=== PATIENT | female | born 1945 | race Caucasian/White ===

== ENCOUNTER → 2017-10-29 08:54 | Outpatient (CLI) | payer MEDICARE, OTHER, SELFPAY ==
--- NOTE | 2017-10-29 09:04 | DI.MRI.S_ITS ---
BREAST MRI OF BOTH BREASTS - POST MASTECTOMY: 10/29/2017 CLINICAL: Personal history of breast cancer. Family history of breast cancer. Right breast mass. PROCEDURE: MR BREAST BI WO/W CON INDICATIONS: hx of breast cancer, L mastectomy, abnormality on U/S TECHNIQUE: The patient was placed prone in a dedicated breast imaging coil. Precontrast axial STIR and 3D FLASH without fat saturation sequences were obtained. Both before and after bolus injection of contrast, sequential 1-minute axial 3D FLASH with fat saturation sequences for 3 time points, with subtraction images and maximum intensity projections (MIP's) generated. Delayed sagittal FLASH images with fat saturation were also obtained. Computer-aided detection, including computer algorithm analysis of MRI image data for lesion detection and characterization, pharmacokinetic analysis, with further physician review for interpretation, was performed. COMPARISON: [facility], , ADDITIONAL 1 VIEW, 09/19/2017, 14:07. [facility], US, BREAST UNILATERAL LIMITED, 09/19/2017, 14:43. [facility], MR, BILATERAL BREAST W FINDINGS: Image quality: Excellent. There is moderate background parenchymal enhancement. Right breast: A 3 mm diameter cystic lesion is present within the right breast at 9:00 at an anterior depth. This corresponds with the mammographic and sonographic findings. There is no enhancement. Along the posterior margin of the right breast fibroglandular tissue is a focal region of subtle enhancement. This enhancement is subthreshold for kinetic analysis (series 10, image 65). This is unchanged when compared with the prior MRI dated 10/17/16. This most likely correlates with the region of architectural distortion visualized on the lateral view in the superior breast at a posterior depth. Left breast: The left breast is surgically absent. Miscellaneous: There is no axillary adenopathy. No intramammary adenopathy. Visualized portions of the heart and mediastinum are unremarkable. IMPRESSION: NEGATIVE 1. Benign 3 mm cyst within the right breast at 9:00 which correlates with mammogram and ultrasound findings. 2. Probable MRI correlate to the region of subtle architectural distortion in the right superior breast at a posterior depth at the edge of the fibroglandular tissue. Of note, this region is unchanged when compared with the MRI dated 10/17/16. Given the stable appearance, lack of avid enhancement, and diminished prominence of the architectural distortion on the compression views, annual MRI surveillance in conjunction with annual mammogram is recommended at this time. If this region becomes more conspicuous or there is increased enhancement on future surveillance scans, biopsy should be considered. Electronically Signed By: Bing Gomes M.D. lk/:10/30/2017 16:06:54 copy to: Yoli Mejia ACR BI-RADS Category 1: Negative 3341F
[2017-10-29 09:28] LABS: BUN Creatinine Ratio 23.6 (6-22); Blood Urea Nitrogen 26 mg/dL (7-17)
== END ==
PROVIDERS: Family Provider Family Medicine; PCP Family Medicine; Visit Provider Family Medicine
DX: Z85.3 Personal history of malignant neoplasm of breast (principal); N63.10 Unspecified lump in the right breast, unspecified quadrant; Z80.3 Family history of malignant neoplasm of breast
CPT/HCPCS: 36415; 82565; 84520; A9579; C8908

== ENCOUNTER → 2017-11-26 09:46 | Outpatient (CLI) | payer MEDICARE, OTHER, SELFPAY ==
[2017-11-26 10:39] LABS: Hemoglobin A1C% w Est Avg Glu 6.8 % (4.0-6.0)
[2017-11-26 10:41] LABS: Alanine Aminotransferase 19 IU/L (9-52); Albumin 4.2 g/dL (3.5-5.0); Albumin Globulin Ratio 1.3 (1.0-2.8); Alkaline Phosphatase 67 U/L (38-126); Aspartate Aminotransferase 17 IU/L (14-36); BUN Creatinine Ratio 27.5 (6-22); Bilirubin Total 0.7 mg/dL (0.2-1.3); Blood Urea Nitrogen 33 mg/dL (7-17); Calcium 9.8 mg/dL (8.4-10.2); Carbon Dioxide 28 mmol/L (22-32); Chloride 99 mmol/L (98-107); Estimated Glomerular Filt Rate 44.3 mL/min (>60); Globulin 3.2 g/dL (1.7-4.1); Glucose 127 mg/dL (80-110); HEMOLYSIS < 15 (0-50); Potassium 3.9 mmol/L (3.4-5.1); Sodium 143 mmol/L (137-145); Total Protein 7.4 g/dL (6.3-8.2)
[2017-11-26 10:42] LABS: Creatinine Urine Random 71.3 mg/dL
[2017-11-26 10:46] LABS: Microalbumi Creatinin Ratio Ur 26.6 ug/mg CR (<30); Microalbumin Urine Random 1.9 mg/dL (0-1.6)
== END ==
PROVIDERS: PCP Family Medicine; Visit Provider Family Medicine
DX: E11.9 Type 2 diabetes mellitus without complications (principal); I10 Essential (primary) hypertension; C50.919 Malignant neoplasm of unspecified site of unspecified female breast
CPT/HCPCS: 36415; 80053; 82043; 82570; 83036

== ENCOUNTER → 2018-01-13 11:47 | Outpatient (CLI) | payer MEDICARE, OTHER, SELFPAY | PROVIDERS: Family Provider Family Medicine; PCP Family Medicine; Visit Provider Internal Medicine | DX: L59.8 Other specified disorders of the skin and subcutaneous tissue related to radiation (principal); R07.9 Chest pain, unspecified | CPT/HCPCS: 99212 ==

== ENCOUNTER 2018-02-28 12:02 | Emergency (ER) | payer MEDICARE, OTHER, SELFPAY ==
[2018-02-28 12:17] VITALS: BP 112/60; PULSE 55; RESP 18; TEMP 36.8; O2SAT 98
--- NOTE | 2018-02-28 12:42 | DI.RAD.S_ITS ---
PROCEDURE: XR CHEST 2V INDICATIONS: crackles bilaterally. TECHNIQUE: 2 views of the chest were acquired. COMPARISON: [facility], CHEST 2 VIEW, 07/21/2013, 10:17. [facility], CHEST 2 VIEW, 08/24/2014, 15:48. [facility], CHEST 2 VIEW, 12/26/2015, 13:13. FINDINGS: Surgical changes and devices: Postoperative change of the lower cervical spine and lumbar spine can be seen. Left mastectomy change is seen, with left axillary clips. Lungs and pleura: No pleural effusions or pneumothorax. Lungs are clear. Mediastinum: Mediastinal contours are normal. Heart size is normal. Bones and chest wall: Age-appropriate bony degenerative changes are seen. Mild levoconvex scoliotic curvature is noted. No suspicious bony abnormalities. Soft tissues appear unremarkable. IMPRESSION: Clear lungs. Postoperative and degenerative changes. Dictated by: Juan Mcintyre M.D. on 02/28/2018 at 12:06 Approved by: Juan Mcintyre M.D. on 02/28/2018 at 12:07
[2018-02-28 13:40] LABS: Add Manual Diff / Slide Review NO; Basophils Percent Auto 0.8 % (0-2); Eosinophils Percent Auto 3.9 % (2-4); Hematocrit 35.3 % (36-46); Hemoglobin 11.8 g/dL (12.0-16.0); Lymphocytes Percent Auto 16.3 % (25-40); Mean Corpuscular HGB Conc 33.5 % (30-36); Mean Corpuscular Hemoglobin 28.2 PG (26-34); Mean Corpuscular Volume 84.2 fL (80-100); Monocytes Percent Auto 9.2 % (3-14); Neutrophils Absolute Auto 4500 /uL (3000-5900); Neutrophils Percent Auto 69.8 % (50-75); Platelet Count 292 X10^3/uL (150-400); Red Cell Distribution Width 14.3 % (11.6-14.8); White Blood Cell Count 6.4 X10^3/uL (4.5-11.0)
[2018-02-28 13:51] LABS: PTT Partial Thromboplastin Tim 26 SECONDS (26.4-36.2)
[2018-02-28 13:53] LABS: Alanine Aminotransferase 21 IU/L (9-52); Albumin 4.3 g/dL (3.5-5.0); Albumin Globulin Ratio 1.3 (1.0-2.8); Alkaline Phosphatase 66 U/L (38-126); Aspartate Aminotransferase 17 IU/L (14-36); BUN Creatinine Ratio 26.4 (6-22); Bilirubin Total 0.5 mg/dL (0.2-1.3); Blood Urea Nitrogen 29 mg/dL (7-17); Calcium 9.7 mg/dL (8.4-10.2); Carbon Dioxide 30 mmol/L (22-32); Chloride 99 mmol/L (98-107); Estimated Glomerular Filt Rate 48.8 mL/min (>60); Globulin 3.2 g/dL (1.7-4.1); Glucose 153 mg/dL (80-110); HEMOLYSIS < 15 (0-50); Lipase 225 U/L (23-300); Potassium 3.5 mmol/L (3.4-5.1); Sodium 142 mmol/L (137-145); Total Protein 7.5 g/dL (6.3-8.2)
--- NOTE | 2018-02-28 15:10 | DI.CT.S_ITS ---
PROCEDURE: CT ABDOMEN PELVIS W CON INDICATIONS: abdomen pain, nausea, anorexia, iv contrast only. TECHNIQUE: After the administration of intravenous contrast, 5 mm thick sections acquired from the diaphragm to the symphysis. 5 mm coronal and sagittal reformats were acquired. For radiation dose reduction, the following was used: automated exposure control, adjustment of mA and/or kV according to patient size. COMPARISON: [facility], MR, ABDOMEN W&WO CONTRAST, 10/18/2016, 11:30. [facility], CT, NECK/CHEST/ABD/PEL W CONTRAST, 10/11/2016, 11:07. FINDINGS: Image quality: Excellent. ABDOMEN: Lung bases: Lung bases are clear. Heart size is normal. Postsurgical changes compatible with left mastectomy noted. There is a 0.9 x 3.3 x 1.4 cm focal fluid collection at the left mastectomy site which may represent postsurgical seroma, however infected fluid collection cannot be differentiated by imaging alone Result clinical data. Solid organs: Liver is normal in size and enhancement. Hypoattenuating lesions in the right lobe of the liver are stable and size, contour and number compared to prior examination. Gallbladder is within normal limits. Biliary system is non dilated. Pancreas enhances normally. Spleen is normal in size and enhancement. No adrenal nodules. Kidneys demonstrate normal size and enhancement, without hydronephrosis. Peritoneum and bowel: Bowel loops demonstrate normal wall thickness and caliber. Few diverticuli are noted in the sigmoid colon without evidence of diverticulitis. No free fluid or air. The appendix is normal. Nodes and vessels: No retroperitoneal or mesenteric adenopathy by size criteria. Aorta and inferior vena cava are normal in size. Scattered atherosclerotic calcifications involving the abdominal and pelvic vasculature. Miscellaneous: No ventral hernias. PELVIS: Genitourinary: Bladder wall thickness is normal. 2.9 cm subserosal uterine fibroid is massively changed. Miscellaneous: No inguinal hernias or adenopathy. Bones: No suspicious bony lesions. No vertebral body compression fractures. Spine degenerative disc disease and facet arthropathy. At L1-S1 posterior fixation hardware is stable. L3 and L4 laminectomies are stable. IMPRESSION: 1. 0.9 x 3.3 x 1.4 cm oval fluid collection in the visualized anterior left chest wall at the left mastectomy site that may represent a postsurgical seroma, however infected fluid collection cannot be differentiated by imaging alone. Please correlate with clinical data. 2. No free fluid or free air. 3. No dilated loops of bowel. 4. The appendix is normal. 5. Sigmoid colon diverticulosis without evidence of diverticulitis. 6. 2.9 cm uterine fibroid not significantly changed compared to prior CT scan. Dictated by: Kassy De La Fuente MD, PhD on 02/28/2018 at 15:29 Approved by: Kassy De La Fuente MD, PhD on 02/28/2018 at 15:40
--- NOTE | 2018-02-28 17:07 | ED.ABDPAIN ---
HPI - Abdominal Pain General Chief Complaint: Abdominal Pain Stated Complaint: ABDOMINAL PAIN,PELVIS,CRACKLING IN LUNGS Time Seen by Provider: 02/28/18 16:38 Source: patient Mode of arrival: ambulatory Limitations: no limitations History of Present Illness HPI narrative: Patient is a 72-year-old female who presents with left lower quadrant pain and left flank pain. Sent over from primary care today. She denies any nausea vomiting fevers or diarrhea. Pain is been on going for the month or more but worse over the last 2 days. She sometimes has shortness of breath when she walks, but does not seem to be much of a problem today. she denies any productive cough chest pain or heart palpitations. MD complaint: abdominal pain Onset (ago): month(s) Related Data Home Medications Medication Instructions Recorded Confirmed calcium carbonate [Calci-Chew] 600 mg PO QDAY #0 05/21/17 02/28/18 cholecalciferol (vitamin D3) 2,000 unit PO QDAY #0 06/20/17 02/28/18 CoQ-10 1 cap PO DAILY 02/28/18 02/28/18 [place] 5/16 Inch 1 units SQ HS 02/28/18 02/28/18 alendronate [Fosamax] 70 mg PO SA 02/28/18 02/28/18 aspirin 81 mg PO BEDTIME 02/28/18 02/28/18 cyanocobalamin (vitamin B-12) 1,000 mcg PO DAILY 02/28/18 02/28/18 [Vitamin B-12] gabapentin [Neurontin] 300 mg PO BID 02/28/18 02/28/18 glipizide 20 mg PO BIDAC 02/28/18 02/28/18 losartan 100 mg PO QPM 02/28/18 02/28/18 metformin ER 500 mg 3 tab PO BID tab 02/28/18 02/28/18 tablet,extended release 24 hr methimazole 5 mg PO DAILY 02/28/18 02/28/18 vit C,E-Rp-boycc-lutein-zeaxan 1 cap PO BID 02/28/18 02/28/18 [PreserVision AREDS 2] zolpidem 10 mg tablet 10 mg PO BEDTIME PRN tab 02/28/18 02/28/18 Previous Rx's Medication Instructions Recorded amlodipine 10 mg PO QDAY #90 tab 04/19/17 Glucose: Test Strips 0 str TD BID #180 str 04/30/17 atorvastatin [Lipitor] 10 mg PO HS #90 tab 06/04/17 escitalopram oxalate [Lexapro] 10 mg PO QDAY #90 tab 08/29/17 insulin glargine [Basaglar KwikPen 5 unit SQ HS #5 syr 09/10/17 U-100 Insulin] metoprolol tartrate 100 mg tablet 100 mg PO BID #180 tab 12/02/17 sitagliptin 50 mg tablet 50 mg PO QDAY #90 tab 12/02/17 hydrochlorothiazide 25 mg tablet 25 mg PO QDAY #90 tab 12/25/17 Allergies Allergy/AdvReac Type Severity Reaction Status Date / Time Anesthetics - Amide Type Allergy Intermediate PROJECTILE Verified 02/28/18 12:20 VOMITING Anesthetics - Keke Type- Allergy Intermediate PROJECTILE Verified 02/28/18 12:20 Parabens VOMITING [Anesthetics - Keke Type] Review of Systems Review of Systems All systems reviewed & are unremarkable except as noted in HPI and below Constitutional Denies chills, Denies fever(s), Denies lethargy and Denies weakness Cardiovascular Denies chest pain, Denies irregular heart rhythm, Denies lightheadedness, Denies palpitations, Reports dyspnea on exertion and Denies orthopnea Respiratory Reports dyspnea on exertion Gastrointestinal Gastrointestinal: Reports as per HPI Genitourinary Denies hematuria, Denies flank pain, Denies urinary incontinence and Denies urinary urgency Musculoskeletal Denies back pain, Denies muscle weakness, Denies numbness and Denies tingling Integumentary/Breasts Denies pruritus, Denies erythema, Denies rash and Denies wounds Neurologic Denies numbness, Denies tingling and Denies weakness Endocrine Denies palpitations [facility] Social History Smoking Status: Never smoker Exam Initial Vital Signs Initial Vital Signs: Vital Signs Temperature 98.3 F 02/28/18 12:17 Pulse Rate 55 L 02/28/18 12:17 Respiratory Rate 18 02/28/18 12:17 Blood Pressure 112/60 02/28/18 12:17 Pulse Oximetry 98 02/28/18 12:17 GENERAL: Healthy, cooperative alert and oriented x3 no acute distress HEENT: Head atraumatic,EOMI, pupils reactive, face symmetric CARDIOVASCULAR: Regular rate and rhythm without murmurs, rubs or gallops. RESPIRATORY: Breath sounds equal bilaterally, no wheezes rales or rhonchi. ABDOMEN: Soft, left lower quadrant pain no guarding no rebound : Left flank pain EXTREMITIES: Normal range of motion, no clubbing or edema. Neurovascularly intact NEUROLOGICAL: Alert and oriented x4.Normal gait and speech. Cranial nerves II through XII grossly intact. SKIN: Warm, dry, no laceration, no petechiae, no rashes or lesions. Course Orders Ordered: ED Orders 02/28/18 12:42 Chest [XR chest 2V] Stat EKG-12 Lead Stat 02/28/18 13:35 Complete Blood Count AUTO DIFF Stat Comprehensive Metabolic Panel Stat Lipase Stat Partial Thromboplastin Time Stat Prothrombin Time INR Stat 02/28/18 15:10 CT abdomen pelvis w con Stat 02/28/18 17:23 Urinalysis and Microscopic Stat Vital Signs - 8 hr 02/28/18 12:17 Temperature 98.3 F Pulse Rate 55 L Respiratory Rate 18 Blood Pressure 112/60 Pulse Oximetry 98 MDM - Abdominal Pain Medical Records Attestation: I reviewed the patient's medical records. Lab Data Attestation: I reviewed the patient's lab results. Result diagrams: 02/28/18 13:35 02/28/18 13:35 Lab Results 02/28/18 02/28/18 02/28/18 Range/Units 13:35 13:35 13:35 WBC 6.4 (4.5-11.0) X10^3/uL RBC 4.20 (4.0-5.2) X10^6/uL Hgb 11.8 L (12.0-16.0) g/dL Hct 35.3 L (36-46) % MCV 84.2 (80-100) fL MCH 28.2 (26-34) PG MCHC 33.5 (30-36) % RDW 14.3 (11.6-14.8) % Plt Count 292 (150-400) X10^3/uL Neut % (Auto) 69.8 (50-75) % Lymph % (Auto) 16.3 L (25-40) % [place] % (Auto) 9.2 (3-14) % Eos % (Auto) 3.9 (2-4) % Baso % (Auto) 0.8 (0-2) % Neut # (Auto) 4500 (4052-5232) /uL PT 11.0 (10.1-12.7) SECONDS INR 1.0 (0.9-1.3) APTT 26 L (26.4-36.2) SECONDS Sodium 142 (137-145) mmol/L Potassium 3.5 (3.4-5.1) mmol/L Chloride 99 (98-107) mmol/L Carbon Dioxide 30 (22-32) mmol/L BUN 29 H (7-17) mg/dL Creatinine 1.10 H (0.52-1.04) mg/dL Estimated GFR 48.8 L (>60) mL/min BUN/Creatinine Ratio 26.4 H (6-22) Glucose 153 H (80-110) mg/dL Calcium 9.7 (8.4-10.2) mg/dL Total Bilirubin 0.5 (0.2-1.3) mg/dL AST 17 (14-36) IU/L ALT 21 (9-52) IU/L Alkaline Phosphatase 66 (38-126) U/L Total Protein 7.5 (6.3-8.2) g/dL Albumin 4.3 (3.5-5.0) g/dL Globulin 3.2 (1.7-4.1) g/dL Albumin/Globulin Ratio 1.3 (1.0-2.8) Lipase 225 (23-300) U/L Urine Color Urine Appearance Urine pH (4.5-8.0) Ur Specific [place] (1.000-1.035) Urine Protein (Negative) Urine Glucose (UA) (Normal) g/dL Urine Ketones (NEGATIVE) Urine Occult Blood (Negative) Urine Nitrate (Negative) Urine Bilirubin (NEGATIVE) Urine Urobilinogen (0.2) E.U./dL Ur Leukocyte Esterase (NEGATIVE) Urine RBC (0-5/HPF) Urine WBC (0-5/HPF) Urine Bacteria (None) Ur Culture Indicated? Micro UA Comment 02/28/18 Range/Units 17:23 WBC (4.5-11.0) X10^3/uL RBC (4.0-5.2) X10^6/uL Hgb (12.0-16.0) g/dL Hct (36-46) % MCV (80-100) fL MCH (26-34) PG MCHC (30-36) % RDW (11.6-14.8) % Plt Count (150-400) X10^3/uL Neut % (Auto) (50-75) % Lymph % (Auto) (25-40) % [place] % (Auto) (3-14) % Eos % (Auto) (2-4) % Baso % (Auto) (0-2) % Neut # (Auto) (7760-9611) /uL PT (10.1-12.7) SECONDS INR (0.9-1.3) APTT (26.4-36.2) SECONDS Sodium (137-145) mmol/L Potassium (3.4-5.1) mmol/L Chloride (98-107) mmol/L Carbon Dioxide (22-32) mmol/L BUN (7-17) mg/dL Creatinine (0.52-1.04) mg/dL Estimated GFR (>60) mL/min BUN/Creatinine Ratio (6-22) Glucose (80-110) mg/dL Calcium (8.4-10.2) mg/dL Total Bilirubin (0.2-1.3) mg/dL AST (14-36) IU/L ALT (9-52) IU/L Alkaline Phosphatase (38-126) U/L Total Protein (6.3-8.2) g/dL Albumin (3.5-5.0) g/dL Globulin (1.7-4.1) g/dL Albumin/Globulin Ratio (1.0-2.8) Lipase (23-300) U/L Urine Color Yellow Urine Appearance Clear Urine pH 7.5 (4.5-8.0) Ur Specific [place] 1.010 (1.000-1.035) Urine Protein Negative (Negative) Urine Glucose (UA) Negative (Normal) g/dL Urine Ketones Negative (NEGATIVE) Urine Occult Blood Negative (Negative) Urine Nitrate Negative (Negative) Urine Bilirubin Negative (NEGATIVE) Urine Urobilinogen 0.2 (0.2) E.U./dL Ur Leukocyte Esterase Negative (NEGATIVE) Urine RBC None seen (0-5/HPF) Urine WBC None seen (0-5/HPF) Urine Bacteria None seen (None) Ur Culture Indicated? Not Reportable Micro UA Comment Not Reportable Imaging Data Chest x-ray: Radiologist's impression: PROCEDURE: XR CHEST 2V INDICATIONS: crackles bilaterally. TECHNIQUE: 2 views of the chest were acquired. COMPARISON: [facility], CHEST 2 VIEW, 07/21/2013, 10:17. [facility], CHEST 2 VIEW, 08/24/2014, 15:48. [facility], CHEST 2 VIEW, 12/26/2015, 13:13. FINDINGS: Surgical changes and devices: Postoperative change of the lower cervical spine and lumbar spine can be seen. Left mastectomy change is seen, with left axillary clips. Lungs and pleura: No pleural effusions or pneumothorax. Lungs are clear. Mediastinum: Mediastinal contours are normal. Heart size is normal. Bones and chest wall: Age-appropriate bony degenerative changes are seen. Mild levoconvex scoliotic curvature is noted. No suspicious bony abnormalities. Soft tissues appear unremarkable. IMPRESSION: Clear lungs. Postoperative and degenerative changes. Dictated by: Juan Mcintyre M.D. on 02/28/2018 at 12:06 CT scan - abdomen: Radiologist's impression: PROCEDURE: CT ABDOMEN PELVIS W CON INDICATIONS: abdomen pain, nausea, anorexia, iv contrast only. TECHNIQUE: After the administration of intravenous contrast, 5 mm thick sections acquired from the diaphragm to the symphysis. 5 mm coronal and sagittal reformats were acquired. For radiation dose reduction, the following was used: automated exposure control, adjustment of mA and/or kV according to patient size. COMPARISON: [facility], MR, ABDOMEN W&WO CONTRAST, 10/18/2016, 11:30. [facility], CT, NECK/CHEST/ABD/PEL W CONTRAST, 10/11/2016, 11:07. FINDINGS: Image quality: Excellent. ABDOMEN: Lung bases: Lung bases are clear. Heart size is normal. Postsurgical changes compatible with left mastectomy noted. There is a 0.9 x 3.3 x 1.4 cm focal fluid collection at the left mastectomy site which may represent postsurgical seroma, however infected fluid collection cannot be differentiated by imaging alone Result clinical data. Solid organs: Liver is normal in size and enhancement. Hypoattenuating lesions in the right lobe of the liver are stable and size, contour and number compared to prior examination. Gallbladder is within normal limits. Biliary system is non dilated. Pancreas enhances normally. Spleen is normal in size and enhancement. No adrenal nodules. Kidneys demonstrate normal size and enhancement, without hydronephrosis. Peritoneum and bowel: Bowel loops demonstrate normal wall thickness and caliber. Few diverticuli are noted in the sigmoid colon without evidence of diverticulitis. No free fluid or air. The appendix is normal. Nodes and vessels: No retroperitoneal or mesenteric adenopathy by size criteria. Aorta and inferior vena cava are normal in size. Scattered atherosclerotic calcifications involving the abdominal and pelvic vasculature. Miscellaneous: No ventral hernias. PELVIS: Genitourinary: Bladder wall thickness is normal. 2.9 cm subserosal uterine fibroid is massively changed. Miscellaneous: No inguinal hernias or adenopathy. Bones: No suspicious bony lesions. No vertebral body compression fractures. Spine degenerative disc disease and facet arthropathy. At L1-S1 posterior fixation hardware is stable. L3 and L4 laminectomies are stable. IMPRESSION: 1. 0.9 x 3.3 x 1.4 cm oval fluid collection in the visualized anterior left chest wall at the left mastectomy site that may represent a postsurgical seroma, however infected fluid collection cannot be differentiated by imaging alone. Please correlate with clinical data. 2. No free fluid or free air. 3. No dilated loops of bowel. 4. The appendix is normal. 5. Sigmoid colon diverticulosis without evidence of diverticulitis. 6. 2.9 cm uterine fibroid not significantly changed compared to prior CT scan. Dictated by: Kassy De La Fuente MD, PhD on 02/28/2018 at 15:29 ECG Data Attestation: I personally reviewed and interpreted this ECG as follows: Prior ECG tracings: available for review Interpretation: Normal sinus rhythm rate [address] changes MS interval 207, QTC to 88 QRS as 83. 1st degree AV heart block remains unchanged from previous EKG in 2017 [facility] Narrative Medical decision making narrative: Patient is mostly complaining of all left lower quadrant and flank pain. CT does show a seroma left anterior chest where her mastectomy was. She is not complaining of any chest discomfort. He is with afebrile this is unlikely the cause of her left lower quadrant pain. Blood work is unremarkable. Patient overall is feeling much better ready and able to go home. PE was considered she does have breast cancer. His she really is more complaining of abdominal discomfort she is not hypoxic or tachycardic her lungs are clear. At this time I do not think further imaging is required. Discharge Plan Departure Patient Disposition: Home Clinical Impression: Abdominal pain Discharge Date/Time: 02/28/18 18:39 Interventions: ED Discharge Assessment Last Done: 02/28/18 18:39 Instructions: Acute Abdominal Pain Activity Restrictions/Additional Instructions: *You have been diagnosed with abdominal pain *What to do: Blood work and urine are reassuring. CT scan does show a fluid collection on the left chest unlikely to be causing any issues or problems today. *Continue to take medications as directed *Follow up with your primary care provider in 2-3 days *Return to ER if you should have worsening pain, fever, numbness, tingling or any new, worsening or concerning symptoms Prescriptions: No Action amlodipine 10 MG tablet 10 mg PO QDAY Qty: 90 RF: 3 Glucose: Test Strips TD BID Qty: 180 RF: 11 calcium carbonate [Calci-Chew] 500 MG tablet,chewable 600 mg PO QDAY Qty: 0 RF: 0 atorvastatin [Lipitor] 10 MG tablet 10 mg PO HS Qty: 90 RF: 3 cholecalciferol (vitamin D3) 5,000 UNIT capsule 2,000 unit PO QDAY Qty: 0 RF: 0 escitalopram oxalate [Lexapro] 10 MG tablet 10 mg PO QDAY Qty: 90 RF: 3 insulin glargine [Basaglar KwikPen U-100 Insulin] 100 UNIT/1 ML insulin pen 5 unit SQ HS Qty: 5 RF: 1 hydrochlorothiazide 25 mg tablet 25 mg PO QDAY Qty: 90 RF: 1 metoprolol tartrate [Lopressor] 100 mg tablet 100 mg PO BID Qty: 180 RF: 3 sitagliptin [Januvia] 50 mg tablet 50 mg PO QDAY Qty: 90 RF: 3 zolpidem [Ambien] 10 mg tablet 10 mg PO BEDTIME PRN (Reason: Sleep) RF: 0 metformin [Glucophage XR] 500 mg tablet extended release 24 hr 3 tab PO BID RF: 0 methimazole 5 mg tablet 5 mg PO DAILY RF: 0 [place] 5/16 Inch 1 units SQ HS RF: 0 cyanocobalamin (vitamin B-12) [Vitamin B-12] 1,000 mcg Tablet 1,000 mcg PO DAILY RF: 0 aspirin 81 mg Tablet,Delayed Release (Dr/Ec) 81 mg PO BEDTIME RF: 0 vit C,X-Ed-foluu-lutein-zeaxan [PreserVision AREDS 2] [id number]-mg Capsule 1 cap PO BID RF: 0 CoQ-10 1 cap PO DAILY RF: 0 glipizide 10 mg tablet 20 mg PO BIDAC RF: 0 alendronate [Fosamax] 70 MG tablet 70 mg PO SA RF: 0 gabapentin [Neurontin] 300 MG capsule 300 mg PO BID RF: 0 losartan 100 mg tablet 100 mg PO QPM RF: 0 Referrals: Yoli Mejia MD [Primary Care Provider] -
[2018-02-28 17:27] LABS: Appearance Urine UA CLEAR; Bacteria Urine None Seen; Bilirubin Urine UA NEGATIVE (NEGATIVE); Color Urine UA YELLOW; Glucose Urine UA NEGATIVE (Normal); Ketones Urine UA NEGATIVE (NEGATIVE); Leukocyte Esterase Urine UA NEGATIVE (NEGATIVE); Nitrite Urine UA Negative (Negative); Occult Blood Urine UA NEGATIVE (Negative); Protein Urine UA NEGATIVE (Negative); RBC Urine None Seen (0-5/HPF); Urobilinogen Urine UA 0.2 E.U./dL (0.2); WBC Urine None Seen (0-5/HPF); pH Urine UA 7.5 (4.5-8.0)
--- NOTE | 2018-02-28 18:31 | ED_ITS ---
HPI - Abdominal Pain General Chief Complaint: Abdominal Pain Stated Complaint: ABDOMINAL PAIN,PELVIS,CRACKLING IN LUNGS Time Seen by Provider: 02/28/18 16:38 Source: patient Mode of arrival: ambulatory Limitations: no limitations History of Present Illness HPI narrative: Patient is a 72-year-old female who presents with left lower quadrant pain and left flank pain. Sent over from primary care today. She denies any nausea vomiting fevers or diarrhea. Pain is been on going for the month or more but worse over the last 2 days. She sometimes has shortness of breath when she walks, but does not seem to be much of a problem today. she denies any productive cough chest pain or heart palpitations. MD complaint: abdominal pain Onset (ago): month(s) Related Data Home Medications Medication Instructions Recorded Confirmed calcium carbonate [Calci-Chew] 600 mg PO QDAY #0 05/21/17 02/28/18 cholecalciferol (vitamin D3) 2,000 unit PO QDAY #0 06/20/17 02/28/18 CoQ-10 1 cap PO DAILY 02/28/18 02/28/18 [place] 5/16 Inch 1 units SQ HS 02/28/18 02/28/18 alendronate [Fosamax] 70 mg PO SA 02/28/18 02/28/18 aspirin 81 mg PO BEDTIME 02/28/18 02/28/18 cyanocobalamin (vitamin B-12) 1,000 mcg PO DAILY 02/28/18 02/28/18 [Vitamin B-12] gabapentin [Neurontin] 300 mg PO BID 02/28/18 02/28/18 glipizide 20 mg PO BIDAC 02/28/18 02/28/18 losartan 100 mg PO QPM 02/28/18 02/28/18 metformin ER 500 mg 3 tab PO BID tab 02/28/18 02/28/18 tablet,extended release 24 hr methimazole 5 mg PO DAILY 02/28/18 02/28/18 vit C,Q-Bz-fpfhc-lutein-zeaxan 1 cap PO BID 02/28/18 02/28/18 [PreserVision AREDS 2] zolpidem 10 mg tablet 10 mg PO BEDTIME PRN tab 02/28/18 02/28/18 Previous Rx's Medication Instructions Recorded amlodipine 10 mg PO QDAY #90 tab 04/19/17 Glucose: Test Strips 0 str TD BID #180 str 04/30/17 atorvastatin [Lipitor] 10 mg PO HS #90 tab 06/04/17 escitalopram oxalate [Lexapro] 10 mg PO QDAY #90 tab 08/29/17 insulin glargine [Basaglar KwikPen 5 unit SQ HS #5 syr 09/10/17 U-100 Insulin] metoprolol tartrate 100 mg tablet 100 mg PO BID #180 tab 12/02/17 sitagliptin 50 mg tablet 50 mg PO QDAY #90 tab 12/02/17 hydrochlorothiazide 25 mg tablet 25 mg PO QDAY #90 tab 12/25/17 Allergies Allergy/AdvReac Type Severity Reaction Status Date / Time Anesthetics - Amide Type Allergy Intermediate PROJECTILE Verified 02/28/18 12:20 VOMITING Anesthetics - Keke Type- Allergy Intermediate PROJECTILE Verified 02/28/18 12: 20 Parabens VOMITING [Anesthetics - Keke Type] Review of Systems Review of Systems All systems reviewed & are unremarkable except as noted in HPI and below Constitutional Denies chills, Denies fever(s), Denies lethargy and Denies weakness Cardiovascular Denies chest pain, Denies irregular heart rhythm, Denies lightheadedness, Denies palpitations, Reports dyspnea on exertion and Denies orthopnea Respiratory Reports dyspnea on exertion Gastrointestinal Gastrointestinal: Reports as per HPI Genitourinary Denies hematuria, Denies flank pain, Denies urinary incontinence and Denies urinary urgency Musculoskeletal Denies back pain, Denies muscle weakness, Denies numbness and Denies tingling Integumentary/Breasts Denies pruritus, Denies erythema, Denies rash and Denies wounds Neurologic Denies numbness, Denies tingling and Denies weakness Endocrine Denies palpitations [facility] Social History Smoking Status: Never smoker Exam Initial Vital Signs Initial Vital Signs: Vital Signs Temperature 98.3 F 02/28/18 12:17 Pulse Rate 55 L 02/28/18 12:17 Respiratory Rate 18 02/28/18 12:17 Blood Pressure 112/60 02/28/18 12:17 Pulse Oximetry 98 02/28/18 12:17 GENERAL: Healthy, cooperative alert and oriented x3 no acute distress HEENT: Head atraumatic,EOMI, pupils reactive, face symmetric CARDIOVASCULAR: Regular rate and rhythm without murmurs, rubs or gallops. RESPIRATORY: Breath sounds equal bilaterally, no wheezes rales or rhonchi. ABDOMEN: Soft, left lower quadrant pain no guarding no rebound : Left flank pain EXTREMITIES: Normal range of motion, no clubbing or edema. Neurovascularly intact NEUROLOGICAL: Alert and oriented x4.Normal gait and speech. Cranial nerves II through XII grossly intact. SKIN: Warm, dry, no laceration, no petechiae, no rashes or lesions. Course Orders Ordered: ED Orders 02/28/18 12:42 Chest [XR chest 2V] Stat EKG-12 Lead Stat 02/28/18 13:35 Complete Blood Count AUTO DIFF Stat Comprehensive Metabolic Panel Stat Lipase Stat Partial Thromboplastin Time Stat Prothrombin Time INR Stat 02/28/18 15:10 CT abdomen pelvis w con Stat 02/28/18 17:23 Urinalysis and Microscopic Stat Vital Signs - 8 hr 02/28/18 12:17 Temperature 98.3 F Pulse Rate 55 L Respiratory Rate 18 Blood Pressure 112/60 Pulse Oximetry 98 MDM - Abdominal Pain Medical Records Attestation: I reviewed the patient's medical records. Lab Data Attestation: I reviewed the patient's lab results. Result diagrams: 02/28/18 13:35 02/28/18 13:35 Lab Results 02/28/18 02/28/18 02/28/18 Range/Units 13:35 13:35 13:35 WBC 6.4 (4.5-11.0) X10^3/uL RBC 4.20 (4.0-5.2) X10^6/uL Hgb 11.8 L (12.0-16.0) g/dL Hct 35.3 L (36-46) % MCV 84.2 (80-100) fL MCH 28.2 (26-34) PG MCHC 33.5 (30-36) % RDW 14.3 (11.6-14.8) % Plt Count 292 (150-400) X10^3/uL Neut % (Auto) 69.8 (50-75) % Lymph % (Auto) 16.3 L (25-40) % [place] % (Auto) 9.2 (3-14) % Eos % (Auto) 3.9 (2-4) % Baso % (Auto) 0.8 (0-2) % Neut # (Auto) 4500 (6515-5118) /uL PT 11.0 (10.1-12.7) SECONDS INR 1.0 (0.9-1.3) APTT 26 L (26.4-36.2) SECONDS Sodium 142 (137-145) mmol/L Potassium 3.5 (3.4-5.1) mmol/L Chloride 99 (98-107) mmol/L Carbon Dioxide 30 (22-32) mmol/L BUN 29 H (7-17) mg/dL Creatinine 1.10 H (0.52-1.04) mg/dL Estimated GFR 48.8 L (>60) mL/min BUN/Creatinine Ratio 26.4 H (6-22) Glucose 153 H (80-110) mg/dL Calcium 9.7 (8.4-10.2) mg/dL Total Bilirubin 0.5 (0.2-1.3) mg/dL AST 17 (14-36) IU/L ALT 21 (9-52) IU/L Alkaline Phosphatase 66 (38-126) U/L Total Protein 7.5 (6.3-8.2) g/dL Albumin 4.3 (3.5-5.0) g/dL Globulin 3.2 (1.7-4.1) g/dL Albumin/Globulin Ratio 1.3 (1.0-2.8) Lipase 225 (23-300) U/L Urine Color Urine Appearance Urine pH (4.5-8.0) Ur Specific [place] (1.000-1.035) Urine Protein (Negative) Urine Glucose (UA) (Normal) g/dL Urine Ketones (NEGATIVE) Urine Occult Blood (Negative) Urine Nitrate (Negative) Urine Bilirubin (NEGATIVE) Urine Urobilinogen (0.2) E.U./dL Ur Leukocyte Esterase (NEGATIVE) Urine RBC (0-5/HPF) Urine WBC (0-5/HPF) Urine Bacteria (None) Ur Culture Indicated? Micro UA Comment 02/28/18 Range/Units 17:23 WBC (4.5-11.0) X10^3/uL RBC (4.0-5.2) X10^6/uL Hgb (12.0-16.0) g/dL Hct (36-46) % MCV (80-100) fL MCH (26-34) PG MCHC (30-36) % RDW (11.6-14.8) % Plt Count (150-400) X10^3/uL Neut % (Auto) (50-75) % Lymph % (Auto) (25-40) % [place] % (Auto) (3-14) % Eos % (Auto) (2-4) % Baso % (Auto) (0-2) % Neut # (Auto) (1578-9627) /uL PT (10.1-12.7) SECONDS INR (0.9-1.3) APTT (26.4-36.2) SECONDS Sodium (137-145) mmol/L Potassium (3.4-5.1) mmol/L Chloride (98-107) mmol/L Carbon Dioxide (22-32) mmol/L BUN (7-17) mg/dL Creatinine (0.52-1.04) mg/dL Estimated GFR (>60) mL/min BUN/Creatinine Ratio (6-22) Glucose (80-110) mg/dL Calcium (8.4-10.2) mg/dL Total Bilirubin (0.2-1.3) mg/dL AST (14-36) IU/L ALT (9-52) IU/L Alkaline Phosphatase (38-126) U/L Total Protein (6.3-8.2) g/dL Albumin (3.5-5.0) g/dL Globulin (1.7-4.1) g/dL Albumin/Globulin Ratio (1.0-2.8) Lipase (23-300) U/L Urine Color Yellow Urine Appearance Clear Urine pH 7.5 (4.5-8.0) Ur Specific [place] 1.010 (1.000-1.035) Urine Protein Negative (Negative) Urine Glucose (UA) Negative (Normal) g/dL Urine Ketones Negative (NEGATIVE) Urine Occult Blood Negative (Negative) Urine Nitrate Negative (Negative) Urine Bilirubin Negative (NEGATIVE) Urine Urobilinogen 0.2 (0.2) E.U./dL Ur Leukocyte Esterase Negative (NEGATIVE) Urine RBC None seen (0-5/HPF) Urine WBC None seen (0-5/HPF) Urine Bacteria None seen (None) Ur Culture Indicated? Not Reportable Micro UA Comment Not Reportable Imaging Data Chest x-ray: Radiologist's impression: PROCEDURE: XR CHEST 2V INDICATIONS: crackles bilaterally. TECHNIQUE: 2 views of the chest were acquired. COMPARISON: [facility], CHEST 2 VIEW, 07/21/2013, 10:17. [facility], CHEST 2 VIEW, 08/24/2014, 15:48. [facility], CHEST 2 VIEW, 12/26/2015, 13:13. FINDINGS: Surgical changes and devices: Postoperative change of the lower cervical spine and lumbar spine can be seen. Left mastectomy change is seen, with left axillary clips. Lungs and pleura: No pleural effusions or pneumothorax. Lungs are clear. Mediastinum: Mediastinal contours are normal. Heart size is normal. Bones and chest wall: Age-appropriate bony degenerative changes are seen. Mild levoconvex scoliotic curvature is noted. No suspicious bony abnormalities. Soft tissues appear unremarkable. IMPRESSION: Clear lungs. Postoperative and degenerative changes. Dictated by: Juan Mcintyre M.D. on 02/28/2018 at 12:06 CT scan - abdomen: Radiologist's impression: PROCEDURE: CT ABDOMEN PELVIS W CON INDICATIONS: abdomen pain, nausea, anorexia, iv contrast only. TECHNIQUE: After the administration of intravenous contrast, 5 mm thick sections acquired from the diaphragm to the symphysis. 5 mm coronal and sagittal reformats were acquired. For radiation dose reduction, the following was used: automated exposure control, adjustment of mA and/or kV according to patient size. COMPARISON: [facility], MR, ABDOMEN W&WO CONTRAST, 10/18/2016, 11:30. [facility], CT, NECK/CHEST/ABD/PEL W CONTRAST, 10/11/2016, 11:07. FINDINGS: Image quality: Excellent. ABDOMEN: Lung bases: Lung bases are clear. Heart size is normal. Postsurgical changes compatible with left mastectomy noted. There is a 0.9 x 3.3 x 1.4 cm focal fluid collection at the left mastectomy site which may represent postsurgical seroma, however infected fluid collection cannot be differentiated by imaging alone Result clinical data. Solid organs: Liver is normal in size and enhancement. Hypoattenuating lesions in the right lobe of the liver are stable and size, contour and number compared to prior examination. Gallbladder is within normal limits. Biliary system is non dilated. Pancreas enhances normally. Spleen is normal in size and enhancement. No adrenal nodules. Kidneys demonstrate normal size and enhancement, without hydronephrosis. Peritoneum and bowel: Bowel loops demonstrate normal wall thickness and caliber. Few diverticuli are noted in the sigmoid colon without evidence of diverticulitis. No free fluid or air. The appendix is normal. Nodes and vessels: No retroperitoneal or mesenteric adenopathy by size criteria. Aorta and inferior vena cava are normal in size. Scattered atherosclerotic calcifications involving the abdominal and pelvic vasculature. Miscellaneous: No ventral hernias. PELVIS: Genitourinary: Bladder wall thickness is normal. 2.9 cm subserosal uterine fibroid is massively changed. Miscellaneous: No inguinal hernias or adenopathy. Bones: No suspicious bony lesions. No vertebral body compression fractures. Spine degenerative disc disease and facet arthropathy. At L1-S1 posterior fixation hardware is stable. L3 and L4 laminectomies are stable. IMPRESSION: 1. 0.9 x 3.3 x 1.4 cm oval fluid collection in the visualized anterior left chest wall at the left mastectomy site that may represent a postsurgical seroma, however infected fluid collection cannot be differentiated by imaging alone. Please correlate with clinical data. 2. No free fluid or free air. 3. No dilated loops of bowel. 4. The appendix is normal. 5. Sigmoid colon diverticulosis without evidence of diverticulitis. 6. 2.9 cm uterine fibroid not significantly changed compared to prior CT scan. Dictated by: Kassy De La Fuente MD, PhD on 02/28/2018 at 15:29 ECG Data Attestation: I personally reviewed and interpreted this ECG as follows: Prior ECG tracings: available for review Interpretation: Normal sinus rhythm rate [address] changes MS interval 207, QTC to 88 QRS as 83. 1st degree AV heart block remains unchanged from previous EKG in 2017 [facility] Narrative Medical decision making narrative: Patient is mostly complaining of all left lower quadrant and flank pain. CT does show a seroma left anterior chest where her mastectomy was. She is not complaining of any chest discomfort. He is with afebrile this is unlikely the cause of her left lower quadrant pain. Blood work is unremarkable. Patient overall is feeling much better ready and able to go home. PE was considered she does have breast cancer. His she really is more complaining of abdominal discomfort she is not hypoxic or tachycardic her lungs are clear. At this time I do not think further imaging is required. Discharge Plan Departure Patient Disposition: Home Clinical Impression: Abdominal pain Discharge Date/Time: 02/28/18 18:39 Interventions: ED Discharge Assessment Last Done: 02/28/18 18:39 Instructions: Acute Abdominal Pain Activity Restrictions/Additional Instructions: *You have been diagnosed with abdominal pain *What to do: Blood work and urine are reassuring. CT scan does show a fluid collection on the left chest unlikely to be causing any issues or problems today. *Continue to take medications as directed *Follow up with your primary care provider in 2-3 days *Return to ER if you should have worsening pain, fever, numbness, tingling or any new, worsening or concerning symptoms Prescriptions: No Action amlodipine 10 MG tablet 10 mg PO QDAY Qty: 90 RF: 3 Glucose: Test Strips TD BID Qty: 180 RF: 11 calcium carbonate [Calci-Chew] 500 MG tablet,chewable 600 mg PO QDAY Qty: 0 RF: 0 atorvastatin [Lipitor] 10 MG tablet 10 mg PO HS Qty: 90 RF: 3 cholecalciferol (vitamin D3) 5,000 UNIT capsule 2,000 unit PO QDAY Qty: 0 RF: 0 escitalopram oxalate [Lexapro] 10 MG tablet 10 mg PO QDAY Qty: 90 RF: 3 insulin glargine [Basaglar KwikPen U-100 Insulin] 100 UNIT/1 ML insulin pen 5 unit SQ HS Qty: 5 RF: 1 hydrochlorothiazide 25 mg tablet 25 mg PO QDAY Qty: 90 RF: 1 metoprolol tartrate [Lopressor] 100 mg tablet 100 mg PO BID Qty: 180 RF: 3 sitagliptin [Januvia] 50 mg tablet 50 mg PO QDAY Qty: 90 RF: 3 zolpidem [Ambien] 10 mg tablet 10 mg PO BEDTIME PRN (Reason: Sleep) RF: 0 metformin [Glucophage XR] 500 mg tablet extended release 24 hr 3 tab PO BID RF: 0 methimazole 5 mg tablet 5 mg PO DAILY RF: 0 [place] 5/16 Inch 1 units SQ HS RF: 0 cyanocobalamin (vitamin B-12) [Vitamin B-12] 1,000 mcg Tablet 1,000 mcg PO DAILY RF: 0 aspirin 81 mg Tablet,Delayed Release (Dr/Ec) 81 mg PO BEDTIME RF: 0 vit C,Z-Wf-wjogv-lutein-zeaxan [PreserVision AREDS 2] [phone] mg-unit-mg- mg Capsule 1 cap PO BID RF: 0 CoQ-10 1 cap PO DAILY RF: 0 glipizide 10 mg tablet 20 mg PO BIDAC RF: 0 alendronate [Fosamax] 70 MG tablet 70 mg PO SA RF: 0 gabapentin [Neurontin] 300 MG capsule 300 mg PO BID RF: 0 losartan 100 mg tablet 100 mg PO QPM RF: 0 Referrals: Yoli Mejia MD [Primary Care Provider] -
--- NOTE | 2018-02-28 18:38 | PC.NURSE ---
intermittent lt lower abd pain for weeks denies palliation/provocation nontender denies nausea/vomiting/diarrhea/dysuria/fever/trauma or other sx
[2018-02-28 18:39] VITALS: BP 114/70; PULSE 54; RESP 18; O2SAT 97
[2018-02-28 18:45] VITALS: BP 139/70; PULSE 66; RESP 16; O2SAT 94
== END 2018-02-28 18:39 | disposition home or self-care (01) ==
PROVIDERS: Emergency Provider Emergency Medicine; Family Provider Family Medicine; PCP Family Medicine
DX: R10.9 Unspecified abdominal pain (principal)
CPT/HCPCS: 36591; 71046; 74177; 80053; 81001; 83690; 85025; 85610; 85730; 93005; 99282; 99285; Q9967

== ENCOUNTER → 2018-03-17 12:59 | Outpatient (CLI) | payer MEDICARE, OTHER, SELFPAY ==
[2018-03-17 13:29] LABS: Add Manual Diff / Slide Review NO; Eosinophils Percent Auto 2.7 % (2-4); Hematocrit 36.9 % (36-46); Hemoglobin 12.3 g/dL (12.0-16.0); Lymphocytes Percent Auto 16.1 % (25-40); Mean Corpuscular HGB Conc 33.4 % (30-36); Mean Corpuscular Hemoglobin 28.1 PG (26-34); Mean Corpuscular Volume 84.1 fL (80-100); Neutrophils Absolute Auto 5000 /uL (3000-5900); Neutrophils Percent Auto 70.2 % (50-75); Platelet Count 327 X10^3/uL (150-400); Red Blood Cell Count 4.38 X10^6/uL (4.0-5.2); Red Cell Distribution Width 14.5 % (11.6-14.8); White Blood Cell Count 7.1 X10^3/uL (4.5-11.0)
[2018-03-17 14:01] LABS: Alanine Aminotransferase 25 IU/L (9-52); Albumin 4.4 g/dL (3.5-5.0); Albumin Globulin Ratio 1.4 (1.0-2.8); Alkaline Phosphatase 66 U/L (38-126); Aspartate Aminotransferase 21 IU/L (14-36); BUN Creatinine Ratio 26.4 (6-22); Bilirubin Total 0.6 mg/dL (0.2-1.3); Blood Urea Nitrogen 37 mg/dL (7-17); Calcium 9.5 mg/dL (8.4-10.2); Carbon Dioxide 32 mmol/L (22-32); Chloride 97 mmol/L (98-107); Globulin 3.1 g/dL (1.7-4.1); Glucose 205 mg/dL (80-110); HEMOLYSIS < 15 (0-50); Potassium 3.7 mmol/L (3.4-5.1); Sodium 141 mmol/L (137-145); Total Protein 7.5 g/dL (6.3-8.2)
== END ==
PROVIDERS: Family Provider Family Medicine; PCP Family Medicine; Visit Provider Nurse Practitioner Gerontology
DX: C50.912 Malignant neoplasm of unspecified site of left female breast (principal); Z17.0 Estrogen receptor positive status [ER+]
CPT/HCPCS: 36415; 80053; 85025

== ENCOUNTER 2018-03-24 14:30 | Oncology outpatient (ONC) | payer MEDICARE, OTHER, SELFPAY ==
[2017-10-30 14:54] VITALS: BP 131/57; PULSE 57; RESP 15; TEMP 37.3; O2SAT 99
--- NOTE | 2017-10-30 16:39 | ONC.PN ---
Assessment and Plan - Time Spent with Patient IMPRESSION: 1. Abnormal findings on recent breast ultrasound. MRI right breast October 29, 2017 report pending. 2. Stage IIB (pT3, N0, M0) carcinoma the left breast diagnosed September 12, 2016 with punch biopsy at edge of left nipple. Invasive ductal carcinoma, low-grade 4/9, mitotic rate 1, ER/HI positive, HER2 negative. Left breast mastectomy November 08, 2016. Tried letrozole, exemestane and finely tamoxifen but could not tolerate endocrine therapy. 3. History of carcinoma the left breast, multifocal in 1993, biopsied 11/17/1993 treated with lumpectomy, radiation therapy and 5 years of adjuvant tamoxifen. 4. Diabetes mellitus type 2 5. BRCA 1, 2 gene mutation negative. 6. Osteopenia. 7. Hypertension. I reviewed recent ultrasound reports with her and her today. Her MRI report is still pending. No concerning findings on examination. She will call back in the next 1-2 days for the MRI results. I reviewed the potential risk for false positive results given the high sensitivity of breast MRI screening. Advised her that follow-up targeted right breast ultrasound may be recommended pending MRI results. Offered reassurance and encouragement to her today. We will need to await the final report and subsequent diagnostic imaging before making any necessary and relevant treatment plan. If the MRI results are reassuring then we will coordinate follow-up surveillance monitoring. I would recommend a return appointment here in 4 months and at that time, if stable consider 6 month visits. She reaffirms her previous decision to forego adjuvant endocrine therapy at this time. PLAN: 1. Breast MRI report pending. 2. Further imaging including targeted right breast ultrasound if indicated based on results. 3. Continue self monitoring, self examination and call back as needed. 4. Calcium, vitamin-D weight-bearing exercise program. 5. Follow up with other providers as planned. 6. Return appointment with me in 4 months. 7. Anticipate a right breast ultrasound in 6 months then annual for screening. 8. Consider repeat breast MRI in 1 year pending results. DICTATED BY BULL LYNCH MD MEDICAL ONCOLOGY AND HEMATOLOGY PN -Subjective Interval history: MEDICAL ONCOLOGY/HEMATOLOGY PROGRESS NOTE DATE OF SERVICE: OCTOBER 30, 2017 PATIENT NAME: Lois Barakat DATE OF : 1945 PCP: Yoli Mejia MD IDENTIFICATION: Ms. Barakat is a 71-year-old woman with history of recurrent left-sided breast cancer who returns in follow-up today to review MRI and recent breast ultrasound results. INTERVAL HISTORY: He returns today accompanied by her . Most recent visit here with Dr. Hernandez on August 01, 2017 and with Yamila BELTRE on September 10, 2017. Recent imaging with mammogram September 03, 2017 showed 2 areas of density in the right breast. She returned for right breast ultrasound on September 19, 2017 which showed suspicious findings of an irregular mass in the right breast at 12 o'clock anterior depth. Also 3 mm oval complex cyst in the right breast at 10 o'clock anterior depth is suspicious. She returned for ultrasound guided biopsy on September 27, 2017 however findings at that time were just of a simple cyst at 9:30 with no additional suspicious findings 2 targeted for a biopsy. Dr Gomes all recommended deferring the biopsy in scheduling her for breast MRI. She had the MRI yesterday but the report is not yet available. She otherwise feels fine. She is not able to palpate anything different on self exam. No new bone pain, chest wall swelling or palpable lumps in the chest wall or axillary region. Appetite and energy level are stable. No cough, dyspnea, nausea or abdominal pain. She previously tried adjuvant endocrine therapy but could not tolerate it, initially with letrozole then exemestane and most recently tamoxifen. PAST ONCOLOGY HISTORY: Past Medical History The patient's past medical history is significant for: 1) Left Breast Cancer: ipsilateral recurrence. Stage IIB (pT3,N0,M0). Diagnosis/breast surgeries: -09/12/2016. Left-sided 6 mm punch biopsy at the edge of the nipple.. Pathology confirming invasive ductal carcinoma. Invasive neoplasm involving the dermis and focally involving the epidermis. Low-grade with a Irina score of 4 of 9. Mitotic rate was 1. No angiolymphatic invasion was identified. Tumor focally invades epidermis but not in a pagetoid pattern. Immunostains for ER HI positive at 100% and 100% respectively HER-2 1+. -11/08/2016: Left breast total mastectomy. Pathology confirming an invasive mammary carcinoma measuring 85 mm in greatest depth. Irina histological score of 1 with a mitotic rate of 1. Lesion invades into the epidermis focally without skin ulceration. Nipple epidermis not involved. Posterior margin greater than 10 mm. 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 Margins from DCIS rate of than 10 mm. One intramammary lymph node identified negative for disease. Final pathological stage IIB (pTIII PN0). Clinical staging workup: -07/16/2016 Bilateral screening mammogram: Breast tissue noted to be heterogeneously dense. No significant masses calcifications or other findings seen in either breast. No significant interval change from prior mammogram dated 04/11/2015.- 05/21/2016 L-spine without contrast. Indication was lower back pain. Diffuse osteopenia seen. Posterior spinal fixation with paraspinal esmer and pedicle screws seen from levels L2-S1. Bilateral sacroiliac screws also noted. Heart were grossly intact. Mild progression of bilateral L1-L2 bony foraminal stenosis. Otherwise grossly unchanged from 11/22/2015 scan. -10/11/2016: CT neck chest abdomen pelvis with contrast. Only abnormality were several indeterminate hypodense hepatic lesions. -10/11/2016: Whole body bone scan. No evidence of metastatic bone disease. -10/18/2016: MRI of the liver. 4 discrete minimally complex cysts identified all subcentimeter in size. Breast Cancer Risk Assessment: -03/31/2012. [facility] This was negative for mutation on BRCA 1/BRCA2 sequencing as well as BRCA1 5-site rearrangement panel. Prognostic workup: -5 and 10 year OS based on [email or web address]: 86 and 67% -11/15/2016. Oncotype DX. Her current score equal to 12. 10 year risk of distant recurrence after 5 years of tamoxifen = 8%. -01/17/2017. Echocardiogram. Ejection fraction 70 is 75%. Mild aortic regurg. Left ventricle normal in size. Radiation/Adjuvant therapy: -March 2017. Radiation Oncology Consult: Radiation contraindicated given her previous exposure. -March 2017-May 2017: Letrozole -June 2017 - Present: Exemestane 1 mg daily. Patient not interested in pursuing further tamoxifen. 2) Multifocal left-sided breast cancer. Diagnosis in 1993. Patient is status incisional biopsy on 11/17/1993 at which time 2 biopsies were performed. The first taken from the left breast. Pathology confirming a 12 x 11 mm infiltrating ductal carcinoma well differentiated. The second sample was an excisional procedure which was more cephalad, slightly towards the axillary tail. Pathology confirming a well-differentiated infiltrating ductal carcinoma measuring 7 mm focally extending to the inked margin. Patient subsequently underwent lumpectomy with complete node dissection on 12/17/1993. No pathology available. Patient underwent radiation therapy followed by tamoxifen ??5 years. Patient has residual numbness involving the proximal left arm. Patient did notice intermittent waves of depression while on Tamoxifen. Patient was subsequently placed on an SSRI during the entire time she was on tamoxifen. 3) Insulin-dependent diabetes: Diagnosed on 2005. Started Lantus on July 2016. Hemoglobin A1c on 06/14/2016 at 7.0. Patient has neuropathy currently on gabapentin. 4) Hypertension. 5) osteopenia. -01/17/2017. Bone density scan. Osteopenia left neck of the femur and right neck of the femur with a T score measuring -1.1 and -1.4 respectively. - Patient Self-Reported Symptoms SR Constitution: Weight loss/gain SR Gastrointestinal issues: Diarrhea - Additional ROS Additional ROS: REVIEW OF SYSTEMS: GENERAL: NO FEVER, CHILLS OR RECENT WEIGHT LOSS. HEENT: NO HEADACHES, VISION CHANGE OR DYSPHAGIA. RESPIRATORY: NO COUGH OR DYSPNEA. CARDIAC: NO CHEST PAIN, PND OR ORTHOPNEA. GI: NO NAUSEA OR VOMITING. NO ABDOMINAL PAIN. : STABLE. MUSCULOSKELETAL: NO NEW BONE PAIN. NEUROLOGIC: NEGATIVE. Results - Imaging Additional studies: Procedures Colonoscopy (07/02/14) Injection or infusion of other therapeutic or prophylactic substance (03/11/13) Home Medications and Allergies Home Medications Medication Instructions Recorded Confirmed Type glipizide 10 mg PO BIDAC #180 tab 12/18/16 10/30/17 Rx hydrochlorothiazide 25 mg PO QDAY #90 tab 12/18/16 10/30/17 Rx metformin [Glucophage XR] 1,000 mg PO BID #360 tab 12/18/16 10/30/17 Rx metoprolol tartrate [Lopressor] 100 mg PO BID #180 tab 12/18/16 10/30/17 Rx [place] 5/16 Inch units SQ HS #90 01/28/17 Rx amlodipine 10 mg PO QDAY #90 tab 04/19/17 10/30/17 Rx Glucose: Test Strips 0 str TD BID #180 str 04/30/17 10/30/17 Rx alendronate [Fosamax] 70 mg PO Q7D@0730 #12 tab 05/09/17 10/30/17 Rx calcium carbonate [Calci-Chew] 600 mg PO QDAY #0 05/21/17 10/30/17 History atorvastatin [Lipitor] 10 mg PO HS #90 tab 06/04/17 10/30/17 Rx gabapentin [Neurontin] 300 mg PO TID #180 tab 06/04/17 10/30/17 Rx cholecalciferol (vitamin D3) 2,000 unit PO QDAY #0 06/20/17 10/30/17 History escitalopram oxalate [Lexapro] 10 mg PO QDAY #90 tab 08/29/17 10/30/17 Rx sitagliptin [Januvia] 50 mg PO QDAY #90 tab 08/29/17 Rx insulin glargine [Basaglar KwikPen 5 unit SQ HS #5 syr 09/10/17 10/30/17 Rx U-100 Insulin] vit C,C-Wy-uvztk-lutein-zeaxan 1 cap PO QDAY #0 09/10/17 History [Ocuvite Lutein and Zeaxanthin] Allergies Allergy/AdvReac Type Severity Reaction Status Date / Time Anesthetics - Amide Type Allergy Intermediate PROJECTILE Unverified 09/11/17 12:26 VOMITING Anesthetics - Keke Type- Allergy Intermediate PROJECTILE Unverified 09/11/17 12:26 Parabens VOMITING [Anesthetics - Keke Type] Exam Vital signs: Last Vital Signs Temp 99.2 F 10/30/17 14:54 Pulse 57 L 10/30/17 14:54 Resp 15 10/30/17 14:54 BP 131/57 H 10/30/17 14:54 Pulse Ox 99 10/30/17 14:54 - Constitutional positive no acute distress, positive average body habitus, positive cooperative - Routine HEENT Exam Head: Present: normocephalic, atraumatic Eye: Present: EOMI, PERRL ENT: Present: mucous membranes moist, oropharynx clear - Routine Neck Exam Present: supple - Routine Chest/Breast/Axilla Exam Chest wall exam standard: Absent: tenderness, mass Breast: Present: scars, left mastectomy. Absent: tenderness, mass, swelling Axillae: Absent: lymphadenopathy, mass, tenderness - Routine Respiratory Exam Present: Clear to auscultation bilaterally. Absent: decreased breath sounds, accessory muscle use, rales, wheezes - Routine Cardiovascular Exam Present: RRR, S1, S2. Absent: murmur, S3 - Routine Abdominal Exam Present: soft, normoactive bowel sounds. Absent: tenderness, distended, guarding, organomegaly, mass - Routine Extremities Exam Absent: cyanosis, clubbing, edema - Routine Back/Spine Exam Back/Spine: Present: full ROM - Routine Skin Exam Present: intact. Absent: cyanosis, erythema, petechiae, jaundice, rash, ecchymosis - Routine Neurological Exam Present: alert, oriented X3, moving all extremities, normal speech - Routine Psychiatric Exam Present: normal affect, normal thought process, cooperative, good insight, good judgment
--- NOTE | 2017-10-30 16:46 | P.PNONC_ITS ---
Assessment and Plan - Time Spent with Patient IMPRESSION: 1. Abnormal findings on recent breast ultrasound. MRI right breast October 29, 2017 report pending. 2. Stage IIB (pT3, N0, M0) carcinoma the left breast diagnosed September 12, 2016 with punch biopsy at edge of left nipple. Invasive ductal carcinoma, low-grade 4/9, mitotic rate 1, ER/TX positive, HER2 negative. Left breast mastectomy November 08, 2016. Tried letrozole, exemestane and finely tamoxifen but could not tolerate endocrine therapy. 3. History of carcinoma the left breast, multifocal in 1993, biopsied 1993 treated with lumpectomy, radiation therapy and 5 years of adjuvant tamoxifen. 4. Diabetes mellitus type 2 5. BRCA 1, 2 gene mutation negative. 6. Osteopenia. 7. Hypertension. I reviewed recent ultrasound reports with her and her today. Her MRI report is still pending. No concerning findings on examination. She will call back in the next 1-2 days for the MRI results. I reviewed the potential risk for false positive results given the high sensitivity of breast MRI screening. Advised her that follow-up targeted right breast ultrasound may be recommended pending MRI results. Offered reassurance and encouragement to her today. We will need to await the final report and subsequent diagnostic imaging before making any necessary and relevant treatment plan. If the MRI results are reassuring then we will coordinate follow-up surveillance monitoring. I would recommend a return appointment here in 4 months and at that time, if stable consider 6 month visits. She reaffirms her previous decision to forego adjuvant endocrine therapy at this time. PLAN: 1. Breast MRI report pending. 2. Further imaging including targeted right breast ultrasound if indicated based on results. 3. Continue self monitoring, self examination and call back as needed. 4. Calcium, vitamin-D weight-bearing exercise program. 5. Follow up with other providers as planned. 6. Return appointment with me in 4 months. 7. Anticipate a right breast ultrasound in 6 months then annual for screening. 8. Consider repeat breast MRI in 1 year pending results. DICTATED BY BULL LYNCH MD MEDICAL ONCOLOGY AND HEMATOLOGY PN -Subjective Interval history: MEDICAL ONCOLOGY/HEMATOLOGY PROGRESS NOTE DATE OF SERVICE: OCTOBER 30, 2017 PATIENT NAME: Lois Barakat DATE OF : 1945 PCP: Yoli Mejia MD IDENTIFICATION: Ms. Barakat is a 71-year-old woman with history of recurrent left -sided breast cancer who returns in follow-up today to review MRI and recent breast ultrasound results. INTERVAL HISTORY: He returns today accompanied by her . Most recent visit here with Dr. Hernandez on August 01, 2017 and with Yamila BELTRE on September 10, 2017. Recent imaging with mammogram September 03, 2017 showed 2 areas of density in the right breast. She returned for right breast ultrasound on September 19, 2017 which showed suspicious findings of an irregular mass in the right breast at 12 o'clock anterior depth. Also 3 mm oval complex cyst in the right breast at 10 o'clock anterior depth is suspicious. She returned for ultrasound guided biopsy on September 27, 2017 however findings at that time were just of a simple cyst at 9:30 with no additional suspicious findings 2 targeted for a biopsy. Dr Gomes all recommended deferring the biopsy in scheduling her for breast MRI. She had the MRI yesterday but the report is not yet available. She otherwise feels fine. She is not able to palpate anything different on self exam. No new bone pain, chest wall swelling or palpable lumps in the chest wall or axillary region. Appetite and energy level are stable. No cough , dyspnea, nausea or abdominal pain. She previously tried adjuvant endocrine therapy but could not tolerate it, initially with letrozole then exemestane and most recently tamoxifen. PAST ONCOLOGY HISTORY: Past Medical History The patient's past medical history is significant for: 1) Left Breast Cancer: ipsilateral recurrence. Stage IIB (pT3,N0,M0). Diagnosis/breast surgeries: -09/12/2016. Left-sided 6 mm punch biopsy at the edge of the nipple.. Pathology confirming invasive ductal carcinoma. Invasive neoplasm involving the dermis and focally involving the epidermis. Low-grade with a Cofield score of 4 of 9. Mitotic rate was 1. No angiolymphatic invasion was identified. Tumor focally invades epidermis but not in a pagetoid pattern. Immunostains for ER TX positive at 100% and 100% respectively HER-2 1+. -11/08/2016: Left breast total mastectomy. Pathology confirming an invasive mammary carcinoma measuring 85 mm in greatest depth. Irina histological score of 1 with a mitotic rate of 1. Lesion invades into the epidermis focally without skin ulceration. Nipple epidermis not involved. Posterior margin greater than 10 mm. 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 Margins from DCIS rate of than 10 mm. One intramammary lymph node identified negative for disease. Final pathological stage IIB (pTIII PN0). Clinical staging workup: -07/16/2016 Bilateral screening mammogram: Breast tissue noted to be heterogeneously dense. No significant masses calcifications or other findings seen in either breast. No significant interval change from prior mammogram dated 04/11/2015.- 05/21/2016 L-spine without contrast. Indication was lower back pain. Diffuse osteopenia seen. Posterior spinal fixation with paraspinal esmer and pedicle screws seen from levels L2-S1. Bilateral sacroiliac screws also noted. Heart were grossly intact. Mild progression of bilateral L1-L2 bony foraminal stenosis. Otherwise grossly unchanged from 11/22/2015 scan. -10/11/2016: CT neck chest abdomen pelvis with contrast. Only abnormality were several indeterminate hypodense hepatic lesions. -10/11/2016: Whole body bone scan. No evidence of metastatic bone disease. -10/18/2016: MRI of the liver. 4 discrete minimally complex cysts identified all subcentimeter in size. Breast Cancer Risk Assessment: -03/31/2012. [facility] This was negative for mutation on BRCA 1/BRCA2 sequencing as well as BRCA1 5-site rearrangement panel. Prognostic workup: -5 and 10 year OS based on [email or web address]: 86 and 67% -11/15/2016. Oncotype DX. Her current score equal to 12. 10 year risk of distant recurrence after 5 years of tamoxifen = 8%. -01/17/2017. Echocardiogram. Ejection fraction 70 is 75%. Mild aortic regurg. Left ventricle normal in size. Radiation/Adjuvant therapy: -March 2017. Radiation Oncology Consult: Radiation contraindicated given her previous exposure. -March 2017-May 2017: Letrozole -June 2017 - Present: Exemestane 1 mg daily. Patient not interested in pursuing further tamoxifen. 2) Multifocal left-sided breast cancer. Diagnosis in 1993. Patient is status incisional biopsy on 11/17/1993 at which time 2 biopsies were performed. The first taken from the left breast. Pathology confirming a 12 x 11 mm infiltrating ductal carcinoma well differentiated. The second sample was an excisional procedure which was more cephalad, slightly towards the axillary tail. Pathology confirming a well-differentiated infiltrating ductal carcinoma measuring 7 mm focally extending to the inked margin. Patient subsequently underwent lumpectomy with complete node dissection on 12/17/1993. No pathology available. Patient underwent radiation therapy followed by tamoxifen ?5 years. Patient has residual numbness involving the proximal left arm. Patient did notice intermittent waves of depression while on Tamoxifen. Patient was subsequently placed on an SSRI during the entire time she was on tamoxifen. 3) Insulin-dependent diabetes: Diagnosed on 2005. Started Lantus on July 2016. Hemoglobin A1c on 06/14/2016 at 7.0. Patient has neuropathy currently on gabapentin. 4) Hypertension. 5) osteopenia. -01/17/2017. Bone density scan. Osteopenia left neck of the femur and right neck of the femur with a T score measuring -1.1 and -1.4 respectively. - Patient Self-Reported Symptoms SR Constitution: Weight loss/gain SR Gastrointestinal issues: Diarrhea - Additional ROS Additional ROS: REVIEW OF SYSTEMS: GENERAL: NO FEVER, CHILLS OR RECENT WEIGHT LOSS. HEENT: NO HEADACHES, VISION CHANGE OR DYSPHAGIA. RESPIRATORY: NO COUGH OR DYSPNEA. CARDIAC: NO CHEST PAIN, PND OR ORTHOPNEA. GI: NO NAUSEA OR VOMITING. NO ABDOMINAL PAIN. : STABLE. MUSCULOSKELETAL: NO NEW BONE PAIN. NEUROLOGIC: NEGATIVE. Results - Imaging Additional studies: Procedures Colonoscopy (07/02/14) Injection or infusion of other therapeutic or prophylactic substance (03/11/13) Home Medications and Allergies Home Medications Medication Instructions Recorded Confirmed Type glipizide 10 mg PO BIDAC #180 tab 12/18/16 10/30/17 Rx hydrochlorothiazide 25 mg PO QDAY #90 tab 12/18/16 10/30/17 Rx metformin [Glucophage XR] 1,000 mg PO BID #360 tab 12/18/16 10/30/17 Rx metoprolol tartrate [Lopressor] 100 mg PO BID #180 tab 12/18/16 10/30/17 Rx [place] 5/16 Inch units SQ HS #90 01/28/17 Rx amlodipine 10 mg PO QDAY #90 tab 04/19/17 10/30/17 Rx Glucose: Test Strips 0 str TD BID #180 str 04/30/17 10/30/17 Rx alendronate [Fosamax] 70 mg PO Q7D@0730 #12 tab 05/09/17 10/30/17 Rx calcium carbonate [Calci-Chew] 600 mg PO QDAY #0 05/21/17 10/30/17 History atorvastatin [Lipitor] 10 mg PO HS #90 tab 06/04/17 10/30/17 Rx gabapentin [Neurontin] 300 mg PO TID #180 tab 06/04/17 10/30/17 Rx cholecalciferol (vitamin D3) 2,000 unit PO QDAY #0 06/20/17 10/30/17 History escitalopram oxalate [Lexapro] 10 mg PO QDAY #90 tab 08/29/17 10/30/17 Rx sitagliptin [Januvia] 50 mg PO QDAY #90 tab 08/29/17 Rx insulin glargine [Basaglar KwikPen 5 unit SQ HS #5 syr 09/10/17 10/30/17 Rx U-100 Insulin] vit C,N-Iu-qdwer-lutein-zeaxan 1 cap PO QDAY #0 09/10/17 History [Ocuvite Lutein and Zeaxanthin] Allergies Allergy/AdvReac Type Severity Reaction Status Date / Time Anesthetics - Amide Type Allergy Intermediate PROJECTILE Unverified 09/11/17 12: 26 VOMITING Anesthetics - Keke Type- Allergy Intermediate PROJECTILE Unverified 09/11/17 12 :26 Parabens VOMITING [Anesthetics - Keke Type] Exam Vital signs: Last Vital Signs Temp 99.2 F 10/30/17 14:54 Pulse 57 L 10/30/17 14:54 Resp 15 10/30/17 14:54 BP 131/57 H 10/30/17 14:54 Pulse Ox 99 10/30/17 14:54 - Constitutional positive no acute distress, positive average body habitus, positive cooperative - Routine HEENT Exam Head: Present: normocephalic, atraumatic Eye: Present: EOMI, PERRL ENT: Present: mucous membranes moist, oropharynx clear - Routine Neck Exam Present: supple - Routine Chest/Breast/Axilla Exam Chest wall exam standard: Absent: tenderness, mass Breast: Present: scars, left mastectomy. Absent: tenderness, mass, swelling Axillae: Absent: lymphadenopathy, mass, tenderness - Routine Respiratory Exam Present: Clear to auscultation bilaterally. Absent: decreased breath sounds, accessory muscle use, rales, wheezes - Routine Cardiovascular Exam Present: RRR, S1, S2. Absent: murmur, S3 - Routine Abdominal Exam Present: soft, normoactive bowel sounds. Absent: tenderness, distended, guarding, organomegaly, mass - Routine Extremities Exam Absent: cyanosis, clubbing, edema - Routine Back/Spine Exam Back/Spine: Present: full ROM - Routine Skin Exam Present: intact. Absent: cyanosis, erythema, petechiae, jaundice, rash, ecchymosis - Routine Neurological Exam Present: alert, oriented X3, moving all extremities, normal speech - Routine Psychiatric Exam Present: normal affect, normal thought process, cooperative, good insight, good judgment
[2018-03-24 15:29] VITALS: BP 120/80; PULSE 67; RESP 18; TEMP 36.8; O2SAT 99
[2018-03-24] MEDS: INFLUENZA HD VACCINE 0.5 ML SYRINGE IM (15:40)
--- NOTE | 2018-03-24 15:40 | ONC.APRN.PN ---
PN -Subjective Interval history: MEDICAL ONCOLOGY/HEMATOLOGY PROGRESS NOTE DATE OF SERVICE: March 24 2018 PATIENT NAME: Lois Barakat DATE OF : 1945 PCP: Will establish with Dr Roy IDENTIFICATION: Ms. Barakat is a 71-year-old woman with history of recurrent left-sided breast cancer who presents today for urgent same day visit reporting progressively worsening left chest pain. INTERVAL HISTORY: He returns today accompanied by her . Most recent visit here with Dr. Fisher 10/30/2017. Recent imaging with mammogram September 03, 2017 showed 2 areas of density in the right breast. She returned for right breast ultrasound on September 19, 2017 which showed suspicious findings of an irregular mass in the right breast at 12 o'clock anterior depth. Also 3 mm oval complex cyst in the right breast at 10 o'clock anterior depth is suspicious. She returned for ultrasound guided biopsy on September 27, 2017 however findings at that time were just of a simple cyst at 9:30 with no additional suspicious findings 2 targeted for a biopsy. Dr Gomes recommended deferring the biopsy in scheduling her for breast MRI. She had the MRI which was unremarkable. Pt then presented to ED 02/28/2018 with a CC of severe low back pain. Incidentally CT scan dated February 28, 2018 did identify a fluid collection anterior left chest wall at left mastectomy site most likely representing a seroma versus infected fluid collection. It was recommended patient be evaluated by wound care and hyperbaric chamber however due to patient's chronic back pain she states she would not be able to lie in the hyperbaric chamber therefore did not visit with wound care. She states her left chest wall has gotten progressively more painful. Also seems to be getting ?tighter?. She states it feels a bit warm and some days it looks ?red?. No open areas. No drainage. No fever or chills. No malaise. States this does seem to come and go some days are worse than others. She is hopeful there might be some sort of intervention. Patient iscurrently under the care of Dr Yoder for back pain, plan is for steroid injections within the next week or so. PAST ONCOLOGY HISTORY: Past Medical History The patient's past medical history is significant for: 1) Left Breast Cancer: ipsilateral recurrence. Stage IIB (pT3,N0,M0). Diagnosis/breast surgeries: -09/12/2016. Left-sided 6 mm punch biopsy at the edge of the nipple.. Pathology confirming invasive ductal carcinoma. Invasive neoplasm involving the dermis and focally involving the epidermis. Low-grade with a Irina score of 4 of 9. Mitotic rate was 1. No angiolymphatic invasion was identified. Tumor focally invades epidermis but not in a pagetoid pattern. Immunostains for ER DC positive at 100% and 100% respectively HER-2 1+. -11/08/2016: Left breast total mastectomy. Pathology confirming an invasive mammary carcinoma measuring 85 mm in greatest depth. Irina histological score of 1 with a mitotic rate of 1. Lesion invades into the epidermis focally without skin ulceration. Nipple epidermis not involved. Posterior margin greater than 10 mm. 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 Margins from DCIS rate of than 10 mm. One intramammary lymph node identified negative for disease. Final pathological stage IIB (pTIII PN0). Clinical staging workup: -07/16/2016 Bilateral screening mammogram: Breast tissue noted to be heterogeneously dense. No significant masses calcifications or other findings seen in either breast. No significant interval change from prior mammogram dated 04/11/2015.- 05/21/2016 L-spine without contrast. Indication was lower back pain. Diffuse osteopenia seen. Posterior spinal fixation with paraspinal esmer and pedicle screws seen from levels L2-S1. Bilateral sacroiliac screws also noted. Heart were grossly intact. Mild progression of bilateral L1-L2 bony foraminal stenosis. Otherwise grossly unchanged from 11/22/2015 scan. -10/11/2016: CT neck chest abdomen pelvis with contrast. Only abnormality were several indeterminate hypodense hepatic lesions. -10/11/2016: Whole body bone scan. No evidence of metastatic bone disease. -10/18/2016: MRI of the liver. 4 discrete minimally complex cysts identified all subcentimeter in size. Breast Cancer Risk Assessment: -03/31/2012. BRCA genetic testing [facility]. This was negative for mutation on BRCA 1/BRCA2 sequencing as well as BRCA1 5-site rearrangement panel. Prognostic workup: -5 and 10 year OS based on www[facility]dict[facility]: 86 and 67% -11/15/2016. Oncotype DX. Her current score equal to 12. 10 year risk of distant recurrence after 5 years of tamoxifen = 8%. -01/17/2017. Echocardiogram. Ejection fraction 70 is 75%. Mild aortic regurg. Left ventricle normal in size. Radiation/Adjuvant therapy: -March 2017. Radiation Oncology Consult: Radiation contraindicated given her previous exposure. -March 2017-May 2017: Letrozole -June 2017 - Present: Exemestane 1 mg daily. Patient not interested in pursuing further tamoxifen. 2) Multifocal left-sided breast cancer. Diagnosis in 1993. Patient is status incisional biopsy on 11/17/1993 at which time 2 biopsies were performed. The first taken from the left breast. Pathology confirming a 12 x 11 mm infiltrating ductal carcinoma well differentiated. The second sample was an excisional procedure which was more cephalad, slightly towards the axillary tail. Pathology confirming a well-differentiated infiltrating ductal carcinoma measuring 7 mm focally extending to the inked margin. Patient subsequently underwent lumpectomy with complete node dissection on 12/17/1993. No pathology available. Patient underwent radiation therapy followed by tamoxifen ?5 years. Patient has residual numbness involving the proximal left arm. Patient did notice intermittent waves of depression while on Tamoxifen. Patient was subsequently placed on an SSRI during the entire time she was on tamoxifen. 3) Insulin-dependent diabetes: Diagnosed on 2005. Started Lantus on July 2016. Hemoglobin A1c on 06/14/2016 at 7.0. Patient has neuropathy currently on gabapentin. 4) Hypertension. 5) osteopenia. -01/17/2017. Bone density scan. Osteopenia left neck of the femur and right neck of the femur with a T score measuring -1.1 and -1.4 respectively. - Patient Self-Reported Symptoms SR Constitution: Weight loss/gain SR Gastrointestinal issues: Diarrhea Home Medications and Allergies Home Medications Medication Instructions Recorded Confirmed Type amlodipine 10 mg PO QDAY #90 tab 04/19/17 02/28/18 Rx Glucose: Test Strips 0 str TD BID #180 str 04/30/17 02/28/18 Rx calcium carbonate [Calci-Chew] 600 mg PO QDAY #0 05/21/17 02/28/18 History atorvastatin [Lipitor] 10 mg PO HS #90 tab 06/04/17 02/28/18 Rx cholecalciferol (vitamin D3) 2,000 unit PO QDAY #0 06/20/17 02/28/18 History escitalopram oxalate [Lexapro] 10 mg PO QDAY #90 tab 08/29/17 02/28/18 Rx insulin glargine [Basaglar KwikPen 5 unit SQ HS #5 syr /03/2002/28/18 Rx U-100 Insulin] metoprolol tartrate 100 mg tablet 100 mg PO BID #180 tab 12/02/17 02/28/18 Rx sitagliptin 50 mg tablet 50 mg PO QDAY #90 tab 12/02/17 02/28/18 Rx hydrochlorothiazide 25 mg tablet 25 mg PO QDAY #90 tab 12/25/17 02/28/18 Rx CoQ-10 1 cap PO DAILY 02/28/18 02/28/18 History [place] 5 Inch 1 units SQ HS 02/28/18 02/28/18 History alendronate [Fosamax] 70 mg PO SA 02/28/18 02/28/18 History aspirin 81 mg PO BEDTIME 02/28/18 02/28/18 History cyanocobalamin (vitamin B-12) 1,000 mcg PO DAILY 02/28/18 02/28/18 History [Vitamin B-12] gabapentin [Neurontin] 300 mg PO BID 02/28/18 02/28/18 History glipizide 20 mg PO BIDAC 02/28/18 02/28/18 History losartan 100 mg PO QPM 02/28/18 02/28/18 History metformin ER 500 mg 3 tab PO BID tab 02/28/18 02/28/18 History tablet,extended release 24 hr vit C,N-Mt-eanpk-lutein-zeaxan 1 cap PO BID 02/28/18 02/28/18 History [PreserVision AREDS 2] zolpidem 10 mg tablet 10 mg PO BEDTIME PRN tab 02/28/18 02/28/18 History pen needle, diabetic 31 gauge x #100 each 03/03/18 Rx 5/16 Glucophage 1,500 mg DAILY 03/24/18 03/24/18 History Allergies Allergy/AdvReac Type Severity Reaction Status Date / Time Anesthetics - Amide Type Allergy Intermediate PROJECTILE Verified 03/19/18 14:09 VOMITING Anesthetics - Keke Type- Allergy Intermediate PROJECTILE Verified 03/19/18 14:09 Parabens VOMITING [Anesthetics - Keke Type] Exam - Constitutional positive no acute distress - Routine Neck Exam Present: supple. Absent: lymphadenopathy - Routine Chest/Breast/Axilla Exam Chest wall exam standard: Present: tenderness. Absent: mass Breast: Present: left mastectomy Axillae: Absent: lymphadenopathy, mass, tenderness Comments: left mastectomy/radiation site very firm, tight skin with little elasticity. TTP. A bit warm over left chest wall with mild erythema. No open areas. No drainage P - Routine Respiratory Exam Present: Clear to auscultation bilaterally. Absent: rales, rhonchi, wheezes - Routine Cardiovascular Exam Present: RRR, S1, S2. Absent: murmur, gallop, rubs, JVD - Routine Abdominal Exam Present: soft, normoactive bowel sounds. Absent: tenderness, distended, organomegaly, mass - Routine Extremities Exam Absent: edema, calf tenderness - Routine Skin Exam Present: intact, normal turgor. Absent: rash - Routine Neurological Exam Present: alert, oriented X3 - Routine Psychiatric Exam Present: normal affect Results - Imaging Additional studies: Procedures Colonoscopy (07/02/14) Injection or infusion of other therapeutic or prophylactic substance (03/11/13) Assessment and Plan (1) Breast cancer Current visit: No Status: Resolved Ms. Barakat is a 71-year-old woman with history of recurrent left-sided breast cancer who presents today for urgent same day visit reporting progressively worsening left chest pain. On exam today left chest wall is a bit warm with mild erythema. Skin is taught with very little if any elasticity. CBC is unremarkable, patient is afebrile. I would like for the patient to visit with our surgeons, Dr. Monzon performed her left breast mastectomy at which time they can discuss possible interventions to further evaluate and or treat the seroma. Dr Monzon is out of office for 2 weeks, Dr Vides has graciously agreed to see the patient today. Patient is very relieved. She understands having radiation to left chest wall likely contributed and may impact her options moving forward.
[2018-03-24 16:12] VITALS: BP 127/68; PULSE 62; RESP 18; TEMP 37; O2SAT 98
== END 2018-03-25 12:00 | disposition home or self-care (01) ==
PROVIDERS: Family Provider Family Medicine; PCP Family Medicine; Visit Provider Internal Medicine Hematology & Oncology
DX: C50.912 Malignant neoplasm of unspecified site of left female breast (principal); R07.89 Other chest pain; G89.18 Other acute postprocedural pain; Z23 Encounter for immunization; Z17.0 Estrogen receptor positive status [ER+]
CPT/HCPCS: 90471; 90662; 99213; 99214; 99215

== ENCOUNTER 2018-04-01 07:50 | Outpatient (CLI) | payer MEDICARE, OTHER, SELFPAY ==
--- NOTE | 2018-04-01 07:52 | DI.RAD.S_ITS ---
PROCEDURE: PAIN L INTERLAMINAR/CAUDAL INJ INDICATIONS: post fusion syndrome FINDINGS: Fluoroscopic spot filming was performed to verify placement of spinal needles at the L4-L5 level(s), as labeled on the films. Appropriate location(s) of the needle tip(s) was confirmed by injection of iodinated contrast. There are postsurgical changes with posterior fusion throughout the lumbar spine. IMPRESSION: Fluoroscopy for pain management. Dictated by: Cole Lam M.D. on 04/01/2018 at 17:06 Approved by: Cole Lam M.D. on 04/01/2018 at 17:07
[2018-04-01 08:11] VITALS: BP 128/56; PULSE 57; RESP 18; TEMP 36.3; O2SAT 98
[2018-04-01] MEDS: MIDAZOLAM 5 MG/5 ML VIAL IV (08:50)
[2018-04-01 08:55] VITALS: BP 145/64; PULSE 60; RESP 13; O2SAT 99
[2018-04-01 09:00] VITALS: BP 145/64; PULSE 57; RESP 16; O2SAT 97
[2018-04-01 09:11] VITALS: BP 121/95; PULSE 53; RESP 16; O2SAT 100
--- NOTE | 2018-04-01 09:12 | P.PCN_ITS ---
Procedures Date/Time Date of procedure: 04/01/18 Time of procedure: 09:11 General Procedure description: PROVIDER: Yang Yoder DO Operative Note PREOP DIAGNOSIS 1. HNP WITH RADICULAR FEATURES, 2. MULTILEVEL CENTRAL STENOSIS, POST OP DIAGNOSIS 1. HNP WITH RADICULAR FEATURES, 2. MULTILEVEL CENTRAL STENOSIS PROCEDURES 1. FLUORSCOPICALLY GUIDED CONTRAST CONTROLLED INTERLAMINAR EPIDURAL STEROID INJECTION -L4/5 PHYSICIAN: Yang Yoder DO INDICATIONs: Lois is referred by Dr. Roy treatment of Bilateral Foraminal Stenosis R>L LE symptoms. FINDINGS Multilevel Central Spinal Stenosis with Nerve Root Compression DESCRIPTION OF PROCEDURE Fluoroscopically guided, contrast-controlled L4/5 translaminar epidural steroid injection. Following denial of allergy and review of potential side effects and complications, including, but not necessarily limited to, infection, allergic reaction, local tissue breakdown, temporary as well as permanent nerve injury, paralysis, stroke and possible , the patient indicated that the patient understood and agreed to proceed. An informed consent document was signed by the patient, witnessed by a nurse, and placed in the patient's chart. Additionally, other treatment options including modalities, medications, and physical therapy were reviewed with the patient. After review of previous anaesthesic history and IV conscious sedation the patient was deemed safe to proceed with todays procedure with IV conscious sedation as ASA class II designation. Safety time-out was performed to confirm patient ID, procedure to be performed and site of procedure. IV sedation was accomplished with a combination of 3mg was administered by the RN after DO order , titrated to patient comfort during the course of the procedure while the patient remained responsive to all verbal commands In the prone position, following sterile prep and drape of the lumbar region, the L4/5 translaminar space was identified fluoroscopically. The skin was anesthetized via a 25-gauge, 1.5-inch needle with 1% lidocaine solution. At this point, a 22-gauge short bevel spinal needle was atraumatically introduced and advanced under fluoroscopic guidance into the region of the L4/5 translaminar space. Depth was confirmed on lateral view. Radiological data, including multiple fluoroscopic views of the lumbar spine, reveal a spinal needle at the L4/5 translaminar space. Lateral views then show placement of the needle in the epidural space. Subsequent views show contrast material flowing superiorly and inferiorly in the epidural space. No vascular or intrathecal uptake is observed. At this point, using loss of resistance technique with saline and air, the epidural space was entered. This was confirmed following negative aspiration with injection of approximately 1.5 cc of Isovue 200, showing excellent epidural flow without vascular or intrathecal uptake. At this point, 1 cc of 1 % lidocaine solution combined with 3 cc or 20 mg of dexamethasone and 80mg Depo medrol was injected without incident. The patient tolerated the procedure well without signs or symptoms of complications prior to transfer to the recovery area continued monitoring without incident. The patient was then transferred to the recovery area where they were observed for an appropriate period of time after the injection. The patient reported a VAS score of 6 prior to the procedure and a post- procedure VAS of 0. Total Fluoroscopy Time: 11.8 seconds, 8.99 mGy Total Conscious Sedation Time: 24min POST OP INSTRUCTIONS The patient was provided a Pain Log to continue to record their response to the target-specific procedure prior to follow-up visit with their referring physician. Additionally, specific post-injection care instructions and a contact number to our office were provided if concerns arise regarding possible complications associated with the procedure are suspected. Yang Yoder DO Complications: none
--- NOTE | 2018-04-01 09:14 | PC.NURSE ---
ACCEPTED CARE OF PT FROM [facility], PT ARRIVED IN STABLE CONDITION
[2018-04-01 09:16] VITALS: BP 132/53; PULSE 51; RESP 18; O2SAT 97
--- NOTE | 2018-04-01 09:17 | PC.NURSE ---
0904 pt finished procedure, got her off table and into wheelchair to take to pre procedure room. Handoff to Esthela SWENSON, pt stable and able to maintain stable vs, airway for transport.
[2018-04-01] MEDS: IOPAMIDOL 15 ML VIAL 3 ML INJ (09:18)
[2018-04-01] MEDS: BUPIVACAINE 0.25% (PF) VIAL 2 ML INJ (09:19)
[2018-04-01] MEDS: DEXAMETHASONE 10 MG/ML VIAL 20 MG INJ (09:20)
[2018-04-01] MEDS: methylPREDNISolone acetate 80 MG/ML VIAL INJ (09:20)
[2018-04-01 09:21] VITALS: BP 130/55; PULSE 51; RESP 18; O2SAT 97
== END 2018-04-01 10:56 | disposition home or self-care (01) ==
LOC: RAD 07:52
PROVIDERS: Family Provider Family Medicine; PCP Family Medicine; Visit Provider Physical Medicine & Rehabilitation
DX: M51.16 Intervertebral disc disorders with radiculopathy, lumbar region (principal); M48.061 Spinal stenosis, lumbar region without neurogenic claudication
CPT/HCPCS: 62323; 99152; J1040; J1100; J2250

== ENCOUNTER → 2018-05-02 12:08 | Outpatient (CLI) | payer MEDICARE, OTHER, SELFPAY ==
[2018-05-02 13:04] LABS: BUN Creatinine Ratio 27.3 (6-22); Blood Urea Nitrogen 30 mg/dL (7-17); Carbon Dioxide 29 mmol/L (22-32); Chloride 101 mmol/L (98-107); Estimated Glomerular Filt Rate 48.8 mL/min (>60); Glucose 172 mg/dL (80-110); HEMOLYSIS < 15 (0-50); Potassium 3.8 mmol/L (3.4-5.1); Sodium 143 mmol/L (137-145)
== END ==
PROVIDERS: PCP Family Medicine; Visit Provider Family Medicine
DX: E11.9 Type 2 diabetes mellitus without complications (principal); I10 Essential (primary) hypertension; R53.83 Other fatigue
CPT/HCPCS: 36415; 80048

== ENCOUNTER 2018-05-21 09:30 | Outpatient (CLI) | payer MEDICARE, OTHER, SELFPAY ==
[2018-05-21] VITALS (10 sets, daily range): BP systolic 125–149; BP diastolic 57–102; PULSE 54–72; RESP 16–18; TEMP 36.2; O2SAT 94–100
--- NOTE | 2018-05-21 09:31 | DI.RAD.S_ITS ---
PROCEDURE: PAIN L INTERLAMINAR/CAUDAL INJ INDICATIONS: RADICULOPATHY FINDINGS: Fluoroscopic spot filming was performed to verify placement of spinal needles at the caudal aspect of the spinal canal as labeled on the films. Appropriate location(s) of the needle tip(s) was confirmed by injection of iodinated contrast. Dictated by: Duran Olivas M.D. on 05/22/2018 at 11:16 Approved by: Duran Olivas M.D. on 05/22/2018 at 11:20
[2018-05-21] MEDS: MIDAZOLAM 5 MG/5 ML VIAL IV (10:23)
[2018-05-21] MEDS: methylPREDNISolone acetate 80 MG/ML VIAL INJ (10:26)
[2018-05-21] MEDS: IOPAMIDOL 15 ML VIAL 3 ML INJ (10:26)
[2018-05-21] MEDS: DEXAMETHASONE 10 MG/ML VIAL 20 MG INJ (10:26)
[2018-05-21] MEDS: BUPIVACAINE 0.25% (PF) VIAL 2 ML INJ (10:26)
--- NOTE | 2018-05-21 10:40 | PM.PROC.1 ---
Procedures Date/Time Date of procedure: 05/21/18 Time of procedure: 10:40 General Procedure description: PREOP DIAGNOSIS 1. MULTILEVEL SPINAL STENOSIS, 2. POST FUSION SYNDROME, POST OP DIAGNOSIS 1. MULTILEVEL SPINAL STENOSIS, 2. POST FUSION SYNDROME, PROCEDURES 1. FLUOROSCOPICALLY GUIDED CONTRAST CONTROLLED CAUDAL EPIDURAL STEROID INJECTION, SURGEON: Yang Yoder, DO INDICATIONS Lois is referred by Dr. Roy for treatment of Multilevel Stenosis status post lumbar fusion FINDINGS Multilevel Stenosis S/p Lami/Fusion Syndrome DESCRIPTION OF PROCEDURE Fluoroscopically guided, contrast controlled caudal epidural steroid injection with Conscious Sedation Following denial of allergy and review of potential side effects and complications, including but not necessarily limited to infection, allergic reaction, local tissue breakdown, temporary or permanent nerve injury, stroke, paralysis, and possible , the patient indicated that they understood and agreed to proceed. An informed consent document was signed by the patient, witnessed by a nurse, and placed in the patient's chart. Additionally, other treatment options including medications, modalities, and physical therapy were reviewed with the patient. After review of previous anaesthesic history and IV conscious sedation the patient was deemed safe to proceed with todays procedure with IV conscious sedation as ASA class II designation. Safety time-out was performed to confirm patient ID, procedure to be performed and site of procedure. IV sedation was accomplished with a combination of 3mg of Versed and 50mcg of Fentanyl administered by the RN after DO order, titrated to patient comfort during the course of the procedure while the patient remained responsive to all verbal commands In the prone position, following sterile prep and drape of the lumbar region, the sacral hiatus was identified fluoroscopically. The skin was anesthetized via a 25-gauge, 1.5-inch needle with approximately 2 cc of 1% lidocaine solution. At this point, a 25-gauge, 2.5-inch needle was atraumatically introduced and advanced under fluoroscopic guidance to the corresponding sacral hiatus and entering the sacral canal. Following negative aspiration, injection of approximately 0.3 cc of Isovue 300 confirmed interarticular placement without vascular uptake. Radiological data, including multiple fluoroscopic views of the lumbosacral spine, reveal a spinal needle in the sacral canal through the sacral hiatus. Subsequent views show flow of contrast material superiorly and inferiorly in the sacral canal without vascular or intrathecal uptake. At this point, a total of 6 cc including 3 cc or 18mg of betamethasone and 3 cc of 1% lidocaine solution was injected without complication. The patient tolerated the procedure well without signs or symptoms of complications prior to transfer to the recovery area continued monitoring without incident. The patient was then transferred to the recovery area where they were observed for an appropriate period of time after the injection. The patient reported a VAS score of 10 prior to the procedure and a post-procedure VAS of 2. Fluorscopy Time: 16.7sec Total Conscious Sedation Time: 24min POST OP INSTRUCTIONS The patient was provided a Pain Log to continue to record their response to the target-specific procedure prior to their follow-up visit with the referring physician. Additionally, specific post-injection care instructions and a contact number to our office were provided if concerns arise regarding possible complications associated with the procedure are suspected. Yang Yoder DO Complications: none
--- NOTE | 2018-05-21 10:42 | PC.NURSE ---
assisted pt off table and transporting to post proc area in stable condition
--- NOTE | 2018-05-21 11:45 | PC.NURSE ---
pt received from post procedure via wheelchair from Esthela SWENSON for continued monitoring. pt able to move from W/C to chair with stand by assist.
== END 2018-05-21 11:26 ==
LOC: RAD 09:31
PROVIDERS: PCP Family Medicine; Visit Provider Physical Medicine & Rehabilitation
DX: M48.061 Spinal stenosis, lumbar region without neurogenic claudication (principal); M54.17 Radiculopathy, lumbosacral region; M43.8X9 Other specified deforming dorsopathies, site unspecified; Z98.1 Arthrodesis status
CPT/HCPCS: 62323; 99152; J1040; J1100; J2250

== ENCOUNTER → 2018-09-08 11:52 | Outpatient (CLI) | payer MEDICARE, OTHER, SELFPAY ==
--- NOTE | 2018-09-08 11:58 | DI.MRI.S_ITS ---
BREAST MRI OF BOTH BREASTS: 09/08/2018 CLINICAL: Breast cancer. PROCEDURE: MR BREAST BI WO/W CON INDICATIONS: DIAGNOSTIC TECHNIQUE: The patient was placed prone in a dedicated breast imaging coil. Precontrast axial STIR and 3D FLASH without fat saturation sequences were obtained. Both before and after bolus injection of contrast, sequential 1-minute axial 3D FLASH with fat saturation sequences for 3 time points, with subtraction images and maximum intensity projections (MIP's) generated. Delayed sagittal FLASH images with fat saturation were also obtained. Computer-aided detection, including computer algorithm analysis of MRI image data for lesion detection and characterization, pharmacokinetic analysis, with further physician review for interpretation, was performed. COMPARISON: [facility], MR, BILATERAL BREAST W FINDINGS: Image quality: Excellent. There is moderate background parenchymal enhancement. Right breast: A focal enhancing nodule which may represent an axillary lymph node with a thickened cortex is present within the upper-outer region of the right breast and measures 1.1 x 0.8 cm in the axial plane (series 5, image 132). This measured 0.5 x 0.5 cm in diameter on the comparison MRI dated 10/29/17 and the comparison MRI dated 10/17/16. This demonstrates entirely rapid initial rise on the kinetic analysis and a combination of persistent and washout kinetics on the delayed phase study. Slightly inferior to this enhancing region is a 0.7 x 0.7 cm nodule which is unchanged in size when compared with the study dated 10/29/17 (series 5, image 126), and may represent an adjacent subcentimeter axillary node. More inferiorly, there are multiple right axillary lymph nodes which demonstrate a normal morphology. As described on the comparison study dated 10/29/17, there is a subtle region of focal enhancement along the posterior margin of the fibroglandular tissue within the right breast, 12:00, posterior depth. This region is unchanged when compared with the prior study and is subthreshold for kinetic analysis. Left breast: Patient is status post left mastectomy. Trabecular thickening of the subcutaneous tissue and thickening of the skin suggests radiation changes. No suspicious enhancing mass lesions or areas of enhancement. Miscellaneous: Visualized portions of the upper abdomen, mediastinum, and lungs are unremarkable. No intramammary adenopathy. IMPRESSION: INCOMPLETE: NEEDS ADDITIONAL IMAGING EVALUATION 1. Enhancing soft tissue mass within the upper-outer quadrant of the right breast which may represent an abnormal axillary lymph node and is increased in size when compared with the study from 10/29/17. A second look ultrasound is recommended. If this lesion is amenable to biopsy by ultrasound, ultrasound guided biopsy is recommended. If this lesion is not visualized by ultrasound, MRI guided biopsy should be considered. Electronically Signed By: Bing Gomes M.D. lk/:09/09/2018 08:07:27 Entry: - 09/09/2018 08:07:27 ACR BI-RADS Category 0: Incomplete [id number]
[2018-09-08 12:18] LABS: Add Manual Diff / Slide Review NO; Basophils Absolute Auto 100 /uL (0-100); Basophils Percent Auto 1.1 % (0-2); Eosinophils Absolute Auto 200 /uL (0-450); Hematocrit 37.7 % (36-46); Hemoglobin 12.4 g/dL (12.0-16.0); Lymphocytes Absolute Auto 1200 /uL (1100-4500); Lymphocytes Percent Auto 14.2 % (25-40); Mean Corpuscular Hemoglobin 28.1 PG (26-34); Mean Corpuscular Volume 85.3 fL (80-100); Monocytes Absolute Auto 600 /uL (0-900); Monocytes Percent Auto 7.7 % (3-14); Neutrophils Absolute Auto 6200 /uL (1500-7000); Platelet Count 356 X10^3/uL (150-400); Red Blood Cell Count 4.42 X10^6/uL (4.0-5.2); Red Cell Distribution Width 14.1 % (11.6-14.8); White Blood Cell Count 8.3 X10^3/uL (4.5-11.0)
[2018-09-08 12:30] LABS: Alanine Aminotransferase 23 IU/L (9-52); Albumin 4.2 g/dL (3.5-5.0); Albumin Globulin Ratio 1.5 (1.0-2.8); Alkaline Phosphatase 67 U/L (38-126); Aspartate Aminotransferase 15 IU/L (14-36); BUN Creatinine Ratio 26.4 (6-22); Bilirubin Total 0.4 mg/dL (0.2-1.3); Blood Urea Nitrogen 29 mg/dL (7-17); Calcium 9.6 mg/dL (8.4-10.2); Carbon Dioxide 28 mmol/L (22-32); Chloride 98 mmol/L (98-107); Estimated Glomerular Filt Rate 48.8 mL/min (>60); Globulin 2.8 g/dL (1.7-4.1); Glucose 201 mg/dL (80-110); HEMOLYSIS < 15 (0-50); Potassium 3.6 mmol/L (3.4-5.1); Sodium 139 mmol/L (137-145)
== END ==
PROVIDERS: PCP Family Medicine; Visit Provider Nurse Practitioner Gerontology
DX: R92.8 Other abnormal and inconclusive findings on diagnostic imaging of breast (principal); N63.11 Unspecified lump in the right breast, upper outer quadrant; C50.912 Malignant neoplasm of unspecified site of left female breast; Z90.12 Acquired absence of left breast and nipple
CPT/HCPCS: 36415; 77049; 80053; 85025; A9579

== ENCOUNTER 2019-03-03 13:07 | Outpatient (CLI) | payer MEDICARE, OTHER, SELFPAY ==
[2019-03-03] VITALS (9 sets, daily range): BP systolic 111–138; BP diastolic 42–74; PULSE 61–66; RESP 16; TEMP 37.1; O2SAT 96–99
--- NOTE | 2019-03-03 13:12 | DI.RAD.S_ITS ---
PROCEDURE: PAIN L INTERLAMINAR/CAUDAL INJ INDICATIONS: RADICULOPATHY FINDINGS: Fluoroscopic spot filming was performed to verify placement of spinal needles at the caudal/sacral level(s), as labeled on the films. Appropriate location(s) of the needle tip(s) was confirmed by injection of iodinated contrast. Dictated by: Duran Olivas M.D. on 03/03/2019 at 15:02 Approved by: Duran Olivas M.D. on 03/03/2019 at 15:03
[2019-03-03] MEDS: MIDAZOLAM 5 MG/5 ML VIAL IV (14:16)
[2019-03-03] MEDS: fentaNYL 100 MCG/2 ML INJ 50 MCG IV (14:17)
[2019-03-03] MEDS: BETAMETHASONE 30 MG/5 ML MDV 6 MG INJ (14:24)
[2019-03-03] MEDS: IOPAMIDOL 15 ML VIAL 3 ML INJ (14:24)
[2019-03-03] MEDS: BETAMETHASONE 30 MG/5 ML MDV 12 MG INJ (14:25)
[2019-03-03] MEDS: LIDOCAINE 1% 20 ML 5 ML INJ (14:30)
--- NOTE | 2019-03-03 14:34 | PC.NURSE ---
ASSISTING PT OFF TABLE AND TRANSPORTING TO POST PROC AREA IN STABLE CONDITION. CARE OF PT PASSED TO LAINEY Smith RN
--- NOTE | 2019-03-03 14:37 | PM.PROC.1 ---
Procedures Date/Time Date of procedure: 03/03/19 Time of procedure: 14:38 General Procedure description: PREOP DIAGNOSIS 1. MULTILEVEL SPINAL STENOSIS, 2. POST FUSION SYNDROME, POST OP DIAGNOSIS 1. MULTILEVEL SPINAL STENOSIS, 2. POST FUSION SYNDROME, PROCEDURES 1. FLUOROSCOPICALLY GUIDED CONTRAST CONTROLLED CAUDAL EPIDURAL STEROID INJECTION SURGEON: Yang Yoder, DO INDICATIONS Lois is referred by Dr. Roy for treatment of Multilevel Stenosis FINDINGS Multilevel Stenosis S/p Lami/Fusion Syndrome DESCRIPTION OF PROCEDURE Fluoroscopically guided, contrast controlled caudal epidural steroid injection with Conscious Sedation Following review of allergy and review of potential side effects and complications, including but not necessarily limited to infection, allergic reaction, local tissue breakdown, temporary or permanent nerve injury, stroke, paralysis, and possible , the patient indicated that they understood and agreed to proceed. An informed consent document was signed by the patient, witnessed by a nurse, and placed in the patient's chart. Additionally, other treatment options including medications, modalities, and physical therapy were reviewed with the patient. After review of previous anaesthesic history and IV conscious sedation the patient was deemed safe to proceed with todays procedure with IV conscious sedation as ASA class II designation. Safety time-out was performed to confirm patient ID, procedure to be performed and site of procedure. IV sedation was accomplished with a combination of 2mg of Versed and 50mcg of Fentanyl administered by the RN after DO order, titrated to patient comfort during the course of the procedure while the patient remained responsive to all verbal commands In the prone position, following sterile prep and drape of the lumbar region, the sacral hiatus was identified fluoroscopically. The skin was anesthetized via a 25-gauge, 1.5-inch needle with approximately 2 cc of 1% lidocaine solution. At this point, a 25-gauge, 2.5-inch needle was atraumatically introduced and advanced under fluoroscopic guidance to the corresponding sacral hiatus and entering the sacral canal. Following negative aspiration, injection of approximately 0.3 of Isovue 300 confirmed interarticular placement without vascular uptake. Radiological data, including multiple fluoroscopic views of the lumbosacral spine, reveal a spinal needle in the sacral canal through the sacral hiatus. Subsequent views show flow of contrast material superiorly and inferiorly in the sacral canal without vascular or intrathecal uptake. At this point, a total of 6cc including 3cc or 18mg of betamethasone and 3cc of 1% lidocaine solution was injected without complication. The patient tolerated the procedure well without signs or symptoms of complications prior to transfer to the recovery area continued monitoring without incident. The patient was then transferred to the recovery area where they were observed for an appropriate period of time after the injection. The patient reported a VAS score of 10 prior to the procedure and a post-procedure VAS of 2. Fluorscopy Time: 16.7sec Total Conscious Sedation Time: 24min POST OP INSTRUCTIONS The patient was provided a Pain Log to continue to record their response to the target-specific procedure prior to their follow-up visit with the referring physician. Additionally, specific post-injection care instructions and a contact number to our office were provided if concerns arise regarding possible complications associated with the procedure are suspected. Yang Yoder DO Complications: none
--- NOTE | 2019-03-03 14:46 | PC.NURSE ---
BEFORE PROCEDURE MD AND PT DECIDED TO CHANGE PROCEDURE TO A CAUDAL DARÍO. BOTH PT AND MD MADE CHANGE AND INITIALED CONSENT FORM. PT WAS A&Ox4 AND HAD NOT YET HAD ANY SEDATION MEDICATION. PT WAS ABLE TO MAKE SOUND DECISION WHEN CHANGE WAS DECIDED UPON.
--- NOTE | 2019-03-03 14:58 | PC.NURSE ---
1536 rtr vi w/c, post procedure, stable, snack provided, assume care from Esthela SWENSON.
--- NOTE | 2019-03-03 15:01 | PC.NURSE ---
edit above note, pt rtr at 2205
== END 2019-03-03 15:18 | disposition home or self-care (01) ==
PROVIDERS: PCP Family Medicine; Visit Provider Physical Medicine & Rehabilitation
DX: M54.17 Radiculopathy, lumbosacral region (principal); M48.061 Spinal stenosis, lumbar region without neurogenic claudication; M48.07 Spinal stenosis, lumbosacral region; M96.1 Postlaminectomy syndrome, not elsewhere classified; Z98.1 Arthrodesis status
CPT/HCPCS: 62323; 99152; J0702; J1100; J2250; J3010

== ENCOUNTER → 2019-03-17 08:46 | Outpatient (CLI) | payer MEDICARE, OTHER, SELFPAY ==
--- NOTE | 2019-03-17 08:47 | DI.MRI.S_ITS ---
BREAST MRI OF BOTH BREASTS- WITH CAD: 03/17/2019 CLINICAL: Nodule left breast. Comparison is made to exams dated: 11/10/2018 MRI biopsy - [facility], 09/08/2018 breast MRI, and 10/29/2017 breast MRI - [facility]. Interpretation of this MRI was correlated with available mammograms, ultrasounds, and previous MRI scans. Informed consent was obtained from the patient. 20 cc of ProHance (Gadoteridol) nonionic contrast was injected. Axial T1, T2, sagittal T1, and pre and post contrast T1 images were obtained with a dedicated breast coil. Post processing was performed including computer aided calculations of any tumor volumes and dimensions. There is mild background parenchymal enhancement in the right breast. Right breast: No discrete mass or suspicious enhancement demonstrated in the right breast. Left breast: Postsurgical changes are redemonstrated status post left mastectomy as well as postradiation changes including edema and enhancement within the surgical bed and along the left chest wall including the underlying musculature and ribs. A loculated thickwalled fluid collection within the surgical bed likely representing a seroma appears similar to the prior study. There is progressive increased enhancement compared to the prior studies. No discrete mass or masslike enhancement. Miscellaneous: The previously described right axillary lymph node with subsequent CT guided biopsy is similar in size to the prior study, measuring up to 0.7 cm in short axis. On STIR images, there is suggestion of an enlarged right axillary lymph node superiorly measuring approximately 1.0 x 2.0 cm not visualized on the prior studies. This region is not included on the post contrast sequences. There is abnormal bone marrow and periosteal enhancement of 2 right ribs anteriorly at the level of the inferior right breast. IMPRESSION: INCOMPLETE: NEEDS ADDITIONAL IMAGING EVALUATION 1. Post surgical changes redemonstrated status post left mastectomy with enhancement and edema in the surgical bed and along the underlying chest wall. Although there is progressive increased enhancement compared to the prior studies, no discrete mass or masslike component is visualized. The findings may represent post radiation changes. Recommend continued attention on followup. 2. Abnormal edema and enhancement demonstrated within 2 right anterior ribs adjacent to the inferior aspect of the right breast. The findings are suspicious for metastatic disease. The differential includes healing fractures although the appearance is atypical. Recommend correlation with clinical history and consider further evaluation with dedicated CT of the chest abdomen and pelvis. 3. Suspected enlarged superior right axillary lymph node seen on the STIR sequence is incompletely evaluated on the current study. This may also be further evaluated with a CT of the chest. 4. Previously biopsied lymph node along the axillary tail of the right breast appears similar in size to the prior study. This exam was interpreted at Station ID: [id number]. Electronically Signed By: Magan Tavares M.D. ddp/:03/17/2019 11:39:12 ACR BI-RADS Category 0: Incomplete [id number]
== END ==
PROVIDERS: PCP Family Medicine
DX: R92.8 Other abnormal and inconclusive findings on diagnostic imaging of breast (principal); N63.31 Unspecified lump in axillary tail of the right breast; Z85.3 Personal history of malignant neoplasm of breast; Z90.12 Acquired absence of left breast and nipple
CPT/HCPCS: 77049; A9579

== ENCOUNTER → 2019-04-15 08:19 | Outpatient (CLI) | payer MEDICARE, OTHER, SELFPAY ==
--- NOTE | 2019-04-15 08:21 | DI.CT.S_ITS ---
PROCEDURE: CT CHEST ABD PEL W CON INDICATIONS: possible right rib lesion by MRI TECHNIQUE: After the administration of oral and intravenous contrast, 5 mm thick sections acquired from the lung apices to the symphysis. 5 mm coronal and sagittal reformats were performed, with additional 7 mm coronal MIP reformats through the lungs. For radiation dose reduction, the following was used: automated exposure control, adjustment of mA and/or kV according to patient size. COMPARISON: [facility], MR, MR BREAST BI WO/W CON, 03/17/2019, 9:43. FINDINGS: Image quality: Excellent. CHEST: Lungs and pleura: No acute airspace opacities. A 3 mm pleural-based lung nodule present laterally in the right lower lobe is new since the prior study but nonspecific. Lungs are otherwise clear. No pleural effusions or pneumothorax. Central and peripheral airways appear patent and normal in caliber. Mediastinum: Heart size is normal. No pericardial effusion. No mediastinal or hilar adenopathy by size criteria. Thoracic aorta and central pulmonary arteries are normal in size. Esophagus is normal in caliber. No hiatal hernia. Chest wall: Nonunited fractures involving the anterior left second and third rib arcs. Mild impaction and sclerosis involving the fourth anterior rib arc. Nonunited anterior left seventh rib fracture. No definite visible soft tissue component or significant underlying pleural thickening. The overlying soft tissue is diffusely thickened along the mastectomy bed. There is a thin flat fluid collection along the right chest wall surrounded by a thickened rim which measures roughly 4.4 x 0.7 cm A rounded lymph node in the right axilla measures about 11 mm in short axis. In the slightly deeper node measures about 4 mm in short axis. The remainder of the nodes in the right axilla are normal. There is been an axillary dissection on the left along with mastectomy changes. Thyroid gland is normal. ABDOMEN: Solid organs: Liver is normal in size and enhancement. Cysts are present in the liver. Gallbladder is normal. Biliary system is non dilated. Pancreas enhances normally. Spleen is normal in size and enhancement. No adrenal nodules. Kidneys demonstrate normal size and enhancement, without hydronephrosis. Peritoneum and bowel: Bowel loops demonstrate normal wall thickness and caliber. Diverticulosis of the sigmoid colon without acute inflammatory change. Normal appendix. No free fluid or air. Nodes and vessels: Shotty distal retroperitoneal lymph nodes posterior to the aorta are unchanged in size. No retroperitoneal or mesenteric adenopathy by size criteria. Aorta and inferior vena cava are normal in size. Miscellaneous: No ventral hernias. PELVIS: Genitourinary: The urinary bladder is decompressed.. The fibroid arises from the right fundus of the retroverted uterus. Ovarian tissue appears normal. Miscellaneous: No inguinal hernias or adenopathy. Bones: Left rib fractures 2 through 4 and 7 as mentioned previously. Small sclerotic focus in the anterior left rib 4 and 6.. Lumbosacral and anterior cervical hardware is in place. No vertebral body compression fractures. IMPRESSION: 1. Nonunited fractures in anterior left ribs 2 through 4 and 7 with morphology suggestive of trauma. 2. Sclerotic foci seen in the left anterior ribs is unchanged compared to prior. Rib fractures are new since 2017. 3. Nonspecific 3 mm right pleural-based lung nodule unlikely to be clinically significant. 4. No other metastatic disease to the chest abdomen, or pelvis. 5. Postsurgical changes of left mastectomy with residual left chest wall stroma. 6. Rounded right axillary lymph nodes are nonspecific. Consider FNA if visible by ultrasound. Dictated by: Shaila Triplett M.D. on 04/15/2019 at 14:28 Approved by: Shaila Triplett M.D. on 04/15/2019 at 14:53
== END ==
PROVIDERS: PCP Family Medicine
DX: C50.912 Malignant neoplasm of unspecified site of left female breast (principal); S22.42XA Multiple fractures of ribs, left side, initial encounter for closed fracture; R91.1 Solitary pulmonary nodule; K76.89 Other specified diseases of liver; K57.30 Diverticulosis of large intestine without perforation or abscess without bleeding; X58.XXXA Exposure to other specified factors, initial encounter
CPT/HCPCS: 71260; 74177; Q9967

== ENCOUNTER → 2019-05-29 14:49 | Outpatient (CLI) | payer MEDICARE, OTHER, SELFPAY ==
[2019-05-29 15:34] LABS: RBC Urine 5-10/HPF (0-5/HPF); WBC Urine >100/HPF (0-5/HPF)
[2019-05-29 15:35] LABS: Squamous Epithelial Cell Urine 0-1 /HPF (0-5/HPF)
[2019-05-29 15:36] LABS: Amorphous Sediment Urine 1+; Bacteria Urine Moderate (10-30); Culture Indicated Urine Specimen Cultured
== END ==
PROVIDERS: PCP Family Medicine; Visit Provider Family Medicine
DX: R30.0 Dysuria (principal)
CPT/HCPCS: 81015; 87077; 87086; 87186

== ENCOUNTER 2019-08-03 08:15 | Outpatient (RCR) | payer MEDICARE, OTHER, SELFPAY ==
--- NOTE | 2018-10-16 17:16 | PT.OIE ---
Current Diagnoses Lymphedema, not elsewhere classified (10/16/18) Scar conditions and fibrosis of skin (10/16/18) Stiffness of left shoulder, not elsewhere classified (10/16/18) Personal history of malignant neoplasm of breast (10/16/18) Past Medical History (Last Reviewed 08/14/18 @ 17:39 by Maki Vides MD) Anxiety (Chronic) Breast cancer, left breast (Chronic 2016) Diabetes mellitus (Chronic ~1987) GERD (gastroesophageal reflux disease) (Chronic) Hayfever (Chronic ~1959) Hyperlipidemia (Chronic ~1997) Hypertension (Chronic ~1997) Lumbar spine pain (Chronic) Osteopenia (Chronic) Osteoporosis (Chronic) Shoulder pain (Chronic 2014) Urinary incontinence (Chronic 2012) Breast cancer (Resolved 1992) Cataract (Resolved 2010) Chicken pox (Resolved) Fractures (Resolved) History of recurrent ear infection (Resolved) Hyperparathyroidism (Resolved 2013) Measles (Resolved) Sternal fracture (Resolved 2014) Vertigo (Resolved 2011) Past Surgical History (Last Reviewed 08/14/18 @ 17:39 by Maki Vides MD) Anesthesia complication (Resolved) H/O lumpectomy (Resolved) H/O mastectomy (Resolved) History of fusion of cervical spine (Resolved 2011) History of knee replacement (Resolved 2006) History of lumbar spinal fusion (Resolved 2009) History of lumbar spinal fusion (Resolved) Provider Visit Care Team Role Provider Type Sylvie Roy DO Primary Care Provider Physician Specialty: Family Practice Address: [address] [place] [address] Email: [email or web address] Maki Vides MD Attending Provider Physician Specialty: General Surgery Address: [address] [place] [address] Email: [email or web address] Physical Therapy Initial Evaluation PT-OP-A Visit Information Start: 10/16/18 08:17 Freq: Status: Active Protocol: Document 10/16/18 16:29 VIKKI (Rec: 10/16/18 17:14 VIKKI [id number]) Out-Patient Physical Therapy Visit Information Visit Information Visit Type Initial Evaluation Visit Start Time 14:30 Visit Stop Time 15:45 Total Visit Minutes 75 Visit Number 1 Number of PEDIATRIC SPORTS MEDICINE SPECIALIST Visits 0 Evaluation Information Evaluation Date 10/16/18 PT-OP-B Current Condition Start: 10/16/18 08:17 Freq: Status: Active Protocol: Document 10/16/18 14:36 SAK (Rec: 10/16/18 14:58 [facility] [id number]) Current Condition History of Current Condition Onset Date mastectomy left 2017 Current Complaints lymphedema History of Current Condition Radiation, no chemo. December 2017 left chest felt swollen and warm, painful, didn't see MD until April. States physician noted adhesions of tissue left chest. Dr. Diaz : ice and Lidocaine patches; still using but warmth decreased some. LYmphedema left chest and subaxillary area. Wanted to go to gym for UE ex but hasn't started yet per physician recommendation. Future Testing and Treatments Planned MRI with possible biopsy Dr. Olivas 11/17/18 Treatment Goals Patient/Caregiver Goals Decrease edema and learn to self-manage lymphedema. Prior Functional Status Baseline Function- ADL's Independent Current Functional Impairments (Reported) Functional Limitations- ADL's difficult to reach overhead for ADL's and household activities PT-OP-C Subjective Start: 10/16/18 08:17 Freq: Status: Active Protocol: Document 10/16/18 16:29 [facility] (Rec: 10/16/18 17:14 [facility] [id number]) OP-PT Subjective Patient Comments Patient Comments States she just notices swelling in her left chest/ under her left arm Patient Questionnaires Lymphedema Life Impact Score Lymphedema Score 34 PT-OP-J Posture/Palpation/Skin Start: 10/16/18 08:17 Freq: Status: Active Protocol: Document 10/16/18 16:29 [facility] (Rec: 10/16/18 17:14 [facility] [id number]) Posture Evaluation Position Sitting Head/C-Spine Posture Forward Head T-Spine Posture Increased Kyphosis Shoulder Posture (L) Forward (R) Forward Arm Posture (L) Internally Rotated (R) Internally Rotated Skin Assessment Other Assessments Skin Assessment Comments left chest region with reddened appearance and moderately severe fibrosis and adherent soft tissue with poor mobility. PT-OP-K Range of Motion Start: 10/16/18 08:17 Freq: Status: Active Protocol: Document 10/16/18 16:29 SAK (Rec: 10/16/18 17:14 [facility] [id number]) Shoulder Goniometric Range of Motion Shoulder Measured in Degrees Active Shoulder ROM WFL Yes Testing Position Sitting Flexion 130 Extension 25 Abduction 132 Horizontal Abduction 0 External Rotation at 45 degrees 40 Abduction Internal Rotation Behind Back (text) WNL right Shoulder ROM WFL Yes Shoulder ROM Limitations Shoulder ROM Limitations Soft Tissue Tightness PT-OP-N Lymphedema Start: 10/16/18 08:17 Freq: Status: Active Protocol: Document 10/16/18 16:29 [facility] (Rec: 10/16/18 17:14 [facility] [id number]) Lymphedema Measurements Upper Extremity Circumference Measurements Left Affected MCP 18.7 cm Wrist 16.6 cm 5 cm From Distal Crease 17.2 cm 10 cm From Distal Crease 19.7 cm 15 cm From Distal Crease 23.5 cm 20 cm From Distal Crease 24.6 cm 25 cm From Distal Crease 27.8 cm 30 cm From Distal Crease 31.3 cm 35 cm From Distal Crease 34.3 cm 40 cm From Distal Crease 35.8 cm 45 cm From Distal Crease 35 cm Axilla 37.7 cm Right Unaffected MCP 19 cm Wrist 16.6 cm 5 cm From Distal Crease 16.7 cm 10 cm From Distal Crease 18.9 cm 15 cm From Distal Crease 22.3 cm 20 cm From Distal Crease 24.4 cm 25 cm From Distal Crease 25.7 cm 30 cm From Distal Crease 27.6 cm 35 cm From Distal Crease 32.3 cm 40 cm From Distal Crease 36 cm 45 cm From Distal Crease 36.1 cm Axilla 37.8 cm Comments Lymphedema Comments subaxillary trunk circumference 102.6 cm nipple line trunk circumference 101.5 PT-OP-Q Treatments Start: 10/16/18 08:17 Freq: Status: Active Protocol: Document 10/16/18 16:29 [facility] (Rec: 10/16/18 17:14 [facility] [id number]) Manual Therapy Treatment Soft Tissue Mobilization left anterior chest Mobilization Type Myofascial Release Intensity/Depth Superficial Body Position Hooklying Self-Care/Home Management Treatment Education Patient Education Home Exercise Program Other Education for improved shoulder ROM and flexibility of soft tissue left chest Lymphedema Treatment Manual Lymphatic Drainage Location left subaxillary region and UE Duration 10 min Comments introduction with explanation of technique and rationale Patient Education Lymphedema Pathology instructed Lymphedema Prevention instructed; issue handout next session Lymphedema Precautions discussed; issue handout next session Compression Garments discussed Self Manual Lymphatic Drainage started education; complete and issue handout next session Sequential Lymphedema Exercises next session PT-OP-T Assessment and Plan Start: 10/16/18 08:17 Freq: Status: Active Protocol: Document 10/16/18 16:29 VIKKI (Rec: 10/16/18 17:14 [facility] [id number]) Physical Therapy Assessment Rehab Potential Rehabilitation Potential Good Evaluation Complexity Number of Personal Factors/Comorbidities 3 or More Number of Body Systems Impaired 4 or More Clinical Presentation at Evaluation Unstable Impairments Impairments Edema Functional Activities ROM Soft Tissue Mobility Goals 4 Impairment not able to participate in usual exercise activities Long-Term Goal (LTG) Patient able to resume prior exercise activities without an increase in lymphedema LTG Duration 01/16/19 3 Impairment decreased soft tissue mobility left chest Client Architect Goal (LTG) Improve soft tissue mobility left chest to WNL LTG Duration 01/16/19 2 Impairment decreased left shoulder ROM Short Term Goal (STG) Patient to be independent with HEP for purposes of improving left shoulder ROM STG Duration 10/31/18 Client Architect Goal (LTG) Patient will attain full functional ROM of her left shoulder to allow her to reach overhead for purposes of ADL' s and household activities LTG Duration 01/16/19 1 Impairment lymphedema left UE Client Architect Goal (LTG) Decrease lymphedema to stable level with no increase or decrease more than 1 cm over the course of 1 wk, patient to obtain appropriate compression garment and demonstrate good understanding of self-management including self-MLD and sequential lymphedema exercises LTG Duration 01/16/19 Assessment Summary Assessment Patient presents with lymphedema left UE and chest, decreased left shoulder ROM, and decreased soft tissue mobility left chest affecting her ability to perform her usual activities. Has poor knowledge of lymphedema and management methods. I initiated education with her today regarding treatment options, precautions, long- term management. She will benefit from PT to address the above impairments and help her return to her prior activities and be able to self -manage her lymphedema. Physical Therapy Plan Frequency and Duration Frequency of Treatment 2-3x/wk Duration of Treatment 12 wks Plan of Care Start Date 10/16/18 Plan of Care End Date 01/16/19 Therapeutic Interventions Therapeutic Interventions Aquatic Therapy Home Exercise Program Lymphedema Management Manual Therapy Patient/Caregiver Education Self-Care/Home Management Soft Tissue Mobilization Taping Therapeutic Activities Therapeutic Exercises Modalities Cold Pack/Ice Massage Next Visit Focus/Plan Next Note Type Treatment Note Next Visit Plan Review HEP for shoulder flexibility, instruct in self MLD and sequential lymphedema exercises and issue handouts. Perform MLD left UE. Consider lymphedema wrapping or trial tubigrip.
--- NOTE | 2018-10-16 17:16 | PT.OPPOC ---
Current Diagnoses Lymphedema, not elsewhere classified (10/16/18) Scar conditions and fibrosis of skin (10/16/18) Stiffness of left shoulder, not elsewhere classified (10/16/18) Personal history of malignant neoplasm of breast (10/16/18) Provider Visit Care Team Role Provider Type Sylvie Roy DO Primary Care Provider Physician Specialty: Family Practice Address: [address] [place] [address], [id number] Email: [email or web address] Maki Vides MD Attending Provider Physician Specialty: General Surgery Address: [address] [place] [address], [id number] Email: [email or web address] Plan Of Care PT-OP-T Assessment and Plan Start: 10/16/18 08:17 Freq: Status: Active Protocol: Document 10/16/18 16:29 SAK (Rec: 10/16/18 17:14 [facility] [id number]) Physical Therapy Assessment Rehab Potential Rehabilitation Potential Good Evaluation Complexity Number of Personal Factors/Comorbidities 3 or More Number of Body Systems Impaired 4 or More Clinical Presentation at Evaluation Unstable Impairments Impairments Edema Functional Activities ROM Soft Tissue Mobility Goals 4 Impairment not able to participate in usual exercise activities Procedures Rn Goal (LTG) Patient able to resume prior exercise activities without an increase in lymphedema LTG Duration 01/16/19 3 Impairment decreased soft tissue mobility left chest Procedures Rn Goal (LTG) Improve soft tissue mobility left chest to WNL LTG Duration 01/16/19 2 Impairment decreased left shoulder ROM Short Term Goal (STG) Patient to be independent with HEP for purposes of improving left shoulder ROM STG Duration 10/31/18 Intermediate Goal (LTG) Patient will attain full functional ROM of her left shoulder to allow her to reach overhead for purposes of ADL' s and household activities LTG Duration 01/16/19 1 Impairment lymphedema left UE Procedures Rn Goal (LTG) Decrease lymphedema to stable level with no increase or decrease more than 1 cm over the course of 1 wk, patient to obtain appropriate compression garment and demonstrate good understanding of self-management including self-MLD and sequential lymphedema exercises LTG Duration 01/16/19 Assessment Summary Assessment Patient presents with lymphedema left UE and chest, decreased left shoulder ROM, and decreased soft tissue mobility left chest affecting her ability to perform her usual activities. Has poor knowledge of lymphedema and management methods. I initiated education with her today regarding treatment options, precautions, long- term management. She will benefit from PT to address the above impairments and help her return to her prior activities and be able to self -manage her lymphedema. Physical Therapy Plan Frequency and Duration Frequency of Treatment 2-3x/wk Duration of Treatment 12 wks Plan of Care Start Date 10/16/18 Plan of Care End Date 01/16/19 Therapeutic Interventions Therapeutic Interventions Aquatic Therapy Home Exercise Program Lymphedema Management Manual Therapy Patient/Caregiver Education Self-Care/Home Management Soft Tissue Mobilization Taping Therapeutic Activities Therapeutic Exercises Modalities Cold Pack/Ice Massage Next Visit Focus/Plan Next Note Type Treatment Note Next Visit Plan Review HEP for shoulder flexibility, instruct in self MLD and sequential lymphedema exercises and issue handouts. Perform MLD left UE. Consider lymphedema wrapping or trial tubigrip. Plan of Care Dates Plan of Care Start Date 10/16/18 Plan of Care End Date 01/16/19 Please Sign and Return: I have reviewed this Plan of Care and certify that the skilled therapy services above are required to meet the patient?s needs. Physician Signature Date Printed Name and Credentials Clinical Instructor Signature Printed Name and Credentials
--- NOTE | 2018-10-21 11:54 | PT.OTN ---
Current Diagnoses Personal history of malignant neoplasm of breast (10/21/18) Physical Therapy Treatment Note PT-OP-A Visit Information Start: 10/16/18 08:17 Freq: Status: Active Protocol: Document 10/21/18 10:30 GGD (Rec: 10/21/18 11:54 [facility]GD [id number]) Out-Patient Physical Therapy Visit Information Visit Information Visit Type Treatment Note Visit Start Time 10:30 Visit Stop Time 11:45 Total Visit Minutes 75 Visit Number 2 Number of FISH CULTURIST Visits 1 Evaluation Information Evaluation Date 10/16/18 PT-OP-B Current Condition Start: 10/16/18 08:17 Freq: Status: Active Protocol: Document 10/16/18 14:36 SAK (Rec: 10/16/18 14:58 [facility] [id number]) Current Condition History of Current Condition Onset Date mastectomy left 2016 Current Complaints lymphedema History of Current Condition Radiation, no chemo. December 2017 left chest felt swollen and warm, painful, didn't see MD until April. States physician noted adhesions of tissue left chest. Dr. Diaz : ice and Lidocaine patches; still using but warmth decreased some. LYmphedema left chest and subaxillary area. Wanted to go to gym for UE ex but hasn't started yet per physician recommendation. Future Testing and Treatments Planned MRI with possible biopsy Dr. Olivas 11/17/18 Treatment Goals Patient/Caregiver Goals Decrease edema and learn to self-manage lymphedema. Prior Functional Status Baseline Function- ADL's Independent Current Functional Impairments (Reported) Functional Limitations- ADL's difficult to reach overhead for ADL's and household activities PT-OP-C Subjective Start: 10/16/18 08:17 Freq: Status: Active Protocol: Document 10/21/18 10:30 [facility]GD (Rec: 10/21/18 11:54 [facility] [id number]) OP-PT Subjective Patient Comments Patient Comments Pt states she had some pain at times. PT-OP-J Posture/Palpation/Skin Start: 10/16/18 08:17 Freq: Status: Active Protocol: Document 10/16/18 16:29 [facility]AK (Rec: 10/16/18 17:14 [facility] [id number]) Posture Evaluation Position Sitting Head/C-Spine Posture Forward Head T-Spine Posture Increased Kyphosis Shoulder Posture (L) Forward (R) Forward Arm Posture (L) Internally Rotated (R) Internally Rotated Skin Assessment Other Assessments Skin Assessment Comments left chest region with reddened appearance and moderately severe fibrosis and adherent soft tissue with poor mobility. PT-OP-K Range of Motion Start: 10/16/18 08:17 Freq: Status: Active Protocol: Document 10/16/18 16:29 [facility] (Rec: 10/16/18 17:14 [facility] [id number]) Shoulder Goniometric Range of Motion Shoulder Measured in Degrees Active Shoulder ROM WFL Yes Testing Position Sitting Flexion 130 Extension 25 Abduction 132 Horizontal Abduction 0 External Rotation at 45 degrees 40 Abduction Internal Rotation Behind Back (text) WNL right Shoulder ROM WFL Yes Shoulder ROM Limitations Shoulder ROM Limitations Soft Tissue Tightness PT-OP-N Lymphedema Start: 10/16/18 08:17 Freq: Status: Active Protocol: Document 10/16/18 16:29 [facility] (Rec: 10/16/18 17:14 [facility] [id number]) Lymphedema Measurements Upper Extremity Circumference Measurements Left Affected MCP 18.7 cm Wrist 16.6 cm 5 cm From Distal Crease 17.2 cm 10 cm From Distal Crease 19.7 cm 15 cm From Distal Crease 23.5 cm 20 cm From Distal Crease 24.6 cm 25 cm From Distal Crease 27.8 cm 30 cm From Distal Crease 31.3 cm 35 cm From Distal Crease 34.3 cm 40 cm From Distal Crease 35.8 cm 45 cm From Distal Crease 35 cm Axilla 37.7 cm Right Unaffected MCP 19 cm Wrist 16.6 cm 5 cm From Distal Crease 16.7 cm 10 cm From Distal Crease 18.9 cm 15 cm From Distal Crease 22.3 cm 20 cm From Distal Crease 24.4 cm 25 cm From Distal Crease 25.7 cm 30 cm From Distal Crease 27.6 cm 35 cm From Distal Crease 32.3 cm 40 cm From Distal Crease 36 cm 45 cm From Distal Crease 36.1 cm Axilla 37.8 cm Comments Lymphedema Comments subaxillary trunk circumference 102.6 cm nipple line trunk circumference 101.5 PT-OP-Q Treatments Start: 10/16/18 08:17 Freq: Status: Active Protocol: Document 10/21/18 10:30 GGD (Rec: 10/21/18 11:54 [facility]GD [id number]) Therapeutic Exercises Supine Exercises 1 Supine Exercise Name Shoulder ROM, flexion and ER Sidelying Exercises 1 Sidelying Exercise Name Shoulder ROM, ABD, roll and reach Manual Therapy Treatment Soft Tissue Mobilization left anterior chest Mobilization Type Myofascial Release Intensity/Depth Superficial Body Position Hooklying Lymphedema Treatment Manual Lymphatic Drainage Location left subaxillary region and UE Duration 25 min Sequential Lymphedema Exercises Location UE Duration 10 min PT-OP-T Assessment and Plan Start: 10/16/18 08:17 Freq: Status: Active Protocol: Document 10/21/18 10:30 GGD (Rec: 10/21/18 11:54 [facility] [id number]) Physical Therapy Assessment Assessment Summary Assessment Pt had good tolerance to exercises. She improving with shoulder ROM. She tolerated STM to left chest bur had decrease mobility. Physical Therapy Plan Frequency and Duration Frequency of Treatment 2-3x/wk Duration of Treatment 12 wks Plan of Care Start Date 10/16/18 Plan of Care End Date 01/16/19 Next Visit Focus/Plan Next Visit Plan Instruct in self MLD and issue handouts. Perform MLD left UE. Consider lymphedema wrapping or trial tubigrip. Consider tape for chest scar.
--- NOTE | 2018-10-28 11:48 | PT.OTN ---
Current Diagnoses Personal history of malignant neoplasm of breast (10/28/18) Physical Therapy Treatment Note PT-OP-A Visit Information Start: 10/16/18 08:17 Freq: Status: Active Protocol: Document 10/28/18 11:38 GGD (Rec: 10/28/18 11:47 GGD [email or web address]) Out-Patient Physical Therapy Visit Information Visit Information Visit Type Treatment Note Visit Start Time 10:30 Visit Stop Time 11:35 Visit Number 3 Number of TICKETING AGENT Visits 2 Evaluation Information Evaluation Date 10/16/18 PT-OP-B Current Condition Start: 10/16/18 08:17 Freq: Status: Active Protocol: Document 10/16/18 14:36 SAK (Rec: 10/16/18 14:58 SAK [id number]) Current Condition History of Current Condition Onset Date mastectomy left 2016 Current Complaints lymphedema History of Current Condition Radiation, no chemo. December 2017 left chest felt swollen and warm, painful, didn't see MD until April. States physician noted adhesions of tissue left chest. Dr. Diaz : ice and Lidocaine patches; still using but warmth decreased some. LYmphedema left chest and subaxillary area. Wanted to go to gym for UE ex but hasn't started yet per physician recommendation. Future Testing and Treatments Planned MRI with possible biopsy Dr. Olivas 11/17/18 Treatment Goals Patient/Caregiver Goals Decrease edema and learn to self-manage lymphedema. Prior Functional Status Baseline Function- ADL's Independent Current Functional Impairments (Reported) Functional Limitations- ADL's difficult to reach overhead for ADL's and household activities PT-OP-C Subjective Start: 10/16/18 08:17 Freq: Status: Active Protocol: Document 10/28/18 11:38 GGD (Rec: 10/28/18 11:47 GGD [email or web address]) OP-PT Subjective Patient Comments Patient Comments Pt states she feels small improvements. PT-OP-J Posture/Palpation/Skin Start: 10/16/18 08:17 Freq: Status: Active Protocol: Document 10/16/18 16:29 SAK (Rec: 10/16/18 17:14 SAK [id number]) Posture Evaluation Position Sitting Head/C-Spine Posture Forward Head T-Spine Posture Increased Kyphosis Shoulder Posture (L) Forward (R) Forward Arm Posture (L) Internally Rotated (R) Internally Rotated Skin Assessment Other Assessments Skin Assessment Comments left chest region with reddened appearance and moderately severe fibrosis and adherent soft tissue with poor mobility. PT-OP-K Range of Motion Start: 10/16/18 08:17 Freq: Status: Active Protocol: Document 10/16/18 16:29 SAK (Rec: 10/16/18 17:14 SAK [id number]) Shoulder Goniometric Range of Motion Shoulder Measured in Degrees Active Shoulder ROM WFL Yes Testing Position Sitting Flexion 130 Extension 25 Abduction 132 Horizontal Abduction 0 External Rotation at 45 degrees 40 Abduction Internal Rotation Behind Back (text) WNL right Shoulder ROM WFL Yes Shoulder ROM Limitations Shoulder ROM Limitations Soft Tissue Tightness PT-OP-N Lymphedema Start: 10/16/18 08:17 Freq: Status: Active Protocol: Document 10/28/18 11:38 GGD (Rec: 10/28/18 11:48 GGD [email or web address]) Lymphedema Measurements Upper Extremity Circumference Measurements Left Affected MCP 18.6 cm Wrist 16.5 cm 5 cm From Distal Crease 17 cm 10 cm From Distal Crease 19.4 cm 15 cm From Distal Crease 23.2 cm 20 cm From Distal Crease 24.8 cm 25 cm From Distal Crease 27.4 cm 30 cm From Distal Crease 30.8 cm 35 cm From Distal Crease 34.3 cm 40 cm From Distal Crease 37.7 cm 45 cm From Distal Crease 36.1 cm PT-OP-Q Treatments Start: 10/16/18 08:17 Freq: Status: Active Protocol: Document 10/28/18 11:38 GGD (Rec: 10/28/18 11:47 GGD [email or web address]) Therapeutic Exercises Supine Exercises 1 Supine Exercise Name Shoulder ROM, flexion and ER Manual Therapy Treatment Soft Tissue Mobilization left anterior chest Body Location scar tissue Mobilization Type Myofascial Release Rolling Other Intensity/Depth Superficial Body Position Hooklying Taping left anterior chest Treatment Focus scar tissue Type of Tape Kinesio Tape Comments I strip for scar mobility. Lymphedema Treatment Manual Lymphatic Drainage Location left subaxillary region and UE Duration 30 min PT-OP-T Assessment and Plan Start: 10/16/18 08:17 Freq: Status: Active Protocol: Document 10/28/18 11:38 GGD (Rec: 10/28/18 11:47 GGD [email or web address]) Physical Therapy Assessment Goals 4 Impairment not able to participate in usual exercise activities Filtrose Crusher Goal (LTG) Patient able to resume prior exercise activities without an increase in lymphedema LTG Duration 01/16/19 3 Impairment decreased soft tissue mobility left chest Filtrose Crusher Goal (LTG) Improve soft tissue mobility left chest to WNL LTG Duration 01/16/19 2 Impairment decreased left shoulder ROM Short Term Goal (STG) Patient to be independent with HEP for purposes of improving left shoulder ROM STG Duration 10/31/18 Filtrose Crusher Goal (LTG) Patient will attain full functional ROM of her left shoulder to allow her to reach overhead for purposes of ADL' s and household activities LTG Duration 01/16/19 1 Impairment lymphedema left UE Filtrose Crusher Goal (LTG) Decrease lymphedema to stable level with no increase or decrease more than 1 cm over the course of 1 wk, patient to obtain appropriate compression garment and demonstrate good understanding of self-management including self-MLD and sequential lymphedema exercises LTG Duration 01/16/19 Assessment Summary Assessment Pt had decrease in UE girth measurements. Hold trial of UE wrapping, due to improvement in UE edema. She had improved understanding of HEP. Mild improvement in tissue mobility of scar. Physical Therapy Plan Frequency and Duration Frequency of Treatment 2-3x/wk Duration of Treatment 12 wks Plan of Care Start Date 10/16/18 Plan of Care End Date 01/16/19 Next Visit Focus/Plan Next Note Type Treatment Note Next Visit Plan Instruct in self MLD and issue handouts. asses tolerance to tape for chest scar.
--- NOTE | 2018-11-04 15:17 | PT.OTN ---
Current Diagnoses Personal history of malignant neoplasm of breast (11/04/18) Physical Therapy Treatment Note PT-OP-A Visit Information Start: 10/16/18 08:17 Freq: Status: Active Protocol: Document 11/04/18 11:50 GGD (Rec: 11/04/18 11:58 GGD [email or web address]) Out-Patient Physical Therapy Visit Information Visit Information Visit Type Treatment Note Visit Start Time 10:30 Visit Stop Time 11:45 Visit Number 4 Number of WOOD LAST MAKER Visits 3 Evaluation Information Evaluation Date 10/16/18 PT-OP-B Current Condition Start: 10/16/18 08:17 Freq: Status: Active Protocol: Document 10/16/18 14:36 SAK (Rec: 10/16/18 14:58 SAK [id number]) Current Condition History of Current Condition Onset Date mastectomy left 2016 Current Complaints lymphedema History of Current Condition Radiation, no chemo. December 2017 left chest felt swollen and warm, painful, didn't see MD until April. States physician noted adhesions of tissue left chest. Dr. Diaz : ice and Lidocaine patches; still using but warmth decreased some. LYmphedema left chest and subaxillary area. Wanted to go to gym for UE ex but hasn't started yet per physician recommendation. Future Testing and Treatments Planned MRI with possible biopsy Dr. Olivas 11/17/18 Treatment Goals Patient/Caregiver Goals Decrease edema and learn to self-manage lymphedema. Prior Functional Status Baseline Function- ADL's Independent Current Functional Impairments (Reported) Functional Limitations- ADL's difficult to reach overhead for ADL's and household activities PT-OP-C Subjective Start: 10/16/18 08:17 Freq: Status: Active Protocol: Document 11/04/18 11:50 GGD (Rec: 11/04/18 11:58 GGD [email or web address]) OP-PT Subjective Patient Comments Patient Comments Pt states she feels scar tissue moving better PT-OP-J Posture/Palpation/Skin Start: 10/16/18 08:17 Freq: Status: Active Protocol: Document 10/16/18 16:29 SAK (Rec: 10/16/18 17:14 SAK [id number]) Posture Evaluation Position Sitting Head/C-Spine Posture Forward Head T-Spine Posture Increased Kyphosis Shoulder Posture (L) Forward (R) Forward Arm Posture (L) Internally Rotated (R) Internally Rotated Skin Assessment Other Assessments Skin Assessment Comments left chest region with reddened appearance and moderately severe fibrosis and adherent soft tissue with poor mobility. PT-OP-K Range of Motion Start: 10/16/18 08:17 Freq: Status: Active Protocol: Document 10/16/18 16:29 SAK (Rec: 10/16/18 17:14 SAK [id number]) Shoulder Goniometric Range of Motion Shoulder Measured in Degrees Active Shoulder ROM WFL Yes Testing Position Sitting Flexion 130 Extension 25 Abduction 132 Horizontal Abduction 0 External Rotation at 45 degrees 40 Abduction Internal Rotation Behind Back (text) WNL right Shoulder ROM WFL Yes Shoulder ROM Limitations Shoulder ROM Limitations Soft Tissue Tightness PT-OP-N Lymphedema Start: 10/16/18 08:17 Freq: Status: Active Protocol: Document 11/04/18 11:50 GGD (Rec: 11/04/18 15:17 GGD [email or web address]) Lymphedema Measurements Upper Extremity Circumference Measurements Left Affected MCP 18.2 cm Wrist 16.1 cm 5 cm From Distal Crease 16.6 cm 10 cm From Distal Crease 19.2 cm 15 cm From Distal Crease 22.8 cm 20 cm From Distal Crease 24.9 cm 25 cm From Distal Crease 26.9 cm 30 cm From Distal Crease 29.5 cm 35 cm From Distal Crease 33.9 cm 40 cm From Distal Crease 37 cm 45 cm From Distal Crease 37.7 cm PT-OP-Q Treatments Start: 10/16/18 08:17 Freq: Status: Active Protocol: Document 11/04/18 11:50 GGD (Rec: 11/04/18 15:17 GGD [email or web address]) Therapeutic Exercises Sidelying Exercises 1 Sidelying Exercise Name Shoulder ROM, ABD, roll and reach Manual Therapy Treatment Soft Tissue Mobilization left anterior chest Body Location scar tissue Mobilization Type Myofascial Release Rolling Other Intensity/Depth Superficial Body Position Hooklying Taping left anterior chest Treatment Focus scar tissue Type of Tape Kinesio Tape Comments I strip for scar mobility. Self-Care/Home Management Treatment Education Patient Education Home Exercise Program Other Education for self MLD Lymphedema Treatment Manual Lymphatic Drainage Location left subaxillary region and UE Duration 30 min PT-OP-T Assessment and Plan Start: 10/16/18 08:17 Freq: Status: Active Protocol: Document 11/04/18 11:50 GGD (Rec: 11/04/18 15:17 GGD [email or web address]) Physical Therapy Assessment Assessment Summary Assessment Pt had decrease in UE girth measurements. SHe improving in tissue mobility. She had a good tolerance to tape. Physical Therapy Plan Frequency and Duration Frequency of Treatment 2-3x/wk Duration of Treatment 12 wks Plan of Care Start Date 10/16/18 Plan of Care End Date 01/16/19 Next Visit Focus/Plan Next Note Type Treatment Note Next Visit Plan Review HEP
--- NOTE | 2018-11-18 12:14 | PT.OTN ---
Current Diagnoses Personal history of malignant neoplasm of breast (11/18/18) Physical Therapy Treatment Note PT-OP-A Visit Information Start: 10/16/18 08:17 Freq: Status: Active Protocol: Document 11/18/18 11:54 GGD (Rec: 11/18/18 12:13 GGD [email or web address]) Out-Patient Physical Therapy Visit Information Visit Information Visit Type Treatment Note Visit Start Time 10:30 Visit Stop Time 11:40 Visit Number 5 Number of MANAGER TRUST Visits 4 Evaluation Information Evaluation Date 10/16/18 PT-OP-B Current Condition Start: 10/16/18 08:17 Freq: Status: Active Protocol: Document 10/16/18 14:36 SAK (Rec: 10/16/18 14:58 SAK [id number]) Current Condition History of Current Condition Onset Date mastectomy left 2016 Current Complaints lymphedema History of Current Condition Radiation, no chemo. December 2017 left chest felt swollen and warm, painful, didn't see MD until April. States physician noted adhesions of tissue left chest. Dr. Diaz : ice and Lidocaine patches; still using but warmth decreased some. LYmphedema left chest and subaxillary area. Wanted to go to gym for UE ex but hasn't started yet per physician recommendation. Future Testing and Treatments Planned MRI with possible biopsy Dr. Olivas 11/17/18 Treatment Goals Patient/Caregiver Goals Decrease edema and learn to self-manage lymphedema. Prior Functional Status Baseline Function- ADL's Independent Current Functional Impairments (Reported) Functional Limitations- ADL's difficult to reach overhead for ADL's and household activities PT-OP-C Subjective Start: 10/16/18 08:17 Freq: Status: Active Protocol: Document 11/18/18 11:54 GGD (Rec: 11/18/18 12:13 GGD [email or web address]) OP-PT Subjective Patient Comments Patient Comments Pt states she having less pain over scar area. PT-OP-J Posture/Palpation/Skin Start: 10/16/18 08:17 Freq: Status: Active Protocol: Document 10/16/18 16:29 SAK (Rec: 10/16/18 17:14 SAK [id number]) Posture Evaluation Position Sitting Head/C-Spine Posture Forward Head T-Spine Posture Increased Kyphosis Shoulder Posture (L) Forward (R) Forward Arm Posture (L) Internally Rotated (R) Internally Rotated Skin Assessment Other Assessments Skin Assessment Comments left chest region with reddened appearance and moderately severe fibrosis and adherent soft tissue with poor mobility. PT-OP-K Range of Motion Start: 10/16/18 08:17 Freq: Status: Active Protocol: Document 10/16/18 16:29 SAK (Rec: 10/16/18 17:14 SAK [id number]) Shoulder Goniometric Range of Motion Shoulder Active Shoulder ROM WFL Yes Testing Position Sitting Flexion 130 Extension 25 Abduction 132 Horizontal Abduction 0 External Rotation at 45 degrees 40 Abduction Internal Rotation Behind Back (text) WNL right Shoulder ROM WFL Yes Shoulder ROM Limitations Shoulder ROM Limitations Soft Tissue Tightness PT-OP-N Lymphedema Start: 10/16/18 08:17 Freq: Status: Active Protocol: Document 11/18/18 11:54 GGD (Rec: 11/18/18 12:13 GGD [email or web address]) Lymphedema Measurements Upper Extremity Circumference Measurements Left Affected MCP 18.2 cm Wrist 16.1 cm 5 cm From Distal Crease 16.7 cm 10 cm From Distal Crease 19.4 cm 15 cm From Distal Crease 22.8 cm 20 cm From Distal Crease 25 cm 25 cm From Distal Crease 26.8 cm 30 cm From Distal Crease 29.6 cm 35 cm From Distal Crease 34 cm 40 cm From Distal Crease 37.2 cm 45 cm From Distal Crease 38.1 cm PT-OP-Q Treatments Start: 10/16/18 08:17 Freq: Status: Active Protocol: Document 11/18/18 11:54 GGD (Rec: 11/18/18 12:13 GGD [email or web address]) Manual Therapy Treatment Soft Tissue Mobilization left anterior chest Body Location scar tissue Mobilization Type Myofascial Release Rolling Other Intensity/Depth Superficial Body Position Hooklying Taping left anterior chest Treatment Focus scar tissue Type of Tape Kinesio Tape Comments I strip for scar mobility. Self-Care/Home Management Treatment Education Patient Education Home Exercise Program Other Education Review Lymphedema Treatment Manual Lymphatic Drainage Location left subaxillary region and UE Duration 30 min PT-OP-T Assessment and Plan Start: 10/16/18 08:17 Freq: Status: Active Protocol: Document 11/18/18 11:54 GGD (Rec: 11/18/18 12:13 GGD [email or web address]) Physical Therapy Assessment Assessment Summary Assessment Pt improving slowly with scar mobility. She need magnifications of HEP to limit LBK pain. Physical Therapy Plan Frequency and Duration Frequency of Treatment 2-3x/wk Duration of Treatment 12 wks Plan of Care Start Date 10/16/18 Plan of Care End Date 01/16/19 Next Visit Focus/Plan Next Note Type Treatment Note Next Visit Plan Shoulder ROM
--- NOTE | 2018-11-27 16:19 | PT.OTN ---
Current Diagnoses Personal history of malignant neoplasm of breast (11/27/18) Physical Therapy Treatment Note PT-OP-A Visit Information Start: 10/16/18 08:17 Freq: Status: Active Protocol: Document 11/27/18 12:58 SAK (Rec: 11/27/18 13:17 [facility] [id number]) Out-Patient Physical Therapy Visit Information Visit Information Visit Type Treatment Note Visit Start Time 13:00 Visit Stop Time 14:10 Total Visit Minutes 70 Visit Number 6 Number of NOZZLE WORKER Visits 0 Evaluation Information Evaluation Date 10/16/18 PT-OP-B Current Condition Start: 10/16/18 08:17 Freq: Status: Active Protocol: Document 10/16/18 14:36 SAK (Rec: 10/16/18 14:58 SAK [id number]) Current Condition History of Current Condition Onset Date mastectomy left 2016 Current Complaints lymphedema History of Current Condition Radiation, no chemo. December 2017 left chest felt swollen and warm, painful, didn't see MD until April. States physician noted adhesions of tissue left chest. Dr. Diaz : ice and Lidocaine patches; still using but warmth decreased some. LYmphedema left chest and subaxillary area. Wanted to go to gym for UE ex but hasn't started yet per physician recommendation. Future Testing and Treatments Planned MRI with possible biopsy Dr. Olivas 11/17/18 Treatment Goals Patient/Caregiver Goals Decrease edema and learn to self-manage lymphedema. Prior Functional Status Baseline Function- ADL's Independent Current Functional Impairments (Reported) Functional Limitations- ADL's difficult to reach overhead for ADL's and household activities PT-OP-C Subjective Start: 10/16/18 08:17 Freq: Status: Active Protocol: Document 11/27/18 12:58 SAK (Rec: 11/27/18 13:17 [facility] [id number]) OP-PT Subjective Patient Comments Patient Comments Compliant to HEP, didn't tolerate vertical kinesiotape but did like horizontal. Patient reports some back pain persists, has had injection in the past. Will see physician next week. PT-OP-J Posture/Palpation/Skin Start: 10/16/18 08:17 Freq: Status: Active Protocol: Document 10/16/18 16:29 SAK (Rec: 10/16/18 17:14 SAK [id number]) Posture Evaluation Position Sitting Head/C-Spine Posture Forward Head T-Spine Posture Increased Kyphosis Shoulder Posture (L) Forward (R) Forward Arm Posture (L) Internally Rotated (R) Internally Rotated Skin Assessment Other Assessments Skin Assessment Comments left chest region with reddened appearance and moderately severe fibrosis and adherent soft tissue with poor mobility. PT-OP-K Range of Motion Start: 10/16/18 08:17 Freq: Status: Active Protocol: Document 10/16/18 16:29 SAK (Rec: 10/16/18 17:14 SAK [id number]) Shoulder Goniometric Range of Motion Shoulder Active Shoulder ROM WFL Yes Testing Position Sitting Flexion 130 Extension 25 Abduction 132 Horizontal Abduction 0 External Rotation at 45 degrees 40 Abduction Internal Rotation Behind Back (text) WNL right Shoulder ROM WFL Yes Shoulder ROM Limitations Shoulder ROM Limitations Soft Tissue Tightness PT-OP-N Lymphedema Start: 10/16/18 08:17 Freq: Status: Active Protocol: Document 11/18/18 11:54 GGD (Rec: 11/18/18 12:13 GGD [email or web address]) Lymphedema Measurements Upper Extremity Circumference Measurements Left Affected MCP 18.2 cm Wrist 16.1 cm 5 cm From Distal Crease 16.7 cm 10 cm From Distal Crease 19.4 cm 15 cm From Distal Crease 22.8 cm 20 cm From Distal Crease 25 cm 25 cm From Distal Crease 26.8 cm 30 cm From Distal Crease 29.6 cm 35 cm From Distal Crease 34 cm 40 cm From Distal Crease 37.2 cm 45 cm From Distal Crease 38.1 cm PT-OP-Q Treatments Start: 10/16/18 08:17 Freq: Status: Active Protocol: Document 11/27/18 12:58 SAK (Rec: 11/27/18 13:17 SAK [id number]) Therapeutic Exercises Supine Exercises 1 Supine Exercise Name Shoulder ROM, flexion and ER Sitting Exercises pulleys for shoulder flex Reps/Minutes 10x Comments 3x end-range stretch with deep breathing. Manual Therapy Treatment Soft Tissue Mobilization left anterior chest Body Location scar tissue Mobilization Type Myofascial Release Rolling Other Intensity/Depth Superficial Body Position Hooklying Taping left anterior chest Treatment Focus scar tissue Type of Tape Kinesio Tape Comments 2 I strips for scar mobility ; placed horizontally in scar region PT-OP-T Assessment and Plan Start: 10/16/18 08:17 Freq: Status: Active Protocol: Document 11/27/18 12:58 [facility] (Rec: 11/27/18 13:17 [facility] [id number]) Physical Therapy Assessment Goals 4 Impairment not able to participate in usual exercise activities Usp Goal (LTG) Patient able to resume prior exercise activities without an increase in lymphedema LTG Duration 01/16/19 3 Impairment decreased soft tissue mobility left chest Journeyman Glazier Goal (LTG) Improve soft tissue mobility left chest to WNL LTG Duration 01/16/19 2 Impairment decreased left shoulder ROM Short Term Goal (STG) Patient to be independent with HEP for purposes of improving left shoulder ROM STG Duration 10/31/18 Journeyman Glazier Goal (LTG) Patient will attain full functional ROM of her left shoulder to allow her to reach overhead for purposes of ADL' s and household activities LTG Duration 01/16/19 1 Impairment lymphedema left UE Journeyman Glazier Goal (LTG) Decrease lymphedema to stable level with no increase or decrease more than 1 cm over the course of 1 wk, patient to obtain appropriate compression garment and demonstrate good understanding of self-management including self-MLD and sequential lymphedema exercises LTG Duration 01/16/19 Assessment Summary Assessment Decrease in subaxillary trunk measurement, slight increase at nipple line. Improving shoulder ROM and scar/soft tissue mobility. Physical Therapy Plan Frequency and Duration Frequency of Treatment 2-3x/wk Duration of Treatment 12 wks Plan of Care Start Date 10/16/18 Plan of Care End Date 01/16/19 Therapeutic Interventions Therapeutic Interventions Aquatic Therapy Home Exercise Program Lymphedema Management Manual Therapy Patient/Caregiver Education Self-Care/Home Management Soft Tissue Mobilization Taping Therapeutic Activities Therapeutic Exercises Modalities Cold Pack/Ice Massage Next Visit Focus/Plan Next Note Type Treatment Note
--- NOTE | 2018-12-02 10:21 | PT.OTN ---
Current Diagnoses Personal history of malignant neoplasm of breast (12/02/18) Physical Therapy Treatment Note PT-OP-A Visit Information Start: 10/16/18 08:17 Freq: Status: Active Protocol: Document 12/02/18 10:15 GGD (Rec: 12/02/18 10:21 GGD [email or web address]) Out-Patient Physical Therapy Visit Information Visit Information Visit Type Treatment Note Visit Start Time 09:00 Visit Stop Time 10:10 Total Visit Minutes 70 Visit Number 7 Number of ARMATURE BALANCER Visits 1 Evaluation Information Evaluation Date 10/16/18 PT-OP-B Current Condition Start: 10/16/18 08:17 Freq: Status: Active Protocol: Document 10/16/18 14:36 SAK (Rec: 10/16/18 14:58 SAK [id number]) Current Condition History of Current Condition Onset Date mastectomy left 2016 Current Complaints lymphedema History of Current Condition Radiation, no chemo. December 2017 left chest felt swollen and warm, painful, didn't see MD until April. States physician noted adhesions of tissue left chest. Dr. Diaz : ice and Lidocaine patches; still using but warmth decreased some. LYmphedema left chest and subaxillary area. Wanted to go to gym for UE ex but hasn't started yet per physician recommendation. Future Testing and Treatments Planned MRI with possible biopsy Dr. Olivas 11/17/18 Treatment Goals Patient/Caregiver Goals Decrease edema and learn to self-manage lymphedema. Prior Functional Status Baseline Function- ADL's Independent Current Functional Impairments (Reported) Functional Limitations- ADL's difficult to reach overhead for ADL's and household activities PT-OP-C Subjective Start: 10/16/18 08:17 Freq: Status: Active Protocol: Document 12/02/18 10:15 GGD (Rec: 12/02/18 10:21 GGD [email or web address]) OP-PT Subjective Patient Comments Patient Comments Pt states she having less pain and tightness near sternum. PT-OP-J Posture/Palpation/Skin Start: 10/16/18 08:17 Freq: Status: Active Protocol: Document 10/16/18 16:29 SAK (Rec: 10/16/18 17:14 SAK [id number]) Posture Evaluation Position Sitting Head/C-Spine Posture Forward Head T-Spine Posture Increased Kyphosis Shoulder Posture (L) Forward (R) Forward Arm Posture (L) Internally Rotated (R) Internally Rotated Skin Assessment Other Assessments Skin Assessment Comments left chest region with reddened appearance and moderately severe fibrosis and adherent soft tissue with poor mobility. PT-OP-K Range of Motion Start: 10/16/18 08:17 Freq: Status: Active Protocol: Document 10/16/18 16:29 SAK (Rec: 10/16/18 17:14 SAK [id number]) Shoulder Goniometric Range of Motion Shoulder Active Shoulder ROM WFL Yes Testing Position Sitting Flexion 130 Extension 25 Abduction 132 Horizontal Abduction 0 External Rotation at 45 degrees 40 Abduction Internal Rotation Behind Back (text) WNL right Shoulder ROM WFL Yes Shoulder ROM Limitations Shoulder ROM Limitations Soft Tissue Tightness PT-OP-N Lymphedema Start: 10/16/18 08:17 Freq: Status: Active Protocol: Document 11/18/18 11:54 GGD (Rec: 11/18/18 12:13 GGD [email or web address]) Lymphedema Measurements Upper Extremity Circumference Measurements Left Affected MCP 18.2 cm Wrist 16.1 cm 5 cm From Distal Crease 16.7 cm 10 cm From Distal Crease 19.4 cm 15 cm From Distal Crease 22.8 cm 20 cm From Distal Crease 25 cm 25 cm From Distal Crease 26.8 cm 30 cm From Distal Crease 29.6 cm 35 cm From Distal Crease 34 cm 40 cm From Distal Crease 37.2 cm 45 cm From Distal Crease 38.1 cm PT-OP-Q Treatments Start: 10/16/18 08:17 Freq: Status: Active Protocol: Document 12/02/18 10:15 GGD (Rec: 12/02/18 10:21 GGD [email or web address]) Therapeutic Exercises Supine Exercises wand shoulder Supine Exercise Name wand for abd and flexion Side left Reps/Minutes 3 1 Supine Exercise Name Shoulder ROM, flexion and ER Sitting Exercises pulleys for shoulder flex Reps/Minutes 10x Comments 3x end-range stretch with deep breathing. Manual Therapy Treatment Soft Tissue Mobilization left anterior chest Body Location scar tissue Mobilization Type Myofascial Release Rolling Other Intensity/Depth Superficial Body Position Hooklying Taping left anterior chest Treatment Focus scar tissue Type of Tape Kinesio Tape Comments I strips for scar mobility; placed horizontally in scar region PT-OP-T Assessment and Plan Start: 10/16/18 08:17 Freq: Status: Active Protocol: Document 12/02/18 10:15 GGD (Rec: 12/02/18 10:21 [email or web address]) Physical Therapy Assessment Assessment Summary Assessment Pt improving with shoulder ROM and tissue mobility. She has improved pain control. Physical Therapy Plan Frequency and Duration Frequency of Treatment 2-3x/wk Duration of Treatment 12 wks Plan of Care Start Date 10/16/18 Plan of Care End Date 01/16/19 Next Visit Focus/Plan Next Note Type Treatment Note Next Visit Plan scar mobility
--- NOTE | 2018-12-18 17:06 | PT.OTN ---
Current Diagnoses Personal history of malignant neoplasm of breast (12/17/18) Physical Therapy Treatment Note PT-OP-A Visit Information Start: 10/16/18 08:17 Freq: Status: Active Protocol: Document 12/17/18 08:00 SAK (Rec: 12/18/18 17:05 [facility] [id number]) Out-Patient Physical Therapy Visit Information Visit Information Visit Type Treatment Note Visit Start Time 08:00 Visit Stop Time 09:10 Total Visit Minutes 70 Visit Number 8 Number of VOICE INTERCEPT TECHNICIAN Visits 0 Evaluation Information Evaluation Date 10/16/18 PT-OP-B Current Condition Start: 10/16/18 08:17 Freq: Status: Active Protocol: Document 10/16/18 14:36 SAK (Rec: 10/16/18 14:58 SAK [id number]) Current Condition History of Current Condition Onset Date mastectomy left 2016 Current Complaints lymphedema History of Current Condition Radiation, no chemo. December 2017 left chest felt swollen and warm, painful, didn't see MD until April. States physician noted adhesions of tissue left chest. Dr. Diaz : ice and Lidocaine patches; still using but warmth decreased some. LYmphedema left chest and subaxillary area. Wanted to go to gym for UE ex but hasn't started yet per physician recommendation. Future Testing and Treatments Planned MRI with possible biopsy Dr. Olivas 11/17/18 Treatment Goals Patient/Caregiver Goals Decrease edema and learn to self-manage lymphedema. Prior Functional Status Baseline Function- ADL's Independent Current Functional Impairments (Reported) Functional Limitations- ADL's difficult to reach overhead for ADL's and household activities PT-OP-C Subjective Start: 10/16/18 08:17 Freq: Status: Active Protocol: Document 12/17/18 08:00 SAK (Rec: 12/18/18 17:05 [facility] [id number]) OP-PT Subjective Patient Comments Patient Comments Reports that after picking up a toddler and a baby a couple days ago while helping a mother, she has increased pain and swelling in chest. PT-OP-J Posture/Palpation/Skin Start: 10/16/18 08:17 Freq: Status: Active Protocol: Document 10/16/18 16:29 SAK (Rec: 10/16/18 17:14 SAK [id number]) Posture Evaluation Position Sitting Head/C-Spine Posture Forward Head T-Spine Posture Increased Kyphosis Shoulder Posture (L) Forward (R) Forward Arm Posture (L) Internally Rotated (R) Internally Rotated Skin Assessment Other Assessments Skin Assessment Comments left chest region with reddened appearance and moderately severe fibrosis and adherent soft tissue with poor mobility. PT-OP-K Range of Motion Start: 10/16/18 08:17 Freq: Status: Active Protocol: Document 10/16/18 16:29 [facility] (Rec: 10/16/18 17:14 [facility] [id number]) Shoulder Goniometric Range of Motion Shoulder Active Shoulder ROM WFL Yes Testing Position Sitting Flexion 130 Extension 25 Abduction 132 Horizontal Abduction 0 External Rotation at 45 degrees 40 Abduction Internal Rotation Behind Back (text) WNL right Shoulder ROM WFL Yes Shoulder ROM Limitations Shoulder ROM Limitations Soft Tissue Tightness PT-OP-N Lymphedema Start: 10/16/18 08:17 Freq: Status: Active Protocol: Document 11/18/18 11:54 GGD (Rec: 11/18/18 12:13 GGD [email or web address]) Lymphedema Measurements Upper Extremity Circumference Measurements Left Affected MCP 18.2 cm Wrist 16.1 cm 5 cm From Distal Crease 16.7 cm 10 cm From Distal Crease 19.4 cm 15 cm From Distal Crease 22.8 cm 20 cm From Distal Crease 25 cm 25 cm From Distal Crease 26.8 cm 30 cm From Distal Crease 29.6 cm 35 cm From Distal Crease 34 cm 40 cm From Distal Crease 37.2 cm 45 cm From Distal Crease 38.1 cm PT-OP-Q Treatments Start: 10/16/18 08:17 Freq: Status: Active Protocol: Document 12/17/18 08:00 [facility] (Rec: 12/18/18 17:05 [facility] [id number]) Therapeutic Exercises Supine Exercises wand shoulder Supine Exercise Name wand for abd and flexion Side left Reps/Minutes 3 Comments gentle 1 Supine Exercise Name Shoulder ROM, flexion and ER Comments gentle Sidelying Exercises 1 Sidelying Exercise Name Shoulder ROM, ABD, roll and reach Comments gentle, manual facil at trunk Sitting Exercises pulleys for shoulder flex Comments not done today but given information about obtaining pulleys for home use. Manual Therapy Treatment Soft Tissue Mobilization left anterior chest Body Location scar tissue Mobilization Type Myofascial Release Rolling Other Intensity/Depth Superficial Body Position Hooklying Taping left anterior chest Treatment Focus scar tissue Type of Tape Kinesio Tape Comments I strips for scar mobility; placed horizontally in scar region Lymphedema Treatment Manual Lymphatic Drainage Location left subaxillary region and UE Duration 30 min PT-OP-T Assessment and Plan Start: 10/16/18 08:17 Freq: Status: Active Protocol: Document 12/17/18 08:00 [email or web address] (Rec: 12/18/18 17:05 [facility] [id number]) Physical Therapy Assessment Goals 4 Impairment not able to participate in usual exercise activities Jail Goal (LTG) Patient able to resume prior exercise activities without an increase in lymphedema LTG Duration 01/16/19 3 Impairment decreased soft tissue mobility left chest Jail Goal (LTG) Improve soft tissue mobility left chest to WNL LTG Duration 01/16/19 2 Impairment decreased left shoulder ROM Short Term Goal (STG) Patient to be independent with HEP for purposes of improving left shoulder ROM STG Duration 10/31/18 [employer] [place] Goal (LTG) Patient will attain full functional ROM of her left shoulder to allow her to reach overhead for purposes of ADL' s and household activities LTG Duration 01/16/19 1 Impairment lymphedema left UE Jail Goal (LTG) Decrease lymphedema to stable level with no increase or decrease more than 1 cm over the course of 1 wk, patient to obtain appropriate compression garment and demonstrate good understanding of self-management including self-MLD and sequential lymphedema exercises LTG Duration 01/16/19 Assessment Summary Assessment Increased pain after lifting as above; cautioned to be more careful of activity. Improved scar mobility after treatment, min change in edema . Physical Therapy Plan Frequency and Duration Frequency of Treatment 2-3x/wk Duration of Treatment 12 wks Plan of Care Start Date 10/16/18 Plan of Care End Date 01/16/19 Therapeutic Interventions Therapeutic Interventions Aquatic Therapy Home Exercise Program Lymphedema Management Manual Therapy Patient/Caregiver Education Self-Care/Home Management Soft Tissue Mobilization Taping Therapeutic Activities Therapeutic Exercises Modalities Cold Pack/Ice Massage Next Visit Focus/Plan Next Note Type Treatment Note Next Visit Plan Continue treatment for lymphedema and soft tissue mobility, ther ex as tolerated .
--- NOTE | 2018-12-23 15:07 | PT.OTN ---
Current Diagnoses Personal history of malignant neoplasm of breast (12/23/18) Physical Therapy Treatment Note PT-OP-A Visit Information Start: 10/16/18 08:17 Freq: Status: Active Protocol: Document 12/23/18 15:03 GGD (Rec: 12/23/18 15:07 GGD [email or web address]) Out-Patient Physical Therapy Visit Information Visit Information Visit Type Treatment Note Visit Start Time 13:45 Visit Stop Time 14:55 Total Visit Minutes 70 Visit Number 9 Number of VOCATIONAL EVALUATOR Visits 1 Evaluation Information Evaluation Date 10/16/18 PT-OP-B Current Condition Start: 10/16/18 08:17 Freq: Status: Active Protocol: Document 10/16/18 14:36 SAK (Rec: 10/16/18 14:58 SAK [id number]) Current Condition History of Current Condition Onset Date mastectomy left 2016 Current Complaints lymphedema History of Current Condition Radiation, no chemo. December 2017 left chest felt swollen and warm, painful, didn't see MD until April. States physician noted adhesions of tissue left chest. Dr. Diaz : ice and Lidocaine patches; still using but warmth decreased some. LYmphedema left chest and subaxillary area. Wanted to go to gym for UE ex but hasn't started yet per physician recommendation. Future Testing and Treatments Planned MRI with possible biopsy Dr. Olivas 11/17/18 Treatment Goals Patient/Caregiver Goals Decrease edema and learn to self-manage lymphedema. Prior Functional Status Baseline Function- ADL's Independent Current Functional Impairments (Reported) Functional Limitations- ADL's difficult to reach overhead for ADL's and household activities PT-OP-C Subjective Start: 10/16/18 08:17 Freq: Status: Active Protocol: Document 12/23/18 15:03 GGD (Rec: 12/23/18 15:07 GGD [email or web address]) OP-PT Subjective Patient Comments Patient Comments Pt states the tape was making her a little sore, not sure why. PT-OP-J Posture/Palpation/Skin Start: 10/16/18 08:17 Freq: Status: Active Protocol: Document 10/16/18 16:29 SAK (Rec: 10/16/18 17:14 SAK [id number]) Posture Evaluation Position Sitting Head/C-Spine Posture Forward Head T-Spine Posture Increased Kyphosis Shoulder Posture (L) Forward (R) Forward Arm Posture (L) Internally Rotated (R) Internally Rotated Skin Assessment Other Assessments Skin Assessment Comments left chest region with reddened appearance and moderately severe fibrosis and adherent soft tissue with poor mobility. PT-OP-K Range of Motion Start: 10/16/18 08:17 Freq: Status: Active Protocol: Document 10/16/18 16:29 SAK (Rec: 10/16/18 17:14 SAK [id number]) Shoulder Goniometric Range of Motion Shoulder Active Shoulder ROM WFL Yes Testing Position Sitting Flexion 130 Extension 25 Abduction 132 Horizontal Abduction 0 External Rotation at 45 degrees 40 Abduction Internal Rotation Behind Back (text) WNL right Shoulder ROM WFL Yes Shoulder ROM Limitations Shoulder ROM Limitations Soft Tissue Tightness PT-OP-N Lymphedema Start: 10/16/18 08:17 Freq: Status: Active Protocol: Document 11/18/18 11:54 GGD (Rec: 11/18/18 12:13 GGD [email or web address]) Lymphedema Measurements Upper Extremity Circumference Measurements Left Affected MCP 18.2 cm Wrist 16.1 cm 5 cm From Distal Crease 16.7 cm 10 cm From Distal Crease 19.4 cm 15 cm From Distal Crease 22.8 cm 20 cm From Distal Crease 25 cm 25 cm From Distal Crease 26.8 cm 30 cm From Distal Crease 29.6 cm 35 cm From Distal Crease 34 cm 40 cm From Distal Crease 37.2 cm 45 cm From Distal Crease 38.1 cm PT-OP-Q Treatments Start: 10/16/18 08:17 Freq: Status: Active Protocol: Document 12/23/18 15:03 GGD (Rec: 12/23/18 15:07 GGD [email or web address]) Therapeutic Exercises Supine Exercises wand shoulder Supine Exercise Name wand for abd and flexion Side left Reps/Minutes 3 Comments gentle 1 Supine Exercise Name Shoulder ROM, flexion and ER Comments gentle Sidelying Exercises 1 Sidelying Exercise Name Shoulder ROM, ABD, roll and reach Comments gentle, manual facil at trunk Sitting Exercises pulleys for shoulder flex Reps/Minutes 10x Comments 3x end-range stretch with deep breathing. Manual Therapy Treatment Soft Tissue Mobilization left anterior chest Body Location scar tissue Mobilization Type Myofascial Release Rolling Other Intensity/Depth Superficial Body Position Hooklying Taping left anterior chest Treatment Focus scar tissue Type of Tape Kinesio Tape Comments I strips for scar mobility; placed horizontally in scar region Lymphedema Treatment Manual Lymphatic Drainage Location left subaxillary region and UE Duration 30 min PT-OP-T Assessment and Plan Start: 10/16/18 08:17 Freq: Status: Active Protocol: Document 12/23/18 15:03 GGD (Rec: 12/23/18 15:07 GGD [email or web address]) Physical Therapy Assessment Assessment Summary Assessment Pt improving with tissue mobility. She did have increase in tenderness near scar. She decrease in shoulder ROM. Physical Therapy Plan Frequency and Duration Frequency of Treatment 2-3x/wk Duration of Treatment 12 wks Plan of Care Start Date 10/16/18 Plan of Care End Date 01/16/19 Next Visit Focus/Plan Next Note Type Treatment Note Next Visit Plan Continue treatment for lymphedema and soft tissue mobility, ther ex as tolerated .
--- NOTE | 2018-12-30 08:17 | PT-OP ANOTE ---
Cancelled PT appointment due to being ill
--- NOTE | 2019-01-06 16:20 | PT.OTN ---
Current Diagnoses Personal history of malignant neoplasm of breast (01/06/19) Physical Therapy Treatment Note PT-OP-A Visit Information Start: 10/16/18 08:17 Freq: Status: Active Protocol: Document 01/06/19 13:50 GGD (Rec: 01/06/19 16:20 GGD [email or web address]) Out-Patient Physical Therapy Visit Information Visit Information Visit Type Treatment Note Visit Start Time 13:50 Visit Stop Time 15:00 Total Visit Minutes 70 Visit Number 10 Number of TAPE KELLER OPERATOR Visits 2 Evaluation Information Evaluation Date 10/16/18 PT-OP-B Current Condition Start: 10/16/18 08:17 Freq: Status: Active Protocol: Document 10/16/18 14:36 SAK (Rec: 10/16/18 14:58 SAK [id number]) Current Condition History of Current Condition Onset Date mastectomy left 2016 Current Complaints lymphedema History of Current Condition Radiation, no chemo. December 2017 left chest felt swollen and warm, painful, didn't see MD until April. States physician noted adhesions of tissue left chest. Dr. Diaz : ice and Lidocaine patches; still using but warmth decreased some. LYmphedema left chest and subaxillary area. Wanted to go to gym for UE ex but hasn't started yet per physician recommendation. Future Testing and Treatments Planned MRI with possible biopsy Dr. Olivas 11/17/18 Treatment Goals Patient/Caregiver Goals Decrease edema and learn to self-manage lymphedema. Prior Functional Status Baseline Function- ADL's Independent Current Functional Impairments (Reported) Functional Limitations- ADL's difficult to reach overhead for ADL's and household activities PT-OP-C Subjective Start: 10/16/18 08:17 Freq: Status: Active Protocol: Document 01/06/19 13:50 GGD (Rec: 01/06/19 16:20 GGD [email or web address]) OP-PT Subjective Patient Comments Patient Comments PT state she had increase in pain due to wearing bra more over the last week. PT-OP-J Posture/Palpation/Skin Start: 10/16/18 08:17 Freq: Status: Active Protocol: Document 10/16/18 16:29 SAK (Rec: 10/16/18 17:14 SAK [id number]) Posture Evaluation Position Sitting Head/C-Spine Posture Forward Head T-Spine Posture Increased Kyphosis Shoulder Posture (L) Forward (R) Forward Arm Posture (L) Internally Rotated (R) Internally Rotated Skin Assessment Other Assessments Skin Assessment Comments left chest region with reddened appearance and moderately severe fibrosis and adherent soft tissue with poor mobility. PT-OP-K Range of Motion Start: 10/16/18 08:17 Freq: Status: Active Protocol: Document 01/06/19 13:50 GGD (Rec: 01/06/19 16:20 GGD [email or web address]) Shoulder Goniometric Range of Motion Shoulder Active Shoulder ROM WFL Yes Testing Position Sitting Flexion 130 Extension 25 Abduction 132 Horizontal Abduction 0 External Rotation at 45 degrees 45 Abduction Internal Rotation Behind Back (text) WNL PT-OP-N Lymphedema Start: 10/16/18 08:17 Freq: Status: Active Protocol: Document 01/06/19 13:50 GGD (Rec: 01/06/19 16:20 GGD [email or web address]) Lymphedema Measurements Upper Extremity Circumference Measurements Left Affected MCP 18.3 cm Wrist 16 cm 5 cm From Distal Crease 16.9 cm 10 cm From Distal Crease 20.6 cm 15 cm From Distal Crease 23.8 cm 20 cm From Distal Crease 25 cm 25 cm From Distal Crease 27.6 cm 30 cm From Distal Crease 30.3 cm 35 cm From Distal Crease 34.5 cm 40 cm From Distal Crease 37.3 cm 45 cm From Distal Crease 38.3 cm PT-OP-Q Treatments Start: 10/16/18 08:17 Freq: Status: Active Protocol: Document 01/06/19 13:50 GGD (Rec: 01/06/19 16:20 GGD [email or web address]) Therapeutic Exercises Supine Exercises wand shoulder Supine Exercise Name wand for abd and flexion Side left Reps/Minutes 3 Comments gentle 1 Supine Exercise Name Shoulder ROM, flexion and ER Comments gentle Sidelying Exercises 1 Sidelying Exercise Name Shoulder ROM, ABD, roll and reach Comments gentle, manual facil at trunk Manual Therapy Treatment Soft Tissue Mobilization left anterior chest Body Location scar tissue Mobilization Type Myofascial Release Rolling Other Intensity/Depth Superficial Body Position Hooklying Taping left anterior chest Treatment Focus scar tissue Type of Tape Kinesio Tape Comments I strips for scar mobility; placed horizontally in scar region Lymphedema Treatment Manual Lymphatic Drainage Location left subaxillary region and UE Duration 30 min PT-OP-T Assessment and Plan Start: 10/16/18 08:17 Freq: Status: Active Protocol: Document 01/06/19 13:50 GGD (Rec: 01/06/19 16:20 GGD [email or web address]) Physical Therapy Assessment Goals 4 Impairment not able to participate in usual exercise activities Alf Goal (LTG) Patient able to resume prior exercise activities without an increase in lymphedema LTG Duration 01/16/19 3 Impairment decreased soft tissue mobility left chest Press Operator [employer] Goal (LTG) Improve soft tissue mobility left chest to WNL LTG Duration 01/16/19 2 Impairment decreased left shoulder ROM Short Term Goal (STG) Patient to be independent with HEP for purposes of improving left shoulder ROM (01/06/18: Progressing HEP.) STG Duration 10/31/18 Press Operator [employer] Goal (LTG) Patient will attain full functional ROM of her left shoulder to allow her to reach overhead for purposes of ADL' s and household activities LTG Duration 01/16/19 1 Impairment lymphedema left UE Press Operator [employer] Goal (LTG) Decrease lymphedema to stable level with no increase or decrease more than 1 cm over the course of 1 wk, patient to obtain appropriate compression garment and demonstrate good understanding of self-management including self-MLD and sequential lymphedema exercises LTG Duration 01/16/19 Assessment Summary Assessment Pt had increase tenderness to lateral scar with manual therapy. She improving slowly with shoulder ROM. Physical Therapy Plan Frequency and Duration Frequency of Treatment 2-3x/wk Duration of Treatment 12 wks Plan of Care Start Date 10/16/18 Plan of Care End Date 01/16/19 Next Visit Focus/Plan Next Note Type Treatment Note Next Visit Plan Continue treatment for lymphedema and soft tissue mobility, ther ex as tolerated .
--- NOTE | 2019-01-13 17:02 | PT.OTRE ---
Current Diagnoses Personal history of malignant neoplasm of breast (01/13/19) Past Medical History (Last Reviewed 12/20/18 @ 11:15 by Sylvie Roy DO) Anxiety (Chronic) Breast cancer, left breast (Chronic 2016) Diabetes mellitus (Chronic ~1987) GERD (gastroesophageal reflux disease) (Chronic) Hayfever (Chronic ~1959) Hyperlipidemia (Chronic ~1997) Hypertension (Chronic ~1997) Lumbar spine pain (Chronic) Osteopenia (Chronic) Osteoporosis (Chronic) Shoulder pain (Chronic 2014) Urinary incontinence (Chronic 2012) Breast cancer (Resolved 1992) Cataract (Resolved 2010) Chicken pox (Resolved) Fractures (Resolved) History of recurrent ear infection (Resolved) Hyperparathyroidism (Resolved 2013) Measles (Resolved) Sternal fracture (Resolved 2014) Vertigo (Resolved 2011) Surgical History (Last Reviewed 12/20/18 @ 11:15 by Sylvie Roy DO) Anesthesia complication (Resolved) H/O lumpectomy (Resolved) H/O mastectomy (Resolved) History of fusion of cervical spine (Resolved 2011) History of knee replacement (Resolved 2006) History of lumbar spinal fusion (Resolved 2009) History of lumbar spinal fusion (Resolved) Provider Visit Care Team Role Provider Type Sylvie Roy DO Primary Care Provider Physician Specialty: Family Practice Address: [address] [place] [address] Email: [email or web address] Maki Vides MD Attending Provider Physician Specialty: General Surgery Address: [address] [place] [address] Email: [email or web address] Physical Therapy Re-Evaluation PT-OP-A Visit Information Start: 10/16/18 08:17 Freq: Status: Active Protocol: Document 01/13/19 08:15 VIKKI (Rec: 01/13/19 17:01 VIKKI [id number]) Out-Patient Physical Therapy Visit Information Visit Information Visit Type Treatment Note Visit Start Time 13:50 Visit Stop Time 15:00 Total Visit Minutes 70 Visit Number 11 Number of SERVICING MANAGER Visits 2 Evaluation Information Evaluation Date 10/16/18 PT-OP-B Current Condition Start: 10/16/18 08:17 Freq: Status: Active Protocol: Document 10/16/18 14:36 [facility] (Rec: 10/16/18 14:58 [facility] [id number]) Current Condition History of Current Condition Onset Date mastectomy left 2017 Current Complaints lymphedema History of Current Condition Radiation, no chemo. December 2017 left chest felt swollen and warm, painful, didn't see MD until April. States physician noted adhesions of tissue left chest. Dr. Diaz : ice and Lidocaine patches; still using but warmth decreased some. LYmphedema left chest and subaxillary area. Wanted to go to gym for UE ex but hasn't started yet per physician recommendation. Future Testing and Treatments Planned MRI with possible biopsy Dr. Olivas 11/17/18 Treatment Goals Patient/Caregiver Goals Decrease edema and learn to self-manage lymphedema. Prior Functional Status Baseline Function- ADL's Independent Current Functional Impairments (Reported) Functional Limitations- ADL's difficult to reach overhead for ADL's and household activities PT-OP-C Subjective Start: 10/16/18 08:17 Freq: Status: Active Protocol: Document 01/13/19 08:15 [facility] (Rec: 01/13/19 17:01 [facility] [id number]) OP-PT Subjective Patient Comments Patient Comments No new c/o, continues to feel she is improving. PT-OP-J Posture/Palpation/Skin Start: 10/16/18 08:17 Freq: Status: Active Protocol: Document 10/16/18 16:29 [facility] (Rec: 10/16/18 17:14 [facility] [id number]) Posture Evaluation Position Sitting Head/C-Spine Posture Forward Head T-Spine Posture Increased Kyphosis Shoulder Posture (L) Forward (R) Forward Arm Posture (L) Internally Rotated (R) Internally Rotated Skin Assessment Other Assessments Skin Assessment Comments left chest region with reddened appearance and moderately severe fibrosis and adherent soft tissue with poor mobility. PT-OP-K Range of Motion Start: 10/16/18 08:17 Freq: Status: Active Protocol: Document 01/13/19 08:15 [facility] (Rec: 01/13/19 17:01 [facility] [id number]) Shoulder Goniometric Range of Motion Shoulder Measured in Degrees Active Shoulder ROM WFL Yes Testing Position Sitting Flexion 130 Extension 25 Abduction 132 Horizontal Abduction 0 External Rotation at 45 degrees 45 Abduction Internal Rotation Behind Back (text) WNL PT-OP-N Lymphedema Start: 10/16/18 08:17 Freq: Status: Active Protocol: Document 01/13/19 08:15 [facility] (Rec: 01/13/19 17:01 [facility] [id number]) Lymphedema Measurements Upper Extremity Circumference Measurements Left Affected MCP 18.3 cm Wrist 16 cm 5 cm From Distal Crease 16.9 cm 10 cm From Distal Crease 20.6 cm 15 cm From Distal Crease 23.8 cm 20 cm From Distal Crease 25 cm 25 cm From Distal Crease 27.6 cm 30 cm From Distal Crease 30.3 cm 35 cm From Distal Crease 34.5 cm 40 cm From Distal Crease 37.3 cm 45 cm From Distal Crease 38.3 cm PT-OP-Q Treatments Start: 10/16/18 08:17 Freq: Status: Active Protocol: Document 01/13/19 08:15 [facility] (Rec: 01/13/19 17:01 [facility] [id number]) Therapeutic Exercises Supine Exercises wand shoulder Supine Exercise Name wand for abd and flexion Side left Reps/Minutes 3 Comments gentle 1 Supine Exercise Name Shoulder ROM, flexion and ER Comments gentle Sidelying Exercises 1 Sidelying Exercise Name Shoulder ROM, ABD, roll and reach Comments gentle, manual facil at trunk Sitting Exercises pulleys for shoulder flex Reps/Minutes 10x Comments 3x end-range stretch with deep breathing. Manual Therapy Treatment Soft Tissue Mobilization left anterior chest Body Location scar tissue Mobilization Type Myofascial Release Rolling Other Intensity/Depth Superficial Body Position Hooklying Taping left anterior chest Treatment Focus scar tissue Type of Tape Kinesio Tape Comments I strips for scar mobility; placed horizontally in scar region Lymphedema Treatment Manual Lymphatic Drainage Location left subaxillary region and UE Duration 30 min PT-OP-T Assessment and Plan Start: 10/16/18 08:17 Freq: Status: Active Protocol: Document 01/13/19 08:15 [facility] (Rec: 01/13/19 17:01 [facility] [id number]) Physical Therapy Assessment Goals 4 Impairment not able to participate in usual exercise activities Halfway Goal (LTG) Patient able to resume prior exercise activities without an increase in lymphedema 01/13/19: gradually increasing her activity level, has not been able to return to all activirties. LTG Duration 03/14/19 3 Impairment decreased soft tissue mobility left chest Halfway Goal (LTG) Improve soft tissue mobility left chest to WNL 01/13/19: goal progress LTG Duration 03/14/19 2 Impairment decreased left shoulder ROM Short Term Goal (STG) Patient to be independent with HEP for purposes of improving left shoulder ROM (01/06/18: Progressing HEP.) STG Duration goal met Chute Builder Goal (LTG) Patient will attain full functional ROM of her left shoulder to allow her to reach overhead for purposes of ADL' s and household activities 01/13/19: goal progress LTG Duration 03/14/19 1 Impairment lymphedema left UE Halfway Goal (LTG) Decrease lymphedema to stable level with no increase or decrease more than 1 cm over the course of 1 wk, patient to obtain appropriate compression garment and demonstrate good understanding of self-management including self-MLD and sequential lymphedema exercises 01/13/19: good goal progress LTG Duration 03/14/19 Assessment Summary Assessment Patient is making good progress toward all goal areas , though slow due to extensive radiation effects in anterior chest. Recommend continued skilled PT to help her achieve all goals. Physical Therapy Plan Frequency and Duration Frequency of Treatment 2-3x/wk Duration of Treatment 12 wks Plan of Care Start Date 01/13/19 Plan of Care End Date 03/14/19 Therapeutic Interventions Therapeutic Interventions Aquatic Therapy Home Exercise Program Lymphedema Management Manual Therapy Patient/Caregiver Education Self-Care/Home Management Soft Tissue Mobilization Taping Therapeutic Activities Therapeutic Exercises Modalities Cold Pack/Ice Massage Next Visit Focus/Plan Next Note Type Treatment Note Next Visit Plan Continue treatment for lymphedema and soft tissue mobility, ther ex as tolerated .
--- NOTE | 2019-01-13 17:02 | PT.OPPOC ---
Current Diagnoses Personal history of malignant neoplasm of breast (01/13/19) Provider Visit Care Team Role Provider Type Sylvie Roy DO Primary Care Provider Physician Specialty: Family Practice Address: [facility] [place], [address] Email: [email or web address] Maki Vides MD Attending Provider Physician Specialty: General Surgery Address: [address] [place] [address], [id number] Email: [email or web address] Plan Of Care PT-OP-T Assessment and Plan Start: 10/16/18 08:17 Freq: Status: Active Protocol: Document 01/13/19 08:15 [facility] (Rec: 01/13/19 17:01 [facility] [id number]) Physical Therapy Assessment Goals 4 Impairment not able to participate in usual exercise activities [facility] Goal (LTG) Patient able to resume prior exercise activities without an increase in lymphedema 01/13/19: gradually increasing her activity level, has not been able to return to all activirties. LTG Duration 03/14/19 3 Impairment decreased soft tissue mobility left chest Cab Worker Goal (LTG) Improve soft tissue mobility left chest to WNL 01/13/19: goal progress LTG Duration 03/14/19 2 Impairment decreased left shoulder ROM Short Term Goal (STG) Patient to be independent with HEP for purposes of improving left shoulder ROM (01/06/18: Progressing HEP.) STG Duration goal met Cab Worker Goal (LTG) Patient will attain full functional ROM of her left shoulder to allow her to reach overhead for purposes of ADL' s and household activities 01/13/19: goal progress LTG Duration 03/14/19 1 Impairment lymphedema left UE [facility] Goal (LTG) Decrease lymphedema to stable level with no increase or decrease more than 1 cm over the course of 1 wk, patient to obtain appropriate compression garment and demonstrate good understanding of self-management including self-MLD and sequential lymphedema exercises 01/13/19: good goal progress LTG Duration 03/14/19 Assessment Summary Assessment Patient is making good progress toward all goal areas , though slow due to extensive radiation effects in anterior chest. Recommend continued skilled PT to help her achieve all goals. Physical Therapy Plan Frequency and Duration Frequency of Treatment 2-3x/wk Duration of Treatment 12 wks Plan of Care Start Date 01/13/19 Plan of Care End Date 03/14/19 Therapeutic Interventions Therapeutic Interventions Aquatic Therapy Home Exercise Program Lymphedema Management Manual Therapy Patient/Caregiver Education Self-Care/Home Management Soft Tissue Mobilization Taping Therapeutic Activities Therapeutic Exercises Modalities Cold Pack/Ice Massage Next Visit Focus/Plan Next Note Type Treatment Note Next Visit Plan Continue treatment for lymphedema and soft tissue mobility, ther ex as tolerated . Plan of Care Dates Plan of Care Start Date 01/13/19 Plan of Care End Date 03/14/19 Please Sign and Return: I have reviewed this Plan of Care and certify that the skilled therapy services above are required to meet the patient?s needs. Physician Signature Date Printed Name and Credentials Clinical Instructor Signature Printed Name and Credentials
--- NOTE | 2019-01-20 09:59 | PT.OTN ---
Current Diagnoses Personal history of malignant neoplasm of breast (01/20/19) Physical Therapy Treatment Note PT-OP-A Visit Information Start: 10/16/18 08:17 Freq: Status: Active Protocol: Document 01/20/19 09:56 [facility] (Rec: 01/20/19 09:59 [facility] [id number]) Out-Patient Physical Therapy Visit Information Visit Information Visit Type Treatment Note Visit Start Time 09:00 Visit Stop Time 09:55 Total Visit Minutes 55 Visit Number 12 Number of SKILLS AUDITOR Visits 1 Evaluation Information Evaluation Date 10/16/18 PT-OP-B Current Condition Start: 10/16/18 08:17 Freq: Status: Active Protocol: Document 10/16/18 14:36 [facility] (Rec: 10/16/18 14:58 [facility] [id number]) Current Condition History of Current Condition Onset Date mastectomy left 2016 Current Complaints lymphedema History of Current Condition Radiation, no chemo. December 2017 left chest felt swollen and warm, painful, didn't see MD until April. States physician noted adhesions of tissue left chest. Dr. Diaz : ice and Lidocaine patches; still using but warmth decreased some. LYmphedema left chest and subaxillary area. Wanted to go to gym for UE ex but hasn't started yet per physician recommendation. Future Testing and Treatments Planned MRI with possible biopsy Dr. Olivas 11/17/18 Treatment Goals Patient/Caregiver Goals Decrease edema and learn to self-manage lymphedema. Prior Functional Status Baseline Function- ADL's Independent Current Functional Impairments (Reported) Functional Limitations- ADL's difficult to reach overhead for ADL's and household activities PT-OP-C Subjective Start: 10/16/18 08:17 Freq: Status: Active Protocol: Document 01/20/19 09:56 [facility]GD (Rec: 01/20/19 09:59 [facility]GD [id number]) OP-PT Subjective Patient Comments Patient Comments Pt states she had some pain after lifting laundry basket. PT-OP-J Posture/Palpation/Skin Start: 10/16/18 08:17 Freq: Status: Active Protocol: Document 10/16/18 16:29 [facility] (Rec: 10/16/18 17:14 [facility] [id number]) Posture Evaluation Position Sitting Head/C-Spine Posture Forward Head T-Spine Posture Increased Kyphosis Shoulder Posture (L) Forward (R) Forward Arm Posture (L) Internally Rotated (R) Internally Rotated Skin Assessment Other Assessments Skin Assessment Comments left chest region with reddened appearance and moderately severe fibrosis and adherent soft tissue with poor mobility. PT-OP-K Range of Motion Start: 10/16/18 08:17 Freq: Status: Active Protocol: Document 01/13/19 08:15 [facility] (Rec: 01/13/19 17:01 [facility] [id number]) Shoulder Goniometric Range of Motion Shoulder Active Shoulder ROM WFL Yes Testing Position Sitting Flexion 130 Extension 25 Abduction 132 Horizontal Abduction 0 External Rotation at 45 degrees 45 Abduction Internal Rotation Behind Back (text) WNL PT-OP-N Lymphedema Start: 10/16/18 08:17 Freq: Status: Active Protocol: Document 01/13/19 08:15 [facility] (Rec: 01/13/19 17:01 [facility] [id number]) Lymphedema Measurements Upper Extremity Circumference Measurements Left Affected MCP 18.3 cm Wrist 16 cm 5 cm From Distal Crease 16.9 cm 10 cm From Distal Crease 20.6 cm 15 cm From Distal Crease 23.8 cm 20 cm From Distal Crease 25 cm 25 cm From Distal Crease 27.6 cm 30 cm From Distal Crease 30.3 cm 35 cm From Distal Crease 34.5 cm 40 cm From Distal Crease 37.3 cm 45 cm From Distal Crease 38.3 cm PT-OP-Q Treatments Start: 10/16/18 08:17 Freq: Status: Active Protocol: Document 01/20/19 09:56 [facility]GD (Rec: 01/20/19 09:59 [facility]GD [id number]) Therapeutic Exercises Supine Exercises 1 Supine Exercise Name Shoulder ROM, flexion and ER Comments gentle Manual Therapy Treatment Soft Tissue Mobilization left anterior chest Body Location scar tissue Mobilization Type Myofascial Release Rolling Other Intensity/Depth Superficial Body Position Hooklying Taping left anterior chest Treatment Focus scar tissue Type of Tape Kinesio Tape Comments I strips for scar mobility; placed horizontally in scar region Lymphedema Treatment Manual Lymphatic Drainage Location left subaxillary region and UE Duration 30 min PT-OP-T Assessment and Plan Start: 10/16/18 08:17 Freq: Status: Active Protocol: Document 01/20/19 09:56 GGD (Rec: 01/20/19 09:59 GGD [id number]) Physical Therapy Assessment Assessment Summary Assessment Pt improving with scar mobility. She is limited in shoulder ROM and strength. Physical Therapy Plan Frequency and Duration Frequency of Treatment 2-3x/wk Duration of Treatment 12 wks Plan of Care Start Date 01/13/19 Plan of Care End Date 03/14/19 Next Visit Focus/Plan Next Note Type Treatment Note Next Visit Plan Continue treatment for lymphedema and soft tissue mobility, ther ex as tolerated .
--- NOTE | 2019-01-27 16:37 | PT.OTN ---
Current Diagnoses Personal history of malignant neoplasm of breast (01/27/19) Physical Therapy Treatment Note PT-OP-A Visit Information Start: 10/16/18 08:17 Freq: Status: Active Protocol: Document 01/27/19 16:29 [facility] (Rec: 01/27/19 16:37 [facility] [id number]) Out-Patient Physical Therapy Visit Information Visit Information Visit Type Treatment Note Visit Start Time 13:00 Visit Stop Time 14:12 Total Visit Minutes 72 Visit Number 13 Number of BOW MACHINE OPERATOR Visits 0 Evaluation Information Evaluation Date 10/16/18 PT-OP-B Current Condition Start: 10/16/18 08:17 Freq: Status: Active Protocol: Document 10/16/18 14:36 [facility] (Rec: 10/16/18 14:58 [facility] [id number]) Current Condition History of Current Condition Onset Date mastectomy left 2016 Current Complaints lymphedema History of Current Condition Radiation, no chemo. December 2017 left chest felt swollen and warm, painful, didn't see MD until April. States physician noted adhesions of tissue left chest. Dr. Diaz : ice and Lidocaine patches; still using but warmth decreased some. LYmphedema left chest and subaxillary area. Wanted to go to gym for UE ex but hasn't started yet per physician recommendation. Future Testing and Treatments Planned MRI with possible biopsy Dr. Olivas 11/17/18 Treatment Goals Patient/Caregiver Goals Decrease edema and learn to self-manage lymphedema. Prior Functional Status Baseline Function- ADL's Independent Current Functional Impairments (Reported) Functional Limitations- ADL's difficult to reach overhead for ADL's and household activities PT-OP-C Subjective Start: 10/16/18 08:17 Freq: Status: Active Protocol: Document 01/27/19 16:29 [facility] (Rec: 01/27/19 16:37 [facility] [id number]) OP-PT Subjective Patient Comments Patient Comments REports seeing her doctor for back pain which is limiting her activity tolerance. Wants to discuss compression sleeve further. PT-OP-J Posture/Palpation/Skin Start: 10/16/18 08:17 Freq: Status: Active Protocol: Document 10/16/18 16:29 [facility] (Rec: 10/16/18 17:14 [facility] [id number]) Posture Evaluation Position Sitting Head/C-Spine Posture Forward Head T-Spine Posture Increased Kyphosis Shoulder Posture (L) Forward (R) Forward Arm Posture (L) Internally Rotated (R) Internally Rotated Skin Assessment Other Assessments Skin Assessment Comments left chest region with reddened appearance and moderately severe fibrosis and adherent soft tissue with poor mobility. PT-OP-K Range of Motion Start: 10/16/18 08:17 Freq: Status: Active Protocol: Document 01/13/19 08:15 [facility] (Rec: 01/13/19 17:01 [facility] [id number]) Shoulder Goniometric Range of Motion Shoulder Active Shoulder ROM WFL Yes Testing Position Sitting Flexion 130 Extension 25 Abduction 132 Horizontal Abduction 0 External Rotation at 45 degrees 45 Abduction Internal Rotation Behind Back (text) WNL PT-OP-N Lymphedema Start: 10/16/18 08:17 Freq: Status: Active Protocol: Document 01/13/19 08:15 [facility] (Rec: 01/13/19 17:01 [facility] [id number]) Lymphedema Measurements Upper Extremity Circumference Measurements Left Affected MCP 18.3 cm Wrist 16 cm 5 cm From Distal Crease 16.9 cm 10 cm From Distal Crease 20.6 cm 15 cm From Distal Crease 23.8 cm 20 cm From Distal Crease 25 cm 25 cm From Distal Crease 27.6 cm 30 cm From Distal Crease 30.3 cm 35 cm From Distal Crease 34.5 cm 40 cm From Distal Crease 37.3 cm 45 cm From Distal Crease 38.3 cm PT-OP-Q Treatments Start: 10/16/18 08:17 Freq: Status: Active Protocol: Document 01/27/19 16:29 [facility] (Rec: 01/27/19 16:37 [facility] [id number]) Therapeutic Exercises Supine Exercises wand shoulder Supine Exercise Name wand for abd and flexion Side left Reps/Minutes 3 Comments gentle 1 Supine Exercise Name Shoulder ROM, flexion and ER, hor ab Comments AAROM, end-range stretching Sitting Exercises pulleys for shoulder flex Sitting Exercise Name flexion and scaption Reps/Minutes 10x Comments 3x end-range stretch with deep breathing. Manual Therapy Treatment Soft Tissue Mobilization left anterior chest Body Location scar tissue Mobilization Type Myofascial Release Rolling Other Intensity/Depth Superficial Body Position Hooklying Comments review of technique with patient for self-massage Taping left anterior chest Treatment Focus scar tissue Type of Tape Kinesio Tape Comments I strips for scar mobility; placed horizontally in scar region Other Other Manual Treatments measurements taken for compression sleeve, patient to explore options online. Lymphedema Treatment Manual Lymphatic Drainage Location left subaxillary region and UE Duration 30 min PT-OP-T Assessment and Plan Start: 10/16/18 08:17 Freq: Status: Active Protocol: Document 01/27/19 16:29 [facility] (Rec: 01/27/19 16:37 [facility] [id number]) Physical Therapy Assessment Goals 4 Impairment not able to participate in usual exercise activities Residential Goal (LTG) Patient able to resume prior exercise activities without an increase in lymphedema 01/13/19: gradually increasing her activity level, has not been able to return to all activirties. LTG Duration 03/14/19 3 Impairment decreased soft tissue mobility left chest Residential Goal (LTG) Improve soft tissue mobility left chest to WNL 01/13/19: goal progress LTG Duration 03/14/19 2 Impairment decreased left shoulder ROM Short Term Goal (STG) Patient to be independent with HEP for purposes of improving left shoulder ROM (01/06/18: Progressing HEP.) STG Duration goal met Supervisor [employer] Goal (LTG) Patient will attain full functional ROM of her left shoulder to allow her to reach overhead for purposes of ADL' s and household activities 01/13/19: goal progress LTG Duration 03/14/19 1 Impairment lymphedema left UE Residential Goal (LTG) Decrease lymphedema to stable level with no increase or decrease more than 1 cm over the course of 1 wk, patient to obtain appropriate compression garment and demonstrate good understanding of self-management including self-MLD and sequential lymphedema exercises 01/13/19: good goal progress LTG Duration 03/14/19 Assessment Summary Assessment Patient demonstrates good understanding of tecfhniques for self-massage. ROM improving though with some impingement signs and symptoms . Physical Therapy Plan Frequency and Duration Frequency of Treatment 2-3x/wk Duration of Treatment 12 wks Plan of Care Start Date 01/13/19 Plan of Care End Date 03/14/19 Therapeutic Interventions Therapeutic Interventions Aquatic Therapy Home Exercise Program Lymphedema Management Manual Therapy Patient/Caregiver Education Self-Care/Home Management Soft Tissue Mobilization Taping Therapeutic Activities Therapeutic Exercises Modalities Cold Pack/Ice Massage Next Visit Focus/Plan Next Note Type Treatment Note Next Visit Plan Add RC ex including rows, shoulder extension, ER due to impingement symptoms left shoulder.
--- NOTE | 2019-02-05 17:56 | PT.OTRE ---
Current Diagnoses Stiffness of unspecified hip, not elsewhere classified (02/05/19) Lumbago with sciatica, unspecified side (02/05/19) Muscle weakness (generalized) (02/05/19) Pain in right leg (02/05/19) Pain in left leg (02/05/19) Personal history of malignant neoplasm of breast (02/05/19) Past Medical History (Last Reviewed 01/22/19 @ 08:55 by ALEXSANDER Craig) Anxiety (Chronic) Breast cancer (Resolved 1992) Breast cancer, left breast (Chronic 2016) Cataract (Resolved 2010) Chicken pox (Resolved) Diabetes mellitus (Chronic ~1987) Fractures (Resolved) GERD (gastroesophageal reflux disease) (Chronic) Hayfever (Chronic ~1959) History of recurrent ear infection (Resolved) Hyperlipidemia (Chronic ~1997) Hyperparathyroidism (Resolved 2013) Hypertension (Chronic ~1997) Lumbar spine pain (Chronic) Measles (Resolved) Osteopenia (Chronic) Osteoporosis (Chronic) Shoulder pain (Chronic 2014) Sternal fracture (Resolved 2014) Urinary incontinence (Chronic 2012) Vertigo (Resolved 2011) Surgical History (Last Reviewed 01/22/19 @ 08:55 by ALEXSANDER Craig) Anesthesia complication (Resolved) H/O lumpectomy (Resolved) H/O mastectomy (Resolved) History of fusion of cervical spine (Resolved 2011) History of knee replacement (Resolved 2006) History of lumbar spinal fusion (Resolved 2009) History of lumbar spinal fusion (Resolved) Visit Care Team Role Provider Type Sylvie Ryo DO Primary Care Provider Physician Specialty: Family Practice Address: [address] [place] [address], [id number] Email: [email or web address] Maki Vides MD Attending Provider Non-Staff Specialty: General Surgery Address: [address] [place] [address], [id number] Email: [email or web address] Physical Therapy Re-Evaluation PT-OP-A Visit Information Start: 10/16/18 08:17 Freq: Status: Active Protocol: Document 02/05/19 09:45 DCW (Rec: 02/05/19 17:56 DCW [id number]) Out-Patient Physical Therapy Visit Information Visit Information Visit Type Re-Evaluation Visit Start Time 09:45 Visit Stop Time 10:30 Total Visit Minutes 45 Visit Number 14 Number of CAST IRON DIPPER Visits 0 Evaluation Information Evaluation Date 10/16/18 PT-OP-B Current Condition Start: 10/16/18 08:17 Freq: Status: Active Protocol: Document 02/05/19 09:45 DCW (Rec: 02/05/19 17:44 DCW [id number]) Current Condition History of Current Condition Onset Date mastectomy left 2017 Current Complaints lymphedema History of Current Condition Radiation, no chemo. December 2017 left chest felt swollen and warm, painful, didn't see MD until April. States physician noted adhesions of tissue left chest. Dr. Diaz : ice and Lidocaine patches; still using but warmth decreased some. LYmphedema left chest and subaxillary area. Wanted to go to gym for UE ex but hasn't started yet per physician recommendation. ADDENDUM 02/05/19: Pt arrives with a new referral for her low back. Pt reports that one year ago, she had a nerve root impingement, and went to Dr Yoder. Following a caudal injection, she felt much better, however it is now beginning to wear off, and she is getting severe low back pain with radicular symptoms bilaterally, as well as muscle spasm through her low back and hips. Pt reports she has plans for another injection, however she was told it would also be helpful to attend 2-3 therapy sessions to learn some home stretches to decrease her muscle tone. Notes her pain is worst when first getting up in the morning. Future Testing and Treatments Planned MRI with possible biopsy Dr. Olivas 11/17/18 PT-OP-C Subjective Start: 10/16/18 08:17 Freq: Status: Active Protocol: Document 02/05/19 09:45 DCW (Rec: 02/05/19 17:56 DCW [id number]) OP-PT Subjective Patient Comments Patient Comments Getting up in the morning is when the pain is the absolute worst. PT-OP-F Manual Assessment Start: 10/16/18 08:17 Freq: Status: Active Protocol: Document 02/05/19 09:45 DCW (Rec: 02/05/19 17:44 DCW [id number]) Manual Assessments Soft Tissue Assessment Soft Tissue Mobility Assessment Tenderness to palpation 3/4: Wincing and withdraw QL, Piriformis, and ITB, R>L PT-OP-J Posture/Palpation/Skin Start: 10/16/18 08:17 Freq: Status: Active Protocol: Document 10/16/18 16:29 SAK (Rec: 10/16/18 17:14 SAK [id number]) Posture Evaluation Position Sitting Head/C-Spine Posture Forward Head T-Spine Posture Increased Kyphosis Shoulder Posture (L) Forward,(R) Forward Arm Posture (L) Internally Rotated,(R) Internally Rotated Skin Assessment Other Assessments Skin Assessment Comments left chest region with reddened appearance and moderately severe fibrosis and adherent soft tissue with poor mobility. PT-OP-K Range of Motion Start: 10/16/18 08:17 Freq: Status: Active Protocol: Document 02/05/19 09:45 DCW (Rec: 02/05/19 17:44 DCW [id number]) Lumbar Spine Range of Motion Lumbar Spine Active Degrees Testing Position Standing Flexion 40 Extension 15 Lateral Flexion Left 49 Lateral Flexion Right 48 Comments Lateral flexion measured in cm from floor to finger tips PT-OP-L Special Tests Start: 10/16/18 08:17 Freq: Status: Active Protocol: Document 02/05/19 09:45 DCW (Rec: 02/05/19 17:44 DCW [id number]) Special Tests Lumbar Spine Special Tests Standing Flexion Test Results Increased pain and stiffness Straight Leg Raise Test Results Positive ipsilateral pain Slump Test Results Positive bilaterally Hip Special Tests Farooq's test Test Results Positive bilaterally Piriformis Test Results Positive bilaterally PT-OP-M Strength Start: 10/16/18 08:17 Freq: Status: Active Protocol: Document 02/05/19 09:45 DCW (Rec: 02/05/19 17:44 DCW [id number]) Hip Strength Hip Manual Muscle Testing Bilateral Flexion (L2) 4- Good- Abduction 4+ Good+ Adduction 4+ Good+ External Rotation 4 Good Internal Rotation 4 Good Knee Strength Knee Manual Muscle Testing Bilateral Flexion (S2) 4- Good- Extension (L3) 4+ Good+ PT-OP-N Lymphedema Start: 10/16/18 08:17 Freq: Status: Active Protocol: Document 01/13/19 08:15 SAK (Rec: 01/13/19 17:01 SAK [id number]) Lymphedema Measurements Upper Extremity Circumference Measurements Left Affected MCP 18.3 cm Wrist 16 cm 5 cm From Distal Crease 16.9 cm 10 cm From Distal Crease 20.6 cm 15 cm From Distal Crease 23.8 cm 20 cm From Distal Crease 25 cm 25 cm From Distal Crease 27.6 cm 30 cm From Distal Crease 30.3 cm 35 cm From Distal Crease 34.5 cm 40 cm From Distal Crease 37.3 cm 45 cm From Distal Crease 38.3 cm PT-OP-Q Treatments Start: 10/16/18 08:17 Freq: Status: Active Protocol: Document 02/05/19 09:45 DCW (Rec: 02/05/19 17:56 DCW [id number]) Therapeutic Exercises Supine Exercises 3 Supine Exercise Name Hoyk-ze-Gsiyelmo shoulder piriformis stretch Side bilateral Reps/Minutes 30 hold 2 Supine Exercise Name ITB stretch Side bilateral Equipment Used strap Reps/Minutes 30 hold Sitting Exercises 1 Sitting Exercise Name Seated lumbar flexion stretch PT-OP-T Assessment and Plan Start: 10/16/18 08:17 Freq: Status: Active Protocol: Document 02/05/19 09:45 DCW (Rec: 02/05/19 17:56 DCW [id number]) Physical Therapy Assessment Impairments Impairments Edema,Functional Activities, Pain,Posture,ROM,Soft Tissue Mobility,Tone Goals 5 Impairment Pt does not have an appropriate HEP for low back pain Short Term Goal (STG) Pt to be independent and compliant with an appropriate lumbar HEP STG Duration 03/07/19 4 Impairment not able to participate in usual exercise activities Drum Tester Goal (LTG) Patient able to resume prior exercise activities without an increase in lymphedema 01/13/19: gradually increasing her activity level, has not been able to return to all activirties. LTG Duration 03/14/19 3 Impairment decreased soft tissue mobility left chest Senior Living Goal (LTG) Improve soft tissue mobility left chest to WNL 01/13/19: goal progress LTG Duration 03/14/19 2 Impairment decreased left shoulder ROM Short Term Goal (STG) Patient to be independent with HEP for purposes of improving left shoulder ROM (01/06/18: Progressing HEP.) STG Duration goal met Drum Tester Goal (LTG) Patient will attain full functional ROM of her left shoulder to allow her to reach overhead for purposes of ADL' s and household activities 01/13/19: goal progress LTG Duration 03/14/19 1 Impairment lymphedema left UE Senior Living Goal (LTG) Decrease lymphedema to stable level with no increase or decrease more than 1 cm over the course of 1 wk, patient to obtain appropriate compression garment and demonstrate good understanding of self-management including self-MLD and sequential lymphedema exercises 01/13/19: good goal progress LTG Duration 03/14/19 Assessment Summary Assessment Pt shows signs and symptoms consistent with her referring diagnosis of nerve root impingement. Pt exhibits severe radicular pain and cramping from her lumbar spine down her bilateral legs, R>L. Pt also exhibits increased tone in her QL, piriformis, and ITB bilaterally. per her new referral, pt should undergo skilled therapy for 1- 3 sessions to address these impairments and obtain an appropriate HEP prior to a second caudal injection. In the mean time, pt should also continue her current skilled therapy focusing on her lymphedema following left mastectomy Physical Therapy Plan Frequency and Duration Frequency of Treatment 2-3x/wk Duration of Treatment 12 wks Plan of Care Start Date 02/05/19 Plan of Care End Date 04/30/19 Therapeutic Interventions Therapeutic Interventions Aquatic Therapy,Home Exercise Program,Lymphedema Management, Manual Therapy,Patient/ Caregiver Education,Self-Care/ Home Management,Soft Tissue Mobilization,Taping, Therapeutic Activities, Therapeutic Exercises Modalities Cold Pack/Ice Massage Next Visit Focus/Plan Next Note Type Treatment Note Next Visit Plan Assess effectiveness of new lumbar HEP, continue lymphedema treatment
--- NOTE | 2019-02-05 17:58 | PT.OPPOC ---
Current Diagnoses Stiffness of unspecified hip, not elsewhere classified (02/05/19) Lumbago with sciatica, unspecified side (02/05/19) Muscle weakness (generalized) (02/05/19) Pain in right leg (02/05/19) Pain in left leg (02/05/19) Personal history of malignant neoplasm of breast (02/05/19) Visit Care Team Role Provider Type Sylvie Roy DO Primary Care Provider Physician Specialty: Family Practice Address: [address] [place] [address], [address], [place], [address] Email: [email or web address] Maki Vides MD Attending Provider Non-Staff Specialty: General Surgery Address: [address] [place] [address], [id number] Email: [email or web address] Plan Of Care PT-OP-T Assessment and Plan Start: 10/16/18 08:17 Freq: Status: Active Protocol: Document 02/05/19 09:45 DCW (Rec: 02/05/19 17:56 DCW [id number]) Physical Therapy Assessment Impairments Impairments Edema,Functional Activities, Pain,Posture,ROM,Soft Tissue Mobility,Tone Goals 5 Impairment Pt does not have an appropriate HEP for low back pain Short Term Goal (STG) Pt to be independent and compliant with an appropriate lumbar HEP STG Duration 03/07/19 4 Impairment not able to participate in usual exercise activities Automotive Machinist Goal (LTG) Patient able to resume prior exercise activities without an increase in lymphedema 01/13/19: gradually increasing her activity level, has not been able to return to all activirties. LTG Duration 03/14/19 3 Impairment decreased soft tissue mobility left chest Automotive Machinist Goal (LTG) Improve soft tissue mobility left chest to WNL 01/13/19: goal progress LTG Duration 03/14/19 2 Impairment decreased left shoulder ROM Short Term Goal (STG) Patient to be independent with HEP for purposes of improving left shoulder ROM (01/06/18: Progressing HEP.) STG Duration goal met Detention Goal (LTG) Patient will attain full functional ROM of her left shoulder to allow her to reach overhead for purposes of ADL' s and household activities 01/13/19: goal progress LTG Duration 03/14/19 1 Impairment lymphedema left UE Automotive Machinist Goal (LTG) Decrease lymphedema to stable level with no increase or decrease more than 1 cm over the course of 1 wk, patient to obtain appropriate compression garment and demonstrate good understanding of self-management including self-MLD and sequential lymphedema exercises 01/13/19: good goal progress LTG Duration 03/14/19 Assessment Summary Assessment Pt shows signs and symptoms consistent with her referring diagnosis of nerve root impingement. Pt exhibits severe radicular pain and cramping from her lumbar spine down her bilateral legs, R>L. Pt also exhibits increased tone in her QL, piriformis, and ITB bilaterally. per her new referral, pt should undergo skilled therapy for 1- 3 sessions to address these impairments and obtain an appropriate HEP prior to a second caudal injection. In the mean time, pt should also continue her current skilled therapy focusing on her lymphedema following left mastectomy Physical Therapy Plan Frequency and Duration Frequency of Treatment 2-3x/wk Duration of Treatment 12 wks Plan of Care Start Date 02/05/19 Plan of Care End Date 04/30/19 Therapeutic Interventions Therapeutic Interventions Aquatic Therapy,Home Exercise Program,Lymphedema Management, Manual Therapy,Patient/ Caregiver Education,Self-Care/ Home Management,Soft Tissue Mobilization,Taping, Therapeutic Activities, Therapeutic Exercises Modalities Cold Pack/Ice Massage Next Visit Focus/Plan Next Note Type Treatment Note Next Visit Plan Assess effectiveness of new lumbar HEP, continue lymphedema treatment Plan of Care Dates Plan of Care Start Date 02/05/19 Plan of Care End Date 04/30/19 Please Sign and Return: I have reviewed this Plan of Care and certify that the skilled therapy services above are required to meet the patient?s needs. Physician Signature Date Printed Name and Credentials Clinical Instructor Signature Printed Name and Credentials
--- NOTE | 2019-02-09 17:39 | PT.OTN ---
Current Diagnoses Stiffness of unspecified hip, not elsewhere classified (02/09/19) Lumbago with sciatica, unspecified side (02/09/19) Muscle weakness (generalized) (02/09/19) Pain in right leg (02/09/19) Pain in left leg (02/09/19) Personal history of malignant neoplasm of breast (02/09/19) Physical Therapy Treatment Note PT-OP-A Visit Information Start: 10/16/18 08:17 Freq: Status: Active Protocol: Document 02/09/19 16:45 DCW (Rec: 02/09/19 17:39 DCW [id number]) Out-Patient Physical Therapy Visit Information Visit Information Visit Type Treatment Note Visit Start Time 16:45 Visit Stop Time 17:30 Total Visit Minutes 45 Visit Number 15 Number of KNIT GOODS PRESS HAND Visits 0 Evaluation Information Evaluation Date 10/16/18 PT-OP-B Current Condition Start: 10/16/18 08:17 Freq: Status: Active Protocol: Document 02/05/19 09:45 DCW (Rec: 02/05/19 17:44 DCW [id number]) Current Condition History of Current Condition Onset Date mastectomy left 2017 Current Complaints lymphedema History of Current Condition Radiation, no chemo. December 2017 left chest felt swollen and warm, painful, didn't see MD until April. States physician noted adhesions of tissue left chest. Dr. Diaz : ice and Lidocaine patches; still using but warmth decreased some. LYmphedema left chest and subaxillary area. Wanted to go to gym for UE ex but hasn't started yet per physician recommendation. ADDENDUM 02/05/19: Pt arrives with a new referral for her low back. Pt reports that one year ago, she had a nerve root impingement, and went to Dr Yoder. Following a caudal injection, she felt much better, however it is now beginning to wear off, and she is getting severe low back pain with radicular symptoms bilaterally, as well as muscle spasm through her low back and hips. Pt reports she has plans for another injection, however she was told it would also be helpful to attend 2-3 therapy sessions to learn some home stretches to decrease her muscle tone. Notes her pain is worst when first getting up in the morning. Future Testing and Treatments Planned MRI with possible biopsy Dr. Olivas 11/17/18 PT-OP-C Subjective Start: 10/16/18 08:17 Freq: Status: Active Protocol: Document 02/09/19 16:45 DCW (Rec: 02/09/19 17:39 DCW [id number]) OP-PT Subjective Patient Comments Patient Comments I did my exercises, and paid the alexandra. They hurt, but I can see how they would be good for me, which is annoying for me to admit. PT-OP-F Manual Assessment Start: 10/16/18 08:17 Freq: Status: Active Protocol: Document 02/05/19 09:45 DCW (Rec: 02/05/19 17:44 DCW [id number]) Manual Assessments Soft Tissue Assessment Soft Tissue Mobility Assessment Tenderness to palpation 3/4: Wincing and withdraw QL, Piriformis, and ITB, R>L PT-OP-J Posture/Palpation/Skin Start: 10/16/18 08:17 Freq: Status: Active Protocol: Document 10/16/18 16:29 SAK (Rec: 10/16/18 17:14 SAK [id number]) Posture Evaluation Position Sitting Head/C-Spine Posture Forward Head T-Spine Posture Increased Kyphosis Shoulder Posture (L) Forward,(R) Forward Arm Posture (L) Internally Rotated,(R) Internally Rotated Skin Assessment Other Assessments Skin Assessment Comments left chest region with reddened appearance and moderately severe fibrosis and adherent soft tissue with poor mobility. PT-OP-K Range of Motion Start: 10/16/18 08:17 Freq: Status: Active Protocol: Document 02/05/19 09:45 DCW (Rec: 02/05/19 17:44 DCW [id number]) Lumbar Spine Range of Motion Lumbar Spine Active Degrees Testing Position Standing Flexion 40 Extension 15 Lateral Flexion Left 49 Lateral Flexion Right 48 Comments Lateral flexion measured in cm from floor to finger tips PT-OP-L Special Tests Start: 10/16/18 08:17 Freq: Status: Active Protocol: Document 02/05/19 09:45 DCW (Rec: 02/05/19 17:44 DCW [id number]) Special Tests Lumbar Spine Special Tests Standing Flexion Test Results Increased pain and stiffness Straight Leg Raise Test Results Positive ipsilateral pain Slump Test Results Positive bilaterally Hip Special Tests Faoroq's test Test Results Positive bilaterally Piriformis Test Results Positive bilaterally PT-OP-M Strength Start: 10/16/18 08:17 Freq: Status: Active Protocol: Document 02/05/19 09:45 DCW (Rec: 02/05/19 17:44 DCW [id number]) Hip Strength Hip Manual Muscle Testing Bilateral Flexion (L2) 4- Good- Abduction 4+ Good+ Adduction 4+ Good+ External Rotation 4 Good Internal Rotation 4 Good Knee Strength Knee Manual Muscle Testing Bilateral Flexion (S2) 4- Good- Extension (L3) 4+ Good+ PT-OP-N Lymphedema Start: 10/16/18 08:17 Freq: Status: Active Protocol: Document 01/13/19 08:15 SAK (Rec: 01/13/19 17:01 SAK [id number]) Lymphedema Measurements Upper Extremity Circumference Measurements Left Affected MCP 18.3 cm Wrist 16 cm 5 cm From Distal Crease 16.9 cm 10 cm From Distal Crease 20.6 cm 15 cm From Distal Crease 23.8 cm 20 cm From Distal Crease 25 cm 25 cm From Distal Crease 27.6 cm 30 cm From Distal Crease 30.3 cm 35 cm From Distal Crease 34.5 cm 40 cm From Distal Crease 37.3 cm 45 cm From Distal Crease 38.3 cm PT-OP-Q Treatments Start: 10/16/18 08:17 Freq: Status: Active Protocol: Document 02/09/19 16:45 DCW (Rec: 02/09/19 17:39 DCW [id number]) Therapeutic Exercises Supine Exercises 3 Supine Exercise Name Cmjj-zz-Spqppeyr shoulder piriformis stretch Side bilateral Reps/Minutes 30 hold 2 Supine Exercise Name ITB stretch Side bilateral Equipment Used strap Reps/Minutes 30 hold Sitting Exercises 1 Sitting Exercise Name Seated lumbar flexion stretch Manual Therapy Treatment Soft Tissue Mobilization Low back Body Location B QL, Piriformsi, Paraspinals Mobilization Type Strumming,Sustained Pressure Intensity/Depth Moderate Body Position Sidelying Self-Care/Home Management Treatment Education Patient Education Home Exercise Program,Safety PT-OP-T Assessment and Plan Start: 10/16/18 08:17 Freq: Status: Active Protocol: Document 02/09/19 16:45 DCW (Rec: 02/09/19 17:39 DCW [id number]) Physical Therapy Assessment Impairments Impairments Edema,Functional Activities, Pain,Posture,ROM,Soft Tissue Mobility,Tone Goals 5 Impairment Pt does not have an appropriate HEP for low back pain Short Term Goal (STG) Pt to be independent and compliant with an appropriate lumbar HEP STG Duration 03/07/19 4 Impairment not able to participate in usual exercise activities Heel Lift Gouger Goal (LTG) Patient able to resume prior exercise activities without an increase in lymphedema 01/13/19: gradually increasing her activity level, has not been able to return to all activirties. LTG Duration 03/14/19 3 Impairment decreased soft tissue mobility left chest Heel Lift Gouger Goal (LTG) Improve soft tissue mobility left chest to WNL 01/13/19: goal progress LTG Duration 03/14/19 2 Impairment decreased left shoulder ROM Short Term Goal (STG) Patient to be independent with HEP for purposes of improving left shoulder ROM (01/06/18: Progressing HEP.) STG Duration goal met Half-Way Goal (LTG) Patient will attain full functional ROM of her left shoulder to allow her to reach overhead for purposes of ADL' s and household activities 01/13/19: goal progress LTG Duration 03/14/19 1 Impairment lymphedema left UE Heel Lift Gouger Goal (LTG) Decrease lymphedema to stable level with no increase or decrease more than 1 cm over the course of 1 wk, patient to obtain appropriate compression garment and demonstrate good understanding of self-management including self-MLD and sequential lymphedema exercises 01/13/19: good goal progress LTG Duration 03/14/19 Assessment Summary Assessment Pt required refresher on HEP, as she had lost her sheet and was performing her exercises incorrectly from memory. Pt will continue to work on her HEP independently, and will likely benefit from STM to her low back as indicated, if there is time following her Lymphedema sessions. Pt will mostly benefit from her upcoming caudal injection to decrease nerve pain. Physical Therapy Plan Frequency and Duration Frequency of Treatment 2-3x/wk Duration of Treatment 12 wks Plan of Care Start Date 02/05/19 Plan of Care End Date 04/30/19 Therapeutic Interventions Therapeutic Interventions Aquatic Therapy,Home Exercise Program,Lymphedema Management, Manual Therapy,Patient/ Caregiver Education,Self-Care/ Home Management,Soft Tissue Mobilization,Taping, Therapeutic Activities, Therapeutic Exercises Modalities Cold Pack/Ice Massage Next Visit Focus/Plan Next Note Type Treatment Note Next Visit Plan Assess effectiveness of new lumbar HEP, continue lymphedema treatment
--- NOTE | 2019-02-10 10:28 | PT.OTN ---
Current Diagnoses Stiffness of unspecified hip, not elsewhere classified (02/10/19) Lumbago with sciatica, unspecified side (02/10/19) Muscle weakness (generalized) (02/10/19) Pain in right leg (02/10/19) Pain in left leg (02/10/19) Personal history of malignant neoplasm of breast (02/10/19) Physical Therapy Treatment Note PT-OP-A Visit Information Start: 10/16/18 08:17 Freq: Status: Active Protocol: Document 02/10/19 10:00 GGD (Rec: 02/10/19 10:26 GGD [id number]) Out-Patient Physical Therapy Visit Information Visit Information Visit Type Treatment Note Visit Start Time 09:00 Visit Stop Time 10:10 Total Visit Minutes 70 Visit Number 16 Number of CERTIFIED EXECUTIVE CHEF Visits 1 PT-OP-B Current Condition Start: 10/16/18 08:17 Freq: Status: Active Protocol: Document 02/05/19 09:45 DCW (Rec: 02/05/19 17:44 DCW [id number]) Current Condition History of Current Condition Onset Date mastectomy left 2016 Current Complaints lymphedema History of Current Condition Radiation, no chemo. December 2017 left chest felt swollen and warm, painful, didn't see MD until April. States physician noted adhesions of tissue left chest. Dr. Diaz : ice and Lidocaine patches; still using but warmth decreased some. LYmphedema left chest and subaxillary area. Wanted to go to gym for UE ex but hasn't started yet per physician recommendation. ADDENDUM 02/05/19: Pt arrives with a new referral for her low back. Pt reports that one year ago, she had a nerve root impingement, and went to Dr Yoder. Following a caudal injection, she felt much better, however it is now beginning to wear off, and she is getting severe low back pain with radicular symptoms bilaterally, as well as muscle spasm through her low back and hips. Pt reports she has plans for another injection, however she was told it would also be helpful to attend 2-3 therapy sessions to learn some home stretches to decrease her muscle tone. Notes her pain is worst when first getting up in the morning. Future Testing and Treatments Planned MRI with possible biopsy Dr. Olivas 11/17/18 PT-OP-C Subjective Start: 10/16/18 08:17 Freq: Status: Active Protocol: Document 02/10/19 10:00 GGD (Rec: 02/10/19 10:26 GGD [id number]) OP-PT Subjective Patient Comments Patient Comments Pt states she tissue is moving better. PT-OP-F Manual Assessment Start: 10/16/18 08:17 Freq: Status: Active Protocol: Document 02/05/19 09:45 DCW (Rec: 02/05/19 17:44 DCW [id number]) Manual Assessments Soft Tissue Assessment Soft Tissue Mobility Assessment Tenderness to palpation 3/4: Wincing and withdraw QL, Piriformis, and ITB, R>L PT-OP-J Posture/Palpation/Skin Start: 10/16/18 08:17 Freq: Status: Active Protocol: Document 10/16/18 16:29 SAK (Rec: 10/16/18 17:14 SAK [id number]) Posture Evaluation Position Sitting Head/C-Spine Posture Forward Head T-Spine Posture Increased Kyphosis Shoulder Posture (L) Forward,(R) Forward Arm Posture (L) Internally Rotated,(R) Internally Rotated Skin Assessment Other Assessments Skin Assessment Comments left chest region with reddened appearance and moderately severe fibrosis and adherent soft tissue with poor mobility. PT-OP-K Range of Motion Start: 10/16/18 08:17 Freq: Status: Active Protocol: Document 02/05/19 09:45 DCW (Rec: 02/05/19 17:44 DCW [id number]) Lumbar Spine Range of Motion Lumbar Spine Active Degrees Testing Position Standing Flexion 40 Extension 15 Lateral Flexion Left 49 Lateral Flexion Right 48 Comments Lateral flexion measured in cm from floor to finger tips PT-OP-L Special Tests Start: 10/16/18 08:17 Freq: Status: Active Protocol: Document 02/05/19 09:45 DCW (Rec: 02/05/19 17:44 DCW [id number]) Special Tests Lumbar Spine Special Tests Standing Flexion Test Results Increased pain and stiffness Straight Leg Raise Test Results Positive ipsilateral pain Slump Test Results Positive bilaterally Hip Special Tests Farooq's test Test Results Positive bilaterally Piriformis Test Results Positive bilaterally PT-OP-M Strength Start: 10/16/18 08:17 Freq: Status: Active Protocol: Document 02/05/19 09:45 DCW (Rec: 02/05/19 17:44 DCW [id number]) Hip Strength Hip Manual Muscle Testing Bilateral Flexion (L2) 4- Good- Abduction 4+ Good+ Adduction 4+ Good+ External Rotation 4 Good Internal Rotation 4 Good Knee Strength Knee Manual Muscle Testing Bilateral Flexion (S2) 4- Good- Extension (L3) 4+ Good+ PT-OP-N Lymphedema Start: 10/16/18 08:17 Freq: Status: Active Protocol: Document 02/10/19 10:00 GGD (Rec: 02/10/19 10:28 GGD [id number]) Lymphedema Measurements Upper Extremity Circumference Measurements Left Affected MCP 18.1 cm Wrist 16 cm 5 cm From Distal Crease 16.5 cm 10 cm From Distal Crease 19.3 cm 15 cm From Distal Crease 23.8 cm 20 cm From Distal Crease 24.8 cm 25 cm From Distal Crease 27 cm 30 cm From Distal Crease 30.2 cm 35 cm From Distal Crease 31.8 cm 40 cm From Distal Crease 36.8 cm 45 cm From Distal Crease 38.2 cm PT-OP-Q Treatments Start: 10/16/18 08:17 Freq: Status: Active Protocol: Document 02/10/19 10:00 GGD (Rec: 02/10/19 10:26 GGD [id number]) Therapeutic Exercises Supine Exercises wand shoulder Supine Exercise Name wand for abd and flexion Side left Reps/Minutes 3 Comments gentle 1 Supine Exercise Name Shoulder ROM, flexion and ER, hor ab Comments AAROM, end-range stretching Sitting Exercises pulleys for shoulder flex Sitting Exercise Name flexion and scaption Reps/Minutes 10x Comments 3x end-range stretch with deep breathing. Manual Therapy Treatment Soft Tissue Mobilization left anterior chest Body Location scar tissue Mobilization Type Myofascial Release,Rolling, Other Intensity/Depth Superficial Body Position Hooklying Comments review of technique with patient for self-massage Taping left anterior chest Treatment Focus scar tissue Type of Tape Kinesio Tape Comments I strips for scar mobility; placed horizontally in scar region Other Other Manual Treatments measurements taken for compression sleeve, patient to explore options online. Lymphedema Treatment Manual Lymphatic Drainage Location left subaxillary region and UE Duration 30 min PT-OP-T Assessment and Plan Start: 10/16/18 08:17 Freq: Status: Active Protocol: Document 02/10/19 10:00 GGD (Rec: 02/10/19 10:26 GGD [id number]) Physical Therapy Assessment Assessment Summary Assessment Pt improving with shoulder ROM . She had decrease in UE measurements. 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 Physical Therapy Plan Frequency and Duration Frequency of Treatment 2-3x/wk Duration of Treatment 12 wks Plan of Care Start Date 02/05/19 Plan of Care End Date 04/30/19 Therapeutic Interventions Therapeutic Interventions Aquatic Therapy,Home Exercise Program,Lymphedema Management, Manual Therapy,Patient/ Caregiver Education,Self-Care/ Home Management,Soft Tissue Mobilization,Taping, Therapeutic Activities, Therapeutic Exercises Modalities Cold Pack/Ice Massage Next Visit Focus/Plan Next Note Type Treatment Note Next Visit Plan Assess effectiveness of new lumbar HEP, continue lymphedema treatment
--- NOTE | 2019-02-23 17:27 | PT.OTN ---
Current Diagnoses Stiffness of unspecified hip, not elsewhere classified (02/23/19) Lumbago with sciatica, unspecified side (02/23/19) Muscle weakness (generalized) (02/23/19) Pain in right leg (02/23/19) Pain in left leg (02/23/19) Personal history of malignant neoplasm of breast (02/23/19) Physical Therapy Treatment Note PT-OP-A Visit Information Start: 10/16/18 08:17 Freq: Status: Active Protocol: Document 02/23/19 08:15 SAK (Rec: 02/23/19 08:35 SAK [id number]) Out-Patient Physical Therapy Visit Information Visit Information Visit Type Treatment Note Visit Start Time 08:15 Visit Stop Time 09:20 Total Visit Minutes 65 Visit Number 17 Number of MEDICARE NURSE Visits 1 Evaluation Information Evaluation Date 10/16/18 PT-OP-B Current Condition Start: 10/16/18 08:17 Freq: Status: Active Protocol: Document 02/05/19 09:45 DCW (Rec: 02/05/19 17:44 DCW [id number]) Current Condition History of Current Condition Onset Date mastectomy left 2017 Current Complaints lymphedema History of Current Condition Radiation, no chemo. December 2017 left chest felt swollen and warm, painful, didn't see MD until April. States physician noted adhesions of tissue left chest. Dr. Diaz : ice and Lidocaine patches; still using but warmth decreased some. LYmphedema left chest and subaxillary area. Wanted to go to gym for UE ex but hasn't started yet per physician recommendation. ADDENDUM 02/05/19: Pt arrives with a new referral for her low back. Pt reports that one year ago, she had a nerve root impingement, and went to Dr Yoder. Following a caudal injection, she felt much better, however it is now beginning to wear off, and she is getting severe low back pain with radicular symptoms bilaterally, as well as muscle spasm through her low back and hips. Pt reports she has plans for another injection, however she was told it would also be helpful to attend 2-3 therapy sessions to learn some home stretches to decrease her muscle tone. Notes her pain is worst when first getting up in the morning. Future Testing and Treatments Planned MRI with possible biopsy Dr. Olivas 6/17/19 PT-OP-C Subjective Start: 10/16/18 08:17 Freq: Status: Active Protocol: Document 02/23/19 08:15 SAK (Rec: 02/23/19 08:35 SAK [id number]) OP-PT Subjective Patient Comments Patient Comments No new c/o PT-OP-F Manual Assessment Start: 10/16/18 08:17 Freq: Status: Active Protocol: Document 02/05/19 09:45 DCW (Rec: 02/05/19 17:44 DCW [id number]) Manual Assessments Soft Tissue Assessment Soft Tissue Mobility Assessment Tenderness to palpation 3/4: Wincing and withdraw QL, Piriformis, and ITB, R>L PT-OP-J Posture/Palpation/Skin Start: 10/16/18 08:17 Freq: Status: Active Protocol: Document 10/16/18 16:29 SAK (Rec: 10/16/18 17:14 SAK [id number]) Posture Evaluation Position Sitting Head/C-Spine Posture Forward Head T-Spine Posture Increased Kyphosis Shoulder Posture (L) Forward,(R) Forward Arm Posture (L) Internally Rotated,(R) Internally Rotated Skin Assessment Other Assessments Skin Assessment Comments left chest region with reddened appearance and moderately severe fibrosis and adherent soft tissue with poor mobility. PT-OP-K Range of Motion Start: 10/16/18 08:17 Freq: Status: Active Protocol: Document 02/05/19 09:45 DCW (Rec: 02/05/19 17:44 DCW [id number]) Lumbar Spine Range of Motion Lumbar Spine Active Degrees Testing Position Standing Flexion 40 Extension 15 Lateral Flexion Left 49 Lateral Flexion Right 48 Comments Lateral flexion measured in cm from floor to finger tips PT-OP-L Special Tests Start: 10/16/18 08:17 Freq: Status: Active Protocol: Document 02/05/19 09:45 DCW (Rec: 02/05/19 17:44 DCW [id number]) Special Tests Lumbar Spine Special Tests Standing Flexion Test Results Increased pain and stiffness Straight Leg Raise Test Results Positive ipsilateral pain Slump Test Results Positive bilaterally Hip Special Tests Farooq's test Test Results Positive bilaterally Piriformis Test Results Positive bilaterally PT-OP-M Strength Start: 10/16/18 08:17 Freq: Status: Active Protocol: Document 02/05/19 09:45 DCW (Rec: 02/05/19 17:44 DCW [id number]) Hip Strength Hip Manual Muscle Testing Bilateral Flexion (L2) 4- Good- Abduction 4+ Good+ Adduction 4+ Good+ External Rotation 4 Good Internal Rotation 4 Good Knee Strength Knee Manual Muscle Testing Bilateral Flexion (S2) 4- Good- Extension (L3) 4+ Good+ PT-OP-N Lymphedema Start: 10/16/18 08:17 Freq: Status: Active Protocol: Document 02/10/19 10:00 GGD (Rec: 02/10/19 10:28 GGD [email or web address]) Lymphedema Measurements Upper Extremity Circumference Measurements Left Affected MCP 18.1 cm Wrist 16 cm 5 cm From Distal Crease 16.5 cm 10 cm From Distal Crease 19.3 cm 15 cm From Distal Crease 23.8 cm 20 cm From Distal Crease 24.8 cm 25 cm From Distal Crease 27 cm 30 cm From Distal Crease 30.2 cm 35 cm From Distal Crease 31.8 cm 40 cm From Distal Crease 36.8 cm 45 cm From Distal Crease 38.2 cm PT-OP-Q Treatments Start: 10/16/18 08:17 Freq: Status: Active Protocol: Document 02/23/19 08:15 SAK (Rec: 02/23/19 08:35 SAK [id number]) Therapeutic Exercises Supine Exercises SKTC Reps/Minutes 2x30 3 Supine Exercise Name Hbaf-[id number] shoulder piriformis stretch Side bilateral Reps/Minutes 30 hold wand shoulder Supine Exercise Name wand for abd and flexion Side left Reps/Minutes 3 Comments gentle 1 Supine Exercise Name Shoulder ROM, flexion and ER, hor ab Comments AAROM, end-range stretching Sitting Exercises pulleys for shoulder flex Sitting Exercise Name flexion and scaption Reps/Minutes 10x Comments 3x end-range stretch with deep breathing. Manual Therapy Treatment Soft Tissue Mobilization left anterior chest Body Location scar tissue Mobilization Type Myofascial Release,Rolling, Other Intensity/Depth Superficial Body Position Hooklying Comments review of technique with patient for self-massage Lymphedema Treatment Manual Lymphatic Drainage Location left subaxillary region and UE Duration 30 min PT-OP-T Assessment and Plan Start: 10/16/18 08:17 Freq: Status: Active Protocol: Document 02/23/19 08:15 SAK (Rec: 02/23/19 08:35 SAK [id number]) Physical Therapy Assessment Goals 5 Impairment Pt does not have an appropriate HEP for low back pain Short Term Goal (STG) Pt to be independent and compliant with an appropriate lumbar HEP STG Duration 03/07/19 4 Impairment not able to participate in usual exercise activities Body Man Goal (LTG) Patient able to resume prior exercise activities without an increase in lymphedema 01/13/19: gradually increasing her activity level, has not been able to return to all activirties. LTG Duration 03/14/19 3 Impairment decreased soft tissue mobility left chest Assisted Goal (LTG) Improve soft tissue mobility left chest to WNL 01/13/19: goal progress LTG Duration 03/14/19 2 Impairment decreased left shoulder ROM Short Term Goal (STG) Patient to be independent with HEP for purposes of improving left shoulder ROM (01/06/18: Progressing HEP.) STG Duration goal met Assisted Goal (LTG) Patient will attain full functional ROM of her left shoulder to allow her to reach overhead for purposes of ADL' s and household activities 01/13/19: goal progress LTG Duration 03/14/19 1 Impairment lymphedema left UE Body Man Goal (LTG) Decrease lymphedema to stable level with no increase or decrease more than 1 cm over the course of 1 wk, patient to obtain appropriate compression garment and demonstrate good understanding of self-management including self-MLD and sequential lymphedema exercises 01/13/19: good goal progress LTG Duration 03/14/19 Assessment Summary Assessment patient very tender inferiolateral scapular border , soft tissue release increased ROM. Patient compliance with HEP is good. Continues to progress. Physical Therapy Plan Frequency and Duration Frequency of Treatment 2-3x/wk Duration of Treatment 12 wks Plan of Care Start Date 02/05/19 Plan of Care End Date 04/30/19 Therapeutic Interventions Therapeutic Interventions Aquatic Therapy,Home Exercise Program,Lymphedema Management, Manual Therapy,Patient/ Caregiver Education,Self-Care/ Home Management,Soft Tissue Mobilization,Taping, Therapeutic Activities, Therapeutic Exercises Modalities Cold Pack/Ice Massage Next Visit Focus/Plan Next Note Type Treatment Note Next Visit Plan Further review of lumbar HEP, consider trial of brace as discussed today. Continue lymphedema management.
--- NOTE | 2019-03-02 09:38 | PT.OTN ---
Current Diagnoses Stiffness of unspecified hip, not elsewhere classified (03/02/19) Lumbago with sciatica, unspecified side (03/02/19) Muscle weakness (generalized) (03/02/19) Pain in right leg (03/02/19) Pain in left leg (03/02/19) Personal history of malignant neoplasm of breast (03/02/19) Physical Therapy Treatment Note PT-OP-A Visit Information Start: 10/16/18 08:17 Freq: Status: Active Protocol: Document 03/02/19 08:21 SAK (Rec: 03/02/19 09:37 SAK [id number]) Out-Patient Physical Therapy Visit Information Visit Information Visit Type Treatment Note Visit Start Time 08:15 Visit Stop Time 09:20 Total Visit Minutes 65 Visit Number 18 Number of VASCULAR RADIOLOGIST Visits 1 Evaluation Information Evaluation Date 10/16/18 PT-OP-B Current Condition Start: 10/16/18 08:17 Freq: Status: Active Protocol: Document 02/05/19 09:45 DCW (Rec: 02/05/19 17:44 DCW [id number]) Current Condition History of Current Condition Onset Date mastectomy left 2017 Current Complaints lymphedema History of Current Condition Radiation, no chemo. December 2017 left chest felt swollen and warm, painful, didn't see MD until April. States physician noted adhesions of tissue left chest. Dr. Diaz : ice and Lidocaine patches; still using but warmth decreased some. LYmphedema left chest and subaxillary area. Wanted to go to gym for UE ex but hasn't started yet per physician recommendation. ADDENDUM 02/05/19: Pt arrives with a new referral for her low back. Pt reports that one year ago, she had a nerve root impingement, and went to Dr Yoder. Following a caudal injection, she felt much better, however it is now beginning to wear off, and she is getting severe low back pain with radicular symptoms bilaterally, as well as muscle spasm through her low back and hips. Pt reports she has plans for another injection, however she was told it would also be helpful to attend 2-3 therapy sessions to learn some home stretches to decrease her muscle tone. Notes her pain is worst when first getting up in the morning. Future Testing and Treatments Planned MRI with possible biopsy Dr. Olivas 6/17/19 PT-OP-C Subjective Start: 10/16/18 08:17 Freq: Status: Active Protocol: Document 03/02/19 08:21 SAK (Rec: 03/02/19 09:37 SAK [id number]) OP-PT Subjective Patient Comments Patient Comments No new c/o. Did most of her exercises, not one with wand due to not having pictures PT-OP-F Manual Assessment Start: 10/16/18 08:17 Freq: Status: Active Protocol: Document 02/05/19 09:45 DCW (Rec: 02/05/19 17:44 DCW [id number]) Manual Assessments Soft Tissue Assessment Soft Tissue Mobility Assessment Tenderness to palpation 3/4: Wincing and withdraw QL, Piriformis, and ITB, R>L PT-OP-J Posture/Palpation/Skin Start: 10/16/18 08:17 Freq: Status: Active Protocol: Document 10/16/18 16:29 SAK (Rec: 10/16/18 17:14 SAK [id number]) Posture Evaluation Position Sitting Head/C-Spine Posture Forward Head T-Spine Posture Increased Kyphosis Shoulder Posture (L) Forward,(R) Forward Arm Posture (L) Internally Rotated,(R) Internally Rotated Skin Assessment Other Assessments Skin Assessment Comments left chest region with reddened appearance and moderately severe fibrosis and adherent soft tissue with poor mobility. PT-OP-K Range of Motion Start: 10/16/18 08:17 Freq: Status: Active Protocol: Document 02/05/19 09:45 DCW (Rec: 02/05/19 17:44 DCW [id number]) Lumbar Spine Range of Motion Lumbar Spine Active Degrees Testing Position Standing Flexion 40 Extension 15 Lateral Flexion Left 49 Lateral Flexion Right 48 Comments Lateral flexion measured in cm from floor to finger tips PT-OP-L Special Tests Start: 10/16/18 08:17 Freq: Status: Active Protocol: Document 02/05/19 09:45 DCW (Rec: 02/05/19 17:44 DCW [id number]) Special Tests Lumbar Spine Special Tests Standing Flexion Test Results Increased pain and stiffness Straight Leg Raise Test Results Positive ipsilateral pain Slump Test Results Positive bilaterally Hip Special Tests Farooq's test Test Results Positive bilaterally Piriformis Test Results Positive bilaterally PT-OP-M Strength Start: 10/16/18 08:17 Freq: Status: Active Protocol: Document 02/05/19 09:45 DCW (Rec: 02/05/19 17:44 DCW [id number]) Hip Strength Hip Manual Muscle Testing Bilateral Flexion (L2) 4- Good- Abduction 4+ Good+ Adduction 4+ Good+ External Rotation 4 Good Internal Rotation 4 Good Knee Strength Knee Manual Muscle Testing Bilateral Flexion (S2) 4- Good- Extension (L3) 4+ Good+ PT-OP-N Lymphedema Start: 10/16/18 08:17 Freq: Status: Active Protocol: Document 02/10/19 10:00 GGD (Rec: 02/10/19 10:28 GGD [id number]) Lymphedema Measurements Upper Extremity Circumference Measurements Left Affected MCP 18.1 cm Wrist 16 cm 5 cm From Distal Crease 16.5 cm 10 cm From Distal Crease 19.3 cm 15 cm From Distal Crease 23.8 cm 20 cm From Distal Crease 24.8 cm 25 cm From Distal Crease 27 cm 30 cm From Distal Crease 30.2 cm 35 cm From Distal Crease 31.8 cm 40 cm From Distal Crease 36.8 cm 45 cm From Distal Crease 38.2 cm PT-OP-Q Treatments Start: 10/16/18 08:17 Freq: Status: Active Protocol: Document 03/02/19 08:21 SAK (Rec: 03/02/19 09:37 SAK [id number]) Cardio Equipment Recumbent Stepper (Sci-Fit) Duration (Minutes) 5 Resistance 2 Other to increase blood flow for improved extensibility of tissues Therapeutic Exercises Supine Exercises wand shoulder Supine Exercise Name wand for abd and flexion Side left Reps/Minutes 3 Comments gentle 1 Supine Exercise Name Shoulder ROM, flexion and ER, hor ab Comments AAROM, end-range stretching Sidelying Exercises 1 Sidelying Exercise Name Shoulder ROM, ABD, roll and reach Comments gentle, manual facil at trunk Sitting Exercises shoulder abduction with wand Reps/Minutes 10x pulleys for shoulder flex Sitting Exercise Name flexion and scaption Reps/Minutes 10x Comments 3x end-range stretch with deep breathing. Standing Exercises shoulder extension Resistance wand Reps/Minutes 10x Manual Therapy Treatment Soft Tissue Mobilization left anterior chest Body Location scar tissue Mobilization Type Myofascial Release,Rolling, Other Intensity/Depth Superficial Body Position Hooklying Comments review of technique with patient for self-massage Taping left anterior chest Treatment Focus scar tissue Type of Tape Kinesio Tape Comments I strips for scar mobility; placed horizontally in scar region Self-Care/Home Management Treatment Education Patient Education Home Exercise Program Lymphedema Treatment Manual Lymphatic Drainage Location left subaxillary region and UE Duration 30 min PT-OP-T Assessment and Plan Start: 10/16/18 08:17 Freq: Status: Active Protocol: Document 03/02/19 08:21 [facility] (Rec: 03/02/19 09:37 [facility] [id number]) Physical Therapy Assessment Goals 5 Impairment Pt does not have an appropriate HEP for low back pain Short Term Goal (STG) Pt to be independent and compliant with an appropriate lumbar HEP STG Duration 03/07/19 4 Impairment not able to participate in usual exercise activities Shelter Goal (LTG) Patient able to resume prior exercise activities without an increase in lymphedema 01/13/19: gradually increasing her activity level, has not been able to return to all activirties. LTG Duration 03/14/19 3 Impairment decreased soft tissue mobility left chest Mri Technician Goal (LTG) Improve soft tissue mobility left chest to WNL 01/13/19: goal progress LTG Duration 03/14/19 2 Impairment decreased left shoulder ROM Short Term Goal (STG) Patient to be independent with HEP for purposes of improving left shoulder ROM (01/06/18: Progressing HEP.) STG Duration goal met Mri Technician Goal (LTG) Patient will attain full functional ROM of her left shoulder to allow her to reach overhead for purposes of ADL' s and household activities 01/13/19: goal progress LTG Duration 03/14/19 1 Impairment lymphedema left UE Mri Technician Goal (LTG) Decrease lymphedema to stable level with no increase or decrease more than 1 cm over the course of 1 wk, patient to obtain appropriate compression garment and demonstrate good understanding of self-management including self-MLD and sequential lymphedema exercises 01/13/19: good goal progress LTG Duration 03/14/19 Assessment Summary Assessment Improved ROM and extensibility of scar tissue anterior left chest. Physical Therapy Plan Frequency and Duration Frequency of Treatment 2-3x/wk Duration of Treatment 12 wks Plan of Care Start Date 02/05/19 Plan of Care End Date 04/30/19 Therapeutic Interventions Therapeutic Interventions Aquatic Therapy,Home Exercise Program,Lymphedema Management, Manual Therapy,Patient/ Caregiver Education,Self-Care/ Home Management,Soft Tissue Mobilization,Taping, Therapeutic Activities, Therapeutic Exercises Modalities Cold Pack/Ice Massage Next Visit Focus/Plan Next Note Type Treatment Note Next Visit Plan Await results of injection before trial of brace. Continue lymphedema management .
--- NOTE | 2019-03-17 17:08 | PT.OTN ---
Current Diagnoses Stiffness of unspecified hip, not elsewhere classified (03/17/19) Lumbago with sciatica, unspecified side (03/17/19) Muscle weakness (generalized) (03/17/19) Pain in right leg (03/17/19) Pain in left leg (03/17/19) Personal history of malignant neoplasm of breast (03/17/19) Physical Therapy Treatment Note PT-OP-A Visit Information Start: 10/16/18 08:17 Freq: Status: Active Protocol: Document 03/17/19 16:56 GGD (Rec: 03/17/19 17:07 GGD [email or web address]) Out-Patient Physical Therapy Visit Information Visit Information Visit Type Treatment Note Visit Start Time 13:45 Visit Stop Time 15:08 Total Visit Minutes 83 Visit Number 19 Number of [employer] Visits 1 Evaluation Information Evaluation Date 10/16/18 PT-OP-B Current Condition Start: 10/16/18 08:17 Freq: Status: Active Protocol: Document 02/05/19 09:45 DCW (Rec: 02/05/19 17:44 DCW [id number]) Current Condition History of Current Condition Onset Date mastectomy left 2017 Current Complaints lymphedema History of Current Condition Radiation, no chemo. December 2017 left chest felt swollen and warm, painful, didn't see MD until April. States physician noted adhesions of tissue left chest. Dr. Diaz : ice and Lidocaine patches; still using but warmth decreased some. LYmphedema left chest and subaxillary area. Wanted to go to gym for UE ex but hasn't started yet per physician recommendation. ADDENDUM 02/05/19: Pt arrives with a new referral for her low back. Pt reports that one year ago, she had a nerve root impingement, and went to Dr Yoder. Following a caudal injection, she felt much better, however it is now beginning to wear off, and she is getting severe low back pain with radicular symptoms bilaterally, as well as muscle spasm through her low back and hips. Pt reports she has plans for another injection, however she was told it would also be helpful to attend 2-3 therapy sessions to learn some home stretches to decrease her muscle tone. Notes her pain is worst when first getting up in the morning. Future Testing and Treatments Planned MRI with possible biopsy Dr. Olivas 11/17/18 PT-OP-C Subjective Start: 10/16/18 08:17 Freq: Status: Active Protocol: Document 03/17/19 16:56 GGD (Rec: 03/17/19 17:07 GGD [email or web address]) OP-PT Subjective Patient Comments Patient Comments Pt states she feeling increases with swelling after flying. PT-OP-F Manual Assessment Start: 10/16/18 08:17 Freq: Status: Active Protocol: Document 02/05/19 09:45 DCW (Rec: 02/05/19 17:44 DCW [id number]) Manual Assessments Soft Tissue Assessment Soft Tissue Mobility Assessment Tenderness to palpation 3/4: Wincing and withdraw QL, Piriformis, and ITB, R>L PT-OP-J Posture/Palpation/Skin Start: 10/16/18 08:17 Freq: Status: Active Protocol: Document 10/16/18 16:29 SAK (Rec: 10/16/18 17:14 SAK [id number]) Posture Evaluation Position Sitting Head/C-Spine Posture Forward Head T-Spine Posture Increased Kyphosis Shoulder Posture (L) Forward,(R) Forward Arm Posture (L) Internally Rotated,(R) Internally Rotated Skin Assessment Other Assessments Skin Assessment Comments left chest region with reddened appearance and moderately severe fibrosis and adherent soft tissue with poor mobility. PT-OP-K Range of Motion Start: 10/16/18 08:17 Freq: Status: Active Protocol: Document 02/05/19 09:45 DCW (Rec: 02/05/19 17:44 DCW [id number]) Lumbar Spine Range of Motion Lumbar Spine Active Degrees Testing Position Standing Flexion 40 Extension 15 Lateral Flexion Left 49 Lateral Flexion Right 48 Comments Lateral flexion measured in cm from floor to finger tips PT-OP-L Special Tests Start: 10/16/18 08:17 Freq: Status: Active Protocol: Document 02/05/19 09:45 DCW (Rec: 02/05/19 17:44 DCW [id number]) Special Tests Lumbar Spine Special Tests Standing Flexion Test Results Increased pain and stiffness Straight Leg Raise Test Results Positive ipsilateral pain Slump Test Results Positive bilaterally Hip Special Tests Farooq's test Test Results Positive bilaterally Piriformis Test Results Positive bilaterally PT-OP-M Strength Start: 10/16/18 08:17 Freq: Status: Active Protocol: Document 02/05/19 09:45 DCW (Rec: 02/05/19 17:44 DCW [id number]) Hip Strength Hip Manual Muscle Testing Bilateral Flexion (L2) 4- Good- Abduction 4+ Good+ Adduction 4+ Good+ External Rotation 4 Good Internal Rotation 4 Good Knee Strength Knee Manual Muscle Testing Bilateral Flexion (S2) 4- Good- Extension (L3) 4+ Good+ PT-OP-N Lymphedema Start: 10/16/18 08:17 Freq: Status: Active Protocol: Document 02/10/19 10:00 GGD (Rec: 02/10/19 10:28 GGD [email or web address]) Lymphedema Measurements Upper Extremity Circumference Measurements Left Affected MCP 18.1 cm Wrist 16 cm 5 cm From Distal Crease 16.5 cm 10 cm From Distal Crease 19.3 cm 15 cm From Distal Crease 23.8 cm 20 cm From Distal Crease 24.8 cm 25 cm From Distal Crease 27 cm 30 cm From Distal Crease 30.2 cm 35 cm From Distal Crease 31.8 cm 40 cm From Distal Crease 36.8 cm 45 cm From Distal Crease 38.2 cm PT-OP-Q Treatments Start: 10/16/18 08:17 Freq: Status: Active Protocol: Document 03/17/19 16:56 GGD (Rec: 03/17/19 17:07 GGD [email or web address]) Therapeutic Exercises Supine Exercises wand shoulder Supine Exercise Name wand for abd and flexion Side left Reps/Minutes 3 Comments gentle 1 Supine Exercise Name Shoulder ROM, flexion and ER, hor ab Comments AAROM, end-range stretching Sidelying Exercises 1 Sidelying Exercise Name Shoulder ROM, ABD, roll and reach Comments gentle, manual facil at trunk Sitting Exercises shoulder abduction with wand Reps/Minutes 10x pulleys for shoulder flex Sitting Exercise Name flexion and scaption Reps/Minutes 10x Comments 3x end-range stretch with deep breathing. Standing Exercises shoulder extension Resistance wand Reps/Minutes 10x Manual Therapy Treatment Soft Tissue Mobilization left anterior chest Body Location scar tissue Mobilization Type Myofascial Release,Rolling, Other Intensity/Depth Superficial Body Position Hooklying Comments review of technique with patient for self-massage Taping left anterior chest Treatment Focus scar tissue Type of Tape Kinesio Tape Comments I strips for scar mobility; placed horizontally in scar region Lymphedema Treatment Manual Lymphatic Drainage Location left subaxillary region and UE Duration 30 min PT-OP-T Assessment and Plan Start: 10/16/18 08:17 Freq: Status: Active Protocol: Document 03/17/19 16:56 GGD (Rec: 03/17/19 17:07 GGD [email or web address]) Physical Therapy Assessment Goals 5 Impairment Pt does not have an appropriate HEP for low back pain Short Term Goal (STG) Pt to be independent and compliant with an appropriate lumbar HEP STG Duration 03/07/19 4 Impairment not able to participate in usual exercise activities Skilled Nursing Goal (LTG) Patient able to resume prior exercise activities without an increase in lymphedema 01/13/19: gradually increasing her activity level, has not been able to return to all activirties. LTG Duration 03/14/19 3 Impairment decreased soft tissue mobility left chest Car Varnisher Goal (LTG) Improve soft tissue mobility left chest to WNL 01/13/19: goal progress LTG Duration 03/14/19 2 Impairment decreased left shoulder ROM Short Term Goal (STG) Patient to be independent with HEP for purposes of improving left shoulder ROM (01/06/18: Progressing HEP.) STG Duration goal met Car Varnisher Goal (LTG) Patient will attain full functional ROM of her left shoulder to allow her to reach overhead for purposes of ADL' s and household activities 01/13/19: goal progress LTG Duration 03/14/19 1 Impairment lymphedema left UE Car Varnisher Goal (LTG) Decrease lymphedema to stable level with no increase or decrease more than 1 cm over the course of 1 wk, patient to obtain appropriate compression garment and demonstrate good understanding of self-management including self-MLD and sequential lymphedema exercises 01/13/19: good goal progress LTG Duration 03/14/19 Assessment Summary Assessment Pt improving with tissue mobility. She had improved in shoulder ROM. Physical Therapy Plan Frequency and Duration Frequency of Treatment 2-3x/wk Duration of Treatment 12 wks Plan of Care Start Date 02/05/19 Plan of Care End Date 04/30/19 Next Visit Focus/Plan Next Note Type Treatment Note Next Visit Plan Continue lymphedema management .
--- NOTE | 2019-03-24 16:42 | PT.OTN ---
Current Diagnoses Stiffness of unspecified hip, not elsewhere classified (03/24/19) Lumbago with sciatica, unspecified side (03/24/19) Muscle weakness (generalized) (03/24/19) Pain in right leg (03/24/19) Pain in left leg (03/24/19) Personal history of malignant neoplasm of breast (03/24/19) Physical Therapy Treatment Note PT-OP-A Visit Information Start: 10/16/18 08:17 Freq: Status: Active Protocol: Document 03/24/19 16:32 GGD (Rec: 03/24/19 16:41 GGD [email or web address]) Out-Patient Physical Therapy Visit Information Visit Information Visit Type Treatment Note Visit Start Time 13:45 Visit Stop Time 15:08 Total Visit Minutes 83 Visit Number 20 Number of CHEMICAL SUPERVISOR Visits 2 Evaluation Information Evaluation Date 10/16/18 PT-OP-B Current Condition Start: 10/16/18 08:17 Freq: Status: Active Protocol: Document 02/05/19 09:45 DCW (Rec: 02/05/19 17:44 DCW [id number]) Current Condition History of Current Condition Onset Date mastectomy left 2017 Current Complaints lymphedema History of Current Condition Radiation, no chemo. December 2017 left chest felt swollen and warm, painful, didn't see MD until April. States physician noted adhesions of tissue left chest. Dr. Diaz : ice and Lidocaine patches; still using but warmth decreased some. LYmphedema left chest and subaxillary area. Wanted to go to gym for UE ex but hasn't started yet per physician recommendation. ADDENDUM 02/05/19: Pt arrives with a new referral for her low back. Pt reports that one year ago, she had a nerve root impingement, and went to Dr Yoder. Following a caudal injection, she felt much better, however it is now beginning to wear off, and she is getting severe low back pain with radicular symptoms bilaterally, as well as muscle spasm through her low back and hips. Pt reports she has plans for another injection, however she was told it would also be helpful to attend 2-3 therapy sessions to learn some home stretches to decrease her muscle tone. Notes her pain is worst when first getting up in the morning. Future Testing and Treatments Planned MRI with possible biopsy Dr. Olivas 11/17/18 PT-OP-C Subjective Start: 10/16/18 08:17 Freq: Status: Active Protocol: Document 03/24/19 16:32 GGD (Rec: 03/24/19 16:41 GGD [email or web address]) OP-PT Subjective Patient Comments Patient Comments Pt states pain has improved and been week since last lidocain patch. PT-OP-F Manual Assessment Start: 10/16/18 08:17 Freq: Status: Active Protocol: Document 02/05/19 09:45 DCW (Rec: 02/05/19 17:44 DCW [id number]) Manual Assessments Soft Tissue Assessment Soft Tissue Mobility Assessment Tenderness to palpation 3/4: Wincing and withdraw QL, Piriformis, and ITB, R>L PT-OP-J Posture/Palpation/Skin Start: 10/16/18 08:17 Freq: Status: Active Protocol: Document 10/16/18 16:29 SAK (Rec: 10/16/18 17:14 SAK [id number]) Posture Evaluation Position Sitting Head/C-Spine Posture Forward Head T-Spine Posture Increased Kyphosis Shoulder Posture (L) Forward,(R) Forward Arm Posture (L) Internally Rotated,(R) Internally Rotated Skin Assessment Other Assessments Skin Assessment Comments left chest region with reddened appearance and moderately severe fibrosis and adherent soft tissue with poor mobility. PT-OP-K Range of Motion Start: 10/16/18 08:17 Freq: Status: Active Protocol: Document 02/05/19 09:45 DCW (Rec: 02/05/19 17:44 DCW [id number]) Lumbar Spine Range of Motion Lumbar Spine Active Degrees Testing Position Standing Flexion 40 Extension 15 Lateral Flexion Left 49 Lateral Flexion Right 48 Comments Lateral flexion measured in cm from floor to finger tips PT-OP-L Special Tests Start: 10/16/18 08:17 Freq: Status: Active Protocol: Document 02/05/19 09:45 DCW (Rec: 02/05/19 17:44 DCW [id number]) Special Tests Lumbar Spine Special Tests Standing Flexion Test Results Increased pain and stiffness Straight Leg Raise Test Results Positive ipsilateral pain Slump Test Results Positive bilaterally Hip Special Tests Farooq's test Test Results Positive bilaterally Piriformis Test Results Positive bilaterally PT-OP-M Strength Start: 10/16/18 08:17 Freq: Status: Active Protocol: Document 02/05/19 09:45 DCW (Rec: 02/05/19 17:44 DCW [id number]) Hip Strength Hip Manual Muscle Testing Bilateral Flexion (L2) 4- Good- Abduction 4+ Good+ Adduction 4+ Good+ External Rotation 4 Good Internal Rotation 4 Good Knee Strength Knee Manual Muscle Testing Bilateral Flexion (S2) 4- Good- Extension (L3) 4+ Good+ PT-OP-N Lymphedema Start: 10/16/18 08:17 Freq: Status: Active Protocol: Document 02/10/19 10:00 GGD (Rec: 02/10/19 10:28 GGD [email or web address]) Lymphedema Measurements Upper Extremity Circumference Measurements Left Affected MCP 18.1 cm Wrist 16 cm 5 cm From Distal Crease 16.5 cm 10 cm From Distal Crease 19.3 cm 15 cm From Distal Crease 23.8 cm 20 cm From Distal Crease 24.8 cm 25 cm From Distal Crease 27 cm 30 cm From Distal Crease 30.2 cm 35 cm From Distal Crease 31.8 cm 40 cm From Distal Crease 36.8 cm 45 cm From Distal Crease 38.2 cm PT-OP-Q Treatments Start: 10/16/18 08:17 Freq: Status: Active Protocol: Document 03/24/19 16:32 GGD (Rec: 03/24/19 16:41 GGD [email or web address]) Therapeutic Exercises Supine Exercises 1 Supine Exercise Name Shoulder ROM, flexion and ER, hor ab Comments AAROM, end-range stretching Sidelying Exercises 1 Sidelying Exercise Name Shoulder ROM, ABD, roll and reach Comments gentle, manual facil at trunk Sitting Exercises pulleys for shoulder flex Sitting Exercise Name flexion and scaption Reps/Minutes 10x Comments 3x end-range stretch with deep breathing. Manual Therapy Treatment Soft Tissue Mobilization left anterior chest Body Location scar tissue Mobilization Type Myofascial Release,Rolling, Other Intensity/Depth Superficial Body Position Hooklying Comments review of technique with patient for self-massage Lymphedema Treatment Manual Lymphatic Drainage Location left subaxillary region and UE Duration 30 min PT-OP-T Assessment and Plan Start: 10/16/18 08:17 Freq: Status: Active Protocol: Document 03/24/19 16:32 GGD (Rec: 03/24/19 16:41 GGD [email or web address]) Physical Therapy Assessment Goals 5 Impairment Pt does not have an appropriate HEP for low back pain Short Term Goal (STG) Pt to be independent and compliant with an appropriate lumbar HEP STG Duration 03/07/19 4 Impairment not able to participate in usual exercise activities Animal Warden Goal (LTG) Patient able to resume prior exercise activities without an increase in lymphedema 01/13/19: gradually increasing her activity level, has not been able to return to all activirties. LTG Duration 03/14/19 3 Impairment decreased soft tissue mobility left chest Animal Warden Goal (LTG) Improve soft tissue mobility left chest to WNL 01/13/19: goal progress LTG Duration 03/14/19 2 Impairment decreased left shoulder ROM Short Term Goal (STG) Patient to be independent with HEP for purposes of improving left shoulder ROM (01/06/18: Progressing HEP.) STG Duration goal met Animal Warden Goal (LTG) Patient will attain full functional ROM of her left shoulder to allow her to reach overhead for purposes of ADL' s and household activities 01/13/19: goal progress LTG Duration 03/14/19 1 Impairment lymphedema left UE Animal Warden Goal (LTG) Decrease lymphedema to stable level with no increase or decrease more than 1 cm over the course of 1 wk, patient to obtain appropriate compression garment and demonstrate good understanding of self-management including self-MLD and sequential lymphedema exercises 01/13/19: good goal progress LTG Duration 03/14/19 Assessment Summary Assessment Pt needed cues for scap control with shoulder ROM. She improving with pain control and tissue mobility. Physical Therapy Plan Frequency and Duration Frequency of Treatment 2-3x/wk Duration of Treatment 12 wks Plan of Care Start Date 02/05/19 Plan of Care End Date 04/30/19 Therapeutic Interventions Therapeutic Interventions Aquatic Therapy,Home Exercise Program,Lymphedema Management, Manual Therapy,Patient/ Caregiver Education,Self-Care/ Home Management,Soft Tissue Mobilization,Taping, Therapeutic Activities, Therapeutic Exercises Next Visit Focus/Plan Next Note Type Treatment Note Next Visit Plan Continue lymphedema management .
--- NOTE | 2019-03-31 10:18 | PT.OTN ---
Current Diagnoses Stiffness of unspecified hip, not elsewhere classified (03/31/19) Lumbago with sciatica, unspecified side (03/31/19) Muscle weakness (generalized) (03/31/19) Pain in right leg (03/31/19) Pain in left leg (03/31/19) Personal history of malignant neoplasm of breast (03/31/19) Physical Therapy Treatment Note PT-OP-A Visit Information Start: 10/16/18 08:17 Freq: Status: Active Protocol: Document 03/31/19 10:11 GGD (Rec: 03/31/19 10:18 GGD [email or web address]) Out-Patient Physical Therapy Visit Information Visit Information Visit Type Treatment Note Visit Start Time 09:00 Visit Stop Time 10:10 Total Visit Minutes 70 Visit Number 21 Number of MANUAL ARTS THERAPIST Visits 3 Evaluation Information Evaluation Date 10/16/18 PT-OP-B Current Condition Start: 10/16/18 08:17 Freq: Status: Active Protocol: Document 02/05/19 09:45 DCW (Rec: 02/05/19 17:44 DCW [id number]) Current Condition History of Current Condition Onset Date mastectomy left 2017 Current Complaints lymphedema History of Current Condition Radiation, no chemo. December 2017 left chest felt swollen and warm, painful, didn't see MD until April. States physician noted adhesions of tissue left chest. Dr. Diaz : ice and Lidocaine patches; still using but warmth decreased some. LYmphedema left chest and subaxillary area. Wanted to go to gym for UE ex but hasn't started yet per physician recommendation. ADDENDUM 02/05/19: Pt arrives with a new referral for her low back. Pt reports that one year ago, she had a nerve root impingement, and went to Dr Yoder. Following a caudal injection, she felt much better, however it is now beginning to wear off, and she is getting severe low back pain with radicular symptoms bilaterally, as well as muscle spasm through her low back and hips. Pt reports she has plans for another injection, however she was told it would also be helpful to attend 2-3 therapy sessions to learn some home stretches to decrease her muscle tone. Notes her pain is worst when first getting up in the morning. Future Testing and Treatments Planned MRI with possible biopsy Dr. Olivas 11/17/18 PT-OP-C Subjective Start: 10/16/18 08:17 Freq: Status: Active Protocol: Document 03/31/19 10:11 GGD (Rec: 03/31/19 10:18 GGD [email or web address]) OP-PT Subjective Patient Comments Patient Comments Pt states she has increase in pain after a day of wearing her bra. PT-OP-F Manual Assessment Start: 10/16/18 08:17 Freq: Status: Active Protocol: Document 02/05/19 09:45 DCW (Rec: 02/05/19 17:44 DCW [id number]) Manual Assessments Soft Tissue Assessment Soft Tissue Mobility Assessment Tenderness to palpation 3/4: Wincing and withdraw QL, Piriformis, and ITB, R>L PT-OP-J Posture/Palpation/Skin Start: 10/16/18 08:17 Freq: Status: Active Protocol: Document 10/16/18 16:29 SAK (Rec: 10/16/18 17:14 SAK [id number]) Posture Evaluation Position Sitting Head/C-Spine Posture Forward Head T-Spine Posture Increased Kyphosis Shoulder Posture (L) Forward,(R) Forward Arm Posture (L) Internally Rotated,(R) Internally Rotated Skin Assessment Other Assessments Skin Assessment Comments left chest region with reddened appearance and moderately severe fibrosis and adherent soft tissue with poor mobility. PT-OP-K Range of Motion Start: 10/16/18 08:17 Freq: Status: Active Protocol: Document 02/05/19 09:45 DCW (Rec: 02/05/19 17:44 DCW [id number]) Lumbar Spine Range of Motion Lumbar Spine Active Degrees Testing Position Standing Flexion 40 Extension 15 Lateral Flexion Left 49 Lateral Flexion Right 48 Comments Lateral flexion measured in cm from floor to finger tips PT-OP-L Special Tests Start: 10/16/18 08:17 Freq: Status: Active Protocol: Document 02/05/19 09:45 DCW (Rec: 02/05/19 17:44 DCW [id number]) Special Tests Lumbar Spine Special Tests Standing Flexion Test Results Increased pain and stiffness Straight Leg Raise Test Results Positive ipsilateral pain Slump Test Results Positive bilaterally Hip Special Tests Farooq's test Test Results Positive bilaterally Piriformis Test Results Positive bilaterally PT-OP-M Strength Start: 10/16/18 08:17 Freq: Status: Active Protocol: Document 02/05/19 09:45 DCW (Rec: 02/05/19 17:44 DCW [id number]) Hip Strength Hip Manual Muscle Testing Bilateral Flexion (L2) 4- Good- Abduction 4+ Good+ Adduction 4+ Good+ External Rotation 4 Good Internal Rotation 4 Good Knee Strength Knee Manual Muscle Testing Bilateral Flexion (S2) 4- Good- Extension (L3) 4+ Good+ PT-OP-N Lymphedema Start: 10/16/18 08:17 Freq: Status: Active Protocol: Document 02/10/19 10:00 GGD (Rec: 02/10/19 10:28 GGD [email or web address]) Lymphedema Measurements Upper Extremity Circumference Measurements Left Affected MCP 18.1 cm Wrist 16 cm 5 cm From Distal Crease 16.5 cm 10 cm From Distal Crease 19.3 cm 15 cm From Distal Crease 23.8 cm 20 cm From Distal Crease 24.8 cm 25 cm From Distal Crease 27 cm 30 cm From Distal Crease 30.2 cm 35 cm From Distal Crease 31.8 cm 40 cm From Distal Crease 36.8 cm 45 cm From Distal Crease 38.2 cm PT-OP-Q Treatments Start: 10/16/18 08:17 Freq: Status: Active Protocol: Document 03/31/19 10:11 GGD (Rec: 03/31/19 10:18 GGD [email or web address]) Therapeutic Exercises Supine Exercises 1 Supine Exercise Name Shoulder ROM, flexion and ER, hor ab Comments AAROM, end-range stretching Manual Therapy Treatment Soft Tissue Mobilization left anterior chest Body Location scar tissue Mobilization Type Myofascial Release,Rolling, Other Intensity/Depth Superficial Body Position Hooklying Comments review of technique with patient for self-massage Taping left anterior chest Treatment Focus scar tissue Type of Tape Kinesio Tape Comments I strips for scar mobility; placed horizontally in scar region Lymphedema Treatment Manual Lymphatic Drainage Location left subaxillary region and UE Duration 30 min PT-OP-T Assessment and Plan Start: 10/16/18 08:17 Freq: Status: Active Protocol: Document 03/31/19 10:11 GGD (Rec: 03/31/19 10:18 GGD [email or web address]) Physical Therapy Assessment Goals 5 Impairment Pt does not have an appropriate HEP for low back pain Short Term Goal (STG) Pt to be independent and compliant with an appropriate lumbar HEP STG Duration 03/07/19 4 Impairment not able to participate in usual exercise activities Air Conditioning Manager Goal (LTG) Patient able to resume prior exercise activities without an increase in lymphedema 01/13/19: gradually increasing her activity level, has not been able to return to all activirties. LTG Duration 03/14/19 3 Impairment decreased soft tissue mobility left chest Air Conditioning Manager Goal (LTG) Improve soft tissue mobility left chest to WNL 01/13/19: goal progress LTG Duration 03/14/19 2 Impairment decreased left shoulder ROM Short Term Goal (STG) Patient to be independent with HEP for purposes of improving left shoulder ROM (01/06/18: Progressing HEP.) STG Duration goal met Air Conditioning Manager Goal (LTG) Patient will attain full functional ROM of her left shoulder to allow her to reach overhead for purposes of ADL' s and household activities 01/13/19: goal progress LTG Duration 03/14/19 1 Impairment lymphedema left UE Air Conditioning Manager Goal (LTG) Decrease lymphedema to stable level with no increase or decrease more than 1 cm over the course of 1 wk, patient to obtain appropriate compression garment and demonstrate good understanding of self-management including self-MLD and sequential lymphedema exercises 01/13/19: good goal progress LTG Duration 03/14/19 Assessment Summary Assessment Pt improving with shoulder ROM . PROM of ER WNL. Pt improved with flexion and abd. Pt tender and tight to pec muscles. Physical Therapy Plan Frequency and Duration Frequency of Treatment 2-3x/wk Duration of Treatment 12 wks Plan of Care Start Date 02/05/19 Plan of Care End Date 04/30/19 Next Visit Focus/Plan Next Note Type Treatment Note Next Visit Plan Continue lymphedema management , scar mobs, Shoulder ROM.
--- NOTE | 2019-04-07 17:25 | PT.OTN ---
Current Diagnoses Stiffness of unspecified hip, not elsewhere classified (04/07/19) Lumbago with sciatica, unspecified side (04/07/19) Muscle weakness (generalized) (04/07/19) Pain in right leg (04/07/19) Pain in left leg (04/07/19) Personal history of malignant neoplasm of breast (04/07/19) Physical Therapy Treatment Note PT-OP-A Visit Information Start: 10/16/18 08:17 Freq: Status: Active Protocol: Document 04/07/19 17:15 GGD (Rec: 04/07/19 17:24 GGD [email or web address]) Out-Patient Physical Therapy Visit Information Visit Information Visit Type Treatment Note Visit Start Time 13:50 Visit Stop Time 15:10 Total Visit Minutes 70 Visit Number 22 Number of PRODUCT DEMONSTRATOR Visits 4 Evaluation Information Evaluation Date 10/16/18 PT-OP-B Current Condition Start: 10/16/18 08:17 Freq: Status: Active Protocol: Document 02/05/19 09:45 DCW (Rec: 02/05/19 17:44 DCW [id number]) Current Condition History of Current Condition Onset Date mastectomy left 2017 Current Complaints lymphedema History of Current Condition Radiation, no chemo. December 2017 left chest felt swollen and warm, painful, didn't see MD until April. States physician noted adhesions of tissue left chest. Dr. Diaz : ice and Lidocaine patches; still using but warmth decreased some. LYmphedema left chest and subaxillary area. Wanted to go to gym for UE ex but hasn't started yet per physician recommendation. ADDENDUM 02/05/19: Pt arrives with a new referral for her low back. Pt reports that one year ago, she had a nerve root impingement, and went to Dr Yoder. Following a caudal injection, she felt much better, however it is now beginning to wear off, and she is getting severe low back pain with radicular symptoms bilaterally, as well as muscle spasm through her low back and hips. Pt reports she has plans for another injection, however she was told it would also be helpful to attend 2-3 therapy sessions to learn some home stretches to decrease her muscle tone. Notes her pain is worst when first getting up in the morning. Future Testing and Treatments Planned MRI with possible biopsy Dr. Olivas 11/17/18 PT-OP-C Subjective Start: 10/16/18 08:17 Freq: Status: Active Protocol: Document 04/07/19 17:15 GGD (Rec: 04/07/19 17:24 GGD [email or web address]) OP-PT Subjective Patient Comments Patient Comments Pt states her MD is happy with the progress of the scar tissue. PT-OP-F Manual Assessment Start: 10/16/18 08:17 Freq: Status: Active Protocol: Document 02/05/19 09:45 DCW (Rec: 02/05/19 17:44 DCW [id number]) Manual Assessments Soft Tissue Assessment Soft Tissue Mobility Assessment Tenderness to palpation 3/4: Wincing and withdraw QL, Piriformis, and ITB, R>L PT-OP-J Posture/Palpation/Skin Start: 10/16/18 08:17 Freq: Status: Active Protocol: Document 10/16/18 16:29 SAK (Rec: 10/16/18 17:14 SAK [id number]) Posture Evaluation Position Sitting Head/C-Spine Posture Forward Head T-Spine Posture Increased Kyphosis Shoulder Posture (L) Forward,(R) Forward Arm Posture (L) Internally Rotated,(R) Internally Rotated Skin Assessment Other Assessments Skin Assessment Comments left chest region with reddened appearance and moderately severe fibrosis and adherent soft tissue with poor mobility. PT-OP-K Range of Motion Start: 10/16/18 08:17 Freq: Status: Active Protocol: Document 02/05/19 09:45 DCW (Rec: 02/05/19 17:44 DCW [id number]) Lumbar Spine Range of Motion Lumbar Spine Active Degrees Testing Position Standing Flexion 40 Extension 15 Lateral Flexion Left 49 Lateral Flexion Right 48 Comments Lateral flexion measured in cm from floor to finger tips PT-OP-L Special Tests Start: 10/16/18 08:17 Freq: Status: Active Protocol: Document 02/05/19 09:45 DCW (Rec: 02/05/19 17:44 DCW [id number]) Special Tests Lumbar Spine Special Tests Standing Flexion Test Results Increased pain and stiffness Straight Leg Raise Test Results Positive ipsilateral pain Slump Test Results Positive bilaterally Hip Special Tests Farooq's test Test Results Positive bilaterally Piriformis Test Results Positive bilaterally PT-OP-M Strength Start: 10/16/18 08:17 Freq: Status: Active Protocol: Document 02/05/19 09:45 DCW (Rec: 02/05/19 17:44 DCW [id number]) Hip Strength Hip Manual Muscle Testing Bilateral Flexion (L2) 4- Good- Abduction 4+ Good+ Adduction 4+ Good+ External Rotation 4 Good Internal Rotation 4 Good Knee Strength Knee Manual Muscle Testing Bilateral Flexion (S2) 4- Good- Extension (L3) 4+ Good+ PT-OP-N Lymphedema Start: 10/16/18 08:17 Freq: Status: Active Protocol: Document 02/10/19 10:00 GGD (Rec: 02/10/19 10:28 GGD [email or web address]) Lymphedema Measurements Upper Extremity Circumference Measurements Left Affected MCP 18.1 cm Wrist 16 cm 5 cm From Distal Crease 16.5 cm 10 cm From Distal Crease 19.3 cm 15 cm From Distal Crease 23.8 cm 20 cm From Distal Crease 24.8 cm 25 cm From Distal Crease 27 cm 30 cm From Distal Crease 30.2 cm 35 cm From Distal Crease 31.8 cm 40 cm From Distal Crease 36.8 cm 45 cm From Distal Crease 38.2 cm PT-OP-Q Treatments Start: 10/16/18 08:17 Freq: Status: Active Protocol: Document 04/07/19 17:15 GGD (Rec: 04/07/19 17:24 GGD [email or web address]) Therapeutic Exercises Supine Exercises wand shoulder Supine Exercise Name wand for abd and flexion Side left Reps/Minutes 3 Comments gentle 1 Supine Exercise Name Shoulder ROM, flexion and ER, hor ab Comments AAROM, end-range stretching Manual Therapy Treatment Soft Tissue Mobilization left anterior chest Body Location scar tissue Mobilization Type Myofascial Release,Rolling, Other Intensity/Depth Superficial Body Position Hooklying Comments review of technique with patient for self-massage Taping left anterior chest Treatment Focus scar tissue Type of Tape Kinesio Tape Comments I strips for scar mobility; placed horizontally in scar region Lymphedema Treatment Manual Lymphatic Drainage Location left subaxillary region and UE Duration 30 min PT-OP-T Assessment and Plan Start: 10/16/18 08:17 Freq: Status: Active Protocol: Document 04/07/19 17:15 GGD (Rec: 04/07/19 17:24 GGD [email or web address]) Physical Therapy Assessment Goals 5 Impairment Pt does not have an appropriate HEP for low back pain Short Term Goal (STG) Pt to be independent and compliant with an appropriate lumbar HEP STG Duration 03/07/19 4 Impairment not able to participate in usual exercise activities Long-Term Goal (LTG) Patient able to resume prior exercise activities without an increase in lymphedema 01/13/19: gradually increasing her activity level, has not been able to return to all activirties. LTG Duration 03/14/19 3 Impairment decreased soft tissue mobility left chest Long-Term Goal (LTG) Improve soft tissue mobility left chest to WNL 01/13/19: goal progress LTG Duration 03/14/19 2 Impairment decreased left shoulder ROM Short Term Goal (STG) Patient to be independent with HEP for purposes of improving left shoulder ROM (01/06/18: Progressing HEP.) STG Duration goal met Tank Hoop Bender Goal (LTG) Patient will attain full functional ROM of her left shoulder to allow her to reach overhead for purposes of ADL' s and household activities 01/13/19: goal progress LTG Duration 03/14/19 1 Impairment lymphedema left UE Long-Term Goal (LTG) Decrease lymphedema to stable level with no increase or decrease more than 1 cm over the course of 1 wk, patient to obtain appropriate compression garment and demonstrate good understanding of self-management including self-MLD and sequential lymphedema exercises 01/13/19: good goal progress LTG Duration 03/14/19 Assessment Summary Assessment Pt improving with shoulder ROM . Flexion improved to 153 in supine. Pt improving with pec muscle flexibility and decrease in tenderness. Physical Therapy Plan Frequency and Duration Frequency of Treatment 2-3x/wk Duration of Treatment 12 wks Plan of Care Start Date 02/05/19 Plan of Care End Date 04/30/19 Next Visit Focus/Plan Next Note Type Treatment Note Next Visit Plan Continue lymphedema management , scar mobs, Shoulder ROM.
--- NOTE | 2019-04-28 12:05 | PT.OTRE ---
Current Diagnoses Stiffness of unspecified hip, not elsewhere classified (04/28/19) Lumbago with sciatica, unspecified side (04/28/19) Muscle weakness (generalized) (04/28/19) Pain in right leg (04/28/19) Pain in left leg (04/28/19) Personal history of malignant neoplasm of breast (04/28/19) Past Medical History (Last Reviewed 04/21/19 @ 17:20 by Sylvie Roy DO) Anxiety (Chronic) Breast cancer (Resolved 1992) Breast cancer, left breast (Chronic 2016) Cataract (Resolved 2010) Chicken pox (Resolved) Diabetes mellitus (Chronic ~1987) Fractures (Resolved) GERD (gastroesophageal reflux disease) (Chronic) Hayfever (Chronic ~1959) History of recurrent ear infection (Resolved) Hyperlipidemia (Chronic ~1997) Hyperparathyroidism (Resolved 2013) Hypertension (Chronic ~1997) Lumbar spine pain (Chronic) Measles (Resolved) Osteopenia (Chronic) Osteoporosis (Chronic) Shoulder pain (Chronic 2014) Sternal fracture (Resolved 2014) Urinary incontinence (Chronic 2012) Vertigo (Resolved 2011) Surgical History (Last Reviewed 04/21/19 @ 17:20 by Sylvie Roy DO) Anesthesia complication (Resolved) H/O lumpectomy (Resolved) H/O mastectomy (Resolved) History of fusion of cervical spine (Resolved 2011) History of knee replacement (Resolved 2006) History of lumbar spinal fusion (Resolved 2009) History of lumbar spinal fusion (Resolved) Visit Care Team Role Provider Type Sylvie Roy DO Primary Care Provider Physician Specialty: Family Practice Address: [address] [place] [address], [facility] Email: [email or web address] Maki Vides MD Attending Provider Non-Staff Specialty: General Surgery Address: [address] [place] [address], [id number] Email: [email or web address] Physical Therapy Re-Evaluation PT-OP-A Visit Information Start: 10/16/18 08:17 Freq: Status: Active Protocol: Document 04/28/19 10:35 SAK (Rec: 04/28/19 11:55 SAK [id number]) Out-Patient Physical Therapy Visit Information Visit Information Visit Type Re-Evaluation Visit Start Time 10:30 Visit Stop Time 11:33 Total Visit Minutes 65 Visit Number 23 Number of CAVALRY OFFICER Visits 0 Evaluation Information Evaluation Date 10/16/18 PT-OP-B Current Condition Start: 10/16/18 08:17 Freq: Status: Active Protocol: Document 02/05/19 09:45 DCW (Rec: 02/05/19 17:44 DCW [id number]) Current Condition History of Current Condition Onset Date mastectomy left 2017 Current Complaints lymphedema History of Current Condition Radiation, no chemo. December 2017 left chest felt swollen and warm, painful, didn't see MD until April. States physician noted adhesions of tissue left chest. Dr. Diaz : ice and Lidocaine patches; still using but warmth decreased some. LYmphedema left chest and subaxillary area. Wanted to go to gym for UE ex but hasn't started yet per physician recommendation. ADDENDUM 02/05/19: Pt arrives with a new referral for her low back. Pt reports that one year ago, she had a nerve root impingement, and went to Dr Yoder. Following a caudal injection, she felt much better, however it is now beginning to wear off, and she is getting severe low back pain with radicular symptoms bilaterally, as well as muscle spasm through her low back and hips. Pt reports she has plans for another injection, however she was told it would also be helpful to attend 2-3 therapy sessions to learn some home stretches to decrease her muscle tone. Notes her pain is worst when first getting up in the morning. Future Testing and Treatments Planned MRI with possible biopsy Dr. Olivas 11/17/18 PT-OP-C Subjective Start: 10/16/18 08:17 Freq: Status: Active Protocol: Document 04/28/19 10:35 SAK (Rec: 04/28/19 11:55 SAK [id number]) OP-PT Subjective Patient Comments Patient Comments Since last seen reports she fell and ractured 3 ribs on left side; 2 wks ago caught toe on flower bed, and fell into mulch bed. C/o pain left lateral chest, increased due to helping care for a family of [address] due to hot spot right rib showed left rib fractures. Recent low back injection but pain persists and has worsened since caring for above children. Not sure how much PT whe will tolerate. PT-OP-F Manual Assessment Start: 10/16/18 08:17 Freq: Status: Active Protocol: Document 02/05/19 09:45 DCW (Rec: 02/05/19 17:44 DCW [id number]) Manual Assessments Soft Tissue Assessment Soft Tissue Mobility Assessment Tenderness to palpation 3/4: Wincing and withdraw QL, Piriformis, and ITB, R>L PT-OP-J Posture/Palpation/Skin Start: 10/16/18 08:17 Freq: Status: Active Protocol: Document 10/16/18 16:29 SAK (Rec: 10/16/18 17:14 SAK [id number]) Posture Evaluation Position Sitting Head/C-Spine Posture Forward Head T-Spine Posture Increased Kyphosis Shoulder Posture (L) Forward,(R) Forward Arm Posture (L) Internally Rotated,(R) Internally Rotated Skin Assessment Other Assessments Skin Assessment Comments left chest region with reddened appearance and moderately severe fibrosis and adherent soft tissue with poor mobility. PT-OP-K Range of Motion Start: 10/16/18 08:17 Freq: Status: Active Protocol: Document 02/05/19 09:45 DCW (Rec: 02/05/19 17:44 DCW [id number]) Lumbar Spine Range of Motion Lumbar Spine Active Degrees Testing Position Standing Flexion 40 Extension 15 Lateral Flexion Left 49 Lateral Flexion Right 48 Comments Lateral flexion measured in cm from floor to finger tips PT-OP-L Special Tests Start: 10/16/18 08:17 Freq: Status: Active Protocol: Document 02/05/19 09:45 DCW (Rec: 02/05/19 17:44 DCW [id number]) Special Tests Lumbar Spine Special Tests Standing Flexion Test Results Increased pain and stiffness Straight Leg Raise Test Results Positive ipsilateral pain Slump Test Results Positive bilaterally Hip Special Tests Farooq's test Test Results Positive bilaterally Piriformis Test Results Positive bilaterally PT-OP-M Strength Start: 10/16/18 08:17 Freq: Status: Active Protocol: Document 02/05/19 09:45 DCW (Rec: 02/05/19 17:44 DCW [id number]) Hip Strength Hip Manual Muscle Testing Bilateral Flexion (L2) 4- Good- Abduction 4+ Good+ Adduction 4+ Good+ External Rotation 4 Good Internal Rotation 4 Good Knee Strength Knee Manual Muscle Testing Bilateral Flexion (S2) 4- Good- Extension (L3) 4+ Good+ PT-OP-N Lymphedema Start: 10/16/18 08:17 Freq: Status: Active Protocol: Document 02/10/19 10:00 GGD (Rec: 02/10/19 10:28 GGD [id number]) Lymphedema Measurements Upper Extremity Circumference Measurements Left Affected MCP 18.1 cm Wrist 16 cm 5 cm From Distal Crease 16.5 cm 10 cm From Distal Crease 19.3 cm 15 cm From Distal Crease 23.8 cm 20 cm From Distal Crease 24.8 cm 25 cm From Distal Crease 27 cm 30 cm From Distal Crease 30.2 cm 35 cm From Distal Crease 31.8 cm 40 cm From Distal Crease 36.8 cm 45 cm From Distal Crease 38.2 cm PT-OP-Q Treatments Start: 10/16/18 08:17 Freq: Status: Active Protocol: Document 04/28/19 10:35 SAK (Rec: 04/28/19 11:55 SAK [id number]) Therapeutic Exercises Supine Exercises deep breathing Supine Exercise Name upper and lateral chest for gentle rib mobility Reps/Minutes 10x 1 Supine Exercise Name Shoulder ROM, flexion and ER, hor ab Comments gentle AAROM, mid range Manual Therapy Treatment Soft Tissue Mobilization left anterior chest Body Location scar tissue Mobilization Type Myofascial Release,Rolling, Other Intensity/Depth Superficial Body Position Hooklying Comments review of technique with patient for self-massage Taping left anterior chest Treatment Focus scar tissue Type of Tape Kinesio Tape Comments I strips for scar mobility; placed horizontally in scar region Lymphedema Treatment Manual Lymphatic Drainage Location left subaxillary region and UE Duration 30 min PT-OP-T Assessment and Plan Start: 10/16/18 08:17 Freq: Status: Active Protocol: Document 04/28/19 10:35 SAK (Rec: 04/28/19 11:55 SAK [id number]) Physical Therapy Assessment Goals 5 Impairment Pt does not have an appropriate HEP for low back pain Short Term Goal (STG) Pt to be independent and compliant with an appropriate lumbar HEP STG Duration goal met 4 Impairment not able to participate in usual exercise activities Jail Goal (LTG) Patient able to resume prior exercise activities without an increase in lymphedema 01/13/19: gradually increasing her activity level, has not been able to return to all activirties. 04/28/19: was making progress but rib fractures have made activity very difficult and limited. LTG Duration 07/29/19 3 Impairment decreased soft tissue mobility left chest Jail Goal (LTG) Improve soft tissue mobility left chest to WNL 01/13/19: goal progress 04/28/19: continues to progress. Will try chip bag in bra for further softening and mobility of tissue. Patient to consider obtaining lymphedema compression bra with sleeves. LTG Duration 07/29/19 2 Impairment decreased left shoulder ROM Short Term Goal (STG) Patient to be independent with HEP for purposes of improving left shoulder ROM (01/06/18: Progressing HEP.) STG Duration goal met Manager Marketing Communication Goal (LTG) Patient will attain full functional ROM of her left shoulder to allow her to reach overhead for purposes of ADL' s and household activities 01/13/19: goal progress 04/28/19: had been improving but decreased due to inability to perform exercises because of rib pain LTG Duration 07/29/19 1 Impairment lymphedema left UE Jail Goal (LTG) Decrease lymphedema to stable level with no increase or decrease more than 1 cm over the course of 1 wk, patient to obtain appropriate compression garment and demonstrate good understanding of self-management including self-MLD and sequential lymphedema exercises 01/13/19: good goal progress LTG Duration 07/29/19 Assessment Summary Assessment Circumferential measurements decreased in lower arm, increased toward axilla, and increased in chest, possibly due to recent rib injury. Discussed obtaining compression shirt or bra and was given information. Was instructed in modification of HEP due to pain from rib fractures, but importance of deep breathing exercises. Physical Therapy Plan Frequency and Duration Frequency of Treatment 2-3x/wk Duration of Treatment 12 wks Plan of Care Start Date 04/28/19 Plan of Care End Date 07/31/19 Next Visit Focus/Plan Next Note Type Treatment Note Next Visit Plan Continue PT treatment as tolerated for lymphedema management, modifications as necessary due to rib fractures . Patient to obtain lymphedema bra or shirt; given information today.
--- NOTE | 2019-05-18 17:40 | PT-OP ANOTE ---
cancelled PT appointment today
--- NOTE | 2019-06-10 16:28 | PT.OTN ---
Current Diagnoses Stiffness of unspecified hip, not elsewhere classified (06/10/19) Lumbago with sciatica, unspecified side (06/10/19) Muscle weakness (generalized) (06/10/19) Pain in right leg (06/10/19) Pain in left leg (06/10/19) Personal history of malignant neoplasm of breast (06/10/19) Physical Therapy Treatment Note PT-OP-A Visit Information Start: 10/16/18 08:17 Freq: Status: Active Protocol: Document 06/10/19 14:43 SAK (Rec: 06/10/19 16:27 SAK [id number]) Out-Patient Physical Therapy Visit Information Visit Information Visit Type Treatment Note Visit Start Time 14:30 Visit Stop Time 15:40 Total Visit Minutes 70 Visit Number 24 Number of MILLING MACHINE SET UP OPERATOR Visits 0 Evaluation Information Evaluation Date 10/16/18 PT-OP-B Current Condition Start: 10/16/18 08:17 Freq: Status: Active Protocol: Document 02/05/19 09:45 DCW (Rec: 02/05/19 17:44 DCW [id number]) Current Condition History of Current Condition Onset Date mastectomy left 2017 Current Complaints lymphedema History of Current Condition Radiation, no chemo. December 2017 left chest felt swollen and warm, painful, didn't see MD until April. States physician noted adhesions of tissue left chest. Dr. Diaz : ice and Lidocaine patches; still using but warmth decreased some. LYmphedema left chest and subaxillary area. Wanted to go to gym for UE ex but hasn't started yet per physician recommendation. ADDENDUM 02/05/19: Pt arrives with a new referral for her low back. Pt reports that one year ago, she had a nerve root impingement, and went to Dr Yoder. Following a caudal injection, she felt much better, however it is now beginning to wear off, and she is getting severe low back pain with radicular symptoms bilaterally, as well as muscle spasm through her low back and hips. Pt reports she has plans for another injection, however she was told it would also be helpful to attend 2-3 therapy sessions to learn some home stretches to decrease her muscle tone. Notes her pain is worst when first getting up in the morning. Future Testing and Treatments Planned MRI with possible biopsy Dr. Olivas 6/17/19 PT-OP-C Subjective Start: 10/16/18 08:17 Freq: Status: Active Protocol: Document 06/10/19 14:43 SAK (Rec: 06/10/19 16:27 SAK [id number]) OP-PT Subjective Patient Comments Patient Comments Mild improvement in rib pain. Not as good at exercises or massage as I should be due to holidays. Back pain persists , states she is doing HEP as instructed. PT-OP-F Manual Assessment Start: 10/16/18 08:17 Freq: Status: Active Protocol: Document 02/05/19 09:45 DCW (Rec: 02/05/19 17:44 DCW [id number]) Manual Assessments Soft Tissue Assessment Soft Tissue Mobility Assessment Tenderness to palpation 3/4: Wincing and withdraw QL, Piriformis, and ITB, R>L PT-OP-J Posture/Palpation/Skin Start: 10/16/18 08:17 Freq: Status: Active Protocol: Document 10/16/18 16:29 SAK (Rec: 10/16/18 17:14 SAK [id number]) Posture Evaluation Position Sitting Head/C-Spine Posture Forward Head T-Spine Posture Increased Kyphosis Shoulder Posture (L) Forward,(R) Forward Arm Posture (L) Internally Rotated,(R) Internally Rotated Skin Assessment Other Assessments Skin Assessment Comments left chest region with reddened appearance and moderately severe fibrosis and adherent soft tissue with poor mobility. PT-OP-K Range of Motion Start: 10/16/18 08:17 Freq: Status: Active Protocol: Document 02/05/19 09:45 DCW (Rec: 02/05/19 17:44 DCW [id number]) Lumbar Spine Range of Motion Lumbar Spine Active Degrees Testing Position Standing Flexion 40 Extension 15 Lateral Flexion Left 49 Lateral Flexion Right 48 Comments Lateral flexion measured in cm from floor to finger tips PT-OP-L Special Tests Start: 10/16/18 08:17 Freq: Status: Active Protocol: Document 02/05/19 09:45 DCW (Rec: 02/05/19 17:44 DCW [id number]) Special Tests Lumbar Spine Special Tests Standing Flexion Test Results Increased pain and stiffness Straight Leg Raise Test Results Positive ipsilateral pain Slump Test Results Positive bilaterally Hip Special Tests Farooq's test Test Results Positive bilaterally Piriformis Test Results Positive bilaterally PT-OP-M Strength Start: 10/16/18 08:17 Freq: Status: Active Protocol: Document 02/05/19 09:45 DCW (Rec: 02/05/19 17:44 DCW [id number]) Hip Strength Hip Manual Muscle Testing Bilateral Flexion (L2) 4- Good- Abduction 4+ Good+ Adduction 4+ Good+ External Rotation 4 Good Internal Rotation 4 Good Knee Strength Knee Manual Muscle Testing Bilateral Flexion (S2) 4- Good- Extension (L3) 4+ Good+ PT-OP-N Lymphedema Start: 10/16/18 08:17 Freq: Status: Active Protocol: Document 02/10/19 10:00 GGD (Rec: 02/10/19 10:28 GGD [id number]) Lymphedema Measurements Upper Extremity Circumference Measurements Left Affected MCP 18.1 cm Wrist 16 cm 5 cm From Distal Crease 16.5 cm 10 cm From Distal Crease 19.3 cm 15 cm From Distal Crease 23.8 cm 20 cm From Distal Crease 24.8 cm 25 cm From Distal Crease 27 cm 30 cm From Distal Crease 30.2 cm 35 cm From Distal Crease 31.8 cm 40 cm From Distal Crease 36.8 cm 45 cm From Distal Crease 38.2 cm PT-OP-Q Treatments Start: 10/16/18 08:17 Freq: Status: Active Protocol: Document 06/10/19 14:43 SAK (Rec: 06/10/19 15:52 SAK [id number]) Therapeutic Exercises Supine Exercises pelvic tilt Reps/Minutes 5x Comments reported decrease in back pain deep breathing Supine Exercise Name upper and lateral chest for gentle rib mobility Reps/Minutes 10x2 Comments verbal and manual facilitation SKTC Reps/Minutes 2x30 Comments DKTC with mod assist 1 Supine Exercise Name Shoulder ROM, flexion and ER, hor ab Comments gentle AAROM, mid range Sidelying Exercises 1 Sidelying Exercise Name Shoulder ROM, ABD, roll and reach Comments gentle, manual facil at trunk, pin and stretch with abd Manual Therapy Treatment Soft Tissue Mobilization left anterior chest Body Location scar tissue Mobilization Type Myofascial Release,Rolling, Other Intensity/Depth Superficial Body Position Hooklying Joint Mobilizations 1 Joint scapular mobilization left Direction all Grade II Body Position Sidelying Comments patient has difficulty relaxing Taping left anterior chest Treatment Focus scar tissue Type of Tape Kinesio Tape Comments I strips for scar mobility; placed horizontally in scar region Other Other Manual Treatments waist measurement take 40.5 for compression shirt. Lymphedema Treatment Manual Lymphatic Drainage Location left subaxillary region and UE Duration 30 min PT-OP-T Assessment and Plan Start: 10/16/18 08:17 Freq: Status: Active Protocol: Document 06/10/19 14:43 [facility] (Rec: 06/10/19 15:52 [facility] [id number]) Physical Therapy Assessment Goals 5 Impairment Pt does not have an appropriate HEP for low back pain Short Term Goal (STG) Pt to be independent and compliant with an appropriate lumbar HEP STG Duration goal met 4 Impairment not able to participate in usual exercise activities Penitentiary Goal (LTG) Patient able to resume prior exercise activities without an increase in lymphedema 01/13/19: gradually increasing her activity level, has not been able to return to all activirties. 04/28/19: was making progress but rib fractures have made activity very difficult and limited. LTG Duration 07/29/19 3 Impairment decreased soft tissue mobility left chest Dba Manager Goal (LTG) Improve soft tissue mobility left chest to WNL 01/13/19: goal progress 04/28/19: continues to progress. Will try chip bag in bra for further softening and mobility of tissue. Patient to consider obtaining lymphedema compression bra with sleeves. LTG Duration 07/29/19 2 Impairment decreased left shoulder ROM Short Term Goal (STG) Patient to be independent with HEP for purposes of improving left shoulder ROM (01/06/18: Progressing HEP.) STG Duration goal met Penitentiary Goal (LTG) Patient will attain full functional ROM of her left shoulder to allow her to reach overhead for purposes of ADL' s and household activities 01/13/19: goal progress 04/28/19: had been improving but decreased due to inability to perform exercises because of rib pain LTG Duration 07/29/19 1 Impairment lymphedema left UE Dba Manager Goal (LTG) Decrease lymphedema to stable level with no increase or decrease more than 1 cm over the course of 1 wk, patient to obtain appropriate compression garment and demonstrate good understanding of self-management including self-MLD and sequential lymphedema exercises 01/13/19: good goal progress LTG Duration 07/29/19 Assessment Summary Assessment decrease in soft tissue mobility anterior left chest after not being seen for PT for 6 wks. Has not yet ordered compression shirt or bra, waist measurement taken for her today; has chest measurement. Some improvement in upper chest breathing with cues and manual facilitation. Mild improvement in rib pain . Physical Therapy Plan Frequency and Duration Frequency of Treatment 2-3x/wk Duration of Treatment 12 wks Plan of Care Start Date 04/28/19 Plan of Care End Date 07/31/19 Next Visit Focus/Plan Next Note Type Treatment Note Next Visit Plan Continue PT treatment as tolerated for lymphedema management,
--- NOTE | 2019-06-16 08:57 | PT-OP ANOTE ---
cancel PT due to weather
--- NOTE | 2019-06-22 14:37 | PT.OTRE ---
Current Diagnoses Stiffness of unspecified hip, not elsewhere classified (06/22/19) Lumbago with sciatica, unspecified side (06/22/19) Muscle weakness (generalized) (06/22/19) Pain in right leg (06/22/19) Pain in left leg (06/22/19) Personal history of malignant neoplasm of breast (06/22/19) Past Medical History (Last Reviewed 04/28/19 @ 15:59 by ALEXSANDER Craig) Anxiety (Chronic) Breast cancer (Resolved 1992) Breast cancer, left breast (Chronic 2016) Cataract (Resolved 2010) Chicken pox (Resolved) Diabetes mellitus (Chronic ~1987) Fractures (Resolved) GERD (gastroesophageal reflux disease) (Chronic) Hayfever (Chronic ~1959) History of recurrent ear infection (Resolved) Hyperlipidemia (Chronic ~1997) Hyperparathyroidism (Resolved 2013) Hypertension (Chronic ~1997) Lumbar spine pain (Chronic) Measles (Resolved) Osteopenia (Chronic) Osteoporosis (Chronic) Shoulder pain (Chronic 2014) Sternal fracture (Resolved 2014) Urinary incontinence (Chronic 2012) Vertigo (Resolved 2011) Surgical History (Last Reviewed 04/28/19 @ 15:59 by ALEXSANDER Craig) Anesthesia complication (Resolved) H/O lumpectomy (Resolved) H/O mastectomy (Resolved) History of fusion of cervical spine (Resolved 2011) History of knee replacement (Resolved 2006) History of lumbar spinal fusion (Resolved 2009) History of lumbar spinal fusion (Resolved) Visit Care Team Role Provider Type Sylvie Roy DO Attending Provider Physician Primary Care Provider Specialty: Family Practice Address: [address] [place] [address], [facility] Email: [email or web address] Physical Therapy Re-Evaluation PT-OP-A Visit Information Start: 10/16/18 08:17 Freq: Status: Active Protocol: Document 06/22/19 08:15 VIKKI (Rec: 06/22/19 08:31 VIKKI [id number]) Out-Patient Physical Therapy Visit Information Visit Information Visit Type Treatment Note Visit Start Time 08:15 Visit Stop Time 09:32 Total Visit Minutes 77 Visit Number 25 Number of KNOWLEDGE ENGINEER Visits 0 Evaluation Information Evaluation Date 10/16/18 PT-OP-B Current Condition Start: 10/16/18 08:17 Freq: Status: Active Protocol: Document 02/05/19 09:45 DCW (Rec: 02/05/19 17:44 DC [id number]) Current Condition History of Current Condition Onset Date mastectomy left 2017 Current Complaints lymphedema History of Current Condition Radiation, no chemo. December 2017 left chest felt swollen and warm, painful, didn't see MD until April. States physician noted adhesions of tissue left chest. Dr. Diaz : ice and Lidocaine patches; still using but warmth decreased some. LYmphedema left chest and subaxillary area. Wanted to go to gym for UE ex but hasn't started yet per physician recommendation. ADDENDUM 02/05/19: Pt arrives with a new referral for her low back. Pt reports that one year ago, she had a nerve root impingement, and went to Dr Yoder. Following a caudal injection, she felt much better, however it is now beginning to wear off, and she is getting severe low back pain with radicular symptoms bilaterally, as well as muscle spasm through her low back and hips. Pt reports she has plans for another injection, however she was told it would also be helpful to attend 2-3 therapy sessions to learn some home stretches to decrease her muscle tone. Notes her pain is worst when first getting up in the morning. Future Testing and Treatments Planned MRI with possible biopsy Dr. Olivas 11/17/18 PT-OP-C Subjective Start: 10/16/18 08:17 Freq: Status: Active Protocol: Document 06/22/19 08:15 SAK (Rec: 06/22/19 08:31 SAK [id number]) OP-PT Subjective Patient Comments Patient Comments Patient reports she has been fairly compliant with HEP. C/ o left anterior chest pain, tightness toward the end of the day over the past week. I know I'm not having a heart attacK. Has been using ice. Has appointment with doctor soon. PT-OP-F Manual Assessment Start: 10/16/18 08:17 Freq: Status: Active Protocol: Document 02/05/19 09:45 DCW (Rec: 02/05/19 17:44 DC [id number]) Manual Assessments Soft Tissue Assessment Soft Tissue Mobility Assessment Tenderness to palpation 3/4: Wincing and withdraw QL, Piriformis, and ITB, R>L PT-OP-J Posture/Palpation/Skin Start: 10/16/18 08:17 Freq: Status: Active Protocol: Document 10/16/18 16:29 SAK (Rec: 10/16/18 17:14 SAK [id number]) Posture Evaluation Position Sitting Head/C-Spine Posture Forward Head T-Spine Posture Increased Kyphosis Shoulder Posture (L) Forward,(R) Forward Arm Posture (L) Internally Rotated,(R) Internally Rotated Skin Assessment Other Assessments Skin Assessment Comments left chest region with reddened appearance and moderately severe fibrosis and adherent soft tissue with poor mobility. PT-OP-K Range of Motion Start: 10/16/18 08:17 Freq: Status: Active Protocol: Document 02/05/19 09:45 DCW (Rec: 02/05/19 17:44 DCW [id number]) Lumbar Spine Range of Motion Lumbar Spine Active Degrees Testing Position Standing Flexion 40 Extension 15 Lateral Flexion Left 49 Lateral Flexion Right 48 Comments Lateral flexion measured in cm from floor to finger tips PT-OP-L Special Tests Start: 10/16/18 08:17 Freq: Status: Active Protocol: Document 02/05/19 09:45 DCW (Rec: 02/05/19 17:44 DCW [id number]) Special Tests Lumbar Spine Special Tests Standing Flexion Test Results Increased pain and stiffness Straight Leg Raise Test Results Positive ipsilateral pain Slump Test Results Positive bilaterally Hip Special Tests Farooq's test Test Results Positive bilaterally Piriformis Test Results Positive bilaterally PT-OP-M Strength Start: 10/16/18 08:17 Freq: Status: Active Protocol: Document 02/05/19 09:45 DCW (Rec: 02/05/19 17:44 DCW [id number]) Hip Strength Hip Manual Muscle Testing Bilateral Flexion (L2) 4- Good- Abduction 4+ Good+ Adduction 4+ Good+ External Rotation 4 Good Internal Rotation 4 Good Knee Strength Knee Manual Muscle Testing Bilateral Flexion (S2) 4- Good- Extension (L3) 4+ Good+ PT-OP-N Lymphedema Start: 10/16/18 08:17 Freq: Status: Active Protocol: Document 02/10/19 10:00 GGD (Rec: 02/10/19 10:28 GGD [id number]) Lymphedema Measurements Upper Extremity Circumference Measurements Left Affected MCP 18.1 cm Wrist 16 cm 5 cm From Distal Crease 16.5 cm 10 cm From Distal Crease 19.3 cm 15 cm From Distal Crease 23.8 cm 20 cm From Distal Crease 24.8 cm 25 cm From Distal Crease 27 cm 30 cm From Distal Crease 30.2 cm 35 cm From Distal Crease 31.8 cm 40 cm From Distal Crease 36.8 cm 45 cm From Distal Crease 38.2 cm PT-OP-Q Treatments Start: 10/16/18 08:17 Freq: Status: Active Protocol: Document 06/22/19 08:15 [facility] (Rec: 06/22/19 08:31 [facility] [id number]) Therapeutic Exercises Supine Exercises deep breathing Supine Exercise Name upper and lateral chest for gentle rib mobility Reps/Minutes 10x2 Comments verbal and manual facilitation wand shoulder Supine Exercise Name wand for abd and flexion Side left Reps/Minutes 10x ea motion Comments manual subscap and lat release with flex Sidelying Exercises 1 Sidelying Exercise Name Shoulder ROM, ABD, roll and reach Comments gentle, manual facil at trunk, pin and stretch with abd Other Exercises Cat/cow Reps/Minutes 10x Comments for thoracic mobility Manual Therapy Treatment Soft Tissue Mobilization left anterior chest Body Location scar tissue Mobilization Type Myofascial Release Intensity/Depth Superficial Body Position Hooklying Joint Mobilizations 1 Joint scapular mobilization left Direction all Grade II Body Position Sidelying Comments cues for deep breathing, relaxation Lymphedema Treatment Manual Lymphatic Drainage Location left subaxillary region and UE Duration 30 min PT-OP-T Assessment and Plan Start: 10/16/18 08:17 Freq: Status: Active Protocol: Document 06/22/19 08:15 [facility] (Rec: 06/22/19 08:31 [facility] [id number]) Physical Therapy Assessment Goals 5 Impairment Pt does not have an appropriate HEP for low back pain Short Term Goal (STG) Pt to be independent and compliant with an appropriate lumbar HEP STG Duration goal met 4 Impairment not able to participate in usual exercise activities Nursing Home Goal (LTG) Patient able to resume prior exercise activities without an increase in lymphedema 01/13/19: gradually increasing her activity level, has not been able to return to all activirties. 04/28/19: was making progress but rib fractures have made activity very difficult and limited. LTG Duration 07/29/19 3 Impairment decreased soft tissue mobility left chest Nursing Home Goal (LTG) Improve soft tissue mobility left chest to WNL 01/13/19: goal progress 04/28/19: continues to progress. Will try chip bag in bra for further softening and mobility of tissue. Patient to consider obtaining lymphedema compression bra with sleeves. LTG Duration 07/29/19 2 Impairment decreased left shoulder ROM Short Term Goal (STG) Patient to be independent with HEP for purposes of improving left shoulder ROM (01/06/18: Progressing HEP.) STG Duration goal met Nursing Home Goal (LTG) Patient will attain full functional ROM of her left shoulder to allow her to reach overhead for purposes of ADL' s and household activities 01/13/19: goal progress 04/28/19: had been improving but decreased due to inability to perform exercises because of rib pain LTG Duration 07/29/19 1 Impairment lymphedema left UE Nursing Home Goal (LTG) Decrease lymphedema to stable level with no increase or decrease more than 1 cm over the course of 1 wk, patient to obtain appropriate compression garment and demonstrate good understanding of self-management including self-MLD and sequential lymphedema exercises 01/13/19: good goal progress LTG Duration 07/29/19 Assessment Summary Assessment recommended patient go to doctor for left anterior chest pain. denied other symptoms with pain; no SOB, sweating, N /T. Improving shoulder ROM. Improved upper chest breathing Physical Therapy Plan Frequency and Duration Frequency of Treatment 2-3x/wk Duration of Treatment 12 wks Plan of Care Start Date 04/28/19 Plan of Care End Date 07/31/19 Next Visit Focus/Plan Next Note Type Treatment Note Next Visit Plan Continue PT treatment as tolerated for lymphedema management,
--- NOTE | 2019-06-29 09:51 | PT.OTN ---
Current Diagnoses Stiffness of unspecified hip, not elsewhere classified (06/29/19) Lumbago with sciatica, unspecified side (06/29/19) Muscle weakness (generalized) (06/29/19) Pain in right leg (06/29/19) Pain in left leg (06/29/19) Personal history of malignant neoplasm of breast (06/29/19) Physical Therapy Treatment Note PT-OP-A Visit Information Start: 10/16/18 08:17 Freq: Status: Active Protocol: Document 06/29/19 08:13 SAK (Rec: 06/29/19 08:29 SAK [id number]) Out-Patient Physical Therapy Visit Information Visit Information Visit Type Treatment Note Visit Start Time 08:15 Visit Stop Time 09:34 Total Visit Minutes 79 Visit Number 26 Number of OPTICAL GLASS WET INSPECTOR Visits 0 Evaluation Information Evaluation Date 10/16/18 PT-OP-B Current Condition Start: 10/16/18 08:17 Freq: Status: Active Protocol: Document 02/05/19 09:45 DCW (Rec: 02/05/19 17:44 DCW [id number]) Current Condition History of Current Condition Onset Date mastectomy left 2017 Current Complaints lymphedema History of Current Condition Radiation, no chemo. December 2017 left chest felt swollen and warm, painful, didn't see MD until April. States physician noted adhesions of tissue left chest. Dr. Diaz : ice and Lidocaine patches; still using but warmth decreased some. LYmphedema left chest and subaxillary area. Wanted to go to gym for UE ex but hasn't started yet per physician recommendation. ADDENDUM 02/05/19: Pt arrives with a new referral for her low back. Pt reports that one year ago, she had a nerve root impingement, and went to Dr Yoder. Following a caudal injection, she felt much better, however it is now beginning to wear off, and she is getting severe low back pain with radicular symptoms bilaterally, as well as muscle spasm through her low back and hips. Pt reports she has plans for another injection, however she was told it would also be helpful to attend 2-3 therapy sessions to learn some home stretches to decrease her muscle tone. Notes her pain is worst when first getting up in the morning. Future Testing and Treatments Planned MRI with possible biopsy Dr. Olivas 6/17/19 PT-OP-C Subjective Start: 10/16/18 08:17 Freq: Status: Active Protocol: Document 06/29/19 08:13 SAK (Rec: 06/29/19 08:29 SAK [id number]) OP-PT Subjective Patient Comments Patient Comments Anterior chest pain persists, agreeable to see physician about it, though states she also feels it when she stretches. Also c/o more of a heaviness in her chest when she walks but thinks may be due to not going to the gym. Has not obtained compression shirt yet, agreeable to go to [employer] due to difficulty finding one online. PT-OP-F Manual Assessment Start: 10/16/18 08:17 Freq: Status: Active Protocol: Document 02/05/19 09:45 DCW (Rec: 02/05/19 17:44 DCW [id number]) Manual Assessments Soft Tissue Assessment Soft Tissue Mobility Assessment Tenderness to palpation 3/4: Wincing and withdraw QL, Piriformis, and ITB, R>L PT-OP-J Posture/Palpation/Skin Start: 10/16/18 08:17 Freq: Status: Active Protocol: Document 10/16/18 16:29 [facility] (Rec: 10/16/18 17:14 [facility] [id number]) Posture Evaluation Position Sitting Head/C-Spine Posture Forward Head T-Spine Posture Increased Kyphosis Shoulder Posture (L) Forward,(R) Forward Arm Posture (L) Internally Rotated,(R) Internally Rotated Skin Assessment Other Assessments Skin Assessment Comments left chest region with reddened appearance and moderately severe fibrosis and adherent soft tissue with poor mobility. PT-OP-K Range of Motion Start: 10/16/18 08:17 Freq: Status: Active Protocol: Document 02/05/19 09:45 DCW (Rec: 02/05/19 17:44 DCW [id number]) Lumbar Spine Range of Motion Lumbar Spine Active Degrees Testing Position Standing Flexion 40 Extension 15 Lateral Flexion Left 49 Lateral Flexion Right 48 Comments Lateral flexion measured in cm from floor to finger tips PT-OP-L Special Tests Start: 10/16/18 08:17 Freq: Status: Active Protocol: Document 02/05/19 09:45 DCW (Rec: 02/05/19 17:44 DCW [id number]) Special Tests Lumbar Spine Special Tests Standing Flexion Test Results Increased pain and stiffness Straight Leg Raise Test Results Positive ipsilateral pain Slump Test Results Positive bilaterally Hip Special Tests Farooq's test Test Results Positive bilaterally Piriformis Test Results Positive bilaterally PT-OP-M Strength Start: 10/16/18 08:17 Freq: Status: Active Protocol: Document 02/05/19 09:45 DCW (Rec: 02/05/19 17:44 DCW [id number]) Hip Strength Hip Manual Muscle Testing Bilateral Flexion (L2) 4- Good- Abduction 4+ Good+ Adduction 4+ Good+ External Rotation 4 Good Internal Rotation 4 Good Knee Strength Knee Manual Muscle Testing Bilateral Flexion (S2) 4- Good- Extension (L3) 4+ Good+ PT-OP-N Lymphedema Start: 10/16/18 08:17 Freq: Status: Active Protocol: Document 02/10/19 10:00 GGD (Rec: 02/10/19 10:28 GGD [id number]) Lymphedema Measurements Upper Extremity Circumference Measurements Left Affected MCP 18.1 cm Wrist 16 cm 5 cm From Distal Crease 16.5 cm 10 cm From Distal Crease 19.3 cm 15 cm From Distal Crease 23.8 cm 20 cm From Distal Crease 24.8 cm 25 cm From Distal Crease 27 cm 30 cm From Distal Crease 30.2 cm 35 cm From Distal Crease 31.8 cm 40 cm From Distal Crease 36.8 cm 45 cm From Distal Crease 38.2 cm PT-OP-Q Treatments Start: 10/16/18 08:17 Freq: Status: Active Protocol: Document 06/29/19 08:13 SAK (Rec: 06/29/19 08:29 SAK [id number]) Therapeutic Exercises Supine Exercises supine on the beach pec stretch Reps/Minutes 10x5 deep breathing Supine Exercise Name upper and lateral chest for gentle rib mobility Reps/Minutes 10x2 Comments verbal and manual facilitation 1 Supine Exercise Name Shoulder ROM, flexion and ER, hor ab Sidelying Exercises 1 Sidelying Exercise Name Shoulder ROM, ABD, roll and reach Comments gentle, manual facil at trunk, pin and stretch with abd Other Exercises Cat/cow Reps/Minutes 10x Comments for thoracic mobility Manual Therapy Treatment Soft Tissue Mobilization left anterior chest Body Location scar tissue Mobilization Type Myofascial Release Intensity/Depth Superficial Body Position Hooklying Joint Mobilizations 1 Joint scapular mobilization left Direction all Grade II Body Position Sidelying Comments cues for deep breathing, relaxation Lymphedema Treatment Manual Lymphatic Drainage Location left subaxillary region and UE Duration 30 min PT-OP-T Assessment and Plan Start: 10/16/18 08:17 Freq: Status: Active Protocol: Document 06/29/19 08:13 VIKKI (Rec: 06/29/19 08:29 [facility] [id number]) Physical Therapy Assessment Goals 5 Impairment Pt does not have an appropriate HEP for low back pain Short Term Goal (STG) Pt to be independent and compliant with an appropriate lumbar HEP STG Duration goal met 4 Impairment not able to participate in usual exercise activities Ip Counsel Goal (LTG) Patient able to resume prior exercise activities without an increase in lymphedema 01/13/19: gradually increasing her activity level, has not been able to return to all activirties. 04/28/19: was making progress but rib fractures have made activity very difficult and limited. LTG Duration 07/29/19 3 Impairment decreased soft tissue mobility left chest Ip Counsel Goal (LTG) Improve soft tissue mobility left chest to WNL 01/13/19: goal progress 04/28/19: continues to progress. Will try chip bag in bra for further softening and mobility of tissue. Patient to consider obtaining lymphedema compression bra with sleeves. LTG Duration 07/29/19 2 Impairment decreased left shoulder ROM Short Term Goal (STG) Patient to be independent with HEP for purposes of improving left shoulder ROM (01/06/18: Progressing HEP.) STG Duration goal met Care Home Goal (LTG) Patient will attain full functional ROM of her left shoulder to allow her to reach overhead for purposes of ADL' s and household activities 01/13/19: goal progress 04/28/19: had been improving but decreased due to inability to perform exercises because of rib pain LTG Duration 07/29/19 1 Impairment lymphedema left UE Care Home Goal (LTG) Decrease lymphedema to stable level with no increase or decrease more than 1 cm over the course of 1 wk, patient to obtain appropriate compression garment and demonstrate good understanding of self-management including self-MLD and sequential lymphedema exercises 01/13/19: good goal progress LTG Duration 07/29/19 Assessment Summary Assessment Patient functional shoulder ROM improving with patient reporting improved ability to reach into upper cabinets. Working to make appointment with an oncologist as hers in an accident. Will go to [facility] for compression shirt consultation . Physical Therapy Plan Frequency and Duration Frequency of Treatment 2-3x/wk Duration of Treatment 12 wks Plan of Care Start Date 04/28/19 Plan of Care End Date 07/31/19 Next Visit Focus/Plan Next Note Type Treatment Note Next Visit Plan Continue PT treatment as tolerated for lymphedema management after this PT returns from continuing education class x 9 days.
--- NOTE | 2019-07-14 09:43 | PT.OTN ---
Current Diagnoses Stiffness of unspecified hip, not elsewhere classified (07/14/19) Lumbago with sciatica, unspecified side (07/14/19) Muscle weakness (generalized) (07/14/19) Pain in right leg (07/14/19) Pain in left leg (07/14/19) Personal history of malignant neoplasm of breast (07/14/19) Physical Therapy Treatment Note PT-OP-A Visit Information Start: 10/16/18 08:17 Freq: Status: Active Protocol: Document 07/14/19 08:16 SAK (Rec: 07/14/19 08:30 SAK [id number]) Out-Patient Physical Therapy Visit Information Visit Information Visit Type Treatment Note Visit Start Time 08:15 Visit Stop Time 09:27 Total Visit Minutes 72 Visit Number 27 Number of BAGGAGE SMASHER Visits 0 Evaluation Information Evaluation Date 10/16/18 PT-OP-B Current Condition Start: 10/16/18 08:17 Freq: Status: Active Protocol: Document 02/05/19 09:45 DCW (Rec: 02/05/19 17:44 DCW [id number]) Current Condition History of Current Condition Onset Date mastectomy left 2017 Current Complaints lymphedema History of Current Condition Radiation, no chemo. December 2017 left chest felt swollen and warm, painful, didn't see MD until April. States physician noted adhesions of tissue left chest. Dr. Diaz : ice and Lidocaine patches; still using but warmth decreased some. LYmphedema left chest and subaxillary area. Wanted to go to gym for UE ex but hasn't started yet per physician recommendation. ADDENDUM 02/05/19: Pt arrives with a new referral for her low back. Pt reports that one year ago, she had a nerve root impingement, and went to Dr Yoder. Following a caudal injection, she felt much better, however it is now beginning to wear off, and she is getting severe low back pain with radicular symptoms bilaterally, as well as muscle spasm through her low back and hips. Pt reports she has plans for another injection, however she was told it would also be helpful to attend 2-3 therapy sessions to learn some home stretches to decrease her muscle tone. Notes her pain is worst when first getting up in the morning. Future Testing and Treatments Planned MRI with possible biopsy Dr. Olivas 6/17/19 PT-OP-C Subjective Start: 10/16/18 08:17 Freq: Status: Active Protocol: Document 07/14/19 08:16 SAK (Rec: 07/14/19 08:30 SAK [id number]) OP-PT Subjective Patient Comments Patient Comments Going for bone density study and bloodwork. C/o ongoing increase in fatigue over past couple weeks after thelpin friend to hospital ER Going to be fit with compression shirt. PT-OP-F Manual Assessment Start: 10/16/18 08:17 Freq: Status: Active Protocol: Document 02/05/19 09:45 DCW (Rec: 02/05/19 17:44 DCW [id number]) Manual Assessments Soft Tissue Assessment Soft Tissue Mobility Assessment Tenderness to palpation 3/4: Wincing and withdraw QL, Piriformis, and ITB, R>L PT-OP-J Posture/Palpation/Skin Start: 10/16/18 08:17 Freq: Status: Active Protocol: Document 10/16/18 16:29 SAK (Rec: 10/16/18 17:14 SAK [id number]) Posture Evaluation Position Sitting Head/C-Spine Posture Forward Head T-Spine Posture Increased Kyphosis Shoulder Posture (L) Forward,(R) Forward Arm Posture (L) Internally Rotated,(R) Internally Rotated Skin Assessment Other Assessments Skin Assessment Comments left chest region with reddened appearance and moderately severe fibrosis and adherent soft tissue with poor mobility. PT-OP-K Range of Motion Start: 10/16/18 08:17 Freq: Status: Active Protocol: Document 02/05/19 09:45 DCW (Rec: 02/05/19 17:44 DCW [id number]) Lumbar Spine Range of Motion Lumbar Spine Active Degrees Testing Position Standing Flexion 40 Extension 15 Lateral Flexion Left 49 Lateral Flexion Right 48 Comments Lateral flexion measured in cm from floor to finger tips PT-OP-L Special Tests Start: 10/16/18 08:17 Freq: Status: Active Protocol: Document 02/05/19 09:45 DCW (Rec: 02/05/19 17:44 DCW [id number]) Special Tests Lumbar Spine Special Tests Standing Flexion Test Results Increased pain and stiffness Straight Leg Raise Test Results Positive ipsilateral pain Slump Test Results Positive bilaterally Hip Special Tests Farooq's test Test Results Positive bilaterally Piriformis Test Results Positive bilaterally PT-OP-M Strength Start: 10/16/18 08:17 Freq: Status: Active Protocol: Document 02/05/19 09:45 DCW (Rec: 02/05/19 17:44 DCW [id number]) Hip Strength Hip Manual Muscle Testing Bilateral Flexion (L2) 4- Good- Abduction 4+ Good+ Adduction 4+ Good+ External Rotation 4 Good Internal Rotation 4 Good Knee Strength Knee Manual Muscle Testing Bilateral Flexion (S2) 4- Good- Extension (L3) 4+ Good+ PT-OP-N Lymphedema Start: 10/16/18 08:17 Freq: Status: Active Protocol: Document 02/10/19 10:00 GGD (Rec: 02/10/19 10:28 GGD [id number]) Lymphedema Measurements Upper Extremity Circumference Measurements Left Affected MCP 18.1 cm Wrist 16 cm 5 cm From Distal Crease 16.5 cm 10 cm From Distal Crease 19.3 cm 15 cm From Distal Crease 23.8 cm 20 cm From Distal Crease 24.8 cm 25 cm From Distal Crease 27 cm 30 cm From Distal Crease 30.2 cm 35 cm From Distal Crease 31.8 cm 40 cm From Distal Crease 36.8 cm 45 cm From Distal Crease 38.2 cm PT-OP-Q Treatments Start: 10/16/18 08:17 Freq: Status: Active Protocol: Document 07/14/19 08:16 SAK (Rec: 07/14/19 08:30 SAK [id number]) Therapeutic Exercises Supine Exercises deep breathing Supine Exercise Name upper and lateral chest for gentle rib mobility Reps/Minutes 10x2 Comments verbal and manual facilitation 1 Supine Exercise Name Shoulder ROM, flexion and ER, hor ab Other Exercises Cat/cow Reps/Minutes 10x Comments for thoracic mobility Manual Therapy Treatment Soft Tissue Mobilization left anterior chest Body Location scar tissue Mobilization Type Myofascial Release Intensity/Depth Superficial Body Position Hooklying Joint Mobilizations 1 Joint scapular mobilization left Direction all Grade II Body Position Sidelying Comments cues for deep breathing, relaxation Lymphedema Treatment Manual Lymphatic Drainage Location left subaxillary region and UE Duration 30 min PT-OP-T Assessment and Plan Start: 10/16/18 08:17 Freq: Status: Active Protocol: Document 07/14/19 08:16 SAK (Rec: 07/14/19 08:30 SAK [id number]) Physical Therapy Assessment Goals 5 Impairment Pt does not have an appropriate HEP for low back pain Short Term Goal (STG) Pt to be independent and compliant with an appropriate lumbar HEP STG Duration goal met 4 Impairment not able to participate in usual exercise activities Longterm Goal (LTG) Patient able to resume prior exercise activities without an increase in lymphedema 01/13/19: gradually increasing her activity level, has not been able to return to all activirties. 04/28/19: was making progress but rib fractures have made activity very difficult and limited. LTG Duration 07/29/19 3 Impairment decreased soft tissue mobility left chest Longterm Goal (LTG) Improve soft tissue mobility left chest to WNL 01/13/19: goal progress 04/28/19: continues to progress. Will try chip bag in bra for further softening and mobility of tissue. Patient to consider obtaining lymphedema compression bra with sleeves. LTG Duration 07/29/19 2 Impairment decreased left shoulder ROM Short Term Goal (STG) Patient to be independent with HEP for purposes of improving left shoulder ROM (01/06/18: Progressing HEP.) STG Duration goal met [place] Goal (LTG) Patient will attain full functional ROM of her left shoulder to allow her to reach overhead for purposes of ADL' s and household activities 01/13/19: goal progress 04/28/19: had been improving but decreased due to inability to perform exercises because of rib pain LTG Duration 07/29/19 1 Impairment lymphedema left UE [place] Goal (LTG) Decrease lymphedema to stable level with no increase or decrease more than 1 cm over the course of 1 wk, patient to obtain appropriate compression garment and demonstrate good understanding of self-management including self-MLD and sequential lymphedema exercises 01/13/19: good goal progress LTG Duration 07/29/19 Assessment Summary Assessment Good response to MLD today, improving rib mobility, upper chest breathing for mobility. Hopeful for fitting with compression shirt today. Physical Therapy Plan Frequency and Duration Frequency of Treatment 2-3x/wk Duration of Treatment 12 wks Plan of Care Start Date 04/28/19 Plan of Care End Date 07/31/19 Next Visit Focus/Plan Next Note Type Treatment Note Next Visit Plan continue lymphedema management
--- NOTE | 2019-07-20 09:48 | PT.OTN ---
Current Diagnoses Stiffness of unspecified hip, not elsewhere classified (07/20/19) Lumbago with sciatica, unspecified side (07/20/19) Muscle weakness (generalized) (07/20/19) Pain in right leg (07/20/19) Pain in left leg (07/20/19) Personal history of malignant neoplasm of breast (07/20/19) Physical Therapy Treatment Note PT-OP-A Visit Information Start: 10/16/18 08:17 Freq: Status: Active Protocol: Document 07/20/19 08:12 SAK (Rec: 07/20/19 08:25 SAK [id number]) Out-Patient Physical Therapy Visit Information Visit Information Visit Type Treatment Note Visit Start Time 08:15 Visit Stop Time 09:27 Total Visit Minutes 77 Visit Number 28 Number of RAFTER CUTTING MACHINE OPERATOR Visits 0 Evaluation Information Evaluation Date 10/16/18 PT-OP-B Current Condition Start: 10/16/18 08:17 Freq: Status: Active Protocol: Document 02/05/19 09:45 DCW (Rec: 02/05/19 17:44 DCW [id number]) Current Condition History of Current Condition Onset Date mastectomy left 2017 Current Complaints lymphedema History of Current Condition Radiation, no chemo. December 2017 left chest felt swollen and warm, painful, didn't see MD until April. States physician noted adhesions of tissue left chest. Dr. Diaz : ice and Lidocaine patches; still using but warmth decreased some. LYmphedema left chest and subaxillary area. Wanted to go to gym for UE ex but hasn't started yet per physician recommendation. ADDENDUM 02/05/19: Pt arrives with a new referral for her low back. Pt reports that one year ago, she had a nerve root impingement, and went to Dr Yoder. Following a caudal injection, she felt much better, however it is now beginning to wear off, and she is getting severe low back pain with radicular symptoms bilaterally, as well as muscle spasm through her low back and hips. Pt reports she has plans for another injection, however she was told it would also be helpful to attend 2-3 therapy sessions to learn some home stretches to decrease her muscle tone. Notes her pain is worst when first getting up in the morning. Future Testing and Treatments Planned MRI with possible biopsy Dr. Olivas 6/17/19 PT-OP-C Subjective Start: 10/16/18 08:17 Freq: Status: Active Protocol: Document 07/20/19 08:12 SAK (Rec: 07/20/19 08:25 SAK [id number]) OP-PT Subjective Patient Comments Patient Comments Patiient reports going to [employer] to try compression shirts, didn't apply good enough compression, going to have Ballero style compression sleeve; on order. Patient exhaused after taking care of family with health and family issues last week. PT-OP-F Manual Assessment Start: 10/16/18 08:17 Freq: Status: Active Protocol: Document 02/05/19 09:45 DCW (Rec: 02/05/19 17:44 DCW [id number]) Manual Assessments Soft Tissue Assessment Soft Tissue Mobility Assessment Tenderness to palpation 3/4: Wincing and withdraw QL, Piriformis, and ITB, R>L PT-OP-J Posture/Palpation/Skin Start: 10/16/18 08:17 Freq: Status: Active Protocol: Document 10/16/18 16:29 [facility] (Rec: 10/16/18 17:14 [facility] [id number]) Posture Evaluation Position Sitting Head/C-Spine Posture Forward Head T-Spine Posture Increased Kyphosis Shoulder Posture (L) Forward,(R) Forward Arm Posture (L) Internally Rotated,(R) Internally Rotated Skin Assessment Other Assessments Skin Assessment Comments left chest region with reddened appearance and moderately severe fibrosis and adherent soft tissue with poor mobility. PT-OP-K Range of Motion Start: 10/16/18 08:17 Freq: Status: Active Protocol: Document 02/05/19 09:45 DCW (Rec: 02/05/19 17:44 DCW [id number]) Lumbar Spine Range of Motion Lumbar Spine Active Degrees Testing Position Standing Flexion 40 Extension 15 Lateral Flexion Left 49 Lateral Flexion Right 48 Comments Lateral flexion measured in cm from floor to finger tips PT-OP-L Special Tests Start: 10/16/18 08:17 Freq: Status: Active Protocol: Document 02/05/19 09:45 DCW (Rec: 02/05/19 17:44 DCW [id number]) Special Tests Lumbar Spine Special Tests Standing Flexion Test Results Increased pain and stiffness Straight Leg Raise Test Results Positive ipsilateral pain Slump Test Results Positive bilaterally Hip Special Tests Farooq's test Test Results Positive bilaterally Piriformis Test Results Positive bilaterally PT-OP-M Strength Start: 10/16/18 08:17 Freq: Status: Active Protocol: Document 02/05/19 09:45 DCW (Rec: 02/05/19 17:44 DCW [id number]) Hip Strength Hip Manual Muscle Testing Bilateral Flexion (L2) 4- Good- Abduction 4+ Good+ Adduction 4+ Good+ External Rotation 4 Good Internal Rotation 4 Good Knee Strength Knee Manual Muscle Testing Bilateral Flexion (S2) 4- Good- Extension (L3) 4+ Good+ PT-OP-N Lymphedema Start: 10/16/18 08:17 Freq: Status: Active Protocol: Document 02/10/19 10:00 GGD (Rec: 02/10/19 10:28 GGD [id number]) Lymphedema Measurements Upper Extremity Circumference Measurements Left Affected MCP 18.1 cm Wrist 16 cm 5 cm From Distal Crease 16.5 cm 10 cm From Distal Crease 19.3 cm 15 cm From Distal Crease 23.8 cm 20 cm From Distal Crease 24.8 cm 25 cm From Distal Crease 27 cm 30 cm From Distal Crease 30.2 cm 35 cm From Distal Crease 31.8 cm 40 cm From Distal Crease 36.8 cm 45 cm From Distal Crease 38.2 cm PT-OP-Q Treatments Start: 10/16/18 08:17 Freq: Status: Active Protocol: Document 07/20/19 08:12 SAK (Rec: 07/20/19 09:42 SAK [id number]) Therapeutic Exercises Supine Exercises supine on the beach pec stretch Reps/Minutes 10x5 1 Supine Exercise Name Shoulder ROM, flexion and ER, hor ab Comments manual with pin and stretch Manual Therapy Treatment Soft Tissue Mobilization left anterior chest Body Location scar tissue Mobilization Type Myofascial Release Intensity/Depth Superficial Body Position Hooklying Joint Mobilizations 1 Joint scapular mobilization left Direction all Grade II Body Position Sidelying Comments cues for deep breathing, relaxation Lymphedema Treatment Manual Lymphatic Drainage Location left subaxillary region and UE Duration 40 min Sequential Lymphedema Exercises Location UE Duration 10 min Patient Education Compression Garments discussed PT-OP-T Assessment and Plan Start: 10/16/18 08:17 Freq: Status: Active Protocol: Document 07/20/19 08:12 SAK (Rec: 07/20/19 08:25 SAK [id number]) Physical Therapy Assessment Goals 5 Impairment Pt does not have an appropriate HEP for low back pain Short Term Goal (STG) Pt to be independent and compliant with an appropriate lumbar HEP STG Duration goal met 4 Impairment not able to participate in usual exercise activities [facility] Goal (LTG) Patient able to resume prior exercise activities without an increase in lymphedema 01/13/19: gradually increasing her activity level, has not been able to return to all activirties. 04/28/19: was making progress but rib fractures have made activity very difficult and limited. LTG Duration 07/29/19 3 Impairment decreased soft tissue mobility left chest [place] Goal (LTG) Improve soft tissue mobility left chest to WNL 01/13/19: goal progress 04/28/19: continues to progress. Will try chip bag in bra for further softening and mobility of tissue. Patient to consider obtaining lymphedema compression bra with sleeves. LTG Duration 07/29/19 2 Impairment decreased left shoulder ROM Short Term Goal (STG) Patient to be independent with HEP for purposes of improving left shoulder ROM (01/06/18: Progressing HEP.) STG Duration goal met [facility] Goal (LTG) Patient will attain full functional ROM of her left shoulder to allow her to reach overhead for purposes of ADL' s and household activities 01/13/19: goal progress 04/28/19: had been improving but decreased due to inability to perform exercises because of rib pain LTG Duration 07/29/19 1 Impairment lymphedema left UE [place] Goal (LTG) Decrease lymphedema to stable level with no increase or decrease more than 1 cm over the course of 1 wk, patient to obtain appropriate compression garment and demonstrate good understanding of self-management including self-MLD and sequential lymphedema exercises 01/13/19: good goal progress LTG Duration 07/29/19 Assessment Summary Assessment Agree with Bolero-style compression for UE and trunk compression. ROM improved left shoulder. Physical Therapy Plan Frequency and Duration Frequency of Treatment 2-3x/wk Duration of Treatment 12 wks Plan of Care Start Date 04/28/19 Plan of Care End Date 07/31/19 Therapeutic Interventions Therapeutic Interventions Aquatic Therapy,Home Exercise Program,Lymphedema Management, Manual Therapy,Patient/ Caregiver Education,Self-Care/ Home Management,Soft Tissue Mobilization,Taping, Therapeutic Activities, Therapeutic Exercises Next Visit Focus/Plan Next Note Type Treatment Note Next Visit Plan continue lymphedema management . circumferential measurements
--- NOTE | 2019-07-27 09:55 | PT.OTRE ---
Current Diagnoses Stiffness of unspecified hip, not elsewhere classified (07/27/19) Lumbago with sciatica, unspecified side (07/27/19) Muscle weakness (generalized) (07/27/19) Pain in right leg (07/27/19) Pain in left leg (07/27/19) Personal history of malignant neoplasm of breast (07/27/19) Past Medical History (Last Reviewed 04/28/19 @ 15:59 by ALEXSANDER Craig) Anxiety (Chronic) Breast cancer (Resolved 1992) Breast cancer, left breast (Chronic 2016) Cataract (Resolved 2010) Chicken pox (Resolved) Diabetes mellitus (Chronic ~1987) Fractures (Resolved) GERD (gastroesophageal reflux disease) (Chronic) Hayfever (Chronic ~1959) History of recurrent ear infection (Resolved) Hyperlipidemia (Chronic ~1997) Hyperparathyroidism (Resolved 2013) Hypertension (Chronic ~1997) Lumbar spine pain (Chronic) Measles (Resolved) Osteopenia (Chronic) Osteoporosis (Chronic) Shoulder pain (Chronic 2014) Sternal fracture (Resolved 2014) Urinary incontinence (Chronic 2012) Vertigo (Resolved 2011) Surgical History (Last Reviewed 04/28/19 @ 15:59 by ALEXSANDER Craig) Anesthesia complication (Resolved) H/O lumpectomy (Resolved) H/O mastectomy (Resolved) History of fusion of cervical spine (Resolved 2011) History of knee replacement (Resolved 2006) History of lumbar spinal fusion (Resolved 2009) History of lumbar spinal fusion (Resolved) Visit Care Team Role Provider Type Sylvie Roy DO Attending Provider Physician Primary Care Provider Specialty: Family Practice Address: [address] [place] [address] Email: [email or web address] Physical Therapy Re-Evaluation PT-OP-A Visit Information Start: 10/16/18 08:17 Freq: Status: Active Protocol: Document 07/27/19 09:38 VIKKI (Rec: 07/27/19 09:54 VIKKI [id number]) Out-Patient Physical Therapy Visit Information Visit Information Visit Type Treatment Note Visit Start Time 08:15 Visit Stop Time 09:30 Total Visit Minutes 75 Visit Number 29 Number of [employer] Visits 0 Evaluation Information Evaluation Date 10/16/18 PT-OP-B Current Condition Start: 10/16/18 08:17 Freq: Status: Active Protocol: Document 02/05/19 09:45 DC (Rec: 02/05/19 17:44 DC [id number]) Current Condition History of Current Condition Onset Date mastectomy left 2017 Current Complaints lymphedema History of Current Condition Radiation, no chemo. December 2017 left chest felt swollen and warm, painful, didn't see MD until April. States physician noted adhesions of tissue left chest. Dr. Diaz : ice and Lidocaine patches; still using but warmth decreased some. LYmphedema left chest and subaxillary area. Wanted to go to gym for UE ex but hasn't started yet per physician recommendation. ADDENDUM 02/05/19: Pt arrives with a new referral for her low back. Pt reports that one year ago, she had a nerve root impingement, and went to Dr Yoder. Following a caudal injection, she felt much better, however it is now beginning to wear off, and she is getting severe low back pain with radicular symptoms bilaterally, as well as muscle spasm through her low back and hips. Pt reports she has plans for another injection, however she was told it would also be helpful to attend 2-3 therapy sessions to learn some home stretches to decrease her muscle tone. Notes her pain is worst when first getting up in the morning. Future Testing and Treatments Planned MRI with possible biopsy Dr. Olivas 11/17/18 PT-OP-C Subjective Start: 10/16/18 08:17 Freq: Status: Active Protocol: Document 07/27/19 09:38 SAK (Rec: 07/27/19 09:54 SAK [id number]) OP-PT Subjective Patient Comments Patient Comments Patient brought compression sleeve for evaluation, [facility] closed when she went up last Saturday so unable to obtain Ballero sleeve/bra. PT-OP-F Manual Assessment Start: 10/16/18 08:17 Freq: Status: Active Protocol: Document 02/05/19 09:45 DC (Rec: 02/05/19 17:44 DC [id number]) Manual Assessments Soft Tissue Assessment Soft Tissue Mobility Assessment Tenderness to palpation 3/4: Wincing and withdraw QL, Piriformis, and ITB, R>L PT-OP-J Posture/Palpation/Skin Start: 10/16/18 08:17 Freq: Status: Active Protocol: Document 10/16/18 16:29 SAK (Rec: 10/16/18 17:14 SAK [id number]) Posture Evaluation Position Sitting Head/C-Spine Posture Forward Head T-Spine Posture Increased Kyphosis Shoulder Posture (L) Forward,(R) Forward Arm Posture (L) Internally Rotated,(R) Internally Rotated Skin Assessment Other Assessments Skin Assessment Comments left chest region with reddened appearance and moderately severe fibrosis and adherent soft tissue with poor mobility. PT-OP-K Range of Motion Start: 10/16/18 08:17 Freq: Status: Active Protocol: Document 02/05/19 09:45 DCW (Rec: 02/05/19 17:44 DCW [id number]) Lumbar Spine Range of Motion Lumbar Spine Active Degrees Testing Position Standing Flexion 40 Extension 15 Lateral Flexion Left 49 Lateral Flexion Right 48 Comments Lateral flexion measured in cm from floor to finger tips PT-OP-L Special Tests Start: 10/16/18 08:17 Freq: Status: Active Protocol: Document 02/05/19 09:45 DCW (Rec: 02/05/19 17:44 DCW [id number]) Special Tests Lumbar Spine Special Tests Standing Flexion Test Results Increased pain and stiffness Straight Leg Raise Test Results Positive ipsilateral pain Slump Test Results Positive bilaterally Hip Special Tests Farooq's test Test Results Positive bilaterally Piriformis Test Results Positive bilaterally PT-OP-M Strength Start: 10/16/18 08:17 Freq: Status: Active Protocol: Document 02/05/19 09:45 DCW (Rec: 02/05/19 17:44 DCW [id number]) Hip Strength Hip Manual Muscle Testing Bilateral Flexion (L2) 4- Good- Abduction 4+ Good+ Adduction 4+ Good+ External Rotation 4 Good Internal Rotation 4 Good Knee Strength Knee Manual Muscle Testing Bilateral Flexion (S2) 4- Good- Extension (L3) 4+ Good+ PT-OP-N Lymphedema Start: 10/16/18 08:17 Freq: Status: Active Protocol: Document 02/10/19 10:00 GGD (Rec: 02/10/19 10:28 GGD [id number]) Lymphedema Measurements Upper Extremity Circumference Measurements Left Affected MCP 18.1 cm Wrist 16 cm 5 cm From Distal Crease 16.5 cm 10 cm From Distal Crease 19.3 cm 15 cm From Distal Crease 23.8 cm 20 cm From Distal Crease 24.8 cm 25 cm From Distal Crease 27 cm 30 cm From Distal Crease 30.2 cm 35 cm From Distal Crease 31.8 cm 40 cm From Distal Crease 36.8 cm 45 cm From Distal Crease 38.2 cm PT-OP-Q Treatments Start: 10/16/18 08:17 Freq: Status: Active Protocol: Document 07/27/19 09:[address] [facility] (Rec: 07/27/19 09:[address] [facility] [id number]) Therapeutic Exercises Supine Exercises supine on the beach pec stretch Reps/Minutes 10x5 deep breathing Supine Exercise Name upper and lateral chest for gentle rib mobility Reps/Minutes 10x2 Comments verbal and manual facilitation 1 Supine Exercise Name Shoulder ROM, flexion and ER, hor ab Comments manual with pin and stretch Manual Therapy Treatment Soft Tissue Mobilization left anterior chest Body Location scar tissue Mobilization Type Myofascial Release Intensity/Depth Superficial Body Position Hooklying Joint Mobilizations 1 Joint scapular mobilization left Direction all Grade II Body Position Sidelying Comments cues for deep breathing, relaxation Lymphedema Treatment Manual Lymphatic Drainage Location left subaxillary region and UE Duration 40 min Sequential Lymphedema Exercises Location UE Duration 10 min PT-OP-T Assessment and Plan Start: 10/16/18 08:17 Freq: Status: Active Protocol: Document 07/27/19 09:[address] [facility] (Rec: 07/27/19 09:[address] [facility] [id number]) Physical Therapy Assessment Goals 5 Impairment Pt does not have an appropriate HEP for low back pain Short Term Goal (STG) Pt to be independent and compliant with an appropriate lumbar HEP STG Duration goal met 4 Impairment not able to participate in usual exercise activities Nursing Home Goal (LTG) Patient able to resume prior exercise activities without an increase in lymphedema 01/13/19: gradually increasing her activity level, has not been able to return to all activirties. 04/28/19: was making progress but rib fractures have made activity very difficult and limited. 07/27/19: Due to busy schedule primarily of caregiving for others hasn't gotten back to full exercise program as previously; LTG Duration 08/03/19 3 Impairment decreased soft tissue mobility left chest Nursing Home Goal (LTG) Improve soft tissue mobility left chest to WNL 01/13/19: goal progress 04/28/19: continues to progress. Will try chip bag in bra for further softening and mobility of tissue. Patient to consider obtaining lymphedema compression bra with sleeves. 07/27/19: to obtain compression bra with sleeves this week ( vendor closed last week) and will be assessed at final visit LTG Duration 08/03/19 2 Impairment decreased left shoulder ROM Short Term Goal (STG) Patient to be independent with HEP for purposes of improving left shoulder ROM (01/06/18: Progressing HEP.) STG Duration goal met Unit Manager Goal (LTG) Patient will attain full functional ROM of her left shoulder to allow her to reach overhead for purposes of ADL' s and household activities 01/13/19: goal progress 04/28/19: had been improving but decreased due to inability to perform exercises because of rib pain 07/27/19: has improved but not fully achieved during recovery from rib fractures LTG Duration 08/03/19 1 Impairment lymphedema left UE Nursing Home Goal (LTG) Decrease lymphedema to stable level with no increase or decrease more than 1 cm over the course of 1 wk, patient to obtain appropriate compression garment and demonstrate good understanding of self-management including self-MLD and sequential lymphedema exercises 01/13/19: good goal progress 07/27/19: to obtain this week LTG Duration 08/03/19 Assessment Summary Assessment Patient to obtain compression sleeve/bra combination this week (vendor was closed last week). Patient is giving up a couple commitments to spend more time on self-care including her exercise program . Feel she will continue to make progress as she re- commits to this. Need 1 further PT visit to assess her compression garment and assure understanding of all self-care. Physical Therapy Plan Frequency and Duration Frequency of Treatment 1 visit Duration of Treatment 1 wks Plan of Care Start Date 07/27/19 Plan of Care End Date 08/03/19 Therapeutic Interventions Therapeutic Interventions Aquatic Therapy,Home Exercise Program,Lymphedema Management, Manual Therapy,Patient/ Caregiver Education,Self-Care/ Home Management,Soft Tissue Mobilization,Taping, Therapeutic Activities, Therapeutic Exercises Next Visit Focus/Plan Next Note Type Treatment Note Next Visit Plan Anticipate evaluation of new compression sleeve/bra combination (Ballero), discharge to independent self- management.
--- NOTE | 2019-07-27 09:55 | PT.OPPOC ---
Physical, Occupational & Speech Therapy At [facility] Current Diagnoses Stiffness of unspecified hip, not elsewhere classified (07/27/19) Lumbago with sciatica, unspecified side (07/27/19) Muscle weakness (generalized) (07/27/19) Pain in right leg (07/27/19) Pain in left leg (07/27/19) Personal history of malignant neoplasm of breast (07/27/19) Visit Care Team Role Provider Type Sylvie Roy DO Attending Provider Physician Primary Care Provider Specialty: Family Practice Address: [address] [place] [address], [place], [address] Email: [email or web address] Plan Of Care PT-OP-T Assessment and Plan Start: 10/16/18 08:17 Freq: Status: Active Protocol: Document 07/27/19 09:38 SAK (Rec: 07/27/19 09:54 SAK [id number]) Physical Therapy Assessment Goals 5 Impairment Pt does not have an appropriate HEP for low back pain Short Term Goal (STG) Pt to be independent and compliant with an appropriate lumbar HEP STG Duration goal met 4 Impairment not able to participate in usual exercise activities [employer] Goal (LTG) Patient able to resume prior exercise activities without an increase in lymphedema 01/13/19: gradually increasing her activity level, has not been able to return to all activirties. 04/28/19: was making progress but rib fractures have made activity very difficult and limited. 07/27/19: Due to busy schedule primarily of caregiving for others hasn't gotten back to full exercise program as previously; LTG Duration 08/03/19 3 Impairment decreased soft tissue mobility left chest Shelter Goal (LTG) Improve soft tissue mobility left chest to WNL 01/13/19: goal progress 04/28/19: continues to progress. Will try chip bag in bra for further softening and mobility of tissue. Patient to consider obtaining lymphedema compression bra with sleeves. 07/27/19: to obtain compression bra with sleeves this week ( vendor closed last week) and will be assessed at final visit LTG Duration 08/03/19 2 Impairment decreased left shoulder ROM Short Term Goal (STG) Patient to be independent with HEP for purposes of improving left shoulder ROM (01/06/18: Progressing HEP.) STG Duration goal met [employer] Feeder Goal (LTG) Patient will attain full functional ROM of her left shoulder to allow her to reach overhead for purposes of ADL' s and household activities 01/13/19: goal progress 04/28/19: had been improving but decreased due to inability to perform exercises because of rib pain 07/27/19: has improved but not fully achieved during recovery from rib fractures LTG Duration 08/03/19 1 Impairment lymphedema left UE [employer] Goal (LTG) Decrease lymphedema to stable level with no increase or decrease more than 1 cm over the course of 1 wk, patient to obtain appropriate compression garment and demonstrate good understanding of self-management including self-MLD and sequential lymphedema exercises 01/13/19: good goal progress 07/27/19: to obtain this week LTG Duration 08/03/19 Assessment Summary Assessment Patient to obtain compression sleeve/bra combination this week (vendor was closed last week). Patient is giving up a couple commitments to spend more time on self-care including her exercise program . Feel she will continue to make progress as she re- commits to this. Need 1 further PT visit to assess her compression garment and assure understanding of all self-care. Physical Therapy Plan Frequency and Duration Frequency of Treatment 1 visit Duration of Treatment 1 wks Plan of Care Start Date 07/27/19 Plan of Care End Date 08/03/19 Therapeutic Interventions Therapeutic Interventions Aquatic Therapy,Home Exercise Program,Lymphedema Management, Manual Therapy,Patient/ Caregiver Education,Self-Care/ Home Management,Soft Tissue Mobilization,Taping, Therapeutic Activities, Therapeutic Exercises Next Visit Focus/Plan Next Note Type Treatment Note Next Visit Plan Anticipate evaluation of new compression sleeve/bra combination (Ballero), discharge to independent self- management. Plan of Care Dates Plan of Care Start Date 07/27/19 Plan of Care End Date 08/03/19 Electronically Signed by: Lorena Chou, PT 07/27/19 [id number] Please Sign and Return: I have reviewed this Plan of Care and certify that the skilled therapy services above are required to meet the patient?s needs. Physician Signature Date Printed Name and Credentials Clinical Instructor Signature Printed Name and Credentials
--- NOTE | 2019-08-03 09:50 | PT.OTN ---
Current Diagnoses Stiffness of unspecified hip, not elsewhere classified (08/03/19) Lumbago with sciatica, unspecified side (08/03/19) Muscle weakness (generalized) (08/03/19) Pain in right leg (08/03/19) Pain in left leg (08/03/19) Personal history of malignant neoplasm of breast (08/03/19) Physical Therapy Treatment Note PT-OP-A Visit Information Start: 10/16/18 08:17 Freq: Status: Active Protocol: Document 08/03/19 09:37 SAK (Rec: 08/03/19 09:50 SAK [id number]) Out-Patient Physical Therapy Visit Information Visit Information Visit Type Treatment Note Visit Start Time 08:15 Visit Stop Time 09:33 Total Visit Minutes 78 Visit Number 30 Number of HEALTHC[employer] INSURANCE SALES AGENT Visits 0 Evaluation Information Evaluation Date 10/16/18 PT-OP-B Current Condition Start: 10/16/18 08:17 Freq: Status: Active Protocol: Document 02/05/19 09:45 DCW (Rec: 02/05/19 17:44 DCW [id number]) Current Condition History of Current Condition Onset Date mastectomy left 2017 Current Complaints lymphedema History of Current Condition Radiation, no chemo. December 2017 left chest felt swollen and warm, painful, didn't see MD until April. States physician noted adhesions of tissue left chest. Dr. Diaz : ice and Lidocaine patches; still using but warmth decreased some. LYmphedema left chest and subaxillary area. Wanted to go to gym for UE ex but hasn't started yet per physician recommendation. ADDENDUM 02/05/19: Pt arrives with a new referral for her low back. Pt reports that one year ago, she had a nerve root impingement, and went to Dr Yoder. Following a caudal injection, she felt much better, however it is now beginning to wear off, and she is getting severe low back pain with radicular symptoms bilaterally, as well as muscle spasm through her low back and hips. Pt reports she has plans for another injection, however she was told it would also be helpful to attend 2-3 therapy sessions to learn some home stretches to decrease her muscle tone. Notes her pain is worst when first getting up in the morning. Future Testing and Treatments Planned MRI with possible biopsy Dr. Olivas 6/17/19 PT-OP-C Subjective Start: 10/16/18 08:17 Freq: Status: Active Protocol: Document 08/03/19 09:37 SAK (Rec: 08/03/19 09:50 SAK [id number]) OP-PT Subjective Patient Comments Patient Comments Patient reports she got compression shirt as [employer] is a custom product. Will be ordering a second one as the only thing that bothers her is the high neck. Receptive to recommendation for swell spot for chest, please with the compression under her axilla. PT-OP-F Manual Assessment Start: 10/16/18 08:17 Freq: Status: Active Protocol: Document 02/05/19 09:45 DCW (Rec: 02/05/19 17:44 DCW [id number]) Manual Assessments Soft Tissue Assessment Soft Tissue Mobility Assessment Tenderness to palpation 3/4: Wincing and withdraw QL, Piriformis, and ITB, R>L PT-OP-J Posture/Palpation/Skin Start: 10/16/18 08:17 Freq: Status: Active Protocol: Document 10/16/18 16:29 SAK (Rec: 10/16/18 17:14 SAK [id number]) Posture Evaluation Position Sitting Head/C-Spine Posture Forward Head T-Spine Posture Increased Kyphosis Shoulder Posture (L) Forward,(R) Forward Arm Posture (L) Internally Rotated,(R) Internally Rotated Skin Assessment Other Assessments Skin Assessment Comments left chest region with reddened appearance and moderately severe fibrosis and adherent soft tissue with poor mobility. PT-OP-K Range of Motion Start: 10/16/18 08:17 Freq: Status: Active Protocol: Document 08/03/19 09:37 SAK (Rec: 08/03/19 09:50 [facility] [id number]) Shoulder Goniometric Range of Motion Shoulder Left Testing Position Supine Flexion 159 Horizontal Abduction 155 External Rotation at 45 degrees 65 Abduction Internal Rotation 60 right Shoulder ROM WFL Yes PT-OP-L Special Tests Start: 10/16/18 08:17 Freq: Status: Active Protocol: Document 02/05/19 09:45 DCW (Rec: 02/05/19 17:44 DCW [id number]) Special Tests Lumbar Spine Special Tests Standing Flexion Test Results Increased pain and stiffness Straight Leg Raise Test Results Positive ipsilateral pain Slump Test Results Positive bilaterally Hip Special Tests Farooq's test Test Results Positive bilaterally Piriformis Test Results Positive bilaterally PT-OP-M Strength Start: 10/16/18 08:17 Freq: Status: Active Protocol: Document 02/05/19 09:45 DCW (Rec: 02/05/19 17:44 DCW [id number]) Hip Strength Hip Manual Muscle Testing Bilateral Flexion (L2) 4- Good- Abduction 4+ Good+ Adduction 4+ Good+ External Rotation 4 Good Internal Rotation 4 Good Knee Strength Knee Manual Muscle Testing Bilateral Flexion (S2) 4- Good- Extension (L3) 4+ Good+ PT-OP-N Lymphedema Start: 10/16/18 08:17 Freq: Status: Active Protocol: Document 08/03/19 09:37 SAK (Rec: 08/03/19 09:50 [facility] [id number]) Lymphedema Measurements Upper Extremity Circumference Measurements Left Affected MCP 18.1 cm Wrist 18.6 cm 5 cm From Distal Crease 16.5 cm 10 cm From Distal Crease 17.2 cm 15 cm From Distal Crease 19.6 cm 20 cm From Distal Crease 23.5 cm 25 cm From Distal Crease 24.5 cm 30 cm From Distal Crease 26.4 cm 35 cm From Distal Crease 29.3 cm 40 cm From Distal Crease 32.9 cm 45 cm From Distal Crease 35.2 cm Axilla 34 cm PT-OP-Q Treatments Start: 10/16/18 08:17 Freq: Status: Active Protocol: Document 08/03/19 09:37 SAK (Rec: 08/03/19 09:50 [facility] [id number]) Therapeutic Exercises Supine Exercises deep breathing Supine Exercise Name upper and lateral chest for gentle rib mobility Reps/Minutes 10x2 Comments verbal and manual facilitation 1 Supine Exercise Name Shoulder ROM, flexion and ER, hor ab Comments manual with pin and stretch Manual Therapy Treatment Soft Tissue Mobilization left anterior chest Body Location scar tissue Mobilization Type Myofascial Release Intensity/Depth Superficial Body Position Hooklying Lymphedema Treatment Manual Lymphatic Drainage Location left subaxillary region and UE Duration 40 min Patient Education Compression Garments fit assessed, swell spot recommended Other Patient to order second compression shirt and discuss swell spots with patient PT-OP-T Assessment and Plan Start: 10/16/18 08:17 Freq: Status: Active Protocol: Document 08/03/19 09:37 SAK (Rec: 08/03/19 09:50 SAK [id number]) Physical Therapy Assessment Goals 5 Impairment Pt does not have an appropriate HEP for low back pain Short Term Goal (STG) Pt to be independent and compliant with an appropriate lumbar HEP STG Duration goal met 4 Impairment not able to participate in usual exercise activities Wirer Helper Goal (LTG) Patient able to resume prior exercise activities without an increase in lymphedema 01/13/19: gradually increasing her activity level, has not been able to return to all activirties. 04/28/19: was making progress but rib fractures have made activity very difficult and limited. 07/27/19: Due to busy schedule primarily of caregiving for others hasn't gotten back to full exercise program as previously; LTG Duration mostly met 3 Impairment decreased soft tissue mobility left chest Wirer Helper Goal (LTG) Improve soft tissue mobility left chest to WNL 01/13/19: goal progress 04/28/19: continues to progress. Will try chip bag in bra for further softening and mobility of tissue. Patient to consider obtaining lymphedema compression bra with sleeves. 07/27/19: to obtain compression bra with sleeves this week ( vendor closed last week) and will be assessed at final visit 08/03/19: good progress, patient to continue with HEP, massage , compression shirt, and try a Solaris swell spot as reccomended LTG Duration 08/03/19 2 Impairment decreased left shoulder ROM Short Term Goal (STG) Patient to be independent with HEP for purposes of improving left shoulder ROM (01/06/18: Progressing HEP.) STG Duration goal met [facility] Goal (LTG) Patient will attain full functional ROM of her left shoulder to allow her to reach overhead for purposes of ADL' s and household activities 01/13/19: goal progress 04/28/19: had been improving but decreased due to inability to perform exercises because of rib pain 07/27/19: has improved but not fully achieved during recovery from rib fractures LTG Duration goal met 1 Impairment lymphedema left UE Wirer Helper Goal (LTG) Decrease lymphedema to stable level with no increase or decrease more than 1 cm over the course of 1 wk, patient to obtain appropriate compression garment and demonstrate good understanding of self-management including self-MLD and sequential lymphedema exercises 01/13/19: good goal progress 07/27/19: to obtain this week LTG Duration goal met Assessment Summary Assessment Decreased trunk circumference by 2 cm with use of compression shirt, UE circumference stable. Physical Therapy Plan Frequency and Duration Frequency of Treatment 1 visit Duration of Treatment 1 wks Plan of Care Start Date 07/27/19 Plan of Care End Date 08/03/19 Therapeutic Interventions Therapeutic Interventions Aquatic Therapy,Home Exercise Program,Lymphedema Management, Manual Therapy,Patient/ Caregiver Education,Self-Care/ Home Management,Soft Tissue Mobilization,Taping, Therapeutic Activities, Therapeutic Exercises Discharge Physical Therapy Discharge Reasons Goals Met
== END 2019-08-04 13:16 | disposition home or self-care (01) ==
LOC: PHYS 08:15
PROVIDERS: PCP Family Medicine; Visit Provider Family Medicine
DX: Z85.3 Personal history of malignant neoplasm of breast (principal); M54.40 Lumbago with sciatica, unspecified side; M25.659 Stiffness of unspecified hip, not elsewhere classified; M62.81 Muscle weakness (generalized); M79.605 Pain in left leg; M79.604 Pain in right leg
CPT/HCPCS: 97110; 97140; 97162; 97164; 97535

== ENCOUNTER → 2019-10-14 13:39 | Outpatient (CLI) | payer MEDICARE, OTHER, SELFPAY ==
--- NOTE | 2019-10-14 13:45 | DI.CT.S_ITS ---
PROCEDURE: CT CHEST WO CON INDICATIONS: left chest pain, h/o left rib pathological fracture. TECHNIQUE: Noncontrast 5 mm thick sections acquired from the pulmonary apices to the posterior costophrenic angles. 1 mm lung window, 5 mm thick coronal and sagittal and 7 mm axial MIP reformats were then acquired. For radiation dose reduction, the following was used: automated exposure control, adjustment of mA and/or kV according to patient size. COMPARISON: [facility], CT, CT CHEST ABD PEL W CON, 04/15/2019, 8:57. FINDINGS: Image quality: Excellent. Lungs and pleura: No acute air space opacities. No pleural effusions or pneumothorax. Central and peripheral airways are patent and normal in caliber. Mediastinum: Heart size is normal. No pericardial effusion. No mediastinal adenopathy by size criteria. Thoracic aorta and central pulmonary arteries are normal in size. Esophagus is normal in caliber. No hiatal hernia. Bones and chest wall: No new suspicious bony lesions that would indicate presence of new osteolytic or blastic disease but there has been thinning of multiple ribs with associated non-united fractures along the left anterior chest wall, in an area of prior mastectomy and radiation therapy. In that area of new fracture is found, seen centered on series 3 image 170 when compared to the prior series 3 image 183 from 04/15/19.. No vertebral body compression fractures. No axillary or supraclavicular adenopathy by size criteria. Thyroid gland is not well-seen by this noncontrast technique. Abdomen: Visualized upper abdominal solid organs and bowel loops appear normal in the absence of contrast. IMPRESSION: There have been previously diagnosed anterior left rib fractures, presumably associated with post radiation change. These have remained stable in appearance without definite osseous union but a new anterior rib fracture has been identified in this area at approximately the junction of the middle and lower thirds of the anterior chest. This is detailed above by imaged level and compared to the pre-fracture image on the most recent CT scan, in the body of the report above. This is considered a fracture most likely secondary to radiation induced osteopenia rather than progression of metastatic disease. Dictated by: Marvin Corona M.D. on 10/14/2019 at 15:58 Approved by: Marvin Corona M.D. on 10/14/2019 at 16:05
== END ==
PROVIDERS: PCP Family Medicine; Referring Provider Internal Medicine Hematology & Oncology; Visit Provider Internal Medicine Hematology & Oncology
DX: R07.89 Other chest pain (principal); C50.912 Malignant neoplasm of unspecified site of left female breast; M84.48XA Pathological fracture, other site, initial encounter for fracture; Z87.311 Personal history of (healed) other pathological fracture
CPT/HCPCS: 71250

== ENCOUNTER → 2020-01-29 11:13 | Outpatient (CLI) | payer MEDICARE, OTHER, SELFPAY ==
--- NOTE | 2020-01-29 11:17 | DI.RAD.S_ITS ---
PROCEDURE: XR FOREARM RT 2V INDICATIONS: right arm pain, no injury TECHNIQUE: 2 views of the forearm were acquired. COMPARISON: None. FINDINGS: Bones: No fractures or dislocations. No suspicious bony lesions. Soft tissues: No suspicious soft tissue calcifications or masses. IMPRESSION: No acute radiographic findings. . Dictated by: Bing Gomes M.D. on 01/29/2020 at 15:18 Approved by: Bing Gomes M.D. on 01/29/2020 at 15:18
--- NOTE | 2020-01-29 11:17 | DI.RAD.S_ITS ---
PROCEDURE: XR HUMERUS RT 2V INDICATIONS: right arm pain, no injury TECHNIQUE: 2 views of the humerus were acquired. COMPARISON: None. FINDINGS: Bones: No fractures or dislocations. No suspicious bony lesions. Soft tissues: No suspicious soft tissue calcifications. IMPRESSION: No radiographic abnormalities. Dictated by: Bing Gomes M.D. on 01/29/2020 at 15:17 Approved by: Bing Gomes M.D. on 01/29/2020 at 15:17
== END ==
PROVIDERS: PCP Family Medicine; Referring Provider Nurse Practitioner Family; Visit Provider Nurse Practitioner Family
DX: M79.601 Pain in right arm (principal); Z85.3 Personal history of malignant neoplasm of breast
CPT/HCPCS: 73060; 73090

== ENCOUNTER → 2020-02-15 06:36 | Outpatient (CLI) | payer MEDICARE, OTHER, SELFPAY ==
--- NOTE | 2020-02-15 06:39 | DI.MRI.S_ITS ---
PROCEDURE: MR CERVICAL SPINE WO CON INDICATIONS: cervical radiculopathy TECHNIQUE: Noncontrast sagittal T1 spin echo and T2 fast spin echo, sagittal STIR, foraminal oblique sagittal T2 fast spin echo, and axial gradient echo or T2 fast spin echo through the cervical spine. COMPARISON: None. FINDINGS: Image quality: Suboptimal due to postsurgical changes at C3-C4 C5 related to ACDF with associated susceptibility hardware artifact. Alignment and Curvature: There is expected postoperative alignment. Bone Marrow: No fracture. Scattered degenerative subchondral sclerosis and spurring. Spinal Cord: Visualized spinal cord has normal size and signal. No cerebellar tonsillar herniation. Paraspinous Soft Tissues: No paravertebral masses. Prevertebral soft tissues are normal in thickness. C2-C3: Normal appearance. C3-C4: Normal appearance. C4-C5: Mild canal narrowing. No foraminal stenosis C5-C6: Mild left C5-C6 foraminal narrowing. No canal or right foraminal stenosis. C6-C7: No canal or foraminal stenosis. C7-T1: No canal or foraminal stenosis. IMPRESSION: Postsurgical changes related to C3-C5 ACDF. Elsewhere, mild C4-C5 canal narrowing. Mild left C5-C6 foraminal narrowing. Dictated by: Duran Olivas M.D. on 02/15/2020 at 12:00 Approved by: Duran Olivas M.D. on 02/15/2020 at 12:06
== END ==
PROVIDERS: PCP Family Medicine; Referring Provider Family Medicine; Visit Provider Family Medicine
DX: M54.12 Radiculopathy, cervical region (principal); M48.02 Spinal stenosis, cervical region; Z98.1 Arthrodesis status
CPT/HCPCS: 72141

== ENCOUNTER → 2020-03-15 08:41 | Outpatient (CLI) | payer MEDICARE, OTHER, SELFPAY ==
--- NOTE | 2020-03-15 08:44 | DI.CT.S_ITS ---
PROCEDURE: CT CHEST W CON INDICATIONS: breast cancer, left rib fracture TECHNIQUE: After the administration of intravenous contrast, 5 mm thick sections acquired from the pulmonary apices to the posterior costophrenic angles. 1 mm axial lung, 5 mm thick coronal and sagittal reformats and 7 mm axial MIP were acquired. For radiation dose reduction, the following was used: automated exposure control, adjustment of mA and/or kV according to patient size. COMPARISON: [facility], CT, CT CHEST ABD PEL W CON, 04/15/2019, 8:57. [facility], CT, CT CHEST WO CON, 10/14/2019, 13:40. FINDINGS: Image quality: Excellent. Lungs and pleura: No acute air space opacities. No mass or significant pulmonary nodules. The pulmonary nodule previously seen in the lateral right lower lobe on CT 04/15/2019, (3/196) is no longer seen. No pleural effusions or pneumothorax. Central and peripheral airways are patent and normal in caliber. Mediastinum: Heart size is normal. No pericardial effusion. No mediastinal or hilar adenopathy by size criteria. Thoracic aorta and central pulmonary arteries are normal in size. Esophagus is normal in caliber. No hiatal hernia. Bones and chest wall: Left mastectomy. Trace persistent seroma, (2/40). Chest wall thickening. Left axillary lymph node dissection. Small right axillary lymph node is unchanged since at least 04/15/2019. Increased conspicuity of the left anterolateral 6th rib fracture, (2/37). Otherwise stable appearance of the left anterolateral 2nd-5th and 7th anterior rib fractures. Stable sternal fracture, (602/88). L2 pedicle screw partially visualized. Cervical spine ACDF C5-C7. No aggressive appearing osseous lesion. No vertebral body compression fractures. Thyroid gland is unchanged. Abdomen: A few well-circumscribed hypodensities in the liver are unchanged since 04/15/2019 and have the appearance of benign cysts. Subcutaneous nodule measuring 1.1 cm at the right posterior lateral lower chest wall is unchanged since 2019 and most likely represents a sebaceous cyst, (2/44). No adrenal nodule. IMPRESSION: 1. Stable left mastectomy and left axillary lymph node dissection. 2. Increased conspicuity of the left anterior lateral 6th rib fracture compared to the prior CT. Otherwise stable appearance of the left anterior lateral 2-7th rib fractures. Stable appearance of the sternal fracture. Findings most compatible with traumatic injury. -If there is absence of a traumatic injury and concern for metastatic disease consider PET/CT for further evaluation. 3. Lungs are clear. No significant pulmonary nodules. Please ensure continued screening mammogram of the right breast. Dictated by: Anuel King M.D. on 03/15/2020 at 10:38 Approved by: Anuel King M.D. on 03/15/2020 at 11:06
== END ==
PROVIDERS: PCP Family Medicine; Referring Provider Internal Medicine Hematology & Oncology; Visit Provider Internal Medicine Hematology & Oncology
DX: C50.912 Malignant neoplasm of unspecified site of left female breast (principal); S22.42XA Multiple fractures of ribs, left side, initial encounter for closed fracture; Z90.12 Acquired absence of left breast and nipple; Z98.1 Arthrodesis status
CPT/HCPCS: 71260; Q9967

== ENCOUNTER 2020-05-12 15:17 | Emergency (ER) | payer MEDICARE, OTHER, SELFPAY ==
[2020-05-12] VITALS (10 sets, daily range): BP systolic 155–184; BP diastolic 72–84; PULSE 62–77; RESP 14–18; TEMP 36.5; O2SAT 95–99; BMI 33.5
--- NOTE | 2020-05-12 15:38 | ED_ITS ---
HPI - General Adult General Chief complaint: Dizziness Stated complaint: vertigo Time Seen by Provider: 05/12/20 15:26 Source: patient Mode of arrival: Ambulatory Limitations: no limitations History of Present Illness HPI narrative: Patient is a 74-year-old female. States that 6 years ago she had an episode of vertigo which she states was diagnosed as BPPV. She states that it improved with a Kenneth maneuver. Has not had any issues since that time. Two days ago had slight headache. She woke up yesterday and short time after she woke up developed which she said was vertigo. She states that it was positional . She did her own Kenneth maneuver at home which she reported resolved her symptoms. Last evening started develop a small amount of vertigo but it was much less than what it was during the day. She went to sleep last night without any problems. Woke up this morning without any symptoms. Short time after she woke up she developed the same symptoms she had yesterday once again. She attempted the Kenneth maneuver couple more times at home without any improvement. She then went to the walk-in clinic. The Kenneth maneuver was attempted again and she was given Zofran and meclizine without any improvement of her symptoms. She was sent to the emergency department. She does report that loud noises cause her symptoms to be worse. When she is sitting and looking straight forward she is not having any vertigo. Is when she lays back in turns her head to the left is when the symptoms present. Related Data Home Medications Medication Instructions Recorded Confirmed calcium carbonate [Calci-Chew] 600 mg PO QDAY #0 05/21/17 05/12/20 cholecalciferol (vitamin D3) 2,000 unit PO QDAY #0 06/20/17 05/12/20 cyanocobalamin (vitamin B-12) 1,000 mcg PO DAILY 02/28/18 05/12/20 [Vitamin B-12] vit C,I-Ov-zrobl-lutein-zeaxan 1 cap PO BID 02/28/18 05/12/20 [PreserVision AREDS 2] coenzyme Q10 100 mg capsule 100 mg PO DAILY 05/02/18 05/12/20 glimepiride 2 mg tablet 4 mg PO QAM tab 08/27/18 05/12/20 insulin aspart U-100 SUBCUT 01/29/20 05/12/20 metformin 500 mg tablet,extended 1,000 mg PO tab 01/29/20 05/12/20 release 24 hr Previous Rx's Medication Instructions Recorded pen needle, diabetic 31 gauge x #100 each 03/03/1810/16 lidocaine 5 % topical patch 2 patch TOP DAILY #60 each 03/24/18 insulin glargine 100 unit/mL (3 5 unit SUBCUT HS #15 ml 06/09/18 mL) subcutaneous pen blood sugar diagnostic #200 each 04/20/19 amlodipine 10 mg tablet 10 mg PO DAILY #90 tab 08/17/19 escitalopram oxalate 10 mg tablet 10 mg PO QDAY #90 tab 08/17/19 gabapentin 300 mg capsule 900 mg PO BEDTIME #270 cap 08/17/19 losartan 100 mg tablet 100 mg PO DAILY #90 tab 08/17/19 metoprolol tartrate 100 mg tablet 100 mg PO BID #180 tab 08/17/19 hydrocodone-acetaminophen 1 tab PO Q4H PRN #90 tab 10/13/19 atorvastatin 10 mg tablet 10 mg PO HS #30 tab 10/30/19 diclofenac sodium 1 % topical gel 2 gram TOP QID #100 gram 01/29/20 diclofenac sodium 75 mg 75 mg PO BID #60 tab 02/24/20 tablet,delayed release zolpidem 10 mg tablet 5 mg PO BEDTIME PRN #45 tab 02/25/20 diazepam [Valium] 5 mg PO BID PRN #10 tab 05/12/20 meclizine 25 mg PO TID PRN #12 tab 05/12/20 ondansetron HCl [Zofran] 4 mg PO Q6H PRN #10 tab 05/12/20 Allergies Allergy/AdvReac Type Severity Reaction Status Date / Time Anesthetics - Amide Type - Allergy Intermediate PROJECTILE Verified 05/12/20 13:38 Select A VOMITING [Anesthetics - Amide Type] Anesthetics - Keke Type- Allergy Intermediate PROJECTILE Verified 05/12/20 13:38 Parabens VOMITING [Anesthetics - Keke Type] Review of Systems Constitutional Constitutional: Denies fatigue, Denies fever(s) and Reports headache(s) Eyes Eyes: Denies change in vision and Denies diplopia ENT Ears, Nose, Mouth, and Throat: Reports vertigo, Reports headache(s) and Denies sinus pain Cardiovascular Cardiovascular: Denies chest pain, Denies lightheadedness and Denies dyspnea Respiratory Respiratory: Denies cough and Denies dyspnea Gastrointestinal Gastrointestinal: Denies abdominal pain, Denies change in bowel habits and Reports nausea Genitourinary Genitourinary: Denies dysuria Genitourinary: Denies dysuria Musculoskeletal Musculoskeletal: Denies arthralgias and Denies myalgias Integumentary/Breasts Skin/Breast: Denies lesions and Denies rash Neurologic Neurologic: Denies abnormal speech, Denies behavioral changes, Reports vertigo and Reports headache(s) Psychiatric Psychiatric: Denies behavioral changes Endocrine Endocrine: Denies fatigue Hematologic/Lymphatic Hematologic/Lymphatic: Denies easy bleeding and Denies easy bruising Allergic/Immunologic Allergic/Immunologic: Denies urticaria Patient History Medical History Anxiety Breast cancer (1992) Breast cancer, left breast (2016) Cataract (2010) Chicken pox Diabetes mellitus (~1987) Fractures GERD (gastroesophageal reflux disease) Hayfever (~1959) History of recurrent ear infection Hyperlipidemia (~1997) Hyperparathyroidism (2013) Hypertension (~1997) Impingement syndrome of right shoulder Lumbar spine pain Measles Osteopenia Osteoporosis Right arm pain Shoulder pain (2014) Sternal fracture (2014) Urinary incontinence (2012) Vertigo (2011) Surgical History Anesthesia complication H/O lumpectomy H/O mastectomy History of fusion of cervical spine (2011) History of knee replacement (2006) History of lumbar spinal fusion (2009) History of lumbar spinal fusion Family History Father Hypertension High cholesterol Pneumonia Mother Hypertension Mental health problem Stroke History of hip surgery Grandfather Heart disease Hypertension High cholesterol Grandmother Hypertension High cholesterol Social History marital status: household members: spouse occupational status: other Smoking Status: Never smoker alcohol intake: never substance use type: does not use Smoking Status: Never smoker alcohol intake frequency: 0-2 drinks per day Substance Use Type: does not use Exam Initial Vital Signs Initial Vital Signs: Vital Signs Temperature 97.7 F 05/12/20 15:20 Pulse Rate 62 05/12/20 15:20 Respiratory Rate 18 05/12/20 15:20 Blood Pressure 184/84 H 05/12/20 15:20 Pulse Oximetry 99 05/12/20 15:20 Const General: cooperative and comfortable Limitations: mental status not altered HENMT Head: normal to inspection and normocephalic Nose: external nose normal Face and sinus: normal facial exam Eyes General: appearance normal, both eyes and all related structures Resp Effort & Inspection: normal respiratory effort Cardio Rate: regular rate Skin Lesions: no lesions Rashes: no rashes Neuro General: patient alert, patient awake and patient oriented x3 Cognition: normal cognition Speech: speech normal Motor: muscle tone normal throughout Sensory Exam: no sensory deficits noted Other: Patient is sitting and looking straight forward not having any symptoms. If she sits up straight and turns her head to the left and right it does not produce any symptoms. Laying the patient back does not produce any symptoms however she is lying back in turn her head to the left, [place]-Hallpike maneuver to the left, this does reproduce her symptoms. She does get slight symptoms with lying back in turning her head to the right although not as intense as turning her head to the left. Extrem General: capillary refill normal Psych Appearance: well kempt Scores GCS [place] coma scale eye opening: Spontaneous Scar coma scale verbal response: Orientated Scar coma scale motor response: Obey commands [place] coma scale total score: 15 Course Orders Ordered: ED Orders 05/12/20 16:15 Complete Blood Count AUTO DIFF Stat 05/12/20 16:50 Basic Metabolic Panel Stat Discontinued Medications Diazepam (Diazepam 5 Mg Tablet) 5 mg PO NOW ONE Stop: 05/12/20 15:40 Last Admin: 05/12/20 16:18 Dose: 5 mg Documented by: PATTIE Sodium Chloride (Normal Saline 0.9%) 1,000 mls @ 1,000 mls/hr IV BOLUS ONE Stop: 05/12/20 16:38 Last Infusion: 05/12/20 18:03 Dose: 0 mls/hr Documented by: Admin: 05/12/20 16:18 Dose: 1,000 mls/hr Documented by: PATTIE Ondansetron HCl (Ondansetron 4 Mg/2 Ml Inj) 4 mg IV NOW ONE Stop: 05/12/20 15:40 Last Admin: 05/12/20 16:18 Dose: 4 mg Documented by: RSTONE Ondansetron HCl (Ondansetron 4 Mg/2 Ml Inj) 4 mg IV NOW ONE Stop: 05/12/20 18:04 Last Admin: 05/12/20 18:10 Dose: 4 mg Documented by: PATTIE Vital Signs Vital signs: Vital Signs - 8 hr 05/12/20 15:20 05/12/20 15:27 05/12/20 16:35 Temperature 97.7 F Pulse Rate 62 64 Respiratory Rate 18 Blood Pressure 184/84 H 184/84 H Pulse Oximetry 99 95 05/12/20 16:40 05/12/20 16:45 05/12/20 17:51 Temperature Pulse Rate 67 65 66 Respiratory Rate 14 Blood Pressure 155/72 H 155/72 H Pulse Oximetry 97 98 97 05/12/20 17:53 05/12/20 18:00 Temperature Pulse Rate 69 77 Respiratory Rate Blood Pressure Pulse Oximetry 97 96 Medical Decision Making Lab Data Lab results reviewed: Yes I reviewed the patient's lab results. Result diagrams: 05/12/20 16:15 05/12/20 16:50 Labs: Lab Results 05/12/20 05/12/20 Range/Units 16:15 16:50 WBC 9.4 (4.5-11.0) X10^3/uL RBC 4.37 (4.0-5.2) X10^6/uL Hgb 12.7 (12.0-16.0) g/dL Hct 37.8 (36-46) % MCV 86.4 (80-100) fL MCH 29.0 (26-34) PG MCHC 33.6 (30-36) % RDW 14.4 (11.6-14.8) % Plt Count 260 (150-400) X10^3/uL Neut % (Auto) 84.5 H (50-75) % Lymph % (Auto) 8.7 L (25-40) % [place] % (Auto) 5.7 (3-14) % Eos % (Auto) 0.3 L (2-4) % Baso % (Auto) 0.8 (0-2) % Neut # (Auto) 8000 H (1854-0209) /uL Lymph # (Auto) 800 L (0341-5972) /uL [place] # (Auto) 500 (0-900) /uL Eos # (Auto) 0 (0-450) /uL Baso # (Auto) 100 (0-100) /uL Sodium 136 L (137-145) mmol/L Potassium 3.8 (3.4-5.1) mmol/L Chloride 102 (98-107) mmol/L Carbon Dioxide 31 (22-32) mmol/L BUN 23 H (7-17) mg/dL Creatinine 0.85 (0.52-1.04) mg/dL Estimated GFR > 60.0 (>60) mL/min BUN/Creatinine Ratio 27.1 H (6-22) Glucose 195 H (80-110) mg/dL Calcium 8.7 (8.4-10.2) mg/dL Point of Care Testing Glucose POC 236 Point of care testing: Point of Care Testing Glucose POC 236 MDM Narrative Medical decision making narrative: Patient does have a positive [place]-Hallpike maneuver to the left with fatigable nystagmus that does not have a rotary component to it. I do feel that her symptoms today are peripheral vertigo. We attempted the Kenneth maneuver 2 times and this did seem to improve her symptoms somewhat however she still is having vertigo symptoms. Feel we can hold on a head CT. Will send home with symptom treatment and have her contact the ENT group for follow-up. Her medicines were electronically transmitted to the pharmacy of her choice. She was given return precautions. She expressed understanding and agreement. Discharge Plan Departure Patient Disposition: Home Clinical Impression: Vertigo Instructions: DI for Vertigo Activity Restrictions/Additional Instructions: Recommend that you continue to take all of your medications as directed I also recommend you contact the [facility] ENT group for a follow-up. Continue to do the Kenneth maneuver like we discussed. [facility] [place] Your blood sugar today was just above 190. Prescriptions: New ondansetron HCl [Zofran] 4 mg tablet 4 mg PO Q6H PRN (Reason: nausea and vomiting) Qty: 10 RF: 0 meclizine 25 mg tablet 25 mg PO TID PRN (Reason: dizziness) Qty: 12 RF: 0 diazepam [Valium] 5 mg tablet 5 mg PO BID PRN (Reason: dizziness) Qty: 10 RF: 0 No Action (DME) Blood Glucose Test Strip See Rx Instructions .ROUTE .MEDSUPPLY Qty: 200 RF: 11 calcium carbonate [Calci-Chew] 500 MG tablet,chewable 600 mg PO QDAY Qty: 0 RF: 0 cholecalciferol (vitamin D3) 5,000 UNIT capsule 2,000 unit PO QDAY Qty: 0 RF: 0 (DME) pen needle, diabetic [1st Tier Unifine Pentips] 31 gauge x 5/16 needle See Dose Instructions .ROUTE .MEDSUPPLY Qty: 100 RF: 11 insulin glargine [Basaglar KwikPen U-100 Insulin] 100 unit/mL (3 mL) insulin pen 5 unit SUBCUT HS Qty: 15 RF: 1 amlodipine 10 mg tablet 10 mg PO DAILY Qty: 90 RF: 3 metoprolol tartrate [Lopressor] 100 mg tablet 100 mg PO BID Qty: 180 RF: 3 gabapentin 300 mg capsule 900 mg PO BEDTIME Qty: 270 RF: 3 losartan 100 mg tablet 100 mg PO DAILY Qty: 90 RF: 3 escitalopram oxalate [Lexapro] 10 mg tablet 10 mg PO QDAY Qty: 90 RF: 3 Hold Instructions: med change atorvastatin [Lipitor] 10 mg tablet 10 mg PO HS Qty: 30 RF: 0 zolpidem 10 mg tablet 5 mg PO BEDTIME PRN (Reason: sleep) Qty: 45 RF: 0 diclofenac sodium [Voltaren] 1 % gel 2 gram TOP QID Qty: 100 RF: 0 metformin 500 mg tablet extended release 24 hr 1,000 mg PO RF: 0 insulin aspart U-100 SUBCUT RF: 0 coenzyme Q10 [CoQ-10] 100 mg capsule 100 mg PO DAILY RF: 0 glimepiride 2 mg tablet 4 mg PO QAM RF: 0 lidocaine 5 % adhesive patch,medicated 2 patch TOP DAILY Qty: 60 RF: 1 cyanocobalamin (vitamin B-12) [Vitamin B-12] 1,000 mcg Tablet 1,000 mcg PO DAILY RF: 0 PreserVision AREDS-2 [id number] aq-ermb-he-mg Capsule 1 cap PO BID RF: 0 hydrocodone-acetaminophen 5-325 mg Tablet 1 tab PO Q4H PRN (Reason: left chest pain, breast cacner) Qty: 90 RF: 0 diclofenac sodium 75 mg tablet,delayed release (DR/EC) 75 mg PO BID Qty: 60 RF: 2 Referrals: Sylvie Roy DO [Primary Care Provider] -
[2020-05-12] MEDS: ONDANSETRON 4 MG/2 ML INJ IV ×2 (16:18→18:10)
[2020-05-12] MEDS: diazePAM 5 MG TABLET PO (16:18)
[2020-05-12] MEDS: SODIUM CHLORIDE 0.9% 1,000 ML 1000 ML IV (16:18)
[2020-05-12 16:20] LABS: Add Manual Diff / Slide Review NO; Basophils Absolute Auto 100 /uL (0-100); Basophils Percent Auto 0.8 % (0-2); Eosinophils Absolute Auto 0 /uL (0-450); Eosinophils Percent Auto 0.3 % (2-4); Hematocrit 37.8 % (36-46); Hemoglobin 12.7 g/dL (12.0-16.0); Lymphocytes Absolute Auto 800 /uL (1100-4500); Lymphocytes Percent Auto 8.7 % (25-40); Mean Corpuscular HGB Conc 33.6 % (30-36); Mean Corpuscular Volume 86.4 fL (80-100); Monocytes Absolute Auto 500 /uL (0-900); Monocytes Percent Auto 5.7 % (3-14); Neutrophils Absolute Auto 8000 /uL (1500-7000); Neutrophils Percent Auto 84.5 % (50-75); Platelet Count 260 X10^3/uL (150-400); Red Blood Cell Count 4.37 X10^6/uL (4.0-5.2); Red Cell Distribution Width 14.4 % (11.6-14.8); White Blood Cell Count 9.4 X10^3/uL (4.5-11.0)
[2020-05-12 17:07] LABS: BUN Creatinine Ratio 27.1 (6-22); Blood Urea Nitrogen 23 mg/dL (7-17); Calcium 8.7 mg/dL (8.4-10.2); Carbon Dioxide 31 mmol/L (22-32); Chloride 102 mmol/L (98-107); Estimated Glomerular Filt Rate > 60.0 mL/min (>60); Glucose 195 mg/dL (80-110); HEMOLYSIS < 15 (0-50); Potassium 3.8 mmol/L (3.4-5.1); Sodium 136 mmol/L (137-145)
== END 2020-05-12 19:11 | disposition home or self-care (01) ==
PROVIDERS: Emergency Provider Emergency Medicine; PCP Family Medicine
DX: R42 Dizziness and giddiness (principal); R51.9 Headache, unspecified
CPT/HCPCS: 36415; 80048; 82962; 85025; 96361; 96374; 96376; 99281; 99284; J2405

== ENCOUNTER 2020-05-24 09:45 | Outpatient (RCR) | payer MEDICARE, OTHER, SELFPAY ==
--- NOTE | 2020-01-28 09:33 | PT.OIE ---
Current Diagnoses Unspecified urinary incontinence (01/26/20) Past Medical History (Last Reviewed 01/07/20 @ 13:30 by Yang Cosme MD) Anxiety (Chronic) Breast cancer (Resolved 1992) Breast cancer, left breast (Chronic 2016) Cataract (Resolved 2010) Chicken pox (Resolved) Diabetes mellitus (Chronic ~1987) Fractures (Resolved) GERD (gastroesophageal reflux disease) (Chronic) Hayfever (Chronic ~1959) History of recurrent ear infection (Resolved) Hyperlipidemia (Chronic ~1997) Hyperparathyroidism (Resolved 2013) Hypertension (Chronic ~1997) Lumbar spine pain (Chronic) Measles (Resolved) Osteopenia (Chronic) Osteoporosis (Chronic) Shoulder pain (Chronic 2014) Sternal fracture (Resolved 2014) Urinary incontinence (Chronic 2012) Vertigo (Resolved 2011) Past Surgical History (Last Reviewed 01/07/20 @ 13:30 by Yang Cosme MD) Anesthesia complication (Resolved) H/O lumpectomy (Resolved) H/O mastectomy (Resolved) History of fusion of cervical spine (Resolved 2011) History of knee replacement (Resolved 2006) History of lumbar spinal fusion (Resolved 2009) History of lumbar spinal fusion (Resolved) Visit Care Team Role Provider Type Sylvie Roy DO Attending Provider Physician Primary Care Provider Referring Provider Specialty: [facility] Address: [address] [place] [address], [facility] Email: [email or web address] Physical Therapy Initial Evaluation PT-OP-A Visit Information Start: 01/26/20 13:00 Freq: Status: Active Protocol: Document 01/26/20 13:05 [facility] (Rec: 01/26/20 13:08 [facility] [id number]) Out-Patient Physical Therapy Visit Information Visit Information Visit Type Initial Evaluation Visit Start Time 13:00 Visit Stop Time 13:45 Total Visit Minutes 45 Visit Number 1 Evaluation Information Evaluation Date 01/26/20 PT-OP-B Current Condition Start: 01/26/20 13:00 Freq: Status: Active Protocol: Document 01/26/20 13:05 [facility] (Rec: 01/26/20 13:08 [facility] [id number]) Current Condition History of Current Condition Onset Date 2019 Current Complaints Urinary incontinence History of Current Condition Jennifer is a 73 year old female with past medical history of left breast invasive ductal carcinoma and lumpectomy axillary node dissection in . She underwent radiation therapy followed by 5 years of tamoxifen. She suffered a ipsilateral new breast cancer in 2017. SHe underwent a mastectomy by Dr. Monzon on November 08 2016. In 2018 Jennifer had a fall landing on her left side and fracturing her ribs. This caused considerable pain. She gets quite a bit of pain from the mastectomy. She has been treated in our clinic previously for bladder leakage and had seen improvments. After her fall she stopped exercising due to pain and her bladder symptoms retunred. At this point she feels like has no control. Especially at night, even if she gets up to go to the bathroom she is soaked through her pad. Wakes up at 5-6 am and normally sleeps 8 hours. Goes to sleep close to 12:30 am then sleeps unitl 8:30 am. past medical history also includes type II diabetes and uses a C pap, she has a history of lumbar fusion and a pin in the SI joint. The daytime symptoms are not as bad. She has regular voiding schedules. Wears a pad # 5 during the day. Uses 3-4 pads per day and changes into a heavy duty pad for the night . Coughing increases urinary leakage. She can experience bowel urgency. Treatment Goals Patient/Caregiver Goals Pts goals are to decrease urinary leakage and improve strength of the pelvic floor Current Functional Impairments (Reported) Functional Limitations- ADL's Leaking is increased with light activity, changing positions such as sit-stand, walking ot the bathroom and witha strong urge to void. PT-OP-I Pelvic Floor Start: 01/26/20 13:00 Freq: Status: Active Protocol: Document 01/26/20 09:09 [facility] (Rec: 01/28/20 09:17 [facility] [id number]) Pelvic Floor Assessment Urine Pelvic Floor Surgery No Urinary Symptoms Urge Sensation,Dribbling After Urination,Incomplete Emptying Leakage Size Large Leakage Cause Cough,Exercise,Lifting,Sneeze, Urge Leaks Per Day constant throughout the day Voiding Frequency 5 times per day Nocturia yes Pads Used In 24 Hours 5 Urine Pad Type Maxi Pad Pelvic Clock Pelvic Clock 12-3 Atrophy Pelvic Clock 3-6 Atrophy Pelvic Clock 6-9 Atrophy Pelvic Clock 9-12 Atrophy Contraction Ability Voluntary Contraction Weak Voluntary Relaxation Weak Manual Muscle Testing Left 2 Manual Muscle Testing Right 2 Manual Muscle Testing Anterior 2 Manual Muscle Testing Posterior 2 Muscle Endurance (Seconds) 4 PT-OP-J Posture/Palpation/Skin Start: 01/26/20 13:00 Freq: Status: Active Protocol: Document 01/26/20 09:09 [facility] (Rec: 01/28/20 09:17 [facility] [id number]) Posture Evaluation Comments Posture Comments pt sits in a forward flexed posture and has tightness under her rib cage which can contribute to pressure downward on her bladder. PT-OP-M Strength Start: 01/26/20 13:00 Freq: Status: Active Protocol: Document 01/26/20 09:09 [facility] (Rec: 01/28/20 09:17 [facility] [id number]) Trunk Strength Trunk Manual Muscle Testing Flexion 3 Fair Core Stabilization Poor core stabilization with poor ability to activate the transverse abdominal muscle Hip Strength Hip Manual Muscle Testing Right Extension (S1) 3 Fair Abduction 2+ Poor+ Adduction 2+ Poor+ Left Extension (S1) 2+ Poor+ Abduction 2+ Poor+ External Rotation 2+ Poor+ Comments difficulty performing a bridge from a supine position PT-OP-Q Treatments Start: 01/26/20 13:00 Freq: Status: Active Protocol: Document 01/26/20 09:09 [facility] (Rec: 01/28/20 09:17 [facility] [id number]) Therapeutic Exercises Supine Exercises supine roll outs Supine Exercise Name Theraband roll outs in supine Side bilateral deep breathing Supine Exercise Name diaphragmatic breathing Side bilateral Reps/Minutes 10 reps inhale for 4 exhale for 6 counts PT-OP-T Assessment and Plan Start: 01/26/20 13:00 Freq: Status: Active Protocol: Document 01/26/20 09:09 [facility] (Rec: 01/28/20 09:17 [facility] [id number]) Physical Therapy Assessment Rehab Potential Rehabilitation Potential Good Evaluation Complexity Number of Personal Factors/Comorbidities 1-2 Number of Body Systems Impaired 3 Clinical Presentation at Evaluation Evolving Impairments Impairments Activity Tolerance,Functional Activities,Soft Tissue Mobility,Strength Goals 5 Impairment Decreased endurance of the pelvic floor musculature Short Term Goal (STG) jennifer is able to sustain a pelvic floor contraction x 10 seconds in supine STG Duration 5 weeks 4 Impairment Light activity and housework causes urinary leakage Mcfp Goal (LTG) Jennifer is able to perform ADL's around her house without leakage LTG Duration 8 weeks 3 Impairment Nocturia with nighttime leakage Business Employment Specialist Goal (LTG) jennifer is able to wake up in the moring with a dry pad LTG Duration 8 weeks 2 Impairment Weakness of the levator ani 2/ 5 MMT Mcfp Goal (LTG) Jennifer has improved recruitment of the levator ani andtest 3/ 5 or better for all regions of the pelvic clock LTG Duration 8 weeks 1 Impairment Urinary incontinence constant throughout the day Business Employment Specialist Goal (LTG) Jennifer is able to reduce incontinence and is able to limit pad use from 5 per day to 0-1 pads per day LTG Duration 8 weeks Assessment Summary Assessment Jennifer is a 73 year old female previously seen in our clinic for pelvic floor strengthening . She returns to PT today with worsening symptoms of urinary stress and urge incontinence. In 2019 Jennifer had a fall landing on the left side of her body and sustained rib fractures. She stopped exercising at this point and she feels this is when her symptoms of urinary incontinence began to worsen. She has a history of left sided breast cancer with local recurrence. She has undergone radiation and also has chronic rib fractures from the radiation. SHe underwent lumbar fusion L2-L4 in 2009, cervical fusion in 2011, and pelvic pins in 2015. At this point in time Jennifer reports feeling that she leaks all day. She also wakes up wet at night despite getting up to use the bathroom at night. With examination today Jennifer is very weak in her levator ani musculature with 2/5 MMT. There is both a rectocele and cystocele present. Jennifer has poor endurance contractions of her pelvic floor. She is also very weak in her transverse abdominal musculature and hip ER that provide stabilization to her pelvis. Her lumbar spine is fused so there is very little movement in her lumbar spine, she has difficulty with pelvic tilts. Treatment for Jennifer will include Core stabilization in modified positions, EMG biofeedback will be used to help with neuromuscular awareness, postural education and body mechanics training will be included in her plan of care. Thank you for this referral. Physical Therapy Plan Frequency and Duration Frequency of Treatment 1x/Week Duration of Treatment 8 Plan of Care Start Date 01/26/20 Plan of Care End Date 03/22/20 Therapeutic Interventions Therapeutic Interventions Home Exercise Program, Neuromuscular Re-education, Patient/Caregiver Education, Self-Care/Home Management,Soft Tissue Mobilization, Therapeutic Activities Modalities Biofeedback Next Visit Focus/Plan Next Note Type Treatment Note Next Visit Plan Begin EMG biofeedback for neuro awareness of the pelvic floor and to begin endurance training of the pelvic floor.
--- NOTE | 2020-01-28 09:33 | PT.OPPOC ---
Physical, Occupational & Speech Therapy At [facility] Current Diagnoses Unspecified urinary incontinence (01/26/20) Visit Care Team Role Provider Type Sylvie Roy DO Attending Provider Physician Primary Care Provider Referring Provider Specialty: Family Practice Address: [address] [place] [address], [place], [address] Email: [email or web address] Plan Of Care PT-OP-T Assessment and Plan Start: 01/26/20 13:00 Freq: Status: Active Protocol: Document 01/26/20 09:09 [facility] (Rec: 01/28/20 09:17 [facility] [id number]) Physical Therapy Assessment Rehab Potential Rehabilitation Potential Good Evaluation Complexity Number of Personal Factors/Comorbidities 1-2 Number of Body Systems Impaired 3 Clinical Presentation at Evaluation Evolving Impairments Impairments Activity Tolerance,Functional Activities,Soft Tissue Mobility,Strength Goals 5 Impairment Decreased endurance of the pelvic floor musculature Short Term Goal (STG) Lois is able to sustain a pelvic floor contraction x 10 seconds in supine STG Duration 5 weeks 4 Impairment Light activity and housework causes urinary leakage Detention Goal (LTG) Lois is able to perform ADL's around her house without leakage LTG Duration 8 weeks 3 Impairment Nocturia with nighttime leakage Detention Goal (LTG) Lois is able to wake up in the morning with a dry pad LTG Duration 8 weeks 2 Impairment Weakness of the levator ani 2/ 5 MMT Detention Goal (LTG) Lois has improved recruitment of the levator ani and test 3/ 5 or better for all regions of the pelvic clock LTG Duration 8 weeks 1 Impairment Urinary incontinence constant throughout the day Detention Goal (LTG) Lois is able to reduce incontinence and is able to limit pad use from 5 per day to 0-1 pads per day LTG Duration 8 weeks Assessment Summary Assessment Lois is a 73 year old female previously seen in our clinic for pelvic floor strengthening . She returns to PT today with worsening symptoms of urinary stress and urge incontinence. In 2019 Lois had a fall landing on the left side of her body and sustained rib fractures. She stopped exercising at this point and she feels this is when her symptoms of urinary incontinence began to worsen. She has a history of left sided breast cancer with local recurrence. She has undergone radiation and also has chronic rib fractures from the radiation. She underwent lumbar fusion L2-L4 in 2009, cervical fusion in 2011, and pelvic pins in 2015. At this point in time Lois reports feeling that she leaks all day. She also wakes up wet at night despite getting up to use the bathroom at night. With examination today Lois is very weak in her levator ani musculature with 2/5 MMT. There is both a rectocele and cystocele present. Lois has poor endurance contractions of her pelvic floor. She is also very weak in her transverse abdominal musculature and hip ER that provide stabilization to her pelvis. Her lumbar spine is fused so there is very little movement in her lumbar spine, she has difficulty with pelvic tilts. Treatment for Lois will include Core stabilization in modified positions, EMG biofeedback will be used to help with neuromuscular awareness, postural education and body mechanics training will be included in her plan of care. Thank you for this referral. Physical Therapy Plan Frequency and Duration Frequency of Treatment 1x/Week Duration of Treatment 8 Plan of Care Start Date 01/26/20 Plan of Care End Date 03/22/20 Therapeutic Interventions Therapeutic Interventions Home Exercise Program, Neuromuscular Re-education, Patient/Caregiver Education, Self-Care/Home Management,Soft Tissue Mobilization, Therapeutic Activities Modalities Biofeedback Next Visit Focus/Plan Next Note Type Treatment Note Next Visit Plan Begin EMG biofeedback for neuro awareness of the pelvic floor and to begin endurance training of the pelvic floor. Plan of Care Dates Plan of Care Start Date 01/26/20 Plan of Care End Date 03/22/20 Electronically Signed by: Capri Kenyon, PT 01/28/20 0814 Please Sign and Return: I have reviewed this Plan of Care and certify that the skilled therapy services above are required to meet the patient?s needs. Physician Signature Date Printed Name and Credentials Clinical Instructor Signature Printed Name and Credentials
--- NOTE | 2020-04-13 10:04 | PT.OTN ---
Current Diagnoses Unspecified urinary incontinence (04/12/20) Physical Therapy Treatment Note PT-OP-A Visit Information Start: 01/26/20 13:00 Freq: Status: Active Protocol: Document 04/12/20 10:41 [facility] (Rec: 04/12/20 11:11 [facility] [id number]) Out-Patient Physical Therapy Visit Information Visit Information Visit Type Progress Note Visit Start Time 10:40 Visit Stop Time 11:20 Total Visit Minutes 40 Visit Number 2 Evaluation Information Evaluation Date 01/26/20 PT-OP-B Current Condition Start: 01/26/20 13:00 Freq: Status: Active Protocol: Document 01/26/20 13:05 [facility] (Rec: 01/26/20 13:08 [facility] [id number]) Current Condition History of Current Condition Onset Date 2019 Current Complaints Urinary incontinence History of Current Condition Jennifer is a 73 year old female with past medical history of left breast invasive ductal carcinoma and lumpectomy axillary node dissection in . She underwent radiation therapy followed by 5 years of tamoxifen. She suffered a ipsilateral new breast cancer in 2016. SHe underwent a mastectomy by Dr. Monzon on November 08 2016. In 2018 Jennifer had a fall landing on her left side and fracturing her ribs. This caused considerable pain. She gets quite a bit of pain from the mastectomy. She has been treated in our clinic previously for bladder leakage and had seen improvments. After her fall she stopped exercising due to pain and her bladder symptoms retunred. At this point she feels like has no control. Especially at night, even if she gets up to go to the bathroom she is soaked through her pad. Wakes up at 5-6 am and normally sleeps 8 hours. Goes to sleep close to 12:30 am then sleeps unitl 8:30 am. past medical history also includes type II diabetes and uses a C pap, she has a history of lumbar fusion and a pin in the SI joint. The daytime symptoms are not as bad. She has regular voiding schedules. Wears a pad # 5 during the day. Uses 3-4 pads per day and changes into a heavy duty pad for the night . Coughing increases urinary leakage. She can experience bowel urgency. Treatment Goals Patient/Caregiver Goals Pts goals are to decrease urinary leakage and improve strength of the pelvic floor Current Functional Impairments (Reported) Functional Limitations- ADL's Leaking is increased with light activity, changing positions such as sit-stand, walking ot the bathroom and witha strong urge to void. PT-OP-C Subjective Start: 01/26/20 13:00 Freq: Status: Active Protocol: Document 04/12/20 10:41 [facility] (Rec: 04/12/20 11:11 [facility] [id number]) OP-PT Subjective Patient Comments Patient Comments pt is returning to her PT visits today since being seen in January. She has other things going on with her arms that has stopped her working on her pelvic floor and she hasn't been working much on her exercises. She does report she started up walking again this week. Walking 1/2 mile with a hill. Jennifer reports she hasn't noticed a change with her pelvic floor. Patient Reported Progress Same PT-OP-I Pelvic Floor Start: 01/26/20 13:00 Freq: Status: Active Protocol: Document 01/26/20 09:09 [facility] (Rec: 01/28/20 09:17 [facility] [id number]) Pelvic Floor Assessment Urine Pelvic Floor Surgery No Urinary Symptoms Urge Sensation,Dribbling After Urination,Incomplete Emptying Leakage Size Large Leakage Cause Cough,Exercise,Lifting,Sneeze, Urge Leaks Per Day constant throughout the day Voiding Frequency 5 times per day Nocturia yes Pads Used In 24 Hours 5 Urine Pad Type Maxi Pad Pelvic Clock Pelvic Clock 12-3 Atrophy Pelvic Clock 3-6 Atrophy Pelvic Clock 6-9 Atrophy Pelvic Clock 9-12 Atrophy Contraction Ability Voluntary Contraction Weak Voluntary Relaxation Weak Manual Muscle Testing Left 2 Manual Muscle Testing Right 2 Manual Muscle Testing Anterior 2 Manual Muscle Testing Posterior 2 Muscle Endurance (Seconds) 4 PT-OP-J Posture/Palpation/Skin Start: 01/26/20 13:00 Freq: Status: Active Protocol: Document 01/26/20 09:09 [facility] (Rec: 01/28/20 09:17 [facility] [id number]) Posture Evaluation Comments Posture Comments pt sits in a forward flexed posture and has tightness under her rib cage which can contribute to pressure downward on her bladder. PT-OP-M Strength Start: 01/26/20 13:00 Freq: Status: Active Protocol: Document 01/26/20 09:09 [facility] (Rec: 01/28/20 09:17 [facility] [id number]) Trunk Strength Trunk Manual Muscle Testing Flexion 3 Fair Core Stabilization Poor core stabilization with poor ability to activate the transverse abdominal muscle Hip Strength Hip Manual Muscle Testing Right Extension (S1) 3 Fair Abduction 2+ Poor+ Adduction 2+ Poor+ Left Extension (S1) 2+ Poor+ Abduction 2+ Poor+ External Rotation 2+ Poor+ Comments difficulty performing a bridge from a supine position PT-OP-Q Treatments Start: 01/26/20 13:00 Freq: Status: Active Protocol: Document 04/12/20 10:41 [facility] (Rec: 04/12/20 11:11 [facility] [id number]) Therapeutic Exercises Supine Exercises bridges with pelvic tilt Supine Exercise Name bridges with pelvic tilt Reps/Minutes x 10 supine roll outs Supine Exercise Name Theraband roll outs in supine Side bilateral supine on the beach pec stretch Reps/Minutes 10x5 pelvic tilt Reps/Minutes 5x Comments reported decrease in back pain deep breathing Supine Exercise Name diaphragmatic breathing Side bilateral Reps/Minutes 10 reps inhale for 4 exhale for 6 counts SKTC Reps/Minutes 2x30 Comments DKTC with mod assist 3 Supine Exercise Name Kciq-ak-Kqptijyj shoulder piriformis stretch Side bilateral Reps/Minutes 30 hold 2 Supine Exercise Name ITB stretch Side bilateral Equipment Used strap Reps/Minutes 30 hold 1 Supine Exercise Name ball squeeze with pelvic floor engagement Reps/Minutes x 10 reps Other Exercises Cat/cow Reps/Minutes 10x Comments for thoracic mobility PT-OP-T Assessment and Plan Start: 01/26/20 13:00 Freq: Status: Active Protocol: Document 04/12/20 10:41 [facility] (Rec: 04/12/20 11:11 [facility] [id number]) Physical Therapy Assessment Goals 5 Impairment Decreased endurance of the pelvic floor musculature Short Term Goal (STG) jennifer is able to sustain a pelvic floor contraction x 10 seconds in supine STG Duration 5 weeks 4 Impairment Light activity and housework causes urinary leakage Custodial Goal (LTG) Jennifer is able to perform ADL's around her house without leakage LTG Duration 8 weeks 3 Impairment Nocturia with nighttime leakage Custodial Goal (LTG) jennifer is able to wake up in the moring with a dry pad LTG Duration 8 weeks 2 Impairment Weakness of the levator ani 2/ 5 MMT Dubbing Machine Operator Goal (LTG) Jennifer has improved recruitment of the levator ani andtest 3/ 5 or better for all regions of the pelvic clock LTG Duration 8 weeks 1 Impairment Urinary incontinence constant throughout the day Custodial Goal (LTG) Jennifer is able to reduce incontinence and is able to limit pad use from 5 per day to 0-1 pads per day LTG Duration 8 weeks Progress Towards Goals Progress Towards Goals Slow Progress due to Noncompliance Progress Comments Jennifer has not been seen since her initial evaluation in January. She returns to PT today ready to begin her strenghening program. Assessment Summary Assessment Jennifer returns to PT today after not being seen since January. She reports with the covid 19 pandemic she has not been motivated to work on her exercise program and has stopped doing a lot of exercises all together. She did return to walking this week. Jennifer did not wish to use EMG biofeedback today for treatment. I as not able to evaluate pelvic floor strength today for her. Today all her exercises were reviewed and she is having difficulty with hip and knee ROM. She is scheduled now for 6 weeks with the goal of Jennifer becomming independent with her home program to help improve her pelvic floor strength. Physical Therapy Plan Frequency and Duration Frequency of Treatment 1x/Week Duration of Treatment 8 Plan of Care Start Date 04/12/20 Plan of Care End Date 06/07/20 Therapeutic Interventions Therapeutic Interventions Home Exercise Program, Neuromuscular Re-education, Patient/Caregiver Education, Self-Care/Home Management,Soft Tissue Mobilization, Therapeutic Activities Modalities Biofeedback
--- NOTE | 2020-04-13 10:04 | PT.OPPOC ---
Physical, Occupational & Speech Therapy At [facility] Current Diagnoses Unspecified urinary incontinence (04/12/20) Visit Care Team Role Provider Type Sylvie Roy DO Attending Provider Physician Primary Care Provider Referring Provider Specialty: Family Practice Address: [address] [place] [address], [id number] Email: [email or web address] Plan Of Care PT-OP-T Assessment and Plan Start: 01/26/20 13:00 Freq: Status: Active Protocol: Document 04/12/20 10:41 [facility] (Rec: 04/12/20 11:11 [facility] [id number]) Physical Therapy Assessment Goals 5 Impairment Decreased endurance of the pelvic floor musculature Short Term Goal (STG) Jennifer is able to sustain a pelvic floor contraction x 10 seconds in supine STG Duration 5 weeks 4 Impairment Light activity and housework causes urinary leakage Sailor Goal (LTG) Jennifer is able to perform ADL's around her house without leakage LTG Duration 8 weeks 3 Impairment Nocturia with nighttime leakage Sailor Goal (LTG) jennifer is able to wake up in the moring with a dry pad LTG Duration 8 weeks 2 Impairment Weakness of the levator ani 2/ 5 MMT Nursing Home Goal (LTG) Jennifer has improved recruitment of the levator ani andtest 3/ 5 or better for all regions of the pelvic clock LTG Duration 8 weeks 1 Impairment Urinary incontinence constant throughout the day Nursing Home Goal (LTG) Jennifer is able to reduce incontinence and is able to limit pad use from 5 per day to 0-1 pads per day LTG Duration 8 weeks Progress Towards Goals Progress Towards Goals Slow Progress due to Noncompliance Progress Comments Jennifer has not been seen since her initial evaluation in January. She returns to PT today ready to begin her strenghening program. Assessment Summary Assessment Jennifer returns to PT today after not being seen since January. She reports with the covid 19 pandemic she has not been motivated to work on her exercise program and has stopped doing a lot of exercises all together. She did return to walking this week. Jennifer did not wish to use EMG biofeedback today for treatment. I as not able to evaluate pelvic floor strength today for her. Today all her exercises were reviewed and she is having difficulty with hip and knee ROM. She is scheduled now for 6 weeks with the goal of Jennifer becoming independent with her home program to help improve her pelvic floor strength. Physical Therapy Plan Frequency and Duration Frequency of Treatment 1x/Week Duration of Treatment 8 Plan of Care Start Date 04/12/20 Plan of Care End Date 06/07/20 Therapeutic Interventions Therapeutic Interventions Home Exercise Program, Neuromuscular Re-education, Patient/Caregiver Education, Self-Care/Home Management,Soft Tissue Mobilization, Therapeutic Activities Modalities Biofeedback Plan of Care Dates Plan of Care Start Date 04/12/20 Plan of Care End Date 06/07/20 Electronically Signed by: Capri Kenyon, PT 04/13/20 1008 Please Sign and Return: I have reviewed this Plan of Care and certify that the skilled therapy services above are required to meet the patient?s needs. Physician Signature Date Printed Name and Credentials Clinical Instructor Signature Printed Name and Credentials
--- NOTE | 2020-04-21 10:33 | PT.OTN ---
Current Diagnoses Unspecified urinary incontinence (04/21/20) Physical Therapy Treatment Note PT-OP-A Visit Information Start: 01/26/20 13:00 Freq: Status: Active Protocol: Document 04/21/20 09:45 [facility] (Rec: 04/21/20 09:42 [facility] [id number]) Out-Patient Physical Therapy Visit Information Visit Information Visit Type Treatment Note Visit Start Time 09:45 Visit Stop Time 10:30 Total Visit Minutes 45 Visit Number 3 PT-OP-B Current Condition Start: 01/26/20 13:00 Freq: Status: Active Protocol: Document 01/26/20 13:05 [facility] (Rec: 01/26/20 13:08 [facility] [id number]) Current Condition History of Current Condition Onset Date 2019 Current Complaints Urinary incontinence History of Current Condition Lois is a 73 year old female with past medical history of left breast invasive ductal carcinoma and lumpectomy axillary node dissection in . She underwent radiation therapy followed by 5 years of tamoxifen. She suffered a ipsilateral new breast cancer in 2016. SHe underwent a mastectomy by Dr. Monzon on November 08 2016. In 2018 Lois had a fall landing on her left side and fracturing her ribs. This caused considerable pain. She gets quite a bit of pain from the mastectomy. She has been treated in our clinic previously for bladder leakage and had seen improvments. After her fall she stopped exercising due to pain and her bladder symptoms retunred. At this point she feels like has no control. Especially at night, even if she gets up to go to the bathroom she is soaked through her pad. Wakes up at 5-6 am and normally sleeps 8 hours. Goes to sleep close to 12:30 am then sleeps unitl 8:30 am. past medical history also includes type II diabetes and uses a C pap, she has a history of lumbar fusion and a pin in the SI joint. The daytime symptoms are not as bad. She has regular voiding schedules. Wears a pad # 5 during the day. Uses 3-4 pads per day and changes into a heavy duty pad for the night . Coughing increases urinary leakage. She can experience bowel urgency. Treatment Goals Patient/Caregiver Goals Pts goals are to decrease urinary leakage and improve strength of the pelvic floor Current Functional Impairments (Reported) Functional Limitations- ADL's Leaking is increased with light activity, changing positions such as sit-stand, walking ot the bathroom and witha strong urge to void. PT-OP-C Subjective Start: 01/26/20 13:00 Freq: Status: Active Protocol: Document 04/21/20 09:45 [facility] (Rec: 04/21/20 10:25 [facility] [id number]) OP-PT Subjective Patient Comments Patient Comments Did better with her exercises this last week. Would like to review the exercises especially the ones with the ball. She purchased a ball this past week. PT-OP-I Pelvic Floor Start: 01/26/20 13:00 Freq: Status: Active Protocol: Document 01/26/20 09:09 [facility] (Rec: 01/28/20 09:17 [facility] [id number]) Pelvic Floor Assessment Urine Pelvic Floor Surgery No Urinary Symptoms Urge Sensation,Dribbling After Urination,Incomplete Emptying Leakage Size Large Leakage Cause Cough,Exercise,Lifting,Sneeze, Urge Leaks Per Day constant throughout the day Voiding Frequency 5 times per day Nocturia yes Pads Used In 24 Hours 5 Urine Pad Type Maxi Pad Pelvic Clock Pelvic Clock 12-3 Atrophy Pelvic Clock 3-6 Atrophy Pelvic Clock 6-9 Atrophy Pelvic Clock 9-12 Atrophy Contraction Ability Voluntary Contraction Weak Voluntary Relaxation Weak Manual Muscle Testing Left 2 Manual Muscle Testing Right 2 Manual Muscle Testing Anterior 2 Manual Muscle Testing Posterior 2 Muscle Endurance (Seconds) 4 PT-OP-J Posture/Palpation/Skin Start: 01/26/20 13:00 Freq: Status: Active Protocol: Document 01/26/20 09:09 [facility] (Rec: 01/28/20 09:17 [facility] [id number]) Posture Evaluation Comments Posture Comments pt sits in a forward flexed posture and has tightness under her rib cage which can contribute to pressure downward on her bladder. PT-OP-M Strength Start: 01/26/20 13:00 Freq: Status: Active Protocol: Document 01/26/20 09:09 [facility] (Rec: 01/28/20 09:17 [facility] [id number]) Trunk Strength Trunk Manual Muscle Testing Flexion 3 Fair Core Stabilization Poor core stabilization with poor ability to activate the transverse abdominal muscle Hip Strength Hip Manual Muscle Testing Right Extension (S1) 3 Fair Abduction 2+ Poor+ Adduction 2+ Poor+ Left Extension (S1) 2+ Poor+ Abduction 2+ Poor+ External Rotation 2+ Poor+ Comments difficulty performing a bridge from a supine position PT-OP-Q Treatments Start: 01/26/20 13:00 Freq: Status: Active Protocol: Document 04/21/20 09:45 [facility] (Rec: 04/21/20 10:25 [facility] [id number]) Therapeutic Exercises Supine Exercises bridges with pelvic tilt Supine Exercise Name bridges with pelvic tilt Reps/Minutes x 10 supine roll outs Supine Exercise Name Theraband roll outs in supine Side bilateral Reps/Minutes 3 x10 reps pelvic tilt Reps/Minutes 5x Comments reported decrease in back pain deep breathing Supine Exercise Name diaphragmatic breathing Side bilateral Reps/Minutes 10 reps inhale for 4 exhale for 6 counts SKTC Reps/Minutes 2x30 Comments DKTC with mod assist Other Exercises quadruped rock backs Other Exercise Name quadruped rock backs Reps/Minutes x 10 Cat/cow Reps/Minutes 10x Comments for thoracic mobility PT-OP-T Assessment and Plan Start: 01/26/20 13:00 Freq: Status: Active Protocol: Document 04/21/20 10:32 [facility] (Rec: 04/21/20 10:33 [facility] [id number]) Physical Therapy Assessment Assessment Summary Assessment Lois worked on her exercise more this past week. She does have a pin in her Si joint as well as lumbar fusion so pelvic tilts and bridges are very limited. We worked on diaphragmaitc breathing today and pelvic floor activation. Will try EMG biofeedback next visit Physical Therapy Plan Frequency and Duration Frequency of Treatment 1x/Week Duration of Treatment 8 Plan of Care Start Date 04/12/20 Plan of Care End Date 06/07/20 Therapeutic Interventions Therapeutic Interventions Home Exercise Program, Neuromuscular Re-education, Patient/Caregiver Education, Self-Care/Home Management,Soft Tissue Mobilization, Therapeutic Activities Modalities Biofeedback Next Visit Focus/Plan Next Note Type Treatment Note Next Visit Plan Begin EMG biofeedback next visit as pt wasnot ready this visit.
--- NOTE | 2020-04-26 10:33 | PT.OTN ---
Current Diagnoses Unspecified urinary incontinence (04/26/20) Physical Therapy Treatment Note PT-OP-A Visit Information Start: 01/26/20 13:00 Freq: Status: Active Protocol: Document 04/26/20 09:49 [facility] (Rec: 04/26/20 10:10 [facility] [id number]) Out-Patient Physical Therapy Visit Information Visit Information Visit Type Treatment Note Visit Start Time 09:45 Visit Stop Time 10:30 Total Visit Minutes 45 Visit Number 4 PT-OP-B Current Condition Start: 01/26/20 13:00 Freq: Status: Active Protocol: Document 01/26/20 13:05 [facility] (Rec: 01/26/20 13:08 [facility] [id number]) Current Condition History of Current Condition Onset Date 2019 Current Complaints Urinary incontinence History of Current Condition Lois is a 73 year old female with past medical history of left breast invasive ductal carcinoma and lumpectomy axillary node dissection in . She underwent radiation therapy followed by 5 years of tamoxifen. She suffered a ipsilateral new breast cancer in 2016. SHe underwent a mastectomy by Dr. Monzon on November 08 2016. In 2018 Lois had a fall landing on her left side and fracturing her ribs. This caused considerable pain. She gets quite a bit of pain from the mastectomy. She has been treated in our clinic previously for bladder leakage and had seen improvments. After her fall she stopped exercising due to pain and her bladder symptoms retunred. At this point she feels like has no control. Especially at night, even if she gets up to go to the bathroom she is soaked through her pad. Wakes up at 5-6 am and normally sleeps 8 hours. Goes to sleep close to 12:30 am then sleeps unitl 8:30 am. past medical history also includes type II diabetes and uses a C pap, she has a history of lumbar fusion and a pin in the SI joint. The daytime symptoms are not as bad. She has regular voiding schedules. Wears a pad # 5 during the day. Uses 3-4 pads per day and changes into a heavy duty pad for the night . Coughing increases urinary leakage. She can experience bowel urgency. Treatment Goals Patient/Caregiver Goals Pts goals are to decrease urinary leakage and improve strength of the pelvic floor Current Functional Impairments (Reported) Functional Limitations- ADL's Leaking is increased with light activity, changing positions such as sit-stand, walking ot the bathroom and witha strong urge to void. PT-OP-C Subjective Start: 01/26/20 13:00 Freq: Status: Active Protocol: Document 04/26/20 09:49 [facility] (Rec: 04/26/20 10:10 [facility] [id number]) OP-PT Subjective Patient Comments Patient Comments pt reports she feels drained today. She needs copies of her exercises. She is not seeming to have as much of a problem with wetting the pads that she is wearing. She PT-OP-I Pelvic Floor Start: 01/26/20 13:00 Freq: Status: Active Protocol: Document 01/26/20 09:09 [facility] (Rec: 01/28/20 09:17 [facility] [id number]) Pelvic Floor Assessment Urine Pelvic Floor Surgery No Urinary Symptoms Urge Sensation,Dribbling After Urination,Incomplete Emptying Leakage Size Large Leakage Cause Cough,Exercise,Lifting,Sneeze, Urge Leaks Per Day constant throughout the day Voiding Frequency 5 times per day Nocturia yes Pads Used In 24 Hours 5 Urine Pad Type Maxi Pad Pelvic Clock Pelvic Clock 12-3 Atrophy Pelvic Clock 3-6 Atrophy Pelvic Clock 6-9 Atrophy Pelvic Clock 9-12 Atrophy Contraction Ability Voluntary Contraction Weak Voluntary Relaxation Weak Manual Muscle Testing Left 2 Manual Muscle Testing Right 2 Manual Muscle Testing Anterior 2 Manual Muscle Testing Posterior 2 Muscle Endurance (Seconds) 4 PT-OP-J Posture/Palpation/Skin Start: 01/26/20 13:00 Freq: Status: Active Protocol: Document 01/26/20 09:09 [facility] (Rec: 01/28/20 09:17 [facility] [id number]) Posture Evaluation Comments Posture Comments pt sits in a forward flexed posture and has tightness under her rib cage which can contribute to pressure downward on her bladder. PT-OP-M Strength Start: 01/26/20 13:00 Freq: Status: Active Protocol: Document 01/26/20 09:09 [facility] (Rec: 01/28/20 09:17 [facility] [id number]) Trunk Strength Trunk Manual Muscle Testing Flexion 3 Fair Core Stabilization Poor core stabilization with poor ability to activate the transverse abdominal muscle Hip Strength Hip Manual Muscle Testing Right Extension (S1) 3 Fair Abduction 2+ Poor+ Adduction 2+ Poor+ Left Extension (S1) 2+ Poor+ Abduction 2+ Poor+ External Rotation 2+ Poor+ Comments difficulty performing a bridge from a supine position PT-OP-Q Treatments Start: 01/26/20 13:00 Freq: Status: Active Protocol: Document 04/26/20 09:49 [facility] (Rec: 04/26/20 10:10 [facility] [id number]) Therapeutic Exercises Supine Exercises piriformis stretch Supine Exercise Name piriformis stretch Reps/Minutes x 2 bridges with pelvic tilt Supine Exercise Name bridges with pelvic tilt Reps/Minutes x 10 supine roll outs Supine Exercise Name Theraband roll outs in supine Side bilateral Reps/Minutes 3 x10 reps supine on the beach pec stretch Reps/Minutes 10x5 pelvic tilt Reps/Minutes 5x Comments reported decrease in back pain deep breathing Supine Exercise Name diaphragmatic breathing Side bilateral Reps/Minutes 10 reps inhale for 4 exhale for 6 counts SKTC Reps/Minutes 2x30 Comments DKTC with mod assist 3 Supine Exercise Name Ixvv-pa-Ubhafkco shoulder piriformis stretch Side bilateral Reps/Minutes 30 hold 2 Supine Exercise Name ITB stretch Side bilateral Equipment Used strap Reps/Minutes 30 hold 1 Supine Exercise Name ball squeeze with pelvic floor engagement Reps/Minutes x 10 reps PT-OP-T Assessment and Plan Start: 01/26/20 13:00 Freq: Status: Active Protocol: Document 04/26/20 09:49 [facility] (Rec: 04/26/20 10:10 [facility] [id number]) Physical Therapy Assessment Assessment Summary Assessment pt was pretty fatigued today but she was able to get through all her exercises. Her exercise handouts were recopied and given to her today Physical Therapy Plan Frequency and Duration Frequency of Treatment 1x/Week Duration of Treatment 8 Plan of Care Start Date 04/12/20 Plan of Care End Date 06/07/20 Therapeutic Interventions Therapeutic Interventions Home Exercise Program, Neuromuscular Re-education, Patient/Caregiver Education, Self-Care/Home Management,Soft Tissue Mobilization, Therapeutic Activities Modalities Biofeedback Next Visit Focus/Plan Next Note Type Treatment Note Next Visit Plan pt does not have electrode with her so will start this next visit
--- NOTE | 2020-05-10 15:52 | PT.OTN ---
Current Diagnoses Unspecified urinary incontinence (05/10/20) Physical Therapy Treatment Note PT-OP-A Visit Information Start: 01/26/20 13:00 Freq: Status: Active Protocol: Document 05/10/20 09:50 [facility] (Rec: 05/10/20 10:14 [facility] [id number]) Out-Patient Physical Therapy Visit Information Visit Information Visit Type Treatment Note Visit Start Time 09:50 Visit Stop Time 10:30 Total Visit Minutes 40 Visit Number 5 PT-OP-B Current Condition Start: 01/26/20 13:00 Freq: Status: Active Protocol: Document 01/26/20 13:05 [facility] (Rec: 01/26/20 13:08 [facility] [id number]) Current Condition History of Current Condition Onset Date 2019 Current Complaints Urinary incontinence History of Current Condition Lois is a 73 year old female with past medical history of left breast invasive ductal carcinoma and lumpectomy axillary node dissection in . She underwent radiation therapy followed by 5 years of tamoxifen. She suffered a ipsilateral new breast cancer in 2016. SHe underwent a mastectomy by Dr. Monzon on November 08 2016. In 2018 Lois had a fall landing on her left side and fracturing her ribs. This caused considerable pain. She gets quite a bit of pain from the mastectomy. She has been treated in our clinic previously for bladder leakage and had seen improvments. After her fall she stopped exercising due to pain and her bladder symptoms retunred. At this point she feels like has no control. Especially at night, even if she gets up to go to the bathroom she is soaked through her pad. Wakes up at 5-6 am and normally sleeps 8 hours. Goes to sleep close to 12:30 am then sleeps unitl 8:30 am. past medical history also includes type II diabetes and uses a C pap, she has a history of lumbar fusion and a pin in the SI joint. The daytime symptoms are not as bad. She has regular voiding schedules. Wears a pad # 5 during the day. Uses 3-4 pads per day and changes into a heavy duty pad for the night . Coughing increases urinary leakage. She can experience bowel urgency. Treatment Goals Patient/Caregiver Goals Pts goals are to decrease urinary leakage and improve strength of the pelvic floor Current Functional Impairments (Reported) Functional Limitations- ADL's Leaking is increased with light activity, changing positions such as sit-stand, walking ot the bathroom and witha strong urge to void. PT-OP-C Subjective Start: 01/26/20 13:00 Freq: Status: Active Protocol: Document 05/10/20 09:50 [facility] (Rec: 05/10/20 10:14 [facility] [id number]) OP-PT Subjective Patient Comments Patient Comments She is tired as she has been helping a friend who ended up at [facility]. SHe notes her symptoms are getting a little better. She is getting a little more control with her urges. She is not getting the urges as often now. PT-OP-I Pelvic Floor Start: 01/26/20 13:00 Freq: Status: Active Protocol: Document 01/26/20 09:09 [facility] (Rec: 01/28/20 09:17 [facility] [id number]) Pelvic Floor Assessment Urine Pelvic Floor Surgery No Urinary Symptoms Urge Sensation,Dribbling After Urination,Incomplete Emptying Leakage Size Large Leakage Cause Cough,Exercise,Lifting,Sneeze, Urge Leaks Per Day constant throughout the day Voiding Frequency 5 times per day Nocturia yes Pads Used In 24 Hours 5 Urine Pad Type Maxi Pad Pelvic Clock Pelvic Clock 12-3 Atrophy Pelvic Clock 3-6 Atrophy Pelvic Clock 6-9 Atrophy Pelvic Clock 9-12 Atrophy Contraction Ability Voluntary Contraction Weak Voluntary Relaxation Weak Manual Muscle Testing Left 2 Manual Muscle Testing Right 2 Manual Muscle Testing Anterior 2 Manual Muscle Testing Posterior 2 Muscle Endurance (Seconds) 4 PT-OP-J Posture/Palpation/Skin Start: 01/26/20 13:00 Freq: Status: Active Protocol: Document 01/26/20 09:09 [facility] (Rec: 01/28/20 09:17 [facility] [id number]) Posture Evaluation Comments Posture Comments pt sits in a forward flexed posture and has tightness under her rib cage which can contribute to pressure downward on her bladder. PT-OP-M Strength Start: 01/26/20 13:00 Freq: Status: Active Protocol: Document 01/26/20 09:09 [facility] (Rec: 01/28/20 09:17 [facility] [id number]) Trunk Strength Trunk Manual Muscle Testing Flexion 3 Fair Core Stabilization Poor core stabilization with poor ability to activate the transverse abdominal muscle Hip Strength Hip Manual Muscle Testing Right Extension (S1) 3 Fair Abduction 2+ Poor+ Adduction 2+ Poor+ Left Extension (S1) 2+ Poor+ Abduction 2+ Poor+ External Rotation 2+ Poor+ Comments difficulty performing a bridge from a supine position PT-OP-Q Treatments Start: 01/26/20 13:00 Freq: Status: Active Protocol: Document 05/10/20 09:50 [facility] (Rec: 05/10/20 10:14 [facility] [id number]) Therapeutic Exercises Supine Exercises piriformis stretch Supine Exercise Name piriformis stretch Reps/Minutes x 2 bridges with pelvic tilt Supine Exercise Name bridges with pelvic tilt Reps/Minutes x 10 supine roll outs Supine Exercise Name Theraband roll outs in supine Side bilateral Reps/Minutes 3 x10 reps pelvic tilt Reps/Minutes 5x Comments reported decrease in back pain deep breathing Supine Exercise Name diaphragmatic breathing Side bilateral Reps/Minutes 10 reps inhale for 4 exhale for 6 counts SKTC Reps/Minutes 2x30 Comments DKTC with mod assist 3 Supine Exercise Name Hwtv-sb-Yofetrcx shoulder piriformis stretch Side bilateral Reps/Minutes 30 hold 2 Supine Exercise Name ITB stretch Side bilateral Equipment Used strap Reps/Minutes 30 hold 1 Supine Exercise Name ball squeeze with pelvic floor engagement Reps/Minutes x 10 reps PT-OP-T Assessment and Plan Start: 01/26/20 13:00 Freq: Status: Active Protocol: Document 05/10/20 15:49 [facility] (Rec: 05/10/20 15:52 [facility] [id number]) Physical Therapy Assessment Assessment Summary Assessment Lois is reporting her symptoms of urgency are decreasing. She is still experiencing leaking first thing in the am and notes she voids large amounts in the night and am Physical Therapy Plan Frequency and Duration Frequency of Treatment 1x/Week Duration of Treatment 8 Plan of Care Start Date 04/12/20 Plan of Care End Date 06/07/20 Therapeutic Interventions Therapeutic Interventions Home Exercise Program, Neuromuscular Re-education, Patient/Caregiver Education, Self-Care/Home Management,Soft Tissue Mobilization, Therapeutic Activities Modalities Biofeedback
--- NOTE | 2020-05-18 14:20 | PT.OTN ---
Current Diagnoses Unspecified urinary incontinence (05/18/20) Physical Therapy Treatment Note PT-OP-A Visit Information Start: 01/26/20 13:00 Freq: Status: Active Protocol: Document 05/18/20 12:22 [facility] (Rec: 05/18/20 12:23 [facility] [id number]) Out-Patient Physical Therapy Visit Information Visit Information Visit Type Treatment Note Visit Start Time 12:10 Visit Stop Time 12:50 Total Visit Minutes 40 Visit Number 6 PT-OP-B Current Condition Start: 01/26/20 13:00 Freq: Status: Active Protocol: Document 01/26/20 13:05 [facility] (Rec: 01/26/20 13:08 [facility] [id number]) Current Condition History of Current Condition Onset Date 2019 Current Complaints Urinary incontinence History of Current Condition Jennifer is a 73 year old female with past medical history of left breast invasive ductal carcinoma and lumpectomy axillary node dissection in . She underwent radiation therapy followed by 5 years of tamoxifen. She suffered a ipsilateral new breast cancer in 2016. SHe underwent a mastectomy by Dr. Monzon on November 08 2016. In 2018 Jennifer had a fall landing on her left side and fracturing her ribs. This caused considerable pain. She gets quite a bit of pain from the mastectomy. She has been treated in our clinic previously for bladder leakage and had seen improvments. After her fall she stopped exercising due to pain and her bladder symptoms retunred. At this point she feels like has no control. Especially at night, even if she gets up to go to the bathroom she is soaked through her pad. Wakes up at 5-6 am and normally sleeps 8 hours. Goes to sleep close to 12:30 am then sleeps unitl 8:30 am. past medical history also includes type II diabetes and uses a C pap, she has a history of lumbar fusion and a pin in the SI joint. The daytime symptoms are not as bad. She has regular voiding schedules. Wears a pad # 5 during the day. Uses 3-4 pads per day and changes into a heavy duty pad for the night . Coughing increases urinary leakage. She can experience bowel urgency. Treatment Goals Patient/Caregiver Goals Pts goals are to decrease urinary leakage and improve strength of the pelvic floor Current Functional Impairments (Reported) Functional Limitations- ADL's Leaking is increased with light activity, changing positions such as sit-stand, walking ot the bathroom and witha strong urge to void. PT-OP-C Subjective Start: 01/26/20 13:00 Freq: Status: Active Protocol: Document 05/18/20 12:24 [facility] (Rec: 05/18/20 12:24 [facility] [id number]) OP-PT Subjective Patient Comments Patient Comments jennifer reports she had a bad episode with vertigo this past week. She was in the ER one time as well. She is doing better now but wasn't able to do her exercises last week. SHe has noticed less urgency though and no leaking. She also has not been wet in the am Patient Reported Progress Improving PT-OP-I Pelvic Floor Start: 01/26/20 13:00 Freq: Status: Active Protocol: Document 01/26/20 09:09 [facility] (Rec: 01/28/20 09:17 [facility] [id number]) Pelvic Floor Assessment Urine Pelvic Floor Surgery No Urinary Symptoms Urge Sensation,Dribbling After Urination,Incomplete Emptying Leakage Size Large Leakage Cause Cough,Exercise,Lifting,Sneeze, Urge Leaks Per Day constant throughout the day Voiding Frequency 5 times per day Nocturia yes Pads Used In 24 Hours 5 Urine Pad Type Maxi Pad Pelvic Clock Pelvic Clock 12-3 Atrophy Pelvic Clock 3-6 Atrophy Pelvic Clock 6-9 Atrophy Pelvic Clock 9-12 Atrophy Contraction Ability Voluntary Contraction Weak Voluntary Relaxation Weak Manual Muscle Testing Left 2 Manual Muscle Testing Right 2 Manual Muscle Testing Anterior 2 Manual Muscle Testing Posterior 2 Muscle Endurance (Seconds) 4 PT-OP-J Posture/Palpation/Skin Start: 01/26/20 13:00 Freq: Status: Active Protocol: Document 01/26/20 09:09 [facility] (Rec: 01/28/20 09:17 [facility] [id number]) Posture Evaluation Comments Posture Comments pt sits in a forward flexed posture and has tightness under her rib cage which can contribute to pressure downward on her bladder. PT-OP-M Strength Start: 01/26/20 13:00 Freq: Status: Active Protocol: Document 01/26/20 09:09 [facility] (Rec: 01/28/20 09:17 [facility] [id number]) Trunk Strength Trunk Manual Muscle Testing Flexion 3 Fair Core Stabilization Poor core stabilization with poor ability to activate the transverse abdominal muscle Hip Strength Hip Manual Muscle Testing Right Extension (S1) 3 Fair Abduction 2+ Poor+ Adduction 2+ Poor+ Left Extension (S1) 2+ Poor+ Abduction 2+ Poor+ External Rotation 2+ Poor+ Comments difficulty performing a bridge from a supine position PT-OP-Q Treatments Start: 01/26/20 13:00 Freq: Status: Active Protocol: Document 05/18/20 12:25 [facility] (Rec: 05/18/20 12:41 [facility] [id number]) Therapeutic Exercises Supine Exercises pelvic floor long holds Supine Exercise Name pelvic floor long holds Reps/Minutes 10 reps x 10 second hold pelvic floor quick contractions Supine Exercise Name pelvic floor quick contractions piriformis stretch Supine Exercise Name piriformis stretch Reps/Minutes x 2 bridges with pelvic tilt Supine Exercise Name bridges with pelvic tilt Reps/Minutes x 10 supine roll outs Supine Exercise Name Theraband roll outs in supine Side bilateral Reps/Minutes 3 x10 reps pelvic tilt Reps/Minutes 5x Comments reported decrease in back pain SKTC Reps/Minutes 2x30 Comments DKTC with mod assist 3 Supine Exercise Name [id number]-[id number] shoulder piriformis stretch Side bilateral Reps/Minutes 30 hold 1 Supine Exercise Name ball squeeze with pelvic floor engagement Reps/Minutes x 10 reps PT-OP-T Assessment and Plan Start: 01/26/20 13:00 Freq: Status: Active Protocol: Document 05/18/20 14:09 [facility] (Rec: 05/18/20 14:16 [facility] [id number]) Physical Therapy Assessment Assessment Summary Assessment Jennifer did quite well today for the past week she had. She also saw a chiropractor this past week and was moving better today. Jennifer's visit was shortened today as her left shoulder was hurting her and she was not able to go through all the exercises Physical Therapy Plan Frequency and Duration Frequency of Treatment 1x/Week Duration of Treatment 8 Plan of Care Start Date 04/12/20 Plan of Care End Date 06/07/20 Therapeutic Interventions Therapeutic Interventions Home Exercise Program, Neuromuscular Re-education, Patient/Caregiver Education, Self-Care/Home Management,Soft Tissue Mobilization, Therapeutic Activities Modalities Biofeedback Next Visit Focus/Plan Next Note Type Treatment Note Next Visit Plan continue working on improved pelvic floor strength
--- NOTE | 2020-05-24 12:23 | PT.OTN ---
Current Diagnoses Unspecified urinary incontinence (05/24/20) Physical Therapy Treatment Note PT-OP-A Visit Information Start: 01/26/20 13:00 Freq: Status: Active Protocol: Document 05/24/20 09:51 [facility] (Rec: 05/24/20 10:29 [facility] [id number]) Out-Patient Physical Therapy Visit Information Visit Information Visit Type Treatment Note Visit Start Time 09:50 Visit Stop Time 10:30 Total Visit Minutes 40 Visit Number 7 PT-OP-B Current Condition Start: 01/26/20 13:00 Freq: Status: Active Protocol: Document 01/26/20 13:05 [facility] (Rec: 01/26/20 13:08 [facility] [id number]) Current Condition History of Current Condition Onset Date 2019 Current Complaints Urinary incontinence History of Current Condition Lois is a 73 year old female with past medical history of left breast invasive ductal carcinoma and lumpectomy axillary node dissection in . She underwent radiation therapy followed by 5 years of tamoxifen. She suffered a ipsilateral new breast cancer in 2016. SHe underwent a mastectomy by Dr. Monzon on November 08 2016. In 2018 Lois had a fall landing on her left side and fracturing her ribs. This caused considerable pain. She gets quite a bit of pain from the mastectomy. She has been treated in our clinic previously for bladder leakage and had seen improvments. After her fall she stopped exercising due to pain and her bladder symptoms retunred. At this point she feels like has no control. Especially at night, even if she gets up to go to the bathroom she is soaked through her pad. Wakes up at 5-6 am and normally sleeps 8 hours. Goes to sleep close to 12:30 am then sleeps unitl 8:30 am. past medical history also includes type II diabetes and uses a C pap, she has a history of lumbar fusion and a pin in the SI joint. The daytime symptoms are not as bad. She has regular voiding schedules. Wears a pad # 5 during the day. Uses 3-4 pads per day and changes into a heavy duty pad for the night . Coughing increases urinary leakage. She can experience bowel urgency. Treatment Goals Patient/Caregiver Goals Pts goals are to decrease urinary leakage and improve strength of the pelvic floor Current Functional Impairments (Reported) Functional Limitations- ADL's Leaking is increased with light activity, changing positions such as sit-stand, walking ot the bathroom and witha strong urge to void. PT-OP-C Subjective Start: 01/26/20 13:00 Freq: Status: Active Protocol: Document 05/24/20 09:51 [facility] (Rec: 05/24/20 10:29 [facility] [id number]) OP-PT Subjective Patient Comments Patient Comments SHE NOTES HER SYMPTOMS HAVE BEEN REALLY GOOD. She notes overall her bladder symptoms have been lessened. She has not been wet when she wakes up PT-OP-I Pelvic Floor Start: 01/26/20 13:00 Freq: Status: Active Protocol: Document 01/26/20 09:09 [facility] (Rec: 01/28/20 09:17 [facility] [id number]) Pelvic Floor Assessment Urine Pelvic Floor Surgery No Urinary Symptoms Urge Sensation,Dribbling After Urination,Incomplete Emptying Leakage Size Large Leakage Cause Cough,Exercise,Lifting,Sneeze, Urge Leaks Per Day constant throughout the day Voiding Frequency 5 times per day Nocturia yes Pads Used In 24 Hours 5 Urine Pad Type Maxi Pad Pelvic Clock Pelvic Clock 12-3 Atrophy Pelvic Clock 3-6 Atrophy Pelvic Clock 6-9 Atrophy Pelvic Clock 9-12 Atrophy Contraction Ability Voluntary Contraction Weak Voluntary Relaxation Weak Manual Muscle Testing Left 2 Manual Muscle Testing Right 2 Manual Muscle Testing Anterior 2 Manual Muscle Testing Posterior 2 Muscle Endurance (Seconds) 4 PT-OP-J Posture/Palpation/Skin Start: 01/26/20 13:00 Freq: Status: Active Protocol: Document 01/26/20 09:09 [facility] (Rec: 01/28/20 09:17 [facility] [id number]) Posture Evaluation Comments Posture Comments pt sits in a forward flexed posture and has tightness under her rib cage which can contribute to pressure downward on her bladder. PT-OP-M Strength Start: 01/26/20 13:00 Freq: Status: Active Protocol: Document 01/26/20 09:09 [facility] (Rec: 01/28/20 09:17 [facility] [id number]) Trunk Strength Trunk Manual Muscle Testing Flexion 3 Fair Core Stabilization Poor core stabilization with poor ability to activate the transverse abdominal muscle Hip Strength Hip Manual Muscle Testing Right Extension (S1) 3 Fair Abduction 2+ Poor+ Adduction 2+ Poor+ Left Extension (S1) 2+ Poor+ Abduction 2+ Poor+ External Rotation 2+ Poor+ Comments difficulty performing a bridge from a supine position PT-OP-Q Treatments Start: 01/26/20 13:00 Freq: Status: Active Protocol: Document 05/24/20 09:51 [facility] (Rec: 05/24/20 10:29 [facility] [id number]) Therapeutic Exercises Supine Exercises pelvic floor long holds Supine Exercise Name pelvic floor long holds Reps/Minutes 10 reps x 10 second hold piriformis stretch Supine Exercise Name piriformis stretch Reps/Minutes x 2 bridges with pelvic tilt Supine Exercise Name bridges with pelvic tilt Reps/Minutes x 10 supine roll outs Supine Exercise Name Theraband roll outs in supine Side bilateral Reps/Minutes 3 x10 reps pelvic tilt Reps/Minutes 10x Comments reported decrease in back pain deep breathing Supine Exercise Name diaphragmatic breathing Side bilateral Reps/Minutes 10 reps inhale for 4 exhale for 6 counts SKTC Reps/Minutes 2x30 Comments DKTC with mod assist 3 Supine Exercise Name Ykcw-mo-Uhxuazmm shoulder piriformis stretch Side bilateral Reps/Minutes 30 hold 2 Supine Exercise Name ITB stretch Side bilateral Equipment Used strap Reps/Minutes 30 hold 1 Supine Exercise Name ball squeeze with pelvic floor engagement Reps/Minutes x 10 reps PT-OP-T Assessment and Plan Start: 01/26/20 13:00 Freq: Status: Active Protocol: Document 05/24/20 09:51 [facility] (Rec: 05/24/20 10:29 [facility] [id number]) Physical Therapy Assessment Assessment Summary Assessment Lois continues to show progress and today was able to lift higher with her gluteals for bridges. Physical Therapy Plan Frequency and Duration Frequency of Treatment 1x/Week Duration of Treatment 8 Plan of Care Start Date 04/12/20 Plan of Care End Date 06/07/20 Therapeutic Interventions Therapeutic Interventions Home Exercise Program, Neuromuscular Re-education, Patient/Caregiver Education, Self-Care/Home Management,Soft Tissue Mobilization, Therapeutic Activities Modalities Biofeedback Next Visit Focus/Plan Next Note Type Treatment Note Next Visit Plan continue working on improved pelvic floor strength
--- NOTE | 2020-07-05 14:19 | PT.OPDS ---
Current Diagnoses Unspecified urinary incontinence (05/24/20) Visit Care Team Role Provider Type Sylvie Roy DO Attending Provider Physician Primary Care Provider Referring Provider Specialty: [facility] Address: [address] [place] [address], [facility], [place], [address] Email: [email or web address] Visit Number Visit Number 7 Discharge Summary PT-OP-B Current Condition Start: 01/26/20 13:00 Freq: Status: Active Protocol: Document 01/26/20 13:05 [facility] (Rec: 01/26/20 13:08 [facility] [id number]) Current Condition History of Current Condition Onset Date 2019 Current Complaints Urinary incontinence History of Current Condition Lois is a 73 year old female with past medical history of left breast invasive ductal carcinoma and lumpectomy axillary node dissection in . She underwent radiation therapy followed by 5 years of tamoxifen. She suffered a ipsilateral new breast cancer in 2016. SHe underwent a mastectomy by Dr. Monzon on November 08 2016. In 2018 Lois had a fall landing on her left side and fracturing her ribs. This caused considerable pain. She gets quite a bit of pain from the mastectomy. She has been treated in our clinic previously for bladder leakage and had seen improvments. After her fall she stopped exercising due to pain and her bladder symptoms retunred. At this point she feels like has no control. Especially at night, even if she gets up to go to the bathroom she is soaked through her pad. Wakes up at 5-6 am and normally sleeps 8 hours. Goes to sleep close to 12:30 am then sleeps unitl 8:30 am. past medical history also includes type II diabetes and uses a C pap, she has a history of lumbar fusion and a pin in the SI joint. The daytime symptoms are not as bad. She has regular voiding schedules. Wears a pad # 5 during the day. Uses 3-4 pads per day and changes into a heavy duty pad for the night . Coughing increases urinary leakage. She can experience bowel urgency. Treatment Goals Patient/Caregiver Goals Pts goals are to decrease urinary leakage and improve strength of the pelvic floor Current Functional Impairments (Reported) Functional Limitations- ADL's Leaking is increased with light activity, changing positions such as sit-stand, walking ot the bathroom and witha strong urge to void. PT-OP-C Subjective Start: 01/26/20 13:00 Freq: Status: Active Protocol: Document 05/24/20 09:51 [facility] (Rec: 05/24/20 10:29 [facility] [id number]) OP-PT Subjective Patient Comments Patient Comments SHE NOTES HER SYMPTOMS HAVE BEEN REALLY GOOD. She notes overall her bladder symptoms have been lessened. She has not been wet when she wakes up PT-OP-I Pelvic Floor Start: 01/26/20 13:00 Freq: Status: Active Protocol: Document 01/26/20 09:09 [facility] (Rec: 01/28/20 09:17 [facility] [id number]) Pelvic Floor Assessment Urine Pelvic Floor Surgery No Urinary Symptoms Urge Sensation,Dribbling After Urination,Incomplete Emptying Leakage Size Large Leakage Cause Cough,Exercise,Lifting,Sneeze, Urge Leaks Per Day constant throughout the day Voiding Frequency 5 times per day Nocturia yes Pads Used In 24 Hours 5 Urine Pad Type Maxi Pad Pelvic Clock Pelvic Clock 12-3 Atrophy Pelvic Clock 3-6 Atrophy Pelvic Clock 6-9 Atrophy Pelvic Clock 9-12 Atrophy Contraction Ability Voluntary Contraction Weak Voluntary Relaxation Weak Manual Muscle Testing Left 2 Manual Muscle Testing Right 2 Manual Muscle Testing Anterior 2 Manual Muscle Testing Posterior 2 Muscle Endurance (Seconds) 4 PT-OP-J Posture/Palpation/Skin Start: 01/26/20 13:00 Freq: Status: Active Protocol: Document 01/26/20 09:09 [facility] (Rec: 01/28/20 09:17 [facility] [id number]) Posture Evaluation Comments Posture Comments pt sits in a forward flexed posture and has tightness under her rib cage which can contribute to pressure downward on her bladder. PT-OP-M Strength Start: 01/26/20 13:00 Freq: Status: Active Protocol: Document 01/26/20 09:09 [facility] (Rec: 01/28/20 09:17 [facility] [id number]) Trunk Strength Trunk Manual Muscle Testing Flexion 3 Fair Core Stabilization Poor core stabilization with poor ability to activate the transverse abdominal muscle Hip Strength Hip Manual Muscle Testing Right Extension (S1) 3 Fair Abduction 2+ Poor+ Adduction 2+ Poor+ Left Extension (S1) 2+ Poor+ Abduction 2+ Poor+ External Rotation 2+ Poor+ Comments difficulty performing a bridge from a supine position PT-OP-T Assessment and Plan Start: 01/26/20 13:00 Freq: Status: Active Protocol: Document 07/05/20 14:15 [facility] (Rec: 07/05/20 14:19 [facility] [id number]) Physical Therapy Assessment Assessment Summary Assessment I spoke with Lois via a phone conversation today. She suffered internal bleeding and is very anemic. At this time she is needing to cx her remaining PT visits due to not having energy to do any exercises. She will follow up at a later date when she is able to resume PT Physical Therapy Plan Discharge Physical Therapy Discharge Reasons Change in Medical Status Discharge Comments Pt unable to continue PT at this time due to anemia.
== END 2020-07-12 15:02 ==
LOC: PHYS 09:45
PROVIDERS: PCP Family Medicine; Referring Provider Family Medicine; Visit Provider Family Medicine
DX: R32 Unspecified urinary incontinence (principal)
CPT/HCPCS: 97110; 97161; 97530

== ENCOUNTER 2020-06-13 22:35 | Observation (INO) | payer MEDICARE, OTHER, SELFPAY ==
[2020-06-13 22:40] VITALS: BP 104/59; PULSE 78; RESP 18; TEMP 37; O2SAT 97; BMI 33.8
[2020-06-13 22:41] VITALS: PULSE 79; RESP 18; O2SAT 97
--- NOTE | 2020-06-13 22:44 | ED_ITS ---
HPI - General Adult General Chief complaint: GI Bleed Stated complaint: GI Bleed Time Seen by Provider: 06/13/20 22:44 Source: patient and EMS Mode of arrival: EMS Limitations: no limitations History of Present Illness HPI narrative: Patient is a 74-year-old female brought in by EMS for concerns of less than 24 hours of multiple episodes of black tarry stool and also a couple episodes of coffee-ground emesis. Patient has never had a GI bleed in the past. Denies use of alcohol. Not on anticoagulation, denies use of nonsteroidal anti-inflammatories. Denies use of aspirin. She is a insulin-dependent diabetic. She states for the past couple days she generally has not felt very well. I have seen her in the past for vertigo issues and she did have 1 episode of that a couple days ago but not since. She states she has felt very unsteady on her feet although she states that is not like her normal vertigo issue. Did have some abdominal discomfort earlier today. EMS initially reported her systolic blood pressure in the mid 80s prior to arrival. They were unable to obtain IV access so there is no intervention prior to arrival. Related Data Home Medications Medication Instructions Recorded Confirmed calcium carbonate [Calci-Chew] 600 mg PO QDAY #0 05/21/17 05/12/20 cholecalciferol (vitamin D3) 2,000 unit PO QDAY #0 06/20/17 05/12/20 cyanocobalamin (vitamin B-12) 1,000 mcg PO DAILY 02/28/18 05/12/20 [Vitamin B-12] vit C,V-Fk-uwopr-lutein-zeaxan 1 cap PO BID 02/28/18 05/12/20 [PreserVision AREDS 2] coenzyme Q10 100 mg capsule 100 mg PO DAILY 05/02/18 05/12/20 glimepiride 2 mg tablet 4 mg PO QAM tab 08/27/18 05/12/20 insulin aspart U-100 SUBCUT 01/29/20 05/12/20 metformin 500 mg tablet,extended 1,000 mg PO tab 01/29/20 05/12/20 release 24 hr Previous Rx's Medication Instructions Recorded pen needle, diabetic 31 gauge x #100 each 03/03/1810/16 insulin glargine 100 unit/mL (3 5 unit SUBCUT HS #15 ml 06/09/18 mL) subcutaneous pen blood sugar diagnostic #200 each 04/20/19 amlodipine 10 mg tablet 10 mg PO DAILY #90 tab 08/17/19 escitalopram oxalate 10 mg tablet 10 mg PO QDAY #90 tab 08/17/19 gabapentin 300 mg capsule 900 mg PO BEDTIME #270 cap 08/17/19 losartan 100 mg tablet 100 mg PO DAILY #90 tab 08/17/19 metoprolol tartrate 100 mg tablet 100 mg PO BID #180 tab 08/17/19 atorvastatin 10 mg tablet 10 mg PO HS #30 tab 10/30/19 zolpidem 10 mg tablet 5 mg PO BEDTIME PRN #45 tab 02/25/20 meclizine 25 mg PO TID PRN #12 tab 05/12/20 ondansetron HCl [Zofran] 4 mg PO Q6H PRN #10 tab 05/12/20 diclofenac sodium 75 mg 75 mg PO BID #60 tab 06/13/20 tablet,delayed release Allergies Allergy/AdvReac Type Severity Reaction Status Date / Time Anesthetics - Amide Type - Allergy Intermediate PROJECTILE Verified 06/13/20 09:53 Select A VOMITING [Anesthetics - Amide Type] Anesthetics - Keke Type- Allergy Intermediate PROJECTILE Verified 06/13/20 09:53 Parabens VOMITING [Anesthetics - Keke Type] Review of Systems Constitutional Constitutional: Reports fatigue, Denies fever(s), Denies headache(s) and Reports malaise ENT Ears, Nose, Mouth, and Throat: Denies dysphagia and Denies headache(s) Cardiovascular Cardiovascular: Denies chest pain and Denies dyspnea Respiratory Respiratory: Denies dyspnea Gastrointestinal Gastrointestinal: Reports abdominal pain, Reports melena, Denies dysphagia, Reports nausea and Reports vomiting Genitourinary Genitourinary: Denies dysuria Genitourinary: Denies dysuria Musculoskeletal Musculoskeletal: Denies arthralgias and Denies myalgias Integumentary/Breasts Skin/Breast: Denies lesions and Denies rash Neurologic Neurologic: Denies behavioral changes and Denies headache(s) Psychiatric Psychiatric: Denies behavioral changes Endocrine Endocrine: Reports fatigue Hematologic/Lymphatic Hematologic/Lymphatic: Denies easy bleeding and Denies easy bruising On Anticoagulants: No Allergic/Immunologic Allergic/Immunologic: Denies urticaria Patient History Medical History Anxiety Breast cancer (1992) Breast cancer, left breast (2016) Cataract (2010) Chicken pox Diabetes mellitus (~1987) Fractures GERD (gastroesophageal reflux disease) Hayfever (~1959) History of recurrent ear infection Hyperlipidemia (~1997) Hyperparathyroidism (2013) Hypertension (~1997) Impingement syndrome of right shoulder Lumbar spine pain Measles Osteopenia Osteoporosis Ribs, multiple fractures Right arm pain Shoulder pain (2014) Sternal fracture (2014) Urinary incontinence (2012) Vertigo (2011) Surgical History (Updated 06/13/20 @ 10:28 by Yang Yoder DO) Anesthesia complication H/O lumpectomy H/O mastectomy History of fusion of cervical spine (2011) History of knee replacement (2006) History of lumbar spinal fusion (2009) History of lumbar spinal fusion Family History Father Hypertension High cholesterol Pneumonia Mother Hypertension Mental health problem Stroke History of hip surgery Grandfather Heart disease Hypertension High cholesterol Grandmother Hypertension High cholesterol Social History marital status: household members: spouse occupational status: other Smoking Status: Never smoker alcohol intake: never substance use type: does not use Smoking Status: Never smoker alcohol intake frequency: 0-2 drinks per day Substance Use Type: does not use Exam Initial Vital Signs Initial Vital Signs: Vital Signs Temperature 98.6 F 06/13/20 22:40 Pulse Rate 78 06/13/20 22:40 Respiratory Rate 18 06/13/20 22:40 Blood Pressure 104/59 L 06/13/20 22:40 Pulse Oximetry 97 06/13/20 22:40 Const General: cooperative and comfortable Limitations: mental status not altered HENME Head: normal to inspection and normocephalic Resp Effort & Inspection: normal respiratory effort Auscultation: clear to auscultation bilaterally Cardio Rate: regular rate Rhythm: regular rhythm GI Inspection: non-distended Palpation: soft and No firm Rectal Exam: heme positive stool Skin Other: Patient has had a mastectomy on the left. There is no signs of abscess or cyst or skin changes according to the patient. Neuro General: patient alert, patient awake and patient oriented x3 Cognition: normal cognition Speech: speech normal Extrem General: normal to inspection and capillary refill normal Psych Appearance: grossly normal and well kempt Scores GCS Sutton coma scale eye opening: Spontaneous Scar coma scale verbal response: Orientated Sutton coma scale motor response: Obey commands Scar coma scale total score: 15 Course Orders Ordered: ED Orders 06/13/20 22:46 CT abdomen pelvis w con Stat 06/13/20 23:18 Complete Blood Count AUTO DIFF Stat Type and Screen Stat 06/13/20 23:25 Comprehensive Metabolic Panel Stat Lactate (Lactic Acid) Stat Lipase Stat Partial Thromboplastin Time Stat Prothrombin Time INR Stat 06/14/20 01:11 Hemoglobin and Hematocrit Stat Lactate (Lactic Acid) Stat 06/14/20 02:12 COVID19 Stat 06/14/20 02:20 COVID19 Stat 06/14/20 02:23 Consult to General Surgery Stat Pantoprazole Sodium 80 mg/ (Sodium Chloride) 100 mls @ 10 mls/hr IV CONT YAJAIRA Last Admin: 06/13/20 22:59 Dose: 8 mg/hr, 10 mls/hr Documented by: GT Sodium Chloride (Normal Saline 0.9%) 1,000 mls @ 100 mls/hr IV CONT YAJAIRA Last Admin: 06/13/20 23:01 Dose: 100 mls/hr Documented by: GT Discontinued Medications Ondansetron HCl (Ondansetron 4 Mg/2 Ml Inj) 4 mg IV NOW ONE Stop: 06/13/20 23:32 Last Admin: 06/14/20 00:00 Dose: 4 mg Documented by: GT Pantoprazole Sodium (Pantoprazole 40 Mg Vial) 80 mg IV NOW ONE Stop: 06/13/20 22:45 Last Admin: 06/13/20 22:59 Dose: 80 mg Documented by: GT Vital Signs Vital signs: Vital Signs - 8 hr 06/13/20 22:40 06/13/20 22:41 06/13/20 23:00 Temperature 98.6 F Pulse Rate 78 79 76 Respiratory Rate 18 18 21 Blood Pressure 104/59 L Pulse Oximetry 97 97 98 06/13/20 23:30 06/13/20 23:43 06/14/20 00:06 Temperature Pulse Rate 72 75 80 Respiratory Rate 21 22 Blood Pressure 121/57 L Pulse Oximetry 98 96 06/14/20 00:12 06/14/20 00:30 06/14/20 01:00 Temperature Pulse Rate 76 78 82 Respiratory Rate 20 17 Blood Pressure 169/82 H 173/71 H Pulse Oximetry 97 97 97 06/14/20 01:01 Temperature Pulse Rate 85 Respiratory Rate Blood Pressure 163/78 H Pulse Oximetry 98 Medical Decision Making Medical Records Medical records reviewed: Yes I reviewed the patient's medical records. Lab Data Lab results reviewed: Yes I reviewed the patient's lab results. Result diagrams: 06/14/20 01:11 06/13/20 23:25 Labs: Lab Results 06/13/20 06/13/20 06/13/20 Range/Units 23:18 23:18 23:25 WBC 11.3 H (4.5-11.0) X10^3/uL RBC 3.56 L (4.0-5.2) X10^6/uL Hgb 10.1 L (12.0-16.0) g/dL Hct 31.0 L (36-46) % MCV 87.3 (80-100) fL MCH 28.5 (26-34) PG MCHC 32.7 (30-36) % RDW 14.1 (11.6-14.8) % Plt Count 290 (150-400) X10^3/uL Neut % (Auto) 92.0 H (50-75) % Lymph % (Auto) 5.3 L (25-40) % [place] % (Auto) 1.8 L (3-14) % Eos % (Auto) 0.0 L (2-4) % Baso % (Auto) 0.9 (0-2) % Neut # (Auto) 10511 H (5016-0628) /uL Lymph # (Auto) 600 L (6549-3030) /uL [place] # (Auto) 200 (0-900) /uL Eos # (Auto) 0 (0-450) /uL Baso # (Auto) 100 (0-100) /uL PT (10.1-12.7) SECONDS INR (0.9-1.3) APTT (26.4-36.2) SECONDS Sodium 135 L (137-145) mmol/L Potassium 5.0 (3.4-5.1) mmol/L Chloride 101 (98-107) mmol/L Carbon Dioxide 24 (22-32) mmol/L BUN 76 H (7-17) mg/dL Creatinine 1.25 H (0.52-1.04) mg/dL Estimated GFR 41.9 L (>60) mL/min BUN/Creatinine Ratio 60.8 H (6-22) Glucose 325 H (80-110) mg/dL Lactate (0.7-2.1) mmol/L Calcium 8.9 (8.4-10.2) mg/dL Total Bilirubin 0.5 (0.2-1.3) mg/dL AST 28 (14-36) IU/L ALT 22 (<35) IU/L Alkaline Phosphatase 57 (38-126) U/L Total Protein 6.6 (6.3-8.2) g/dL Albumin 3.9 (3.5-5.0) g/dL Globulin 2.7 (1.7-4.1) g/dL Albumin/Globulin Ratio 1.4 (1.0-2.8) Lipase (23-300) U/L Blood Type A Positive Antibody Screen Negative 06/13/20 06/13/20 06/13/20 Range/Units 23:25 23:25 23:25 WBC (4.5-11.0) X10^3/uL RBC (4.0-5.2) X10^6/uL Hgb (12.0-16.0) g/dL Hct (36-46) % MCV (80-100) fL MCH (26-34) PG MCHC (30-36) % RDW (11.6-14.8) % Plt Count (150-400) X10^3/uL Neut % (Auto) (50-75) % Lymph % (Auto) (25-40) % [place] % (Auto) (3-14) % Eos % (Auto) (2-4) % Baso % (Auto) (0-2) % Neut # (Auto) (5990-7313) /uL Lymph # (Auto) (1418-9381) /uL [place] # (Auto) (0-900) /uL Eos # (Auto) (0-450) /uL Baso # (Auto) (0-100) /uL PT 12.8 H (10.1-12.7) SECONDS INR 1.1 (0.9-1.3) APTT 23 L (26.4-36.2) SECONDS Sodium (137-145) mmol/L Potassium (3.4-5.1) mmol/L Chloride (98-107) mmol/L Carbon Dioxide (22-32) mmol/L BUN (7-17) mg/dL Creatinine (0.52-1.04) mg/dL Estimated GFR (>60) mL/min BUN/Creatinine Ratio (6-22) Glucose (80-110) mg/dL Lactate 3.7 H (0.7-2.1) mmol/L Calcium (8.4-10.2) mg/dL Total Bilirubin (0.2-1.3) mg/dL AST (14-36) IU/L ALT (<35) IU/L Alkaline Phosphatase (38-126) U/L Total Protein (6.3-8.2) g/dL Albumin (3.5-5.0) g/dL Globulin (1.7-4.1) g/dL Albumin/Globulin Ratio (1.0-2.8) Lipase 254 (23-300) U/L Blood Type Antibody Screen 06/14/20 06/14/20 Range/Units 01:11 01:11 WBC (4.5-11.0) X10^3/uL RBC (4.0-5.2) X10^6/uL Hgb 9.7 L (12.0-16.0) g/dL Hct 29.2 L (36-46) % MCV (80-100) fL MCH (26-34) PG MCHC (30-36) % RDW (11.6-14.8) % Plt Count (150-400) X10^3/uL Neut % (Auto) (50-75) % Lymph % (Auto) (25-40) % [place] % (Auto) (3-14) % Eos % (Auto) (2-4) % Baso % (Auto) (0-2) % Neut # (Auto) (6717-4154) /uL Lymph # (Auto) (3760-5433) /uL [place] # (Auto) (0-900) /uL Eos # (Auto) (0-450) /uL Baso # (Auto) (0-100) /uL PT (10.1-12.7) SECONDS INR (0.9-1.3) APTT (26.4-36.2) SECONDS Sodium (137-145) mmol/L Potassium (3.4-5.1) mmol/L Chloride (98-107) mmol/L Carbon Dioxide (22-32) mmol/L BUN (7-17) mg/dL Creatinine (0.52-1.04) mg/dL Estimated GFR (>60) mL/min BUN/Creatinine Ratio (6-22) Glucose (80-110) mg/dL Lactate 2.8 H (0.7-2.1) mmol/L Calcium (8.4-10.2) mg/dL Total Bilirubin (0.2-1.3) mg/dL AST (14-36) IU/L ALT (<35) IU/L Alkaline Phosphatase (38-126) U/L Total Protein (6.3-8.2) g/dL Albumin (3.5-5.0) g/dL Globulin (1.7-4.1) g/dL Albumin/Globulin Ratio (1.0-2.8) Lipase (23-300) U/L Blood Type Antibody Screen Point of Care Testing Glucose POC 256 Point of care testing: Point of Care Testing Glucose POC [address] scan - abdomen/pelvis: Radiologist's Impression: Possible cystitis Partially visualized left chest wall suspected abscess Diverticulosis without evidence of acute diverticulitis MDM Narrative Medical decision making narrative: Patient has been alert and oriented since arrival here in the emergency department. Patient has never had a systolic blood pressure less than 100 since arrival. She has not been tachycardic. Had heme-positive stools. Has not vomited or had a bowel movement since arrival. Protonix drip started. CT scan the abdomen pelvis show no acute pathology. The suspected finding of a left chest wall abscess is not consistent with any abscess on physical exam. Patient states that the skin over her site of the left mastectomy has been consistent and not changed. No antibiotics were administered because of this. Patient initially had elevated lactate which improved with only minimal fluid hydration. Patient attempted to stand at bedside became very unsteady and lightheaded. Was not tachycardic. Was able to ambulate but did require quite a bit of assistance by nursing staff. I did discuss the case with Dr. no with General surgery who asked the patient be admitted to the medicine service for further evaluation and anticipation of upper endoscopy later today. I then discussed the case with KEIRA Olivas [facility] provider who admit for further evaluation. I did discuss the admission with the patient. She expressed understanding and agreement. Discharge Plan Departure Patient Disposition: Admitted as Observation Clinical Impression: Acute upper GI bleed, CKD (chronic kidney disease), Diabetes, Hyperglycemia Admit Date/Time: 06/14/20 02:25 Admit Provider: Dot Olivas
--- NOTE | 2020-06-13 22:46 | DI.CT.S_ITS ---
PROCEDURE: CT ABDOMEN PELVIS W CON INDICATIONS: GI bleed TECHNIQUE: After the administration of intravenous contrast, 5 mm thick sections acquired from the diaphragm to the symphysis. 5 mm coronal and sagittal reformats were acquired. For radiation dose reduction, the following was used: automated exposure control, adjustment of mA and/or kV according to patient size. COMPARISON: [facility], CT, CT ABDOMEN PELVIS W CON, 02/28/2018, 15:12. FINDINGS: Image quality: Excellent. ABDOMEN: Lung bases: There is mild dependent atelectasis. Heart size is normal. Solid organs: There is a small oval hypoattenuating lesion within the inferior right hepatic lobe measuring up to 1.1 cm which demonstrates indeterminate attenuation values but appears similar in size to the prior study. There are 3 small cysts also redemonstrated within the right hepatic lobe. The gallbladder appears within normal limits without calcified gallstones. Biliary system is non-dilated. Pancreas enhances normally. No peripancreatic fat stranding or fluid collections. No pancreatic duct dilatation. The spleen is normal in size. No adrenal nodules. Kidneys demonstrate no hydronephrosis. The kidneys are lobulated in contour. Peritoneum and bowel: Small loops demonstrate normal wall thickness and caliber. The appendix is normal in appearance. There is colonic diverticulosis without acute diverticulitis. There is mild segmental wall thickening within the distal descending colon and the sigmoid colon although evaluation is limited by nondistention. No free fluid or air. Nodes and vessels: No retroperitoneal or mesenteric adenopathy by size criteria. Aorta and inferior vena cava are normal in size. Miscellaneous: No ventral hernias. PELVIS: Genitourinary: There is incomplete distention of the urinary bladder with mild bladder wall thickening and minimal associated fat stranding. An exophytic mass along the posterior right aspect of the uterus is compatible with a fibroid and appears similar to the prior study. Miscellaneous: No inguinal hernias or adenopathy. Bones: No suspicious bony lesions. No vertebral body compression fractures. Postsurgical changes are again demonstrated status post posterior fixation in the lumbosacral spine. IMPRESSION: 1. Mild segmental wall thickening of the descending and sigmoid colon may reflect a mild colitis versus artifact from nondistention. Recommend correlation clinically. 2. Colonic diverticulosis without acute diverticulitis. 3. Mild bladder wall thickening with associated minimal fat stranding suggestive of a mild cystitis. Recommend correlation with urinalysis. Dictated by: Magan Tavares M.D. on 06/14/2020 at 9:21 Approved by: Magan Tavares M.D. on 06/14/2020 at 9:32
[2020-06-13] MEDS: PANTOPRAZOLE 80 MG in SODIUM CHLORIDE 0.9% 100 ML 10 ML IV (22:59)
[2020-06-13] MEDS: PANTOPRAZOLE 40 MG VIAL 80 MG IV (22:59)
[2020-06-13 23:00] VITALS: PULSE 76; RESP 21; O2SAT 98
[2020-06-13] MEDS: SODIUM CHLORIDE 0.9% 1,000 ML 100 ML IV (23:01)
[2020-06-13 23:24] LABS: Add Manual Diff / Slide Review NO; Basophils Absolute Auto 100 /uL (0-100); Basophils Percent Auto 0.9 % (0-2); Eosinophils Absolute Auto 0 /uL (0-450); Hemoglobin 10.1 g/dL (12.0-16.0); Lymphocytes Absolute Auto 600 /uL (1100-4500); Lymphocytes Percent Auto 5.3 % (25-40); Mean Corpuscular HGB Conc 32.7 % (30-36); Mean Corpuscular Hemoglobin 28.5 PG (26-34); Mean Corpuscular Volume 87.3 fL (80-100); Monocytes Absolute Auto 200 /uL (0-900); Monocytes Percent Auto 1.8 % (3-14); Neutrophils Absolute Auto 10400 /uL (1500-7000); Platelet Count 290 X10^3/uL (150-400); Red Blood Cell Count 3.56 X10^6/uL (4.0-5.2); Red Cell Distribution Width 14.1 % (11.6-14.8); White Blood Cell Count 11.3 X10^3/uL (4.5-11.0)
[2020-06-13 23:30] VITALS: PULSE 72; RESP 21; O2SAT 98
[2020-06-13 23:41] LABS: INR 1.1 (0.9-1.3); Prothrombin Time 12.8 SECONDS (10.1-12.7)
[2020-06-13 23:43] VITALS: BP 121/57; PULSE 75; RESP 22; O2SAT 96
[2020-06-13 23:43] LABS: PTT Partial Thromboplastin Tim 23 SECONDS (26.4-36.2)
[2020-06-13 23:45] LABS: Alanine Aminotransferase 22 IU/L (<35); Albumin 3.9 g/dL (3.5-5.0); Albumin Globulin Ratio 1.4 (1.0-2.8); Alkaline Phosphatase 57 U/L (38-126); Aspartate Aminotransferase 28 IU/L (14-36); BUN Creatinine Ratio 60.8 (6-22); Bilirubin Total 0.5 mg/dL (0.2-1.3); Blood Urea Nitrogen 76 mg/dL (7-17); Calcium 8.9 mg/dL (8.4-10.2); Carbon Dioxide 24 mmol/L (22-32); Chloride 101 mmol/L (98-107); Estimated Glomerular Filt Rate 41.9 mL/min (>60); Globulin 2.7 g/dL (1.7-4.1); Glucose 325 mg/dL (80-110); Sodium 135 mmol/L (137-145); Total Protein 6.6 g/dL (6.3-8.2)
[2020-06-13 23:50] LABS: HEMOLYSIS 58 (0-50)
[2020-06-13 23:57] LABS: Lipase 254 U/L (23-300)
[2020-06-14] VITALS (20 sets, daily range): BP systolic 105–173; BP diastolic 41–82; PULSE 65–106; RESP 12–20; TEMP 36.6–37.4; O2SAT 81–99; BMI 33.1
[2020-06-14] MEDS: ONDANSETRON 4 MG/2 ML INJ IV
--- NOTE | 2020-06-14 | PATH_ITS ---
[facility] Accession Number: [id number] . 01 Material submitted: . PART A: pyloric antrum - PYLORIC MASS FOR BIOPSY PART B: gastrointestinal site - RANDOM GASTRIC BIOPSY . 01 Clinical history: . GI BLEED . 02 Diagnosis: A. Stomach, Pyloric Mass, Biopsy: Multiple fagments of antral mucosa with foveolar hyperplasia. No evidence of Helicobacter on H/E stain. Negative for intestinal metaplasia. Negative for dysplasia and malignancy. . B. Stomach, Random Biopsies: Antral mucosa with mild chronic gastritis. Negative for Helicobacter by immunohistochemistry. Negative for intestinal metaplasia. Negative for dysplasia and malignancy. V 06/21/2020 1503 Local . 02 Electronically signed: . Michelle Jones MD, Pathologist NPI- [id number] . 01 Gross description: . Part A: PYLORIC MASS FOR BIOPSY: Received in formalin are 4 fragment(s) of bynum, soft tissue measuring 0.1 x 0.1 x 0.1 cm to 0.2 x 0.2 x 0.1 cm submitted entirely in 1 cassette(s) Part B: RANDOM GASTRIC BIOPSY: Received in formalin are 3 fragment(s) of bynum, soft tissue measuring 0.1 x 0.1 x 0.1 cm to 0.3 x 0.2 x 0.2 cm submitted entirely in 1 cassette(s) /ELIN 06/15/2020 2218 Local . 02 Microscopic: . A. Additional levels were examined. An alcian blue stain was performed to evaluate for intestinal metaplasia and is negative. The control stain showed appropriate reactivity. . B. An immunohistochemcal stain was performed to evaluate for Helicobacter organisms and is negative. The control stain showed appropriate reactivity. . * This test was developed and its performance characteristics determined by [employer]. It has not been cleared or approved by the U.S. Food and Drug Administration. The FDA has determined that such clearance or approval is not necessary. This test is used for clinical purposes. It should not be regarded as investigational or for research. . 02 Pathologist provided ICD-10: K92.2 . 02 CPT . 796778, 887382, 919888, D49520 Performed at: 01 [facility] [address] [place] [address], [place], [place] [id number] MD Magan Alicea MD Phone: [phone] Performed at: 02 [facility] [address] [place] [id number] MD Michelle Jones MD Phone: [phone]
[2020-06-14 00:16] LABS: Lactate (Lactic Acid) 3.7 mmol/L (0.7-2.1)
[2020-06-14 01:22] LABS: Hematocrit 29.2 % (36-46); Hemoglobin 9.7 g/dL (12.0-16.0)
[2020-06-14 01:29] LABS: Reflexed Lactate in 2 Hours Y
[2020-06-14 01:44] LABS: Lactate (Lactic Acid) 2.8 mmol/L (0.7-2.1)
[2020-06-14 02:36] LABS: COVID19 -Nasal RAPID Negative (Negative)
[2020-06-14 03:17] LABS: Reflexed Lactate in 2 Hours Y
--- NOTE | 2020-06-14 03:36 | PM.HP.1 ---
History of Present Illness History of Present Illness Date Patient Seen: 06/14/20 Time Patient Seen: 03:36 Chief complaint: GI Bleed Narrative: Lois Barakat is a pleasant 74 y.o. female with a history of left sided breast cancer, lymphedema of the left arm, chronic kidney disease, diabetes type 2, hypertension and hyperlipidemia presented to the ED around dinner time on 06/13 after having hematemesis, and melana. She had a small breakfast, followed by a small lunch when she developed diarrhea. By late afternoon, she began throwing up blood and had dark tarry stool. She felt hot and cold but did not have a fever. She denies abdominal cramping but has generalized aching across her lower abdomen. She is not taking any blood thinners, nor has started any new medications. She recently had a cortisone injection in her left shoulder. CT of the abdomen and pelvis was reported by the ED provider to be Possible cystitis, partially visualized left chest wall suspected abscess. Diverticulosis without evidence of acute diverticulitis patient is afebrile, blood pressure 141/61, heart rate 83, respiratory rate 18, oxygen saturation 99% on room air, she weighs 82 kg with a BMI of 33. She has a mildly elevated WBC at 11.3 likely the cortisone injection may contribute to this, RBC 3.56, hemoglobin 9.7, hematocrit 29.2, platelet count 290, she does have a left shift, sodium was 135, potassium 5.0, chloride 101, CO2 24, creatinine 1.25, BUN 76, GFR is 41.9, glucose 325, hemoglobin A1c is 8.0, lactate 2.8 down from 3.7 after hydration, liver enzymes were within normal limits, and COVID-19 PCR was negative. Patient History Medical History (Updated 06/14/20 @ 04:04 by ALEXSANDER Neal) Anxiety Breast cancer (1992) Breast cancer, left breast (2016) Cataract (2010) Chicken pox Diabetes mellitus (~1987) Fractures GERD (gastroesophageal reflux disease) Hayfever (~1959) History of recurrent ear infection Hyperlipidemia (~1997) Hyperparathyroidism (2013) Hypertension (~1997) Impingement syndrome of right shoulder Lumbar spine pain Measles Osteopenia Osteoporosis Ribs, multiple fractures Right arm pain Shoulder pain (2014) Sternal fracture (2014) Urinary incontinence (2012) Vertigo (2011) Surgical History Anesthesia complication H/O lumpectomy H/O mastectomy History of fusion of cervical spine (2011) History of knee replacement (2006) History of lumbar spinal fusion (2009) History of lumbar spinal fusion Family & Social History Family History Father Hypertension High cholesterol Pneumonia Mother Hypertension Mental health problem Stroke History of hip surgery Grandfather Heart disease Hypertension High cholesterol Grandmother Hypertension High cholesterol Social History: household members spouse Safety & Behavioral: Feels Safe in Current Yes Environment Been Physically Hurt or No Threatened By a Person Tobacco & Substance use: Smoking Status Never smoker alcohol intake never alcohol intake frequency 0-2 drinks per day Substance Use Type does not use Meds Home Medications and Allergies Home Medications Medication Instructions Recorded Confirmed Type calcium carbonate [Calci-Chew] 600 mg PO QDAY #0 05/21/17 05/12/20 History cholecalciferol (vitamin D3) 2,000 unit PO QDAY #0 06/20/17 05/12/20 History cyanocobalamin (vitamin B-12) 1,000 mcg PO DAILY 02/28/18 05/12/20 History [Vitamin B-12] vit C,S-It-wvhdh-lutein-zeaxan 1 cap PO BID 02/28/18 06/14/20 History [PreserVision AREDS 2] pen needle, diabetic 31 gauge x #100 each 03/03/18 05/12/20 Rx 10/16 coenzyme Q10 100 mg capsule 100 mg PO DAILY 05/02/18 05/12/20 History insulin glargine 100 unit/mL (3 5 unit SUBCUT HS #15 ml 06/09/18 05/12/20 Rx mL) subcutaneous pen glimepiride 2 mg tablet 4 mg PO QAM tab 08/27/18 06/14/20 History blood sugar diagnostic #200 each 04/20/19 05/12/20 Rx amlodipine 10 mg tablet 10 mg PO DAILY #90 tab 08/17/19 06/14/20 Rx escitalopram oxalate 10 mg tablet 10 mg PO QDAY #90 tab 08/17/19 06/14/20 Rx gabapentin 300 mg capsule 900 mg PO BEDTIME #270 cap 08/17/19 06/14/20 Rx losartan 100 mg tablet 100 mg PO DAILY #90 tab 08/17/19 06/14/20 Rx metoprolol tartrate 100 mg tablet 100 mg PO BID #180 tab 08/17/19 06/14/20 Rx atorvastatin 10 mg tablet 10 mg PO HS #30 tab 10/30/19 06/14/20 Rx insulin aspart U-100 SUBCUT 01/29/20 05/12/20 History metformin 500 mg tablet,extended 1,000 mg PO DAILY tab 01/29/20 06/14/20 History release 24 hr zolpidem 10 mg tablet 5 mg PO BEDTIME PRN #45 tab 02/25/20 06/14/20 Rx meclizine 25 mg PO TID PRN #12 tab 05/12/20 06/14/20 Rx ondansetron HCl [Zofran] 4 mg PO Q6H PRN #10 tab 05/12/20 06/14/20 Rx insulin glargine [Basaglar KwikPen 12 unit SUBCUT DAILY 06/14/20 06/14/20 History U-100 Insulin] sitagliptin [Januvia] 100 mg PO DAILY 06/14/20 06/14/20 History Allergies Allergy/AdvReac Type Severity Reaction Status Date / Time Anesthetics - Amide Type - Allergy Intermediate PROJECTILE Verified 06/13/20 09:53 Select A VOMITING [Anesthetics - Amide Type] Anesthetics - Keke Type- Allergy Intermediate PROJECTILE Verified 06/13/20 09:53 Parabens VOMITING [Anesthetics - Keke Type] Review of Systems Review of Systems ROS: Yes All systems reviewed with the patient and are negative except as otherwise documented Exam Vital Signs (past 8 hours): - 06/13/20 22:40 06/13/20 22:41 06/13/20 23:00 Temperature 98.6 F Pulse Rate 78 79 76 Respiratory Rate 18 18 21 Blood Pressure 104/59 L Pulse Oximetry 97 97 98 06/13/20 23:30 06/13/20 23:43 06/14/20 00:06 Temperature Pulse Rate 72 75 80 Respiratory Rate 21 22 Blood Pressure 121/57 L Pulse Oximetry 98 96 06/14/20 00:12 06/14/20 00:30 06/14/20 01:00 Temperature Pulse Rate 76 78 82 Respiratory Rate 20 17 Blood Pressure 169/82 H 173/71 H Pulse Oximetry 97 97 97 06/14/20 01:01 06/14/20 03:32 Temperature 98.6 F Pulse Rate 85 83 Respiratory Rate 18 Blood Pressure 163/78 H 141/61 H Pulse Oximetry 98 99 Oxygen Delivery Method Room Air Oxygen Flow Rate 0 Narrative Exam Narrative: Gen: Alert, oriented, well-developed 74 y.o. female, appears pale and mildly jaundiced HEENT: normocephalic, atraumatic, conjunctiva clear, sclera non-icteric, oral mucosa pink and moist Neck: supple, full ROM, no JVD, trachea is midline Resp: Lungs CTA, non-labored breathing Chest: left sided mastectomy CV: RRR, no murmur or rubs Abd: soft, non-tender, normoactive BTs Skin: no lesions or rashes, dry and intact Neuro: Alert and oriented X 4 w/no focal deficits. Speech clear and coherent. Extremities: moves all 4 extremities, is ambulatory, negative Christopher?s sign, left leg slightly more edetamous than right Psyche: normal mood and affect. Objective Labs Result Diagrams: 06/14/20 01:11 06/13/20 23:25 Labs: Laboratory Results - last 24 hr 06/13/20 06/13/20 06/13/20 23:18 23:18 23:25 WBC 11.3 H RBC 3.56 L Hgb 10.1 L Hct 31.0 L MCV 87.3 MCH 28.5 MCHC 32.7 RDW 14.1 Plt Count 290 Neut % (Auto) 92.0 H Lymph % (Auto) 5.3 L [place] % (Auto) 1.8 L Eos % (Auto) 0.0 L Baso % (Auto) 0.9 Neut # (Auto) 12151 H Lymph # (Auto) 600 L [place] # (Auto) 200 Eos # (Auto) 0 Baso # (Auto) 100 PT INR APTT Sodium 135 L Potassium 5.0 Chloride 101 Carbon Dioxide 24 BUN 76 H Creatinine 1.25 H Estimated GFR 41.9 L BUN/Creatinine Ratio 60.8 H Glucose 325 H Lactate Calcium 8.9 Total Bilirubin 0.5 AST 28 ALT 22 Alkaline Phosphatase 57 Total Protein 6.6 Albumin 3.9 Globulin 2.7 Albumin/Globulin Ratio 1.4 Lipase SARS-CoV-2 (PCR) Blood Type A Positive Antibody Screen Negative 01/04/2306/13/20 06/13/20 23:25 23:25 23:25 WBC RBC Hgb Hct MCV MCH MCHC RDW Plt Count Neut % (Auto) Lymph % (Auto) [place] % (Auto) Eos % (Auto) Baso % (Auto) Neut # (Auto) Lymph # (Auto) [place] # (Auto) Eos # (Auto) Baso # (Auto) PT 12.8 H INR 1.1 APTT 23 L Sodium Potassium Chloride Carbon Dioxide BUN Creatinine Estimated GFR BUN/Creatinine Ratio Glucose Lactate 3.7 H Calcium Total Bilirubin AST ALT Alkaline Phosphatase Total Protein Albumin Globulin Albumin/Globulin Ratio Lipase 254 SARS-CoV-2 (PCR) Blood Type Antibody Screen 06/14/20 06/14/20 06/14/20 01:11 01:11 02:12 WBC RBC Hgb 9.7 L Hct 29.2 L MCV MCH MCHC RDW Plt Count Neut % (Auto) Lymph % (Auto) [place] % (Auto) Eos % (Auto) Baso % (Auto) Neut # (Auto) Lymph # (Auto) [place] # (Auto) Eos # (Auto) Baso # (Auto) PT INR APTT Sodium Potassium Chloride Carbon Dioxide BUN Creatinine Estimated GFR BUN/Creatinine Ratio Glucose Lactate 2.8 H Calcium Total Bilirubin AST ALT Alkaline Phosphatase Total Protein Albumin Globulin Albumin/Globulin Ratio Lipase SARS-CoV-2 (PCR) Negative Blood Type Antibody Screen Assessment & Plan Assessment & Plan narrative: Lois Barakat will be placed into observation with a suspected upper GI bleed. Suspected upper GI bleed, acute and present on admission -She initially presented with an elevated lactate of 3.7, decreased to 2.8 after IVF hydration -She was initiated on a protonix drip in the ED and will be continued until the bag runs out. Thereafter protonix 40 mg IV BID -Dr. Monzon is consulted and plans to do an upper GI scope Diabetes type 2 with an A1c of 8.0, suboptimally controlled -Continue home dose of Lantus 5 units in the am and 12 units in the evening. Oral antidiabetics are held and medium dose regular insulin correctional scale q 6 hours -Elevated blood glucose may be due to the kenolog injection she received, but overall A1c indicates suboptimal control Left sided lower extremity swelling -Venous doppler u/s of the left leg. Chronic kidney disease Stage 3, likely chronic -Creatinine is 1.25 with a GFR of 41.9 -Baseline creatinine ranges between 1.20 and 1.40 though GFR is lower than her baseline -Fluid hydration, monitor kidney function daily History of left sided breast cancer, stable -She is under active surveillance by Dr. Sanders Essential hypertension, chronic and stable -Continue home dose of metoprolol 100 mg po bid, amlodipine 10 mg po daily and losartan 100 mg po daily Pain associated with a pathological Rib #6 fracture -She was taking diclofenac 75 mg po bid, this will be discontinued due to bleeding risk -Continue home dose of gabapentin 900 mg po at bed time VTE prophylaxis: Wells risk score: 1 Bilateral SCDs Consults: Dr. Monzon, consult and involvement is appreciated. Patient is observation status as her stay is not likely to exceed 2 midnights. FEN: IV NS at 100 ml/hour, NPO except chips, BMP and magnesium in the am. Dispo: probable discharge to home Code Status: DNR/DNI as discussed with patient COVID-19 COVID-19 status: Negative Result date/Date tested (Pos, Neg/Pending): 06/14/20 Scores Wells' Criteria for PE Clinical signs and symptoms of DVT: No PE is #1 Dx or equally likely: No Heart rate > 100: No Immobilization at least 3 days or surg in previous 4 weeks: No History of PE or DVT: No Hemoptysis: No Malignancy w/Treatment within 6 months or palliative: No Wells' PE Score total: 0
[2020-06-14] MEDS: ESCITALOPRAM 10 MG TABLET PO (04:04)
[2020-06-14] MEDS: ATORVASTATIN 20 MG TABLET 10 MG PO (04:04)
--- NOTE | 2020-06-14 04:46 | PC.ADMIT ---
Patient admitted at 0310 to room 203 from ER. Has been having black tarry stools and bloody emesis prior to arrival in ER. Is alert and oriented but has difficulty finding words. Breath sounds CTA with RA sat of 99%. HRR with telemetry reading of SR. Denies nausea at present time. BT present and abdomen is soft. Denies dysuria, frequency or urgency but does report stress incontinence. Is able to move herself in bed. Has weakness in lower extremities and gets dizzy when walking so will need assistance to bathroom. No skin breakdown noted. Has had left breast mastectomy and has left lymphedema. Bilateral LE edema left > right. Denies pain. Fall risk score is moderate and bed alarm is activated. Bilateral calf SCD's applied. CBG on admission was 231 but per ALEXSANDER Olivas, will recheck at 0600 and administer sliding scale coverage if needed then. [email or web address] Micki Milan Admission Note: The patient,Lois Barakat,74 y/o, was given written information regarding hospital policies, unit procedures and contact persons. Patient's smoking status: Never smoker. Vital Signs - 8 hr 06/13/20 22:40 06/13/20 22:41 06/13/20 23:00 Temperature 98.6 F Pulse Rate 78 79 76 Respiratory Rate 18 18 21 Blood Pressure 104/59 L Pulse Oximetry 97 97 98 06/13/20 23:30 06/13/20 23:43 06/14/20 00:06 Temperature Pulse Rate 72 75 80 Respiratory Rate 21 22 Blood Pressure 121/57 L Pulse Oximetry 98 96 06/14/20 00:12 06/14/20 00:30 06/14/20 01:00 Temperature Pulse Rate 76 78 82 Respiratory Rate 20 17 Blood Pressure 169/82 H 173/71 H Pulse Oximetry 97 97 97 06/14/20 01:01 06/14/20 03:32 Temperature 98.6 F Pulse Rate 85 83 Respiratory Rate 18 Blood Pressure 163/78 H 141/61 H Pulse Oximetry 98 99
[2020-06-14 06:00] LABS: Add Manual Diff / Slide Review NO; Basophils Absolute Auto 100 /uL (0-100); Basophils Percent Auto 0.5 % (0-2); Eosinophils Absolute Auto 0 /uL (0-450); Hematocrit 26.8 % (36-46); Hemoglobin 8.9 g/dL (12.0-16.0); Lymphocytes Absolute Auto 1000 /uL (1100-4500); Lymphocytes Percent Auto 9.1 % (25-40); Mean Corpuscular HGB Conc 33.4 % (30-36); Mean Corpuscular Hemoglobin 28.8 PG (26-34); Monocytes Absolute Auto 400 /uL (0-900); Monocytes Percent Auto 3.7 % (3-14); Neutrophils Absolute Auto 9400 /uL (1500-7000); Neutrophils Percent Auto 86.7 % (50-75); Platelet Count 249 X10^3/uL (150-400); Red Blood Cell Count 3.11 X10^6/uL (4.0-5.2); Red Cell Distribution Width 14.1 % (11.6-14.8); White Blood Cell Count 10.8 X10^3/uL (4.5-11.0)
[2020-06-14] MEDS: INSULIN ASPART 100 UNIT/ML INSULN PEN SUBCUT ×3 (06:15→17:02)
[2020-06-14 06:34] LABS: BUN Creatinine Ratio 54.9 (6-22); Blood Urea Nitrogen 67 mg/dL (7-17); Calcium 8.7 mg/dL (8.4-10.2); Carbon Dioxide 27 mmol/L (22-32); Chloride 104 mmol/L (98-107); Estimated Glomerular Filt Rate 43.1 mL/min (>60); Glucose 200 mg/dL (80-110); HEMOLYSIS < 15 (0-50); Magnesium 1.7 mg/dL (1.6-2.3); Potassium 4.1 mmol/L (3.4-5.1); Sodium 137 mmol/L (137-145)
[2020-06-14] MEDS: LOSARTAN 50 MG TABLET 100 MG PO (08:48)
[2020-06-14] MEDS: METOPROLOL IR 50 MG TABLET 100 MG PO (08:48)
--- NOTE | 2020-06-14 09:00 | DI.US.S_ITS ---
PROCEDURE: US PERIPH VENOUS LOW EXTREM LT INDICATIONS: EDEMA TECHNIQUE: Real-time imaging, as well as color and pulse Doppler interrogation, were performed of the lower extremity deep veins from the inguinal ligament to the popliteal fossa. COMPARISON: None. FINDINGS: The common femoral, femoral and popliteal veins are normally compressible, and free of intraluminal thrombus. Color and pulse Doppler demonstrate normal phasic intraluminal flow. There is normal augmentation response to distal compression maneuver. Note is made of soft tissue edema at the level of the ankle. IMPRESSION: Negative for deep venous thrombosis. Dictated by: Juan Mcintyre M.D. on 06/14/2020 at 8:32 Approved by: Juan Mcintyre M.D. on 06/14/2020 at 8:32
--- NOTE | 2020-06-14 09:19 | PM.CN ---
History of Present Illness Consult details Date Patient Seen: 06/14/20 Time Patient Seen: 09:19 Chief complaint: GI Bleed Reason for consult: Upper GI bleed Requesting provider: Eyad Bustillos Narrative: Patient is a woman admitted with coffee-ground emesis and melena for the last day. She has been having upper abdominal discomfort for the last day as well. Prior to that nothing. She has had hysterectomy and treatment for breast cancer. Meds Home Medications and Allergies Home Medications Medication Instructions Recorded Confirmed Type calcium carbonate [Calci-Chew] 600 mg PO QDAY #0 05/21/17 06/14/20 History cholecalciferol (vitamin D3) 2,000 unit PO QDAY #0 06/20/17 06/14/20 History cyanocobalamin (vitamin B-12) 1,000 mcg PO DAILY 02/28/18 06/14/20 History [Vitamin B-12] vit C,Q-Ch-dquos-lutein-zeaxan 1 cap PO BID 02/28/18 06/14/20 History [PreserVision AREDS 2] pen needle, diabetic 31 gauge x #100 each 03/03/18 06/14/20 Rx 10/16 coenzyme Q10 100 mg capsule 200 mg PO DAILY 05/02/18 06/14/20 History glimepiride 2 mg tablet 4 mg PO QAM tab 08/27/18 06/14/20 History blood sugar diagnostic #200 each 04/20/19 06/14/20 Rx amlodipine 10 mg tablet 10 mg PO DAILY #90 tab 08/17/19 06/14/20 Rx escitalopram oxalate 10 mg tablet 10 mg PO QDAY #90 tab 08/17/19 06/14/20 Rx gabapentin 300 mg capsule 900 mg PO BEDTIME #270 cap 08/17/19 06/14/20 Rx losartan 100 mg tablet 100 mg PO DAILY #90 tab 08/17/19 06/14/20 Rx metoprolol tartrate 100 mg tablet 100 mg PO BID #180 tab 08/17/19 06/14/20 Rx atorvastatin 10 mg tablet 10 mg PO HS #30 tab 10/30/19 06/14/20 Rx metformin 500 mg tablet,extended 1,000 mg PO DAILY tab 01/29/20 06/14/20 History release 24 hr zolpidem 10 mg tablet 5 mg PO BEDTIME PRN #45 tab 02/25/20 06/14/20 Rx meclizine 25 mg PO TID PRN #12 tab 05/12/20 06/14/20 Rx ondansetron HCl [Zofran] 4 mg PO Q6H PRN #10 tab 05/12/20 06/14/20 Rx acarbose 10 mg PO TIDWM 06/14/20 06/14/20 History insulin glargine [Basaglar KwikPen 12 unit SUBCUT DAILY 06/14/20 06/14/20 History U-100 Insulin] sitagliptin [Januvia] 100 mg PO DAILY 06/14/20 06/14/20 History Allergies Allergy/AdvReac Type Severity Reaction Status Date / Time Anesthetics - Amide Type - Allergy Intermediate PROJECTILE Verified 06/13/20 09:53 Select A VOMITING [Anesthetics - Amide Type] Anesthetics - Keke Type- Allergy Intermediate PROJECTILE Verified 06/13/20 09:53 Parabens VOMITING [Anesthetics - Keke Type] Exam Vital Signs (past 8 hours): - 06/14/20 03:32 06/14/20 07:00 06/14/20 08:47 Temperature 98.6 F 99.3 F Pulse Rate 83 86 Pulse Rate [Orthostatic Lying] 85 Pulse Rate [Orthostatic Sitting] 93 H Pulse Rate [Orthostatic Standing] 106 H Respiratory Rate 18 16 Blood Pressure 141/61 H 115/59 L Blood Pressure [Orthostatic Lying] 144/67 H Blood Pressure [Orthostatic Sitting] 129/41 L Blood Pressure [Orthostatic Standing] 121/72 Pulse Oximetry 99 97 Oxygen Delivery Method Room Air Oxygen Flow Rate 0 Narrative Exam Narrative: Pleasant cooperative patient no apparent distress. Lungs are clear to auscultation. No rales or rhonchi. Heart regular rate and rhythm no murmur gallop. Abdomen is soft nontender without mass. No obvious hernias. Patient is alert and oriented x3. Objective Labs Result Diagrams: 06/14/20 05:46 06/14/20 05:46 Labs: Laboratory Results - last 24 hr 06/13/20 06/13/20 06/13/20 23:18 23:18 23:25 WBC 11.3 H RBC 3.56 L Hgb 10.1 L Hct 31.0 L MCV 87.3 MCH 28.5 MCHC 32.7 RDW 14.1 Plt Count 290 Neut % (Auto) 92.0 H Lymph % (Auto) 5.3 L [place] % (Auto) 1.8 L Eos % (Auto) 0.0 L Baso % (Auto) 0.9 Neut # (Auto) 37090 H Lymph # (Auto) 600 L [place] # (Auto) 200 Eos # (Auto) 0 Baso # (Auto) 100 PT INR APTT Sodium 135 L Potassium 5.0 Chloride 101 Carbon Dioxide 24 BUN 76 H Creatinine 1.25 H Estimated GFR 41.9 L BUN/Creatinine Ratio 60.8 H Glucose 325 H Hemoglobin A1c Lactate Calcium 8.9 Magnesium Total Bilirubin 0.5 AST 28 ALT 22 Alkaline Phosphatase 57 Total Protein 6.6 Albumin 3.9 Globulin 2.7 Albumin/Globulin Ratio 1.4 Lipase SARS-CoV-2 (PCR) Blood Type A Positive Antibody Screen Negative 06/13/20 06/13/20 06/13/20 23:25 23:25 23:25 WBC RBC Hgb Hct MCV MCH MCHC RDW Plt Count Neut % (Auto) Lymph % (Auto) [place] % (Auto) Eos % (Auto) Baso % (Auto) Neut # (Auto) Lymph # (Auto) [place] # (Auto) Eos # (Auto) Baso # (Auto) PT 12.8 H INR 1.1 APTT 23 L Sodium Potassium Chloride Carbon Dioxide BUN Creatinine Estimated GFR BUN/Creatinine Ratio Glucose Hemoglobin A1c Lactate 3.7 H Calcium Magnesium Total Bilirubin AST ALT Alkaline Phosphatase Total Protein Albumin Globulin Albumin/Globulin Ratio Lipase 254 SARS-CoV-2 (PCR) Blood Type Antibody Screen 06/14/20 06/14/20 06/14/20 01:11 01:11 01:11 WBC RBC Hgb 9.7 L Hct 29.2 L MCV MCH MCHC RDW Plt Count Neut % (Auto) Lymph % (Auto) [place] % (Auto) Eos % (Auto) Baso % (Auto) Neut # (Auto) Lymph # (Auto) [place] # (Auto) Eos # (Auto) Baso # (Auto) PT INR APTT Sodium Potassium Chloride Carbon Dioxide BUN Creatinine Estimated GFR BUN/Creatinine Ratio Glucose Hemoglobin A1c 8.0 H Lactate 2.8 H Calcium Magnesium Total Bilirubin AST ALT Alkaline Phosphatase Total Protein Albumin Globulin Albumin/Globulin Ratio Lipase SARS-CoV-2 (PCR) Blood Type Antibody Screen 06/14/20 06/14/20 06/14/20 02:12 05:46 05:46 WBC 10.8 RBC 3.11 L Hgb 8.9 L Hct 26.8 L MCV 86.0 MCH 28.8 MCHC 33.4 RDW 14.1 Plt Count 249 Neut % (Auto) 86.7 H Lymph % (Auto) 9.1 L [place] % (Auto) 3.7 Eos % (Auto) 0.0 L Baso % (Auto) 0.5 Neut # (Auto) 9400 H Lymph # (Auto) 1000 L [place] # (Auto) 400 Eos # (Auto) 0 Baso # (Auto) 100 PT INR APTT Sodium 137 Potassium 4.1 Chloride 104 Carbon Dioxide 27 BUN 67 H Creatinine 1.22 H Estimated GFR 43.1 L BUN/Creatinine Ratio 54.9 H Glucose 200 H D Hemoglobin A1c Lactate Calcium 8.7 Magnesium 1.7 Total Bilirubin AST ALT Alkaline Phosphatase Total Protein Albumin Globulin Albumin/Globulin Ratio Lipase SARS-CoV-2 (PCR) Negative Blood Type Antibody Screen Assessment & Plan Assessment & Plan narrative: Patient with an upper GI bleed. She cannot lay on her left side. As this is an acute process will ask Anesthesia to intubated to protect her airway. I have discussed this with the patient. Risks of bleeding and perforation discussed. She understands that 1 of my partners or I may be doing the procedure. All questions were answered. She wishes to proceed.
[2020-06-14] MEDS: LACTATED RINGERS 1,000 ML 42 ML IV (10:06)
--- NOTE | 2020-06-14 10:07 | SUR.HOLD ---
Pt brought down in wheel chair, seen by appropriate staff. Blood sugar 197, Dr. Manuel aware, no new orders, pt talked about wanting to have scopalamine patch ordered, after brief discussion with Dr. Manuel pt decided she did not wnat patch.
--- NOTE | 2020-06-14 10:56 | PM.OP.ENDO ---
Operative Date/Time/Diagnoses Date of procedure: 06/14/20 Time of procedure: 10:56 Pre-op diagnosis: GI bleed Post-op diagnosis: other (gastritis, pyloric mass) Procedure & Clinicians Study performed: Esophagoduodenoscopy Same procedure as scheduled: Yes Indications: 74F presented with coffee ground emesis and melena hemodynamically stable. Surgeon: Emeka Bridges Procedure Notes Procedure in detail: Patient placed supine on the table. Time out was performed. General anesthesia was induced they were intubated with an endotracheal tube. A bite block was placed. the scope was inserted into the mouth and advanced through the esophagus and into the stomach. The pylorus was intubated and the duodenum was normal to the 2nd portion. The scope was retroflexed within the stomach and there was a moderate sized hiatal hernia. 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 The stomach was notable for diffuse mild gastritis there was no active hemorrhage or distinct ulcer. Random gastric biopsies were taken with the forceps. The scope was withdrawn into the esophagus the Z line was seen at 35 cm from the incisions. There was no Urbano's esophagitis or masses or strictures. Stomach was desufflated and scope removed. Patient tolerated procedure well. Specimen(s): other (prepyloric mass, random gastric biopsies) Complications: none Impression: Gastritis, prepyloric submucosal mass Post-procedure Recommendations: Continue medication(s) (PPI) Plan for aftercare: Likely discharge home as no active hemorrhage Disposition: Acute Care
--- NOTE | 2020-06-14 11:19 | SUR.PHASEI ---
anesthesia notified of pt's blood sugar of 189, no orders received, ongoing monitoring.
[2020-06-14] MEDS: AMLODIPINE 5 MG TABLET 10 MG PO (12:11)
--- NOTE | 2020-06-14 15:05 | CM.DANOTE ---
DCP/Assessment: Reviewed chart. Patient is a 74yr old female admitted to [facility] with GI bleed. Primary payor is 1)Medicare 2)[facility]. PCP is Dr. Roy. Met with patient and spouse explained CM/SW role. Patient very pleasant, alert, oriented, resting comfortably in bed. Patient's spouse/Stu at bedside. Patient reports that she is completely I in all ADL's. Patient hopes to d/c home today or in AM. Patient does not anticipate any d/c planning needs. P: Home when stable. CM team continue to follow as needed. ZAHRAA Jacobsen Discharge Planning/Care Management CM Discharge Assessment Start: 06/14/20 15:03 Freq: Status: Active Protocol: Document 06/14/20 15:03 KJS (Rec: 06/14/20 15:05 KJS [id number]) Discharge Planning Assessment Assigned [employer]ending [employer] ZAHRAA Jacobsen Contact Information Stu Barth (spouse) ph# Advance Directives? Yes Advance Directives on File No History Provided By Patient,Significant Other, Medical Record Prior Living Arrangements House Household Members spouse Type of transporation used prior to Drives own vehicle admit Independent with ADL's Yes Is patient alert and oriented? Yes Caregiver for Another No Barriers to Discharge No Discharge Plan Home Transportation Arrangement Spouse to provide transport. Referrals Initiated None needed Whiteboard Updated in Patient Room with Yes name and ext. # of [employer]ending [employer]per Review Status In Process Next Review Type Continued Stay Review
[2020-06-14] MEDS: ACETAMINOPHEN 325 MG TABLET 650 MG PO (15:38)
--- NOTE | 2020-06-14 16:31 | PC.NURSE ---
1545: a&OX4. 96%RA. denies any dizziness, nausea, sob, or chest pain. denies any abd pain. pt reports sore throat, medicated with tylenol. discharge instructions and paper work given to patient. pt will eat dinner first before she discharge.
--- NOTE | 2020-06-14 19:59 | PM.DS.1 ---
History of Present Illness History of Present Illness Chief complaint: GI Bleed Narrative: Lois Barakat is a pleasant 74 y.o. female with a history of left sided breast cancer, lymphedema of the left arm, chronic kidney disease, diabetes type 2, hypertension and hyperlipidemia presented to the ED around dinner time on 06/13 after having hematemesis, and melana. She had a small breakfast, followed by a small lunch when she developed diarrhea. By late afternoon, she began throwing up blood and had dark tarry stool. She felt hot and cold but did not have a fever. She denies abdominal cramping but has generalized aching across her lower abdomen. She is not taking any blood thinners, nor has started any new medications. She recently had a cortisone injection in her left shoulder. CT of the abdomen and pelvis was reported by the ED provider to be Possible cystitis, partially visualized left chest wall suspected abscess. Diverticulosis without evidence of acute diverticulitis patient is afebrile, blood pressure 141/61, heart rate 83, respiratory rate 18, oxygen saturation 99% on room air, she weighs 82 kg with a BMI of 33. She has a mildly elevated WBC at 11.3 likely the cortisone injection may contribute to this, RBC 3.56, hemoglobin 9.7, hematocrit 29.2, platelet count 290, she does have a left shift, sodium was 135, potassium 5.0, chloride 101, CO2 24, creatinine 1.25, BUN 76, GFR is 41.9, glucose 325, hemoglobin A1c is 8.0, lactate 2.8 down from 3.7 after hydration, liver enzymes were within normal limits, and COVID-19 PCR was negative. Discharge Providers Provider Date of admission: 06/14/20 02:25 Discharge Date: 06/14/20 Primary care physician: Sylvie Roy DO Consults: 06/14/20 02:23 Consult to General Surgery Stat Comment: Consulting Provider: Jono Monzon Reason for consultation: GI bleed Has provider been notified: Yes 06/14/20 02:45 Consult to General Surgery Routine Comment: Consulting Provider: Jono Monzon Reason for consultation: UGIB Has provider been notified: Yes Discharge provider: Quang Burgess MD Summary Hospital Course Discharge Diagnosis: 1. Acute blood loss anemia 2. Diffuse gastritis without active hemorrhage on EGD 3. Hiatal hernia 4. 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 Type 2 diabetes Patient was admitted for acute blood loss anemia from GI bleed presenting with melena. Hemoglobin drop from 10.1 down to 8.9 but she did not require transfusion and remained hemodynamically stable. EGD done by Dr. Bridges showed diffuse mild gastritis without active hemorrhage, also a hiatal hernia, and a gastric pre-pyloric mass which appeared to be lipomatous. Multiple biopsies were obtained of the mass. Patient will follow-up with [facility] on the pathology. She is instructed to stop aspirin and NSAIDs and take pantoprazole for 2 months to ensure healing of the gastritis. Exam Vital Signs (past 8 hours): - 06/14/20 13:30 06/14/20 16:00 06/14/20 16:53 Temperature 98.6 F 99.3 F Pulse Rate 73 77 Pulse Rate [Orthostatic Lying] 77 Pulse Rate [Orthostatic Sitting] 87 Pulse Rate [Orthostatic Standing] 89 Respiratory Rate 17 17 Blood Pressure 106/47 L 105/52 L Blood Pressure [Orthostatic Lying] 105/52 L Blood Pressure [Orthostatic Sitting] 133/58 L Blood Pressure [Orthostatic Standing] 115/59 L Pulse Oximetry 96 96 Oxygen Delivery Method Nasal Cannula Oxygen Flow Rate 0 Objective Labs Result Diagrams: 06/14/20 05:46 06/14/20 05:46 Labs: Laboratory Results - last 24 hr 06/13/20 06/13/20 06/13/20 23:18 23:18 23:25 WBC 11.3 H RBC 3.56 L Hgb 10.1 L Hct 31.0 L MCV 87.3 MCH 28.5 MCHC 32.7 RDW 14.1 Plt Count 290 Neut % (Auto) 92.0 H Lymph % (Auto) 5.3 L [place] % (Auto) 1.8 L Eos % (Auto) 0.0 L Baso % (Auto) 0.9 Neut # (Auto) 22342 H Lymph # (Auto) 600 L [place] # (Auto) 200 Eos # (Auto) 0 Baso # (Auto) 100 PT INR APTT Sodium 135 L Potassium 5.0 Chloride 101 Carbon Dioxide 24 BUN 76 H Creatinine 1.25 H Estimated GFR 41.9 L BUN/Creatinine Ratio 60.8 H Glucose 325 H Hemoglobin A1c Lactate Calcium 8.9 Magnesium Total Bilirubin 0.5 AST 28 ALT 22 Alkaline Phosphatase 57 Total Protein 6.6 Albumin 3.9 Globulin 2.7 Albumin/Globulin Ratio 1.4 Lipase SARS-CoV-2 (PCR) Blood Type A Positive Antibody Screen Negative 06/13/20 06/13/20 06/13/20 23:25 23:25 23:25 WBC RBC Hgb Hct MCV MCH MCHC RDW Plt Count Neut % (Auto) Lymph % (Auto) [place] % (Auto) Eos % (Auto) Baso % (Auto) Neut # (Auto) Lymph # (Auto) [place] # (Auto) Eos # (Auto) Baso # (Auto) PT 12.8 H INR 1.1 APTT 23 L Sodium Potassium Chloride Carbon Dioxide BUN Creatinine Estimated GFR BUN/Creatinine Ratio Glucose Hemoglobin A1c Lactate 3.7 H Calcium Magnesium Total Bilirubin AST ALT Alkaline Phosphatase Total Protein Albumin Globulin Albumin/Globulin Ratio Lipase 254 SARS-CoV-2 (PCR) Blood Type Antibody Screen 06/14/20 06/14/20 06/14/20 01:11 01:11 01:11 WBC RBC Hgb 9.7 L Hct 29.2 L MCV MCH MCHC RDW Plt Count Neut % (Auto) Lymph % (Auto) [place] % (Auto) Eos % (Auto) Baso % (Auto) Neut # (Auto) Lymph # (Auto) [place] # (Auto) Eos # (Auto) Baso # (Auto) PT INR APTT Sodium Potassium Chloride Carbon Dioxide BUN Creatinine Estimated GFR BUN/Creatinine Ratio Glucose Hemoglobin A1c 8.0 H Lactate 2.8 H Calcium Magnesium Total Bilirubin AST ALT Alkaline Phosphatase Total Protein Albumin Globulin Albumin/Globulin Ratio Lipase SARS-CoV-2 (PCR) Blood Type Antibody Screen 06/14/20 06/14/20 06/14/20 02:12 05:46 05:46 WBC 10.8 RBC 3.11 L Hgb 8.9 L Hct 26.8 L MCV 86.0 MCH 28.8 MCHC 33.4 RDW 14.1 Plt Count 249 Neut % (Auto) 86.7 H Lymph % (Auto) 9.1 L [place] % (Auto) 3.7 Eos % (Auto) 0.0 L Baso % (Auto) 0.5 Neut # (Auto) 9400 H Lymph # (Auto) 1000 L [place] # (Auto) 400 Eos # (Auto) 0 Baso # (Auto) 100 PT INR APTT Sodium 137 Potassium 4.1 Chloride 104 Carbon Dioxide 27 BUN 67 H Creatinine 1.22 H Estimated GFR 43.1 L BUN/Creatinine Ratio 54.9 H Glucose 200 H D Hemoglobin A1c Lactate Calcium 8.7 Magnesium 1.7 Total Bilirubin AST ALT Alkaline Phosphatase Total Protein Albumin Globulin Albumin/Globulin Ratio Lipase SARS-CoV-2 (PCR) Negative Blood Type Antibody Screen [facility] Medical History Anxiety Breast cancer (1992) Breast cancer, left breast (2016) Cataract (2010) Chicken pox Diabetes mellitus (~1987) Fractures GERD (gastroesophageal reflux disease) Hayfever (~1959) History of recurrent ear infection Hyperlipidemia (~1997) Hyperparathyroidism (2013) Hypertension (~1997) Impingement syndrome of right shoulder Lumbar spine pain Measles Osteopenia Osteoporosis Ribs, multiple fractures Right arm pain Shoulder pain (2014) Sternal fracture (2014) Urinary incontinence (2012) Vertigo (2011) Surgical History Anesthesia complication H/O lumpectomy H/O mastectomy History of fusion of cervical spine (2011) History of knee replacement (2006) History of lumbar spinal fusion (2009) History of lumbar spinal fusion Family History Father Hypertension High cholesterol Pneumonia Mother Hypertension Mental health problem Stroke History of hip surgery Grandfather Heart disease Hypertension High cholesterol Grandmother Hypertension High cholesterol Social History marital status: household members: spouse occupational status: other Smoking Status: Never smoker alcohol intake: current substance use type: does not use Discharge Plan Discharge Plan Patient Disposition: Home Provider Discharge Comment: Your EGD showed inflammation of the stomach lining which is likely due to aspirin and use of anti-inflammatory pain reliever. You also have a hiatal hernia and Dr Bridges noted a mass which looks like a lipoma (fatty cyst). He took multiple biopsies of this mass to make sure it is something benign. Please contact [facility] next week to get biopsy results. Stop aspirin and NSAIDs (including diclofenac). Take pantoprazole for 2 months to heal the stomach lining. You may take Tylenol as needed. Discharge orders & Medications Prescriptions: New pantoprazole 40 mg tablet,delayed release (DR/EC) 40 mg PO DAILY Qty: 30 RF: 1 Continued (DME) Blood Glucose Test Strip See Rx Instructions .ROUTE .MEDSUPPLY Qty: 200 RF: 11 calcium carbonate [Calci-Chew] 500 MG tablet,chewable 600 mg PO QDAY Qty: 0 RF: 0 cholecalciferol (vitamin D3) 5,000 UNIT capsule 2,000 unit PO QDAY Qty: 0 RF: 0 (DME) pen needle, diabetic [1st Tier Unifine Pentips] 31 gauge x 5/16 needle See Dose Instructions .ROUTE .MEDSUPPLY Qty: 100 RF: 11 amlodipine 10 mg tablet 10 mg PO DAILY Qty: 90 RF: 3 metoprolol tartrate [Lopressor] 100 mg tablet 100 mg PO BID Qty: 180 RF: 3 gabapentin 300 mg capsule 900 mg PO BEDTIME Qty: 270 RF: 3 losartan 100 mg tablet 100 mg PO DAILY Qty: 90 RF: 3 escitalopram oxalate [Lexapro] 10 mg tablet 10 mg PO QDAY Qty: 90 RF: 3 Hold Instructions: med change atorvastatin [Lipitor] 10 mg tablet 10 mg PO HS Qty: 30 RF: 0 zolpidem 10 mg tablet 5 mg PO BEDTIME PRN (Reason: sleep) Qty: 45 RF: 0 metformin 500 mg tablet extended release 24 hr 1,000 mg PO DAILY RF: 0 coenzyme Q10 [CoQ-10] 100 mg capsule 200 mg PO DAILY RF: 0 glimepiride 2 mg tablet 4 mg PO QAM RF: 0 ondansetron HCl [Zofran] 4 mg tablet 4 mg PO Q6H PRN (Reason: nausea and vomiting) Qty: 10 RF: 0 meclizine 25 mg tablet 25 mg PO TID PRN (Reason: dizziness) Qty: 12 RF: 0 cyanocobalamin (vitamin B-12) [Vitamin B-12] 1,000 mcg Tablet 1,000 mcg PO DAILY RF: 0 PreserVision AREDS-2 [id number] kg-opmq-xx-mg Capsule 1 cap PO BID RF: 0 Basaglar KwikPen U-100 Insulin 100 unit/mL (3 mL) Insulin Pen 12 unit SUBCUT DAILY RF: 0 Januvia 50 mg Tablet 100 mg PO DAILY RF: 0 acarbose 25 mg Tablet 10 mg PO TIDWM RF: 0 Follow up/Referrals: Emeka Bridges MD [Physician] - 1 Week Sylvie Roy DO [Primary Care Provider] - Diet/Activity/Treatments Diet: Diet as Tolerated Visit Report/Discharge Packet Instructions: Upper GI Endoscopy, DI for Gastritis Stand Alone Forms: EGD Result: [facility] Discharge Data Primary Care Provider: Sylvie Roy
--- NOTE | 2020-06-23 13:20 | PC.NURSE ---
Late Entry; LR infusion initiated 06/14 at 10:06, stop per MD order at 15:14.
== END 2020-06-14 17:35 | disposition home or self-care (01) ==
LOC: ED 06-14 02:25 → AC 06-14 07:57
PROVIDERS: Surgery; Admitting Provider Nurse Practitioner Family; Emergency Provider Emergency Medicine; PCP Family Medicine; Visit Provider Nurse Practitioner Family
PROC: 0DJ08ZZ Inspection of Upper Intestinal Tract, Via Natural or Artificial Opening Endoscopic (ICD-10-PCS; CPT 43235; principal; 2020-06-14 10:00)
DX: K29.71 Gastritis, unspecified, with bleeding (principal); D62 Acute posthemorrhagic anemia; N18.30 Chronic kidney disease, stage 3 unspecified; K31.7 Polyp of stomach and duodenum; K44.9 Diaphragmatic hernia without obstruction or gangrene; E11.9 Type 2 diabetes mellitus without complications; Z79.4 Long term (current) use of insulin; G47.33 Obstructive sleep apnea (adult) (pediatric); I10 Essential (primary) hypertension; Z20.822 Contact with and (suspected) exposure to COVID-19
CPT/HCPCS: 43239; 36415; 74177; 80048; 80053; 82962; 83036; 83605; 83690; 83735; 85014; 85018; 85025; 85610; 85730; 86850; 86900; 86901; 87635; 93971; 96361; 96365; 96366; 96372; 96375; 99218; 99284; C9803; G0378; C9113; J0330; J1100; J2405; J2704; Q9967

== ENCOUNTER → 2020-07-07 12:33 | Outpatient (CLI) | payer MEDICARE, OTHER, SELFPAY ==
[2020-06-16 13:58] VITALS: BMI 33.1
[2020-07-07 12:45] LABS: Bacteria Urine None Seen; RBC Urine None Seen (0-5/HPF); WBC Urine None Seen (0-5/HPF)
[2020-07-07 13:19] LABS: Add Manual Diff / Slide Review NO; Basophils Absolute Auto 100 /uL (0-100); Eosinophils Absolute Auto 200 /uL (0-450); Eosinophils Percent Auto 3.1 % (2-4); Hematocrit 29.6 % (36-46); Hemoglobin 9.9 g/dL (12.0-16.0); Lymphocytes Absolute Auto 900 /uL (1100-4500); Lymphocytes Percent Auto 14.7 % (25-40); Mean Corpuscular HGB Conc 33.4 % (30-36); Mean Corpuscular Volume 86.8 fL (80-100); Monocytes Absolute Auto 500 /uL (0-900); Monocytes Percent Auto 8.3 % (3-14); Neutrophils Absolute Auto 4600 /uL (1500-7000); Neutrophils Percent Auto 72.9 % (50-75); Platelet Count 316 X10^3/uL (150-400); Red Blood Cell Count 3.41 X10^6/uL (4.0-5.2); Red Cell Distribution Width 14.5 % (11.6-14.8); White Blood Cell Count 6.3 X10^3/uL (4.5-11.0)
[2020-07-07 13:22] LABS: Appearance Urine UA CLEAR; Bilirubin Urine UA NEGATIVE (NEGATIVE); Color Urine UA YELLOW; Glucose Urine UA NEGATIVE (Negative); Ketones Urine UA NEGATIVE (NEGATIVE); Leukocyte Esterase Urine UA NEGATIVE (NEGATIVE); Nitrite Urine UA NEGATIVE (Negative); Occult Blood Urine UA NEGATIVE (Negative); Protein Urine UA NEGATIVE (Negative); Urobilinogen Urine UA 0.2 E.U./dL (0.2)
[2020-07-07 13:28] LABS: Culture Indicated Urine Cult Not Indicated
[2020-07-07 13:32] LABS: Alanine Aminotransferase 17 IU/L (<35); Albumin 3.9 g/dL (3.5-5.0); Albumin Globulin Ratio 1.3 (1.0-2.8); Alkaline Phosphatase 78 U/L (38-126); Aspartate Aminotransferase 22 IU/L (14-36); BUN Creatinine Ratio 17.1 (6-22); Bilirubin Total 0.3 mg/dL (0.2-1.3); Blood Urea Nitrogen 19 mg/dL (7-17); Carbon Dioxide 30 mmol/L (22-32); Chloride 101 mmol/L (98-107); Glucose 144 mg/dL (80-110); HEMOLYSIS < 15 (0-50); Potassium 3.7 mmol/L (3.4-5.1); Sodium 136 mmol/L (137-145); Total Protein 6.9 g/dL (6.3-8.2)
== END ==
PROVIDERS: PCP Family Medicine; Referring Provider Family Medicine; Visit Provider Family Medicine
DX: K92.2 Gastrointestinal hemorrhage, unspecified (principal); N18.9 Chronic kidney disease, unspecified; N39.0 Urinary tract infection, site not specified
CPT/HCPCS: 36415; 80053; 81001; 85025

== ENCOUNTER → 2020-09-01 10:31 | Outpatient (CLI) | payer MEDICARE, OTHER, SELFPAY ==
[2020-06-16 13:58] VITALS: BMI 33.1
[2020-09-01 11:25] LABS: Add Manual Diff / Slide Review NO; Basophils Absolute Auto 100 /uL (0-100); Basophils Percent Auto 0.9 % (0-2); Eosinophils Absolute Auto 100 /uL (0-450); Eosinophils Percent Auto 2.1 % (2-4); Hematocrit 38.2 % (36-46); Hemoglobin 12.3 g/dL (12.0-16.0); Lymphocytes Absolute Auto 800 /uL (1100-4500); Lymphocytes Percent Auto 13.1 % (25-40); Mean Corpuscular HGB Conc 32.3 % (30-36); Mean Corpuscular Hemoglobin 27.3 PG (26-34); Mean Corpuscular Volume 84.6 fL (80-100); Monocytes Absolute Auto 700 /uL (0-900); Monocytes Percent Auto 11.5 % (3-14); Neutrophils Absolute Auto 4200 /uL (1500-7000); Neutrophils Percent Auto 72.4 % (50-75); Platelet Count 280 X10^3/uL (150-400); Red Blood Cell Count 4.52 X10^6/uL (4.0-5.2); Red Cell Distribution Width 15.4 % (11.6-14.8); White Blood Cell Count 5.8 X10^3/uL (4.5-11.0)
[2020-09-01 11:39] LABS: BUN Creatinine Ratio 21.3 (6-22); Blood Urea Nitrogen 23 mg/dL (7-17); Calcium 9.5 mg/dL (8.4-10.2); Carbon Dioxide 30 mmol/L (22-32); Chloride 100 mmol/L (98-107); Estimated Glomerular Filt Rate 49.6 mL/min (>60); Glucose 251 mg/dL (80-110); HEMOLYSIS < 15 (0-50); Potassium 3.9 mmol/L (3.4-5.1); Sodium 138 mmol/L (137-145)
[2020-09-02 14:46] LABS: Hemoglobin A1C% w Est Avg Glu 7.8 % (4.0-6.0)
== END ==
PROVIDERS: PCP Family Medicine; Referring Provider Family Medicine; Visit Provider Family Medicine
DX: E11.9 Type 2 diabetes mellitus without complications (principal); I10 Essential (primary) hypertension; Z79.4 Long term (current) use of insulin
CPT/HCPCS: 36415; 80048; 83036; 85025

== ENCOUNTER → 2020-09-29 11:05 | Outpatient (CLI) | payer MEDICARE, OTHER, SELFPAY ==
[2020-06-16 13:58] VITALS: BMI 33.1
--- NOTE | 2020-09-29 11:06 | DI.RAD.S_ITS ---
PROCEDURE: XR CHEST 2V INDICATIONS: new edema, SOB TECHNIQUE: 2 views of the chest were acquired. COMPARISON: [facility], CT, CT CHEST WO CON, 10/14/2019, 13:40. [facility], CR, XR CHEST 2V, 02/28/2018, 12:20. FINDINGS: Surgical changes and devices: Left mastectomy. Lungs and pleura: Lungs are clear. No pleural effusions or pneumothorax. Mediastinum: Mediastinal contours are normal. Heart size is normal. Bones and chest wall: No suspicious bony abnormalities. Soft tissues appear unremarkable. IMPRESSION: No acute cardiopulmonary disease. Dictated by: Cole Lam M.D. on 09/29/2020 at 11:34 Approved by: Cole Lam M.D. on 09/29/2020 at 11:35
[2020-09-29 12:00] LABS: Add Manual Diff / Slide Review NO; Basophils Absolute Auto 100 /uL (0-100); Basophils Percent Auto 1.3 % (0-2); Eosinophils Absolute Auto 200 /uL (0-450); Eosinophils Percent Auto 2.8 % (2-4); Hematocrit 35.8 % (36-46); Hemoglobin 11.6 g/dL (12.0-16.0); Lymphocytes Absolute Auto 1200 /uL (1100-4500); Lymphocytes Percent Auto 17.2 % (25-40); Mean Corpuscular HGB Conc 32.5 % (30-36); Mean Corpuscular Hemoglobin 27.3 PG (26-34); Mean Corpuscular Volume 83.9 fL (80-100); Monocytes Absolute Auto 700 /uL (0-900); Monocytes Percent Auto 10.7 % (3-14); Neutrophils Absolute Auto 4800 /uL (1500-7000); Platelet Count 260 X10^3/uL (150-400); Red Blood Cell Count 4.27 X10^6/uL (4.0-5.2); Red Cell Distribution Width 15.4 % (11.6-14.8)
[2020-09-29 12:18] LABS: HEMOLYSIS < 15 (0-50); NT-proBNP (BNP-Adult 18+) 516 pg/mL (<125)
[2020-09-29 12:20] LABS: Alanine Aminotransferase 17 IU/L (<35); Albumin Globulin Ratio 1.5 (1.0-2.8); Alkaline Phosphatase 73 U/L (38-126); Aspartate Aminotransferase 20 IU/L (14-36); BUN Creatinine Ratio 22.2 (6-22); Bilirubin Total 0.2 mg/dL (0.2-1.3); Blood Urea Nitrogen 24 mg/dL (7-17); Calcium 9.3 mg/dL (8.4-10.2); Carbon Dioxide 28 mmol/L (22-32); Chloride 105 mmol/L (98-107); Estimated Glomerular Filt Rate 49.6 mL/min (>60); Globulin 2.7 g/dL (1.7-4.1); Glucose 180 mg/dL (80-110); Sodium 138 mmol/L (137-145); Total Protein 6.7 g/dL (6.3-8.2)
== END ==
PROVIDERS: PCP Family Medicine; Referring Provider Family Medicine; Visit Provider Family Medicine
DX: R06.02 Shortness of breath (principal); R60.0 Localized edema
CPT/HCPCS: 36415; 71046; 80053; 83880; 85025

== ENCOUNTER 2020-10-21 17:51 | Emergency (ER) | payer MEDICARE, OTHER, SELFPAY ==
[2020-06-16 13:58] VITALS: BMI 33.1
[2020-10-21 18:01] VITALS: BP 187/88; PULSE 63; RESP 12; TEMP 36.6; O2SAT 100; BMI 33.6
--- NOTE | 2020-10-21 18:10 | DI.US.S_ITS ---
PROCEDURE: US [facility] VENOUS LOW EXTREM LT INDICATIONS: lower extrem pain TECHNIQUE: Real-time imaging, as well as color and pulse Doppler interrogation, were performed of the lower extremity deep veins from the inguinal ligament to the popliteal fossa. COMPARISON: [facility], , [facility] VENOUS LOW EXTREM LT, 06/14/2020, 9:13. FINDINGS: The common femoral, femoral and popliteal veins are normally compressible, and free of intraluminal thrombus. Color and pulse Doppler demonstrate normal phasic intraluminal flow. There is normal augmentation response to distal compression maneuver. IMPRESSION: Negative left lower extremity duplex venous ultrasound for DVT. Dictated by: William De La Cruz M.D. on 10/21/2020 at 18:45 Approved by: William De La Cruz M.D. on 10/21/2020 at 18:48
--- NOTE | 2020-10-21 19:53 | ED.EXTPRO ---
HPI - Extremity Problem <Linda PhelpsKEVP-BC - Last Filed: 10/21/20 20:30> General Chief complaint: Extremity Problem,Nontraumatic Stated complaint: EXTREME PAIN LEFT LEG Time Seen by Provider: 10/21/20 19:39 Source: patient and family Mode of arrival: Wheelchair Limitations: no limitations History of Present Illness HPI Narrative: The patient is a delightful 74-year-old female nonsmoker who presents her for a chief complaint for sudden left leg pain during along today. She states it started in her calf and extended up her leg. Her normal gabapentin did not help the pain and she did not take anything else. She denies any chest pain or shortness of breath. She is primarily concerned about a blood clot. She and her state that she has been returning to her normal activity, so has been slightly increased. She states her circulation is good through her leg. Denies any history of blood clots. Denies any recent immobility. Related Data Home Medications Medication Instructions Recorded Confirmed calcium carbonate [Calci-Chew] 600 mg PO QDAY #0 05/21/17 06/14/20 PreserVision AREDS-2 1 cap PO BID 02/28/18 06/14/20 glimepiride 2 mg tablet 4 mg PO QAM tab 08/27/18 06/14/20 metformin 500 mg tablet,extended 1,000 mg PO DAILY tab 01/29/20 06/14/20 release 24 hr Basaglar KwikPen U-100 Insulin 12 unit SUBCUT DAILY 06/14/20 06/14/20 Januvia 100 mg PO DAILY 06/14/20 06/14/20 cholecalciferol (vitamin D3) 125 5,000 unit PO QDAY #0 cap 09/29/20 09/29/20 mcg (5,000 unit) capsule coenzyme Q10 100 mg capsule 300 mg PO DAILY cap 09/29/20 09/29/20 Previous Rx's Medication Instructions Recorded pen needle, diabetic 31 gauge x #100 each 03/03/1810/16 blood sugar diagnostic #200 each 04/20/19 gabapentin 300 mg capsule 900 mg PO BEDTIME #270 cap 08/17/19 losartan 100 mg tablet 100 mg PO DAILY #90 tab 08/17/19 atorvastatin 10 mg tablet 10 mg PO HS #30 tab 10/30/19 zolpidem 10 mg tablet 5 mg PO BEDTIME PRN #45 tab 07/07/20 amlodipine 10 mg tablet 10 mg PO DAILY #90 tab 07/29/20 metoprolol tartrate 100 mg tablet 100 mg PO BID #180 tab 07/29/20 escitalopram oxalate 10 mg tablet 10 mg PO QDAY #90 tab 08/23/20 lidocaine 1 patch TOPICAL DAILY PRN #15 ea 10/21/20 methocarbamol 750 mg PO TID PRN #14 tab 10/21/20 Allergies Allergy/AdvReac Type Severity Reaction Status Date / Time Anesthetics - Amide Type - Allergy Intermediate PROJECTILE Verified 10/21/20 18:08 Select A VOMITING [Anesthetics - Amide Type] Anesthetics - Keke Type- Allergy Intermediate PROJECTILE Verified 10/21/20 18:08 Parabens VOMITING [Anesthetics - Keke Type] Review of Systems <SALOME Rueda - Last Filed: 10/21/20 20:30> Review of Systems Narrative: GENERAL: Denies chills, fatigue, malaise, fever, sweats. HEENT: Denies sinus pain, ear pain, sore throat, difficulty swallowing, dizziness. RESPIRATORY: Denies dyspnea, cough, wheezing, hemoptysis, sputum. CARDIOVASCULAR: Denies chest pain, palpitations, orthopnea, edema, GASTROINTESTINAL: Denies nausea, vomiting, abdominal pain, diarrhea, constipation, melena. : Denies dysuria, frequency, incontinence, hematuria, urinary retention. MUSCULOSKELETAL: See HPI SKIN: Denies rash, skin lesions, or other NEUROLOGIC: Denies weakness, headache, numbness, change in speech, confusion, seizures, incoordination. PSYCHIATRIC: No concerning psychosocial issues. 12 point review of systems is negative except for those stated above Patient History <SALOME Rueda - Last Filed: 10/21/20 20:30> Medical History Acute upper GI bleed Anxiety Breast cancer (1992) Breast cancer, left breast (2016) Cataract (2010) Chicken pox Diabetes mellitus (~1987) Fractures GERD (gastroesophageal reflux disease) Hayfever (~1959) History of recurrent ear infection Hyperlipidemia (~1997) Hyperparathyroidism (2013) Hypertension (~1997) Impingement syndrome of right shoulder Lumbar spine pain Measles Osteopenia Osteoporosis Ribs, multiple fractures Shoulder pain (2015) Sternal fracture (2015) Urinary incontinence (2013) Vertigo (2012) Surgical History Anesthesia complication H/O lumpectomy H/O mastectomy History of fusion of cervical spine (2011) History of knee replacement (2006) History of lumbar spinal fusion (2009) History of lumbar spinal fusion Family History Father Hypertension High cholesterol Pneumonia Mother Hypertension Mental health problem Stroke History of hip surgery Grandfather Heart disease Hypertension High cholesterol Grandmother Hypertension High cholesterol Social History marital status: household members: spouse occupational status: other Smoking Status: Never smoker alcohol intake: current substance use type: does not use Smoking Status: Never smoker alcohol intake frequency: holidays/special occasions only Substance Use Type: does not use Exam <SALOME Rueda - Last Filed: 10/21/20 20:30> Narrative Exam Narrative: GENERAL: This is a well-nourished, well-developed patient, in no acute distress HEAD: Atraumatic. Normocephalic. No temporal or scalp tenderness. EYES: Pupils equal round and reactive. Extraocular motions intact. No scleral icterus. No injection or drainage. ENT: Nose without bleeding, purulent drainage or septal hematoma. Wearing a mask Airway patent. NECK: Trachea midline. No JVD or lymphadenopathy. Supple, nontender, no meningeal signs. CARDIOVASCULAR: Regular rate and rhythm RESPIRATORY: No cough. No increased respiratory effort. No accessory muscle use. EXTREMITIES: Positive pedal pulses noted left leg. Trace edema bilateral lower extremities. Able to lift left leg off of stretcher. No visible erythema or unilateral swelling noted. Able to then left knee with pain. Generalized pain to palpation noted left quadriceps, left knee, left hamstring negative alphonso test BACK: Nontender without deformity or crepitance. No flank tenderness. NEURO: AOx3. SKIN: No rash or erythema. Initial Vital Signs Initial Vital Signs: Vital Signs Temperature 97.9 F 10/21/20 18:01 Pulse Rate 63 10/21/20 18:01 Respiratory Rate 12 10/21/20 18:01 Blood Pressure 187/88 H 10/21/20 18:01 Pulse Oximetry 100 10/21/20 18:01 <Mick Giordano DO - Last Filed: 10/22/20 05:57> Initial Vital Signs Initial Vital Signs: Vital Signs Temperature 97.9 F 10/21/20 18:01 Pulse Rate 63 10/21/20 18:01 Respiratory Rate 12 10/21/20 18:01 Blood Pressure 187/88 H 10/21/20 18:01 Pulse Oximetry 100 10/21/20 18:01 Scores <SALOME Rueda - Last Filed: 10/21/20 20:30> GCS Sumrall coma scale eye opening: Spontaneous Scar coma scale verbal response: Orientated Scar coma scale motor response: Obey commands Scar coma scale total score: 15 Course <SALOME Rueda - Last Filed: 10/21/20 20:30> Orders Ordered: Discontinued Medications Acetaminophen (Acetaminophen 325 Mg Tablet) 650 mg PO NOW ONE Stop: 10/21/20 19:53 Last Admin: 10/21/20 20:02 Dose: 650 mg Documented by: [email or web address] Lidocaine (Lidocaine Patch 1 Each Adh..Patch) 1 each TOP NOW ONE Stop: 10/21/20 19:53 Last Admin: 10/21/20 20:02 Dose: 1 each Documented by: [email or web address] Methocarbamol (Methocarbamol 500 Mg Tablet) 750 mg PO NOW ONE Stop: 10/21/20 19:53 Last Admin: 10/21/20 20:21 Dose: 750 mg Documented by: CTRALLISON Vital Signs Vital signs: Vital Signs - 8 hr 10/21/20 18:01 Temperature 97.9 F Pulse Rate 63 Respiratory Rate 12 Blood Pressure 187/88 H Pulse Oximetry 100 <Mick Giordano DO - Last Filed: 10/22/20 05:57> Orders Ordered: Discontinued Medications Acetaminophen (Acetaminophen 325 Mg Tablet) 650 mg PO NOW ONE Stop: 10/21/20 19:53 Last Admin: 10/21/20 20:02 Dose: 650 mg Documented by: [email or web address] Lidocaine (Lidocaine Patch 1 Each Adh..Patch) 1 each TOP NOW ONE Stop: 10/21/20 19:53 Last Admin: 10/21/20 20:02 Dose: 1 each Documented by: [email or web address] Methocarbamol (Methocarbamol 500 Mg Tablet) 750 mg PO NOW ONE Stop: 10/21/20 19:53 Last Admin: 10/21/20 20:21 Dose: 750 mg Documented by: ZHANNA Vital Signs Vital signs: Vital Signs - 8 hr 10/21/20 18:01 Temperature 97.9 F Pulse Rate 63 Respiratory Rate 12 Blood Pressure 187/88 H Pulse Oximetry 100 MDM - Extremity (Nontraumatic) <SALOME Rueda - Last Filed: 10/21/20 20:30> Imaging Data US - DVT: Radiologist's Impression: [address] [place] [id number] ReportSigned Patient: Lois Barakat CMR#: [id number]: 6Acct:[id number]/Sex: 74 / FDate of Service: 10/21/20Loc: EDAccession Number: [id number] Procedure: [facility] venous low extrem lt Ordering Provider: America Duncan D.O. PROCEDURE: [facility] VENOUS LOW EXTREM LT INDICATIONS: lower extrem pain TECHNIQUE: Real-time imaging, as well as color and pulse Doppler interrogation, were performed of the lower extremity deep veins from the inguinal ligament to the popliteal fossa. COMPARISON: [facility], PERIP VENOUS LOW EXTREM LT, 06/14/2020, 9:13. FINDINGS: The common femoral, femoral and popliteal veins are normally compressible, and free of intraluminal thrombus. Color and pulse Doppler demonstrate normal phasic intraluminal flow. There is normal augmentation response to distal compression maneuver. IMPRESSION: Negative left lower extremity duplex venous ultrasound for DVT. Dictated by: William De La Cruz M.D. on 10/21/2020 at 18:45 Approved by: William De La Cruz M.D. on 10/21/2020 at 18:48 [facility] Narrative Medical decision making narrative: The patient is a delightful 74-year-old female who presents with a chief complaint of left leg pain, primary concern for blood clot. Ultrasound rules out DVT. We elected to do a trial of conservative measures including [id number] medications, small trial of Robaxin lidocaine patches as well as primary care follow-up. The patient is returning to baseline activity, so her states she is walking more. Raises suspicion of musculoskeletal pain. No falls or trauma that would indicate need for x-ray. Discussed that they come back to the ER for any acute concerns. Patient has been have no questions or concerns upon discharge states understanding return precautions as well as follow-up care. Discharge Plan Departure Patient Disposition: Home Clinical Impression: Acute leg pain Qualifiers: Laterality: left Qualified Code(s): M79.605 - Pain in left leg Instructions: How To Perform RICE (Rest, Ice, Compress, Elevate), DI for Leg Pain Activity Restrictions/Additional Instructions: Thank you for trusting us with your care today. As discussed, the ultrasound shows no evidence of deep vein thrombosis, which is fantastic We have elected to try medications such as a muscle relaxer and lidocaine patches. These prescriptions to [facility] in [place]. Please follow-up with primary care provider the next few days. Please come back to the emergency department for any acute concerns. Prescriptions: New methocarbamol 750 mg tablet 750 mg PO TID PRN (Reason: muscle spasm) Qty: 14 RF: 0 lidocaine 5 % adhesive patch,medicated 1 patch topical DAILY PRN (Reason: pain) Qty: 15 RF: 0 No Action (DME) Blood Glucose Test Strip See Rx Instructions .ROUTE .MEDSUPPLY Qty: 200 RF: 11 zolpidem 10 mg tablet 5 mg PO BEDTIME PRN (Reason: sleep) Qty: 45 RF: 0 amlodipine 10 mg tablet 10 mg PO DAILY Qty: 90 RF: 3 metoprolol tartrate [Lopressor] 100 mg tablet 100 mg PO BID Qty: 180 RF: 3 coenzyme Q10 [CoQ-10] 100 mg capsule 300 mg PO DAILY RF: 0 cholecalciferol (vitamin D3) 125 mcg (5,000 unit) capsule 5,000 unit PO QDAY Qty: 0 RF: 0 calcium carbonate [Calci-Chew] 500 MG tablet,chewable 600 mg PO QDAY Qty: 0 RF: 0 (DME) pen needle, diabetic [1st Tier Unifine Pentips] 31 gauge x 5/16 needle See Dose Instructions .ROUTE .MEDSUPPLY Qty: 100 RF: 11 gabapentin 300 mg capsule 900 mg PO BEDTIME Qty: 270 RF: 3 losartan 100 mg tablet 100 mg PO DAILY Qty: 90 RF: 3 atorvastatin [Lipitor] 10 mg tablet 10 mg PO HS Qty: 30 RF: 0 escitalopram oxalate [Lexapro] 10 mg tablet 10 mg PO QDAY Qty: 90 RF: 3 Hold Instructions: med change metformin 500 mg tablet extended release 24 hr 1,000 mg PO DAILY RF: 0 glimepiride 2 mg tablet 4 mg PO QAM RF: 0 PreserVision AREDS-2 [id number] iv-tpti-di-mg Capsule 1 cap PO BID RF: 0 Basaglar KwikPen U-100 Insulin 100 unit/mL (3 mL) Insulin Pen 12 unit SUBCUT DAILY RF: 0 Januvia 50 mg Tablet 100 mg PO DAILY RF: 0 Referrals: Sylvie Roy DO [Primary Care Provider] - <Mick Giordano DO - Last Filed: 10/22/20 05:57> Cosign ED Attending Mihcelleature Attestation: I was immediately available in the department for consultation. This documentation has been reviewed and I agree with assessment and plan. Supervised by Mick Giordano DO
[2020-10-21] MEDS: LIDOCAINE PATCH 1 EACH ADH..PATCH TOP (20:02)
[2020-10-21] MEDS: ACETAMINOPHEN 325 MG TABLET 650 MG PO (20:02)
[2020-10-21] MEDS: methocarbamoL 500 MG TABLET 750 MG PO (20:21)
[2020-10-21 20:34] VITALS: BP 119/62; PULSE 59; RESP 18; O2SAT 97
== END 2020-10-21 20:36 | disposition home or self-care (01) ==
PROVIDERS: Emergency Provider Nurse Practitioner Family; PCP Family Medicine
DX: M79.605 Pain in left leg (principal)
CPT/HCPCS: 93971; 99283; 99284

== ENCOUNTER → 2020-10-25 13:33 | Outpatient (CLI) | payer MEDICARE, OTHER, SELFPAY ==
[2020-06-16 13:58] VITALS: BMI 33.1
--- NOTE | 2020-10-25 13:35 | DI.ECHO.S_ITS ---
[facility]---------+ [facility] +---------+ : : [address] : : : : [id number] : : : : Phone: [phone]+ Echocardiogram Report + + :Name: ALAN SAL Study Date: 10/25/2020 Height: 62 in : :[facility] ReadingLocation: Weight: 184 lb : : Gender: Female BSA: 1.8 m2 : :: 1945 Age: 74 yrs BP: 180/90 mmHg: :Reason For Study: LOWER EXTREMITY EDEMA : :Ordering Physician: BERENICE, : :DIPESH Performed By: Aliza Sanchez : :Referring: DIPESH NG : + + Interpretation Summary The left ventricle is normal in size and wall thickness. Left ventricular systolic function appears normal without focal wall motion abnormalities. The ejection fraction is estimated to be 65-70%. Diastolic parameters suggest probable normal left ventricular diastolic function and normal filling pressures. The right ventricle is normal in size and function. Pulmonary artery pressures cannot be estimated because of the lack of a measurable TR jet velocity but the IVC suggests a CVP of around 3 mmHg. Both atria are normal in size. There is no significant valvular heart disease. The aortic root is normal size. No significant changes since prior echo study except for resolution of aortic regurgitation. Procedure: A two-dimensional transthoracic echocardiogram with color flow and Doppler was performed. The study quality was technically adequate. Comparison is made with the echocardiogram of 01/17/2017. The patient was in sinus rhythm with heart rates between 63-67 bpm during the exam. Left Ventricle: The left ventricle is normal in size and wall thickness. Left ventricular systolic function appears normal without focal wall motion abnormalities. The ejection fraction is estimated to be 65-70%. Diastolic parameters suggest probable normal left ventricular diastolic function and normal filling pressures. Right Ventricle: The right ventricle is normal in size and function. Atria: Both atria are normal in size. There is no Doppler evidence for an interatrial shunt. Mitral Valve: There is mild to moderate mitral annular calcification. The mitral valve leaflets appear mildly thickened, but open well. There is trace mitral regurgitation. Aortic Valve: The aortic valve is trileaflet. The aortic valve opens well. There is no aortic valve stenosis. No aortic regurgitation is present. Tricuspid Valve: The tricuspid valve is normal in structure and function. There is trace tricuspid regurgitation. Pulmonary artery pressures cannot be estimated because of the lack of a measurable TR jet velocity but the IVC suggests a CVP of around 3 mmHg. Pulmonic Valve: The pulmonic valve is not well visualized. There is no pulmonic valvular regurgitation. There is no significant valvular heart disease. Great Vessels: The aortic root is normal size. The dimensions of the ascending aorta are normal. The IVC is of normal diameter and collapses greater than 50% with a sniff. This suggests a low right atrial pressure of 3 mm Hg. Pericardium/ Pleura There is no pericardial effusion. There is no pleural effusion. MMode/2D Measurements & Calculations LVIDd: 4.0 cm LVOT diam: 2.0 cm LVIDs: 2.5 cm Ao root diam: 3.0 cm FS: 36.5 % asc Aorta Diam: 2.9 cm IVSd: 0.85 cm LVPWd: 0.94 cm LV moise. diameter/BSA (cm/m^2): 2.1 LV sys. diameter/BSA (cm/m^2): 1.4 LA A2 area: 12.9 cm2 RA long axis: 4.6 cm LA A4 area: 16.5 cm2 RA area: 14.9 cm2 LA length (vol): 4.9 cm RA vol: 41.3 ml LA vol: 36.6 ml RA : 22.4 ml/m2 LA vol index: 19.8 ml/m2 IVC diam: 1.1 cm RVD1 (basal): 2.8 cm TAPSE: 1.7 cm Doppler Measurements & Calculations Ao V2 max: 103.4 cm/sec LVOT Max Memo: 100.4 cm/sec Ao V2 mean: 74.6 cm/sec LV V1 max P.0 mmHg Ao max P.3 mmHg LV V1 VTI: 23.6 cm Ao mean P.5 mmHg LOC(I,D): 2.9 cm2 Ao V2 VTI: 24.1 cm LOC(V,D): 2.9 cm2 sev ratio: 0.98 LOC indexed to BSA (cm^2/m^2): 1.6 MV E max memo: 72.8 cm/sec PA V2 max: 103.8 cm/sec MV A max memo: 79.1 cm/sec PA V2 mean: 71.0 cm/sec MV E/A: 0.92 PA mean P.3 mmHg Med Peak E' Memo: 4.7 cm/sec PA pr(Accel): 31.0 mmHg E/E' med: 15.6 Lat Peak E' Memo: 7.0 cm/sec E/E' lat: 10.5 E/e' average: 13.1 MV dec time: 0.23 sec SV(OT): 70.8 ml Reading Physician:08:13 PM
== END ==
PROVIDERS: PCP Family Medicine; Referring Provider Family Medicine; Visit Provider Family Medicine
DX: R60.0 Localized edema (principal)
CPT/HCPCS: 93306

== ENCOUNTER → 2021-02-01 17:02 | Outpatient (CLI) | payer MEDICARE, OTHER, SELFPAY ==
[2020-11-02 10:03] VITALS: BMI 33.1
--- NOTE | 2021-02-01 17:06 | DI.RAD.S_ITS ---
PROCEDURE: XR KNEE LT 3V INDICATIONS: Acute left knee pain TECHNIQUE: 3 views of the knee were acquired. COMPARISON: None. FINDINGS: Generalized decrease in osseous mineralization noted. Cortical thickening involving the lateral distal tibial diaphyseal cortex may reflect sequelae of prior trauma or healed non ossifying fibroma. There is moderate medial and severe patellofemoral joint space narrowing with marginal osteophyte present. No significant joint effusion. No evidence of fracture or foreign body. IMPRESSION: Osteopenia and osteoarthritis without fracture or foreign body. Approved by: Sherman Richardson M.D. on 02/01/2021 at 16:50
== END ==
PROVIDERS: Family Provider Family Medicine; PCP Family Medicine; Referring Provider Physical Medicine & Rehabilitation; Visit Provider Physical Medicine & Rehabilitation
DX: M17.12 Unilateral primary osteoarthritis, left knee (principal); M85.862 Other specified disorders of bone density and structure, left lower leg; Z98.1 Arthrodesis status
CPT/HCPCS: 20611; 73562; 99215; J7318

== ENCOUNTER 2021-02-13 10:30 | Outpatient (RCR) | payer MEDICARE, OTHER, SELFPAY ==
[2020-11-02 10:03] VITALS: BMI 33.1
--- NOTE | 2020-12-02 16:59 | PT.OIE ---
Current Diagnoses Pain in left hip (12/02/20) Pain in left knee (12/02/20) Pain in left leg (12/02/20) Pain in left lower leg (12/02/20) Other abnormalities of gait and mobility (12/02/20) Strain of muscle, fascia and tendon of the posterior muscle group at thigh level, right thigh, initial encounter (12/02/20) Strain of muscle, fascia and tendon of the posterior muscle group at thigh level, right thigh, subsequent encounter (12/02/20) Past Medical History (Last Reviewed 11/15/20 @ 08:15 by Sylvie Roy DO) Acute upper GI bleed Anxiety Breast cancer (1992) Breast cancer, left breast (2016) Cataract (2010) Chicken pox Diabetes mellitus (~1987) Fractures GERD (gastroesophageal reflux disease) H/O lumpectomy H/O mastectomy Hayfever (~1959) History of fusion of cervical spine (2011) History of lumbar spinal fusion (2009) History of lumbar spinal fusion History of recurrent ear infection Hyperlipidemia (~1997) Hyperparathyroidism (2013) Hypertension (~1997) Impingement syndrome of right shoulder Lumbar spine pain Measles Osteopenia Osteoporosis Ribs, multiple fractures Shoulder pain (2014) Sternal fracture (2014) Urinary incontinence (2012) Vertigo (2011) Past Surgical History (Last Reviewed 11/15/20 @ 08:15 by Sylvie Roy DO) Anesthesia complication H/O lumpectomy H/O mastectomy History of fusion of cervical spine (2011) History of knee replacement (2006) History of lumbar spinal fusion (2009) History of lumbar spinal fusion Visit Care Team Role Provider Type Sylvie Roy DO Attending Provider Physician Family Provider Primary Care Provider Referring Provider Specialty: [facility] Address: [address] [place] [address], [facility] Email: [email or web address] Physical Therapy Initial Evaluation PT-OP-A Visit Information Start: 12/02/20 16:27 Freq: Status: Active Protocol: Document 12/02/20 13:45 DCW (Rec: 12/02/20 16:38 DCW [id number]) Out-Patient Physical Therapy Visit Information Visit Information Visit Type Initial Evaluation Visit Start Time 13:45 Visit Stop Time 14:30 Total Visit Minutes 45 Visit Number 1 Number of CRIMINAL INTELLIGENCE SPECIALIST Visits 0 Evaluation Information Evaluation Date 12/02/20 PT-OP-B Current Condition Start: 12/02/20 16:27 Freq: Status: Active Protocol: Document 12/02/20 13:45 DCW (Rec: 12/02/20 16:38 DCW [id number]) Current Condition History of Current Condition Onset Date 8 weeks Current Complaints Severe left leg pain, worsening left hip and right leg pain History of Current Condition Pt is a 74 year old female well known to this clinic presenting with an eight week history of worsening lower extremity pain. Pt reports it began when she was out walking with a friend, the we going up an incline, and pt suddenly experienced significant pain in left medial calf. Pt initially just went home and elevated it with ice, but then was worried about a DVT due to the location of her pain, so she went to the ED. Pt reports her US was negative, and her PCP feels it is strictly a musculoskeletal injury of the knee. Over the last 1-2 weeks, pt has been having worsening pain in her left hip now, as well as her right knee. Pt does have a history of back problems, so she also made an appointment with Dr Yoder for a spinal injection, but could not get in until February. Pt also feels like her ankles have been swelling the past week. PT-OP-C Subjective Start: 12/02/20 16:27 Freq: Status: Active Protocol: Document 12/02/20 13:45 DCW (Rec: 12/02/20 16:38 DCW [id number]) OP-PT Subjective Patient Comments Patient Comments I can barely walk any more. We had been going a mile each day, now I'm tete if I can get 100' without needing a break. Patient Reported Progress Worse Patient Questionnaires Lower Extremity Functional Scale LEFS Score 41.75% LEFS Impairment 40 to 59% Impaired (Score 32- 47) OP-PT Pain Assessment Pain Assessment Grid Paper Pain Assessment Grid Completed Yes: See scan PT-OP-F Manual Assessment Start: 12/02/20 16:27 Freq: Status: Active Protocol: Document 12/02/20 13:45 DCW (Rec: 12/02/20 16:47 DCW [id number]) Manual Assessments Soft Tissue Assessment Soft Tissue Mobility Assessment Moderate tone with tenderness to palpation 4/4: Palpation not allowed along left proximal medial calf Moderate tone with tenderness to palpation 3/4: Wincing and withdraw along the rest of her left proximal calf, left piriformis, left distal hamstrings, left ITB, Left quads PT-OP-G Mobility & Gait Start: 12/02/20 16:27 Freq: Status: Active Protocol: Document 12/02/20 13:45 DCW (Rec: 12/02/20 16:47 DCW [id number]) OP Gait Assessment Gait Gait Assistance Required: Standby Assistance Assistive Devices Assistive Device Straight Cane Gait Deviations General Gait Pattern Antalgic,Lateral Trunk Lean Factors Limiting Gait Function Factors Limiting Gait Function Decreased Strength,Pain PT-OP-L Special Tests Start: 12/02/20 16:27 Freq: Status: Active Protocol: Document 12/02/20 13:45 DCW (Rec: 12/02/20 16:47 DCW [id number]) Special Tests Knee Special Tests Varus- 0 Degrees Test Results Negative Valgus- 0 Degrees Test Results Negative Posterior Draw Test Results Negative Anterior Draw Test Results Negative PT-OP-M Strength Start: 12/02/20 16:27 Freq: Status: Active Protocol: Document 12/02/20 13:45 DCW (Rec: 12/02/20 16:47 DCW [id number]) Ankle/Foot Strength Ankle and Foot Manual Muscle Testing Left Comments Plantarflexion with extended knee 4/5, Minimal pain Plantarflexion with flexed knee 1/5, Severe pain PT-OP-Q Treatments Start: 12/02/20 16:27 Freq: Status: Active Protocol: Document 12/02/20 13:45 DCW (Rec: 12/02/20 16:29 DCW [id number]) Therapeutic Exercises Sitting Exercises 1 Sitting Exercise Name Seated piriformis stretch Side left PT-OP-T Assessment and Plan Start: 12/02/20 16:27 Freq: Status: Active Protocol: Document 12/02/20 13:45 DCW (Rec: 12/02/20 16:59 DCW [id number]) Physical Therapy Assessment Rehab Potential Rehabilitation Potential Good Evaluation Complexity Number of Personal Factors/Comorbidities 1-2 Number of Body Systems Impaired 4 or More Clinical Presentation at Evaluation Evolving Impairments Impairments Activity Tolerance,Edema, Functional Activities, Functional Mobility,Gait,Pain, Soft Tissue Mobility,Strength Goals Three Impairment Pt scores a 41.75% function on the Lower Extremity Functional Scale Longterm Goal (LTG) Pt to increase LEFS score at least 21 points to 67.5% to show improved function with daily activity LTG Duration 02/02/21 Two Impairment Pt's daily walks have declined from one mile to ~100' Longterm Goal (LTG) Pt to return to walking one mile with her friend without left leg pain in order to return to her preferred daily exercise LTG Duration 02/02/21 One Impairment Pt does not have an appropriate HEP Short Term Goal (STG) Pt to be independent and compliant with an appropriate HEP STG Duration 01/02/21 Assessment Summary Assessment Pt presents with signs and symptoms that may be suggestive of a left proximal soleus sprain/tear. DDx fairly difficult at this time, because pt is largely very tender everywhere along her left leg, however with pt's reported timeline of pain progression, appears that for the first few weeks, her pain along the proximal medial calf was the only severe pain, however then as she walked around, she overcompensated elsewhere, when then led to spasm through her left hip, including possible left piriformis syndrome, with her recent complaints of shooting nerve pain beginning within the last week. Pt also has drastically reduced her time ambulating, which may explain her recent ankle edema bilaterally. Pt may benefit from skilled therapy focusing on STM, flexibility/stretching , strengthening to help secondary symptoms of injury, as well as inflammation control to promote healing of soleus. If pt does not [id number] within a few weeks, pt may need to return to PCP for imaging of LE. Physical Therapy Plan Frequency and Duration Frequency of Treatment 2x/Week Duration of Treatment Two months Plan of Care Start Date 12/02/20 Plan of Care End Date 02/02/21 Therapeutic Interventions Therapeutic Interventions Aquatic Therapy,Gait Training, Home Exercise Program,Joint Mobilizations,Manual Therapy, Neuromuscular Re-education, Patient/Caregiver Education, Self-Care/Home Management,Soft Tissue Mobilization,Taping, Therapeutic Exercises Modalities Cold Pack/Ice Massage,Electric Stimulation,Hot Packs, Ultrasound Next Visit Focus/Plan Next Note Type Treatment Note Next Visit Plan Flexibility, strengthening, modalities
--- NOTE | 2020-12-02 17:00 | PT.OPPOC ---
Physical, Occupational & Speech Therapy At [facility] Current Diagnoses Pain in left hip (12/02/20) Pain in left knee (12/02/20) Pain in left leg (12/02/20) Pain in left lower leg (12/02/20) Other abnormalities of gait and mobility (12/02/20) Strain of muscle, fascia and tendon of the posterior muscle group at thigh level, right thigh, initial encounter (12/02/20) Strain of muscle, fascia and tendon of the posterior muscle group at thigh level, right thigh, subsequent encounter (12/02/20) Visit Care Team Role Provider Type Sylvie Roy DO Attending Provider Physician Family Provider Primary Care Provider Referring Provider Specialty: Family Practice Address: [address] [place] [address], [facility] Email: [email or web address] Plan Of Care PT-OP-T Assessment and Plan Start: 12/02/20 16:27 Freq: Status: Active Protocol: Document 12/02/20 13:45 DCW (Rec: 12/02/20 16:59 DCW [id number]) Physical Therapy Assessment Rehab Potential Rehabilitation Potential Good Evaluation Complexity Number of Personal Factors/Comorbidities 1-2 Number of Body Systems Impaired 4 or More Clinical Presentation at Evaluation Evolving Impairments Impairments Activity Tolerance,Edema, Functional Activities, Functional Mobility,Gait,Pain, Soft Tissue Mobility,Strength Goals Three Impairment Pt scores a 41.75% function on the Lower Extremity Functional Scale Fci Goal (LTG) Pt to increase LEFS score at least 21 points to 67.5% to show improved function with daily activity LTG Duration 02/02/21 Two Impairment Pt's daily walks have declined from one mile to ~100' Canal Boat Operator Goal (LTG) Pt to return to walking one mile with her friend without left leg pain in order to return to her preferred daily exercise LTG Duration 02/02/21 One Impairment Pt does not have an appropriate HEP Short Term Goal (STG) Pt to be independent and compliant with an appropriate HEP STG Duration 01/02/21 Assessment Summary Assessment Pt presents with signs and symptoms that may be suggestive of a left proximal soleus sprain/tear. DDx fairly difficult at this time, because pt is largely very tender everywhere along her left leg, however with pt's reported timeline of pain progression, appears that for the first few weeks, her pain along the proximal medial calf was the only severe pain, however then as she walked around, she overcompensated elsewhere, when then led to spasm through her left hip, including possible left piriformis syndrome, with her recent complaints of shooting nerve pain beginning within the last week. Pt also has drastically reduced her time ambulating, which may explain her recent ankle edema bilaterally. Pt may benefit from skilled therapy focusing on STM, flexibility/stretching , strengthening to help secondary symptoms of injury, as well as inflammation control to promote healing of soleus. If pt does not [id number] within a few weeks, pt may need to return to PCP for imaging of LE. Physical Therapy Plan Frequency and Duration Frequency of Treatment 2x/Week Duration of Treatment Two months Plan of Care Start Date 12/02/20 Plan of Care End Date 02/02/21 Therapeutic Interventions Therapeutic Interventions Aquatic Therapy,Gait Training, Home Exercise Program,Joint Mobilizations,Manual Therapy, Neuromuscular Re-education, Patient/Caregiver Education, Self-Care/Home Management,Soft Tissue Mobilization,Taping, Therapeutic Exercises Modalities Cold Pack/Ice Massage,Electric Stimulation,Hot Packs, Ultrasound Next Visit Focus/Plan Next Note Type Treatment Note Next Visit Plan Flexibility, strengthening, modalities Plan of Care Dates Plan of Care Start Date 12/02/20 Plan of Care End Date 02/02/21 Electronically Signed by: Taran Elizabeth, PT 12/02/20 1700 Please Sign and Return: I have reviewed this Plan of Care and certify that the skilled therapy services above are required to meet the patient?s needs. Physician Signature Date Printed Name and Credentials Clinical Instructor Signature Printed Name and Credentials
--- NOTE | 2020-12-06 14:29 | PT.OTN ---
Current Diagnoses Pain in left hip (12/06/20) Pain in left knee (12/06/20) Pain in left leg (12/06/20) Pain in left lower leg (12/06/20) Other abnormalities of gait and mobility (12/06/20) Strain of muscle, fascia and tendon of the posterior muscle group at thigh level, right thigh, initial encounter (12/06/20) Strain of muscle, fascia and tendon of the posterior muscle group at thigh level, right thigh, subsequent encounter (12/06/20) Physical Therapy Treatment Note PT-OP-A Visit Information Start: 12/02/20 16:27 Freq: Status: Active Protocol: Document 12/06/20 13:45 DCW (Rec: 12/06/20 14:29 DCW [id number]) Out-Patient Physical Therapy Visit Information Visit Information Visit Type Treatment Note Visit Start Time 13:45 Visit Stop Time 14:30 Total Visit Minutes 45 Visit Number 2 Number of TRANSIT DRIVER Visits 0 Evaluation Information Evaluation Date 12/02/20 PT-OP-B Current Condition Start: 12/02/20 16:27 Freq: Status: Active Protocol: Document 12/02/20 13:45 DCW (Rec: 12/02/20 16:38 DCW [id number]) Current Condition History of Current Condition Onset Date 8 weeks Current Complaints Severe left leg pain, worsening left hip and right leg pain History of Current Condition Pt is a 74 year old female well known to this clinic presenting with an eight week history of worsening lower extremity pain. Pt reports it began when she was out walking with a friend, the we going up an incline, and pt suddenly experienced significant pain in left medial calf. Pt initially just went home and elevated it with ice, but then was worried about a DVT due to the location of her pain, so she went to the ED. Pt reports her US was negative, and her PCP feels it is strictly a musculoskeletal injury of the knee. Over the last 1-2 weeks, pt has been having worsening pain in her left hip now, as well as her right knee. Pt does have a history of back problems, so she also made an appointment with Dr Yoder for a spinal injection, but could not get in until February. Pt also feels like her ankles have been swelling the past week. PT-OP-C Subjective Start: 12/02/20 16:27 Freq: Status: Active Protocol: Document 12/06/20 13:45 DCW (Rec: 12/06/20 14:29 DCW [id number]) OP-PT Subjective Patient Comments Patient Comments I have had better days. I caught my foot on a cord from my computer and hit the floor hard, so I'm just sore all over. PT-OP-F Manual Assessment Start: 12/02/20 16:27 Freq: Status: Active Protocol: Document 12/02/20 13:45 DCW (Rec: 12/02/20 16:47 DCW [id number]) Manual Assessments Soft Tissue Assessment Soft Tissue Mobility Assessment Moderate tone with tenderness to palpation 4/4: Palpation not allowed along left proximal medial calf Moderate tone with tenderness to palpation 3/4: Wincing and withdraw along the rest of her left proximal calf, left piriformis, left distal hamstrings, left ITB, Left quads PT-OP-G Mobility & Gait Start: 12/02/20 16:27 Freq: Status: Active Protocol: Document 12/02/20 13:45 DCW (Rec: 12/02/20 16:47 DCW [id number]) OP Gait Assessment Gait Gait Assistance Required: Standby Assistance Assistive Devices Assistive Device Straight Cane Gait Deviations General Gait Pattern Antalgic,Lateral Trunk Lean Factors Limiting Gait Function Factors Limiting Gait Function Decreased Strength,Pain PT-OP-L Special Tests Start: 12/02/20 16:27 Freq: Status: Active Protocol: Document 12/02/20 13:45 DCW (Rec: 12/02/20 16:47 DCW [id number]) Special Tests Knee Special Tests Varus- 0 Degrees Test Results Negative Valgus- 0 Degrees Test Results Negative Posterior Draw Test Results Negative Anterior Draw Test Results Negative PT-OP-M Strength Start: 12/02/20 16:27 Freq: Status: Active Protocol: Document 12/02/20 13:45 DCW (Rec: 12/02/20 16:47 DCW [id number]) Ankle/Foot Strength Ankle and Foot Manual Muscle Testing Left Comments Plantarflexion with extended knee 4/5, Minimal pain Plantarflexion with flexed knee 1/5, Severe pain PT-OP-Q Treatments Start: 12/02/20 16:27 Freq: Status: Active Protocol: Document 12/06/20 13:45 DCW (Rec: 12/06/20 14:29 DCW [id number]) Therapeutic Exercises Sitting Exercises 3 Sitting Exercise Name 4-way Ankle Flexion Side bilateral Resistance Lv 2 Equipment Used T-band 2 Sitting Exercise Name Soleus stretching Side left Comments manual 1 Sitting Exercise Name Seated piriformis stretch Side left Manual Therapy Treatment Soft Tissue Mobilization Soleus Body Location L Soleus Mobilization Type Strumming,Sustained Pressure Intensity/Depth Moderate Body Position Sitting Low back Body Location L QL, Piriformsi, Paraspinals Mobilization Type Strumming,Sustained Pressure Intensity/Depth Moderate Body Position Sidelying PT-OP-T Assessment and Plan Start: 12/02/20 16:27 Freq: Status: Active Protocol: Document 12/06/20 13:45 DCW (Rec: 12/06/20 14:29 DCW [id number]) Physical Therapy Assessment Impairments Impairments Activity Tolerance,Edema, Functional Activities, Functional Mobility,Gait,Pain, Soft Tissue Mobility,Strength Goals Three Impairment Pt scores a 41.75% function on the Lower Extremity Functional Scale Care Home Goal (LTG) Pt to increase LEFS score at least 21 points to 67.5% to show improved function with daily activity LTG Duration 02/02/21 Two Impairment Pt's daily walks have declined from one mile to ~100' Care Home Goal (LTG) Pt to return to walking one mile with her friend without left leg pain in order to return to her preferred daily exercise LTG Duration 02/02/21 One Impairment Pt does not have an appropriate HEP Short Term Goal (STG) Pt to be independent and compliant with an appropriate HEP STG Duration 01/02/21 Assessment Summary Assessment Pt fairly sore overall following her fall, however does not appear to have suffered any lasting injuries. Pt's left soleus still appears to be the starting point of her pain, tolerated STM and strengthening well today, although therapist did take it easy due to her general soreness. Physical Therapy Plan Frequency and Duration Frequency of Treatment 2x/Week Duration of Treatment Two months Plan of Care Start Date 12/02/20 Plan of Care End Date 02/02/21 Therapeutic Interventions Therapeutic Interventions Aquatic Therapy,Gait Training, Home Exercise Program,Joint Mobilizations,Manual Therapy, Neuromuscular Re-education, Patient/Caregiver Education, Self-Care/Home Management,Soft Tissue Mobilization,Taping, Therapeutic Exercises Modalities Cold Pack/Ice Massage,Electric Stimulation,Hot Packs, Ultrasound Next Visit Focus/Plan Next Note Type Treatment Note Next Visit Plan Flexibility, strengthening, modalities
--- NOTE | 2020-12-08 10:33 | PT.OTN ---
Current Diagnoses Pain in left hip (12/08/20) Pain in left knee (12/08/20) Pain in left leg (12/08/20) Pain in left lower leg (12/08/20) Other abnormalities of gait and mobility (12/08/20) Strain of muscle, fascia and tendon of the posterior muscle group at thigh level, right thigh, initial encounter (12/08/20) Strain of muscle, fascia and tendon of the posterior muscle group at thigh level, right thigh, subsequent encounter (12/08/20) Physical Therapy Treatment Note PT-OP-A Visit Information Start: 12/02/20 16:27 Freq: Status: Active Protocol: Document 12/08/20 09:51 DCW (Rec: 12/08/20 10:32 DCW [id number]) Out-Patient Physical Therapy Visit Information Visit Information Visit Type Treatment Note Visit Start Time 09:51 Visit Stop Time 10:30 Total Visit Minutes 39 Visit Number 3 Number of DIRECTOR [employer] ECON[employer]ICS Visits 0 Evaluation Information Evaluation Date 12/02/20 PT-OP-B Current Condition Start: 12/02/20 16:27 Freq: Status: Active Protocol: Document 12/02/20 13:45 DCW (Rec: 12/02/20 16:38 DCW [id number]) Current Condition History of Current Condition Onset Date 8 weeks Current Complaints Severe left leg pain, worsening left hip and right leg pain History of Current Condition Pt is a 74 year old female well known to this clinic presenting with an eight week history of worsening lower extremity pain. Pt reports it began when she was out walking with a friend, the we going up an incline, and pt suddenly experienced significant pain in left medial calf. Pt initially just went home and elevated it with ice, but then was worried about a DVT due to the location of her pain, so she went to the ED. Pt reports her US was negative, and her PCP feels it is strictly a musculoskeletal injury of the knee. Over the last 1-2 weeks, pt has been having worsening pain in her left hip now, as well as her right knee. Pt does have a history of back problems, so she also made an appointment with Dr Yoder for a spinal injection, but could not get in until February. Pt also feels like her ankles have been swelling the past week. PT-OP-C Subjective Start: 12/02/20 16:27 Freq: Status: Active Protocol: Document 12/08/20 09:51 DCW (Rec: 12/08/20 10:32 DCW [id number]) OP-PT Subjective Patient Comments Patient Comments I think things are moving along some. PT-OP-F Manual Assessment Start: 12/02/20 16:27 Freq: Status: Active Protocol: Document 12/02/20 13:45 DCW (Rec: 12/02/20 16:47 DCW [id number]) Manual Assessments Soft Tissue Assessment Soft Tissue Mobility Assessment Moderate tone with tenderness to palpation 4/4: Palpation not allowed along left proximal medial calf Moderate tone with tenderness to palpation 3/4: Wincing and withdraw along the rest of her left proximal calf, left piriformis, left distal hamstrings, left ITB, Left quads PT-OP-G Mobility & Gait Start: 12/02/20 16:27 Freq: Status: Active Protocol: Document 12/02/20 13:45 DCW (Rec: 12/02/20 16:47 DCW [id number]) OP Gait Assessment Gait Gait Assistance Required: Standby Assistance Assistive Devices Assistive Device Straight Cane Gait Deviations General Gait Pattern Antalgic,Lateral Trunk Lean Factors Limiting Gait Function Factors Limiting Gait Function Decreased Strength,Pain PT-OP-L Special Tests Start: 12/02/20 16:27 Freq: Status: Active Protocol: Document 12/02/20 13:45 DCW (Rec: 12/02/20 16:47 DCW [id number]) Special Tests Knee Special Tests Varus- 0 Degrees Test Results Negative Valgus- 0 Degrees Test Results Negative Posterior Draw Test Results Negative Anterior Draw Test Results Negative PT-OP-M Strength Start: 12/02/20 16:27 Freq: Status: Active Protocol: Document 12/02/20 13:45 DCW (Rec: 12/02/20 16:47 DCW [id number]) Ankle/Foot Strength Ankle and Foot Manual Muscle Testing Left Comments Plantarflexion with extended knee 4/5, Minimal pain Plantarflexion with flexed knee 1/5, Severe pain PT-OP-Q Treatments Start: 12/02/20 16:27 Freq: Status: Active Protocol: Document 12/08/20 09:51 DCW (Rec: 12/08/20 10:32 DCW [id number]) Therapeutic Exercises Sitting Exercises 3 Sitting Exercise Name 4-way Ankle Flexion Side bilateral Resistance Lv 2 Equipment Used T-band 2 Sitting Exercise Name Soleus stretching Side left Comments manual Manual Therapy Treatment Soft Tissue Mobilization Soleus Body Location L Soleus Mobilization Type Strumming,Sustained Pressure Intensity/Depth Moderate Body Position Sitting Low back Body Location L QL, Piriformsi, Paraspinals Mobilization Type Strumming,Sustained Pressure Intensity/Depth Moderate Body Position Sidelying PT-OP-R Modalities Start: 12/02/20 16:27 Freq: Status: Active Protocol: Document 12/08/20 09:51 DCW (Rec: 12/08/20 10:33 [facility] [id number]) Ultrasound Therapy Treatment Left Medial Proximal Leg Treatment Duration (minutes) 8 Patient Position Sitting Coupling Medium Ultrasound Gel Applicator Size (cm2) 5 Frequency Setting (mHz) 1 Duty Cycle 100% PT-OP-T Assessment and Plan Start: 12/02/20 16:27 Freq: Status: Active Protocol: Document 12/08/20 09:51 DCW (Rec: 12/08/20 10:32 [facility] [id number]) Physical Therapy Assessment Impairments Impairments Activity Tolerance,Edema, Functional Activities, Functional Mobility,Gait,Pain, Soft Tissue Mobility,Strength Goals Three Impairment Pt scores a 41.75% function on the Lower Extremity Functional Scale Longterm Goal (LTG) Pt to increase LEFS score at least 21 points to 67.5% to show improved function with daily activity LTG Duration 02/02/21 Two Impairment Pt's daily walks have declined from one mile to ~100' Resident Services Coordinator Goal (LTG) Pt to return to walking one mile with her friend without left leg pain in order to return to her preferred daily exercise LTG Duration 02/02/21 One Impairment Pt does not have an appropriate HEP Short Term Goal (STG) Pt to be independent and compliant with an appropriate HEP STG Duration 01/02/21 Assessment Summary Assessment Pt moving better than she was on Saturday, not feels the effects of her fall as much. Pt still very tender along medial soleus, less severe radicular symptoms along L LE. Physical Therapy Plan Frequency and Duration Frequency of Treatment 2x/Week Duration of Treatment Two months Plan of Care Start Date 12/02/20 Plan of Care End Date 02/02/21 Therapeutic Interventions Therapeutic Interventions Aquatic Therapy,Gait Training, Home Exercise Program,Joint Mobilizations,Manual Therapy, Neuromuscular Re-education, Patient/Caregiver Education, Self-Care/Home Management,Soft Tissue Mobilization,Taping, Therapeutic Exercises Modalities Cold Pack/Ice Massage,Electric Stimulation,Hot Packs, Ultrasound Next Visit Focus/Plan Next Note Type Treatment Note Next Visit Plan Flexibility, strengthening, modalities
--- NOTE | 2020-12-21 16:01 | PT.OTN ---
Current Diagnoses Pain in left hip (12/21/20) Pain in left knee (12/21/20) Pain in left leg (12/21/20) Pain in left lower leg (12/21/20) Other abnormalities of gait and mobility (12/21/20) Strain of muscle, fascia and tendon of the posterior muscle group at thigh level, right thigh, initial encounter (12/21/20) Strain of muscle, fascia and tendon of the posterior muscle group at thigh level, right thigh, subsequent encounter (12/21/20) Physical Therapy Treatment Note PT-OP-A Visit Information Start: 12/02/20 16:27 Freq: Status: Active Protocol: Document 12/21/20 15:18 DCW (Rec: 12/21/20 16:01 DCW [id number]) Out-Patient Physical Therapy Visit Information Visit Information Visit Type Treatment Note Visit Start Time 15:18 Visit Stop Time 16:00 Total Visit Minutes 43 Visit Number 4 Number of WHITE SHOE RAGGER Visits 0 Evaluation Information Evaluation Date 12/02/20 PT-OP-B Current Condition Start: 12/02/20 16:27 Freq: Status: Active Protocol: Document 12/02/20 13:45 DCW (Rec: 12/02/20 16:38 DCW [id number]) Current Condition History of Current Condition Onset Date 8 weeks Current Complaints Severe left leg pain, worsening left hip and right leg pain History of Current Condition Pt is a 74 year old female well known to this clinic presenting with an eight week history of worsening lower extremity pain. Pt reports it began when she was out walking with a friend, the we going up an incline, and pt suddenly experienced significant pain in left medial calf. Pt initially just went home and elevated it with ice, but then was worried about a DVT due to the location of her pain, so she went to the ED. Pt reports her US was negative, and her PCP feels it is strictly a musculoskeletal injury of the knee. Over the last 1-2 weeks, pt has been having worsening pain in her left hip now, as well as her right knee. Pt does have a history of back problems, so she also made an appointment with Dr Yoder for a spinal injection, but could not get in until February. Pt also feels like her ankles have been swelling the past week. PT-OP-C Subjective Start: 12/02/20 16:27 Freq: Status: Active Protocol: Document 12/21/20 15:18 DCW (Rec: 12/21/20 16:01 DCW [id number]) OP-PT Subjective Patient Comments Patient Comments Better than I had been feeling. PT-OP-F Manual Assessment Start: 12/02/20 16:27 Freq: Status: Active Protocol: Document 12/02/20 13:45 DCW (Rec: 12/02/20 16:47 DCW [id number]) Manual Assessments Soft Tissue Assessment Soft Tissue Mobility Assessment Moderate tone with tenderness to palpation 4/4: Palpation not allowed along left proximal medial calf Moderate tone with tenderness to palpation 3/4: Wincing and withdraw along the rest of her left proximal calf, left piriformis, left distal hamstrings, left ITB, Left quads PT-OP-G Mobility & Gait Start: 12/02/20 16:27 Freq: Status: Active Protocol: Document 12/02/20 13:45 DCW (Rec: 12/02/20 16:47 DCW [id number]) OP Gait Assessment Gait Gait Assistance Required: Standby Assistance Assistive Devices Assistive Device Straight Cane Gait Deviations General Gait Pattern Antalgic,Lateral Trunk Lean Factors Limiting Gait Function Factors Limiting Gait Function Decreased Strength,Pain PT-OP-L Special Tests Start: 12/02/20 16:27 Freq: Status: Active Protocol: Document 12/02/20 13:45 DCW (Rec: 12/02/20 16:47 DCW [id number]) Special Tests Knee Special Tests Varus- 0 Degrees Test Results Negative Valgus- 0 Degrees Test Results Negative Posterior Draw Test Results Negative Anterior Draw Test Results Negative PT-OP-M Strength Start: 12/02/20 16:27 Freq: Status: Active Protocol: Document 12/02/20 13:45 DCW (Rec: 12/02/20 16:47 DCW [id number]) Ankle/Foot Strength Ankle and Foot Manual Muscle Testing Left Comments Plantarflexion with extended knee 4/5, Minimal pain Plantarflexion with flexed knee 1/5, Severe pain PT-OP-Q Treatments Start: 12/02/20 16:27 Freq: Status: Active Protocol: Document 12/21/20 15:18 DCW (Rec: 12/21/20 16:01 DCW [id number]) Therapeutic Exercises Sitting Exercises 4 Sitting Exercise Name Hamstring curl Side bilateral Resistance Lv 2 Equipment Used T-band 3 Sitting Exercise Name 4-way Ankle Flexion Side bilateral Resistance Lv 2 Equipment Used T-band 2 Sitting Exercise Name Soleus stretching Side left Comments manual Manual Therapy Treatment Soft Tissue Mobilization Soleus Body Location L Soleus Mobilization Type Strumming,Sustained Pressure Intensity/Depth Moderate Body Position Sitting Low back Body Location L QL, Piriformsi, Paraspinals Mobilization Type Strumming,Sustained Pressure Intensity/Depth Moderate Body Position Sidelying PT-OP-R Modalities Start: 12/02/20 16:27 Freq: Status: Active Protocol: Document 12/08/20 09:51 DCW (Rec: 12/08/20 10:33 DC [id number]) Ultrasound Therapy Treatment Left Medial Proximal Leg Treatment Duration (minutes) 8 Patient Position Sitting Coupling Medium Ultrasound Gel Applicator Size (cm2) 5 Frequency Setting (mHz) 1 Duty Cycle 100% PT-OP-T Assessment and Plan Start: 12/02/20 16:27 Freq: Status: Active Protocol: Document 12/21/20 15:18 DCW (Rec: 12/21/20 16:01 [facility] [id number]) Physical Therapy Assessment Impairments Impairments Activity Tolerance,Edema, Functional Activities, Functional Mobility,Gait,Pain, Soft Tissue Mobility,Strength Goals Three Impairment Pt scores a 41.75% function on the Lower Extremity Functional Scale [facility] Goal (LTG) Pt to increase LEFS score at least 21 points to 67.5% to show improved function with daily activity LTG Duration 02/02/21 Two Impairment Pt's daily walks have declined from one mile to ~100' [facility] Goal (LTG) Pt to return to walking one mile with her friend without left leg pain in order to return to her preferred daily exercise LTG Duration 02/02/21 One Impairment Pt does not have an appropriate HEP Short Term Goal (STG) Pt to be independent and compliant with an appropriate HEP STG Duration 01/02/21 Assessment Summary Assessment Pt showing some improvement with soleus tone and pain overall, but still having a lot of increased tone throughout her entire left leg . Physical Therapy Plan Frequency and Duration Frequency of Treatment 2x/Week Duration of Treatment Two months Plan of Care Start Date 12/02/20 Plan of Care End Date 02/02/21 Therapeutic Interventions Therapeutic Interventions Aquatic Therapy,Gait Training, Home Exercise Program,Joint Mobilizations,Manual Therapy, Neuromuscular Re-education, Patient/Caregiver Education, Self-Care/Home Management,Soft Tissue Mobilization,Taping, Therapeutic Exercises Modalities Cold Pack/Ice Massage,Electric Stimulation,Hot Packs, Ultrasound Next Visit Focus/Plan Next Note Type Treatment Note Next Visit Plan Flexibility, strengthening, modalities
--- NOTE | 2020-12-23 10:30 | PT.OTN ---
Current Diagnoses Pain in left hip (12/23/20) Pain in left knee (12/23/20) Pain in left leg (12/23/20) Pain in left lower leg (12/23/20) Other abnormalities of gait and mobility (12/23/20) Strain of muscle, fascia and tendon of the posterior muscle group at thigh level, right thigh, initial encounter (12/23/20) Strain of muscle, fascia and tendon of the posterior muscle group at thigh level, right thigh, subsequent encounter (12/23/20) Physical Therapy Treatment Note PT-OP-A Visit Information Start: 12/02/20 16:27 Freq: Status: Active Protocol: Document 12/23/20 09:45 DCW (Rec: 12/23/20 10:30 DCW [id number]) Out-Patient Physical Therapy Visit Information Visit Information Visit Type Treatment Note Visit Start Time 09:45 Visit Stop Time 10:30 Total Visit Minutes 45 Visit Number 5 Number of V[employer]INTER RETURNER Visits 0 Evaluation Information Evaluation Date 12/02/20 PT-OP-B Current Condition Start: 12/02/20 16:27 Freq: Status: Active Protocol: Document 12/02/20 13:45 DCW (Rec: 12/02/20 16:38 DCW [id number]) Current Condition History of Current Condition Onset Date 8 weeks Current Complaints Severe left leg pain, worsening left hip and right leg pain History of Current Condition Pt is a 74 year old female well known to this clinic presenting with an eight week history of worsening lower extremity pain. Pt reports it began when she was out walking with a friend, the we going up an incline, and pt suddenly experienced significant pain in left medial calf. Pt initially just went home and elevated it with ice, but then was worried about a DVT due to the location of her pain, so she went to the ED. Pt reports her US was negative, and her PCP feels it is strictly a musculoskeletal injury of the knee. Over the last 1-2 weeks, pt has been having worsening pain in her left hip now, as well as her right knee. Pt does have a history of back problems, so she also made an appointment with Dr Yoder for a spinal injection, but could not get in until February. Pt also feels like her ankles have been swelling the past week. PT-OP-C Subjective Start: 12/02/20 16:27 Freq: Status: Active Protocol: Document 12/23/20 09:45 DCW (Rec: 12/23/20 10:30 DCW [id number]) OP-PT Subjective Patient Comments Patient Comments I think it's a little bit better, but it is still inturrupting my sleep. PT-OP-F Manual Assessment Start: 12/02/20 16:27 Freq: Status: Active Protocol: Document 12/02/20 13:45 DCW (Rec: 12/02/20 16:47 DCW [id number]) Manual Assessments Soft Tissue Assessment Soft Tissue Mobility Assessment Moderate tone with tenderness to palpation 4/4: Palpation not allowed along left proximal medial calf Moderate tone with tenderness to palpation 3/4: Wincing and withdraw along the rest of her left proximal calf, left piriformis, left distal hamstrings, left ITB, Left quads PT-OP-G Mobility & Gait Start: 12/02/20 16:27 Freq: Status: Active Protocol: Document 12/02/20 13:45 DCW (Rec: 12/02/20 16:47 DCW [id number]) OP Gait Assessment Gait Gait Assistance Required: Standby Assistance Assistive Devices Assistive Device Straight Cane Gait Deviations General Gait Pattern Antalgic,Lateral Trunk Lean Factors Limiting Gait Function Factors Limiting Gait Function Decreased Strength,Pain PT-OP-L Special Tests Start: 12/02/20 16:27 Freq: Status: Active Protocol: Document 12/02/20 13:45 DCW (Rec: 12/02/20 16:47 DCW [id number]) Special Tests Knee Special Tests Varus- 0 Degrees Test Results Negative Valgus- 0 Degrees Test Results Negative Posterior Draw Test Results Negative Anterior Draw Test Results Negative PT-OP-M Strength Start: 12/02/20 16:27 Freq: Status: Active Protocol: Document 12/02/20 13:45 DCW (Rec: 12/02/20 16:47 DCW [id number]) Ankle/Foot Strength Ankle and Foot Manual Muscle Testing Left Comments Plantarflexion with extended knee 4/5, Minimal pain Plantarflexion with flexed knee 1/5, Severe pain PT-OP-Q Treatments Start: 12/02/20 16:27 Freq: Status: Active Protocol: Document 12/23/20 09:45 DCW (Rec: 12/23/20 10:30 DCW [id number]) Therapeutic Exercises Sitting Exercises 4 Sitting Exercise Name Hamstring curl Side bilateral Resistance Lv 2 Equipment Used T-band 3 Sitting Exercise Name 4-way Ankle Flexion Side bilateral Resistance Lv 2 Equipment Used T-band 2 Sitting Exercise Name Soleus stretching Side left Comments manual Manual Therapy Treatment Soft Tissue Mobilization Soleus Body Location L Soleus Mobilization Type Strumming,Sustained Pressure Intensity/Depth Moderate Body Position Sitting Low back Body Location L QL, Piriformsi, Paraspinals Mobilization Type Strumming,Sustained Pressure Intensity/Depth Moderate Body Position Sidelying PT-OP-R Modalities Start: 12/02/20 16:27 Freq: Status: Active Protocol: Document 12/08/20 09:51 DCW (Rec: 12/08/20 10:33 DCW [id number]) Ultrasound Therapy Treatment Left Medial Proximal Leg Treatment Duration (minutes) 8 Patient Position Sitting Coupling Medium Ultrasound Gel Applicator Size (cm2) 5 Frequency Setting (mHz) 1 Duty Cycle 100% PT-OP-T Assessment and Plan Start: 12/02/20 16:27 Freq: Status: Active Protocol: Document 12/23/20 09:45 DCW (Rec: 12/23/20 10:30 DCW [id number]) Physical Therapy Assessment Impairments Impairments Activity Tolerance,Edema, Functional Activities, Functional Mobility,Gait,Pain, Soft Tissue Mobility,Strength Goals Three Impairment Pt scores a 41.75% function on the Lower Extremity Functional Scale [facility] Goal (LTG) Pt to increase LEFS score at least 21 points to 67.5% to show improved function with daily activity LTG Duration 02/02/21 Two Impairment Pt's daily walks have declined from one mile to ~100' [facility] Goal (LTG) Pt to return to walking one mile with her friend without left leg pain in order to return to her preferred daily exercise LTG Duration 02/02/21 One Impairment Pt does not have an appropriate HEP Short Term Goal (STG) Pt to be independent and compliant with an appropriate HEP STG Duration 01/02/21 Assessment Summary Assessment Pt doing fairly well overall, still very sore with palpation . Physical Therapy Plan Frequency and Duration Frequency of Treatment 2x/Week Duration of Treatment Two months Plan of Care Start Date 12/02/20 Plan of Care End Date 02/02/21 Therapeutic Interventions Therapeutic Interventions Aquatic Therapy,Gait Training, Home Exercise Program,Joint Mobilizations,Manual Therapy, Neuromuscular Re-education, Patient/Caregiver Education, Self-Care/Home Management,Soft Tissue Mobilization,Taping, Therapeutic Exercises Modalities Cold Pack/Ice Massage,Electric Stimulation,Hot Packs, Ultrasound Next Visit Focus/Plan Next Note Type Treatment Note Next Visit Plan Flexibility, strengthening, modalities
--- NOTE | 2020-12-30 12:42 | PT.OTN ---
Current Diagnoses Pain in left hip (12/30/20) Pain in left knee (12/30/20) Pain in left leg (12/30/20) Pain in left lower leg (12/30/20) Other abnormalities of gait and mobility (12/30/20) Strain of muscle, fascia and tendon of the posterior muscle group at thigh level, right thigh, initial encounter (12/30/20) Strain of muscle, fascia and tendon of the posterior muscle group at thigh level, right thigh, subsequent encounter (12/30/20) Physical Therapy Treatment Note PT-OP-A Visit Information Start: 12/02/20 16:27 Freq: Status: Active Protocol: Document 12/30/20 11:58 DCW (Rec: 12/30/20 12:42 DCW [id number]) Out-Patient Physical Therapy Visit Information Visit Information Visit Type Treatment Note Visit Start Time 11:58 Visit Stop Time 12:43 Total Visit Minutes 45 Visit Number 6 Number of [employer]AV[employer] EQU[employer]MENT REPAIRER Visits 0 Evaluation Information Evaluation Date 12/02/20 PT-OP-B Current Condition Start: 12/02/20 16:27 Freq: Status: Active Protocol: Document 12/02/20 13:45 DCW (Rec: 12/02/20 16:38 DCW [id number]) Current Condition History of Current Condition Onset Date 8 weeks Current Complaints Severe left leg pain, worsening left hip and right leg pain History of Current Condition Pt is a 74 year old female well known to this clinic presenting with an eight week history of worsening lower extremity pain. Pt reports it began when she was out walking with a friend, the we going up an incline, and pt suddenly experienced significant pain in left medial calf. Pt initially just went home and elevated it with ice, but then was worried about a DVT due to the location of her pain, so she went to the ED. Pt reports her US was negative, and her PCP feels it is strictly a musculoskeletal injury of the knee. Over the last 1-2 weeks, pt has been having worsening pain in her left hip now, as well as her right knee. Pt does have a history of back problems, so she also made an appointment with Dr Yoder for a spinal injection, but could not get in until February. Pt also feels like her ankles have been swelling the past week. PT-OP-C Subjective Start: 12/02/20 16:27 Freq: Status: Active Protocol: Document 12/30/20 11:58 DCW (Rec: 12/30/20 12:42 DCW [id number]) OP-PT Subjective Patient Comments Patient Comments My leg is feeling better. I just decided this morning that maybe I should use a pillow under it at night, because it still bothers me when I'm trying to sleep. PT-OP-F Manual Assessment Start: 12/02/20 16:27 Freq: Status: Active Protocol: Document 12/02/20 13:45 DCW (Rec: 12/02/20 16:47 DCW [id number]) Manual Assessments Soft Tissue Assessment Soft Tissue Mobility Assessment Moderate tone with tenderness to palpation 4/4: Palpation not allowed along left proximal medial calf Moderate tone with tenderness to palpation 3/4: Wincing and withdraw along the rest of her left proximal calf, left piriformis, left distal hamstrings, left ITB, Left quads PT-OP-G Mobility & Gait Start: 12/02/20 16:27 Freq: Status: Active Protocol: Document 12/02/20 13:45 DCW (Rec: 12/02/20 16:47 DCW [id number]) OP Gait Assessment Gait Gait Assistance Required: Standby Assistance Assistive Devices Assistive Device Straight Cane Gait Deviations General Gait Pattern Antalgic,Lateral Trunk Lean Factors Limiting Gait Function Factors Limiting Gait Function Decreased Strength,Pain PT-OP-L Special Tests Start: 12/02/20 16:27 Freq: Status: Active Protocol: Document 12/02/20 13:45 DCW (Rec: 12/02/20 16:47 DCW [id number]) Special Tests Knee Special Tests Varus- 0 Degrees Test Results Negative Valgus- 0 Degrees Test Results Negative Posterior Draw Test Results Negative Anterior Draw Test Results Negative PT-OP-M Strength Start: 12/02/20 16:27 Freq: Status: Active Protocol: Document 12/02/20 13:45 DCW (Rec: 12/02/20 16:47 DCW [id number]) Ankle/Foot Strength Ankle and Foot Manual Muscle Testing Left Comments Plantarflexion with extended knee 4/5, Minimal pain Plantarflexion with flexed knee 1/5, Severe pain PT-OP-Q Treatments Start: 12/02/20 16:27 Freq: Status: Active Protocol: Document 12/30/20 11:58 DCW (Rec: 12/30/20 12:42 DCW [id number]) Therapeutic Exercises Sitting Exercises 4 Sitting Exercise Name Hamstring curl Side bilateral Resistance Lv 2 Equipment Used T-band 3 Sitting Exercise Name 4-way Ankle Flexion Side bilateral Resistance Lv 3 Equipment Used T-band 2 Sitting Exercise Name Soleus stretching Side left Comments manual 1 Sitting Exercise Name Seated piriformis stretch Side left Manual Therapy Treatment Soft Tissue Mobilization Soleus Body Location L Soleus Mobilization Type Strumming,Sustained Pressure Intensity/Depth Moderate Body Position Sitting Low back Body Location L QL, Piriformsi, Paraspinals Mobilization Type Strumming,Sustained Pressure Intensity/Depth Moderate Body Position Sidelying PT-OP-R Modalities Start: 12/02/20 16:27 Freq: Status: Active Protocol: Document 12/08/20 09:51 DCW (Rec: 12/08/20 10:33 DCW [id number]) Ultrasound Therapy Treatment Left Medial Proximal Leg Treatment Duration (minutes) 8 Patient Position Sitting Coupling Medium Ultrasound Gel Applicator Size (cm2) 5 Frequency Setting (mHz) 1 Duty Cycle 100% PT-OP-T Assessment and Plan Start: 12/02/20 16:27 Freq: Status: Active Protocol: Document 12/30/20 11:58 DCW (Rec: 12/30/20 12:42 DCW [id number]) Physical Therapy Assessment Impairments Impairments Activity Tolerance,Edema, Functional Activities, Functional Mobility,Gait,Pain, Soft Tissue Mobility,Strength Goals Three Impairment Pt scores a 41.75% function on the Lower Extremity Functional Scale Assisted Goal (LTG) Pt to increase LEFS score at least 21 points to 67.5% to show improved function with daily activity LTG Duration 02/02/21 Two Impairment Pt's daily walks have declined from one mile to ~100' Size Cutter Goal (LTG) Pt to return to walking one mile with her friend without left leg pain in order to return to her preferred daily exercise LTG Duration 02/02/21 One Impairment Pt does not have an appropriate HEP Short Term Goal (STG) Pt to be independent and compliant with an appropriate HEP STG Duration 01/02/21 Assessment Summary Assessment Pt showing some significant improvement since last week, noticeable decrease in tone and pain level. Continue with planned therapy to improve gait and continued decreased pain. Physical Therapy Plan Frequency and Duration Frequency of Treatment 2x/Week Duration of Treatment Two months Plan of Care Start Date 12/02/20 Plan of Care End Date 02/02/21 Therapeutic Interventions Therapeutic Interventions Aquatic Therapy,Gait Training, Home Exercise Program,Joint Mobilizations,Manual Therapy, Neuromuscular Re-education, Patient/Caregiver Education, Self-Care/Home Management,Soft Tissue Mobilization,Taping, Therapeutic Exercises Modalities Cold Pack/Ice Massage,Electric Stimulation,Hot Packs, Ultrasound Next Visit Focus/Plan Next Note Type Treatment Note Next Visit Plan Flexibility, strengthening, modalities
--- NOTE | 2021-01-11 15:59 | PT.OTN ---
Current Diagnoses Pain in left hip (01/11/21) Pain in left knee (01/11/21) Pain in left leg (01/11/21) Pain in left lower leg (01/11/21) Other abnormalities of gait and mobility (01/11/21) Strain of muscle, fascia and tendon of the posterior muscle group at thigh level, right thigh, initial encounter (01/11/21) Strain of muscle, fascia and tendon of the posterior muscle group at thigh level, right thigh, subsequent encounter (01/11/21) Physical Therapy Treatment Note PT-OP-A Visit Information Start: 12/02/20 16:27 Freq: Status: Active Protocol: Document 01/11/21 15:15 DCW (Rec: 01/11/21 15:59 DCW [id number]) Out-Patient Physical Therapy Visit Information Visit Information Visit Type Treatment Note Visit Start Time 15:15 Visit Stop Time 16:00 Total Visit Minutes 45 Visit Number 7 Number of OB/GYN NURSE Visits 0 Evaluation Information Evaluation Date 12/02/20 PT-OP-B Current Condition Start: 12/02/20 16:27 Freq: Status: Active Protocol: Document 12/02/20 13:45 DCW (Rec: 12/02/20 16:38 DCW [id number]) Current Condition History of Current Condition Onset Date 8 weeks Current Complaints Severe left leg pain, worsening left hip and right leg pain History of Current Condition Pt is a 74 year old female well known to this clinic presenting with an eight week history of worsening lower extremity pain. Pt reports it began when she was out walking with a friend, the we going up an incline, and pt suddenly experienced significant pain in left medial calf. Pt initially just went home and elevated it with ice, but then was worried about a DVT due to the location of her pain, so she went to the ED. Pt reports her US was negative, and her PCP feels it is strictly a musculoskeletal injury of the knee. Over the last 1-2 weeks, pt has been having worsening pain in her left hip now, as well as her right knee. Pt does have a history of back problems, so she also made an appointment with Dr Yoder for a spinal injection, but could not get in until February. Pt also feels like her ankles have been swelling the past week. PT-OP-C Subjective Start: 12/02/20 16:27 Freq: Status: Active Protocol: Document 01/11/21 15:15 DCW (Rec: 01/11/21 15:59 DCW [id number]) OP-PT Subjective Patient Comments Patient Comments I think I'm better, but I'm still having pain in my knee. PT-OP-F Manual Assessment Start: 12/02/20 16:27 Freq: Status: Active Protocol: Document 12/02/20 13:45 DCW (Rec: 12/02/20 16:47 DCW [id number]) Manual Assessments Soft Tissue Assessment Soft Tissue Mobility Assessment Moderate tone with tenderness to palpation 4/4: Palpation not allowed along left proximal medial calf Moderate tone with tenderness to palpation 3/4: Wincing and withdraw along the rest of her left proximal calf, left piriformis, left distal hamstrings, left ITB, Left quads PT-OP-G Mobility & Gait Start: 12/02/20 16:27 Freq: Status: Active Protocol: Document 12/02/20 13:45 DCW (Rec: 12/02/20 16:47 DCW [id number]) OP Gait Assessment Gait Gait Assistance Required: Standby Assistance Assistive Devices Assistive Device Straight Cane Gait Deviations General Gait Pattern Antalgic,Lateral Trunk Lean Factors Limiting Gait Function Factors Limiting Gait Function Decreased Strength,Pain PT-OP-L Special Tests Start: 12/02/20 16:27 Freq: Status: Active Protocol: Document 12/02/20 13:45 DCW (Rec: 12/02/20 16:47 DCW [id number]) Special Tests Knee Special Tests Varus- 0 Degrees Test Results Negative Valgus- 0 Degrees Test Results Negative Posterior Draw Test Results Negative Anterior Draw Test Results Negative PT-OP-M Strength Start: 12/02/20 16:27 Freq: Status: Active Protocol: Document 12/02/20 13:45 DCW (Rec: 12/02/20 16:47 DCW [id number]) Ankle/Foot Strength Ankle and Foot Manual Muscle Testing Left Comments Plantarflexion with extended knee 4/5, Minimal pain Plantarflexion with flexed knee 1/5, Severe pain PT-OP-Q Treatments Start: 12/02/20 16:27 Freq: Status: Active Protocol: Document 01/11/21 15:15 DCW (Rec: 01/11/21 15:59 DCW [id number]) Therapeutic Exercises Sitting Exercises 4 Sitting Exercise Name Hamstring curl Side bilateral Resistance Lv 2 Equipment Used T-band 3 Sitting Exercise Name 4-way Ankle Flexion Side bilateral Resistance Lv 3 Equipment Used T-band 2 Sitting Exercise Name Soleus stretching Side left Comments manual Manual Therapy Treatment Soft Tissue Mobilization Soleus Body Location L Soleus Mobilization Type Strumming,Sustained Pressure Intensity/Depth Moderate Body Position Sitting Low back Body Location L QL, Piriformsi, Paraspinals Mobilization Type Strumming,Sustained Pressure Intensity/Depth Moderate Body Position Sidelying PT-OP-R Modalities Start: 12/02/20 16:27 Freq: Status: Active Protocol: Document 12/08/20 09:51 DCW (Rec: 12/08/20 10:33 DCW [id number]) Ultrasound Therapy Treatment Left Medial Proximal Leg Treatment Duration (minutes) 8 Patient Position Sitting Coupling Medium Ultrasound Gel Applicator Size (cm2) 5 Frequency Setting (mHz) 1 Duty Cycle 100% PT-OP-T Assessment and Plan Start: 12/02/20 16:27 Freq: Status: Active Protocol: Document 01/11/21 15:15 DCW (Rec: 01/11/21 15:59 DCW [id number]) Physical Therapy Assessment Impairments Impairments Activity Tolerance,Edema, Functional Activities, Functional Mobility,Gait,Pain, Soft Tissue Mobility,Strength Goals Three Impairment Pt scores a 41.75% function on the Lower Extremity Functional Scale [place] Goal (LTG) Pt to increase LEFS score at least 21 points to 67.5% to show improved function with daily activity LTG Duration 02/02/21 Two Impairment Pt's daily walks have declined from one mile to ~100' [place] Goal (LTG) Pt to return to walking one mile with her friend without left leg pain in order to return to her preferred daily exercise LTG Duration 02/02/21 One Impairment Pt does not have an appropriate HEP Short Term Goal (STG) Pt to be independent and compliant with an appropriate HEP STG Duration 01/02/21 Assessment Summary Assessment Pt may be showing some signs of beginning to plateau, discussed return to PCP to discuss next possible step, but pt will still likely benefit from a few more PT appointments to ensure she has reached highest functional level. Physical Therapy Plan Frequency and Duration Frequency of Treatment 2x/Week Duration of Treatment Two months Plan of Care Start Date 12/02/20 Plan of Care End Date 02/02/21 Therapeutic Interventions Therapeutic Interventions Aquatic Therapy,Gait Training, Home Exercise Program,Joint Mobilizations,Manual Therapy, Neuromuscular Re-education, Patient/Caregiver Education, Self-Care/Home Management,Soft Tissue Mobilization,Taping, Therapeutic Exercises Modalities Cold Pack/Ice Massage,Electric Stimulation,Hot Packs, Ultrasound Next Visit Focus/Plan Next Note Type Treatment Note Next Visit Plan Flexibility, strengthening, modalities
--- NOTE | 2021-01-16 11:59 | PT.OTN ---
Current Diagnoses Pain in left hip (01/16/21) Pain in left knee (01/16/21) Pain in left leg (01/16/21) Pain in left lower leg (01/16/21) Other abnormalities of gait and mobility (01/16/21) Strain of muscle, fascia and tendon of the posterior muscle group at thigh level, right thigh, initial encounter (01/16/21) Strain of muscle, fascia and tendon of the posterior muscle group at thigh level, right thigh, subsequent encounter (01/16/21) Physical Therapy Treatment Note PT-OP-A Visit Information Start: 12/02/20 16:27 Freq: Status: Active Protocol: Document 01/16/21 11:15 DCW (Rec: 01/16/21 11:59 DCW [id number]) Out-Patient Physical Therapy Visit Information Visit Information Visit Type Treatment Note Visit Start Time 11:15 Visit Stop Time 12:00 Total Visit Minutes 45 Visit Number 8 Number of HAND LACER Visits 0 Evaluation Information Evaluation Date 12/02/20 PT-OP-B Current Condition Start: 12/02/20 16:27 Freq: Status: Active Protocol: Document 12/02/20 13:45 DCW (Rec: 12/02/20 16:38 DCW [id number]) Current Condition History of Current Condition Onset Date 8 weeks Current Complaints Severe left leg pain, worsening left hip and right leg pain History of Current Condition Pt is a 74 year old female well known to this clinic presenting with an eight week history of worsening lower extremity pain. Pt reports it began when she was out walking with a friend, the we going up an incline, and pt suddenly experienced significant pain in left medial calf. Pt initially just went home and elevated it with ice, but then was worried about a DVT due to the location of her pain, so she went to the ED. Pt reports her US was negative, and her PCP feels it is strictly a musculoskeletal injury of the knee. Over the last 1-2 weeks, pt has been having worsening pain in her left hip now, as well as her right knee. Pt does have a history of back problems, so she also made an appointment with Dr Yoder for a spinal injection, but could not get in until February. Pt also feels like her ankles have been swelling the past week. PT-OP-C Subjective Start: 12/02/20 16:27 Freq: Status: Active Protocol: Document 01/16/21 11:15 DCW (Rec: 01/16/21 11:59 DCW [id number]) OP-PT Subjective Patient Comments Patient Comments It didn't hurt as much this weekend. PT-OP-F Manual Assessment Start: 12/02/20 16:27 Freq: Status: Active Protocol: Document 12/02/20 13:45 DCW (Rec: 12/02/20 16:47 DCW [id number]) Manual Assessments Soft Tissue Assessment Soft Tissue Mobility Assessment Moderate tone with tenderness to palpation 4/4: Palpation not allowed along left proximal medial calf Moderate tone with tenderness to palpation 3/4: Wincing and withdraw along the rest of her left proximal calf, left piriformis, left distal hamstrings, left ITB, Left quads PT-OP-G Mobility & Gait Start: 12/02/20 16:27 Freq: Status: Active Protocol: Document 12/02/20 13:45 DCW (Rec: 12/02/20 16:47 DCW [id number]) OP Gait Assessment Gait Gait Assistance Required: Standby Assistance Assistive Devices Assistive Device Straight Cane Gait Deviations General Gait Pattern Antalgic,Lateral Trunk Lean Factors Limiting Gait Function Factors Limiting Gait Function Decreased Strength,Pain PT-OP-L Special Tests Start: 12/02/20 16:27 Freq: Status: Active Protocol: Document 12/02/20 13:45 DCW (Rec: 12/02/20 16:47 DCW [id number]) Special Tests Knee Special Tests Varus- 0 Degrees Test Results Negative Valgus- 0 Degrees Test Results Negative Posterior Draw Test Results Negative Anterior Draw Test Results Negative PT-OP-M Strength Start: 12/02/20 16:27 Freq: Status: Active Protocol: Document 12/02/20 13:45 DCW (Rec: 12/02/20 16:47 DCW [id number]) Ankle/Foot Strength Ankle and Foot Manual Muscle Testing Left Comments Plantarflexion with extended knee 4/5, Minimal pain Plantarflexion with flexed knee 1/5, Severe pain PT-OP-Q Treatments Start: 12/02/20 16:27 Freq: Status: Active Protocol: Document 01/16/21 11:15 DCW (Rec: 01/16/21 11:59 DCW [id number]) Therapeutic Exercises Sitting Exercises 4 Sitting Exercise Name Hamstring curl Side bilateral Resistance Lv 2 Equipment Used T-band 3 Sitting Exercise Name 4-way Ankle Flexion Side bilateral Resistance Lv 3 Equipment Used T-band 2 Sitting Exercise Name Soleus stretching Side left Comments manual Manual Therapy Treatment Soft Tissue Mobilization Soleus Body Location L Soleus Mobilization Type Strumming,Sustained Pressure Intensity/Depth Moderate Body Position Sitting Low back Body Location L QL, Piriformsi, Paraspinals Mobilization Type Strumming,Sustained Pressure Intensity/Depth Moderate Body Position Sidelying PT-OP-R Modalities Start: 12/02/20 16:27 Freq: Status: Active Protocol: Document 12/08/20 09:51 DCW (Rec: 12/08/20 10:33 DCW [id number]) Ultrasound Therapy Treatment Left Medial Proximal Leg Treatment Duration (minutes) 8 Patient Position Sitting Coupling Medium Ultrasound Gel Applicator Size (cm2) 5 Frequency Setting (mHz) 1 Duty Cycle 100% PT-OP-T Assessment and Plan Start: 12/02/20 16:27 Freq: Status: Active Protocol: Document 01/16/21 11:15 DCW (Rec: 01/16/21 11:59 DCW [id number]) Physical Therapy Assessment Impairments Impairments Activity Tolerance,Edema, Functional Activities, Functional Mobility,Gait,Pain, Soft Tissue Mobility,Strength Goals Three Impairment Pt scores a 41.75% function on the Lower Extremity Functional Scale [facility] Goal (LTG) Pt to increase LEFS score at least 21 points to 67.5% to show improved function with daily activity LTG Duration 02/02/21 Two Impairment Pt's daily walks have declined from one mile to ~100' Nursing Home Goal (LTG) Pt to return to walking one mile with her friend without left leg pain in order to return to her preferred daily exercise LTG Duration 02/02/21 One Impairment Pt does not have an appropriate HEP Short Term Goal (STG) Pt to be independent and compliant with an appropriate HEP STG Duration 01/02/21 Assessment Summary Assessment Pt making some slight progress , but still having fairly significant pain during daily life. Physical Therapy Plan Frequency and Duration Frequency of Treatment 2x/Week Duration of Treatment Two months Plan of Care Start Date 12/02/20 Plan of Care End Date 02/02/21 Therapeutic Interventions Therapeutic Interventions Aquatic Therapy,Gait Training, Home Exercise Program,Joint Mobilizations,Manual Therapy, Neuromuscular Re-education, Patient/Caregiver Education, Self-Care/Home Management,Soft Tissue Mobilization,Taping, Therapeutic Exercises Modalities Cold Pack/Ice Massage,Electric Stimulation,Hot Packs, Ultrasound Next Visit Focus/Plan Next Note Type Treatment Note Next Visit Plan Flexibility, strengthening, modalities
--- NOTE | 2021-01-23 11:13 | PT.OTN ---
Current Diagnoses Pain in left hip (01/23/21) Pain in left knee (01/23/21) Pain in left leg (01/23/21) Pain in left lower leg (01/23/21) Other abnormalities of gait and mobility (01/23/21) Strain of muscle, fascia and tendon of the posterior muscle group at thigh level, right thigh, initial encounter (01/23/21) Strain of muscle, fascia and tendon of the posterior muscle group at thigh level, right thigh, subsequent encounter (01/23/21) Physical Therapy Treatment Note PT-OP-A Visit Information Start: 12/02/20 16:27 Freq: Status: Active Protocol: Document 01/23/21 10:30 DCW (Rec: 01/23/21 11:13 DCW [id number]) Out-Patient Physical Therapy Visit Information Visit Information Visit Type Treatment Note Visit Start Time 10:30 Visit Stop Time 11:15 Total Visit Minutes 45 Visit Number 9 Number of SALES ARCHITECT Visits 0 Evaluation Information Evaluation Date 12/02/20 PT-OP-B Current Condition Start: 12/02/20 16:27 Freq: Status: Active Protocol: Document 12/02/20 13:45 DCW (Rec: 12/02/20 16:38 DCW [id number]) Current Condition History of Current Condition Onset Date 8 weeks Current Complaints Severe left leg pain, worsening left hip and right leg pain History of Current Condition Pt is a 74 year old female well known to this clinic presenting with an eight week history of worsening lower extremity pain. Pt reports it began when she was out walking with a friend, the we going up an incline, and pt suddenly experienced significant pain in left medial calf. Pt initially just went home and elevated it with ice, but then was worried about a DVT due to the location of her pain, so she went to the ED. Pt reports her US was negative, and her PCP feels it is strictly a musculoskeletal injury of the knee. Over the last 1-2 weeks, pt has been having worsening pain in her left hip now, as well as her right knee. Pt does have a history of back problems, so she also made an appointment with Dr Yoder for a spinal injection, but could not get in until February. Pt also feels like her ankles have been swelling the past week. PT-OP-C Subjective Start: 12/02/20 16:27 Freq: Status: Active Protocol: Document 01/23/21 10:30 DCW (Rec: 01/23/21 11:13 DCW [id number]) OP-PT Subjective Patient Comments Patient Comments Reports she is doing better, walking without the cane when she can help it. Reports she feels better during the day, still pretty sore at night. Has an appointment with Beba later this week. PT-OP-F Manual Assessment Start: 12/02/20 16:27 Freq: Status: Active Protocol: Document 12/02/20 13:45 DCW (Rec: 12/02/20 16:47 DCW [id number]) Manual Assessments Soft Tissue Assessment Soft Tissue Mobility Assessment Moderate tone with tenderness to palpation 4/4: Palpation not allowed along left proximal medial calf Moderate tone with tenderness to palpation 3/4: Wincing and withdraw along the rest of her left proximal calf, left piriformis, left distal hamstrings, left ITB, Left quads PT-OP-G Mobility & Gait Start: 12/02/20 16:27 Freq: Status: Active Protocol: Document 12/02/20 13:45 DCW (Rec: 12/02/20 16:47 DCW [id number]) OP Gait Assessment Gait Gait Assistance Required: Standby Assistance Assistive Devices Assistive Device Straight Cane Gait Deviations General Gait Pattern Antalgic,Lateral Trunk Lean Factors Limiting Gait Function Factors Limiting Gait Function Decreased Strength,Pain PT-OP-L Special Tests Start: 12/02/20 16:27 Freq: Status: Active Protocol: Document 12/02/20 13:45 DCW (Rec: 12/02/20 16:47 DCW [id number]) Special Tests Knee Special Tests Varus- 0 Degrees Test Results Negative Valgus- 0 Degrees Test Results Negative Posterior Draw Test Results Negative Anterior Draw Test Results Negative PT-OP-M Strength Start: 12/02/20 16:27 Freq: Status: Active Protocol: Document 12/02/20 13:45 DCW (Rec: 12/02/20 16:47 DCW [id number]) Ankle/Foot Strength Ankle and Foot Manual Muscle Testing Left Comments Plantarflexion with extended knee 4/5, Minimal pain Plantarflexion with flexed knee 1/5, Severe pain PT-OP-Q Treatments Start: 12/02/20 16:27 Freq: Status: Active Protocol: Document 01/23/21 10:30 DCW (Rec: 01/23/21 11:13 DCW [id number]) Therapeutic Exercises Sitting Exercises 4 Sitting Exercise Name Hamstring curl Side bilateral Resistance Lv 3 Equipment Used T-band 3 Sitting Exercise Name 4-way Ankle Flexion Side bilateral Resistance Lv 3 Equipment Used T-band 2 Sitting Exercise Name Soleus stretching Side left Comments manual Manual Therapy Treatment Soft Tissue Mobilization Soleus Body Location L Soleus Mobilization Type Strumming,Sustained Pressure Intensity/Depth Moderate Body Position Sitting Low back Body Location L QL, Piriformis, Paraspinals Mobilization Type Strumming,Sustained Pressure Intensity/Depth Moderate Body Position Sidelying PT-OP-R Modalities Start: 12/02/20 16:27 Freq: Status: Active Protocol: Document 12/08/20 09:51 DCW (Rec: 12/08/20 10:33 DCW [id number]) Ultrasound Therapy Treatment Left Medial Proximal Leg Treatment Duration (minutes) 8 Patient Position Sitting Coupling Medium Ultrasound Gel Applicator Size (cm2) 5 Frequency Setting (mHz) 1 Duty Cycle 100% PT-OP-T Assessment and Plan Start: 12/02/20 16:27 Freq: Status: Active Protocol: Document 01/23/21 10:30 DCW (Rec: 01/23/21 11:13 DCW [id number]) Physical Therapy Assessment Impairments Impairments Activity Tolerance,Edema, Functional Activities, Functional Mobility,Gait,Pain, Soft Tissue Mobility,Strength Goals Three Impairment Pt scores a 41.75% function on the Lower Extremity Functional Scale Floatman Goal (LTG) Pt to increase LEFS score at least 21 points to 67.5% to show improved function with daily activity LTG Duration 02/02/21 Two Impairment Pt's daily walks have declined from one mile to ~100' Floatman Goal (LTG) Pt to return to walking one mile with her friend without left leg pain in order to return to her preferred daily exercise LTG Duration 02/02/21 One Impairment Pt does not have an appropriate HEP Short Term Goal (STG) Pt to be independent and compliant with an appropriate HEP STG Duration 01/02/21 Assessment Summary Assessment Pt making slow but consistent progress, still very tender to palpation. Physical Therapy Plan Frequency and Duration Frequency of Treatment 2x/Week Duration of Treatment Two months Plan of Care Start Date 12/02/20 Plan of Care End Date 02/02/21 Therapeutic Interventions Therapeutic Interventions Aquatic Therapy,Gait Training, Home Exercise Program,Joint Mobilizations,Manual Therapy, Neuromuscular Re-education, Patient/Caregiver Education, Self-Care/Home Management,Soft Tissue Mobilization,Taping, Therapeutic Exercises Modalities Cold Pack/Ice Massage,Electric Stimulation,Hot Packs, Ultrasound Next Visit Focus/Plan Next Note Type Treatment Note Next Visit Plan Flexibility, strengthening, modalities
--- NOTE | 2021-02-02 15:50 | PT.OTN ---
Current Diagnoses Pain in left hip (02/02/21) Pain in left knee (02/02/21) Pain in left leg (02/02/21) Pain in left lower leg (02/02/21) Other abnormalities of gait and mobility (02/02/21) Strain of muscle, fascia and tendon of the posterior muscle group at thigh level, right thigh, initial encounter (02/02/21) Strain of muscle, fascia and tendon of the posterior muscle group at thigh level, right thigh, subsequent encounter (02/02/21) Physical Therapy Treatment Note PT-OP-A Visit Information Start: 12/02/20 16:27 Freq: Status: Active Protocol: Document 02/02/21 15:15 DCW (Rec: 02/02/21 15:19 DCW [id number]) Out-Patient Physical Therapy Visit Information Visit Information Visit Type Progress Note Visit Start Time 15:15 Visit Stop Time 13:50 Total Visit Minutes 35 Visit Number 10 Number of PETROLEUM LABORATORY TECHNICIAN Visits 0 Evaluation Information Evaluation Date 12/02/20 PT-OP-B Current Condition Start: 12/02/20 16:27 Freq: Status: Active Protocol: Document 12/02/20 13:45 DCW (Rec: 12/02/20 16:38 DCW [id number]) Current Condition History of Current Condition Onset Date 8 weeks Current Complaints Severe left leg pain, worsening left hip and right leg pain History of Current Condition Pt is a 74 year old female well known to this clinic presenting with an eight week history of worsening lower extremity pain. Pt reports it began when she was out walking with a friend, the we going up an incline, and pt suddenly experienced significant pain in left medial calf. Pt initially just went home and elevated it with ice, but then was worried about a DVT due to the location of her pain, so she went to the ED. Pt reports her US was negative, and her PCP feels it is strictly a musculoskeletal injury of the knee. Over the last 1-2 weeks, pt has been having worsening pain in her left hip now, as well as her right knee. Pt does have a history of back problems, so she also made an appointment with Dr Yoder for a spinal injection, but could not get in until February. Pt also feels like her ankles have been swelling the past week. PT-OP-C Subjective Start: 12/02/20 16:27 Freq: Status: Active Protocol: Document 02/02/21 15:15 DCW (Rec: 02/02/21 15:19 DCW [id number]) OP-PT Subjective Patient Comments Patient Comments Pt reports she got imaging done yesterday, reports she has patellofemoral OA and a bone spur, and got an injection. [place] a alittle better just due to anesthesia, but still pretty sore now this morning. PT-OP-F Manual Assessment Start: 12/02/20 16:27 Freq: Status: Active Protocol: Document 02/02/21 15:15 DCW (Rec: 02/02/21 15:23 DCW [id number]) Manual Assessments Soft Tissue Assessment Soft Tissue Mobility Assessment Moderate tone with tenderness to palpation 2/4: Pain with wincing along left proximal calf, left piriformis, left distal hamstrings PT-OP-G Mobility & Gait Start: 12/02/20 16:27 Freq: Status: Active Protocol: Document 02/02/21 15:15 DCW (Rec: 02/02/21 15:23 DCW [id number]) OP Gait Assessment Gait Gait Assistance Required: Independent Assistive Devices Assistive Device None Gait Deviations General Gait Pattern Antalgic Factors Limiting Gait Function Factors Limiting Gait Function Pain PT-OP-L Special Tests Start: 12/02/20 16:27 Freq: Status: Active Protocol: Document 12/02/20 13:45 DCW (Rec: 12/02/20 16:47 DCW [id number]) Special Tests Knee Special Tests Varus- 0 Degrees Test Results Negative Valgus- 0 Degrees Test Results Negative Posterior Draw Test Results Negative Anterior Draw Test Results Negative PT-OP-M Strength Start: 12/02/20 16:27 Freq: Status: Active Protocol: Document 02/02/21 15:15 DCW (Rec: 02/02/21 15:23 DCW [id number]) Ankle/Foot Strength Ankle and Foot Manual Muscle Testing Left Comments Plantarflexion with extended knee 4/5, Minimal pain Plantarflexion with flexed knee 4/5, Severe pain PT-OP-Q Treatments Start: 12/02/20 16:27 Freq: Status: Active Protocol: Document 02/02/21 15:15 DCW (Rec: 02/02/21 15:50 DCW [id number]) Manual Therapy Treatment Soft Tissue Mobilization Soleus Body Location L Soleus Mobilization Type Strumming,Sustained Pressure Intensity/Depth Moderate Body Position Sitting Low back Body Location L QL, Piriformis, Paraspinals Mobilization Type Strumming,Sustained Pressure Intensity/Depth Moderate Body Position Sidelying PT-OP-R Modalities Start: 12/02/20 16:27 Freq: Status: Active Protocol: Document 12/08/20 09:51 DCW (Rec: 12/08/20 10:33 DCW [id number]) Ultrasound Therapy Treatment Left Medial Proximal Leg Treatment Duration (minutes) 8 Patient Position Sitting Coupling Medium Ultrasound Gel Applicator Size (cm2) 5 Frequency Setting (mHz) 1 Duty Cycle 100% PT-OP-T Assessment and Plan Start: 12/02/20 16:27 Freq: Status: Active Protocol: Document 02/02/21 15:15 DCW (Rec: 02/02/21 15:50 DCW [id number]) Physical Therapy Assessment Impairments Impairments Activity Tolerance,Edema, Functional Activities, Functional Mobility,Gait,Pain, Soft Tissue Mobility,Strength Goals Three Impairment Pt scores a 41.75% function on the Lower Extremity Functional Scale Lockstitch Zipper Setter Goal (LTG) Pt to increase LEFS score at least 21 points to 67.5% to show improved function with daily activity LTG Duration 03/04/21 Two Impairment Pt's daily walks have declined from one mile to ~100' Assisted Goal (LTG) Pt to return to walking one mile with her friend without left leg pain in order to return to her preferred daily exercise LTG Duration 03/04/21 One Impairment Pt does not have an appropriate HEP Short Term Goal (STG) Pt to be independent and compliant with an appropriate HEP STG Duration 03/04/21 Assessment Summary Assessment Pt feeling much better following recent injection from Dr Yoder, tolerating STM with much less tenderness. Pt agreeable with continuing therapy for next few scheduled visits to make sure she has reached her plateau. Physical Therapy Plan Frequency and Duration Frequency of Treatment 2x/Week Duration of Treatment One month Plan of Care Start Date 02/02/21 Plan of Care End Date 03/04/21 Therapeutic Interventions Therapeutic Interventions Aquatic Therapy,Gait Training, Home Exercise Program,Joint Mobilizations,Manual Therapy, Neuromuscular Re-education, Patient/Caregiver Education, Self-Care/Home Management,Soft Tissue Mobilization,Taping, Therapeutic Exercises Modalities Cold Pack/Ice Massage,Electric Stimulation,Hot Packs, Ultrasound Next Visit Focus/Plan Next Note Type Treatment Note Next Visit Plan Flexibility, strengthening, modalities
--- NOTE | 2021-02-02 15:51 | PT.OPPOC ---
Physical, Occupational & Speech Therapy At [facility] Current Diagnoses Pain in left hip (02/02/21) Pain in left knee (02/02/21) Pain in left leg (02/02/21) Pain in left lower leg (02/02/21) Other abnormalities of gait and mobility (02/02/21) Strain of muscle, fascia and tendon of the posterior muscle group at thigh level, right thigh, initial encounter (02/02/21) Strain of muscle, fascia and tendon of the posterior muscle group at thigh level, right thigh, subsequent encounter (02/02/21) Visit Care Team Role Provider Type Sylvie Roy DO Attending Provider Physician Family Provider Primary Care Provider Referring Provider Specialty: Family Practice Address: [address] [place] [address], [facility] Email: [email or web address] Plan Of Care PT-OP-T Assessment and Plan Start: 12/02/20 16:27 Freq: Status: Active Protocol: Document 02/02/21 15:15 DCW (Rec: 02/02/21 15:50 DCW [id number]) Physical Therapy Assessment Impairments Impairments Activity Tolerance,Edema, Functional Activities, Functional Mobility,Gait,Pain, Soft Tissue Mobility,Strength Goals Three Impairment Pt scores a 41.75% function on the Lower Extremity Functional Scale Cupola Repairer Goal (LTG) Pt to increase LEFS score at least 21 points to 67.5% to show improved function with daily activity LTG Duration 03/04/21 Two Impairment Pt's daily walks have declined from one mile to ~100' Cupola Repairer Goal (LTG) Pt to return to walking one mile with her friend without left leg pain in order to return to her preferred daily exercise LTG Duration 03/04/21 One Impairment Pt does not have an appropriate HEP Short Term Goal (STG) Pt to be independent and compliant with an appropriate HEP STG Duration 03/04/21 Assessment Summary Assessment Pt feeling much better following recent injection from Dr Yoder, tolerating STM with much less tenderness. Pt agreeable with continuing therapy for next few scheduled visits to make sure she has reached her plateau. Physical Therapy Plan Frequency and Duration Frequency of Treatment 2x/Week Duration of Treatment One month Plan of Care Start Date 02/02/21 Plan of Care End Date 03/04/21 Therapeutic Interventions Therapeutic Interventions Aquatic Therapy,Gait Training, Home Exercise Program,Joint Mobilizations,Manual Therapy, Neuromuscular Re-education, Patient/Caregiver Education, Self-Care/Home Management,Soft Tissue Mobilization,Taping, Therapeutic Exercises Modalities Cold Pack/Ice Massage,Electric Stimulation,Hot Packs, Ultrasound Next Visit Focus/Plan Next Note Type Treatment Note Next Visit Plan Flexibility, strengthening, modalities Plan of Care Dates Plan of Care Start Date 02/02/21 Plan of Care End Date 03/04/21 Electronically Signed by: Taran Elizabeth, PT 02/02/21 [id number] Please Sign and Return: I have reviewed this Plan of Care and certify that the skilled therapy services above are required to meet the patient?s needs. Physician Signature Date Printed Name and Credentials Clinical Instructor Signature Printed Name and Credentials
--- NOTE | 2021-02-07 15:14 | PT.OTN ---
Current Diagnoses Pain in left hip (02/07/21) Pain in left knee (02/07/21) Pain in left leg (02/07/21) Pain in left lower leg (02/07/21) Other abnormalities of gait and mobility (02/07/21) Strain of muscle, fascia and tendon of the posterior muscle group at thigh level, right thigh, initial encounter (02/07/21) Strain of muscle, fascia and tendon of the posterior muscle group at thigh level, right thigh, subsequent encounter (02/07/21) Physical Therapy Treatment Note PT-OP-A Visit Information Start: 12/02/20 16:27 Freq: Status: Active Protocol: Document 02/07/21 14:30 DCW (Rec: 02/07/21 15:14 DCW [id number]) Out-Patient Physical Therapy Visit Information Visit Information Visit Type Treatment Note Visit Start Time 14:30 Visit Stop Time 15:15 Total Visit Minutes 45 Visit Number 11 Number of MEDICAL NURSE Visits 0 Evaluation Information Evaluation Date 12/02/20 PT-OP-B Current Condition Start: 12/02/20 16:27 Freq: Status: Active Protocol: Document 12/02/20 13:45 DCW (Rec: 12/02/20 16:38 DCW [id number]) Current Condition History of Current Condition Onset Date 8 weeks Current Complaints Severe left leg pain, worsening left hip and right leg pain History of Current Condition Pt is a 74 year old female well known to this clinic presenting with an eight week history of worsening lower extremity pain. Pt reports it began when she was out walking with a friend, the we going up an incline, and pt suddenly experienced significant pain in left medial calf. Pt initially just went home and elevated it with ice, but then was worried about a DVT due to the location of her pain, so she went to the ED. Pt reports her US was negative, and her PCP feels it is strictly a musculoskeletal injury of the knee. Over the last 1-2 weeks, pt has been having worsening pain in her left hip now, as well as her right knee. Pt does have a history of back problems, so she also made an appointment with Dr Yoder for a spinal injection, but could not get in until February. Pt also feels like her ankles have been swelling the past week. PT-OP-C Subjective Start: 12/02/20 16:27 Freq: Status: Active Protocol: Document 02/07/21 14:30 DCW (Rec: 02/07/21 15:14 DCW [id number]) OP-PT Subjective Patient Comments Patient Comments Pt reports her knee has been doing a lot better since her injection, has been able to walk more without the cane. PT-OP-F Manual Assessment Start: 12/02/20 16:27 Freq: Status: Active Protocol: Document 02/02/21 15:15 DCW (Rec: 02/02/21 15:23 DCW [id number]) Manual Assessments Soft Tissue Assessment Soft Tissue Mobility Assessment Moderate tone with tenderness to palpation 2/4: Pain with wincing along left proximal calf, left piriformis, left distal hamstrings PT-OP-G Mobility & Gait Start: 12/02/20 16:27 Freq: Status: Active Protocol: Document 02/02/21 15:15 DCW (Rec: 02/02/21 15:23 DCW [id number]) OP Gait Assessment Gait Gait Assistance Required: Independent Assistive Devices Assistive Device None Gait Deviations General Gait Pattern Antalgic Factors Limiting Gait Function Factors Limiting Gait Function Pain PT-OP-L Special Tests Start: 12/02/20 16:27 Freq: Status: Active Protocol: Document 12/02/20 13:45 DCW (Rec: 12/02/20 16:47 DCW [id number]) Special Tests Knee Special Tests Varus- 0 Degrees Test Results Negative Valgus- 0 Degrees Test Results Negative Posterior Draw Test Results Negative Anterior Draw Test Results Negative PT-OP-M Strength Start: 12/02/20 16:27 Freq: Status: Active Protocol: Document 02/02/21 15:15 DCW (Rec: 02/02/21 15:23 DCW [id number]) Ankle/Foot Strength Ankle and Foot Manual Muscle Testing Left Comments Plantarflexion with extended knee 4/5, Minimal pain Plantarflexion with flexed knee 4/5, Severe pain PT-OP-Q Treatments Start: 12/02/20 16:27 Freq: Status: Active Protocol: Document 02/07/21 14:30 DCW (Rec: 02/07/21 15:14 DCW [id number]) Therapeutic Exercises Sitting Exercises 4 Sitting Exercise Name Hamstring curl Side bilateral Resistance Lv 3 Equipment Used T-band 3 Sitting Exercise Name 4-way Ankle Flexion Side bilateral Resistance Lv 3 Equipment Used T-band 2 Sitting Exercise Name Soleus stretching Side left Comments manual Manual Therapy Treatment Soft Tissue Mobilization Soleus Body Location L Soleus Mobilization Type Strumming,Sustained Pressure Intensity/Depth Moderate Body Position Sitting Low back Body Location L QL, Piriformis, Paraspinals Mobilization Type Strumming,Sustained Pressure Intensity/Depth Moderate Body Position Sidelying PT-OP-R Modalities Start: 12/02/20 16:27 Freq: Status: Active Protocol: Document 12/08/20 09:51 DCW (Rec: 12/08/20 10:33 DCW [id number]) Ultrasound Therapy Treatment Left Medial Proximal Leg Treatment Duration (minutes) 8 Patient Position Sitting Coupling Medium Ultrasound Gel Applicator Size (cm2) 5 Frequency Setting (mHz) 1 Duty Cycle 100% PT-OP-T Assessment and Plan Start: 12/02/20 16:27 Freq: Status: Active Protocol: Document 02/07/21 14:30 DCW (Rec: 02/07/21 15:14 DCW [id number]) Physical Therapy Assessment Impairments Impairments Activity Tolerance,Edema, Functional Activities, Functional Mobility,Gait,Pain, Soft Tissue Mobility,Strength Goals Three Impairment Pt scores a 41.75% function on the Lower Extremity Functional Scale Unstacker Goal (LTG) Pt to increase LEFS score at least 21 points to 67.5% to show improved function with daily activity LTG Duration 03/04/21 Two Impairment Pt's daily walks have declined from one mile to ~100' Unstacker Goal (LTG) Pt to return to walking one mile with her friend without left leg pain in order to return to her preferred daily exercise LTG Duration 03/04/21 One Impairment Pt does not have an appropriate HEP Short Term Goal (STG) Pt to be independent and compliant with an appropriate HEP STG Duration 03/04/21 Assessment Summary Assessment Pt continues to do well, will likely discharge following last scheduled appointments next week. Physical Therapy Plan Frequency and Duration Frequency of Treatment 2x/Week Duration of Treatment One month Plan of Care Start Date 02/02/21 Plan of Care End Date 03/04/21 Therapeutic Interventions Therapeutic Interventions Aquatic Therapy,Gait Training, Home Exercise Program,Joint Mobilizations,Manual Therapy, Neuromuscular Re-education, Patient/Caregiver Education, Self-Care/Home Management,Soft Tissue Mobilization,Taping, Therapeutic Exercises Modalities Cold Pack/Ice Massage,Electric Stimulation,Hot Packs, Ultrasound Next Visit Focus/Plan Next Note Type Treatment Note Next Visit Plan Flexibility, strengthening, modalities
--- NOTE | 2021-02-13 11:16 | PT.OTN ---
Current Diagnoses Pain in left hip (02/13/21) Pain in left knee (02/13/21) Pain in left leg (02/13/21) Pain in left lower leg (02/13/21) Other abnormalities of gait and mobility (02/13/21) Strain of muscle, fascia and tendon of the posterior muscle group at thigh level, right thigh, initial encounter (02/13/21) Strain of muscle, fascia and tendon of the posterior muscle group at thigh level, right thigh, subsequent encounter (02/13/21) Physical Therapy Treatment Note PT-OP-A Visit Information Start: 12/02/20 16:27 Freq: Status: Active Protocol: Document 02/13/21 10:39 DCW (Rec: 02/13/21 11:15 DCW [id number]) Out-Patient Physical Therapy Visit Information Visit Information Visit Type Treatment Note Visit Start Time 10:39 Visit Stop Time 11:17 Total Visit Minutes 38 Visit Number 12 Number of COOKER OPERATOR Visits 0 Evaluation Information Evaluation Date 12/02/20 PT-OP-B Current Condition Start: 12/02/20 16:27 Freq: Status: Active Protocol: Document 12/02/20 13:45 DCW (Rec: 12/02/20 16:38 DCW [id number]) Current Condition History of Current Condition Onset Date 8 weeks Current Complaints Severe left leg pain, worsening left hip and right leg pain History of Current Condition Pt is a 74 year old female well known to this clinic presenting with an eight week history of worsening lower extremity pain. Pt reports it began when she was out walking with a friend, the we going up an incline, and pt suddenly experienced significant pain in left medial calf. Pt initially just went home and elevated it with ice, but then was worried about a DVT due to the location of her pain, so she went to the ED. Pt reports her US was negative, and her PCP feels it is strictly a musculoskeletal injury of the knee. Over the last 1-2 weeks, pt has been having worsening pain in her left hip now, as well as her right knee. Pt does have a history of back problems, so she also made an appointment with Dr Yoder for a spinal injection, but could not get in until February. Pt also feels like her ankles have been swelling the past week. PT-OP-C Subjective Start: 12/02/20 16:27 Freq: Status: Active Protocol: Document 02/13/21 10:39 DCW (Rec: 02/13/21 11:15 DCW [id number]) OP-PT Subjective Patient Comments Patient Comments My knees hurt, but that's life. I've been putting in long days standing and doing things. PT-OP-F Manual Assessment Start: 12/02/20 16:27 Freq: Status: Active Protocol: Document 02/02/21 15:15 DCW (Rec: 02/02/21 15:23 DCW [id number]) Manual Assessments Soft Tissue Assessment Soft Tissue Mobility Assessment Moderate tone with tenderness to palpation 2/4: Pain with wincing along left proximal calf, left piriformis, left distal hamstrings PT-OP-G Mobility & Gait Start: 12/02/20 16:27 Freq: Status: Active Protocol: Document 02/02/21 15:15 DCW (Rec: 02/02/21 15:23 DCW [id number]) OP Gait Assessment Gait Gait Assistance Required: Independent Assistive Devices Assistive Device None Gait Deviations General Gait Pattern Antalgic Factors Limiting Gait Function Factors Limiting Gait Function Pain PT-OP-L Special Tests Start: 12/02/20 16:27 Freq: Status: Active Protocol: Document 12/02/20 13:45 DCW (Rec: 12/02/20 16:47 DCW [id number]) Special Tests Knee Special Tests Varus- 0 Degrees Test Results Negative Valgus- 0 Degrees Test Results Negative Posterior Draw Test Results Negative Anterior Draw Test Results Negative PT-OP-M Strength Start: 12/02/20 16:27 Freq: Status: Active Protocol: Document 02/02/21 15:15 DCW (Rec: 02/02/21 15:23 DCW [id number]) Ankle/Foot Strength Ankle and Foot Manual Muscle Testing Left Comments Plantarflexion with extended knee 4/5, Minimal pain Plantarflexion with flexed knee 4/5, Severe pain PT-OP-Q Treatments Start: 12/02/20 16:27 Freq: Status: Active Protocol: Document 02/13/21 10:39 DCW (Rec: 02/13/21 11:15 DCW [id number]) Therapeutic Exercises Sitting Exercises 4 Sitting Exercise Name Hamstring curl Side bilateral Resistance Lv 3 Equipment Used T-band 3 Sitting Exercise Name 4-way Ankle Flexion Side bilateral Resistance Lv 3 Equipment Used T-band 2 Sitting Exercise Name Soleus stretching Side left Comments manual Manual Therapy Treatment Soft Tissue Mobilization Soleus Body Location L Soleus Mobilization Type Strumming,Sustained Pressure Intensity/Depth Moderate Body Position Sitting Low back Body Location L QL, Piriformis, Paraspinals Mobilization Type Strumming,Sustained Pressure Intensity/Depth Moderate Body Position Sidelying PT-OP-R Modalities Start: 12/02/20 16:27 Freq: Status: Active Protocol: Document 12/08/20 09:51 DCW (Rec: 12/08/20 10:33 DCW [id number]) Ultrasound Therapy Treatment Left Medial Proximal Leg Treatment Duration (minutes) 8 Patient Position Sitting Coupling Medium Ultrasound Gel Applicator Size (cm2) 5 Frequency Setting (mHz) 1 Duty Cycle 100% PT-OP-T Assessment and Plan Start: 12/02/20 16:27 Freq: Status: Active Protocol: Document 02/13/21 10:39 DCW (Rec: 02/13/21 11:15 DCW [id number]) Physical Therapy Assessment Impairments Impairments Activity Tolerance,Edema, Functional Activities, Functional Mobility,Gait,Pain, Soft Tissue Mobility,Strength Goals Three Impairment Pt scores a 41.75% function on the Lower Extremity Functional Scale Contract Negotiation Specialist Goal (LTG) Pt to increase LEFS score at least 21 points to 67.5% to show improved function with daily activity LTG Duration 03/04/21 Two Impairment Pt's daily walks have declined from one mile to ~100' Contract Negotiation Specialist Goal (LTG) Pt to return to walking one mile with her friend without left leg pain in order to return to her preferred daily exercise LTG Duration 03/04/21 One Impairment Pt does not have an appropriate HEP Short Term Goal (STG) Pt to be independent and compliant with an appropriate HEP STG Duration 03/04/21 Assessment Summary Assessment Pt has too much going on, her is having surgery, and would prefer at this time to just discharge. Pt will require a new referral in order to return to skilled therapy. Physical Therapy Plan Frequency and Duration Frequency of Treatment 2x/Week Duration of Treatment One month Plan of Care Start Date 02/02/21 Plan of Care End Date 03/04/21 Therapeutic Interventions Therapeutic Interventions Aquatic Therapy,Gait Training, Home Exercise Program,Joint Mobilizations,Manual Therapy, Neuromuscular Re-education, Patient/Caregiver Education, Self-Care/Home Management,Soft Tissue Mobilization,Taping, Therapeutic Exercises Modalities Cold Pack/Ice Massage,Electric Stimulation,Hot Packs, Ultrasound Discharge Physical Therapy Discharge Reasons Patient Request Next Visit Focus/Plan Next Note Type Discharge Summary
== END 2021-02-15 09:06 | disposition home or self-care (01) ==
LOC: PHYS 10:30
PROVIDERS: Family Provider Family Medicine; PCP Family Medicine; Referring Provider Family Medicine; Visit Provider Family Medicine
DX: S76.311D Strain of muscle, fascia and tendon of the posterior muscle group at thigh level, right thigh, subsequent encounter (principal); M25.552 Pain in left hip; M25.562 Pain in left knee; M79.605 Pain in left leg; M79.662 Pain in left lower leg; R26.89 Other abnormalities of gait and mobility; S76.311A Strain of muscle, fascia and tendon of the posterior muscle group at thigh level, right thigh, initial encounter
CPT/HCPCS: 97035; 97110; 97140; 97162

== ENCOUNTER 2021-03-25 08:18 | Emergency (ER) | payer MEDICARE, OTHER, SELFPAY ==
[2020-11-02 10:03] VITALS: BMI 33.1
[2021-03-25 08:23] VITALS: BP 196/86; PULSE 72; RESP 18; TEMP 36.3; O2SAT 98
--- NOTE | 2021-03-25 08:36 | ED.NEUROSD ---
HPI - Neuro Symptoms/Deficit General Chief Complaint: Head Injury Stated Complaint: Fell- [facility] concerned about brain bleed Time Seen by Provider: 03/25/21 08:22 History of Present Illness HPI Narrative: 75-year-old female nonsmoker with history of hypertension, diabetes, hyperlipidemia presents at the request of the walk-in clinic for evaluation of a fall with head injury. She states that she got her feet caught in her on Saturday and tripped and fell forward striking the right side of her face on the ground. She does not take any blood thinners, denies any loss of consciousness, has had no nausea or vomiting and denies neck pain. She has some pain and swelling overlying the cheek bone on the right side of her face and a small amount of swelling of her lower lip. She denies any blurred or double vision. states she has been acting completely normal and at her baseline and without abnormal behaviors, repetitive questioning or other concerning findings. Related Data Home Medications Medication Instructions Recorded Confirmed calcium carbonate 500 mg calcium 600 mg PO QDAY #0 05/21/17 02/01/21 (1,250 mg) chewable tablet (Calci-Chew) glimepiride 2 mg tablet 4 mg PO QAM tab 08/27/18 02/01/21 metformin 500 mg tablet,extended 1,000 mg PO DAILY tab 01/29/20 02/01/21 release 24 hr insulin glargine 100 unit/mL (3 12 unit SUBCUT DAILY 06/14/20 02/01/21 mL) subcutaneous pen (Basaglar KwikPen U-100 Insulin) sitagliptin 50 mg tablet (Januvia) 100 mg PO DAILY 06/14/20 02/01/21 cholecalciferol (vitamin D3) 125 5,000 unit PO QDAY #0 cap 09/29/20 02/01/21 mcg (5,000 unit) capsule coenzyme Q10 100 mg capsule 300 mg PO DAILY cap 09/29/20 02/01/21 (CoQ-10) Previous Rx's Medication Instructions Recorded pen needle, diabetic 31 gauge x #100 each 03/03/1810/16 (1st Tier Unifine Pentips) blood sugar diagnostic (Blood #200 each 04/20/19 Glucose Test) metoprolol tartrate 100 mg tablet 100 mg PO BID #180 tab 07/29/20 (Lopressor) escitalopram oxalate 10 mg tablet 10 mg PO QDAY #90 tab 08/23/20 (Lexapro) lidocaine 5 % topical patch 1 patch TOPICAL DAILY PRN #15 ea 10/21/20 methocarbamol 750 mg tablet 750 mg PO TID PRN #14 tab 10/21/20 amlodipine 10 mg tablet 5 mg PO DAILY #90 tab 11/11/20 gabapentin 300 mg capsule 900 mg PO BEDTIME #270 cap 11/11/20 losartan 100 mg tablet 100 mg PO BEDTIME #90 tab 11/11/20 zolpidem 10 mg tablet 5 mg PO BEDTIME PRN #45 tab 02/09/21 atorvastatin 10 mg tablet (Lipitor) 10 mg PO HS #90 tab 03/07/21 carvedilol 25 mg tablet 25 mg PO BID #60 tab 03/07/21 Allergies Allergy/AdvReac Type Severity Reaction Status Date / Time Anesthetics - Amide Type - Allergy Intermediate PROJECTILE Verified 02/01/21 16:20 Select A VOMITING [Anesthetics - Amide Type] Anesthetics - Keke Type- Allergy Intermediate PROJECTILE Verified 02/01/21 16:20 Parabens VOMITING [Anesthetics - Keke Type] Review of Systems Review of Systems Narrative: GENERAL: Denies chills, fatigue, malaise, fever, sweats. HEENT: Denies sinus pain, ear pain, sore throat, difficulty swallowing, dizziness. RESPIRATORY: Denies dyspnea, cough, wheezing, hemoptysis, sputum. CARDIOVASCULAR: Denies chest pain, palpitations, orthopnea, edema, GASTROINTESTINAL: Denies nausea, vomiting, abdominal pain, diarrhea, constipation, melena. : Denies dysuria, frequency, incontinence, hematuria, urinary retention. MUSCULOSKELETAL: denies weakness, joint pain, or bony pain SKIN: Denies rash, skin lesions, or other NEUROLOGIC: Denies weakness, headache, numbness, change in speech, confusion, seizures, incoordination. PSYCHIATRIC: No concerning psychosocial issues. 12 point review of systems is negative except for those stated above Patient History Medical History Acute upper GI bleed Anxiety Breast cancer (1992) Breast cancer, left breast (2016) Cataract (2010) Chicken pox Diabetes mellitus (~1987) Fractures GERD (gastroesophageal reflux disease) Hayfever (~1959) History of recurrent ear infection Hyperlipidemia (~1997) Hyperparathyroidism (2013) Hypertension (~1998) Impingement syndrome of right shoulder Left knee DJD Lumbar spine pain Measles Obesity (BMI 30-39.9) Osteopenia Osteoporosis Ribs, multiple fractures Shoulder pain (2014) Sternal fracture (2014) Urinary incontinence (2012) Vertigo (2011) Surgical History Anesthesia complication H/O lumpectomy H/O mastectomy History of fusion of cervical spine (2011) History of knee replacement (2006) History of lumbar spinal fusion (2009) History of lumbar spinal fusion Family History Father Hypertension High cholesterol Pneumonia Mother Hypertension Mental health problem Stroke History of hip surgery Grandfather Heart disease Hypertension High cholesterol Grandmother Hypertension High cholesterol Social History marital status: household members: spouse occupational status: other Smoking Status: Never smoker alcohol intake: current substance use type: does not use Smoking Status: Never smoker alcohol intake frequency: holidays/special occasions only Substance Use Type: does not use Exam Narrative Exam Narrative: GENERAL: [75] year old patient appears stated age. Well-developed patient, in mild distress. GCS 15 HEAD: Superficial abrasion overlying R zygoma, mild swelling. No evidence of depressed skull fracture. EYES: Pupils equal round and reactive. No hyphema. Extraocular motions intact. No scleral icterus. No injection or drainage. ENT: Nose without bleeding, purulent drainage. Throat without erythema, tonsillar hypertrophy or exudate. Airway patent. No hemotympanum. NECK: Trachea midline. Non tender CARDIOVASCULAR: Regular rate and rhythm without murmurs, gallops, or rubs. RESPIRATORY: Clear to auscultation. Breath sounds equal bilaterally. No wheezes, rales, or rhonchi. GASTROINTESTINAL: Abdomen soft, non-tender, nondistended. EXTREMITIES: No edema or joint tenderness. BACK: Nontender without deformity or crepitance. No flank tenderness. NEURO: AOx3. SKIN: No rash or erythema of visible areas Initial Vital Signs Initial Vital Signs: Vital Signs Temperature 97.4 F L 03/25/21 08:23 Pulse Rate 72 03/25/21 08:23 Respiratory Rate 18 03/25/21 08:23 Blood Pressure 196/86 H 1023/21 08:23 Pulse Oximetry 98 03/25/21 08:[address] Head Rule Age <16 years old: No Patient on blood thinners: No Seizure after injury: No Exclusion: Patient NOT Excluded, Proceed to next steps GCS < 15 at 2 hr post trauma: No Suspected open or depressed skull fracture: No Any sign of basilar skull fracture (hemotympanum, raccoon eyes, Zamarripa's sign, CSF shorty-/rhinorrhea): No Two or more episodes of vomiting: No Age greater or equal to 65 years: Yes Retrograde amnesia to the event greater or equal to 30 min: No Dangerous Mechanism (pedestrian vs. mv, occupant ejected from mv, fall from >3 ft or > 5 stairs): No Recommendation: Consider CT. The [place] Head CT Rule cannot rule out need for Imaging. Course Orders Ordered: Discontinued Medications Bacitracin (Bacitracin Oint 0.9 Gm Pckt) 1 applic TOP NOW ONE Stop: 03/25/21 09:10 Last Admin: 03/25/21 09:11 Dose: 1 applic Documented by: NIMISHA Fluorescein Sodium (Fluorescein 1 Mg Strip) 1 mg EYE-RIGHT NOW ONE Stop: 03/25/21 08:37 Last Admin: 03/25/21 09:09 Dose: 1 mg Documented by: NIMISHA Proparacaine HCl (Proparacaine 0.5% Ophth Bridgette) 1 drops EYE-RIGHT NOW ONE Stop: 03/25/21 08:37 Last Admin: 03/25/21 09:08 Dose: 2 drop Documented by: NIMISHA MDM - Neuro Symptoms/Deficit MDM Narrative Medical decision making narrative: Patient has a very reassuring history and physical exam. There are no indications to suggest imaging is needed. Though [place] Head CT cannot rule out the need we did discuss the fact that we are 4 days into the course of the injury and she still has no symptoms. We discussed that even if she does have a bleed it is highly unlikely to be one that would require intervention given her lack of symptoms. She could have a small nondisplaced facial fracture, but pain is well controlled, she has no evidence of blowout fracture or entrapped EOM. Through an excellent and very open shared decision making process we agree to hold off on imaging for now and discussed return precautions extensively which she and understand. Discharge Plan Departure Patient Disposition: Home Clinical Impression: Contusion of face Qualifiers: Encounter type: initial encounter Qualified Code(s): S00.83XA - Contusion of other part of head, initial encounter Instructions: DI for Contusion Activity Restrictions/Additional Instructions: *You have been diagnosed with [fall with facial contusion. Your history and physical exam are very reassuring *What to do: *Please continue to take your regular medications as directed. [ ] New medication prescriptions sent to your pharmacy: [ ] [ ] New medication written as a paper prescription [x ] No new medications given *Please follow up with your primary care provider in 2-3 days, call for an appointment. Let them know you were seen in the Emergency Department and that we ask that you be seen in follow up. We will electronically transmit a record of today's note if your PCP is in our system * also, as we discussed it would be reasonable to follow up with Dr. osorio for an eye exam in a few days. Please call the office on Saturday morning and let them know that you were seen in the emergency department and would like is seen in follow-up. *Return to Emergency Department if you should have any new, worsening or concerning symptoms, such as [falling, dizziness, vision change, vomiting, or other bothersome symptoms Prescriptions: No Action (DME) Blood Glucose Test Strip See Rx Instructions .ROUTE .MEDSUPPLY Qty: 200 RF: 11 zolpidem 10 mg tablet 5 mg PO BEDTIME PRN (Reason: sleep) Qty: 45 RF: 0 metoprolol tartrate [Lopressor] 100 mg tablet 100 mg PO BID Qty: 180 RF: 3 Hold Instructions: med change coenzyme Q10 [CoQ-10] 100 mg capsule 300 mg PO DAILY RF: 0 cholecalciferol (vitamin D3) 125 mcg (5,000 unit) capsule 5,000 unit PO QDAY Qty: 0 RF: 0 amlodipine 10 mg tablet 5 mg PO DAILY Qty: 90 RF: 3 losartan 100 mg tablet 100 mg PO BEDTIME Qty: 90 RF: 3 gabapentin 300 mg capsule 900 mg PO BEDTIME Qty: 270 RF: 3 calcium carbonate [Calci-Chew] 500 MG tablet,chewable 600 mg PO QDAY Qty: 0 RF: 0 (DME) pen needle, diabetic [1st Tier Unifine Pentips] 31 gauge x 5/16 needle See Dose Instructions .ROUTE .MEDSUPPLY Qty: 100 RF: 11 escitalopram oxalate [Lexapro] 10 mg tablet 10 mg PO QDAY Qty: 90 RF: 3 Hold Instructions: med change carvedilol 25 mg tablet 25 mg PO BID Qty: 60 RF: 3 atorvastatin [Lipitor] 10 mg tablet 10 mg PO HS Qty: 90 RF: 3 metformin 500 mg tablet extended release 24 hr 1,000 mg PO DAILY RF: 0 glimepiride 2 mg tablet 4 mg PO QAM RF: 0 Basaglar KwikPen U-100 Insulin 100 unit/mL (3 mL) Insulin Pen 12 unit SUBCUT DAILY RF: 0 Januvia 50 mg Tablet 100 mg PO DAILY RF: 0 methocarbamol 750 mg tablet 750 mg PO TID PRN (Reason: muscle spasm) Qty: 14 RF: 0 lidocaine 5 % adhesive patch,medicated 1 patch topical DAILY PRN (Reason: pain) Qty: 15 RF: 0 Referrals: Sylvie Roy DO [Primary Care Provider] -
[2021-03-25] MEDS: PROPARACAINE 0.5% OPHTH SOL 1 DROPS EYE-RIGHT (09:08)
[2021-03-25] MEDS: FLUORESCEIN 1 MG STRIP EYE-RIGHT (09:09)
[2021-03-25 09:11] VITALS: BP 173/91; PULSE 65; RESP 18; O2SAT 96
[2021-03-25] MEDS: BACITRACIN OINT 0.9 GM PCKT 1 APPLIC TOP (09:11)
== END 2021-03-25 09:17 | disposition home or self-care (01) ==
PROVIDERS: Emergency Provider Emergency Medicine; Family Provider Family Medicine; PCP Family Medicine
DX: S00.83XA Contusion of other part of head, initial encounter (principal); W01.10XA Fall on same level from slipping, tripping and stumbling with subsequent striking against unspecified object, initial encounter
CPT/HCPCS: 99282

== ENCOUNTER → 2021-04-12 08:25 | Outpatient (CLI) | payer MEDICARE, OTHER, SELFPAY ==
[2020-11-02 10:03] VITALS: BMI 33.1
[2021-04-12 11:29] LABS: COVID19 -Nasal RAPID Negative (Negative)
== END ==
PROVIDERS: Family Provider Family Medicine; PCP Family Medicine; Visit Provider Physician Assistant
DX: Z20.822 Contact with and (suspected) exposure to COVID-19 (principal)
CPT/HCPCS: 87635; C9803

== ENCOUNTER → 2021-05-12 10:45 | Outpatient (CLI) | payer MEDICARE, OTHER, SELFPAY ==
[2020-11-02 10:03] VITALS: BMI 33.1
--- NOTE | 2021-05-12 10:47 | DI.CT.S_ITS ---
PROCEDURE: CT CHEST W CON INDICATIONS: breast cancer, left rib fracture TECHNIQUE: After the administration of intravenous contrast, 5 mm thick sections acquired from the pulmonary apices to the posterior costophrenic angles. 1 mm axial lung, 5 mm thick coronal and sagittal reformats and 7 mm axial MIP were acquired. For radiation dose reduction, the following was used: automated exposure control, adjustment of mA and/or kV according to patient size. COMPARISON: [facility], CT, CT CHEST W CON, 03/15/2020, 8:50. FINDINGS: Image quality: Excellent. Lungs and pleura: No acute air space opacities. No pleural effusions or pneumothorax. Central and peripheral airways are patent and normal in caliber. Mediastinum: Heart size is normal. No pericardial effusion. No mediastinal or hilar adenopathy by size criteria. Thoracic aorta and central pulmonary arteries are normal in size. Esophagus is normal in caliber. Trace hiatal hernia. Bones and chest wall: Irregular contour distended, compatible with remote fracture. No vertebral body compression fractures. Remote fracture deformities of the left 2nd -7th ribs. No axillary or supraclavicular adenopathy by size criteria. Surgical clips are again demonstrated in left axilla with associated soft tissue density, likely reflecting scar. Thyroid gland appears homogeneous. Abdomen: No significant abnormality. Scattered hypoattenuating lesions are seen in the liver measuring up to 1.2 cm, likely representing cysts. IMPRESSION: 1. No significant interval change. Dictated by: Jay Mortensen M.D. on 05/12/2021 at 11:57 Approved by: Jay Mortensen M.D. on 05/12/2021 at 12:06
== END ==
PROVIDERS: Family Provider Family Medicine; PCP Family Medicine; Referring Provider Internal Medicine Hematology & Oncology; Visit Provider Internal Medicine Hematology & Oncology
DX: C50.912 Malignant neoplasm of unspecified site of left female breast (principal); S22.32XA Fracture of one rib, left side, initial encounter for closed fracture
CPT/HCPCS: 71260

== ENCOUNTER → 2021-07-07 09:37 | Outpatient (CLI) | payer MEDICARE, OTHER, SELFPAY ==
[2020-11-02 10:03] VITALS: BMI 33.1
[2021-07-07 10:40] LABS: Add Manual Diff / Slide Review NO; Basophils Absolute Auto 100 /uL (0-100); Basophils Percent Auto 0.9 % (0-2); Eosinophils Absolute Auto 100 /uL (0-450); Eosinophils Percent Auto 2.6 % (2-4); Hematocrit 37.1 % (36-46); Hemoglobin 12.5 g/dL (12.0-16.0); Lymphocytes Absolute Auto 1100 /uL (1100-4500); Lymphocytes Percent Auto 19.1 % (25-40); Mean Corpuscular HGB Conc 33.7 % (30-36); Mean Corpuscular Hemoglobin 28.8 PG (26-34); Mean Corpuscular Volume 85.3 fL (80-100); Monocytes Absolute Auto 600 /uL (0-900); Monocytes Percent Auto 11.2 % (3-14); Neutrophils Absolute Auto 3700 /uL (1500-7000); Neutrophils Percent Auto 66.2 % (50-75); Platelet Count 259 X10^3/uL (150-400); Red Blood Cell Count 4.35 X10^6/uL (4.0-5.2); Red Cell Distribution Width 13.9 % (11.6-14.8); White Blood Cell Count 5.6 X10^3/uL (4.5-11.0)
[2021-07-07 10:51] LABS: BUN Creatinine Ratio 26.7 (6-22); Blood Urea Nitrogen 36 mg/dL (7-17); Calcium 10.4 mg/dL (8.4-10.2); Carbon Dioxide 33 mmol/L (22-32); Chloride 101 mmol/L (98-107); Estimated Glomerular Filt Rate 38.2 mL/min (>60); Glucose 80 mg/dL (80-110); HEMOLYSIS < 15 (0-50); Potassium 4.1 mmol/L (3.4-5.1); Sodium 139 mmol/L (137-145)
== END ==
PROVIDERS: Family Provider Family Medicine; PCP Family Medicine; Referring Provider Orthopaedic Surgery; Visit Provider Orthopaedic Surgery
DX: Z01.818 Encounter for other preprocedural examination (principal); R73.9 Hyperglycemia, unspecified; M25.561 Pain in right knee; Z01.812 Encounter for preprocedural laboratory examination
CPT/HCPCS: 36415; 80048; 83036; 85025; 93005; 93010

== ENCOUNTER → 2021-07-31 09:07 | Outpatient (CLI) | payer MEDICARE, OTHER, SELFPAY ==
[2020-11-02 10:03] VITALS: BMI 33.1
[2021-07-31 11:31] LABS: COVID19 -Nasal RAPID Negative (Negative)
== END ==
PROVIDERS: Family Provider Family Medicine; PCP Family Medicine; Visit Provider Family Medicine Sleep Medicine
DX: Z20.822 Contact with and (suspected) exposure to COVID-19 (principal)
CPT/HCPCS: 87635; C9803

== ENCOUNTER 2021-08-02 07:45 | Day surgery (SDC) | payer MEDICARE, OTHER, SELFPAY ==
[2020-11-02 10:03] VITALS: BMI 33.1
[2021-07-26 07:18] VITALS: BMI 34.3
[2021-08-02] VITALS (16 sets, daily range): BP systolic 109–155; BP diastolic 53–87; PULSE 53–69; RESP 8–20; TEMP 36.1–36.6; O2SAT 91–99; BMI 34.3
--- NOTE | 2021-08-02 07:58 | DI.RAD.S_ITS ---
PROCEDURE: XR KNEE LT 1TO2V INDICATIONS: post op total knee TECHNIQUE: 2 view(s) of the knee acquired. COMPARISON: [facility], CR, XR KNEE LT 3V, 02/01/2021, 17:01. FINDINGS: Bones: Patient is status post knee joint arthroplasty. Hardware components are in expected positions. Visualized bony structures are intact. Cortical thickening in the lateral aspect of the femoral metaphysis appears unchanged, likely sequelae of old injury. Soft tissues: Overlying postoperative changes are noted. IMPRESSION: Expected postsurgical changes. Dictated by: Cole Lam M.D. on 08/02/2021 at 12:06 Approved by: Cole Lam M.D. on 08/02/2021 at 12:06
[2021-08-02] MEDS: PREGABALIN 75 MG CAPSULE PO (08:10)
[2021-08-02] MEDS: ACETAMINOPHEN 325 MG TABLET 975 MG PO (08:10)
[2021-08-02] MEDS: CELECOXIB 200 MG CAPSULE PO (08:10)
--- NOTE | 2021-08-02 08:13 | PM.PREOP ---
Pre-operative Note COVID-19 COVID-19 status: Negative Result date/Date tested (Pos, Neg/Pending): 07/31/21 Criteria for continued procedure: Increased loss of function, Continuing or worsening of significant or severe pain and Non-surgical alternatives not available or appropriate per current SOC Interval Note History & Physical reviewed/Exam performed by Physician: Yes Changes to H&P: No
--- NOTE | 2021-08-02 08:32 | SUR.OPER ---
Supine on padded OR bed. Pillow under head, arms secured on padded armboards <90 degree abduction. Safety belt across torso. Non-operative leg secured with tape over blanket over lower leg. Operative leg secured in [employer] positioner. Foam padded brace at thigh of operative leg.
[2021-08-02] MEDS: LACTATED RINGERS 1,000 ML 42 ML IV ×2 (08:40→11:05)
[2021-08-02] MEDS: SCOPOLAMINE 1 PATCH TOP (08:45)
[2021-08-02] MEDS: TRANEXAMIC ACID 1,000 MG VIAL 1000 MG INJ ×2 (09:10→10:03)
[2021-08-02] MEDS: CEFAZOLIN 2 GM/20 ML SYRINGE IV (09:10)
[2021-08-02] MEDS: MORPHINE 4 MG/ML INJ INJ (09:22)
[2021-08-02] MEDS: BUPIVACAINE 0.25% (PF) 60 ML, EPINEPHrine 0.3 MG INJ (09:24)
[2021-08-02] MEDS: BUPIVACAINE LIPOSOME 266 MG/20 ML VIAL INJ (09:25)
--- NOTE | 2021-08-02 10:34 | PM.OP.1 ---
Operative Date/Time/Diagnoses Date of procedure: 08/02/21 Time of procedure: 10:34 Pre-op diagnosis: Left knee osteoarthritis Post-op diagnosis: same Procedure & Clinicians Procedure: Left total knee replacement Same procedure as scheduled: Yes Indications: The patient has had progressively worsening left knee pain with radiographic changes consistent with arthritis. Non-operative management has failed and the patient has requested total knee replacement. The risks, benefits and alternatives to surgery were discussed with the patient prior to proceeding. Risks discussed included, but were not limited to, failure to relieve pain, stiffness, infection, nerve damage, deep venous thrombosis, pulmonary embolism, stroke, coma, heart attack, permanent paralysis and , as well as the potential need for eventual revision of the prosthetic. Surgeon: Scott Rodriguez Toolmaker Grade Three: Tali Álvarez Click Yes if Unassisted: No Anesthesia Type: General, Spinal and Local Operative Notes Findings: Severe patellofemoral and moderate medial and lateral osteoarthritis. Closure Type: primary Specimen(s): none sent Prosthetic devices, grafts, tissues, transplants, or devices: Implants used in this procedure were manufactured by the [employer] and included the BCS II Journey total knee replacement with a size 4 left cobalt chromium femur, a size 3 left non porous tibial base plate with a 9 mm cross-linked tibial insert and a 35 mm oval Violeta II patellar component. Applied: implant(s) Estimated Blood Loss (mL): 50 Blood products transfused: none Tourniquet time (min): 46 Procedure in detail: The patient was seen in the pre-operative area, where the left knee was identified as the operative site and this was marked with my initials. The patient received pre-operative antibiotics, and was taken to the operating room and placed on the operative table in the supine position. After satisfactory anesthesia, a full time babysitter out was performed. The left leg was encircled with a tourniquet about the proximal thigh, and the leg was prepared from the toes to the tourniquet with ChloroPrep in the usual fashion and draped through sterile drapes. The leg was elevated and exsanguinated with Eschmark bandage and the tourniquet inflated to 250 mmHg pressure. The knee was approached through an approximately 18 cm incision centered over the patella and carried into the knee through a medial parapatellar arthrotomy. The anterior osteophytes and soft tissues were removed. The rotational landmarks of Luigi's line and the transepicondylar axis were marked on the femur with electrocautery, and intramedullary guide holes for the femur and tibia were created. The distal femoral cut was made in 6 degrees of valgus using the intramedullary guide at the primary cut setting. The proximal tibial cut was then made using the intramedullary guide, taking 9 mm of bone off the less involved side. The extension gap was checked and the rotation of the femoral component confirmed with the gap balancing blocks. The anterior, posterior and chamfer cuts were then made. The posterior osteophytes and soft tissues were then removed. The posterior capsule was injected with part of a mixture of 60 ml 0.25% Marcaine mixed with 20 ml Exparel and 4 mg of morphine for post-operative pain control. The remainder of this mixture was injected into the capsule and subcutaneous tissues during cement curing. The tibia was prepared with the rotation set by an extra medullary guide. Trial tibial and femoral components were then placed and the intercondylar notch cut through the femoral trial. Range of motion was 0-135 degrees, with good stability throughout the range. The patella was then cut to accommodate the patellar prosthetic. There was no need for a lateral release. The trials were then removed, and the femoral hole plugged with a bone plug. The bone was prepared with pulsatile lavage, and dried with a sponge. Cement was applied and the final prosthetics placed. Excess cement was removed during and after cement curing. After confirming there was no extruded cement posteriorly, the final tibial insert was placed. The knee was copiously irrigated and the tourniquet deflated. Hemostasis was obtained. The capsule was closed with interrupted # 2 polyester sutures. The subcutaneous layer was closed with 3-0 Vicryl, and the skin with a running 3-0 V-Lock suture and Dermabond. An Aquacel Ag dressing was applied and the patient was taken to recovery having tolerated the procedure well. Complications: none Post-operative Condition: stable Disposition: PACU Plan for aftercare: The patient will be maintained on a standard total knee replacement protocol with weight bearing as tolerated. The patient will receive aspirin and sequential compression devices for DVT prophylaxis. The patient will be discharged home when safe for the home environment.
--- NOTE | 2021-08-02 10:43 | SUR.PREOP ---
Block start time [1043] . Monitoring initiated and maintained throughout procedure. Oxygen and medications given by anesthesiologist instructions. Patient remained stable throughout procedure, no adverse reactions noted. Block end time [1052].
[2021-08-02] MEDS: HYDROMORPHONE 2 MG INJ IV ×3 (10:46→11:14)
--- NOTE | 2021-08-02 10:59 | SUR.PREOP ---
last block note on incorrect patient
[2021-08-02] MEDS: OXYCODONE IR 5 MG TABLET PO ×2 (11:05→15:18)
--- NOTE | 2021-08-02 11:29 | SUR.PHASEI ---
Warm blanket given, patient beginning to doze. Room air trial, desat to 88% when dozing. Arouses easily to voice with sat up 98-100%.O2 decreased to 1LNP
--- NOTE | 2021-08-02 15:10 | SUR.PHASEII ---
Pt up and ambulatory five steps with walker assist. Pt then in wheelchair to bathroom and able to sit on toilet with minimal assist.
--- NOTE | 2021-08-02 15:32 | SUR.PHASEII ---
Pt able to void without difficulty.
--- NOTE | 2021-08-02 15:48 | SUR.PHASEII ---
Dr Chambers aware of 298 sugar for patient. Okay to continue with dc and patient to manage sugar at home.
== END 2021-08-02 15:30 | disposition home or self-care (01) ==
LOC: OR 07:47 → AC 10:34 → OR 12:18
PROVIDERS: Family Provider Family Medicine; PCP Family Medicine; Referring Provider Orthopaedic Surgery; Visit Provider Orthopaedic Surgery
PROC: 0SRD0JZ Replacement of Left Knee Joint with Synthetic Substitute, Open Approach (ICD-10-PCS; CPT 27447; principal; 2021-08-02 08:45)
DX: M17.12 Unilateral primary osteoarthritis, left knee (principal); I10 Essential (primary) hypertension; E78.5 Hyperlipidemia, unspecified; G47.33 Obstructive sleep apnea (adult) (pediatric); E11.9 Type 2 diabetes mellitus without complications; Z79.84 Long term (current) use of oral hypoglycemic drugs; Z79.4 Long term (current) use of insulin
CPT/HCPCS: 27447; 64450; 73560; 82962; C1776; C1713; C9290; J0171; J0690; J1100; J1170; J2250; J2270; J2405; J2704; J3010

== ENCOUNTER 2021-08-04 17:03 | Inpatient (IN) | payer MEDICARE, OTHER, SELFPAY ==
[2020-11-02 10:03] VITALS: BMI 33.1
[2021-08-04] VITALS (16 sets, daily range): BP systolic 125–182; BP diastolic 55–89; PULSE 58–70; RESP 17–38; TEMP 36.7–37.3; O2SAT 88–98; BMI 32.9
--- NOTE | 2021-08-04 17:42 | DI.RAD.S_ITS ---
PROCEDURE: XR CHEST 1V INDICATIONS: altered mental status TECHNIQUE: One view of the chest was acquired. COMPARISON: [facility], CT, CT CHEST W CON, 05/12/2021, 11:15. [facility], CR, XR CHEST 2V, 09/29/2020, 11:13. FINDINGS: Surgical changes and devices: Postsurgical changes redemonstrated within the lower cervical spine. Lungs and pleura: Lungs demonstrate no acute consolidation. No pleural effusions or pneumothorax. Mediastinum: Mediastinal contours appear unchanged. Heart size is normal. Bones and chest wall: No suspicious bony lesions. Overlying soft tissues appear unremarkable. IMPRESSION: 1. No definite acute cardiopulmonary disease. Dictated by: Magan Tavares M.D. on 08/04/2021 at 19:02 Approved by: Magan Tavares M.D. on 08/04/2021 at 19:05
--- NOTE | 2021-08-04 17:42 | DI.CT.S_ITS ---
PROCEDURE: CT HEAD/BRAIN WO CON INDICATIONS: multiple falls TECHNIQUE: Noncontrast 4.5 mm thick angled axial sections acquired from the foramen magnum to the vertex, with coronal and sagittal reformats. For radiation dose reduction, the following was used: automated exposure control, adjustment of mA and/or kV according to patient size. COMPARISON: None. FINDINGS: Image quality: Excellent. CSF spaces: Basal cisterns are patent. No extra-axial fluid collections. There is mild to moderate cerebral volume loss, with resultant ventricular and sulcal prominence. Brain: No intracranial hemorrhage, mass, or mass effect. There are subcortical, periventricular and deep white matter hypodensities consistent with mild chronic small vessel ischemic changes. The camacho-white matter junction appears preserved. There is intracranial internal carotid artery atherosclerosis. Skull and face: Calvarium and visualized facial bones appear intact, without suspicious lesions. Sinuses: Visualized sinuses and mastoids are clear. IMPRESSION: 1. No acute intracranial abnormality. 2. Mild to moderate cerebral volume loss and mild chronic white matter small vessel ischemic changes. Dictated by: Magan Tavares M.D. on 08/04/2021 at 18:25 Approved by: Magan Tavares M.D. on 08/04/2021 at 18:26
[2021-08-04 18:54] LABS: Add Manual Diff / Slide Review NO; Basophils Absolute Auto 0 /uL (0-100); Basophils Percent Auto 0.5 % (0-2); Eosinophils Absolute Auto 200 /uL (0-450); Eosinophils Percent Auto 1.6 % (2-4); Hematocrit 33.5 % (36-46); Hemoglobin 11.3 g/dL (12.0-16.0); Lymphocytes Absolute Auto 1000 /uL (1100-4500); Mean Corpuscular HGB Conc 33.8 % (30-36); Mean Corpuscular Hemoglobin 29.1 PG (26-34); Mean Corpuscular Volume 85.8 fL (80-100); Monocytes Absolute Auto 1100 /uL (0-900); Neutrophils Absolute Auto 8400 /uL (1500-7000); Neutrophils Percent Auto 78.9 % (50-75); Platelet Count 270 X10^3/uL (150-400); Red Cell Distribution Width 13.6 % (11.6-14.8); White Blood Cell Count 10.6 X10^3/uL (4.5-11.0)
[2021-08-04 19:05] LABS: Alanine Aminotransferase 14 IU/L (<35); Albumin Globulin Ratio 1.2 (1.0-2.8); Alkaline Phosphatase 58 U/L (38-126); Aspartate Aminotransferase 31 IU/L (14-36); BUN Creatinine Ratio 28.5 (6-22); Bilirubin Total 0.5 mg/dL (0.2-1.3); Blood Urea Nitrogen 53 mg/dL (7-17); Carbon Dioxide 26 mmol/L (22-32); Chloride 97 mmol/L (98-107); Estimated Glomerular Filt Rate 26.4 mL/min (>60); Globulin 3.4 g/dL (1.7-4.1); Glucose 93 mg/dL (80-110); HEMOLYSIS < 15 (0-50); Potassium 3.7 mmol/L (3.4-5.1); Sodium 131 mmol/L (137-145); Total Protein 7.4 g/dL (6.3-8.2)
--- NOTE | 2021-08-04 19:20 | ED.NEUROSD ---
HPI - Neuro Symptoms/Deficit General Chief Complaint: Neuro Symptoms/Deficit Stated Complaint: LOC, Post Surgery Time Seen by Provider: 08/04/21 18:11 Source: patient Mode of arrival: Wheelchair History of Present Illness HPI Narrative: Patient is a 7 75-year-old female. Two days ago underwent a left total knee replacement. Was discharged home the same day. Since that time has been taking Tylenol 3 times a day, Motrin 3 times a day and has taken oxycodone only at night and then 1 time during the day. Patient is here with her . Apparently since she has been discharged from the hospital patient's feels like she has been slurring her words and has been having word-finding issues. This has been going on for the past 24-36 hours. He thinks that it has improved somewhat since arrival here to the ER. She has also had multiple falls over the past 24 hours. She states she is having severe pain in her left knee however the falls are because she is having balance issues and not necessarily because of weakness or pain in the left knee. She did not hit her head. She is not having any neck pain. No other joint pain except for the left knee. She does have a history of vertigo but she states this is not vertigo symptoms that is causing her to fall. Denies any vision changes. No headache. No ringing in her ears. Has not on anticoagulation. On Anticoagulants: No Related Data Home Medications Medication Instructions Recorded Confirmed metformin 500 mg tablet,extended 1,000 mg PO DAILY tab 01/29/20 08/04/21 release 24 hr insulin glargine 100 unit/mL (3 14 unit SUBCUT BEDTIME 06/14/20 08/04/21 mL) subcutaneous pen (Basaglar KwikPen U-100 Insulin) sitagliptin 50 mg tablet (Januvia) 100 mg PO DAILY 06/14/20 08/04/21 cholecalciferol (vitamin D3) 125 5,000 unit PO QDAY #0 cap 09/29/20 08/04/21 mcg (5,000 unit) capsule coenzyme Q10 100 mg capsule 200 mg PO DAILY cap 09/29/20 08/04/21 (CoQ-10) chlorthalidone 25 mg tablet 12.5 mg PO DAILY tab 07/03/21 08/04/21 glimepiride 4 mg tablet 8 mg PO QAM 07/26/21 08/04/21 insulin aspar prot-insulin aspart 5 - 6 unit SUBCUT TID PRN 07/26/21 08/04/21 100 unit/mL (70-30) subcutaneous pen (Novolog Mix 70-30FlexPen U-100) losartan 100 mg tablet 100 mg PO BEDTIME 07/26/21 08/04/21 vitamins A,C,P-qjac-yvjdbf 14,320 1 cap PO BID 07/26/21 08/04/21 unit-226 mg-200 unit capsule (PreserVision AREDS) Previous Rx's Medication Instructions Recorded pen needle, diabetic 31 gauge x #100 each 03/03/1810/16 (1st Tier Unifine Pentips) blood sugar diagnostic (Blood #200 each 04/20/19 Glucose Test) escitalopram oxalate 10 mg tablet 10 mg PO QDAY #90 tab 08/23/20 (Lexapro) amlodipine 10 mg tablet 5 mg PO DAILY #90 tab 11/11/20 gabapentin 300 mg capsule 900 mg PO BEDTIME #270 cap 11/11/20 atorvastatin 10 mg tablet (Lipitor) 10 mg PO HS #90 tab 03/07/21 zolpidem 10 mg tablet 5 mg PO BEDTIME PRN #30 tab 07/03/21 carvedilol 25 mg tablet See Rx Instructions .ROUTE 07/11/21 .COMPLEX #60 tab acetaminophen 325 mg tablet 975 mg PO Q8H PRN 30 Days tab 08/02/21 aspirin 81 mg tablet,delayed 81 mg PO BID #42 tab 08/02/21 release ibuprofen 600 mg tablet 600 mg PO Q6HR PRN 30 Days tab 08/02/21 oxycodone 5 mg tablet 5 mg PO Q4H PRN #50 tab 08/02/21 Allergies Allergy/AdvReac Type Severity Reaction Status Date / Time Anesthetics - Amide Type - Allergy Severe PROJECTILE Verified 07/26/21 13:26 Select A VOMITING [Anesthetics - Amide Type] Anesthetics - Keke Type- Allergy Severe PROJECTILE Verified 07/26/21 13:26 Parabens VOMITING [Anesthetics - Keke Type] Review of Systems Review of Systems ROS Unobtainable: All systems reviewed & are unremarkable except as noted in HPI and below Hematologic/Lymphatic On Anticoagulants: No Patient History Medical History Acute upper GI bleed Anxiety Breast cancer (1992) Breast cancer, left breast (2017) Cataract (2010) Chicken pox Diabetes mellitus (~1987) Fractures GERD (gastroesophageal reflux disease) Hayfever (~1959) History of recurrent ear infection Hyperlipidemia (~1997) Hyperparathyroidism (2013) Hypertension (~1997) Impingement syndrome of right shoulder Left knee DJD Lumbar spine pain Measles Obesity (BMI 30-39.9) ORSCOE (obstructive sleep apnea) Osteopenia Osteoporosis Pneumonia Ribs, multiple fractures Shoulder pain (2014) Sternal fracture (2014) Unilateral primary osteoarthritis, left knee Urinary incontinence (2012) Vertigo (2011) Surgical History (Updated 07/26/21 @ 13:27 by Marian Avila RN) Anesthesia complication H/O lumpectomy H/O mastectomy History of fusion of cervical spine (2011) History of knee replacement (2006) History of lumbar spinal fusion (2009) History of lumbar spinal fusion Hx of bilateral cataract extraction Family History Father Hypertension High cholesterol Pneumonia Mother Hypertension Mental health problem Stroke History of hip surgery Grandfather Heart disease Hypertension High cholesterol Grandmother Hypertension High cholesterol Social History marital status: household members: spouse occupational status: other Smoking Status: Never smoker alcohol intake: current substance use type: does not use Smoking Status: Never smoker alcohol intake frequency: holidays/special occasions only Substance Use Type: does not use Exam Initial Vital Signs Initial Vital Signs: Vital Signs Temperature 98.1 F 08/04/21 17:06 Pulse Rate 58 L 08/04/21 17:06 Respiratory Rate 18 08/04/21 17:06 Blood Pressure 125/59 L 08/04/21 17:06 Pulse Oximetry 93 08/04/21 17:06 Const General: cooperative, healthy appearing, comfortable, well developed and No ill appearing HENMT Head: normal to inspection and normocephalic Nose: external nose normal Face and sinus: normal facial exam Mouth: No moist mucous membranes Eyes Pupils: PERRL Chest Chest: normal inspection of the chest Resp Effort & Inspection: normal respiratory effort Auscultation: clear to auscultation bilaterally Cardio Rate: regular rate Rhythm: regular rhythm GI Inspection: normal to inspection and non-distended Skin General: no rashes or lesions noted and warm Neuro General: patient alert, patient awake, patient oriented x3, moves all extremities (Decreased movement of left leg because of pain in the left knee), no focal motor deficits, CN's II-XI intact bilaterally and not confused Cognition: normal cognition Speech: speech normal Sensory Exam: no sensory deficits noted Coordination: foabha-gf-olev test normal Other: Patient has a nonfocal neurologic exam. She is not slurring her words on my exam in her who is at bedside states that he does think that she is much improved from the past several days. Extrem Other: Bilateral upper extremities and right lower extremity unremarkable. She does have bandages around her left knee consistent with her stated surgical history otherwise left lower extremities unremarkable Psych Appearance: grossly normal and well kempt Scores GCS Thayer coma scale eye opening: Spontaneous Thayer coma scale verbal response: Orientated Scar coma scale motor response: Obey commands Thayer coma scale total score: 15 Course Orders Ordered: ED Orders 08/04/21 17:42 CT head/brain wo con Stat XR chest 1V Stat EKG-12 Lead Stat 08/04/21 18:50 Complete Blood Count AUTO DIFF Stat Comprehensive Metabolic Panel Stat Aspirin (Aspirin Ec 81 Mg Tablet) 81 mg PO DAILY [facility] Atorvastatin Calcium (Atorvastatin 20 Mg Tablet) 80 mg PO BEDTIME [facility] Last Admin: 08/04/21 22:04 Dose: 80 mg Documented by: SENTHIL Clopidogrel Bisulfate (Clopidogrel 75 Mg Tablet) 75 mg PO DAILY [facility] Dextrose (Dextrose 50 % In Water 25 Gm/50 Ml Syringe) 25 gm IV PRN PRN PRN Reason: Hypoglycemia Enoxaparin Sodium (Enoxaparin 30 Mg/0.3 Ml Syringe) 30 mg SUBCUT DAILY [facility] Sodium Chloride (Normal Saline 0.9%) 1,000 mls @ 60 mls/hr IV CONT [facility] Last Admin: 08/04/21 22:31 Dose: 60 mls/hr Documented by: SENTHIL Labetalol HCl (Labetalol 20 Mg/4 Ml Syringe) 5 mg IV Q4HR PRN PRN Reason: Hypertension Methocarbamol (Methocarbamol 500 Mg Tablet) 500 mg PO Q8HR PRN PRN Reason: pain Naloxone HCl (Naloxone 0.4 Mg/Ml Vial) 0.2 mg IV Q2MIN PRN PRN Reason: Opiate Reversal Ondansetron HCl (Ondansetron 4 Mg/2 Ml Inj) 4 mg IV Q8HR PRN PRN Reason: Nausea And Vomiting Oxycodone HCl (Oxycodone Ir 5 Mg Tablet) 5 mg PO Q4HR PRN PRN Reason: Pain, Moderate (4-6) Last Admin: 08/04/21 22:04 Dose: 5 mg Documented by: SENTHIL Sennosides (Sennosides 8.6 Mg Tablet) 17.2 mg PO BEDTIME YAJAIRA Last Admin: 08/04/21 22:05 Dose: 17.2 mg Documented by: SENTHIL Discontinued Medications Sodium Chloride (Normal Saline 0.9%) 1,000 mls @ 1,000 mls/hr IV BOLUS ONE Stop: 08/04/21 20:20 Last Admin: 08/04/21 19:28 Dose: 1,000 mls/hr Documented by: YESENIA Vital Signs Vital signs: Vital Signs - 8 hr 08/04/21 17:45 08/04/21 17:46 08/04/21 18:05 Pulse Rate 58 L 58 L 58 L Respiratory Rate 17 18 Blood Pressure 143/64 H Pulse Oximetry 95 95 92 08/04/21 18:17 08/04/21 18:30 08/04/21 18:31 Pulse Rate 59 L 58 L 58 L Respiratory Rate 18 20 Blood Pressure 144/64 H 178/70 H Pulse Oximetry 92 93 08/04/21 19:00 08/04/21 19:01 08/04/21 19:30 Pulse Rate 59 L 59 L 63 Respiratory Rate 20 20 38 H Blood Pressure 182/89 H Pulse Oximetry 88 L MDM - Neuro Symptoms/Deficit Lab Data Attestation: I reviewed the patient's lab results. Result diagrams: 08/04/21 18:50 08/04/21 18:50 Labs: Lab Results 08/04/21 08/04/21 08/04/21 Range/Units 18:50 18:50 18:50 WBC 10.6 (4.5-11.0) X10^3/uL RBC 3.90 L (4.0-5.2) X10^6/uL Hgb 11.3 L (12.0-16.0) g/dL Hct 33.5 L (36-46) % MCV 85.8 (80-100) fL MCH 29.1 (26-34) PG MCHC 33.8 (30-36) % RDW 13.6 (11.6-14.8) % Plt Count 270 (150-400) X10^3/uL Neut % (Auto) 78.9 H (50-75) % Lymph % (Auto) 9.0 L (25-40) % [place] % (Auto) 10.0 (3-14) % Eos % (Auto) 1.6 L (2-4) % Baso % (Auto) 0.5 (0-2) % Neut # (Auto) 8400 H (0856-6115) /uL Lymph # (Auto) 1000 L (6494-5698) /uL [place] # (Auto) 1100 H (0-900) /uL Eos # (Auto) 200 (0-450) /uL Baso # (Auto) 0 (0-100) /uL Sodium 131 L (137-145) mmol/L Potassium 3.7 (3.4-5.1) mmol/L Chloride 97 L (98-107) mmol/L Carbon Dioxide 26 (22-32) mmol/L BUN 53 H (7-17) mg/dL Creatinine 1.86 H (0.52-1.04) mg/dL Estimated GFR 26.4 L (>60) mL/min BUN/Creatinine Ratio 28.5 H (6-22) Glucose 93 (80-110) mg/dL Hemoglobin A1c 7.1 H (4.0-6.0) % Calcium 9.0 (8.4-10.2) mg/dL Magnesium (1.6-2.3) mg/dL Total Bilirubin 0.5 (0.2-1.3) mg/dL AST 31 (14-36) IU/L ALT 14 (<35) IU/L Alkaline Phosphatase 58 (38-126) U/L Troponin I (0.01-0.034) ng/mL Total Protein 7.4 (6.3-8.2) g/dL Albumin 4.0 (3.5-5.0) g/dL Globulin 3.4 (1.7-4.1) g/dL Albumin/Globulin Ratio 1.2 (1.0-2.8) TSH (0.47-4.68) uIU/mL 08/04/21 08/04/21 08/04/21 Range/Units 18:50 18:50 18:50 WBC (4.5-11.0) X10^3/uL RBC (4.0-5.2) X10^6/uL Hgb (12.0-16.0) g/dL Hct (36-46) % MCV (80-100) fL MCH (26-34) PG MCHC (30-36) % RDW (11.6-14.8) % Plt Count (150-400) X10^3/uL Neut % (Auto) (50-75) % Lymph % (Auto) (25-40) % [place] % (Auto) (3-14) % Eos % (Auto) (2-4) % Baso % (Auto) (0-2) % Neut # (Auto) (5352-0551) /uL Lymph # (Auto) (9875-7266) /uL [place] # (Auto) (0-900) /uL Eos # (Auto) (0-450) /uL Baso # (Auto) (0-100) /uL Sodium (137-145) mmol/L Potassium (3.4-5.1) mmol/L Chloride (98-107) mmol/L Carbon Dioxide (22-32) mmol/L BUN (7-17) mg/dL Creatinine (0.52-1.04) mg/dL Estimated GFR (>60) mL/min BUN/Creatinine Ratio (6-22) Glucose (80-110) mg/dL Hemoglobin A1c (4.0-6.0) % Calcium (8.4-10.2) mg/dL Magnesium 2.1 (1.6-2.3) mg/dL Total Bilirubin (0.2-1.3) mg/dL AST (14-36) IU/L ALT (<35) IU/L Alkaline Phosphatase (38-126) U/L Troponin I < 0.012 (0.01-0.034) ng/mL Total Protein (6.3-8.2) g/dL Albumin (3.5-5.0) g/dL Globulin (1.7-4.1) g/dL Albumin/Globulin Ratio (1.0-2.8) TSH 1.55 (0.47-4.68) uIU/mL Point of Care Testing Glucose POC 110 Imaging Data Chest x-ray: Radiologist's Impression: [address] [address] XRay Report Signed Patient: Lois Barakat MR#: [id number] : 1945 Acct:[id number] Age/Sex: 75 / F Date of Service: 08/04/21 Loc: ED Accession Number: [id number] ?? Procedure: XR chest 1V Ordering Provider: Linda Ling D.O. PROCEDURE:? XR CHEST 1V ? INDICATIONS:? altered mental status ? TECHNIQUE:? One view of the chest was acquired.? ? COMPARISON:? [facility], CT, CT CHEST W CON, 05/12/2021, 11:15.? [facility], CR, XR CHEST 2V, 09/29/2020, 11:13. ? FINDINGS:? ? Surgical changes and devices:? Postsurgical changes redemonstrated within the lower cervical spine.? ? Lungs and pleura:? Lungs demonstrate no acute consolidation.? No pleural effusions or pneumothorax.? ? Mediastinum:? Mediastinal contours appear unchanged.? Heart size is normal.? ? Bones and chest wall:? No suspicious bony lesions.? Overlying soft tissues appear unremarkable.? ? IMPRESSION:? ? 1. No definite acute cardiopulmonary disease. ? ? Dictated by: Magan Tavares M.D. on 08/04/2021 at 19:02 ? ? Approved by: Magan Tavares M.D. on 08/04/2021 at 19:05? CT scan - head: Radiologist's Impression: [address] [address] [address] Scan Report Signed Patient: Lois Barakat MR#: [id number] : 1945 Acct:[id number] Age/Sex: 75 / F Date of Service: 08/04/21 Loc: ED Accession Number: [id number] ?? Procedure: CT head/brain wo con Ordering Provider: Linda Ling D.O. PROCEDURE:? CT HEAD/BRAIN WO CON ? INDICATIONS:? multiple falls ? TECHNIQUE:? Noncontrast 4.5 mm thick angled axial sections acquired from the foramen magnum to the vertex, with coronal and sagittal reformats.? For radiation dose reduction, the following was used:? automated exposure control, adjustment of mA and/or kV according to patient size.? ? COMPARISON:? None. ? FINDINGS:? Image quality:? Excellent.? ? CSF spaces:? Basal cisterns are patent.? No extra-axial fluid collections.? There is mild to moderate cerebral volume loss, with resultant ventricular and sulcal prominence.? ? Brain:? No intracranial hemorrhage, mass, or mass effect.? There are subcortical, periventricular and deep white matter hypodensities consistent with mild chronic small vessel ischemic changes.? The camacho-white matter junction appears preserved.? There is intracranial internal carotid artery atherosclerosis.? ? Skull and face:? Calvarium and visualized facial bones appear intact, without suspicious lesions.? ? Sinuses:? Visualized sinuses and mastoids are clear.? ? IMPRESSION:? ? 1. No acute intracranial abnormality. ? 2. Mild to moderate cerebral volume loss and mild chronic white matter small vessel ischemic changes.? ? ? Dictated by: Magan Tavares M.D. on 08/04/2021 at 18:25 ? ? Approved by: Magan Tavares M.D. on 08/04/2021 at 18:26?? ECG Data Attestation: I personally reviewed and interpreted this ECG as follows: Interpretation: Sinus bradycardia Ventricular rate of 57 Normal axis Normal QRS Normal QTC No ST T wave changes MDM Narrative Medical decision making narrative: Patient is well-appearing. Her left lower extremities consistent with her stated surgical history. She has a nonfocal neurologic exam and is not slurring words the time of my exam. Her head CT is unremarkable. EKG unremarkable. Labs unremarkable. Given what her states that do have concern about TIA/CVA. Considered that this was a medication issue however she appears to be only taking her oxycodone at night and then 1 time during the day. She has a history of vertigo but the she states that the falls are not because of a spinning sensation and she also feels that the falls are not because of pain weakness in her left leg. She feels like she does loses her balance. Patient does require admission to the hospital for further evaluation and treatment of her presenting symptoms. Discussed the case with KEIRA Watts the [facility] provider who will admit. I also discussed the need for admission with the patient and her . They expressed understanding and agreement. Discharge Plan Departure Patient Disposition: Home Clinical Impression: TIA (transient ischemic attack), Hypertension
[2021-08-04] MEDS: SODIUM CHLORIDE 0.9% 1,000 ML 1000 ML IV (19:28)
--- NOTE | 2021-08-04 20:20 | DI.MRI.S_ITS ---
PROCEDURE: MR HEAD/BRAIN WO CON INDICATIONS: R/o CVA vs TIA TECHNIQUE: Non-contrast axial T1 spin echo, axial T2 fast spin echo, sagittal and axial FLAIR, coronal T2 fast spin echo, axial gradient echo, axial diffusion and ADC through the brain. COMPARISON: [facility], MR, MR ANGIO HEAD WO CON, 08/05/2021, 9:55. [facility], CT, CT HEAD/BRAIN WO CON, 08/04/2021, 17:51. FINDINGS: Image quality: Excellent. CSF spaces: Ventricles appear symmetric in size and shape. Basal cisterns are patent. No extra-axial fluid collections. Brain: No intracranial bleeds or mass effects. There is cerebral volume loss for age. There are moderate periventricular and deep white matter chronic small vessel ischemic changes. Brainstem appears normal. Diffusion-weighted images show no acute ischemic insults. No chronic ischemic insults. Normal intravascular flow voids are present. Skull and face: Calvarial bone marrow is normal in signal. Orbits are normal. Sinuses: Sinuses and mastoids are clear. IMPRESSION: 1. Age related volume loss and moderate small vessel ischemic change. 2. No evidence acute stroke, hemorrhage, or mass. Dictated by: William De La Cruz M.D. on 08/05/2021 at 10:49 Approved by: William De La Cruz M.D. on 08/05/2021 at 10:51
[2021-08-04 20:59] LABS: Magnesium 2.1 mg/dL (1.6-2.3)
[2021-08-04 21:09] LABS: Troponin I < 0.012 ng/mL (0.01-0.034)
[2021-08-04 21:12] LABS: Hemoglobin A1C% w Est Avg Glu 7.1 % (4.0-6.0)
[2021-08-04 21:31] LABS: Thyroid Stimulating Hormone 1.55 uIU/mL (0.47-4.68)
[2021-08-04] MEDS: OXYCODONE IR 5 MG TABLET PO (22:04)
[2021-08-04] MEDS: ATORVASTATIN 20 MG TABLET 80 MG PO (22:04)
[2021-08-04] MEDS: SENNOSIDES 8.6 MG TABLET 17.2 MG PO (22:05)
[2021-08-04] MEDS: SODIUM CHLORIDE 0.9% 1,000 ML 60 ML IV (22:31)
[2021-08-05] VITALS (19 sets, daily range): BP systolic 117–178; BP diastolic 46–74; PULSE 66–84; RESP 16–20; TEMP 36.6–37.3; O2SAT 92–96
--- NOTE | 2021-08-05 | DI.MRI.S_ITS ---
PROCEDURE: MR ANGIO HEAD WO CON INDICATIONS: TIA TECHNIQUE: Noncontrast axial 3-D [id number] MR angiogram, with 3-dimensional maximum intensity projection (MIP) reformats of the internal carotid arteries and posterior circulation then performed. COMPARISON: None. FINDINGS: Image quality: Excellent. Anterior circulation: Intracranial internal carotid arteries demonstrate normal size and intraluminal flow signal. The flow within the paired anterior cerebral arteries is normal and symmetric. There is multifocal stenotic disease involving the M1 and M2 segment of the right middle cerebral artery. There is also M2 segment left middle cerebral artery stenotic disease. The anterior communicating artery is seen. No aneurysms or occlusions. Posterior circulation: Visualized portions of the vertebral arteries demonstrate normal caliber, and join to form the basilar artery, which has a mild stenosis in its superior aspect. The flow within the posterior cerebral arteries is normal and symmetric. No aneurysms or occlusions. IMPRESSION: 1. Bilateral middle cerebral artery stenotic disease, right greater than left. 2. Mild basilar artery stenosis. Dictated by: William De La Cruz M.D. on 08/05/2021 at 10:54 Approved by: William De La Cruz M.D. on 08/05/2021 at 10:57
[2021-08-05] MEDS: KETOROLAC 30 MG/ML VIAL 15 MG IV (02:53)
--- NOTE | 2021-08-05 03:16 | P.HP_ITS ---
History of Present Illness History of Present Illness Date Patient Seen: 08/04/21 Time Patient Seen: 20:34 Chief complaint: LOC, Post Surgery Narrative: Lois Barakat is a?75-year-old female with a history of IDDM, CKD, HTN, HL, depression, insomnia, and obesity presented to the ED for recurrent falls within the last 24 hours. Patient had a left total knee replacement 08/02/[address] Rodriguez.? Was discharged home the same day.?Apparently since her discharge from the hospital the patient's verbalized in ED that he felt she has been slurring her words and having word-finding issues.? This has been going on for the past 24-36 hours.? He believed it had improved on arrival to the ED.?He also reported multiple falls over the past 24 hours.? The patient reports that these were due to severe pain in her left knee, balance issues and not necessarily because of weakness or pain in the left knee.? Patient denies hitting her head or LOC.? Patient denies neck pain, joint pain except for the left knee, vision changes, headache, ringing in her ears, chest pain, shortness of breath, abdominal pain, or vomiting. Patient is not on anticoagulation. She does have a history of vertigo but she states this is not vertigo symptoms that is causing her to fall.? Upon admit patient continues to complain of left knee pain 5-8/10, and continued nausea. Patient's vitals upon admit temp 98.1?, BP 182/89, HR 59, R 20, O2 saturation 93% on room air. Patient has no white count, neutrophils 8400, mono 1100, HGB 11.3 cobra 8 2 33.5, mild hyponatremia sodium 131, and mild ROGER BUN 53, creatinine 1.86, GFR 26.4. 07/07/2021 BUN 36 creatinine 1.35, GFR 38.2. Patien t's head CT was negative for any acute intracranial processes, chest x-ray with negative, patient's EKG demonstrated sinus Jonatan with a rate of [address] or T-wave changes. Patient's last echo 10/25/2020 Dr. Wright EF 65-70%, no significant vascular disease. Patient admitted for CVA rule out, secondary to multiple falls, mild ROGER and mild hyponatremia s/p total left knee. Patient's head CT was negative for any acute intracranial processes, chest x-ray with negative, patient's EKG demonstrated sinus Jonatan with a rate of [address] or T-wave changes. Patient's last echo 10/25/2020 Dr. Wright EF 65-70%, no significant vascular disease. Patient admitted for CVA rule out, secondary to multiple falls, mild ROGER and mild hyponatremia s/p total left knee. Patient History Medical History Acute upper GI bleed Anxiety Breast cancer (1992) Breast cancer, left breast (2016) Cataract (2010) Chicken pox Diabetes mellitus (~1987) Fractures GERD (gastroesophageal reflux disease) Hayfever (~1959) History of recurrent ear infection Hyperlipidemia (~1997) Hyperparathyroidism (2013) Hypertension (~1997) Impingement syndrome of right shoulder Left knee DJD Lumbar spine pain Measles Obesity (BMI 30-39.9) ROSCOE (obstructive sleep apnea) Osteopenia Osteoporosis Pneumonia Ribs, multiple fractures Shoulder pain (2014) Sternal fracture (2014) Unilateral primary osteoarthritis, left knee Urinary incontinence (2012) Vertigo (2011) Surgical History (Updated 07/26/21 @ 13:27 by Marian Avila RN) Anesthesia complication H/O lumpectomy H/O mastectomy History of fusion of cervical spine (2011) History of knee replacement (2006) History of lumbar spinal fusion (2009) History of lumbar spinal fusion Hx of bilateral cataract extraction Family & Social History Family History Father Hypertension High cholesterol Pneumonia Mother Hypertension Mental health problem Stroke History of hip surgery Grandfather Heart disease Hypertension High cholesterol Grandmother Hypertension High cholesterol Social History: household members spouse Prior Living Arrangements House Safety & Behavioral: Feels Safe in Current Yes Environment Been Physically Hurt or No Threatened By a Person Suicidal Ideation Description None Suicide Plan Description No Plan Tobacco & Substance use: Smoking Status Never smoker alcohol intake current alcohol intake frequency holiday/special occasion Substance Use Type does not use Meds Home Medications and Allergies Home Medications Medication Instructions Recorded Confirmed Type pen needle, diabetic 31 gauge x #100 each 03/03/18 08/04/21 Rx 5/16 (1st Tier Unifine Pentips) blood sugar diagnostic (Blood #200 each 04/20/19 08/04/21 Rx Glucose Test) metformin 500 mg tablet,extended 1,000 mg PO DAILY tab 01/29/20 08/04/21 Hi story release 24 hr insulin glargine 100 unit/mL (3 14 unit SUBCUT BEDTIME 06/14/20 08/04/21 History mL) subcutaneous pen (Basaglar KwikPen U-100 Insulin) sitagliptin 50 mg tablet (Januvia) 100 mg PO DAILY 06/14/20 08/04/21 History escitalopram oxalate 10 mg tablet 10 mg PO QDAY #90 tab 08/23/20 08/04/21 Rx (Lexapro) cholecalciferol (vitamin D3) 125 5,000 unit PO QDAY #0 cap 09/29/20 08/04/21 History mcg (5,000 unit) capsule coenzyme Q10 100 mg capsule 200 mg PO DAILY cap 09/29/20 08/04/21 History (CoQ-10) amlodipine 10 mg tablet 5 mg PO DAILY #90 tab 11/11/20 08/04/21 Rx gabapentin 300 mg capsule 900 mg PO BEDTIME #270 cap 11/11/20 08/04/21 Rx atorvastatin 10 mg tablet (Lipitor) 10 mg PO HS #90 tab 03/07/21 08/04/21 Rx chlorthalidone 25 mg tablet 12.5 mg PO DAILY tab 07/03/21 08/04/21 History zolpidem 10 mg tablet 5 mg PO BEDTIME PRN #30 tab 07/03/21 08/04/21 Rx carvedilol 25 mg tablet See Rx Instructions .ROUTE 07/11/21 08/04/21 Rx .COMPLEX #60 tab glimepiride 4 mg tablet 8 mg PO QAM 07/26/21 08/04/21 History insulin aspar prot-insulin aspart 5 - 6 unit SUBCUT TID PRN 07/26/21 08/04/21 History 100 unit/mL (70-30) subcutaneous pen (Novolog Mix 70-30FlexPen U-100) losartan 100 mg tablet 100 mg PO BEDTIME 07/26/21 08/04/21 History vitamins A,C,D-aopf-mfqqce 14,320 1 cap PO BID 07/26/21 08/04/21 History unit-226 mg-200 unit capsule (PreserVision AREDS) acetaminophen 325 mg tablet 975 mg PO Q8H PRN 30 Days tab 08/02/21 08/04/21 Rx aspirin 81 mg tablet,delayed 81 mg PO BID #42 tab 08/02/21 08/04/21 Rx release ibuprofen 600 mg tablet 600 mg PO Q6HR PRN 30 Days tab 08/02/21 08/04/21 Rx oxycodone 5 mg tablet 5 mg PO Q4H PRN #50 tab 08/02/21 08/04/21 Rx Allergies Allergy/AdvReac Type Severity Reaction Status Date / Time Anesthetics - Amide Type - Allergy Severe PROJECTILE Verified 07/26/21 13:26 Select A VOMITING [Anesthetics - Amide Type] Anesthetics - Keke Type- Allergy Severe PROJECTILE Verified 07/26/21 13:26 Parabens VOMITING [Anesthetics - Keke Type] Exam Vital Signs (past 8 hours): - 08/04/21 19:30 08/04/21 19:57 08/04/21 20:00 Temperature Pulse Rate 63 60 60 Pulse Rate [Orthostatic Lying] Pulse Rate [Orthostatic Sitting] Pulse Rate [Orthostatic Standing] Respiratory Rate 38 H 21 25 H Blood Pressure 148/70 H Blood Pressure [Orthostatic Lying] Blood Pressure [Orthostatic Sitting] Blood Pressure [Orthostatic Standing] Pulse Oximetry 88 L 94 94 08/04/21 20:01 08/04/21 20:35 08/04/21 21:01 Temperature Pulse Rate 60 70 Pulse Rate [Orthostatic Lying] Pulse Rate [Orthostatic Sitting] Pulse Rate [Orthostatic Standing] Respiratory Rate 20 20 Blood Pressure 155/89 H Blood Pressure [Orthostatic Lying] Blood Pressure [Orthostatic Sitting] Blood Pressure [Orthostatic Standing] Pulse Oximetry 93 95 94 08/04/21 21:48 08/05/21 00:00 08/05/21 00:32 Temperature 99.1 F 99.1 F Pulse Rate 68 70 Pulse Rate [Orthostatic Lying] 70 Pulse Rate [Orthostatic Sitting] 70 Pulse Rate [Orthostatic Standing] 76 Respiratory Rate 18 20 Blood Pressure 139/55 L 154/68 H Blood Pressure [Orthostatic Lying] 154/68 H Blood Pressure [Orthostatic Sitting] 172/70 H Blood Pressure [Orthostatic Standing] 178/72 H Pulse Oximetry 98 95 95 Oxygen Delivery Method Room Air Oxygen Flow Rate 0 Objective Labs Result Diagrams: 08/04/21 18:50 08/04/21 18:50 Labs: Laboratory Results - last 24 hr 08/04/21 08/04/21 08/04/21 18:50 18:50 18:50 WBC 10.6 RBC 3.90 L Hgb 11.3 L Hct 33.5 L MCV 85.8 MCH 29.1 MCHC 33.8 RDW 13.6 Plt Count 270 Neut % (Auto) 78.9 H Lymph % (Auto) 9.0 L [place] % (Auto) 10.0 Eos % (Auto) 1.6 L Baso % (Auto) 0.5 Neut # (Auto) 8400 H Lymph # (Auto) 1000 L [place] # (Auto) 1100 H Eos # (Auto) 200 Baso # (Auto) 0 Sodium 131 L Potassium 3.7 Chloride 97 L Carbon Dioxide 26 BUN 53 H Creatinine 1.86 H Estimated GFR 26.4 L BUN/Creatinine Ratio 28.5 H Glucose 93 Hemoglobin A1c 7.1 H Calcium 9.0 Magnesium Total Bilirubin 0.5 AST 31 ALT 14 Alkaline Phosphatase 58 Troponin I Total Protein 7.4 Albumin 4.0 Globulin 3.4 Albumin/Globulin Ratio 1.2 TSH 08/04/21 08/04/21 08/04/21 18:50 18:50 18:50 WBC RBC Hgb Hct MCV MCH MCHC RDW Plt Count Neut % (Auto) Lymph % (Auto) [place] % (Auto) Eos % (Auto) Baso % (Auto) Neut # (Auto) Lymph # (Auto) [place] # (Auto) Eos # (Auto) Baso # (Auto) Sodium Potassium Chloride Carbon Dioxide BUN Creatinine Estimated GFR BUN/Creatinine Ratio Glucose Hemoglobin A1c Calcium Magnesium 2.1 Total Bilirubin AST ALT Alkaline Phosphatase Troponin I < 0.012 Total Protein Albumin Globulin Albumin/Globulin Ratio TSH 1.55 Assessment & Plan Assessment & Plan narrative: Lois Barakat is a?75-year-old female with a history of IDDM, CKD, HTN, HL, depression, insomnia, and obesity presented to the ED for recurrent falls within the last 24 hours. Patient had a left total knee replacement 08/02/[address] Rodriguez. Patient admitted for CVA rule out, secondary to multiple falls, mild ROGER and mild hyponatremia s/p total left knee. 1. Neurological deficit (slurred speech, multiple falls), acute, present on admission -NIH: 0 -aspiration precautions, bedside swallow,fall precautions -ortho stats -MRI in the morning -PT consult -continue lipitor -TTSH, Troponin 2. ROGER, with hyponatremia, acute, in the setting of CKD stage G3B, chronic, present on admission -sodium 131, and mild ROGER BUN 53, creatinine 1.86, GFR 26.4. 07/07/2021 BUN 36 creatinine 1.35, GFR 38.2. -mild hydration NS at 60 cc/HR -Monitor for fluid overload 3. Essential hypertension, with presenting hypertensive urgency, acute on chronic, present on admission -admitting BP 182/89 -continue losartan, amlodipine, carvedilol, chlorothalidone 4. Insulin-dependent type 2 diabetes with related hyperlipidemia, chronic, present on admission -A1c ordered -continue patient's NovoLog and Lantus insulin -admitted under diabetic protocol -patient education should be provided to stop glimepiride & metformin as the pat ient is on insulin his time. They also may be contributing to possible low blood sugars leading to falls. 5. Depression, with insomnia, chronic, present on admission -continue Donna Hartley 6. Obesity as evidence by BMI of 32.9, acute on chronic, present on admission -dietary consult placed Code status: DNR DNI Surrogate decision maker: Alexis Barakat COVID PCR: Negative COVID vaccination: Unknown DVT/VTE prophylaxis:Lovnox & SCD's Disposition: Patient admitted for observation expected length of stay less than 2 midnights I have utilized all available immediate resources to obtain, update, or review the patient's current medications. I confirmed that the patient's advanced care plan is present, Code status is documented and/or surrogate decision maker is listed in the patient's medical record. Time Spent With Patient Critical Care time: I spent a total of [] minutes of critical care time on this patient's care today; this time is exclusive of procedural time. Quality VTE Deep Vein Thrombosis/Pulmonary Embolism Present on Admission: No
[2021-08-05 05:06] LABS: Alanine Aminotransferase 12 IU/L (<35); Albumin 3.7 g/dL (3.5-5.0); Albumin Globulin Ratio 1.2 (1.0-2.8); Alkaline Phosphatase 65 U/L (38-126); Aspartate Aminotransferase 30 IU/L (14-36); BUN Creatinine Ratio 27.3 (6-22); Bilirubin Total 0.6 mg/dL (0.2-1.3); Blood Urea Nitrogen 47 mg/dL (7-17); Calcium 8.6 mg/dL (8.4-10.2); Carbon Dioxide 28 mmol/L (22-32); Chloride 97 mmol/L (98-107); Estimated Glomerular Filt Rate 28.9 mL/min (>60); Globulin 3.2 g/dL (1.7-4.1); Glucose 93 mg/dL (80-110); HEMOLYSIS < 15 (0-50); Potassium 3.6 mmol/L (3.4-5.1); Sodium 131 mmol/L (137-145); Total Protein 6.9 g/dL (6.3-8.2)
[2021-08-05 05:14] LABS: NT-proBNP (BNP-Adult 18+) 2570 pg/mL (<450)
[2021-08-05 05:22] LABS: Add Manual Diff / Slide Review NO; Basophils Absolute Auto 0 /uL (0-100); Basophils Percent Auto 0.2 % (0-2); Eosinophils Absolute Auto 100 /uL (0-450); Eosinophils Percent Auto 0.7 % (2-4); Hematocrit 30.9 % (36-46); Hemoglobin 10.4 g/dL (12.0-16.0); Lymphocytes Absolute Auto 300 /uL (1100-4500); Lymphocytes Percent Auto 3.4 % (25-40); Mean Corpuscular HGB Conc 33.5 % (30-36); Mean Corpuscular Hemoglobin 28.8 PG (26-34); Mean Corpuscular Volume 85.8 fL (80-100); Monocytes Absolute Auto 500 /uL (0-900); Monocytes Percent Auto 5.1 % (3-14); Neutrophils Absolute Auto 9200 /uL (1500-7000); Neutrophils Percent Auto 90.6 % (50-75); Platelet Count 236 X10^3/uL (150-400); Red Cell Distribution Width 13.9 % (11.6-14.8); White Blood Cell Count 10.2 X10^3/uL (4.5-11.0)
[2021-08-05 08:18] LABS: Bacteria Urine Moderate (10-30); Culture Indicated Urine Cult Not Indicated; RBC Urine 1-5/HPF (0-5/HPF); Squamous Epithelial Cell Urine 0-1 /HPF (0-5/HPF); WBC Urine 1-5/HPF (0-5/HPF)
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
[2021-08-05] MEDS: ACETAMINOPHEN 325 MG TABLET 975 MG PO ×3 (11:47→23:19)
[2021-08-05] MEDS: ASPIRIN EC 81 MG TABLET PO (11:49)
[2021-08-05] MEDS: AMLODIPINE 5 MG TABLET PO (11:49)
[2021-08-05] MEDS: carvediloL 12.5 MG TABLET 25 MG PO ×2 (11:50→21:35)
[2021-08-05] MEDS: ESCITALOPRAM 10 MG TABLET PO (11:51)
[2021-08-05] MEDS: ENOXAPARIN 30 MG/0.3 ML SYRINGE SUBCUT (11:51)
--- NOTE | 2021-08-05 12:00 | PT.IIE ---
Surgical History (Last Updated 07/26/21 @ 13:27 by Marian Avila RN) Anesthesia complication History of knee replacement (2006) Medical History (Last Reviewed 08/05/21 @ 01:42 by Eyad Bustillos DO) Acute upper GI bleed Anxiety Breast cancer (1992) Breast cancer, left breast (2016) Cataract (2010) Chicken pox Diabetes mellitus (~1987) Fractures GERD (gastroesophageal reflux disease) Hayfever (~1959) History of recurrent ear infection Hyperlipidemia (~1997) Hyperparathyroidism (2013) Hypertension (~1997) Impingement syndrome of right shoulder Left knee DJD Lumbar spine pain Measles Obesity (BMI 30-39.9) ROSCOE (obstructive sleep apnea) Osteopenia Osteoporosis Pneumonia Ribs, multiple fractures Shoulder pain (2014) Sternal fracture (2014) Unilateral primary osteoarthritis, left knee Urinary incontinence (2012) Vertigo (2011) Physical Therapy Inpatient Evaluation/Re-Eval M1 PT/OT-IP Prior Functional Status Start: 08/05/21 13:24 Freq: NEEDED Status: Active Protocol: Document 08/05/21 12:00 AB (Rec: 08/05/21 13:37 AB [id number]) Medical Review Prior Functional Status Medical History Reviewed Yes Communication able to make needs known Mobility and Gait pt stated that she had L TKA 3 / and went home same day. pt stated that initially she was doing fine and was able to use her 4WW for mobility at home but spouse stated that he was assisting her at home. prior to knee surgery, pt was independent with all mobiltiies and ambulation without AD Social History Household Members spouse Living Arrangements House Number of Floors (Floors) Two Floors Number of Stairs To Enter/Railing? pt stays on main level of the house no steps to enter Home Environment High Toilet,Walk in Shower, Built-In Shower Seat Home Equipment Front Wheel Walker,Four Wheel Walker,Hand Held Shower,Grab Bars Near Toilet,Grab Bars In Shower M2 PT-IP Current Condition Start: 08/05/21 13:24 Freq: NEEDED Status: Active Protocol: Document 08/05/21 12:00 AB (Rec: 08/05/21 13:37 AB [id number]) Physical Therapy Current Condition Current Condition Evaluation Date 08/05/21 Treatment Diagnosis r/o TIA; s/p L TKA; difficulty in walking Onset Date 08/04/21 M3 PT-IP Subjective Start: 08/05/21 13:24 Freq: NEEDED Status: Active Protocol: Document 08/05/21 12:00 AB (Rec: 08/05/21 13:37 [id number]) Subjective Physical Therapy Visit Type Type Initial Evaluation Visit Start Time 12:00 Visit Stop Time 12:22 Total Visit Minutes 22 Number of TELEVISION SPECIALIST Visits 0 Physical Therapy Visit Comments Patient Comments agreeable to do PT Therapy Pain Assessment Pain When Pain Assessed At Rest Pain Present Pain Present Pain Reported Location Left knee Intensity 5 Scale Used Numeric (0 - 10) Pain Management Techniques Distraction,Modification of Treatment,Re-positioning, Timing of Activity with Medications M4 PT-IP Mobility and Gait Start: 08/05/21 13:24 Freq: NEEDED Status: Active Protocol: Document 08/05/21 12:00 AB (Rec: 08/05/21 13:37 [id number]) PT-Transfer Assessment Sit to and From Stand Sit to and from Stand Moderate Assistance,1 Person Assistance,Use of Upper Extremities Equipment Transfer Assistive Device Gait Belt,Front Wheeled Walker Orthotic/Prosthetic Devices or Brace: No Transfers Transfer Destination Bed,Chair,Bedside Commode Transfer Technique Stand Step Pivot Transfer Ability Level of Assist Moderate Assistance,1 Person Assistance,Use of Upper Extremities Comments Mobility Comments checked on pt and pt sitting on bedside commode. nurse in room. pt completed sit to stand from bedside commode mod A and completed step transfer to EOB using FWW mod A. pt is sleepy but able to answer questions and follow direction but needs increase time to respond and constant cues to stay awake. pt stated that she is dizzy and that she has h/o vertigo and worried that her vertigo is coming back. BP checked: 134/68. pt completed sit to stand mod A and cues and ambulated in room using FWW mod A and cues ~ 8 ft. cued for upright posture and stability. pt presents with antalgic gait with increase RLE dragging during swing phase. c/o increase pain and wants to sit down. pt agreed to sit up on chair. positioned pt on chair. call light and table placed within reach. informed nurse regarding pt's dizziness and concern of vertigo. Gait Assessment Gait Gait Assistance Required: Moderate Assistance,1 Person Assist Distance (Feet) 8 Able to Maintain Weight Bearing Status Yes During Gait Assistive Devices Assistive Device Gait Belt,Front Wheeled Walker Orthotic/Prosthetic Devices or Brace: No Gait Deviations General Gait Pattern Decreased Stride Length, Decreased Feet Clearance,Step- to Gait,Wide Based Gait Factors Limiting Gait Function Factors Limiting Gait Function Decreased Activity Tolerance, Decreased Strength,Difficulty Following Directions,Limited Range of Motion,Pain,Poor Balance,Poor Safety Awareness PT-Balance Assessment Sitting Balance and Reactions Static Sitting Balance Ability Good Dynamic Sitting Balance Ability Fair Standing Balance and Reactions Static Standing Balance Ability Fair Dynamic Standing Balance Ability Poor Device Used FWW M5 PT-IP Objective Assessments Start: 08/05/21 13:24 Freq: NEEDED Status: Active Protocol: Document 08/05/21 12:00 AB (Rec: 08/05/21 13:37 AB [id number]) Orientation Orientation/Cognition Orientation Name,Place,Situation Language Function Ability No Deficits Noted Safety Awareness Decreased Safety Awareness Memory Description Short Term Impaired Gross Range of Motion Lower Extremity ROM Assessment Within Functional Limits Strength Lower Extremity Strength Assessment Left Impaired Hip 3/5 Knee 3+/5 Sensation Assessment Sensation Gross Sensation WNL Muscle Tone Muscle Tone WNL Yes M6 PT-IP Treatment Start: 08/05/21 13:24 Freq: NEEDED Status: Active Protocol: Document 08/05/21 12:00 AB (Rec: 08/05/21 13:37 AB [email or web address]) Physical Therapy Treatment Education Education Provided Safety M7 PT-IP Assessment and Plan Start: 08/05/21 13:24 Freq: NEEDED Status: Active Protocol: Document 08/05/21 12:00 AB (Rec: 08/05/21 13:37 AB [email or web address]) PT Summary Assessment and Plan Potential Rehabilitation Potential Fair Status of Condition at Evaluation Evolving Summary Impairments Pain,ROM,Strength,Balance, Coordination,Sensation,Tone, Cognition,Bed Mobility, Transfers,Gait,Activity Tolerance Assessment Summary pt requiring mod A with mobility and unable to tolerate much with c/o L knee pain. pt plans to go home with spouse to assist her. will conduct caregiver training when appropriate but at this time, pt will require SNF rehab. will continue to assess progress. Goals Bed Mobility Goal Standby Assistance Transfer Goal Standby Assistance,Front Wheeled Walker Gait Goal Standby Assistance,Front Wheel Walker Gait Distance 200 Days to Meet Goals 5 Frequency of Treatment Frequency Of Treatment Twice a Day Treatment Plan Physical Therapy Treatment Plan Bed Mobility Training,Transfer Training,Gait Training, Therapeutic Exercise,Balance Retraining,Post Op Education, Discharge Planning,Hot or Cold Pack,Neuromuscular Re-ed, Coordination Retraining,Manual Therapy Precautions Other Precautions falls Recommendations To Nursing Amount of Assist Needed 1 Person Assist Discharge Recommendations PT Discharge Recommendations Home with 24/12 Assist Available,Home Health,SNF Rehab,Home vs SNF Transportation Needs at Discharge Private Vehicle,Wheelchair/ Cabulance
--- NOTE | 2021-08-05 13:22 | OT.IP.EVAL ---
Past Medical History (Last Reviewed 08/05/21 @ 01:42 by Eyad Bustillos DO) Acute upper GI bleed Anxiety Breast cancer (1992) Breast cancer, left breast (2016) Cataract (2010) Chicken pox Diabetes mellitus (~1987) Fractures GERD (gastroesophageal reflux disease) H/O lumpectomy H/O mastectomy Hayfever (~1959) History of fusion of cervical spine (2011) History of lumbar spinal fusion (2009) History of lumbar spinal fusion History of recurrent ear infection Hx of bilateral cataract extraction Hyperlipidemia (~1997) Hyperparathyroidism (2013) Hypertension (~1997) Impingement syndrome of right shoulder Left knee DJD Lumbar spine pain Measles Obesity (BMI 30-39.9) ROSCOE (obstructive sleep apnea) Osteopenia Osteoporosis Pneumonia Ribs, multiple fractures Shoulder pain (2014) Sternal fracture (2014) Unilateral primary osteoarthritis, left knee Urinary incontinence (2012) Vertigo (2011) Surgical History (Last Updated 07/26/21 @ 13:27 by Marian Avila RN) Anesthesia complication H/O lumpectomy H/O mastectomy History of fusion of cervical spine (2011) History of knee replacement (2006) History of lumbar spinal fusion (2009) History of lumbar spinal fusion Hx of bilateral cataract extraction Occupational Therapy Inpatient Evaluation/Re-Eval M1 PT/OT-IP Prior Functional Status Start: 08/05/21 13:24 Freq: NEEDED Status: Active Protocol: Document 08/05/21 13:22 [facility] (Rec: 08/05/21 14:13 [facility] [id number]) Medical Review Prior Functional Status Medical History Reviewed Yes Communication able to make needs known Mobility and Gait pt stated that she had L TKA 3 / and went home same day. pt stated that initially she was doing fine and was able to use her 4WW for mobility at home but spouse stated that he was assisting her at home. prior to knee surgery, pt was independent with all mobiltiies and ambulation without AD Activities of Daily Living and IADL's Pt states prior to knee surgery was completely independent with all ADl and IADl needs. Social History Household Members spouse Living Arrangements House Number of Floors (Floors) Two Floors Number of Stairs To Enter/Railing? pt stays on main level of the house no steps to enter Home Environment High Toilet,Walk in Shower, Built-In Shower Seat Home Equipment Front Wheel Walker,Four Wheel Walker,Hand Held Shower,Grab Bars Near Toilet,Grab Bars In Shower Additional Social History Comment Pt states has a roll in shower . M2 OT-IP Current Condition Start: 08/05/21 14:00 Freq: Status: Active Protocol: Document 08/05/21 13:22 [facility] (Rec: 08/05/21 14:13 [facility] [id number]) Occupational Therapy Current Condition Current Condition Evaluation Date 08/05/21 Treatment Diagnosis recent S/P L TKA 08/02/21, fall, UTI Diagnosis Onset Date 08/04/21 M3 OT- IP Subjective and Pain Start: 08/05/21 14:00 Freq: Status: Active Protocol: Document 08/05/21 13:22 [facility] (Rec: 08/05/21 14:13 [facility] [id number]) OT- Subjective Occupational Therapy Visit Type Type Initial Evaluation Visit Start Time 13: Visit Stop Time 13:52 Total Visit Minutes 30 Occupational Therapy Visit Comments Patient Comments Pt agreed to get up for OT and nursing aid present to get orthostatic readings. supine 117/50, sitting 117/51, and standing 118/46- pt states feels woozy throughout . Patient/Caregiver Goals To go home. OT Pain Assessment Pain When Pain Assessed At Rest Pain Present Pain Present Denied Pain M4 OT- IP ADL's Start: 08/05/21 14:00 Freq: Status: Active Protocol: Document 08/05/21 13:22 [facility] (Rec: 08/05/21 14:13 [facility] [id number]) OT [id number] Comments OT Self-Feeding Comments NOt at meal time. OT ADL-Grooming Comments OT Grooming Comments NOt performed. OT ADL-Oral Care Comments Oral Care Comments Not performed. OT ADL-Dressing General Eval Lower Body Dressing Ability Maximum Assistance Comments OT Dressing Comments Pt unable to reach down to do LB dressing needs and pt states has a foundation engineer at home and issued a long handled shoe horn and sock aid started training. Emphasized to pt to dress her left leg first and take it out last. OT ADL-Toileting Comments OT Toileting Comments Pt just finished using the BSC with nursing aid. OT ADL-Bathing Comments OT Bathing Comments Not performed. M5 OT- IP IADL's Start: 08/05/21 14:00 Freq: Status: Active Protocol: Document 08/05/21 13:22 [facility] (Rec: 08/05/21 14:13 [facility] [id number]) OT-Instrumental Activities of Daily Living Home Safety Awareness Home Safety Comments Pt a little groggy and feels that she is not thinking well at this time, in addition pt has UTI. At this time would be best for her to assist her with all her needs. M6 OT- IP Functional Cognition Start: 08/05/21 14:00 Freq: Status: Active Protocol: Document 08/05/21 13:22 [facility] (Rec: 08/05/21 14:13 [facility] [id number]) Cognitive Factors Limiting Selfcare Function Cognitive Ability Level of Alertness Drowsy Patient Orientation Name,Place,Situation Attention Span Ability Capable of Focused Attention, Unable to Sustain Attention Ability to Follow Commands Able to Follow One Step Commands with Increased Time, Able to Follow One Step Commands with Repetition Cognitive Comments Cognitive Assessment Comments Pt very sleepy and having difficulty to keep her eyes open. Pt scored 21/30 on the SLUMS earlier with REGISTERED NURSE CARDIAC. To continue to monitor cognitive needs as pt clears from UTI. OT- Vision and Hearing OT- Hearing Assessment OT- Hearing Assessment WFL OT- Vision Assessment Visual Acuity Glasses All The Time M7 OT- IP Mobility and Balance Start: 08/05/21 14:00 Freq: Status: Active Protocol: Document 08/05/21 13:22 [facility] (Rec: 08/05/21 14:13 [facility] [id number]) OT- Bed Mobility Assessment Rolling Level of Assistance Standby Assistance,Bedrails Supine to Sit Supine to Sit Assist Minimal Assistance Sit to Supine Sit to Supine Assist Minimal Assistance OT-Transfer Assessment Sit to and From Stand Sit to and from Stand Minimal Assistance Transfers Transfer Ability Minimal Assistance,1 Person Assistance Comments Mobility Comments CECILIO to help get upright and CECILIO to help get her left leg back into bed. Pt prefers to do log rolling due to her back pain. CECILIO to stand and tends to use the back of her legs on the bed to stand and able to take a few side steps up to rachel head of the bed with CECILIO for balance and FWW control. OT- Balance Assessment Sitting Balance and Reactions Static Sitting Balance Ability Good Dynamic Sitting Balance Ability Fair Standing Balance and Reactions Static Standing Balance Ability Fair M8 OT- IP Objective Assessments Start: 08/05/21 14:00 Freq: Status: Active Protocol: Document 08/05/21 13:22 [facility] (Rec: 08/05/21 14:13 [facility] [id number]) OT Gross Range of Motion Upper Extremity Range of Motion Assessment Within Functional Limits OT Strength Comments Strength Comments BUE 4/5 OT- Coordination Assessment Upper Extremity Finger to Nose Test Within Functional Limits Comments Coordination Comments Pt able to do on second attempt for both fingers. OT-Muscle Tone Assessment Muscle Tone WNL Yes M9 OT- IP Assessment and Plan Start: 08/05/21 14:00 Freq: Status: Active Protocol: Document 08/05/21 13:22 [facility] (Rec: 08/05/21 14:13 [facility] [id number]) OT Summary Assessment and Plan Potential Rehabilitation Potential Good Analytic Complexity at Evaluation Moderate Summary OT Impairments Balance,Functional Cognition, Functional Mobility,Dressing, Toileting,Bathing,Toilet Transfers,Shower Transfers, Activity Tolerance Progress Towards Goals Slow Progress due to Medical Issues,Slow Progress due to Cognition Assessment Summary Pt MOD complexity due to UTI and recent S/p LTKA on 08/02/21. Pt's feel that she is not at her baseline for thinking and scored 21/30 with REGISTERED NURSE CARDIAC earlier. Pt to go home with her when medically stable . Goals Grooming Goal Independent Dressing Goal Standby Assistance Toileting Goal Independent Bathing Goal Standby Assistance Toilet Transfer Goal Independent Shower Transfer Goal Independent Days to Meet Goals 7 Frequency of Treatment Frequency Of Treatment Once a Day Treatment Plan OT Treatment Plan ADL Training,Functional Cognition Training,Functional Mobility,Patient/Family Education,Discharge Planning Other Treatment Recommendations and Next Shower Treatment Focus Discharge Recommendations OT Discharge Recommendations Home with 24/ Assist Available Transportation Needs at Discharge Private Vehicle
--- NOTE | 2021-08-05 13:48 | P.PN_ITS ---
Subjective Subjective Date Patient Seen: 08/05/21 Interval history: 75-year-old female with a history of IDDM, CKD, HTN, HL, depression, insomnia, and obesity presented to the ED for recurrent falls within the last 24 hours. Patient has also been slurring words and confused. She had a left total knee replacement 08/02/[address] Rodriguez. Patient has been quite sleepy this morning dozing off in mid sentence. Additionally she is confused and rambling at times. Oxycodone given for postop knee pain was discontinued on this admission. Brain MR does not show CVA. Exam Vital Signs (past 8 hours): - 08/05/21 07:30 08/05/21 09:00 08/05/21 09:22 Temperature 97.8 F Pulse Rate 66 Respiratory Rate 19 Blood Pressure 143/56 H Pulse Oximetry 92 94 93 Oxygen Delivery Method Room Air Oxygen Flow Rate 0 Narrative Exam Narrative: General: Lethargic female NAD Lungs: Breathing nonlabored Abdomen: Soft Extremities:no edema Neurological: Sleepy, slight slurred speech, at times rambling and incoherent Objective Labs Result Diagrams: 08/05/21 04:42 08/05/21 04:42 Labs: Laboratory Results - last 24 hr 08/04/21 08/04/21 08/04/21 18:50 18:50 18:50 WBC 10.6 RBC 3.90 L Hgb 11.3 L Hct 33.5 L MCV 85.8 MCH 29.1 MCHC 33.8 RDW 13.6 Plt Count 270 Neut % (Auto) 78.9 H Lymph % (Auto) 9.0 L Hickman % (Auto) 10.0 Eos % (Auto) 1.6 L Baso % (Auto) 0.5 Neut # (Auto) 8400 H Lymph # (Auto) 1000 L Hickman # (Auto) 1100 H Eos # (Auto) 200 Baso # (Auto) 0 Sodium 131 L Potassium 3.7 Chloride 97 L Carbon Dioxide 26 BUN 53 H Creatinine 1.86 H Estimated GFR 26.4 L BUN/Creatinine Ratio 28.5 H Glucose 93 Hemoglobin A1c 7.1 H Calcium 9.0 Magnesium Total Bilirubin 0.5 AST 31 ALT 14 Alkaline Phosphatase 58 Troponin I NT-Pro-B Natriuret Pep Total Protein 7.4 Albumin 4.0 Globulin 3.4 Albumin/Globulin Ratio 1.2 TSH Urine RBC Urine WBC Ur Squamous Epith Cells Urine Bacteria Ur Culture Indicated? 08/04/21 08/04/21 08/04/21 18:50 18:50 18:50 WBC RBC Hgb Hct MCV MCH MCHC RDW Plt Count Neut % (Auto) Lymph % (Auto) Hickman % (Auto) Eos % (Auto) Baso % (Auto) Neut # (Auto) Lymph # (Auto) Hickman # (Auto) Eos # (Auto) Baso # (Auto) Sodium Potassium Chloride Carbon Dioxide BUN Creatinine Estimated GFR BUN/Creatinine Ratio Glucose Hemoglobin A1c Calcium Magnesium 2.1 Total Bilirubin AST ALT Alkaline Phosphatase Troponin I < 0.012 NT-Pro-B Natriuret Pep Total Protein Albumin Globulin Albumin/Globulin Ratio TSH 1.55 Urine RBC Urine WBC Ur Squamous Epith Cells Urine Bacteria Ur Culture Indicated? 08/05/21 08/05/21 08/05/21 04:42 04:42 07:02 WBC 10.2 RBC 3.60 L Hgb 10.4 L Hct 30.9 L MCV 85.8 MCH 28.8 MCHC 33.5 RDW 13.9 Plt Count 236 Neut % (Auto) 90.6 H Lymph % (Auto) 3.4 L Hickman % (Auto) 5.1 Eos % (Auto) 0.7 L Baso % (Auto) 0.2 Neut # (Auto) 9200 H Lymph # (Auto) 300 L Hickman # (Auto) 500 Eos # (Auto) 100 Baso # (Auto) 0 Sodium 131 L Potassium 3.6 Chloride 97 L Carbon Dioxide 28 BUN 47 H Creatinine 1.72 H Estimated GFR 28.9 L BUN/Creatinine Ratio 27.3 H Glucose 93 Hemoglobin A1c Calcium 8.6 Magnesium Total Bilirubin 0.6 AST 30 ALT 12 Alkaline Phosphatase 65 Troponin I NT-Pro-B Natriuret Pep 2570 H Total Protein 6.9 Albumin 3.7 Globulin 3.2 Albumin/Globulin Ratio 1.2 TSH Urine RBC 1-5/hpf Urine WBC 1-5/hpf Ur Squamous Epith Cells 0-1 /hpf Urine Bacteria Moderate (10-30) H Ur Culture Indicated? Cult not indicated PFSH Medical History Acute upper GI bleed Anxiety Breast cancer (1992) Breast cancer, left breast (2016) Cataract (2010) Chicken pox Diabetes mellitus (~1987) Fractures GERD (gastroesophageal reflux disease) Hayfever (~1960) History of recurrent ear infection Hyperlipidemia (~1997) Hyperparathyroidism (2014) Hypertension (~1997) Impingement syndrome of right shoulder Left knee DJD Lumbar spine pain Measles Obesity (BMI 30-39.9) ROSOCE (obstructive sleep apnea) Osteopenia Osteoporosis Pneumonia Ribs, multiple fractures Shoulder pain (2015) Sternal fracture (2014) Unilateral primary osteoarthritis, left knee Urinary incontinence (2012) Vertigo (2011) Surgical History (Updated 07/26/21 @ 13:27 by Marian Avila RN) Anesthesia complication H/O lumpectomy H/O mastectomy History of fusion of cervical spine (2011) History of knee replacement (2006) History of lumbar spinal fusion (2009) History of lumbar spinal fusion Hx of bilateral cataract extraction Family History Father Hypertension High cholesterol Pneumonia Mother Hypertension Mental health problem Stroke History of hip surgery Grandfather Heart disease Hypertension High cholesterol Grandmother Hypertension High cholesterol Social History marital status: household members: spouse occupational status: other Smoking Status: Never smoker alcohol intake: current substance use type: does not use Assessment & Plan Assessment & Plan narrative: 75-year-old female with a history of IDDM, CKD, HTN, HL, depression, insomnia, and obesity presented to the ED for recurrent falls, slurred speech, confusion within the last 24 hours. Patient had a left total knee replacement 08/02/[address] Rodriguez. 1. Acute metabolic encephalopathy -patient with slurring of words and at times rambling speech and clearly confused from baseline -brain MR negative for stroke or bleed, has stenosis in MCA -patient was hypoglycemic at home which may be contributing -discontinued postop oxycodone -discontinued zolpidem which patient takes just 1/3 tablet once a month -monitor blood sugars -rule out UTI, UA with many bacteria, 0-1 WBC, started Bactrim DS while awaiting urine culture 2. Insulin-dependent type 2 diabetes with hypoglycemia -low blood sugars in 60s at home probably because not eating -on Basaglar 14 units q.p.m. and NovoLog 5-6 units with meals at home, also on glimepiride, Januvia and metformin -held oral medications, Lantus 10 units HS and NovoLog low-dose sliding scale ordered for here 3. Acute kidney injury, prerenal -sodium 131, and mild ROGER BUN 53, creatinine 1.86, GFR 26.4.? 07/07/2021 BUN 36 creatinine 1.35, GFR 38.2. -received IV hydration, encourage p.o. fluid intake -hold losartan and chlorthalidone until renal function recovers -continue amlodipine and carvedilol, continue atorvastatin -stop ibuprofen, avoid NSAIDs -recheck labs in a.m. 4. Depression, with insomnia, chronic, present on admission -continue Lexapro 5. Status post left total knee -PT consult for recurrent falls -Tylenol scheduled, ice packs as needed left knee 6. Anemia postop knee, stable DVT prophylaxis: Lovenox Time Spent With Patient Critical Care time: I spent a total of [] minutes of critical care time on this patient's care today; this time is exclusive of procedural time. Quality VTE Deep Vein Thrombosis/Pulmonary Embolism Present on Admission: No
[2021-08-05] MEDS: TRIMETH/SULFA 160/800 (DS) TABLET 1 TAB PO ×2 (14:48→21:35)
--- NOTE | 2021-08-05 16:16 | PT.IPTN ---
Physical Therapy Treatment Note M2 PT-IP Current Condition Start: 08/05/21 13:24 Freq: NEEDED Status: Active Protocol: Document 08/05/21 12:00 AB (Rec: 08/05/21 13:37 AB [email or web address]) Physical Therapy Current Condition Current Condition Evaluation Date 08/05/21 Treatment Diagnosis r/o TIA; s/p L TKA; difficulty in walking Onset Date 08/04/21 M3 PT-IP Subjective Start: 08/05/21 13:24 Freq: NEEDED Status: Active Protocol: Document 08/05/21 15:53 KS (Rec: 08/05/21 17:09 KS [id number]) Subjective Physical Therapy Visit Type Type Treatment Note Visit Start Time 15:53 Visit Stop Time 16:16 Total Visit Minutes 23 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 of 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 Visits 1 Physical Therapy Visit Comments Patient Comments agreeable to do PT Therapy Pain Assessment Pain When Pain Assessed During Mobility Pain Present Pain Present Pain Reported Location Left knee Scale Used not quantified Pain Management Techniques Distraction,Elevation, Modification of Treatment,Re- positioning M4 PT-IP Mobility and Gait Start: 08/05/21 13:24 Freq: NEEDED Status: Active Protocol: Document 08/05/21 15:53 KS (Rec: 08/05/21 17:09 KS [id number]) PT-Bed Mobility Assessment Supine to Sit Supine to Sit Minimal Assistance,Head of Bed Elevated,Bedrails Sit to Supine Sit to Supine Minimal Assistance,1 Person Assistance Scooting Scooting to Edge of Bed Minimal Assistance PT-Transfer Assessment Sit to and From Stand Sit to and from Stand Minimal Assistance,1 Person Assistance,Use of Upper Extremities Equipment Transfer Assistive Device Gait Belt,Front Wheeled Walker Orthotic/Prosthetic Devices or Brace: No Transfers Transfer Destination Bed Transfer Technique Pt ambulated w/ FWW Transfer Ability Level of Assist Minimal Assistance,1 Person Assistance,Use of Upper Extremities Comments Mobility Comments Pt reporting fatigue and needing motivation to participate this PM. Min A for sup<>sit and scooting to EOB. Pt w/ retrolean initially but then able to maintain seated balance. Min A and cues for hand placement for sit<>stand w/ FWW. Pt ambulated ~20 ft in room w/ FWW but then c/o increased pain and fatigue and requested to not walk further but agreed to exercises seated EOB. She performed ankle pumps, LAQ, and seated marches. Min A for sit<>sup and pt then completed glute sets, heel slides, and SLR. Max A to scoot up in bed. Provided LE exercise handout and pt left in bed w/ all needs in reach. Gait Assessment Gait Gait Assistance Required: Contact Guard Assist,1 Person Assist Distance (Feet) 20 Able to Maintain Weight Bearing Status Yes During Gait Assistive Devices Assistive Device Gait Belt,Front Wheeled Walker Orthotic/Prosthetic Devices or Brace: No Gait Deviations General Gait Pattern Decreased Stride Length, Decreased Feet Clearance,Step- to Gait,Wide Based Gait Factors Limiting Gait Function Factors Limiting Gait Function Decreased Activity Tolerance, Decreased Strength,Difficulty Following Directions,Limited Range of Motion,Pain,Poor Balance,Poor Safety Awareness Comments Gait Comments Pt able to ambulate 20 ft w/ FWW but limited by pain and fatigue. Pt stating she knows she needs to ambulate further and is motivated by scheduled trip to [place] however states she is just unable to do more today. Stair Climbing Assessment Comments Stair Climbing Comments Not assessed. PT-Balance Assessment Sitting Balance and Reactions Static Sitting Balance Ability Good Dynamic Sitting Balance Ability Fair Standing Balance and Reactions Static Standing Balance Ability Fair Dynamic Standing Balance Ability Fair Device Used FWW M5 PT-IP Objective Assessments Start: 08/05/21 13:24 Freq: NEEDED Status: Active Protocol: Document 08/05/21 12:00 AB (Rec: 08/05/21 13:37 AB [email or web address]) Orientation Orientation/Cognition Orientation Name,Place,Situation Language Function Ability No Deficits Noted Safety Awareness Decreased Safety Awareness Memory Description Short Term Impaired Gross Range of Motion Lower Extremity ROM Assessment Within Functional Limits Strength Lower Extremity Strength Assessment Left Impaired Hip 3/5 Knee 3+/5 Sensation Assessment Sensation Gross Sensation WNL Muscle Tone Muscle Tone WNL Yes M6 PT-IP Treatment Start: 08/05/21 13:24 Freq: NEEDED Status: Active Protocol: Document 08/05/21 15:53 KS (Rec: 08/05/21 17:09 KS [id number]) Physical Therapy Treatment Exercises Exercises Ankle Pumps,Gluteal Sets,Quad Sets,Heel Slides,Straight Leg Raises,Seated Knee Flexion/ Extension Education Education Provided Safety Other Treatments Other Treatment Performed Provided LE exercise sheet to promote ROM, blood flow, and strengthening. M7 PT-IP Assessment and Plan Start: 08/05/21 13:24 Freq: NEEDED Status: Active Protocol: Document 08/05/21 15:53 KS (Rec: 08/05/21 17:09 KS [id number]) PT Summary Assessment and Plan Potential Rehabilitation Potential Fair Status of Condition at Evaluation Evolving Summary Impairments Pain,ROM,Strength,Balance, Coordination,Sensation,Tone, Cognition,Bed Mobility, Transfers,Gait,Activity Tolerance Assessment Summary Pt Min A for sup<>Sit, scooting, and sit<>stand. Able to ambulate short distance ~ 20 ft w/ FWW but limited by pain and fatigue. Good tolerance for LE strengthening exercises and appreciative of handout provided. Pt has outpatient rehab scheduled however may require SNF depending on progress. Will continue to assess and complete caregiver training if appropriate. Goals Bed Mobility Goal Standby Assistance Transfer Goal Standby Assistance,Front Wheeled Walker Gait Goal Standby Assistance,Front Wheel Walker Gait Distance 200 Days to Meet Goals 5 Frequency of Treatment Frequency Of Treatment Twice a Day Treatment Plan Physical Therapy Treatment Plan Bed Mobility Training,Transfer Training,Gait Training, Therapeutic Exercise,Balance Retraining,Post Op Education, Discharge Planning,Hot or Cold Pack,Neuromuscular Re-ed, Coordination Retraining,Manual Therapy Precautions Other Precautions falls Recommendations To Nursing Amount of Assist Needed 1 Person Assist Discharge Recommendations PT Discharge Recommendations Home with 24/12 Assist Available,Home Health,SNF Rehab,Home vs SNF Transportation Needs at Discharge Private Vehicle,Wheelchair/ Cabulance
--- NOTE | 2021-08-05 19:39 | PC.NURSE ---
Pt had been very sleepy for the first half of the shift today. She would start to fall asleep talking to nursing staff with mumbled speech and eyes closed. Pt was easily arousable and speech would become clear again. Pt became more clear mentally later this afternoon with a lack of sleepiness. This evening at approx. 1840, Pt had a large black and tarry stool. Nursing staff guaic'd this stool with positive results. Dr. Burgess was notified and new orders placed. MESSI Lam was given this info in report to continue care and fufill orders.
[2021-08-05 21:19] LABS: Hematocrit 27.3 % (36-46); Hemoglobin 9.4 g/dL (12.0-16.0)
[2021-08-05] MEDS: GABAPENTIN 300 MG CAPSULE 900 MG PO (21:35)
[2021-08-05] MEDS: INSULIN GLARGINE 100 UNIT/ML 3ML PEN 10 UNIT SUBCUT (21:38)
[2021-08-05] MEDS: LOSARTAN 50 MG TABLET 100 MG PO (21:38)
[2021-08-05] MEDS: PANTOPRAZOLE 40 MG VIAL IV (22:58)
[2021-08-05] MEDS: SODIUM CHLORIDE 0.9% 1,000 ML 100 ML IV (22:59)
[2021-08-06] VITALS (11 sets, daily range): BP systolic 128–162; BP diastolic 49–77; PULSE 66–79; RESP 15–20; TEMP 36.6–37.3; O2SAT 94–99
[2021-08-06 05:31] LABS: Add Manual Diff / Slide Review NO; Basophils Absolute Auto 0 /uL (0-100); Basophils Percent Auto 0.5 % (0-2); Eosinophils Absolute Auto 200 /uL (0-450); Eosinophils Percent Auto 2.6 % (2-4); Hematocrit 25.7 % (36-46); Hemoglobin 8.8 g/dL (12.0-16.0); Lymphocytes Absolute Auto 900 /uL (1100-4500); Lymphocytes Percent Auto 10.6 % (25-40); Mean Corpuscular HGB Conc 34.1 % (30-36); Mean Corpuscular Hemoglobin 28.9 PG (26-34); Monocytes Absolute Auto 800 /uL (0-900); Monocytes Percent Auto 9.2 % (3-14); Neutrophils Absolute Auto 6400 /uL (1500-7000); Neutrophils Percent Auto 77.1 % (50-75); Platelet Count 212 X10^3/uL (150-400); Red Blood Cell Count 3.02 X10^6/uL (4.0-5.2); Red Cell Distribution Width 13.6 % (11.6-14.8); White Blood Cell Count 8.3 X10^3/uL (4.5-11.0)
[2021-08-06 05:44] LABS: BUN Creatinine Ratio 33.8 (6-22); Blood Urea Nitrogen 48 mg/dL (7-17); Calcium 8.6 mg/dL (8.4-10.2); Carbon Dioxide 28 mmol/L (22-32); Chloride 103 mmol/L (98-107); Estimated Glomerular Filt Rate 36.1 mL/min (>60); Glucose 76 mg/dL (80-110); HEMOLYSIS < 15 (0-50); Potassium 3.2 mmol/L (3.4-5.1); Sodium 134 mmol/L (137-145)
[2021-08-06 06:44] LABS: COVID19 - ADMIT (NP swab/PCR) Negative (Negative)
[2021-08-06] MEDS: PANTOPRAZOLE 40 MG VIAL IV ×2 (08:48→21:39)
[2021-08-06] MEDS: ESCITALOPRAM 10 MG TABLET PO (08:48)
[2021-08-06] MEDS: carvediloL 12.5 MG TABLET 25 MG PO ×2 (08:48→21:37)
[2021-08-06] MEDS: ACETAMINOPHEN 325 MG TABLET 975 MG PO ×2 (08:48→15:05)
[2021-08-06] MEDS: POTASSIUM CHLORIDE IN WATER 10 MEQ/100 ML PIGGYBACK 100 MEQ IV ×2 (08:51→10:25)
[2021-08-06] MEDS: TRIMETH/SULFA 160/800 (DS) TABLET 1 TAB PO ×2 (08:54→21:36)
[2021-08-06] MEDS: SODIUM CHLORIDE 0.9% 1,000 ML 100 ML IV ×2 (09:04→19:23)
--- NOTE | 2021-08-06 10:02 | P.CONS_ITS ---
History of Present Illness Consult details Date Patient Seen: 08/06/21 Time Patient Seen: 10:02 Chief complaint: LOC, Post Surgery Reason for consult: Anemia Narrative: Lois is a 75-year-old woman who had a recent left total knee replacement by Dr. Rodriguez on August 02, 2021 and was readmitted for slurred speech and falls. She was noted to have melena and a drop in hemoglobin as well. She had been taking aspirin and ibuprofen. She had an EGD a year ago by Dr. Bridges with findings of gastritis. She believes she had a colonoscopy about 5 years ago. Meds Home Medications and Allergies Home Medications Medication Instructions Recorded Confirmed Type pen needle, diabetic 31 gauge x #100 each 03/03/18 08/04/21 Rx /16 (1st Tier Unifine Pentips) blood sugar diagnostic (Blood #200 each 04/20/19 08/04/21 Rx Glucose Test) metformin 500 mg tablet,extended 1,000 mg PO DAILY tab 01/29/20 08/04/21 History release 24 hr insulin glargine 100 unit/mL (3 14 unit SUBCUT BEDTIME 06/14/20 08/04/21 History mL) subcutaneous pen (Basaglar KwikPen U-100 Insulin) sitagliptin 50 mg tablet (Januvia) 100 mg PO DAILY 06/14/20 08/04/21 History escitalopram oxalate 10 mg tablet 10 mg PO QDAY #90 tab 08/23/20 08/04/21 Rx (Lexapro) cholecalciferol (vitamin D3) 125 5,000 unit PO QDAY #0 cap 09/29/20 08/04/21 Hi story mcg (5,000 unit) capsule coenzyme Q10 100 mg capsule 200 mg PO DAILY cap 09/29/20 08/04/21 History (CoQ-10) amlodipine 10 mg tablet 5 mg PO DAILY #90 tab 11/11/20 08/04/21 Rx gabapentin 300 mg capsule 900 mg PO BEDTIME #270 cap 11/11/20 08/04/21 Rx atorvastatin 10 mg tablet (Lipitor) 10 mg PO HS #90 tab 03/07/21 08/04/21 Rx chlorthalidone 25 mg tablet 12.5 mg PO DAILY tab 07/03/21 08/04/21 History zolpidem 10 mg tablet 5 mg PO BEDTIME PRN #30 tab 07/03/21 08/04/21 Rx carvedilol 25 mg tablet See Rx Instructions .ROUTE 07/11/21 08/04/21 Rx .COMPLEX #60 tab glimepiride 4 mg tablet 8 mg PO QAM 07/26/21 08/04/21 History losartan 100 mg tablet 100 mg PO BEDTIME 07/26/21 08/04/21 History vitamins A,C,S-evqh-nyjrxt 14,320 1 cap PO BID 07/26/21 08/04/21 History unit-226 mg-200 unit capsule (PreserVision AREDS) acetaminophen 325 mg tablet 975 mg PO Q8H PRN 30 Days tab 08/02/21 08/04/21 Rx aspirin 81 mg tablet,delayed 81 mg PO BID #42 tab 08/02/21 08/04/21 Rx release ibuprofen 600 mg tablet 600 mg PO Q6HR PRN 30 Days tab 08/02/21 08/04/21 Rx oxycodone 5 mg tablet 5 mg PO Q4H PRN #50 tab 08/02/21 08/04/21 Rx insulin aspart U-100 100 unit/mL 5 - 6 unit SUBCUT TIDWM 08/05/21 08/05/21 History (3 mL) subcutaneous pen (Novolog Flexpen U-100 Insulin aspart) Allergies Allergy/AdvReac Type Severity Reaction Status Date / Time Anesthetics - Amide Type - Allergy Severe PROJECTILE Verified 07/26/21 13:26 Select A VOMITING [Anesthetics - Amide Type] Anesthetics - Keke Type- Allergy Severe PROJECTILE Verified 07/26/21 13:26 Parabens VOMITING [Anesthetics - Keke Type] Exam Vital Signs (past 8 hours): - 08/06/21 03:00 08/06/21 05:00 08/06/21 07:45 Temperature 99.1 F 97.9 F Pulse Rate 68 66 Respiratory Rate 15 17 Blood Pressure 135/77 162/72 H Pulse Oximetry 96 96 96 Oxygen Delivery Method Room Air Oxygen Flow Rate 0 Const General: comfortable Resp Effort & Inspection: normal respiratory effort GI Palpation: soft Objective Labs Result Diagrams: 08/06/21 05:20 08/06/21 05:20 Labs: Laboratory Results - last 24 hr 08/05/21 08/06/21 08/06/21 21:02 05:20 05:20 WBC 8.3 RBC 3.02 L Hgb 9.4 L 8.8 L Hct 27.3 L 25.7 L MCV 85.0 MCH 28.9 MCHC 34.1 RDW 13.6 Plt Count 212 Neut % (Auto) 77.1 H Lymph % (Auto) 10.6 L [place] % (Auto) 9.2 Eos % (Auto) 2.6 Baso % (Auto) 0.5 Neut # (Auto) 6400 Lymph # (Auto) 900 L [place] # (Auto) 800 Eos # (Auto) 200 Baso # (Auto) 0 Sodium 134 L Potassium 3.2 L Chloride 103 Carbon Dioxide 28 BUN 48 H Creatinine 1.42 H Estimated GFR 36.1 L BUN/Creatinine Ratio 33.8 H Glucose 76 L Calcium 8.6 SARS-CoV-2 (PCR) 08/06/21 05:55 WBC RBC Hgb Hct MCV MCH MCHC RDW Plt Count Neut % (Auto) Lymph % (Auto) [place] % (Auto) Eos % (Auto) Baso % (Auto) Neut # (Auto) Lymph # (Auto) [place] # (Auto) Eos # (Auto) Baso # (Auto) Sodium Potassium Chloride Carbon Dioxide BUN Creatinine Estimated GFR BUN/Creatinine Ratio Glucose Calcium SARS-CoV-2 (PCR) Negative [facility] Medical History Acute upper GI bleed Anxiety Breast cancer (1992) Breast cancer, left breast (2016) Cataract (2010) Chicken pox Diabetes mellitus (~1987) Fractures GERD (gastroesophageal reflux disease) Hayfever (~1959) History of recurrent ear infection Hyperlipidemia (~1997) Hyperparathyroidism (2013) Hypertension (~1997) Impingement syndrome of right shoulder Left knee DJD Lumbar spine pain Measles Obesity (BMI 30-39.9) ROSCOE (obstructive sleep apnea) Osteopenia Osteoporosis Pneumonia Ribs, multiple fractures Shoulder pain (2014) Sternal fracture (2014) Unilateral primary osteoarthritis, left knee Urinary incontinence (2012) Vertigo (2011) Surgical History (Updated 07/26/21 @ 13:27 by Marian Avila RN) Anesthesia complication H/O lumpectomy H/O mastectomy History of fusion of cervical spine (2011) History of knee replacement (2006) History of lumbar spinal fusion (2009) History of lumbar spinal fusion Hx of bilateral cataract extraction Family History Father Hypertension High cholesterol Pneumonia Mother Hypertension Mental health problem Stroke History of hip surgery Grandfather Heart disease Hypertension High cholesterol Grandmother Hypertension High cholesterol Social History marital status: household members: spouse occupational status: other Tobacco & Substance Use Smoking Status: Never smoker alcohol intake: current substance use type: does not use Assessment & Plan Assessment and plan (1) Anemia: Qualifiers: Anemia type: unspecified type Qualified Code(s): D64.9 - Anemia, unspecified Status: Acute Plan Suspected GI bleed. Hold aspirin, ibuprofen, Lovenox and any blood thinners. Recommend NPO after midnight. If her hemoglobin continues to decline we can perform an EGD tomorrow. If it rebounds is most likely caused by gastritis wh ich was irritated following her recent surgery and NSAIDs use Time Spent With Patient Critical Care time: I spent a total of [] minutes of critical care time on this patient's care today; this time is exclusive of procedural time.
--- NOTE | 2021-08-06 10:36 | PT.IPTN ---
Current Diagnoses Anemia, unspecified (08/04/21) Physical Therapy Treatment Note M2 PT-IP Current Condition Start: 08/05/21 13:24 Freq: NEEDED Status: Active Protocol: Document 08/05/21 12:00 AB (Rec: 08/05/21 13:37 AB [email or web address]) Physical Therapy Current Condition Current Condition Evaluation Date 08/05/21 Treatment Diagnosis r/o TIA; s/p L TKA; difficulty in walking Onset Date 08/04/21 M3 PT-IP Subjective Start: 08/05/21 13:24 Freq: NEEDED Status: Active Protocol: Document 08/06/21 10:36 AW (Rec: 08/06/21 10:51 AW [id number]) Subjective Physical Therapy Visit Type Type Treatment Note Visit Start Time 09:53 Visit Stop Time 10:21 Total Visit Minutes 28 Notes H&H trending down: 8.8/25.7 today. General surgeon in to discuss possible EGD tomorrow. NPO status lifted until midnight. Number of LINE COOK Visits 0 Physical Therapy Visit Comments Patient Comments Pt oriented to self, date, place, and situation. Agreeable to participate with PT. Therapy Pain Assessment Pain When Pain Assessed During Mobility Pain Present Pain Present Pain Reported Location Left knee Scale Used Numeric (0 - 10) Pain Management Techniques Distraction,Elevation, Modification of Treatment,Re- positioning M4 PT-IP Mobility and Gait Start: 08/05/21 13:24 Freq: NEEDED Status: Active Protocol: Document 08/06/21 10:36 AW (Rec: 08/06/21 10:51 AW [id number]) PT-Bed Mobility Assessment Supine to Sit Supine to Sit Standby Assistance,Bedrails Scooting Scooting to Edge of Bed Standby Assistance PT-Transfer Assessment Sit to and From Stand Sit to and from Stand Standby Assistance,Use of Upper Extremities Equipment Transfer Assistive Device Gait Belt,Front Wheeled Walker Orthotic/Prosthetic Devices or Brace: No Transfers Transfer Destination Chair,Toilet Transfer Technique Pt ambulated w/ FWW Transfer Ability Level of Assist Standby Assistance,Contact Guard Assistance,Use of Upper Extremities Comments Mobility Comments Pt was sleeping as PT arrived but was easily roused and agreeable to do PT. She completed supine to sit and sat EOB SBA. PT set up FWW and pt stood from the bed in lowest position SBA. She ambulated with FWW to the toilet, needing cues to use the grab bar as she sat. On the toilet, PT provided change of briefs and pt needed min assist to don. She stood using grab bar and PT assisted with gown change. Pt used FWW to walk to the sink SBA where she needed cues to keep FWW squared up to the sink. She stood several minutes brushing teeth and brushing hair with good balance, even while reaching outside [place]NA[place]. She then walked in the halls 80 feet with FWW SBA. On return to the room, she intermittently used FWW for support as she hung items of clothing on the bathroom door hooks. She sat on the chair with poor control . PT educated pt on technique and pt stood, sat again with greatly improved control and decreased pain. Pt was left with call light and tray table in reach. Chair alarmed was armed for safety. Gait Assessment Gait Gait Assistance Required: Standby Assistance,Contact Guard Assist,1 Person Assist Distance (Feet) 80 Able to Maintain Weight Bearing Status Yes During Gait Assistive Devices Assistive Device Gait Belt,Front Wheeled Walker Orthotic/Prosthetic Devices or Brace: No Gait Deviations General Gait Pattern Decreased Stride Length, Decreased Feet Clearance,Step- to Gait,Wide Based Gait Factors Limiting Gait Function Factors Limiting Gait Function Decreased Activity Tolerance, Decreased Strength,Difficulty Following Directions,Limited Range of Motion,Pain,Poor Balance,Poor Safety Awareness Comments Gait Comments Pt ambulated 80 feet with FWW SBA>CGA with increased distance. Stair Climbing Assessment Comments Stair Climbing Comments No stairs in home environment. PT-Balance Assessment Sitting Balance and Reactions Static Sitting Balance Ability Good Dynamic Sitting Balance Ability Good Standing Balance and Reactions Static Standing Balance Ability Good Dynamic Standing Balance Ability Fair Device Used FWW M5 PT-IP Objective Assessments Start: 08/05/21 13:24 Freq: NEEDED Status: Active Protocol: Document 08/05/21 12:00 AB (Rec: 08/05/21 13:37 AB [email or web address]) Orientation Orientation/Cognition Orientation Name,Place,Situation Language Function Ability No Deficits Noted Safety Awareness Decreased Safety Awareness Memory Description Short Term Impaired Gross Range of Motion Lower Extremity ROM Assessment Within Functional Limits Strength Lower Extremity Strength Assessment Left Impaired Hip 3/5 Knee 3+/5 Sensation Assessment Sensation Gross Sensation WNL Muscle Tone Muscle Tone WNL Yes M6 PT-IP Treatment Start: 08/05/21 13:24 Freq: NEEDED Status: Active Protocol: Document 08/06/21 10:36 AW (Rec: 08/06/21 10:51 AW [id number]) Physical Therapy Treatment Exercises Exercises Ankle Pumps,Quad Sets,Seated Knee Flexion/Extension Education Education Provided Weight Bearing Status,Safety M7 PT-IP Assessment and Plan Start: 08/05/21 13:24 Freq: NEEDED Status: Active Protocol: Document 08/06/21 10:36 AW (Rec: 08/06/21 10:51 AW [id number]) PT Summary Assessment and Plan Potential Rehabilitation Potential Good Status of Condition at Evaluation Evolving Summary Impairments Pain,ROM,Strength,Balance, Coordination,Sensation,Tone, Cognition,Bed Mobility, Transfers,Gait,Activity Tolerance Progress Towards Goals Progressing Toward Goals,Slow Progress due to Medical Issues Assessment Summary Pt improved all mobility to SBA/CGA today with FWW. She states her son, Brandon, will be able to stay with her a few extra days. She comments that she now remembers some of her falls and that she could not control her forward momentum over the front of the walker. She was steady with FWW today. She was oriented x 4 and alert throughout treatment. If she continues to progress, she will likely be safe to discharge home with assist although she does express concern about her 's ability to assist once her son leaves. Will continue to assess for safe discharge plan . Goals Bed Mobility Goal Standby Assistance Transfer Goal Standby Assistance,Front Wheeled Walker Gait Goal Standby Assistance,Front Wheel Walker Gait Distance 200 Days to Meet Goals 5 Frequency of Treatment Frequency Of Treatment Twice a Day Treatment Plan Physical Therapy Treatment Plan Bed Mobility Training,Transfer Training,Gait Training, Therapeutic Exercise,Balance Retraining,Post Op Education, Discharge Planning,Hot or Cold Pack,Neuromuscular Re-ed, Coordination Retraining,Manual Therapy Precautions Other Precautions falls Recommendations To Nursing Amount of Assist Needed Standby Assistance,1 Person Assist Discharge Recommendations PT Discharge Recommendations Home with 24/12 Assist Available,Home Health,SNF Rehab,Home vs SNF Transportation Needs at Discharge Private Vehicle,Wheelchair/ Cabulance
--- NOTE | 2021-08-06 11:24 | PM.PN.1 ---
Subjective Subjective Date Patient Seen: 08/06/21 Interval history: 75-year-old female with a history of IDDM, CKD, HTN, HL, depression, insomnia, and obesity presented to the ED for recurrent falls within the last 24 hours. Patient has also been slurring words and confused.? She had a left total knee replacement 08/02/[address] Rodriguez. Patient's mental status is much better with stopping oxycodone. However, she had a episodes of melena early last night with drop in hemoglobin. No vomiting. Patient was admitted about a year ago in June 2020 for GI bleed and noted to have gastritis on EGD thought secondary to aspirin and diclofenac. Unfortunately she eventually resumed her daily aspirin which was increased to b.i.d. dosing after her knee replacement in addition to taking ibuprofen. Exam Vital Signs (past 8 hours): - 08/06/21 05:00 08/06/21 07:45 08/06/21 10:50 Temperature 97.9 F Pulse Rate 66 Respiratory Rate 17 Blood Pressure 162/72 H Pulse Oximetry 96 96 94 Oxygen Delivery Method Room Air Oxygen Flow Rate 0 Narrative Exam Narrative: General: Alert, NAD Lungs: Clear Heart: Regular Abdomen: Soft Extremities: No edema Neurological: Appears fully oriented, speech normal, affect normal Objective Labs Result Diagrams: 08/06/21 05:20 08/06/21 05:20 Labs: Laboratory Results - last 24 hr 08/05/21 08/06/21 08/06/21 21:02 05:20 05:20 WBC 8.3 RBC 3.02 L Hgb 9.4 L 8.8 L Hct 27.3 L 25.7 L MCV 85.0 MCH 28.9 MCHC 34.1 RDW 13.6 Plt Count 212 Neut % (Auto) 77.1 H Lymph % (Auto) 10.6 L [place] % (Auto) 9.2 Eos % (Auto) 2.6 Baso % (Auto) 0.5 Neut # (Auto) 6400 Lymph # (Auto) 900 L [place] # (Auto) 800 Eos # (Auto) 200 Baso # (Auto) 0 Sodium 134 L Potassium 3.2 L Chloride 103 Carbon Dioxide 28 BUN 48 H Creatinine 1.42 H Estimated GFR 36.1 L BUN/Creatinine Ratio 33.8 H Glucose 76 L Calcium 8.6 SARS-CoV-2 (PCR) 08/06/21 05:55 WBC RBC Hgb Hct MCV MCH MCHC RDW Plt Count Neut % (Auto) Lymph % (Auto) [place] % (Auto) Eos % (Auto) Baso % (Auto) Neut # (Auto) Lymph # (Auto) [place] # (Auto) Eos # (Auto) Baso # (Auto) Sodium Potassium Chloride Carbon Dioxide BUN Creatinine Estimated GFR BUN/Creatinine Ratio Glucose Calcium SARS-CoV-2 (PCR) Negative PFSH Medical History Acute upper GI bleed Anxiety Breast cancer (1992) Breast cancer, left breast (2016) Cataract (2010) Chicken pox Diabetes mellitus (~1987) Fractures GERD (gastroesophageal reflux disease) Hayfever (~1959) History of recurrent ear infection Hyperlipidemia (~1997) Hyperparathyroidism (2013) Hypertension (~1997) Impingement syndrome of right shoulder Left knee DJD Lumbar spine pain Measles Obesity (BMI 30-39.9) ROSCOE (obstructive sleep apnea) Osteopenia Osteoporosis Pneumonia Ribs, multiple fractures Shoulder pain (2014) Sternal fracture (2014) Unilateral primary osteoarthritis, left knee Urinary incontinence (2012) Vertigo (2011) Surgical History (Updated 07/26/21 @ 13:27 by Marian Avila RN) Anesthesia complication H/O lumpectomy H/O mastectomy History of fusion of cervical spine (2011) History of knee replacement (2006) History of lumbar spinal fusion (2009) History of lumbar spinal fusion Hx of bilateral cataract extraction Family History Father Hypertension High cholesterol Pneumonia Mother Hypertension Mental health problem Stroke History of hip surgery Grandfather Heart disease Hypertension High cholesterol Grandmother Hypertension High cholesterol Social History marital status: household members: spouse occupational status: other Smoking Status: Never smoker alcohol intake: current substance use type: does not use Assessment & Plan Assessment & Plan narrative: 75-year-old female with a history of IDDM, CKD, HTN, HL, depression, insomnia, and obesity presented to the ED for recurrent falls, slurred speech, confusion within the last 24 hours. Patient had a left total knee replacement 08/02/[address] Rodriguez. 1. 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 Acute GI bleed with blood loss anemia -developed melena p.m. of August 05 -this is likely secondary to aspirin and ibuprofen -history of gastritis on EGD in June 2020 -at this time transfusion not indicated, drop in hemoglobin this a.m. partly dilutional from IV fluids -appreciate surgical consult -resume diet, NPO after midnight in case she may need EGD on 08/07 -Protonix 40 mg IV b.i.d. -stop ASA, ibuprofen, enoxaparin -patient does not have strong indication for taking daily low-dose aspirin for cardiac prevention 2. Insulin-dependent type 2 diabetes with hypoglycemia -low blood sugars in 60s at home probably because not eating -on Basaglar 14 units q.p.m. and NovoLog 5-6 units with meals at home, also on glimepiride, Januvia and metformin -held oral medications, Lantus 10 units HS and NovoLog low-dose sliding scale ordered for here 3. Acute kidney injury, prerenal, improving -sodium 131, and mild ROGER BUN 53, creatinine 1.86, GFR 26.4.? 07/07/2021 BUN 36 creatinine 1.35, GFR 38.2. -received IV hydration, encourage p.o. fluid intake -hold losartan and chlorthalidone until renal function recovers, also hold amlodipine -continue carvedilol, continue atorvastatin -stop ibuprofen, avoid NSAIDs -IV hydration 4. Depression, with insomnia, chronic, present on admission -continue Lexapro 5. Status post left total knee -PT consult for recurrent falls -Tylenol scheduled, ice packs as needed left knee 6.?Hypokalemia -received potassium replacement -recheck in a.m. DVT prophylaxis: SCDs due to active bleed Patient possibly can be discharge home tomorrow Saturday if does not have recurrent bleed. Time Spent With Patient Critical Care time: I spent a total of [] minutes of critical care time on this patient's care today; this time is exclusive of procedural time. Quality VTE Deep Vein Thrombosis/Pulmonary Embolism Present on Admission: No
--- NOTE | 2021-08-06 11:38 | CM.IDA ---
Initial DCP Assessment Note Pt is a 75 yo female, resident of [place], arrives w/ Acute metabolic encephalopathy; patient has left TKA by Dr Rodriguez 3.2. and left the same day. Patient discussed in multidisciplinary rounds this morning- According to Dr Burgess; patient may be stable for return home Saturday, did have a bit of GI bleed last night. Dr Atkinson/surgery consulted and states: Suspected GI bleed. Hold aspirin, ibuprofen, Lovenox and any blood thinners. Recommend NPO after midnight. If her hemoglobin continues to decline we can perform an EGD tomorrow. If it rebounds is most likely caused by gastritis which was irritated following her recent surgery and NSAIDs use PCP: Sylvie Roy Payer: LOGAN/Celia Patient is prepared for return home w/son and spouse to assist. Therapy team likely will clear patient for return home w/this plan depending on progress over next 24 hrs. 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 Yes Advance Directives on File No History Provided By Patient,Significant Other, Medical Record Has Patient been admitted in last 30 Yes days? Comment Recent Left TKA w/ Dr Rodriguez Prior Living Arrangements House Household Members spouse Type of transporation used prior to Drives own vehicle admit Independent with ADL's Yes Is patient alert and oriented? Yes Barriers to Discharge No Comment PT:SBA/CGA today with FWW PT recommending home w/ / assist vs SNF depending on patient's progress. patient plans to DC home w/assist from son and spouse Discharge Plan Home Transportation Arrangement Spouse to provide transport. Referrals Initiated None needed Additional Comment r/o need for HH upon DC
[2021-08-06 16:02] LABS: Hematocrit 26.5 % (36-46); Hemoglobin 8.8 g/dL (12.0-16.0)
--- NOTE | 2021-08-06 16:45 | PT.IPTN ---
Current Diagnoses Cerebral infarction, unspecified (08/06/21) Physical Therapy Treatment Note M2 PT-IP Current Condition Start: 08/05/21 13:24 Freq: NEEDED Status: Active Protocol: Document 08/05/21 12:00 AB (Rec: 08/05/21 13:37 AB [id number]) Physical Therapy Current Condition Current Condition Evaluation Date 08/05/21 Treatment Diagnosis r/o TIA; s/p L TKA; difficulty in walking Onset Date 08/04/21 M3 PT-IP Subjective Start: 08/05/21 13:24 Freq: NEEDED Status: Active Protocol: Document 08/06/21 15:47 AW (Rec: 08/06/21 16:45 AW [id number]) Subjective Physical Therapy Visit Type Type Treatment Note Visit Start Time 15:33 Visit Stop Time 15:47 Total Visit Minutes 14 Notes No lab draws since AM. 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 Physical Therapy Visit Comments Patient Comments Pt is willing to participate with PT Therapy Pain Assessment Pain When Pain Assessed During Mobility Pain Present Pain Present Pain Reported Location Left knee Scale Used not quantified Pain Management Techniques Distraction,Re-positioning M4 PT-IP Mobility and Gait Start: 08/05/21 13:24 Freq: NEEDED Status: Active Protocol: Document 08/06/21 15:47 AW (Rec: 08/06/21 16:45 AW [id number]) PT-Bed Mobility Assessment Supine to Sit Supine to Sit Standby Assistance,Bedrails Sit to Supine Sit to Supine Minimal Assistance,1 Person Assistance,Bedrails Scooting Scooting to Edge of Bed Standby Assistance PT-Transfer Assessment Sit to and From Stand Sit to and from Stand Standby Assistance,Use of Upper Extremities Equipment Transfer Assistive Device Gait Belt,Front Wheeled Walker Orthotic/Prosthetic Devices or Brace: No Transfers Transfer Destination Bed Transfer Technique Pt ambulated w/ FWW Transfer Ability Level of Assist Standby Assistance,Use of Upper Extremities Comments Mobility Comments Pt was lyingin bed as PT arrived. With HOB flat, pt completed supine to sit SBA and sat EOB without UE support . She stood with cues to push off from the bed SBA and used FWW to ambulate in the halls SBA. On return to the room, pt sat EOB with poorly controlled descent. PT demonstrated and educated on proper technique and pt was able to complete sit <> stand x 3 with good form, improved control. Min A for LE elevation to the bed as pt returned to supine. Left pt with call light, tray table in reach. Bed alarm was armed for safety. Gait Assessment Gait Gait Assistance Required: Standby Assistance,Contact Guard Assist,1 Person Assist Distance (Feet) 75 Able to Maintain Weight Bearing Status Yes During Gait Assistive Devices Assistive Device Gait Belt,Front Wheeled Walker Orthotic/Prosthetic Devices or Brace: No Gait Deviations General Gait Pattern Decreased Stride Length, Decreased Feet Clearance,Step- to Gait,Wide Based Gait Factors Limiting Gait Function Factors Limiting Gait Function Decreased Activity Tolerance, Decreased Strength,Difficulty Following Directions,Limited Range of Motion,Pain,Poor Balance,Poor Safety Awareness Comments Gait Comments SBA>CGA with no LOB, no signs of knee buckling. Pt responded well to cues to keep shoulders in line with hands for alignment and best support with FWW. Stair Climbing Assessment Comments Stair Climbing Comments No stairs in home environment. PT-Balance Assessment Sitting Balance and Reactions Static Sitting Balance Ability Good Dynamic Sitting Balance Ability Good Standing Balance and Reactions Static Standing Balance Ability Good Dynamic Standing Balance Ability Fair Device Used FWW M5 PT-IP Objective Assessments Start: 08/05/21 13:24 Freq: NEEDED Status: Active Protocol: Document 08/05/21 12:00 AB (Rec: 08/05/21 13:37 AB [id number]) Orientation Orientation/Cognition Orientation Name,Place,Situation Language Function Ability No Deficits Noted Safety Awareness Decreased Safety Awareness Memory Description Short Term Impaired Gross Range of Motion Lower Extremity ROM Assessment Within Functional Limits Strength Lower Extremity Strength Assessment Left Impaired Hip 3/5 Knee 3+/5 Sensation Assessment Sensation Gross Sensation WNL Muscle Tone Muscle Tone WNL Yes M6 PT-IP Treatment Start: 08/05/21 13:24 Freq: NEEDED Status: Active Protocol: Document 08/06/21 15:47 AW (Rec: 08/06/21 16:45 AW [id number]) Physical Therapy Treatment Education Education Provided Weight Bearing Status,Safety M7 PT-IP Assessment and Plan Start: 08/05/21 13:24 Freq: NEEDED Status: Active Protocol: Document 08/06/21 15:47 AW (Rec: 08/06/21 16:45 AW [id number]) PT Summary Assessment and Plan Potential Rehabilitation Potential Good Status of Condition at Evaluation Evolving Summary Impairments Pain,ROM,Strength,Balance, Coordination,Sensation,Tone, Cognition,Bed Mobility, Transfers,Gait,Activity Tolerance Progress Towards Goals Progressing Toward Goals,Slow Progress due to Medical Issues Assessment Summary Pt continues to require SBA/ CGA for all mobility with FWW. No LOB, no signs of knee buckling today. Mentation appears improved. She remarks her son is planning to extend his stay to help her at home. She will be safe to discharge home with assist (up to 24/12) and vs outpatient PT once medically stable. Goals Bed Mobility Goal Standby Assistance Transfer Goal Standby Assistance,Front Wheeled Walker Gait Goal Standby Assistance,Front Wheel Walker Gait Distance 200 Days to Meet Goals 5 Frequency of Treatment Frequency Of Treatment Twice a Day Treatment Plan Physical Therapy Treatment Plan Bed Mobility Training,Transfer Training,Gait Training, Therapeutic Exercise,Balance Retraining,Post Op Education, Discharge Planning,Hot or Cold Pack,Neuromuscular Re-ed, Coordination Retraining,Manual Therapy Precautions Other Precautions falls Recommendations To Nursing Amount of Assist Needed Standby Assistance,1 Person Assist Discharge Recommendations PT Discharge Recommendations Home with Assistance,Home with 24/12 Assist Available,Home Health,Outpatient PT Transportation Needs at Discharge Private Vehicle
[2021-08-06] MEDS: INSULIN LISPRO 100 UNIT/ML 3ML VIAL SUBCUT (17:37)
[2021-08-06] MEDS: ATORVASTATIN 20 MG TABLET 10 MG PO (21:35)
[2021-08-06] MEDS: GABAPENTIN 300 MG CAPSULE 900 MG PO (21:36)
[2021-08-06] MEDS: LOSARTAN 50 MG TABLET 100 MG PO (21:37)
[2021-08-06] MEDS: INSULIN GLARGINE 100 UNIT/ML 3ML PEN 10 UNIT SUBCUT (21:38)
[2021-08-07] VITALS (22 sets, daily range): BP systolic 117–169; BP diastolic 46–76; PULSE 64–84; RESP 13–23; TEMP 36.1–36.9; O2SAT 94–100; BMI 33.5
--- NOTE | 2021-08-07 | PATH_ITS ---
[facility] Accession Number: [id number] No. of containers..02 Tissue . 01 Material submitted: . PART A: duodenum - DUODENUM BIOPSY PART B: stomach - ANTRUM BIOPSY . 02 Diagnosis: A. Duodenum, Biopsy: Duodenal mucosa with focal reactive and stromal changes suggestive of healed/healing erosion. Negative for active inflammation, features of sprue, dysplasia and malignancy. . B. Stomach, Antrum, Biopsy: Antral mucosa with mild chronic gastritis. Negative for Helicobacter organisms by immunohistochemistry. Negative for intestinal metaplasia. Negative for dysplasia and malignancy. [facility] 08/10/2021 1517 Local . 02 Electronically signed: . Michelle Jones MD, Pathologist NPI- [id number] . 01 Gross description: . Part A: DUODENUM BIOPSY: Received in formalin is 1 fragment(s) of bynum, soft tissue measuring 0.3 x 0.2 x 0.1 cm submitted entirely in 1 cassette(s) Part B: ANTRUM BIOPSY: Received in formalin are 4 fragment(s) of bynum, soft tissue measuring 0.3 x 0.3 x 0.1 cm to 0.2 x 0.1 x 0.1 cm submitted entirely in 1 cassette(s) /[facility] 08/08/2021 1920 Local . 02 Microscopic: . B. An immunohistochemical stain is performed to evaluate for Helicobacter organisms and is negative. The control stain showed appropriate reactivity. . . * This test was developed and its performance characteristics determined by [employer]. It has not been cleared or approved by the U.S. Food and Drug Administration. The FDA has determined that such clearance or approval is not necessary. This test is used for clinical purposes. It should not be regarded as investigational or for research. . 02 Pathologist provided ICD-10: R10.9 . 02 CPT . 584815, 136561, R04232 Specimen Comment: A courtesy copy of this report has been sent to [phone] Performed at: 01 [facility] [address] [id number] MD Magan Alicea MD Phone: [phone] Performed at: 02 [facility] [id number] [place], [place] [id number] MD Michelle Jones MD Phone: [phone]
[2021-08-07] MEDS: ACETAMINOPHEN 325 MG TABLET 975 MG PO (04:40)
[2021-08-07 05:58] LABS: Add Manual Diff / Slide Review NO; Basophils Absolute Auto 0 /uL (0-100); Basophils Percent Auto 0.4 % (0-2); Eosinophils Absolute Auto 200 /uL (0-450); Eosinophils Percent Auto 2.4 % (2-4); Hematocrit 24.9 % (36-46); Hemoglobin 8.4 g/dL (12.0-16.0); Lymphocytes Absolute Auto 900 /uL (1100-4500); Lymphocytes Percent Auto 11.6 % (25-40); Mean Corpuscular HGB Conc 33.9 % (30-36); Mean Corpuscular Hemoglobin 29.1 PG (26-34); Mean Corpuscular Volume 85.8 fL (80-100); Monocytes Absolute Auto 700 /uL (0-900); Monocytes Percent Auto 8.6 % (3-14); Neutrophils Absolute Auto 6200 /uL (1500-7000); Platelet Count 234 X10^3/uL (150-400); Red Blood Cell Count 2.91 X10^6/uL (4.0-5.2); Red Cell Distribution Width 13.7 % (11.6-14.8)
[2021-08-07 06:02] LABS: BUN Creatinine Ratio 20.5 (6-22); Blood Urea Nitrogen 30 mg/dL (7-17); Calcium 8.4 mg/dL (8.4-10.2); Carbon Dioxide 28 mmol/L (22-32); Chloride 107 mmol/L (98-107); Estimated Glomerular Filt Rate 34.9 mL/min (>60); Glucose 130 mg/dL (80-110); HEMOLYSIS < 15 (0-50); Potassium 3.8 mmol/L (3.4-5.1); Sodium 138 mmol/L (137-145)
--- NOTE | 2021-08-07 07:49 | PM.PN.1 ---
Subjective Subjective Date Patient Seen: 08/07/21 Time Patient Seen: 07:49 Interval history: Had 1 formed black stool last night. Hemoglobin continued to drop slightly. Exam Vital Signs (past 8 hours): - 08/07/21 00:22 08/07/21 01:00 08/07/21 02:58 Temperature Pulse Rate Pulse Rate [Orthostatic Lying] 82 Pulse Rate [Orthostatic Sitting] 80 Pulse Rate [Orthostatic Standing] 84 Respiratory Rate Blood Pressure Blood Pressure [Orthostatic Lying] 136/55 L Blood Pressure [Orthostatic Sitting] 150/59 H Blood Pressure [Orthostatic Standing] 133/53 L Pulse Oximetry 96 96 08/07/21 03:35 08/07/21 04:26 08/07/21 05:00 Temperature 97.9 F Pulse Rate 80 Pulse Rate [Orthostatic Lying] Pulse Rate [Orthostatic Sitting] Pulse Rate [Orthostatic Standing] Respiratory Rate 17 Blood Pressure 150/59 H Blood Pressure [Orthostatic Lying] Blood Pressure [Orthostatic Sitting] Blood Pressure [Orthostatic Standing] Pulse Oximetry 98 98 98 Oxygen Delivery Method Room Air Oxygen Flow Rate 0 Narrative Exam Narrative: Sleeping, appears comfortable Abdomen soft Objective Labs Result Diagrams: 08/07/21 05:25 08/07/21 05:25 Labs: Laboratory Results - last 24 hr 08/06/21 08/07/21 08/07/21 15:57 05:25 05:25 WBC 8.0 RBC 2.91 L Hgb 8.8 L 8.4 L Hct 26.5 L 24.9 L MCV 85.8 MCH 29.1 MCHC 33.9 RDW 13.7 Plt Count 234 Neut % (Auto) 77.0 H Lymph % (Auto) 11.[address] [place] % (Auto) 8.6 Eos % (Auto) 2.4 Baso % (Auto) 0.4 Neut # (Auto) 6200 Lymph # (Auto) [address] [place] # (Auto) 700 Eos # (Auto) 200 Baso # (Auto) 0 Sodium 138 Potassium 3.8 Chloride 107 Carbon Dioxide 28 BUN 30 H Creatinine 1.46 H Estimated GFR 34.9 L BUN/Creatinine Ratio 20.5 Glucose 130 H Calcium 8.4 PFSH Medical History Acute upper GI bleed Anxiety Breast cancer (1992) Breast cancer, left breast (2016) Cataract (2010) Chicken pox Diabetes mellitus (~1987) Fractures GERD (gastroesophageal reflux disease) Hayfever (~1959) History of recurrent ear infection Hyperlipidemia (~1997) Hyperparathyroidism (2013) Hypertension (~1997) Impingement syndrome of right shoulder Left knee DJD Lumbar spine pain Measles Obesity (BMI 30-39.9) ROSCOE (obstructive sleep apnea) Osteopenia Osteoporosis Pneumonia Ribs, multiple fractures Shoulder pain (2014) Sternal fracture (2014) Unilateral primary osteoarthritis, left knee Urinary incontinence (2012) Vertigo (2011) Surgical History (Updated 07/26/21 @ 13:27 by Marian Avila RN) Anesthesia complication H/O lumpectomy H/O mastectomy History of fusion of cervical spine (2011) History of knee replacement (2006) History of lumbar spinal fusion (2009) History of lumbar spinal fusion Hx of bilateral cataract extraction Family History Father Hypertension High cholesterol Pneumonia Mother Hypertension Mental health problem Stroke History of hip surgery Grandfather Heart disease Hypertension High cholesterol Grandmother Hypertension High cholesterol Social History marital status: household members: spouse occupational status: other Smoking Status: Never smoker alcohol intake: current substance use type: does not use Assessment & Plan Assessment and plan (1) Anemia: Qualifiers: Anemia type: unspecified type Qualified Code(s): D64.9 - Anemia, unspecified Status: Acute Plan Will plan for EGD later today. Time Spent With Patient Critical Care time: I spent a total of [] minutes of critical care time on this patient's care today; this time is exclusive of procedural time. Quality VTE Deep Vein Thrombosis/Pulmonary Embolism Present on Admission: No
[2021-08-07] MEDS: carvediloL 12.5 MG TABLET 25 MG PO (10:01)
[2021-08-07] MEDS: PANTOPRAZOLE 40 MG VIAL IV (10:05)
--- NOTE | 2021-08-07 10:34 | SLP.IPNOTE ---
Discussion with MD. Pt does not need ST at this time. Cancel order
[2021-08-07] MEDS: LACTATED RINGERS 1,000 ML 42 ML IV (11:05)
--- NOTE | 2021-08-07 11:18 | PM.PREOP ---
Pre-operative Note COVID-19 COVID-19 status: Negative Result date/Date tested (Pos, Neg/Pending): 08/06/21 Criteria for continued procedure: Expected advancement of disease process and Possibility delay results in more complex future surgery or treatment Interval Note History & Physical reviewed/Exam performed by Physician: Yes Changes to H&P: No ASA Class (for procedural sedation): II
[2021-08-07] MEDS: SCOPOLAMINE 1 PATCH TOP (11:26)
--- NOTE | 2021-08-07 12:02 | PM.OP.EGD ---
Operative Date/Time/Diagnoses Date of procedure: 08/07/21 Time of procedure: 12:02 Pre-op diagnosis: Melena Post-op diagnosis: same Procedure & Clinicians Study performed: Esophagogastroduodenoscopy Same procedure as scheduled: Yes Surgeon: Saravanan Atkinson Procedure Notes SCOAP/Timeout: Yes Procedure in detail: A timeout was performed. A bite blocked was placed. The patient was positioned in the left lateral decubitus position. Monitored anesthesia was induced by Dr. Dobson. The endoscope was inserted through the bite block and passed through the esophagus and stomach and into the duodenum. The duodenal mucosa appeared normal. There was moderate duodenitis. Random biopsies were taken from the descending duodenum. The scope was withdrawn into the duodenal bulb and a large ulcer was noted with a fibrinous exudate. There is no active bleeding and no visible vessel. The scope was withdrawn into the stomach. There was a moderately-sized ulcer in the antrum with an exudative base with no active bleeding and no visible vessel. Random biopsies were taken from the antrum. There was a smaller healing ulcer in the distal 3rd of the stomach. The scope was retroflexed and no obvious hiatal hernia was noted. The GE junction was normal. The scope was withdrawn into the esophagus and no other abnormalities were noted. The remainder of the esophagus was normal. The scope was withdrawn. The patient was awakened and brought to recovery. Findings: duodenal ulcer and gastric ulcer Post-procedure Plan for aftercare: I recommend she avoid NSAIDs such as ibuprofen and she start taking the PPI. I should see her again in about 3 months for a repeat endoscopy. Disposition: PACU
--- NOTE | 2021-08-07 12:44 | PC.NURSE ---
Addendum entered by Francisco Chung R.N. 08/07/21 14:46: Upon patient's transfer routine medication orders were dc'd, correction needed, [place] in recovery notified, and Dr. Isbell in surgery at this time. Original Note: Patient received back to room 224 post procedure, awake and alert but states she feels sleepy. Stood and transferred to bed without difficulty. States she is hungry and asks about lunch, and hopes she can still go home later today. VSS, call light within reach. Continue to follow.
--- NOTE | 2021-08-07 15:06 | OT.IP.TRT ---
Current Diagnoses Anemia, unspecified (08/06/21) Cerebral infarction, unspecified (08/06/21) Surgery Performed Operation Date: 08/07/21 12:15 Actual Procedures p Esophagogastroduodenoscopy WITH BIOPSIES(Not Applicable) - Saravanan Atkinson MD Occupational Therapy Treatment Note M2 OT-IP Current Condition Start: 08/05/21 14:00 Freq: Status: Active Protocol: Document 08/05/21 13:22 [facility] (Rec: 08/05/21 14:13 [facility] [id number]) Occupational Therapy Current Condition Current Condition Evaluation Date 08/05/21 Treatment Diagnosis recent S/P L TKA 08/02/21, fall, UTI Diagnosis Onset Date 08/04/21 M3 OT- IP Subjective and Pain Start: 08/05/21 14:00 Freq: Status: Active Protocol: Document 08/07/21 15:10 [facility] (Rec: 08/07/21 15:15 [facility] [id number]) OT- Subjective Occupational Therapy Visit Type Type Progress Note Visit Start Time 14:32 Visit Stop Time 15:06 Total Visit Minutes 34 Notes Pt agreeable to shower but concerned that she will miss her blood draw. OT Pain Assessment Pain When Pain Assessed At Rest Pain Present Pain Present Denied Pain M4 OT- IP ADL's Start: 08/05/21 14:00 Freq: Status: Active Protocol: Document 08/07/21 15:10 [facility] (Rec: 08/07/21 15:15 [facility] [id number]) OT [id number] Comments OT Self-Feeding Comments Not meal time OT ADL-Grooming General Evaluation Grooming Ability Independent Areas Needing Assistance Combing/Brushing Hair Comments OT Grooming Comments seated in bed at end of shower OT ADL-Oral Care Comments Oral Care Comments not performed OT ADL-Dressing General Eval Upper Body Dressing Ability Independent Lower Body Dressing Ability Maximum Assistance Areas Needing Assistance Underpants/Brief,Socks Comments OT Dressing Comments Pt donned clean hospial gown without assist and then needed max a for socks and donning brief. OT ADL-Toileting Comments OT Toileting Comments not performed OT ADL-Bathing Bathing Type Bathing Type Shower General Evaluation Bathing Ability Standby Assistance Areas Needing Assistance Retrieving/Setting Up Items Comments OT Bathing Comments Pt able to shower with SBA M5 OT- IP IADL's Start: 08/05/21 14:00 Freq: Status: Active Protocol: Document 08/05/21 13:22 [facility] (Rec: 08/05/21 14:13 [facility] [id number]) OT-Instrumental Activities of Daily Living Home Safety Awareness Home Safety Comments Pt a little groggy and feels that she is not thinkging well at this time, in addition pt has UTI. At this time woudl be best for her to assist her with all her needs. M6 OT- IP Functional Cognition Start: 08/05/21 14:00 Freq: Status: Active Protocol: Document 08/05/21 13:22 [facility] (Rec: 08/05/21 14:13 [facility] [id number]) Cognitive Factors Limiting Selfcare Function Cognitive Ability Level of Alertness Drowsy Patient Orientation Name,Place,Situation Attention Span Ability Capable of Focused Attention, Unable to Sustain Attention Ability to Follow Commands Able to Follow One Step Commands with Increased Time, Able to Follow One Step Commands with Repetition Cognitive Comments Cognitive Assessment Comments Pt very sleepy and having difficulty to keep her eyes open. Pt scored 21/30 on the SLUMS earlier with [employer]. To continue to monitor cognitive needs as pt clears from UTI. OT- Vision and Hearing OT- Hearing Assessment OT- Hearing Assessment WFL OT- Vision Assessment Visual Acuity Glasses All The Time M7 OT- IP Mobility and Balance Start: 08/05/21 14:00 Freq: Status: Active Protocol: Document 08/07/21 15:10 [facility] (Rec: 08/07/21 15:15 [facility] [id number]) OT- Bed Mobility Assessment Supine to Sit Supine to Sit Assist Standby Assistance Sit to Supine Sit to Supine Assist Standby Assistance Scooting Scooting to Edge of Bed Standby Assistance OT-Transfer Assessment Sit to and From Stand Sit to and from Stand Standby Assistance Transfers Transfer Ability Standby Assistance Technique Transfer Destination Bed,Bedside Commode,Shower Stall Transfer Technique Stand Step Pivot Devices Transfer Assistive Devices Gait Belt,Front Wheeled Walker Comments Mobility Comments Mobility to and from the shower OT- Gait Assessment Gait Gait Assistance Required: Standby Assistance Assistive Devices Assistive Device Gait Belt,Front Wheeled Walker OT- Balance Assessment Sitting Balance and Reactions Static Sitting Balance Ability Normal Dynamic Sitting Balance Ability Good M8 OT- IP Objective Assessments Start: 08/05/21 14:00 Freq: Status: Active Protocol: Document 08/05/21 13:22 [facility] (Rec: 08/05/21 14:13 [facility] [id number]) OT Gross Range of Motion Upper Extremity Range of Motion Assessment Within Functional Limits OT Strength Comments Strength Comments BUE 4/5 OT- Coordination Assessment Upper Extremity Finger to Nose Test Within Functional Limits Comments Coordination Comments Pt able to do on second attempt for both fingers. OT-Muscle Tone Assessment Muscle Tone WNL Yes M9 OT- IP Assessment and Plan Start: 08/05/21 14:00 Freq: Status: Active Protocol: Document 08/07/21 15:10 [facility] (Rec: 08/07/21 15:15 [facility] [id number]) OT Summary Assessment and Plan Potential Rehabilitation Potential Good Analytic Complexity at Evaluation Moderate Summary OT Impairments Balance,Functional Cognition, Functional Mobility,Dressing, Toileting,Bathing,Toilet Transfers,Shower Transfers, Activity Tolerance Progress Towards Goals Slow Progress due to Medical Issues,Slow Progress due to Cognition Assessment Summary Pt underwent recent S/p LTKA on 08/02/21. Pt is performing below her baseline d/t recent TKA but appears to be safe with family support for d/c home. Goals Grooming Goal Independent Dressing Goal Standby Assistance Toileting Goal Independent Bathing Goal Standby Assistance Toilet Transfer Goal Independent Shower Transfer Goal Independent Days to Meet Goals 7 Frequency of Treatment Frequency Of Treatment Once a Day Treatment Plan OT Treatment Plan ADL Training,Functional Cognition Training,Functional Mobility,Patient/Family Education,Discharge Planning Other Treatment Recommendations and Next Shower Treatment Focus Discharge Recommendations OT Discharge Recommendations Home with / Assist Available Transportation Needs at Discharge Private Vehicle
--- NOTE | 2021-08-07 15:20 | PT-IP ANOTE ---
Attempted to see pt at 15:20, pt refused therapy due to fatigue and waiting to hopefully d/c. States she does not have concerns about getting into her home and states he can assist as needed.
--- NOTE | 2021-08-07 15:47 | SLP.IPNOTE ---
Pt does not needd ST per MD. will cancel order.
[2021-08-07 15:50] LABS: Hematocrit 25.5 % (36-46); Hemoglobin 8.6 g/dL (12.0-16.0)
--- NOTE | 2021-08-07 16:33 | PM.DS.1 ---
History of Present Illness History of Present Illness Date Patient Seen: 08/07/21 Time Patient Seen: 16:34 Chief complaint: LOC, Post Surgery Narrative: Per Trisha Watts, [facility]-: Lois Barakat is a?75-year-old female with a history of IDDM, CKD, HTN, HL, depression, insomnia, and obesity presented to the ED for recurrent falls within the last 24 hours. Patient had a left total knee replacement 08/02/[address] Rodriguez.? Was discharged home the same day.?Apparently since her discharge from the hospital the patient's verbalized in ED that he felt she has been slurring her words and having word-finding issues.? This has been going on for the past 24-36 hours.? He? believed it had improved on arrival to the ED.?He also reported multiple falls over the past 24 hours.? The patient reports that these were due to severe pain in her left knee, balance issues and not necessarily because of weakness or pain in the left knee.? Patient denies hitting her head or LOC.? Patient denies neck pain, joint pain except for the left knee, vision changes, headache, ringing in her ears, chest pain, shortness of breath, abdominal pain, or vomiting. Patient is not on anticoagulation. She does have a history of vertigo but she states this is not vertigo symptoms that is causing her to fall.? Upon admit patient continues to complain of left knee pain 5-8/10, and continued nausea. ? Patient's vitals upon admit temp 98.1?, BP 182/89, HR 59, R 20, O2 saturation 93% on room air.? Patient has no white count, neutrophils 8400, mono 1100, HGB 11.3 cobra 8 2 33.5, mild hyponatremia sodium 131, and mild ROGER BUN 53, creatinine 1.86, GFR 26.4.? 07/07/2021 BUN 36 creatinine 1.35, GFR 38.2.? Patient's head CT was negative for any acute intracranial processes, chest x-ray with negative, patient's EKG demonstrated sinus Jonatan with a rate of [address] or T-wave changes.? Patient's last echo 10/25/2020 Dr. Wright EF 65-70%, no significant vascular disease.? Patient admitted for CVA rule out, secondary to multiple falls, mild ROGER and mild hyponatremia s/p total left knee.? Patient's head CT was negative for any acute intracranial processes, chest x-ray with negative, patient's EKG demonstrated sinus Jonatan with a rate of [address] or T-wave changes.? Patient's last echo 10/25/2020 Dr. Wright EF 65-70%, no significant vascular disease.? Patient admitted for CVA rule out, secondary to multiple falls, mild ROGER and mild hyponatremia s/p total left knee. Discharge Providers Provider Date of admission: 08/06/21 14:02 Discharge Date: 08/07/21 Primary care physician: Sylvie Roy DO Consults: 08/04/21 20:20 Consult to Discharge Planning Routine Comment: Consult to Occupational Therapy Evaluate & Treat Comment: Multiple falls Physician Instructions: Evaluate and treat Consult to Physical Therapy Evaluate & Treat Comment: Multiple Fall Physician Instructions: Evaluate and Treat Consult to Speech Therapy Evaluate & Treat Comment: Slurred speach Physician Instructions: Evaluate and treat 08/05/21 19:44 Consult After Hours PICC Line RN NOW Comment: 08/06/21 05:50 Consult to General Surgery Routine Comment: Consulting Provider: Saravanan Atkinson Reason for consultation: Upper GI Bleed-stool x2, Hgb 11.3-8.8 Has provider been notified: Yes Discharge provider: Saúl Wilkes DO Summary Hospital Course Discharge Diagnosis: 1. Acute metabolic encephalopathy, resolved 2. Acute GI bleed with blood loss anemia secondary to gastric and duodenal ulcers. 2. Insulin-dependent type 2 diabetes with hypoglycemia 3. Acute kidney injury, prerenal, improving 4. Depression, with insomnia, chronic, present on admission 5. Status post left total knee 6.?Hypokalemia 7. Acute cystitis, resolved. Hospital Course: 75-year-old female with a history of IDDM, CKD, HTN, HL, depression, insomnia, and obesity presented to the ED for recurrent falls, slurred speech, confusion within the last 24 hours. Patient had a left total knee replacement 08/02/[address] Rodriguez. This was likely due to a metabolic encephalopathy which was multifactorial. She Underwent an MRI which did not show evidence of an acute stroke. Her encephalopathy is likely secondary to an acute blood loss anemia and possible acute cystitis. Urinalysis showed possible acute cystitis and cultures did grow to sensitive organisms. She was treated with 3 days of Bactrim here in the hospital which should be sufficient for treatment and she is asymptomatic at the time of discharge. She further developed melena and had a continued decline in her hemoglobin and hematocrit after admission She underwent endoscopy on 08/07 with General surgery which showed duodenal and gastric ulcers. She was prescribed a PPI at the time of discharge is recommended for repeat endoscopy in 3 months. During her stay she was treated with IV Protonix twice daily. These ulcers are likely in the setting aspirin use and possibly ibuprofen for her recent knee surgery. No changes to her usual diabetes or blood pressure medications are recommended at time of discharge. Time Spent with Patient Time spent: Greater than 30 minutes Exam Vital Signs (past 8 hours): - 08/07/21 10:01 08/07/21 10:58 08/07/21 11:52 Temperature 98.1 F 97 F L Pulse Rate 73 71 65 Respiratory Rate 20 13 Blood Pressure 148/62 H 166/61 H 117/76 Pulse Oximetry 97 100 08/07/21 11:57 08/07/21 12:01 08/07/21 12:12 Temperature Pulse Rate 65 66 64 Respiratory Rate 13 13 13 Blood Pressure 153/54 H 156/60 H 154/66 H Pulse Oximetry 100 98 96 08/07/21 12:17 08/07/21 12:30 08/07/21 12:58 Temperature 97.9 F 97.6 F Pulse Rate 66 65 67 Respiratory Rate 15 21 17 Blood Pressure 169/58 H 145/52 H 144/54 H Pulse Oximetry 98 97 96 08/07/21 13:06 08/07/21 13:25 08/07/21 13:30 Temperature 97.7 F Pulse Rate 74 Respiratory Rate 21 Blood Pressure 155/63 H Pulse Oximetry 94 94 97 08/07/21 14:30 08/07/21 15:30 Temperature 97.9 F 98.5 F Pulse Rate 76 77 Respiratory Rate 23 20 Blood Pressure 144/56 H 136/46 L Pulse Oximetry 97 98 Oxygen Delivery Method Room Air Oxygen Flow Rate 0 Narrative Exam Narrative: General:? Patient is well developed and well nourished, in no distress at this time. HEENT:? Normocephalic, atraumatic, extraocular muscles intact, oral pharynx is clear and mucous membranes are moist. Neck: supple and symmetric, trachea is midline, no cervical adenopathy. Negative for JVD Chest:? Normal AP diameter and contour without kyphoscoliosis, no tachypnea, equal chest rise bilaterally. Lungs:? CTA b/l no wheezing rhonchi or rales. Cardio:?RRR no m/r/g. Abdomen: S NT ND. No CVA tenderness. Musculoskeletal:? Muscle strength and tone are equal within normal limits, no deformity. Extremities: No edema or joint effusions. No cyanosis or clubbing. Skin:? Pale,? Warm to touch,dry and intact without rashes, ulcerations or petechiae.? Neuro:? Alert and orientated x3,? sensation to touch intact in all extremities, no gross deficits noted of cranial nerves. Psych:? Patient has a well-kept appearance, appropriate affect, mental status attitude thought context and judgment are appropriate for age. Objective Labs Result Diagrams: 08/07/21 15:38 08/07/21 05:25 Labs: Laboratory Results - last 24 hr 08/07/21 08/07/21 08/07/21 05:25 05:25 15:38 WBC 8.0 RBC 2.91 L Hgb 8.4 L 8.6 L Hct 24.9 L 25.5 L MCV 85.8 MCH 29.1 MCHC 33.9 RDW 13.7 Plt Count 234 Neut % (Auto) 77.0 H Lymph % (Auto) 11.6 L [place] % (Auto) 8.6 Eos % (Auto) 2.4 Baso % (Auto) 0.4 Neut # (Auto) 6200 Lymph # (Auto) 900 L [place] # (Auto) 700 Eos # (Auto) 200 Baso # (Auto) 0 Sodium 138 Potassium 3.8 Chloride 107 Carbon Dioxide 28 BUN 30 H Creatinine 1.46 H Estimated GFR 34.9 L BUN/Creatinine Ratio 20.5 Glucose 130 H Calcium 8.4 PFSH Medical History Acute upper GI bleed Anxiety Breast cancer (1992) Breast cancer, left breast (2016) Cataract (2010) Chicken pox Diabetes mellitus (~1987) Fractures GERD (gastroesophageal reflux disease) Hayfever (~1959) History of recurrent ear infection Hyperlipidemia (~1997) Hyperparathyroidism (2013) Hypertension (~1997) Impingement syndrome of right shoulder Left knee DJD Lumbar spine pain Measles Obesity (BMI 30-39.9) ROSCOE (obstructive sleep apnea) Osteopenia Osteoporosis Pneumonia Ribs, multiple fractures Shoulder pain (2014) Sternal fracture (2014) Unilateral primary osteoarthritis, left knee Urinary incontinence (2012) Vertigo (2011) Surgical History (Updated 07/26/21 @ 13:27 by Marian Avila RN) Anesthesia complication H/O lumpectomy H/O mastectomy History of fusion of cervical spine (2011) History of knee replacement (2006) History of lumbar spinal fusion (2009) History of lumbar spinal fusion Hx of bilateral cataract extraction Family History Father Hypertension High cholesterol Pneumonia Mother Hypertension Mental health problem Stroke History of hip surgery Grandfather Heart disease Hypertension High cholesterol Grandmother Hypertension High cholesterol Social History marital status: household members: spouse occupational status: other Smoking Status: Never smoker alcohol intake: current substance use type: does not use Discharge Plan Discharge Plan Patient Disposition: Home Provider Discharge Comment: You were admitted to the hospital, found to have bleeding gastric ulcers (now stopped) and a UTI. DO NOT TAKE ASPIRIN OR NSAIDS (IBU, ETC) EVER AGAIN UNLESS TOLD TO DO SO BY YOUR PHYSICIAN. STOP OXYCODONE. You were treated while here for your UTI, no further antibiotics are needed. Please follow up with surgery in 3 months for repeat EGD. Please follow up with PCP as previously scheduled next month unless you develop shortness of breath, or continued melena after a couple of days from now. Discharge orders & Medications Prescriptions: New esomeprazole magnesium [Nexium] 20 mg capsule,delayed release(DR/EC) 20 mg PO DAILY 90 Days Qty: 90 0RF Continued (DME) Blood Glucose Test Strip See Rx Instructions .ROUTE .MEDSUPPLY Qty: 200 11RF Rx Instructions: use to test blood sugar twice daily as directed coenzyme Q10 [CoQ-10] 100 mg capsule 200 mg PO DAILY 0RF cholecalciferol (vitamin D3) 125 mcg (5,000 unit) capsule 5,000 unit PO QDAY Qty: 0 0RF amlodipine 10 mg tablet 5 mg PO DAILY Qty: 90 3RF gabapentin 300 mg capsule 900 mg PO BEDTIME Qty: 270 3RF Label Comments: Pt reports she's been taking 2 caps recently chlorthalidone 25 mg tablet 12.5 mg PO DAILY 0RF zolpidem 10 mg tablet 5 mg PO BEDTIME PRN (Reason: sleep) Qty: 30 0RF Rx Instructions: takes 2.5mg (DME) pen needle, diabetic [1st Tier Unifine Pentips] 31 gauge x 5/16 needle See Dose Instructions .ROUTE .MEDSUPPLY Qty: 100 11RF Dose Instruction: As directed Rx Instructions: use to inject insulin at bedtime escitalopram oxalate [Lexapro] 10 mg tablet 10 mg PO QDAY Qty: 90 3RF Hold Instructions: med change atorvastatin [Lipitor] 10 mg tablet 10 mg PO HS Qty: 90 3RF carvedilol 25 mg tablet See Rx Instructions .ROUTE .COMPLEX Qty: 60 5RF Dose Instruction: take 1 tablet by mouth twice a day with food or with meals Rx Instructions: take 1 tablet by mouth twice a day with food or with meals metformin 500 mg tablet extended release 24 hr 1,000 mg PO DAILY 0RF glimepiride 4 mg Tablet 8 mg PO QAM 0RF losartan 100 mg tablet 100 mg PO BEDTIME 0RF PreserVision AREDS [id number] Capsule 1 cap PO BID 0RF acetaminophen 325 mg Tablet 975 mg PO Q8H PRN (Reason: Pain, Mild (1-3)) 30 Days 0RF insulin aspart U-100 [Novolog Flexpen U-100 Insulin] 100 unit/mL (3 mL) insulin pen 5 - 6 unit SUBCUT TIDWM 0RF Basaglar KwikPen U-100 Insulin 100 unit/mL (3 mL) Insulin Pen 14 unit SUBCUT BEDTIME 0RF Januvia 50 mg Tablet 100 mg PO DAILY 0RF Discontinued aspirin 81 mg Tablet,Delayed Release (Dr/Ec) 81 mg PO BID Qty: 42 0RF ibuprofen 600 mg Tablet 600 mg PO Q6HR PRN (Reason: Fever/Mild Pain (1-3)) 30 Days 0RF oxycodone 5 mg Tablet 5 mg PO Q4H PRN (Reason: Pain, Moderate (4-6)) Qty: 50 0RF Follow up/Referrals: Sylvie Roy DO [Primary Care Provider] - Diet/Activity/Treatments Diet: Diet as Tolerated Activity: As tolerated Visit Report/Discharge Packet Instructions: DI for Gastric Ulcer, How to Prevent Falls Stand Alone Forms: EGD Result: [facility] Surg Discharge Data Primary Care Provider: Sylvie Roy VTE Deep Vein Thrombosis/Pulmonary Embolism Present on Admission: No
--- NOTE | 2021-08-07 17:38 | PC.NURSE ---
Discharge order received, patient is eager to go home. IV's removed intact. discharge instructions reviewed with patient, she states understanding and has no further questions or concerns at this time. Patient is waiting for her to come pick her up. She states she will arrange a follow up with her PCP.
== END 2021-08-07 18:20 | disposition home or self-care (01) | DRG 377 ==
LOC: ED 19:30 → AC 08-05 13:38
PROVIDERS: Emergency Medicine; Internal Medicine; Surgery; Admitting Provider Nurse Practitioner Family; Emergency Provider Emergency Medicine; Family Provider Family Medicine; PCP Family Medicine; Referring Provider Emergency Medicine; Visit Provider Nurse Practitioner Family
PROC: 0DJ08ZZ Inspection of Upper Intestinal Tract, Via Natural or Artificial Opening Endoscopic (ICD-10-PCS; CPT 43235; principal; 2021-08-07 12:15)
DX: K26.4 Chronic or unspecified duodenal ulcer with hemorrhage (principal); G93.41 Metabolic encephalopathy; N17.9 Acute kidney failure, unspecified; D62 Acute posthemorrhagic anemia; E87.1 Hypo-osmolality and hyponatremia; N30.00 Acute cystitis without hematuria; E87.6 Hypokalemia; K25.4 Chronic or unspecified gastric ulcer with hemorrhage; R29.6 Repeated falls; E78.5 Hyperlipidemia, unspecified; F32.A Depression, unspecified; G47.00 Insomnia, unspecified; E11.649 Type 2 diabetes mellitus with hypoglycemia without coma; I10 Essential (primary) hypertension; Z96.652 Presence of left artificial knee joint; Z79.4 Long term (current) use of insulin; Z79.84 Long term (current) use of oral hypoglycemic drugs; Z20.822 Contact with and (suspected) exposure to COVID-19; Z66 Do not resuscitate
CPT/HCPCS: 36415; 36569; 43235; 70450; 70544; 70551; 71045; 80048; 80053; 81015; 82962; 83036; 83735; 83880; 84443; 84484; 85014; 85018; 85025; 87077; 87086; 87186; 87635; 92522; 93005; 94760; 97110; 97116; 97162; 97166; 97530; 97535; 99231; 99232; 99285; C9803; G0378; C9113; J1650; J1815; J1885; J2704; J3010

== ENCOUNTER → 2021-09-07 09:19 | Outpatient (CLI) | payer MEDICARE, OTHER, SELFPAY ==
[2021-08-14 12:08] VITALS: BMI 32.9
[2021-09-07 10:37] LABS: Add Manual Diff / Slide Review NO; Basophils Absolute Auto 100 /uL (0-100); Basophils Percent Auto 0.9 % (0-2); Eosinophils Absolute Auto 200 /uL (0-450); Hematocrit 27.2 % (36-46); Hemoglobin 9.1 g/dL (12.0-16.0); Lymphocytes Absolute Auto 1100 /uL (1100-4500); Lymphocytes Percent Auto 12.9 % (25-40); Mean Corpuscular HGB Conc 33.5 % (30-36); Mean Corpuscular Hemoglobin 27.6 PG (26-34); Mean Corpuscular Volume 82.2 fL (80-100); Monocytes Absolute Auto 700 /uL (0-900); Monocytes Percent Auto 8.5 % (3-14); Neutrophils Absolute Auto 6200 /uL (1500-7000); Neutrophils Percent Auto 75.7 % (50-75); Platelet Count 391 X10^3/uL (150-400); Red Blood Cell Count 3.31 X10^6/uL (4.0-5.2); Red Cell Distribution Width 14.6 % (11.6-14.8); White Blood Cell Count 8.2 X10^3/uL (4.5-11.0)
[2021-09-07 10:48] LABS: BUN Creatinine Ratio 24.2 (6-22); Blood Urea Nitrogen 39 mg/dL (7-17); Calcium 9.1 mg/dL (8.4-10.2); Carbon Dioxide 28 mmol/L (22-32); Chloride 102 mmol/L (98-107); Estimated Glomerular Filt Rate 31.2 mL/min (>60); Glucose 68 mg/dL (80-110); HEMOLYSIS < 15 (0-50); Potassium 3.7 mmol/L (3.4-5.1); Sodium 140 mmol/L (137-145)
== END ==
PROVIDERS: Family Provider Family Medicine; PCP Family Medicine; Referring Provider Family Medicine; Visit Provider Family Medicine
DX: D64.9 Anemia, unspecified (principal); N18.32 Chronic kidney disease, stage 3b
CPT/HCPCS: 36415; 80048; 85025

== ENCOUNTER → 2021-09-14 11:34 | Outpatient (CLI) | payer MEDICARE, OTHER, SELFPAY ==
[2021-08-14 12:08] VITALS: BMI 32.9
[2021-09-14 14:30] LABS: BUN Creatinine Ratio 23.2 (6-22); Blood Urea Nitrogen 32 mg/dL (7-17); Carbon Dioxide 31 mmol/L (22-32); Chloride 100 mmol/L (98-107); Estimated Glomerular Filt Rate 40 mL/min (>60); Glucose 86 mg/dL (80-110); HEMOLYSIS < 15 (0-50); Potassium 4.1 mmol/L (3.4-5.1); Sodium 138 mmol/L (137-145)
== END ==
PROVIDERS: Family Provider Family Medicine; PCP Family Medicine; Referring Provider Family Medicine; Visit Provider Family Medicine
DX: N18.32 Chronic kidney disease, stage 3b (principal)
CPT/HCPCS: 36415; 80048

== ENCOUNTER → 2021-12-13 09:05 | Outpatient (CLI) | payer MEDICARE, OTHER, SELFPAY ==
[2021-08-14 12:08] VITALS: BMI 32.9
[2021-12-13 10:55] LABS: Add Manual Diff / Slide Review NO; Basophils Absolute Auto 100 /uL (0-100); Basophils Percent Auto 1.1 % (0-2); Eosinophils Absolute Auto 100 /uL (0-450); Eosinophils Percent Auto 1.6 % (2-4); Hematocrit 34.2 % (36-46); Hemoglobin 11.5 g/dL (12.0-16.0); Lymphocytes Absolute Auto 800 /uL (1100-4500); Lymphocytes Percent Auto 12.4 % (25-40); Mean Corpuscular HGB Conc 33.7 % (30-36); Mean Corpuscular Hemoglobin 27.3 PG (26-34); Mean Corpuscular Volume 80.9 fL (80-100); Monocytes Absolute Auto 600 /uL (0-900); Monocytes Percent Auto 9.6 % (3-14); Neutrophils Absolute Auto 4600 /uL (1500-7000); Neutrophils Percent Auto 75.3 % (50-75); Platelet Count 285 X10^3/uL (150-400); Red Blood Cell Count 4.23 X10^6/uL (4.0-5.2); Red Cell Distribution Width 16.5 % (11.6-14.8); White Blood Cell Count 6.2 X10^3/uL (4.5-11.0)
[2021-12-13 11:04] LABS: Alanine Aminotransferase 16 IU/L (<35); Albumin 4.2 g/dL (3.5-5.0); Albumin Globulin Ratio 1.3 (1.0-2.8); Alkaline Phosphatase 70 U/L (38-126); Aspartate Aminotransferase 22 IU/L (14-36); Bilirubin Total 0.7 mg/dL (0.2-1.3); Blood Urea Nitrogen 35 mg/dL (7-17); Calcium 9.2 mg/dL (8.4-10.2); Carbon Dioxide 30 mmol/L (22-32); Chloride 102 mmol/L (98-107); Estimated Glomerular Filt Rate 36 mL/min (>60); Globulin 3.3 g/dL (1.7-4.1); Glucose 136 mg/dL (80-110); HEMOLYSIS < 15 (0-50); Potassium 3.9 mmol/L (3.4-5.1); Sodium 141 mmol/L (137-145); Total Protein 7.5 g/dL (6.3-8.2)
== END ==
PROVIDERS: Internal Medicine Hematology & Oncology; Family Provider Family Medicine; PCP Family Medicine; Referring Provider Family Medicine; Visit Provider Family Medicine
DX: D64.9 Anemia, unspecified (principal); C50.919 Malignant neoplasm of unspecified site of unspecified female breast
CPT/HCPCS: 36415; 80053; 85025

== ENCOUNTER → 2022-01-02 09:02 | Outpatient (CLI) | payer MEDICARE, OTHER, SELFPAY ==
[2021-08-14 12:08] VITALS: BMI 32.9
--- NOTE | 2022-01-02 09:03 | DI.MRI.S_ITS ---
BREAST MRI OF BOTH BREASTS- POST MASTECTOMY: 01/02/2022 CLINICAL: Invasive ductal. PROCEDURE: MR BREAST BI WO/W CON INDICATIONS: breast cancer TECHNIQUE: The patient was placed prone in a dedicated breast imaging coil. Precontrast axial STIR and 3D FLASH without fat saturation sequences were obtained. Both before and after bolus injection of contrast, sequential 1-minute axial 3D FLASH with fat saturation sequences for 3 time points, with subtraction images and maximum intensity projections (MIP's) generated. Delayed sagittal FLASH images with fat saturation were also obtained. IV CONTRAST: 20 cc ProHance IV contrast. Computer-aided detection, including computer algorithm analysis of MRI image data for lesion detection and characterization, pharmacokinetic analysis, with further physician review for interpretation, was performed. COMPARISON: [facility], US, US BREAST LIMITED RIGHT, 09/27/2017, 13:33. [facility], MR, BILATERAL BREAST W FINDINGS: Image quality: Excellent. There is mild background parenchymal enhancement. Right breast: 12 o'clock posterior depth oval ill-defined focus of non mass enhancement measuring 1.1 cm, (20/66), more prominent compared to breast MRI 2019. There is central hypoenhancement. Kinetic analysis demonstrates slow initial phase and persistent delayed phase. Left breast: Left mastectomy. Stable postoperative changes and mild enhancement at the lumpectomy site is unchanged since 2019. Miscellaneous: Enlarged right axillary lymph node measuring 1.1 cm short axis diameter, (20/43), unchanged since 2019. Prior CT-guided right axillary node biopsy on 11/10/2018. No enlarged left axillary lymph nodes. Prior left rib fractures. T2 hyperintense hepatic cysts. No suspicious enhancement. IMPRESSION: INCOMPLETE: NEEDS ADDITIONAL IMAGING EVALUATION 1. Right breast: Small focus of non mass enhancement at 12 o'clock posterior depth which is more prominent. -recommend right breast mammogram and targeted ultrasound for further evaluation. 2. Left breast: Prior mastectomy. Stable postoperative findings. 3. Enlarged right axillary node is similar to 2019. -This lymph node cortex could also be further evaluated with ultrasound. BIRADS 0. Recommend right breast mammogram and targeted ultrasound. COMMENT: The imaging literature indicates that a negative contrast breast MRI examination has a high sensitivity and a moderate specificity for detecting and excluding invasive carcinomas to a detection threshold of 3-5 mm; nonetheless, appropriate clinical and mammographic follow-up are recommended. MRI is not sensitive for detecting DCIS (ductal carcinoma in situ) and may not detect large invasive neoplasms that show only minimal enhancement such as mucinous carcinoma. If there are suspicious calcifications or clinically worrisome palpable masses, then biopsy should still be considered. Invasive neoplasms can be hidden by co-existent and benign enhancement caused by mastitis, hormone therapy effects, radiation therapy, , and recent biopsy or surgery. False positive examinations can occur in a number of circumstances, including breasts that have recently been subject to invasive procedures and those that contain atypical ductal hyperplasia, hormonally stimulated glandular tissue, fat necrosis, or radial scars. Dictated by: Anuel King M.D. on 01/02/2022 at 14:57 This exam was interpreted at Station ID: [id number]. Electronically Signed By: Anuel King M.D. slc/:01/02/2022 15:40:26 letter sent: Additional Imaging Needed ACR BI-RADS Category 0: Incomplete [id number]
== END ==
PROVIDERS: Family Provider Family Medicine; PCP Family Medicine; Referring Provider Internal Medicine Hematology & Oncology; Visit Provider Internal Medicine Hematology & Oncology
DX: C50.912 Malignant neoplasm of unspecified site of left female breast (principal); N64.89 Other specified disorders of breast; R59.0 Localized enlarged lymph nodes; Z90.12 Acquired absence of left breast and nipple
CPT/HCPCS: 77049; A9579

== ENCOUNTER → 2022-01-03 09:31 | Outpatient (CLI) | payer MEDICARE, OTHER, SELFPAY ==
[2021-08-14 12:08] VITALS: BMI 32.9
[2022-01-03 11:38] LABS: COVID19 -Nasal RAPID Negative (Negative)
== END ==
PROVIDERS: Family Provider Family Medicine; PCP Family Medicine; Visit Provider Surgery
DX: Z20.822 Contact with and (suspected) exposure to COVID-19 (principal); Z01.812 Encounter for preprocedural laboratory examination
CPT/HCPCS: 87635; C9803

== ENCOUNTER 2022-01-04 11:05 | Day surgery (SDC) | payer MEDICARE, OTHER, SELFPAY ==
[2021-08-14 12:08] VITALS: BMI 32.9
[2022-01-04] VITALS (7 sets, daily range): BP systolic 115–158; BP diastolic 44–76; PULSE 58–72; RESP 12–18; TEMP 35.7–36.3; O2SAT 84–97; BMI 32.5
--- NOTE | 2022-01-04 | PATH_ITS ---
[facility] Accession Number: [id number] . 01 Material submitted: . stomach - ANTRUM BIOPSIES . 01 Diagnosis: Stomach, Antrum, Biopsies: Antral mucosa with mild chronic gastritis. Negative for Helicobacter organisms by immunohistochemistry. Negative for intestinal metaplasia. Negative for dysplasia or malignancy. [facility] 01/09/2022 1303 Local . 01 Electronically signed: . Michelle Jones MD, Pathologist NPI- [id number] . 01 Gross description: . ANTRUM BIOPSIES: Received in formalin are 2 fragment(s) of bynum, soft tissue measuring 0.4 x 0.2 x 0.1 cm to 0.3 x 0.3 x 0.2 cm submitted entirely in 1 cassette(s) /CPE 01/05/2022 0911 Local . 01 Microscopic: . An immunohistochemical stain was performed to evaluate for Helicobacter organisms and is negative. The control stain showed appropriate reactivity. * This test was developed and its performance characteristics determined by [facility]. It has not been cleared or approved by the U.S. Food and Drug Administration. The FDA has determined that such clearance or approval is not necessary. This test is used for clinical purposes. It should not be regarded as investigational or for research. . 01 Pathologist provided ICD-10: Z87.11 . 01 CPT . 559626, F04967 Specimen Comment: A courtesy copy of this report has been sent to [phone] Performed at: 01 [facility] [address] [place] [address], [place], [place] [id number] MD Magan Alicea MD Phone: [phone]
[2022-01-04] MEDS: LACTATED RINGERS 1,000 ML 100 ML IV (12:04)
--- NOTE | 2022-01-04 12:34 | P.HP_ITS ---
History of Present Illness History of Present Illness Date Patient Seen: 01/04/22 Time Patient Seen: 12:34 Chief complaint: EGD Narrative: Lois had an EGD in August with findings of ulcers. She is here for her follow- up EGD to see if the ulcers have resolved. She did have an episode of melena recently. She is wondering if she needs a colonoscopy as well as it has been several years at least. Patient History Medical History Acute upper GI bleed Anxiety Breast cancer (1992) Breast cancer, left breast (2016) Cataract (2010) Chicken pox Diabetes mellitus (~1987) Fractures GERD (gastroesophageal reflux disease) Hayfever (~1959) History of recurrent ear infection Hyperlipidemia (~1997) Hyperparathyroidism (2013) Hypertension (~1997) Impingement syndrome of right shoulder Left knee DJD Lumbar spine pain Measles Obesity (BMI 30-39.9) ROSCOE (obstructive sleep apnea) Osteopenia Osteoporosis Pneumonia Ribs, multiple fractures Shoulder pain (2014) Sternal fracture (2014) Unilateral primary osteoarthritis, left knee Urinary incontinence (2012) Vertigo (2011) Surgical History Anesthesia complication H/O lumpectomy H/O mastectomy History of fusion of cervical spine (2011) History of knee replacement (2006) History of lumbar spinal fusion (2009) History of lumbar spinal fusion Hx of bilateral cataract extraction Status post left knee replacement Family & Social History Family History Father Hypertension High cholesterol Pneumonia Mother Hypertension Mental health problem Stroke History of hip surgery Grandfather Heart disease Hypertension High cholesterol Grandmother Hypertension High cholesterol Social History: household members spouse Tobacco & Substance use: Smoking Status Never smoker alcohol intake current alcohol intake frequency holiday/special occasion Substance Use Type does not use Meds Home Medications and Allergies Home Medications Medication Instructions Recorded Confirmed Type pen needle, diabetic 31 gauge x #100 ea 03/03/18 12/25/21 Rx /16 (1st Tier Unifine Pentips) metformin 500 mg tablet,extended 1,000 mg PO DAILY 01/29/20 12/25/21 History release 24 hr insulin glargine 100 unit/mL (3 14 unit SUBCUT BEDTIME 06/14/20 12/25/21 History mL) subcutaneous pen (Basaglar KwikPen U-100 Insulin) sitagliptin 50 mg tablet (Januvia) 100 mg PO DAILY 06/14/20 12/25/21 History cholecalciferol (vitamin D3) 125 5,000 unit PO QDAY #0 caps 09/29/20 12/25/21 History mcg (5,000 unit) capsule coenzyme Q10 100 mg capsule 200 mg PO DAILY 09/29/20 12/25/21 History (CoQ-10) chlorthalidone 25 mg tablet 12.5 mg PO DAILY 07/03/21 01/04/22 History carvedilol 25 mg tablet See Rx Instructions .Route 07/11/21 01/04/22 Rx .COMPLEX #60 tabs glimepiride 4 mg tablet 8 mg PO QAM 07/26/21 12/25/21 History vitamins A,C,J-gyoq-xdqnts 14,320 1 cap PO BID 07/26/21 12/25/21 History unit-226 mg-200 unit capsule (PreserVision AREDS) insulin aspart U-100 100 unit/mL 5 - 6 unit SUBCUT TIDWM 08/05/21 12/25/21 History (3 mL) subcutaneous pen (Novolog Flexpen U-100 Insulin aspart) amlodipine 10 mg tablet 5 mg PO DAILY #90 tabs 08/08/21 01/04/22 Rx escitalopram oxalate 10 mg tablet 10 mg PO QDAY #90 tabs 08/08/21 01/04/22 Rx (Lexapro) atorvastatin 10 mg tablet (Lipitor) 10 mg PO HS #90 tabs 09/19/21 01/04/22 Rx gabapentin 300 mg capsule 900 mg PO BEDTIME #270 caps 09/19/21 01/04/22 Rx losartan 100 mg tablet 100 mg PO BEDTIME #90 tabs 09/19/21 12/25/21 Rx blood sugar diagnostic (Blood #200 ea 10/19/21 12/25/21 Rx Glucose Test strips) zolpidem 10 mg tablet 5 mg PO BEDTIME PRN sleep #30 tabs 12/22/21 12/25/21 Rx Allergies Allergy/AdvReac Type Severity Reaction Status Date / Time Anesthetics - Amide Type - Allergy Severe PROJECTILE Verified 01/04/22 11:40 Select A VOMITING [Anesthetics - Amide Type] Anesthetics - Keke Type- Allergy Severe PROJECTILE Verified 01/04/22 11:40 Parabens VOMITING [Anesthetics - Keke Type] ibuprofen Allergy Intermediate gastic Verified 01/04/22 11:40 bleed Exam Vital Signs (past 8 hours): - 01/04/22 11:48 Temperature 96.3 F L Pulse Rate 72 Respiratory Rate 18 Blood Pressure 130/76 Pulse Oximetry 97 Oxygen Delivery Method Room Air Oxygen Delivery Method Room Air Const General: comfortable Resp Effort & Inspection: normal respiratory effort Assessment & Plan Assessment and plan (1) History of peptic ulcer: Status: Acute Plan 76-year-old woman with a history of ulcers here for an EGD. We reviewed the risks and benefits and she would like to proceed. We will plan to have her come into the office in a few weeks to go over the results of the procedure and determine if she needs any other procedures like a colonoscopy. Time Spent With Patient Critical Care time: I spent a total of [] minutes of critical care time on this patient's care today; this time is exclusive of procedural time.
[2022-01-04] MEDS: MIDAZOLAM 5 MG/5 ML VIAL 4 MG IV (12:53)
[2022-01-04] MEDS: fentaNYL 250 MCG/5 ML INJ 50 MCG IV (12:53)
--- NOTE | 2022-01-04 12:57 | PM.OP.EGD ---
Operative Date/Time/Diagnoses Date of procedure: 01/04/22 Time of procedure: 12:57 Pre-op diagnosis: History of peptic ulcers Post-op diagnosis: same Procedure & Clinicians Study performed: Esophagogastroduodenoscopy Same procedure as scheduled: Yes Surgeon: Saravanan Atkinson Procedure Notes Procedure in detail: Surgeon: Saravanan Atkinson MD A timeout was performed. Topical lidocaine was administered to the posterior oropharynx. A bite blocked was placed. The patient was positioned in the left lateral decubitus position. Sedation was administered with Versed and fentanyl. The endoscope was inserted through the bite block and passed through the esophagus and stomach and into the duodenum. The duodenal mucosa appeared normal. The scope was withdrawn into the duodenal bulb and no polyps or ulcers were noted. The scope was withdrawn into the stomach. There were no obvious ulcers. There did appear to be an area of scar from the prior healed ulcer. The rest of the stomach was normal. The scope was retroflexed and no abnormalities were noted. The scope was withdrawn into the esophagus and no abnormalities were noted. The remainder of the esophagus was normal. The scope was withdrawn. The patient was awakened and brought to recovery. Sedation time: 10 Versed: 4 Fentanyl: 50 Findings: No evidence of active ulceration Post-procedure Disposition: PACU
--- NOTE | 2022-01-04 13:32 | SUR.PHASEI ---
1330: Pt VSS, denies any distress, slightly drowzy, and ready to transfer to phase 2. Discharge instructions reviewed with patient and spouse with time allowed for questions. Written instructions placed in envelope and given to patient. Handoff to MESSI Vega.
== END 2022-01-04 13:50 | disposition home or self-care (01) ==
PROVIDERS: Family Provider Family Medicine; PCP Family Medicine; Referring Provider Surgery; Visit Provider Surgery
PROC: 0DJ08ZZ Inspection of Upper Intestinal Tract, Via Natural or Artificial Opening Endoscopic (ICD-10-PCS; CPT 43235; principal; 2022-01-04 12:15)
DX: Z87.11 Personal history of peptic ulcer disease (principal)
CPT/HCPCS: 43235; 82962; 99152; J2250; J3010

== ENCOUNTER → 2022-01-24 09:05 | Outpatient (CLI) | payer MEDICARE, OTHER, SELFPAY ==
[2021-08-14 12:08] VITALS: BMI 32.9
--- NOTE | 2022-01-24 09:06 | DI.MG.S_ITS ---
UNILATERAL RIGHT DIGITAL DIAGNOSTIC MAMMOGRAM 3D/2D: 01/24/2022 CLINICAL: Short term follow up of the right breast. Comparison is made to exams dated: 01/02/2022 breast MRI - [facility], 09/27/2017 ultrasound - [facility], 09/19/2017 ultrasound, 09/19/2017 mammogram, 09/03/2017 mammogram, and 03/17/2019 breast MRI - [facility]. The tissue of right breast is heterogeneously dense. This may lower the sensitivity of mammography. There is a asymmetry in the right breast posterior depth superior region seen on the mediolateral oblique view only. This likely correlates with breast MRI findings. No other significant masses or calcifications are seen in the breast. IMPRESSION: INCOMPLETE: NEEDS ADDITIONAL IMAGING EVALUATION The asymmetry in the right breast is indeterminate. A targeted ultrasound is recommended and will immediately follow. This exam was interpreted at Station ID: [id number]. NOTE: For mammograms, a report in lay terms will be sent to the patient. Approximately 15% of breast malignancies will not be visualized mammographically. In the management of a palpable breast mass, a negative mammogram must not discourage biopsy of a clinically suspicious lesion. Electronically Signed By: Anuel King M.D. slc/:01/24/2022 09:38:11 ACR BI-RADS Category 0: Incomplete [id number]
--- NOTE | 2022-01-24 09:06 | DI.US.S_ITS ---
LIMITED ULTRASOUND OF RIGHT BREAST AND AXILLA: 01/24/2022 CLINICAL: Patient returns today to evaluate a focal asymmetry in the right breast. Comparison is made to exams dated: 01/24/2022 mammogram, 01/02/2022 breast MRI, 03/17/2019 breast MRI, 09/19/2017 mammogram - [facility], and 09/27/2017 ultrasound - [facility]. CT chest 05/12/2021, 03/15/2020. Color flow and real-time ultrasound of the right breast 12 o'clock, and axilla regions were performed. [place] Torre scale images of the real-time examination were reviewed. No sonographic mass in the right breast at 12 o'clock posterior depth in the region of enhancement seen on MRI and asymmetry seen on mammogram. There also is a stable benign 0.9 cm oval lymph node with a circumscribed margin in the right axilla. This oval lymph node is hypoechoic with fatty hilum. Color flow imaging demonstrates that there is no vascularity present. IMPRESSION: SUSPICIOUS OF MALIGNANCY No sonographic mass. Stereotactic biopsy is recommended of the asymmetry in the right breast at 12 o'clock posterior depth which is at a low suspicion for malignancy. Stable 0.9 cm oval lymph node in the right axilla is benign. Exam findings were discussed with the patient by Dr. King. This exam was interpreted at Station ID: [id number]. Electronically Signed By: Anuel King M.D. slc/:01/24/2022 10:33:14 letter sent: Biopsy Required Ultrasound BI-RADS: 4a Low suspicion for malignancy
== END ==
PROVIDERS: Family Provider Family Medicine; PCP Family Medicine; Referring Provider Internal Medicine Hematology & Oncology; Visit Provider Internal Medicine Hematology & Oncology
DX: R92.8 Other abnormal and inconclusive findings on diagnostic imaging of breast (principal); C50.919 Malignant neoplasm of unspecified site of unspecified female breast; N64.89 Other specified disorders of breast
CPT/HCPCS: 76642; 77065; G0279

== ENCOUNTER → 2022-02-14 13:49 | Outpatient (CLI) | payer MEDICARE, OTHER, SELFPAY ==
[2021-08-14 12:08] VITALS: BMI 32.9
[2022-02-14 14:14] LABS: Add Manual Diff / Slide Review NO; Basophils Absolute Auto 100 /uL (0-100); Basophils Percent Auto 1.2 % (0-2); Eosinophils Absolute Auto 200 /uL (0-450); Eosinophils Percent Auto 2.5 % (2-4); Hematocrit 33.6 % (36-46); Hemoglobin 11.5 g/dL (12.0-16.0); Lymphocytes Absolute Auto 1100 /uL (1100-4500); Lymphocytes Percent Auto 15.3 % (25-40); Mean Corpuscular HGB Conc 34.2 % (30-36); Mean Corpuscular Hemoglobin 28.5 PG (26-34); Mean Corpuscular Volume 83.5 fL (80-100); Monocytes Absolute Auto 700 /uL (0-900); Monocytes Percent Auto 9.7 % (3-14); Neutrophils Absolute Auto 5000 /uL (1500-7000); Neutrophils Percent Auto 71.3 % (50-75); Platelet Count 261 X10^3/uL (150-400); Red Blood Cell Count 4.03 X10^6/uL (4.0-5.2); Red Cell Distribution Width 14.7 % (11.6-14.8)
[2022-02-14 14:32] LABS: HEMOLYSIS < 15 (0-50); Iron 47 ug/dL (37-170)
[2022-02-14 14:35] LABS: Alanine Aminotransferase 18 IU/L (<35); Albumin 4.1 g/dL (3.5-5.0); Albumin Globulin Ratio 1.2 (1.0-2.8); Alkaline Phosphatase 70 U/L (38-126); Aspartate Aminotransferase 22 IU/L (14-36); BUN Creatinine Ratio 23.2 (6-22); Bilirubin Total 0.6 mg/dL (0.2-1.3); Blood Urea Nitrogen 32 mg/dL (7-17); Calcium 9.3 mg/dL (8.4-10.2); Carbon Dioxide 26 mmol/L (22-32); Chloride 103 mmol/L (98-107); Estimated Glomerular Filt Rate 40 mL/min (>60); Globulin 3.3 g/dL (1.7-4.1); Glucose 150 mg/dL (80-110); HEMOLYSIS < 15 (0-50); Sodium 139 mmol/L (137-145); Total Protein 7.4 g/dL (6.3-8.2)
[2022-02-14 14:43] LABS: Percent Iron Saturation 16 % (15-50); Total Iron Binding Capacity 297 ug/dL (265-497); Transferrin 220 mg/dL (206-381)
[2022-02-14 15:08] LABS: Ferritin 42 ng/mL (11-264)
== END ==
PROVIDERS: Family Provider Family Medicine; PCP Family Medicine; Referring Provider Internal Medicine Hematology & Oncology; Visit Provider Internal Medicine Hematology & Oncology
DX: K92.2 Gastrointestinal hemorrhage, unspecified (principal); C50.912 Malignant neoplasm of unspecified site of left female breast
CPT/HCPCS: 36415; 80053; 82728; 83540; 83550; 85025

== ENCOUNTER 2022-02-21 10:30 | Outpatient (RCR) | payer MEDICARE, OTHER, SELFPAY ==
[2020-11-02 10:03] VITALS: BMI 33.1
[2021-08-04 20:52] VITALS: BMI 32.9
--- NOTE | 2021-08-10 15:47 | PT.OIE ---
Current Diagnoses Unilateral primary osteoarthritis, right knee (08/10/21) Pain in left knee (08/10/21) Stiffness of left knee, not elsewhere classified (08/10/21) Other abnormalities of gait and mobility (08/10/21) Aftercare following joint replacement surgery (08/10/21) Past Medical History (Last Reviewed 08/05/21 @ 01:42 by Eyad Bustillos DO) Acute upper GI bleed Anxiety Breast cancer (1992) Breast cancer, left breast (2016) Cataract (2010) Chicken pox Diabetes mellitus (~1987) Fractures GERD (gastroesophageal reflux disease) H/O lumpectomy H/O mastectomy Hayfever (~1959) History of fusion of cervical spine (2011) History of lumbar spinal fusion (2009) History of lumbar spinal fusion History of recurrent ear infection Hx of bilateral cataract extraction Hyperlipidemia (~1997) Hyperparathyroidism (2013) Hypertension (~1997) Impingement syndrome of right shoulder Left knee DJD Lumbar spine pain Measles Obesity (BMI 30-39.9) ROSCOE (obstructive sleep apnea) Osteopenia Osteoporosis Pneumonia Ribs, multiple fractures Shoulder pain (2014) Sternal fracture (2014) Unilateral primary osteoarthritis, left knee Urinary incontinence (2012) Vertigo (2011) Past Surgical History (Last Updated 07/26/21 @ 13:27 by Marian Avila RN) Anesthesia complication H/O lumpectomy H/O mastectomy History of fusion of cervical spine (2011) History of knee replacement (2006) History of lumbar spinal fusion (2009) History of lumbar spinal fusion Hx of bilateral cataract extraction Visit Care Team Role Provider Type Sylvie Roy DO Family Provider Physician Primary Care Provider Specialty: Family Practice Address: [address] [place] [address], [place], [place], [address] Email: [email or web address] Scott Rodriguez MD Attending Provider Physician Referring Provider Specialty: Orthopedics Orthopedic Surgery Address: [address] [place] [address], [address] Email: [email or web address] Physical Therapy Initial Evaluation PT-OP-A Visit Information Start: 08/10/21 15:19 Freq: Status: Active Protocol: Document 08/10/21 13:45 DCW (Rec: 08/10/21 15:36 [facility] [id number]) Out-Patient Physical Therapy Visit Information Visit Information Visit Type Initial Evaluation Visit Start Time 13:45 Visit Stop Time 14:30 Total Visit Minutes 45 Visit Number 1 Number of LEASE ADMINISTRATION SUPERVISOR Visits 0 Evaluation Information Evaluation Date 08/10/21 PT-OP-B Current Condition Start: 08/10/21 15:19 Freq: Status: Active Protocol: Document 08/10/21 13:45 DCW (Rec: 08/10/21 15:36 [facility] [id number]) Current Condition History of Current Condition Onset Date 08/02/21 Current Complaints Left knee pain, stiffness, and weakness s/p TKA History of Current Condition Pt is a 75 year old female presenting eight days s/p L TKA. Pt went home following her surgery, but unfortunately experienced three falls, slurred speech, and confusion. Pt was admitted to the hospital 08/05/21-08/08/21 with concerns of a TBI/CVA. Pt eventually diagnosed with a GI bleed/gastric ulcers and a UTI. Pt feeling much better now, and was able to get some PT while in the hospital and was able to get up and move around more. Notes her knee hurts horribly. Pt ambulates with a FWW, notes she does have a 4WW, but doesn't like to use it, feels it is too easy for the walker to get away from me. Has been able to do some of her HEP, including heel slides, quad/ glute sets, adductor squeeze, SLR, SAQ, and ankle pumps. Treatment Goals Patient/Caregiver Goals My goal is to do my six weeks of rehab and be good enough to be done with it. PT-OP-C Subjective Start: 08/10/21 15:19 Freq: Status: Active Protocol: Document 08/10/21 13:45 DCW (Rec: 08/10/21 15:36 DC [id number]) OP-PT Subjective Patient Comments Patient Comments Overall I'm pleased, but I don't think I'm walking as well today as I was yesterday. Patient Questionnaires Lower Extremity Functional Scale LEFS Score 38/80 = 47.5% LEFS Impairment 40 to 59% Impaired (Score 32- 47) OP-PT Pain Assessment Pain Assessment Grid Paper Pain Assessment Grid Completed Yes Location Left knee Intensity 6 Scale Used Numeric (0 - 10) Description Aching,Tightness,Throbbing PT-OP-E Functional Tests Start: 08/10/21 15:19 Freq: Status: Active Protocol: Document 08/10/21 13:45 DCW (Rec: 08/10/21 15:36 DCW [id number]) Functional Tests 6 Minute Walk Test Distance 368' Device Used FWW Comments 1.02 ft/sec PT-OP-J Posture/Palpation/Skin Start: 08/10/21 15:19 Freq: Status: Active Protocol: Document 08/10/21 13:45 DCW (Rec: 08/10/21 15:36 DCW [id number]) Skin Assessment Incisional Assessment Incision Appearance/Comments Surgical incision covered in dressing, appears C, D, I PT-OP-K Range of Motion Start: 08/10/21 15:19 Freq: Status: Active Protocol: Document 08/10/21 13:45 DCW (Rec: 08/10/21 15:36 DCW [id number]) Knee Goniometric Range of Motion Knee Right Knee ROM WFL Yes Patient Position Supine Flexion Active (degrees) 0 Extension Active (degrees) 120 Left Knee ROM WFL No Patient Position Supine Flexion Active (degrees) 92 Flexion Passive (degrees) 94 Extension Active (degrees) 10 PT-OP-M Strength Start: 08/10/21 15:19 Freq: Status: Active Protocol: Document 08/10/21 13:45 DCW (Rec: 08/10/21 15:36 DCW [id number]) Knee Strength Knee Manual Muscle Testing Right Flexion (S2) 4+ Good+ Extension (L3) 4 Good Left Flexion (S2) 4 Good Extension (L3) 3- Fair- PT-OP-T Assessment and Plan Start: 08/10/21 15:19 Freq: Status: Active Protocol: Document 08/10/21 13:45 DCW (Rec: 08/10/21 15:47 DCW [id number]) Physical Therapy Assessment Rehab Potential Rehabilitation Potential Good Evaluation Complexity Number of Personal Factors/Comorbidities 3 or More Number of Body Systems Impaired 1-2 Clinical Presentation at Evaluation Stable Impairments Impairments Activity Tolerance,Functional Activities,Functional Mobility ,Gait,Pain,ROM,Soft Tissue Mobility,Strength Goals Three Impairment Left knee AROM limited to 10?- 92? Radiological Engineer Goal (LTG) Pt to increase left knee AROM to 0?-120? to improve ability to perform transfers and ascend/descend stairs LTG Duration 10/10/21 Two Impairment Pt ambulates 368' during 6 MWT Radiological Engineer Goal (LTG) A walking speed of less than 1 .87 ft/sec is indicative of further functional decline in older adults. Pt to increase distance of 6 MWT to at least 709' without an assistive device to demonstrate increased functional mobility and improved independence. LTG Duration 10/10/21 One Impairment Pt does not have an appropriate home exercise program Short Term Goal (STG) Pt to be independent and compliant with an appropriate HEP STG Duration 09/10/21 Assessment Summary Assessment Pt presents with signs and symptoms as expected eight days s/p L TKA. Pt is already doing some appropriate HEP, is showing fairly good ROM, with AROM 10?-92?. Gait limited by decreased activity tolerance and pain/weakness in left knee . Good step-through gait until pt begins to fatigue, then transitions to more of a step- to. Pt should benefit from skilled therapy focusing on ROM, strengthening, gait, and improving activity tolerance Physical Therapy Plan Frequency and Duration Frequency of Treatment 2x/Week Duration of Treatment Two months Plan of Care Start Date 08/10/21 Plan of Care End Date 10/10/21 Therapeutic Interventions Therapeutic Interventions Aquatic Therapy,Balance Training,Gait Training,Home Exercise Program,Manual Therapy,Neuromuscular Re- education,Patient/Caregiver Education,Self-Care/Home Management,Soft Tissue Mobilization,Therapeutic Activities,Therapeutic Exercises Modalities Cold Pack/Ice Massage,Electric Stimulation,Hot Packs, Ultrasound Next Visit Focus/Plan Next Note Type Treatment Note Next Visit Plan ROM, strengthening, flexibility
--- NOTE | 2021-08-10 15:47 | PT.OPPOC ---
Physical, Occupational & Speech Therapy At [facility] Current Diagnoses Unilateral primary osteoarthritis, right knee (08/10/21) Pain in left knee (08/10/21) Stiffness of left knee, not elsewhere classified (08/10/21) Other abnormalities of gait and mobility (08/10/21) Aftercare following joint replacement surgery (08/10/21) Visit Care Team Role Provider Type Sylvie Roy DO Family Provider Physician Primary Care Provider Specialty: [facility] Address: [address] [place] [address], [place], [address] Email: [email or web address] Scott Rodriguez MD Attending Provider Physician Referring Provider Specialty: Orthopedics Orthopedic Surgery Address: [address] [place] [address], [address] Email: [email or web address] Plan Of Care PT-OP-T Assessment and Plan Start: 08/10/21 15:19 Freq: Status: Active Protocol: Document 08/10/21 13:45 DCW (Rec: 08/10/21 15:47 DCW [id number]) Physical Therapy Assessment Rehab Potential Rehabilitation Potential Good Evaluation Complexity Number of Personal Factors/Comorbidities 3 or More Number of Body Systems Impaired 1-2 Clinical Presentation at Evaluation Stable Impairments Impairments Activity Tolerance,Functional Activities,Functional Mobility ,Gait,Pain,ROM,Soft Tissue Mobility,Strength Goals Three Impairment Left knee AROM limited to 10?- 92? Land Department Head Goal (LTG) Pt to increase left knee AROM to 0?-120? to improve ability to perform transfers and ascend/descend stairs LTG Duration 10/10/21 Two Impairment Pt ambulates 368' during 6 MWT Mcfp Goal (LTG) A walking speed of less than 1 .87 ft/sec is indicative of further functional decline in older adults. Pt to increase distance of 6 MWT to at least 709' without an assistive device to demonstrate increased functional mobility and improved independence. LTG Duration 10/10/21 One Impairment Pt does not have an appropriate home exercise program Short Term Goal (STG) Pt to be independent and compliant with an appropriate HEP STG Duration 09/10/21 Assessment Summary Assessment Pt presents with signs and symptoms as expected eight days s/p L TKA. Pt is already doing some appropriate HEP, is showing fairly good ROM, with AROM 10?-92?. Gait limited by decreased activity tolerance and pain/weakness in left knee . Good step-through gait until pt begins to fatigue, then transitions to more of a step- to. Pt should benefit from skilled therapy focusing on ROM, strengthening, gait, and improving activity tolerance Physical Therapy Plan Frequency and Duration Frequency of Treatment 2x/Week Duration of Treatment Two months Plan of Care Start Date 08/10/21 Plan of Care End Date 10/10/21 Therapeutic Interventions Therapeutic Interventions Aquatic Therapy,Balance Training,Gait Training,Home Exercise Program,Manual Therapy,Neuromuscular Re- education,Patient/Caregiver Education,Self-Care/Home Management,Soft Tissue Mobilization,Therapeutic Activities,Therapeutic Exercises Modalities Cold Pack/Ice Massage,Electric Stimulation,Hot Packs, Ultrasound Next Visit Focus/Plan Next Note Type Treatment Note Next Visit Plan ROM, strengthening, flexibility Plan of Care Dates Plan of Care Start Date 08/10/21 Plan of Care End Date 10/10/21 Electronically Signed by: Taran Elizabeth, PT 08/10/21 0297 Please Sign and Return: I have reviewed this Plan of Care and certify that the skilled therapy services above are required to meet the patient?s needs. Physician Signature Date Printed Name and Credentials Clinical Instructor Signature Printed Name and Credentials
--- NOTE | 2021-08-14 14:23 | PT.OTN ---
Current Diagnoses Unilateral primary osteoarthritis, right knee (08/14/21) Pain in left knee (08/14/21) Stiffness of left knee, not elsewhere classified (08/14/21) Other abnormalities of gait and mobility (08/14/21) Aftercare following joint replacement surgery (08/14/21) Physical Therapy Treatment Note PT-OP-A Visit Information Start: 08/10/21 15:19 Freq: Status: Active Protocol: Document 08/14/21 13:45 DCW (Rec: 08/14/21 14:23 DCW [id number]) Out-Patient Physical Therapy Visit Information Visit Information Visit Type Treatment Note Visit Start Time 13:45 Visit Stop Time 14:35 Total Visit Minutes 50 Visit Number 2 Number of RACK PULLER Visits 0 Evaluation Information Evaluation Date 08/10/21 PT-OP-B Current Condition Start: 08/10/21 15:19 Freq: Status: Active Protocol: Document 08/10/21 13:45 DCW (Rec: 08/10/21 15:36 DCW [id number]) Current Condition History of Current Condition Onset Date 08/02/21 Current Complaints Left knee pain, stiffness, and weakness s/p TKA History of Current Condition Pt is a 75 year old female presenting eight days s/p L TKA. Pt went home following her surgery, but unfortunately experienced three falls, slurred speech, and confusion. Pt was admitted to the hospital 08/05/21-08/08/21 with concerns of a TBI/CVA. Pt eventually diagnosed with a GI bleed/gastric ulcers and a UTI. Pt feeling much better now, and was able to get some PT while in the hospital and was able to get up and move around more. Notes her knee hurts horribly. Pt ambulates with a FWW, notes she does have a 4WW, but doesn't like to use it, feels it is too easy for the walker to get away from me. Has been able to do some of her HEP, including heel slides, quad/ glute sets, adductor squeeze, SLR, SAQ, and ankle pumps. Treatment Goals Patient/Caregiver Goals My goal is to do my six weeks of rehab and be good enough to be done with it. PT-OP-C Subjective Start: 08/10/21 15:19 Freq: Status: Active Protocol: Document 08/14/21 13:45 DCW (Rec: 08/14/21 14:23 DCW [id number]) OP-PT Subjective Patient Comments Patient Comments Pt had her bandage removed earlier today. PT-OP-E Functional Tests Start: 08/10/21 15:19 Freq: Status: Active Protocol: Document 08/10/21 13:45 DCW (Rec: 08/10/21 15:36 DCW [id number]) Functional Tests 6 Minute Walk Test Distance 368' Device Used FWW Comments 1.02 ft/sec PT-OP-J Posture/Palpation/Skin Start: 08/10/21 15:19 Freq: Status: Active Protocol: Document 08/10/21 13:45 DCW (Rec: 08/10/21 15:36 DCW [id number]) Skin Assessment Incisional Assessment Incision Appearance/Comments Surgical incision covered in dressing, appears C, D, I PT-OP-K Range of Motion Start: 08/10/21 15:19 Freq: Status: Active Protocol: Document 08/10/21 13:45 DCW (Rec: 08/10/21 15:36 DCW [id number]) Knee Goniometric Range of Motion Knee Right Knee ROM WFL Yes Patient Position Supine Flexion Active (degrees) 0 Extension Active (degrees) 120 Left Knee ROM WFL No Patient Position Supine Flexion Active (degrees) 92 Flexion Passive (degrees) 94 Extension Active (degrees) 10 PT-OP-M Strength Start: 08/10/21 15:19 Freq: Status: Active Protocol: Document 08/10/21 13:45 DCW (Rec: 08/10/21 15:36 DCW [id number]) Knee Strength Knee Manual Muscle Testing Right Flexion (S2) 4+ Good+ Extension (L3) 4 Good Left Flexion (S2) 4 Good Extension (L3) 3- Fair- PT-OP-Q Treatments Start: 08/10/21 15:19 Freq: Status: Active Protocol: Document 08/14/21 13:45 DCW (Rec: 08/14/21 14:23 DCW [id number]) Cardio Equipment Recumbent Bicycle Duration (Minutes) 5 Resistance 0 Seat Position 4 Therapeutic Exercises Supine Exercises 2 Supine Exercise Name Knee extension stretch Side left Reps/Minutes 2' 1 Supine Exercise Name SAQ Side bilateral Sitting Exercises 2 Sitting Exercise Name Hamstring curl Side bilateral Resistance Lv 3 1 Sitting Exercise Name LAQ Side bilateral Standing Exercises 2 Standing Exercise Name Step flexion stretch Side left 1 Standing Exercise Name TKE Side left Resistance Lv 1 T-band PT-OP-R Modalities Start: 08/10/21 15:19 Freq: Status: Active Protocol: Document 08/14/21 13:45 DCW (Rec: 08/14/21 14:23 DCW [id number]) Electric Stimulation Electric Stimulation Interferential Current (IFC) Body Location L knee Duration (Minutes) 15 Intensity 16 Cycle Continuous Patient Position Hooklying Combined With Heat/Cold Cold Pack PT-OP-T Assessment and Plan Start: 08/10/21 15:19 Freq: Status: Active Protocol: Document 08/14/21 13:45 DCW (Rec: 08/14/21 14:23 DCW [id number]) Physical Therapy Assessment Impairments Impairments Activity Tolerance,Functional Activities,Functional Mobility ,Gait,Pain,ROM,Soft Tissue Mobility,Strength Goals Three Impairment Left knee AROM limited to 10?- 92? Half-Way Goal (LTG) Pt to increase left knee AROM to 0?-120? to improve ability to perform transfers and ascend/descend stairs LTG Duration 10/10/21 Two Impairment Pt ambulates 368' during 6 MWT Half-Way Goal (LTG) A walking speed of less than 1 .87 ft/sec is indicative of further functional decline in older adults. Pt to increase distance of 6 MWT to at least 709' without an assistive device to demonstrate increased functional mobility and improved independence. LTG Duration 10/10/21 One Impairment Pt does not have an appropriate home exercise program Short Term Goal (STG) Pt to be independent and compliant with an appropriate HEP STG Duration 09/10/21 Assessment Summary Assessment Pt experiencing expected levels of post-op pain, which results in some mild self- limiting behavior, but overall tolerating treatment well, reacted well to e-stim and ice . Physical Therapy Plan Frequency and Duration Frequency of Treatment 2x/Week Duration of Treatment Two months Plan of Care Start Date 08/10/21 Plan of Care End Date 10/10/21 Therapeutic Interventions Therapeutic Interventions Aquatic Therapy,Balance Training,Gait Training,Home Exercise Program,Manual Therapy,Neuromuscular Re- education,Patient/Caregiver Education,Self-Care/Home Management,Soft Tissue Mobilization,Therapeutic Activities,Therapeutic Exercises Modalities Cold Pack/Ice Massage,Electric Stimulation,Hot Packs, Ultrasound Next Visit Focus/Plan Next Note Type Treatment Note Next Visit Plan ROM, strengthening, flexibility
--- NOTE | 2021-08-17 14:24 | PT.OTN ---
Current Diagnoses Unilateral primary osteoarthritis, right knee (08/17/21) Pain in left knee (08/17/21) Stiffness of left knee, not elsewhere classified (08/17/21) Other abnormalities of gait and mobility (08/17/21) Aftercare following joint replacement surgery (08/17/21) Physical Therapy Treatment Note PT-OP-A Visit Information Start: 08/10/21 15:19 Freq: Status: Active Protocol: Document 08/17/21 13:45 DCW (Rec: 08/17/21 14:24 DCW [id number]) Out-Patient Physical Therapy Visit Information Visit Information Visit Type Treatment Note Visit Start Time 13:45 Visit Stop Time 14:35 Total Visit Minutes 50 Visit Number 3 Number of NATIONAL ACCOUNTS SALES Visits 0 Evaluation Information Evaluation Date 08/10/21 PT-OP-B Current Condition Start: 08/10/21 15:19 Freq: Status: Active Protocol: Document 08/10/21 13:45 DCW (Rec: 08/10/21 15:36 DCW [id number]) Current Condition History of Current Condition Onset Date 08/02/21 Current Complaints Left knee pain, stiffness, and weakness s/p TKA History of Current Condition Pt is a 75 year old female presenting eight days s/p L TKA. Pt went home following her surgery, but unfortunately experienced three falls, slurred speech, and confusion. Pt was admitted to the hospital 08/05/21-08/08/21 with concerns of a TBI/CVA. Pt eventually diagnosed with a GI bleed/gastric ulcers and a UTI. Pt feeling much better now, and was able to get some PT while in the hospital and was able to get up and move around more. Notes her knee hurts horribly. Pt ambulates with a FWW, notes she does have a 4WW, but doesn't like to use it, feels it is too easy for the walker to get away from me. Has been able to do some of her HEP, including heel slides, quad/ glute sets, adductor squeeze, SLR, SAQ, and ankle pumps. Treatment Goals Patient/Caregiver Goals My goal is to do my six weeks of rehab and be good enough to be done with it. PT-OP-C Subjective Start: 08/10/21 15:19 Freq: Status: Active Protocol: Document 08/17/21 13:45 DCW (Rec: 08/17/21 14:24 DCW [id number]) OP-PT Subjective Patient Comments Patient Comments My leg hurt so badly Saturday after I was here. PT-OP-E Functional Tests Start: 08/10/21 15:19 Freq: Status: Active Protocol: Document 08/10/21 13:45 DCW (Rec: 08/10/21 15:36 DCW [id number]) Functional Tests 6 Minute Walk Test Distance 368' Device Used FWW Comments 1.02 ft/sec PT-OP-J Posture/Palpation/Skin Start: 08/10/21 15:19 Freq: Status: Active Protocol: Document 08/10/21 13:45 DCW (Rec: 08/10/21 15:36 DCW [id number]) Skin Assessment Incisional Assessment Incision Appearance/Comments Surgical incision covered in dressing, appears C, D, I PT-OP-K Range of Motion Start: 08/10/21 15:19 Freq: Status: Active Protocol: Document 08/10/21 13:45 DCW (Rec: 08/10/21 15:36 DCW [id number]) Knee Goniometric Range of Motion Knee Right Knee ROM WFL Yes Patient Position Supine Flexion Active (degrees) 0 Extension Active (degrees) 120 Left Knee ROM WFL No Patient Position Supine Flexion Active (degrees) 92 Flexion Passive (degrees) 94 Extension Active (degrees) 10 PT-OP-M Strength Start: 08/10/21 15:19 Freq: Status: Active Protocol: Document 08/10/21 13:45 DCW (Rec: 08/10/21 15:36 DCW [id number]) Knee Strength Knee Manual Muscle Testing Right Flexion (S2) 4+ Good+ Extension (L3) 4 Good Left Flexion (S2) 4 Good Extension (L3) 3- Fair- PT-OP-Q Treatments Start: 08/10/21 15:19 Freq: Status: Active Protocol: Document 08/17/21 13:45 DCW (Rec: 08/17/21 14:24 DCW [id number]) Cardio Equipment Recumbent Bicycle Duration (Minutes) 5 Resistance 0 Seat Position 4 Therapeutic Exercises Supine Exercises 5 Supine Exercise Name Hip Abduction/windshield wipers Side left 4 Supine Exercise Name Heel Slide Side left 3 Supine Exercise Name SLR Comments AAROM 1 Supine Exercise Name SAQ Side bilateral Sitting Exercises 2 Sitting Exercise Name Hamstring curl Side bilateral Resistance Lv 2 1 Sitting Exercise Name LAQ Side bilateral Manual Therapy Treatment Joint Mobilizations 1 Joint Tib-femoral Direction P->A Grade III Body Position Hooklying PT-OP-R Modalities Start: 08/10/21 15:19 Freq: Status: Active Protocol: Document 08/17/21 13:45 DCW (Rec: 08/17/21 14:24 DCW [id number]) Electric Stimulation Electric Stimulation Interferential Current (IFC) Body Location L knee Duration (Minutes) 15 Intensity 14 Cycle Continuous Patient Position Hooklying PT-OP-T Assessment and Plan Start: 08/10/21 15:19 Freq: Status: Active Protocol: Document 08/17/21 13:45 DCW (Rec: 08/17/21 14:24 DCW [id number]) Physical Therapy Assessment Impairments Impairments Activity Tolerance,Functional Activities,Functional Mobility ,Gait,Pain,ROM,Soft Tissue Mobility,Strength Goals Three Impairment Left knee AROM limited to 10?- 92? Nursing Home Goal (LTG) Pt to increase left knee AROM to 0?-120? to improve ability to perform transfers and ascend/descend stairs LTG Duration 10/10/21 Two Impairment Pt ambulates 368' during 6 MWT Finisher Screwdown Goal (LTG) A walking speed of less than 1 .87 ft/sec is indicative of further functional decline in older adults. Pt to increase distance of 6 MWT to at least 709' without an assistive device to demonstrate increased functional mobility and improved independence. LTG Duration 10/10/21 One Impairment Pt does not have an appropriate home exercise program Short Term Goal (STG) Pt to be independent and compliant with an appropriate HEP STG Duration 09/10/21 Assessment Summary Assessment back off a little today from last visit due to pt response, less TherEx today, pt complained of the ice pack feeling too heavy from Saturday, so no ice during stim today. Physical Therapy Plan Frequency and Duration Frequency of Treatment 2x/Week Duration of Treatment Two months Plan of Care Start Date 08/10/21 Plan of Care End Date 10/10/21 Therapeutic Interventions Therapeutic Interventions Aquatic Therapy,Balance Training,Gait Training,Home Exercise Program,Manual Therapy,Neuromuscular Re- education,Patient/Caregiver Education,Self-Care/Home Management,Soft Tissue Mobilization,Therapeutic Activities,Therapeutic Exercises Modalities Cold Pack/Ice Massage,Electric Stimulation,Hot Packs, Ultrasound Next Visit Focus/Plan Next Note Type Treatment Note Next Visit Plan ROM, strengthening, flexibility
--- NOTE | 2021-08-21 11:59 | PT.OTN ---
Current Diagnoses Unilateral primary osteoarthritis, right knee (08/21/21) Pain in left knee (08/21/21) Stiffness of left knee, not elsewhere classified (08/21/21) Other abnormalities of gait and mobility (08/21/21) Aftercare following joint replacement surgery (08/21/21) Physical Therapy Treatment Note PT-OP-A Visit Information Start: 08/10/21 15:19 Freq: Status: Active Protocol: Document 08/21/21 11:15 DCW (Rec: 08/21/21 11:59 DCW [id number]) Out-Patient Physical Therapy Visit Information Visit Information Visit Type Treatment Note Visit Start Time 11:15 Visit Stop Time 12:10 Total Visit Minutes 55 Visit Number 4 Number of MOTION STUDY ENGINEER Visits 0 Evaluation Information Evaluation Date 08/10/21 PT-OP-B Current Condition Start: 08/10/21 15:19 Freq: Status: Active Protocol: Document 08/10/21 13:45 DCW (Rec: 08/10/21 15:36 DCW [id number]) Current Condition History of Current Condition Onset Date 08/02/21 Current Complaints Left knee pain, stiffness, and weakness s/p TKA History of Current Condition Pt is a 75 year old female presenting eight days s/p L TKA. Pt went home following her surgery, but unfortunately experienced three falls, slurred speech, and confusion. Pt was admitted to the hospital 08/05/21-08/08/21 with concerns of a TBI/CVA. Pt eventually diagnosed with a GI bleed/gastric ulcers and a UTI. Pt feeling much better now, and was able to get some PT while in the hospital and was able to get up and move around more. Notes her knee hurts horribly. Pt ambulates with a FWW, notes she does have a 4WW, but doesn't like to use it, feels it is too easy for the walker to get away from me. Has been able to do some of her HEP, including heel slides, quad/ glute sets, adductor squeeze, SLR, SAQ, and ankle pumps. Treatment Goals Patient/Caregiver Goals My goal is to do my six weeks of rehab and be good enough to be done with it. PT-OP-C Subjective Start: 08/10/21 15:19 Freq: Status: Active Protocol: Document 08/21/21 11:15 DCW (Rec: 08/21/21 11:59 DCW [id number]) OP-PT Subjective Patient Comments Patient Comments I have just been extraordinarily tired. PT-OP-E Functional Tests Start: 08/10/21 15:19 Freq: Status: Active Protocol: Document 08/10/21 13:45 DCW (Rec: 08/10/21 15:36 DCW [id number]) Functional Tests 6 Minute Walk Test Distance 368' Device Used FWW Comments 1.02 ft/sec PT-OP-J Posture/Palpation/Skin Start: 08/10/21 15:19 Freq: Status: Active Protocol: Document 08/10/21 13:45 DCW (Rec: 08/10/21 15:36 DCW [id number]) Skin Assessment Incisional Assessment Incision Appearance/Comments Surgical incision covered in dressing, appears C, D, I PT-OP-K Range of Motion Start: 08/10/21 15:19 Freq: Status: Active Protocol: Document 08/10/21 13:45 DCW (Rec: 08/10/21 15:36 DCW [id number]) Knee Goniometric Range of Motion Knee Right Knee ROM WFL Yes Patient Position Supine Flexion Active (degrees) 0 Extension Active (degrees) 120 Left Knee ROM WFL No Patient Position Supine Flexion Active (degrees) 92 Flexion Passive (degrees) 94 Extension Active (degrees) 10 PT-OP-M Strength Start: 08/10/21 15:19 Freq: Status: Active Protocol: Document 08/10/21 13:45 DCW (Rec: 08/10/21 15:36 DCW [id number]) Knee Strength Knee Manual Muscle Testing Right Flexion (S2) 4+ Good+ Extension (L3) 4 Good Left Flexion (S2) 4 Good Extension (L3) 3- Fair- PT-OP-Q Treatments Start: 08/10/21 15:19 Freq: Status: Active Protocol: Document 08/21/21 11:15 DCW (Rec: 08/21/21 11:59 DCW [id number]) Cardio Equipment Recumbent Bicycle Duration (Minutes) 5 Resistance 0 Seat Position 4 Gym Equipment Shuttle Recovery Bilateral Squats Details Hold in flexion Resistance 37# Therapeutic Exercises Supine Exercises 5 Supine Exercise Name Hip Abduction/windshield wipers Side left 4 Supine Exercise Name Heel Slide Side left 3 Supine Exercise Name SLR Comments AAROM 1 Supine Exercise Name SAQ Side bilateral Sitting Exercises 2 Sitting Exercise Name Hamstring curl Side bilateral Resistance Lv 2 1 Sitting Exercise Name LAQ Side bilateral Standing Exercises 2 Standing Exercise Name Step flexion stretch Side left Manual Therapy Treatment Joint Mobilizations 1 Joint Tib-femoral Direction P->A Grade III Body Position Hooklying PT-OP-R Modalities Start: 08/10/21 15:19 Freq: Status: Active Protocol: Document 08/21/21 11:15 DCW (Rec: 08/21/21 11:59 DCW [id number]) Electric Stimulation Electric Stimulation Interferential Current (IFC) Body Location L knee Duration (Minutes) 15 Intensity 16 Cycle Continuous Patient Position Hooklying PT-OP-T Assessment and Plan Start: 08/10/21 15:19 Freq: Status: Active Protocol: Document 08/21/21 11:15 DCW (Rec: 08/21/21 11:59 DCW [id number]) Physical Therapy Assessment Impairments Impairments Activity Tolerance,Functional Activities,Functional Mobility ,Gait,Pain,ROM,Soft Tissue Mobility,Strength Goals Three Impairment Left knee AROM limited to 10?- 92? Internal Audit Manager Goal (LTG) Pt to increase left knee AROM to 0?-120? to improve ability to perform transfers and ascend/descend stairs LTG Duration 10/10/21 Two Impairment Pt ambulates 368' during 6 MWT Internal Audit Manager Goal (LTG) A walking speed of less than 1 .87 ft/sec is indicative of further functional decline in older adults. Pt to increase distance of 6 MWT to at least 709' without an assistive device to demonstrate increased functional mobility and improved independence. LTG Duration 10/10/21 One Impairment Pt does not have an appropriate home exercise program Short Term Goal (STG) Pt to be independent and compliant with an appropriate HEP STG Duration 09/10/21 Assessment Summary Assessment Pt still struggling with pain response and fatigue, unable to participate in more complex exercises during her session at this time. Is showing good progress with ROM, increasing flexion to 109? today. Physical Therapy Plan Frequency and Duration Frequency of Treatment 2x/Week Duration of Treatment Two months Plan of Care Start Date 08/10/21 Plan of Care End Date 10/10/21 Therapeutic Interventions Therapeutic Interventions Aquatic Therapy,Balance Training,Gait Training,Home Exercise Program,Manual Therapy,Neuromuscular Re- education,Patient/Caregiver Education,Self-Care/Home Management,Soft Tissue Mobilization,Therapeutic Activities,Therapeutic Exercises Modalities Cold Pack/Ice Massage,Electric Stimulation,Hot Packs, Ultrasound Next Visit Focus/Plan Next Note Type Treatment Note Next Visit Plan ROM, strengthening, flexibility
--- NOTE | 2021-08-24 11:12 | PT.OTN ---
Current Diagnoses Unilateral primary osteoarthritis, right knee (08/24/21) Pain in left knee (08/24/21) Stiffness of left knee, not elsewhere classified (08/24/21) Other abnormalities of gait and mobility (08/24/21) Aftercare following joint replacement surgery (08/24/21) Physical Therapy Treatment Note PT-OP-A Visit Information Start: 08/10/21 15:19 Freq: Status: Active Protocol: Document 08/24/21 10:30 DCW (Rec: 08/24/21 11:12 DCW [id number]) Out-Patient Physical Therapy Visit Information Visit Information Visit Type Treatment Note Visit Start Time 10:30 Visit Stop Time 11:25 Total Visit Minutes 55 Visit Number 5 Number of QA INTERNSHIP Visits 0 Evaluation Information Evaluation Date 08/10/21 PT-OP-B Current Condition Start: 08/10/21 15:19 Freq: Status: Active Protocol: Document 08/10/21 13:45 DCW (Rec: 08/10/21 15:36 DCW [id number]) Current Condition History of Current Condition Onset Date 08/02/21 Current Complaints Left knee pain, stiffness, and weakness s/p TKA History of Current Condition Pt is a 75 year old female presenting eight days s/p L TKA. Pt went home following her surgery, but unfortunately experienced three falls, slurred speech, and confusion. Pt was admitted to the hospital 08/05/21-08/08/21 with concerns of a TBI/CVA. Pt eventually diagnosed with a GI bleed/gastric ulcers and a UTI. Pt feeling much better now, and was able to get some PT while in the hospital and was able to get up and move around more. Notes her knee hurts horribly. Pt ambulates with a FWW, notes she does have a 4WW, but doesn't like to use it, feels it is too easy for the walker to get away from me. Has been able to do some of her HEP, including heel slides, quad/ glute sets, adductor squeeze, SLR, SAQ, and ankle pumps. Treatment Goals Patient/Caregiver Goals My goal is to do my six weeks of rehab and be good enough to be done with it. PT-OP-C Subjective Start: 08/10/21 15:19 Freq: Status: Active Protocol: Document 08/24/21 10:30 DCW (Rec: 08/24/21 11:12 DCW [id number]) OP-PT Subjective Patient Comments Patient Comments Well, I'm well rested, that's about all I can say. PT-OP-E Functional Tests Start: 08/10/21 15:19 Freq: Status: Active Protocol: Document 08/10/21 13:45 DCW (Rec: 08/10/21 15:36 DCW [id number]) Functional Tests 6 Minute Walk Test Distance 368' Device Used FWW Comments 1.02 ft/sec PT-OP-J Posture/Palpation/Skin Start: 08/10/21 15:19 Freq: Status: Active Protocol: Document 08/10/21 13:45 DCW (Rec: 08/10/21 15:36 DCW [id number]) Skin Assessment Incisional Assessment Incision Appearance/Comments Surgical incision covered in dressing, appears C, D, I PT-OP-K Range of Motion Start: 08/10/21 15:19 Freq: Status: Active Protocol: Document 08/10/21 13:45 DCW (Rec: 08/10/21 15:36 DCW [id number]) Knee Goniometric Range of Motion Knee Right Knee ROM WFL Yes Patient Position Supine Flexion Active (degrees) 0 Extension Active (degrees) 120 Left Knee ROM WFL No Patient Position Supine Flexion Active (degrees) 92 Flexion Passive (degrees) 94 Extension Active (degrees) 10 PT-OP-M Strength Start: 08/10/21 15:19 Freq: Status: Active Protocol: Document 08/10/21 13:45 DCW (Rec: 08/10/21 15:36 DCW [id number]) Knee Strength Knee Manual Muscle Testing Right Flexion (S2) 4+ Good+ Extension (L3) 4 Good Left Flexion (S2) 4 Good Extension (L3) 3- Fair- PT-OP-Q Treatments Start: 08/10/21 15:19 Freq: Status: Active Protocol: Document 08/24/21 10:30 DCW (Rec: 08/24/21 11:12 DCW [id number]) Cardio Equipment Recumbent Bicycle Duration (Minutes) 6 Resistance 0 Seat Position 4 Gym Equipment Shuttle Recovery Bilateral Squats Details Hold in flexion Resistance 50# Therapeutic Exercises Supine Exercises 4 Supine Exercise Name Heel Slide Side left 3 Supine Exercise Name SLR Comments AAROM Sitting Exercises 2 Sitting Exercise Name Hamstring curl Side bilateral Resistance Lv 2 1 Sitting Exercise Name LAQ Side bilateral Standing Exercises 2 Standing Exercise Name Step flexion stretch Side left 1 Standing Exercise Name TKE Side left Resistance Lv 1 T-band Manual Therapy Treatment Joint Mobilizations 1 Joint Tib-femoral Direction P->A Grade III Body Position Hooklying PT-OP-R Modalities Start: 08/10/21 15:19 Freq: Status: Active Protocol: Document 08/24/21 10:30 DCW (Rec: 08/24/21 11:12 DCW [id number]) Electric Stimulation Electric Stimulation Interferential Current (IFC) Body Location L knee Duration (Minutes) 15 Intensity 16 Cycle Continuous Patient Position Hooklying PT-OP-T Assessment and Plan Start: 08/10/21 15:19 Freq: Status: Active Protocol: Document 08/24/21 10:30 DCW (Rec: 08/24/21 11:12 DCW [id number]) Physical Therapy Assessment Impairments Impairments Activity Tolerance,Functional Activities,Functional Mobility ,Gait,Pain,ROM,Soft Tissue Mobility,Strength Goals Three Impairment Left knee AROM limited to 10?- 92? Fpc Goal (LTG) Pt to increase left knee AROM to 0?-120? to improve ability to perform transfers and ascend/descend stairs LTG Duration 10/10/21 Two Impairment Pt ambulates 368' during 6 MWT Fpc Goal (LTG) A walking speed of less than 1 .87 ft/sec is indicative of further functional decline in older adults. Pt to increase distance of 6 MWT to at least 709' without an assistive device to demonstrate increased functional mobility and improved independence. LTG Duration 10/10/21 One Impairment Pt does not have an appropriate home exercise program Short Term Goal (STG) Pt to be independent and compliant with an appropriate HEP STG Duration 09/10/21 Assessment Summary Assessment Pt ROM continues to do well, but still very lethargic and complains constantly of feeling cold. Pt wants to contact her PCP to discuss her H&H more, she feels there is still an issue. Physical Therapy Plan Frequency and Duration Frequency of Treatment 2x/Week Duration of Treatment Two months Plan of Care Start Date 08/10/21 Plan of Care End Date 10/10/21 Therapeutic Interventions Therapeutic Interventions Aquatic Therapy,Balance Training,Gait Training,Home Exercise Program,Manual Therapy,Neuromuscular Re- education,Patient/Caregiver Education,Self-Care/Home Management,Soft Tissue Mobilization,Therapeutic Activities,Therapeutic Exercises Modalities Cold Pack/Ice Massage,Electric Stimulation,Hot Packs, Ultrasound Next Visit Focus/Plan Next Note Type Treatment Note Next Visit Plan ROM, strengthening, flexibility
--- NOTE | 2021-08-28 11:18 | PT.OTN ---
Current Diagnoses Unilateral primary osteoarthritis, right knee (08/28/21) Pain in left knee (08/28/21) Stiffness of left knee, not elsewhere classified (08/28/21) Other abnormalities of gait and mobility (08/28/21) Aftercare following joint replacement surgery (08/28/21) Physical Therapy Treatment Note PT-OP-A Visit Information Start: 08/10/21 15:19 Freq: Status: Active Protocol: Document 08/28/21 10:30 DCW (Rec: 08/28/21 11:18 DCW [id number]) Out-Patient Physical Therapy Visit Information Visit Information Visit Type Treatment Note Visit Start Time 10:30 Visit Stop Time 11:25 Total Visit Minutes 55 Visit Number 6 Number of SUPERVISOR CELL EFFICIENCY Visits 0 Evaluation Information Evaluation Date 08/10/21 PT-OP-B Current Condition Start: 08/10/21 15:19 Freq: Status: Active Protocol: Document 08/10/21 13:45 DCW (Rec: 08/10/21 15:36 DCW [id number]) Current Condition History of Current Condition Onset Date 08/02/21 Current Complaints Left knee pain, stiffness, and weakness s/p TKA History of Current Condition Pt is a 75 year old female presenting eight days s/p L TKA. Pt went home following her surgery, but unfortunately experienced three falls, slurred speech, and confusion. Pt was admitted to the hospital 08/05/21-08/08/21 with concerns of a TBI/CVA. Pt eventually diagnosed with a GI bleed/gastric ulcers and a UTI. Pt feeling much better now, and was able to get some PT while in the hospital and was able to get up and move around more. Notes her knee hurts horribly. Pt ambulates with a FWW, notes she does have a 4WW, but doesn't like to use it, feels it is too easy for the walker to get away from me. Has been able to do some of her HEP, including heel slides, quad/ glute sets, adductor squeeze, SLR, SAQ, and ankle pumps. Treatment Goals Patient/Caregiver Goals My goal is to do my six weeks of rehab and be good enough to be done with it. PT-OP-C Subjective Start: 08/10/21 15:19 Freq: Status: Active Protocol: Document 08/28/21 10:30 DCW (Rec: 08/28/21 11:18 DCW [id number]) OP-PT Subjective Patient Comments Patient Comments I keep waiting to get a little more spring in my step. PT-OP-E Functional Tests Start: 08/10/21 15:19 Freq: Status: Active Protocol: Document 08/10/21 13:45 DCW (Rec: 08/10/21 15:36 DCW [id number]) Functional Tests 6 Minute Walk Test Distance 368' Device Used FWW Comments 1.02 ft/sec PT-OP-J Posture/Palpation/Skin Start: 08/10/21 15:19 Freq: Status: Active Protocol: Document 08/10/21 13:45 DCW (Rec: 08/10/21 15:36 DCW [id number]) Skin Assessment Incisional Assessment Incision Appearance/Comments Surgical incision covered in dressing, appears C, D, I PT-OP-K Range of Motion Start: 08/10/21 15:19 Freq: Status: Active Protocol: Document 08/10/21 13:45 DCW (Rec: 08/10/21 15:36 DCW [id number]) Knee Goniometric Range of Motion Knee Right Knee ROM WFL Yes Patient Position Supine Flexion Active (degrees) 0 Extension Active (degrees) 120 Left Knee ROM WFL No Patient Position Supine Flexion Active (degrees) 92 Flexion Passive (degrees) 94 Extension Active (degrees) 10 PT-OP-M Strength Start: 08/10/21 15:19 Freq: Status: Active Protocol: Document 08/10/21 13:45 DCW (Rec: 08/10/21 15:36 DCW [id number]) Knee Strength Knee Manual Muscle Testing Right Flexion (S2) 4+ Good+ Extension (L3) 4 Good Left Flexion (S2) 4 Good Extension (L3) 3- Fair- PT-OP-Q Treatments Start: 08/10/21 15:19 Freq: Status: Active Protocol: Document 08/28/21 10:30 DCW (Rec: 08/28/21 11:18 DCW [id number]) Cardio Equipment Recumbent Bicycle Duration (Minutes) 6 Resistance 1 Seat Position 5 Other full rotations Gym Equipment Shuttle Recovery Bilateral Squats Details Hold in flexion Resistance 50# Reps/Time x16 Therapeutic Exercises Supine Exercises 3 Supine Exercise Name SLR Comments AAROM 2 Supine Exercise Name Knee extension stretch Side left Reps/Minutes 2' Sitting Exercises 2 Sitting Exercise Name Hamstring curl Side bilateral Resistance Lv 2 1 Sitting Exercise Name LAQ Side bilateral Resistance 2# Gait Training Gait Activity 1 Description cane gait training Device Used Quad cane Level of Assistance CGA Distance/Duration 170' Manual Therapy Treatment Joint Mobilizations 1 Joint Tib-femoral Direction P->A Grade III Body Position Hooklying PT-OP-R Modalities Start: 08/10/21 15:19 Freq: Status: Active Protocol: Document 08/28/21 10:30 DCW (Rec: 08/28/21 11:18 DCW [id number]) Electric Stimulation Electric Stimulation Interferential Current (IFC) Body Location L knee Duration (Minutes) 15 Intensity 17 Cycle Continuous Patient Position Hooklying PT-OP-T Assessment and Plan Start: 08/10/21 15:19 Freq: Status: Active Protocol: Document 08/28/21 10:30 DCW (Rec: 08/28/21 11:18 DCW [id number]) Physical Therapy Assessment Impairments Impairments Activity Tolerance,Functional Activities,Functional Mobility ,Gait,Pain,ROM,Soft Tissue Mobility,Strength Goals Three Impairment Left knee AROM limited to 10?- 92? Alf Goal (LTG) Pt to increase left knee AROM to 0?-120? to improve ability to perform transfers and ascend/descend stairs LTG Duration 10/10/21 Two Impairment Pt ambulates 368' during 6 MWT Alf Goal (LTG) A walking speed of less than 1 .87 ft/sec is indicative of further functional decline in older adults. Pt to increase distance of 6 MWT to at least 709' without an assistive device to demonstrate increased functional mobility and improved independence. LTG Duration 10/10/21 One Impairment Pt does not have an appropriate home exercise program Short Term Goal (STG) Pt to be independent and compliant with an appropriate HEP STG Duration 09/10/21 Assessment Summary Assessment Pt still fairly limited with activity participation due to fatigue, but ROM continues to improve. Pt did well today with full rotations on recumbent bike. Physical Therapy Plan Frequency and Duration Frequency of Treatment 2x/Week Duration of Treatment Two months Plan of Care Start Date 08/10/21 Plan of Care End Date 10/10/21 Therapeutic Interventions Therapeutic Interventions Aquatic Therapy,Balance Training,Gait Training,Home Exercise Program,Manual Therapy,Neuromuscular Re- education,Patient/Caregiver Education,Self-Care/Home Management,Soft Tissue Mobilization,Therapeutic Activities,Therapeutic Exercises Modalities Cold Pack/Ice Massage,Electric Stimulation,Hot Packs, Ultrasound Next Visit Focus/Plan Next Note Type Treatment Note Next Visit Plan ROM, strengthening, flexibility
--- NOTE | 2021-08-31 11:21 | PT.OTN ---
Current Diagnoses Unilateral primary osteoarthritis, right knee (08/31/21) Pain in left knee (08/31/21) Stiffness of left knee, not elsewhere classified (08/31/21) Other abnormalities of gait and mobility (08/31/21) Aftercare following joint replacement surgery (08/31/21) Physical Therapy Treatment Note PT-OP-A Visit Information Start: 08/10/21 15:19 Freq: Status: Active Protocol: Document 08/31/21 10:30 DCW (Rec: 08/31/21 11:21 DCW [id number]) Out-Patient Physical Therapy Visit Information Visit Information Visit Type Treatment Note Visit Start Time 10:30 Visit Stop Time 11:15 Total Visit Minutes 45 Visit Number 7 Number of INSPECTOR TUBES Visits 0 Evaluation Information Evaluation Date 08/10/21 PT-OP-B Current Condition Start: 08/10/21 15:19 Freq: Status: Active Protocol: Document 08/10/21 13:45 DCW (Rec: 08/10/21 15:36 DCW [id number]) Current Condition History of Current Condition Onset Date 08/02/21 Current Complaints Left knee pain, stiffness, and weakness s/p TKA History of Current Condition Pt is a 75 year old female presenting eight days s/p L TKA. Pt went home following her surgery, but unfortunately experienced three falls, slurred speech, and confusion. Pt was admitted to the hospital 08/05/21-08/08/21 with concerns of a TBI/CVA. Pt eventually diagnosed with a GI bleed/gastric ulcers and a UTI. Pt feeling much better now, and was able to get some PT while in the hospital and was able to get up and move around more. Notes her knee hurts horribly. Pt ambulates with a FWW, notes she does have a 4WW, but doesn't like to use it, feels it is too easy for the walker to get away from me. Has been able to do some of her HEP, including heel slides, quad/ glute sets, adductor squeeze, SLR, SAQ, and ankle pumps. Treatment Goals Patient/Caregiver Goals My goal is to do my six weeks of rehab and be good enough to be done with it. PT-OP-C Subjective Start: 08/10/21 15:19 Freq: Status: Active Protocol: Document 08/31/21 10:30 DCW (Rec: 08/31/21 11:21 DCW [id number]) OP-PT Subjective Patient Comments Patient Comments I'm using my walker less around my house. PT-OP-E Functional Tests Start: 08/10/21 15:19 Freq: Status: Active Protocol: Document 08/10/21 13:45 DCW (Rec: 08/10/21 15:36 DCW [id number]) Functional Tests 6 Minute Walk Test Distance 368' Device Used FWW Comments 1.02 ft/sec PT-OP-J Posture/Palpation/Skin Start: 08/10/21 15:19 Freq: Status: Active Protocol: Document 08/10/21 13:45 DCW (Rec: 08/10/21 15:36 DCW [id number]) Skin Assessment Incisional Assessment Incision Appearance/Comments Surgical incision covered in dressing, appears C, D, I PT-OP-K Range of Motion Start: 08/10/21 15:19 Freq: Status: Active Protocol: Document 08/10/21 13:45 DCW (Rec: 08/10/21 15:36 DCW [id number]) Knee Goniometric Range of Motion Knee Right Knee ROM WFL Yes Patient Position Supine Flexion Active (degrees) 0 Extension Active (degrees) 120 Left Knee ROM WFL No Patient Position Supine Flexion Active (degrees) 92 Flexion Passive (degrees) 94 Extension Active (degrees) 10 PT-OP-M Strength Start: 08/10/21 15:19 Freq: Status: Active Protocol: Document 08/10/21 13:45 DCW (Rec: 08/10/21 15:36 DCW [id number]) Knee Strength Knee Manual Muscle Testing Right Flexion (S2) 4+ Good+ Extension (L3) 4 Good Left Flexion (S2) 4 Good Extension (L3) 3- Fair- PT-OP-Q Treatments Start: 08/10/21 15:19 Freq: Status: Active Protocol: Document 08/31/21 10:30 DCW (Rec: 08/31/21 11:21 DCW [id number]) Cardio Equipment Recumbent Bicycle Duration (Minutes) 6 Resistance 1 Seat Position 4 Other full rotations Gym Equipment Shuttle Recovery Bilateral Squats Details Hold in flexion Resistance 62# Reps/Time x11 Therapeutic Ball 1 Exercise Details Knee flexion /c strap pull Ball Size/Color Blue - 45 cm Body Position Supine Therapeutic Exercises Sitting Exercises 2 Sitting Exercise Name Hamstring curl Side bilateral Resistance Lv 3 1 Sitting Exercise Name LAQ Side bilateral Resistance 5# Manual Therapy Treatment Soft Tissue Mobilization 1 Body Location Scar mobs Mobilization Type Cross-Friction Intensity/Depth Moderate Body Position Hooklying Joint Mobilizations 1 Joint Tib-femoral Direction P->A Grade III Body Position Hooklying PT-OP-R Modalities Start: 08/10/21 15:19 Freq: Status: Active Protocol: Document 08/28/21 10:30 DCW (Rec: 08/28/21 11:18 DCW [id number]) Electric Stimulation Electric Stimulation Interferential Current (IFC) Body Location L knee Duration (Minutes) 15 Intensity 17 Cycle Continuous Patient Position Hooklying PT-OP-T Assessment and Plan Start: 08/10/21 15:19 Freq: Status: Active Protocol: Document 08/31/21 10:30 DCW (Rec: 08/31/21 11:21 DCW [id number]) Physical Therapy Assessment Impairments Impairments Activity Tolerance,Functional Activities,Functional Mobility ,Gait,Pain,ROM,Soft Tissue Mobility,Strength Goals Three Impairment Left knee AROM limited to 10?- 92? Campaign Manager Goal (LTG) Pt to increase left knee AROM to 0?-120? to improve ability to perform transfers and ascend/descend stairs LTG Duration 10/10/21 Two Impairment Pt ambulates 368' during 6 MWT Senior Care Goal (LTG) A walking speed of less than 1 .87 ft/sec is indicative of further functional decline in older adults. Pt to increase distance of 6 MWT to at least 709' without an assistive device to demonstrate increased functional mobility and improved independence. LTG Duration 10/10/21 One Impairment Pt does not have an appropriate home exercise program Short Term Goal (STG) Pt to be independent and compliant with an appropriate HEP STG Duration 09/10/21 Assessment Summary Assessment Pt much more energetic today, appears to be recovering from her medical issues, will likely benefit from starting to switch focus more to strengthening and ambulation. Physical Therapy Plan Frequency and Duration Frequency of Treatment 2x/Week Duration of Treatment Two months Plan of Care Start Date 08/10/21 Plan of Care End Date 10/10/21 Therapeutic Interventions Therapeutic Interventions Aquatic Therapy,Balance Training,Gait Training,Home Exercise Program,Manual Therapy,Neuromuscular Re- education,Patient/Caregiver Education,Self-Care/Home Management,Soft Tissue Mobilization,Therapeutic Activities,Therapeutic Exercises Modalities Cold Pack/Ice Massage,Electric Stimulation,Hot Packs, Ultrasound Next Visit Focus/Plan Next Note Type Treatment Note Next Visit Plan ROM, strengthening, flexibility
--- NOTE | 2021-09-04 11:13 | PT.OTN ---
Current Diagnoses Unilateral primary osteoarthritis, right knee (09/04/21) Pain in left knee (09/04/21) Stiffness of left knee, not elsewhere classified (09/04/21) Other abnormalities of gait and mobility (09/04/21) Aftercare following joint replacement surgery (09/04/21) Physical Therapy Treatment Note PT-OP-A Visit Information Start: 08/10/21 15:19 Freq: Status: Active Protocol: Document 09/04/21 10:30 DCW (Rec: 09/04/21 11:13 DCW [id number]) Out-Patient Physical Therapy Visit Information Visit Information Visit Type Treatment Note Visit Start Time 10:30 Visit Stop Time 11:15 Total Visit Minutes 45 Visit Number 8 Number of PUBLIC SAFETY POLICE Visits 0 Evaluation Information Evaluation Date 08/10/21 PT-OP-B Current Condition Start: 08/10/21 15:19 Freq: Status: Active Protocol: Document 08/10/21 13:45 DCW (Rec: 08/10/21 15:36 DCW [id number]) Current Condition History of Current Condition Onset Date 08/02/21 Current Complaints Left knee pain, stiffness, and weakness s/p TKA History of Current Condition Pt is a 75 year old female presenting eight days s/p L TKA. Pt went home following her surgery, but unfortunately experienced three falls, slurred speech, and confusion. Pt was admitted to the hospital 08/05/21-08/08/21 with concerns of a TBI/CVA. Pt eventually diagnosed with a GI bleed/gastric ulcers and a UTI. Pt feeling much better now, and was able to get some PT while in the hospital and was able to get up and move around more. Notes her knee hurts horribly. Pt ambulates with a FWW, notes she does have a 4WW, but doesn't like to use it, feels it is too easy for the walker to get away from me. Has been able to do some of her HEP, including heel slides, quad/ glute sets, adductor squeeze, SLR, SAQ, and ankle pumps. Treatment Goals Patient/Caregiver Goals My goal is to do my six weeks of rehab and be good enough to be done with it. PT-OP-C Subjective Start: 08/10/21 15:19 Freq: Status: Active Protocol: Document 09/04/21 10:30 DCW (Rec: 09/04/21 11:13 DCW [id number]) OP-PT Subjective Patient Comments Patient Comments I feel like I've turned a corner. I've had 5 good days in a row. PT-OP-E Functional Tests Start: 08/10/21 15:19 Freq: Status: Active Protocol: Document 08/10/21 13:45 DCW (Rec: 08/10/21 15:36 DCW [id number]) Functional Tests 6 Minute Walk Test Distance 368' Device Used FWW Comments 1.02 ft/sec PT-OP-J Posture/Palpation/Skin Start: 08/10/21 15:19 Freq: Status: Active Protocol: Document 08/10/21 13:45 DCW (Rec: 08/10/21 15:36 DCW [id number]) Skin Assessment Incisional Assessment Incision Appearance/Comments Surgical incision covered in dressing, appears C, D, I PT-OP-K Range of Motion Start: 08/10/21 15:19 Freq: Status: Active Protocol: Document 08/10/21 13:45 DCW (Rec: 08/10/21 15:36 DCW [id number]) Knee Goniometric Range of Motion Knee Right Knee ROM WFL Yes Patient Position Supine Flexion Active (degrees) 0 Extension Active (degrees) 120 Left Knee ROM WFL No Patient Position Supine Flexion Active (degrees) 92 Flexion Passive (degrees) 94 Extension Active (degrees) 10 PT-OP-M Strength Start: 08/10/21 15:19 Freq: Status: Active Protocol: Document 08/10/21 13:45 DCW (Rec: 08/10/21 15:36 DCW [id number]) Knee Strength Knee Manual Muscle Testing Right Flexion (S2) 4+ Good+ Extension (L3) 4 Good Left Flexion (S2) 4 Good Extension (L3) 3- Fair- PT-OP-Q Treatments Start: 08/10/21 15:19 Freq: Status: Active Protocol: Document 09/04/21 10:30 DCW (Rec: 09/04/21 11:13 DCW [id number]) Cardio Equipment Recumbent Bicycle Duration (Minutes) 6 Resistance 1 Seat Position 4 Other full rotations Therapeutic Exercises Supine Exercises 3 Supine Exercise Name SLR Side bilateral Resistance 5# Comments x10 Sitting Exercises 2 Sitting Exercise Name Hamstring curl Side bilateral Resistance Lv 3 1 Sitting Exercise Name LAQ Side bilateral Resistance 5# Standing Exercises 3 Standing Exercise Name Step-up Side left Equipment Used 6 step 1 Standing Exercise Name isometric TKE Side left Resistance Ball on wall Gait Training Gait Activity 2 Description Stairs Device Used B rail Level of Assistance SBA Comments 6 steps Manual Therapy Treatment Joint Mobilizations 1 Joint Tib-femoral Direction P->A Grade III Body Position Hooklying PT-OP-R Modalities Start: 08/10/21 15:19 Freq: Status: Active Protocol: Document 08/28/21 10:30 DCW (Rec: 08/28/21 11:18 DCW [id number]) Electric Stimulation Electric Stimulation Interferential Current (IFC) Body Location L knee Duration (Minutes) 15 Intensity 17 Cycle Continuous Patient Position Hooklying PT-OP-T Assessment and Plan Start: 08/10/21 15:19 Freq: Status: Active Protocol: Document 09/04/21 10:30 DCW (Rec: 09/04/21 11:13 DCW [id number]) Physical Therapy Assessment Impairments Impairments Activity Tolerance,Functional Activities,Functional Mobility ,Gait,Pain,ROM,Soft Tissue Mobility,Strength Goals Three Impairment Left knee AROM limited to 10?- 92? Penitentiary Goal (LTG) Pt to increase left knee AROM to 0?-120? to improve ability to perform transfers and ascend/descend stairs LTG Duration 10/10/21 Two Impairment Pt ambulates 368' during 6 MWT Penitentiary Goal (LTG) A walking speed of less than 1 .87 ft/sec is indicative of further functional decline in older adults. Pt to increase distance of 6 MWT to at least 709' without an assistive device to demonstrate increased functional mobility and improved independence. LTG Duration 10/10/21 One Impairment Pt does not have an appropriate home exercise program Short Term Goal (STG) Pt to be independent and compliant with an appropriate HEP STG Duration 09/10/21 Assessment Summary Assessment Pt did well today, switched more to a focus on strengthening today, good quad activation, still displays a mild extension lag with weighted SLR. Physical Therapy Plan Frequency and Duration Frequency of Treatment 2x/Week Duration of Treatment Two months Plan of Care Start Date 08/10/21 Plan of Care End Date 10/10/21 Therapeutic Interventions Therapeutic Interventions Aquatic Therapy,Balance Training,Gait Training,Home Exercise Program,Manual Therapy,Neuromuscular Re- education,Patient/Caregiver Education,Self-Care/Home Management,Soft Tissue Mobilization,Therapeutic Activities,Therapeutic Exercises Modalities Cold Pack/Ice Massage,Electric Stimulation,Hot Packs, Ultrasound Next Visit Focus/Plan Next Note Type Treatment Note Next Visit Plan ROM, strengthening, flexibility
--- NOTE | 2021-09-07 11:12 | PT.OTN ---
Current Diagnoses Unilateral primary osteoarthritis, right knee (09/07/21) Pain in left knee (09/07/21) Stiffness of left knee, not elsewhere classified (09/07/21) Other abnormalities of gait and mobility (09/07/21) Aftercare following joint replacement surgery (09/07/21) Physical Therapy Treatment Note PT-OP-A Visit Information Start: 08/10/21 15:19 Freq: Status: Active Protocol: Document 09/07/21 10:30 DCW (Rec: 09/07/21 11:12 DCW [id number]) Out-Patient Physical Therapy Visit Information Visit Information Visit Type Treatment Note Visit Start Time 10:30 Visit Stop Time 11:15 Total Visit Minutes 45 Visit Number 9 Number of TUBE ROLLER Visits 0 Evaluation Information Evaluation Date 08/10/21 PT-OP-B Current Condition Start: 08/10/21 15:19 Freq: Status: Active Protocol: Document 08/10/21 13:45 DCW (Rec: 08/10/21 15:36 DCW [id number]) Current Condition History of Current Condition Onset Date 08/02/21 Current Complaints Left knee pain, stiffness, and weakness s/p TKA History of Current Condition Pt is a 75 year old female presenting eight days s/p L TKA. Pt went home following her surgery, but unfortunately experienced three falls, slurred speech, and confusion. Pt was admitted to the hospital 08/05/21-08/08/21 with concerns of a TBI/CVA. Pt eventually diagnosed with a GI bleed/gastric ulcers and a UTI. Pt feeling much better now, and was able to get some PT while in the hospital and was able to get up and move around more. Notes her knee hurts horribly. Pt ambulates with a FWW, notes she does have a 4WW, but doesn't like to use it, feels it is too easy for the walker to get away from me. Has been able to do some of her HEP, including heel slides, quad/ glute sets, adductor squeeze, SLR, SAQ, and ankle pumps. Treatment Goals Patient/Caregiver Goals My goal is to do my six weeks of rehab and be good enough to be done with it. PT-OP-C Subjective Start: 08/10/21 15:19 Freq: Status: Active Protocol: Document 09/07/21 10:30 DCW (Rec: 09/07/21 11:12 DCW [id number]) OP-PT Subjective Patient Comments Patient Comments I have now made it through one week of feeling like myself. PT-OP-E Functional Tests Start: 08/10/21 15:19 Freq: Status: Active Protocol: Document 08/10/21 13:45 DCW (Rec: 08/10/21 15:36 DCW [id number]) Functional Tests 6 Minute Walk Test Distance 368' Device Used FWW Comments 1.02 ft/sec PT-OP-J Posture/Palpation/Skin Start: 08/10/21 15:19 Freq: Status: Active Protocol: Document 08/10/21 13:45 DCW (Rec: 08/10/21 15:36 DCW [id number]) Skin Assessment Incisional Assessment Incision Appearance/Comments Surgical incision covered in dressing, appears C, D, I PT-OP-K Range of Motion Start: 08/10/21 15:19 Freq: Status: Active Protocol: Document 08/10/21 13:45 DCW (Rec: 08/10/21 15:36 DCW [id number]) Knee Goniometric Range of Motion Knee Right Knee ROM WFL Yes Patient Position Supine Flexion Active (degrees) 0 Extension Active (degrees) 120 Left Knee ROM WFL No Patient Position Supine Flexion Active (degrees) 92 Flexion Passive (degrees) 94 Extension Active (degrees) 10 PT-OP-M Strength Start: 08/10/21 15:19 Freq: Status: Active Protocol: Document 08/10/21 13:45 DCW (Rec: 08/10/21 15:36 DCW [id number]) Knee Strength Knee Manual Muscle Testing Right Flexion (S2) 4+ Good+ Extension (L3) 4 Good Left Flexion (S2) 4 Good Extension (L3) 3- Fair- PT-OP-Q Treatments Start: 08/10/21 15:19 Freq: Status: Active Protocol: Document 09/07/21 10:30 DCW (Rec: 09/07/21 11:12 DCW [id number]) Cardio Equipment Recumbent Bicycle Duration (Minutes) 6 Resistance 4 Seat Position 4 Gym Equipment Shuttle Recovery Bilateral Squats Details Hold in flexion Resistance 75# Therapeutic Exercises Supine Exercises 3 Supine Exercise Name SLR Side bilateral Resistance 5# Comments x10 Sitting Exercises 2 Sitting Exercise Name Hamstring curl Side bilateral Resistance Lv 3 1 Sitting Exercise Name LAQ Side bilateral Resistance 5# Standing Exercises 3 Standing Exercise Name Step-up Side left Equipment Used 6 step 1 Standing Exercise Name isometric TKE Side left Resistance Ball on wall Gait Training Gait Activity 2 Description Stairs Device Used B rail Level of Assistance SBA Comments 6 steps 1 Description cane gait training Device Used SPC Level of Assistance CGA Distance/Duration 170' Manual Therapy Treatment Joint Mobilizations 1 Joint Tib-femoral Direction P->A Grade III Body Position Hooklying PT-OP-R Modalities Start: 08/10/21 15:19 Freq: Status: Active Protocol: Document 08/28/21 10:30 DCW (Rec: 08/28/21 11:18 DCW [id number]) Electric Stimulation Electric Stimulation Interferential Current (IFC) Body Location L knee Duration (Minutes) 15 Intensity 17 Cycle Continuous Patient Position Hooklying PT-OP-T Assessment and Plan Start: 08/10/21 15:19 Freq: Status: Active Protocol: Document 09/07/21 10:30 DCW (Rec: 09/07/21 11:12 DCW [id number]) Physical Therapy Assessment Impairments Impairments Activity Tolerance,Functional Activities,Functional Mobility ,Gait,Pain,ROM,Soft Tissue Mobility,Strength Goals Three Impairment Left knee AROM limited to 10?- 92? Usp Goal (LTG) Pt to increase left knee AROM to 0?-120? to improve ability to perform transfers and ascend/descend stairs LTG Duration 10/10/21 Two Impairment Pt ambulates 368' during 6 MWT Food Clerk Goal (LTG) A walking speed of less than 1 .87 ft/sec is indicative of further functional decline in older adults. Pt to increase distance of 6 MWT to at least 709' without an assistive device to demonstrate increased functional mobility and improved independence. LTG Duration 10/10/21 One Impairment Pt does not have an appropriate home exercise program Short Term Goal (STG) Pt to be independent and compliant with an appropriate HEP STG Duration 09/10/21 Assessment Summary Assessment Pt continues to progress well now that she is feeling better medically, good strength, gait is improving, able to use SPC with no antalgia and minimal UE support, just mainly for stability. Physical Therapy Plan Frequency and Duration Frequency of Treatment 2x/Week Duration of Treatment Two months Plan of Care Start Date 08/10/21 Plan of Care End Date 10/10/21 Therapeutic Interventions Therapeutic Interventions Aquatic Therapy,Balance Training,Gait Training,Home Exercise Program,Manual Therapy,Neuromuscular Re- education,Patient/Caregiver Education,Self-Care/Home Management,Soft Tissue Mobilization,Therapeutic Activities,Therapeutic Exercises Modalities Cold Pack/Ice Massage,Electric Stimulation,Hot Packs, Ultrasound Next Visit Focus/Plan Next Note Type Treatment Note Next Visit Plan ROM, strengthening, flexibility
--- NOTE | 2021-09-11 11:13 | PT.OTN ---
Current Diagnoses Unilateral primary osteoarthritis, right knee (09/11/21) Pain in left knee (09/11/21) Stiffness of left knee, not elsewhere classified (09/11/21) Other abnormalities of gait and mobility (09/11/21) Aftercare following joint replacement surgery (09/11/21) Physical Therapy Treatment Note PT-OP-A Visit Information Start: 08/10/21 15:19 Freq: Status: Active Protocol: Document 09/11/21 10:30 DCW (Rec: 09/11/21 11:13 DCW [id number]) Out-Patient Physical Therapy Visit Information Visit Information Visit Type Treatment Note Visit Start Time 10:30 Visit Stop Time 11:20 Total Visit Minutes 50 Visit Number 10 Number of SOLAR PANEL INSTALLER Visits 0 Evaluation Information Evaluation Date 08/10/21 PT-OP-B Current Condition Start: 08/10/21 15:19 Freq: Status: Active Protocol: Document 08/10/21 13:45 DCW (Rec: 08/10/21 15:36 DCW [id number]) Current Condition History of Current Condition Onset Date 08/02/21 Current Complaints Left knee pain, stiffness, and weakness s/p TKA History of Current Condition Pt is a 75 year old female presenting eight days s/p L TKA. Pt went home following her surgery, but unfortunately experienced three falls, slurred speech, and confusion. Pt was admitted to the hospital 08/05/21-08/08/21 with concerns of a TBI/CVA. Pt eventually diagnosed with a GI bleed/gastric ulcers and a UTI. Pt feeling much better now, and was able to get some PT while in the hospital and was able to get up and move around more. Notes her knee hurts horribly. Pt ambulates with a FWW, notes she does have a 4WW, but doesn't like to use it, feels it is too easy for the walker to get away from me. Has been able to do some of her HEP, including heel slides, quad/ glute sets, adductor squeeze, SLR, SAQ, and ankle pumps. Treatment Goals Patient/Caregiver Goals My goal is to do my six weeks of rehab and be good enough to be done with it. PT-OP-C Subjective Start: 08/10/21 15:19 Freq: Status: Active Protocol: Document 09/11/21 10:30 DCW (Rec: 09/11/21 11:13 DCW [id number]) OP-PT Subjective Patient Comments Patient Comments I was feeling so good, and then I did something stupid. I knelt on my knee when getting into bed last night, and it really hurt. So I'm pretty sore today. PT-OP-E Functional Tests Start: 08/10/21 15:19 Freq: Status: Active Protocol: Document 08/10/21 13:45 DCW (Rec: 08/10/21 15:36 DCW [id number]) Functional Tests 6 Minute Walk Test Distance 368' Device Used FWW Comments 1.02 ft/sec PT-OP-J Posture/Palpation/Skin Start: 08/10/21 15:19 Freq: Status: Active Protocol: Document 08/10/21 13:45 DCW (Rec: 08/10/21 15:36 DCW [id number]) Skin Assessment Incisional Assessment Incision Appearance/Comments Surgical incision covered in dressing, appears C, D, I PT-OP-K Range of Motion Start: 08/10/21 15:19 Freq: Status: Active Protocol: Document 08/10/21 13:45 DCW (Rec: 08/10/21 15:36 DCW [id number]) Knee Goniometric Range of Motion Knee Right Knee ROM WFL Yes Patient Position Supine Flexion Active (degrees) 0 Extension Active (degrees) 120 Left Knee ROM WFL No Patient Position Supine Flexion Active (degrees) 92 Flexion Passive (degrees) 94 Extension Active (degrees) 10 PT-OP-M Strength Start: 08/10/21 15:19 Freq: Status: Active Protocol: Document 08/10/21 13:45 DCW (Rec: 08/10/21 15:36 DCW [id number]) Knee Strength Knee Manual Muscle Testing Right Flexion (S2) 4+ Good+ Extension (L3) 4 Good Left Flexion (S2) 4 Good Extension (L3) 3- Fair- PT-OP-Q Treatments Start: 08/10/21 15:19 Freq: Status: Active Protocol: Document 09/11/21 10:30 DCW (Rec: 09/11/21 11:13 DCW [id number]) Cardio Equipment Recumbent Bicycle Duration (Minutes) 6 Resistance 4 Seat Position 4 Gym Equipment Shuttle Recovery Bilateral Squats Details Hold in flexion Resistance 75# Therapeutic Exercises Supine Exercises 3 Supine Exercise Name SLR Side bilateral Resistance 5# Comments x10 Sitting Exercises 2 Sitting Exercise Name Hamstring curl Side bilateral Resistance Lv 3 1 Sitting Exercise Name LAQ Side bilateral Resistance 5# Gait Training Gait Activity 1 Description cane gait training Device Used SPC Level of Assistance CGA Distance/Duration 340' Comments Used personal SPC, checked for sizing and stability. PT-OP-R Modalities Start: 08/10/21 15:19 Freq: Status: Active Protocol: Document 09/11/21 10:30 DCW (Rec: 09/11/21 11:13 DCW [id number]) Electric Stimulation Electric Stimulation Interferential Current (IFC) Body Location L knee Duration (Minutes) 10 Intensity 16 Cycle Continuous Patient Position Hooklying PT-OP-T Assessment and Plan Start: 08/10/21 15:19 Freq: Status: Active Protocol: Document 09/11/21 10:30 DCW (Rec: 09/11/21 11:13 DCW [id number]) Physical Therapy Assessment Impairments Impairments Activity Tolerance,Functional Activities,Functional Mobility ,Gait,Pain,ROM,Soft Tissue Mobility,Strength Goals Three Impairment Left knee AROM limited to 10?- 92? Fci Goal (LTG) Pt to increase left knee AROM to 0?-120? to improve ability to perform transfers and ascend/descend stairs LTG Duration 10/10/21 Two Impairment Pt ambulates 368' during 6 MWT Fci Goal (LTG) A walking speed of less than 1 .87 ft/sec is indicative of further functional decline in older adults. Pt to increase distance of 6 MWT to at least 709' without an assistive device to demonstrate increased functional mobility and improved independence. LTG Duration 10/10/21 One Impairment Pt does not have an appropriate home exercise program Short Term Goal (STG) Pt to be independent and compliant with an appropriate HEP STG Duration 09/10/21 Assessment Summary Assessment Pt progressing ROM and gait speed, decreased reliance on 4WW, beginning to transition to SPC, occasional short distances /s AD. Slightly more sore today after accidentally kneeling getting into bed last night, but overall doing very well. Physical Therapy Plan Frequency and Duration Frequency of Treatment 2x/Week Duration of Treatment Two months Plan of Care Start Date 08/10/21 Plan of Care End Date 10/10/21 Therapeutic Interventions Therapeutic Interventions Aquatic Therapy,Balance Training,Gait Training,Home Exercise Program,Manual Therapy,Neuromuscular Re- education,Patient/Caregiver Education,Self-Care/Home Management,Soft Tissue Mobilization,Therapeutic Activities,Therapeutic Exercises Modalities Cold Pack/Ice Massage,Electric Stimulation,Hot Packs, Ultrasound Next Visit Focus/Plan Next Note Type Treatment Note Next Visit Plan ROM, strengthening, flexibility
--- NOTE | 2021-09-14 11:12 | PT.OTN ---
Current Diagnoses Unilateral primary osteoarthritis, right knee (09/14/21) Pain in left knee (09/14/21) Stiffness of left knee, not elsewhere classified (09/14/21) Other abnormalities of gait and mobility (09/14/21) Aftercare following joint replacement surgery (09/14/21) Physical Therapy Treatment Note PT-OP-A Visit Information Start: 08/10/21 15:19 Freq: Status: Active Protocol: Document 09/14/21 10:30 DCW (Rec: 09/14/21 11:12 DCW [id number]) Out-Patient Physical Therapy Visit Information Visit Information Visit Type Treatment Note Visit Start Time 10:30 Visit Stop Time 11:20 Total Visit Minutes 50 Visit Number 11 Number of MILL STENCILER Visits 0 Evaluation Information Evaluation Date 08/10/21 PT-OP-B Current Condition Start: 08/10/21 15:19 Freq: Status: Active Protocol: Document 08/10/21 13:45 DCW (Rec: 08/10/21 15:36 DCW [id number]) Current Condition History of Current Condition Onset Date 08/02/21 Current Complaints Left knee pain, stiffness, and weakness s/p TKA History of Current Condition Pt is a 75 year old female presenting eight days s/p L TKA. Pt went home following her surgery, but unfortunately experienced three falls, slurred speech, and confusion. Pt was admitted to the hospital 08/05/21-08/08/21 with concerns of a TBI/CVA. Pt eventually diagnosed with a GI bleed/gastric ulcers and a UTI. Pt feeling much better now, and was able to get some PT while in the hospital and was able to get up and move around more. Notes her knee hurts horribly. Pt ambulates with a FWW, notes she does have a 4WW, but doesn't like to use it, feels it is too easy for the walker to get away from me. Has been able to do some of her HEP, including heel slides, quad/ glute sets, adductor squeeze, SLR, SAQ, and ankle pumps. Treatment Goals Patient/Caregiver Goals My goal is to do my six weeks of rehab and be good enough to be done with it. PT-OP-C Subjective Start: 08/10/21 15:19 Freq: Status: Active Protocol: Document 09/14/21 10:30 DCW (Rec: 09/14/21 11:12 DCW [id number]) OP-PT Subjective Patient Comments Patient Comments The knee is feeling good. I'm not sure about the rest of me . PT-OP-E Functional Tests Start: 08/10/21 15:19 Freq: Status: Active Protocol: Document 08/10/21 13:45 DCW (Rec: 08/10/21 15:36 DCW [id number]) Functional Tests 6 Minute Walk Test Distance 368' Device Used FWW Comments 1.02 ft/sec PT-OP-J Posture/Palpation/Skin Start: 08/10/21 15:19 Freq: Status: Active Protocol: Document 08/10/21 13:45 DCW (Rec: 08/10/21 15:36 DCW [id number]) Skin Assessment Incisional Assessment Incision Appearance/Comments Surgical incision covered in dressing, appears C, D, I PT-OP-K Range of Motion Start: 08/10/21 15:19 Freq: Status: Active Protocol: Document 08/10/21 13:45 DCW (Rec: 08/10/21 15:36 DCW [id number]) Knee Goniometric Range of Motion Knee Right Knee ROM WFL Yes Patient Position Supine Flexion Active (degrees) 0 Extension Active (degrees) 120 Left Knee ROM WFL No Patient Position Supine Flexion Active (degrees) 92 Flexion Passive (degrees) 94 Extension Active (degrees) 10 PT-OP-M Strength Start: 08/10/21 15:19 Freq: Status: Active Protocol: Document 08/10/21 13:45 DCW (Rec: 08/10/21 15:36 DCW [id number]) Knee Strength Knee Manual Muscle Testing Right Flexion (S2) 4+ Good+ Extension (L3) 4 Good Left Flexion (S2) 4 Good Extension (L3) 3- Fair- PT-OP-Q Treatments Start: 08/10/21 15:19 Freq: Status: Active Protocol: Document 09/14/21 10:30 DCW (Rec: 09/14/21 11:12 DCW [id number]) Cardio Equipment Recumbent Bicycle Duration (Minutes) 6 Resistance 6 Seat Position 4 Gym Equipment Shuttle Recovery Bilateral Squats Details Hold in flexion Resistance 75# Shuttle Balance Red Details WBOS, Staggered Therapeutic Exercises Supine Exercises 3 Supine Exercise Name SLR Side bilateral Resistance 5# Comments x10 Sitting Exercises 1 Sitting Exercise Name LAQ Side bilateral Resistance 5# Standing Exercises 2 Standing Exercise Name Hip extension Side bilateral Resistance Red T-loop Other Exercises 1 Other Exercise Name Hurdles/foam Manual Therapy Treatment Joint Mobilizations 2 Joint Patellar mobs Grade III 1 Joint Tib-femoral Direction P->A Grade III Body Position Hooklying PT-OP-R Modalities Start: 08/10/21 15:19 Freq: Status: Active Protocol: Document 09/14/21 10:30 DCW (Rec: 09/14/21 11:12 DCW [id number]) Electric Stimulation Electric Stimulation Interferential Current (IFC) Body Location L knee Duration (Minutes) 10 Intensity 17 Cycle Continuous Patient Position Hooklying PT-OP-T Assessment and Plan Start: 08/10/21 15:19 Freq: Status: Active Protocol: Document 09/14/21 10:30 DCW (Rec: 09/14/21 11:12 DCW [id number]) Physical Therapy Assessment Impairments Impairments Activity Tolerance,Functional Activities,Functional Mobility ,Gait,Pain,ROM,Soft Tissue Mobility,Strength Goals Three Impairment Left knee AROM limited to 10?- 92? Customer Relations Specialist Goal (LTG) Pt to increase left knee AROM to 0?-120? to improve ability to perform transfers and ascend/descend stairs LTG Duration 10/10/21 Two Impairment Pt ambulates 368' during 6 MWT Halfway Goal (LTG) A walking speed of less than 1 .87 ft/sec is indicative of further functional decline in older adults. Pt to increase distance of 6 MWT to at least 709' without an assistive device to demonstrate increased functional mobility and improved independence. LTG Duration 10/10/21 One Impairment Pt does not have an appropriate home exercise program Short Term Goal (STG) Pt to be independent and compliant with an appropriate HEP STG Duration 09/10/21 Assessment Summary Assessment Pt has made great progress over the last 1-2 weeks, gait, balance, and strength all significantly improved. Physical Therapy Plan Frequency and Duration Frequency of Treatment 2x/Week Duration of Treatment Two months Plan of Care Start Date 08/10/21 Plan of Care End Date 10/10/21 Therapeutic Interventions Therapeutic Interventions Aquatic Therapy,Balance Training,Gait Training,Home Exercise Program,Manual Therapy,Neuromuscular Re- education,Patient/Caregiver Education,Self-Care/Home Management,Soft Tissue Mobilization,Therapeutic Activities,Therapeutic Exercises Modalities Cold Pack/Ice Massage,Electric Stimulation,Hot Packs, Ultrasound Next Visit Focus/Plan Next Note Type Treatment Note Next Visit Plan ROM, strengthening, flexibility
--- NOTE | 2021-09-19 14:35 | PT.OTN ---
Current Diagnoses Unilateral primary osteoarthritis, right knee (09/19/21) Pain in left knee (09/19/21) Stiffness of left knee, not elsewhere classified (09/19/21) Other abnormalities of gait and mobility (09/19/21) Aftercare following joint replacement surgery (09/19/21) Physical Therapy Treatment Note PT-OP-A Visit Information Start: 08/10/21 15:19 Freq: Status: Active Protocol: Document 09/19/21 13:49 SP (Rec: 09/19/21 14:33 SP [id number]) Out-Patient Physical Therapy Visit Information Visit Information Visit Type Treatment Note Visit Start Time 13:49 Visit Stop Time 14:35 Total Visit Minutes 46 Visit Number 12 Number of INSPECTOR TYPE Visits 1 Evaluation Information Evaluation Date 08/10/21 PT-OP-B Current Condition Start: 08/10/21 15:19 Freq: Status: Active Protocol: Document 08/10/21 13:45 DCW (Rec: 08/10/21 15:36 DCW [id number]) Current Condition History of Current Condition Onset Date 08/02/21 Current Complaints Left knee pain, stiffness, and weakness s/p TKA History of Current Condition Pt is a 75 year old female presenting eight days s/p L TKA. Pt went home following her surgery, but unfortunately experienced three falls, slurred speech, and confusion. Pt was admitted to the hospital 08/05/21-08/08/21 with concerns of a TBI/CVA. Pt eventually diagnosed with a GI bleed/gastric ulcers and a UTI. Pt feeling much better now, and was able to get some PT while in the hospital and was able to get up and move around more. Notes her knee hurts horribly. Pt ambulates with a FWW, notes she does have a 4WW, but doesn't like to use it, feels it is too easy for the walker to get away from me. Has been able to do some of her HEP, including heel slides, quad/ glute sets, adductor squeeze, SLR, SAQ, and ankle pumps. Treatment Goals Patient/Caregiver Goals My goal is to do my six weeks of rehab and be good enough to be done with it. PT-OP-C Subjective Start: 08/10/21 15:19 Freq: Status: Active Protocol: Document 09/19/21 13:49 SP (Rec: 09/19/21 14:33 SP [id number]) OP-PT Subjective Patient Comments Patient Comments Pt stated feeling good, knee still hurt little bit. PT-OP-E Functional Tests Start: 08/10/21 15:19 Freq: Status: Active Protocol: Document 08/10/21 13:45 DCW (Rec: 08/10/21 15:36 DCW [id number]) Functional Tests 6 Minute Walk Test Distance 368' Device Used FWW Comments 1.02 ft/sec PT-OP-J Posture/Palpation/Skin Start: 08/10/21 15:19 Freq: Status: Active Protocol: Document 08/10/21 13:45 DCW (Rec: 08/10/21 15:36 DCW [id number]) Skin Assessment Incisional Assessment Incision Appearance/Comments Surgical incision covered in dressing, appears C, D, I PT-OP-K Range of Motion Start: 08/10/21 15:19 Freq: Status: Active Protocol: Document 08/10/21 13:45 DCW (Rec: 08/10/21 15:36 DCW [id number]) Knee Goniometric Range of Motion Knee Right Knee ROM WFL Yes Patient Position Supine Flexion Active (degrees) 0 Extension Active (degrees) 120 Left Knee ROM WFL No Patient Position Supine Flexion Active (degrees) 92 Flexion Passive (degrees) 94 Extension Active (degrees) 10 PT-OP-M Strength Start: 08/10/21 15:19 Freq: Status: Active Protocol: Document 08/10/21 13:45 DCW (Rec: 08/10/21 15:36 DCW [id number]) Knee Strength Knee Manual Muscle Testing Right Flexion (S2) 4+ Good+ Extension (L3) 4 Good Left Flexion (S2) 4 Good Extension (L3) 3- Fair- PT-OP-Q Treatments Start: 08/10/21 15:19 Freq: Status: Active Protocol: Document 09/19/21 13:49 SP (Rec: 09/19/21 14:33 SP [id number]) Cardio Equipment Recumbent Bicycle Duration (Minutes) 6 Resistance 6 Seat Position 4 Other full revolution 1.55 miles Gym Equipment Shuttle Recovery SL squat Details improved knee alignment Resistance 25# Shuttle Recovery Platform Stable Reps/Time x10 Bilateral Squats Details Hold in flexion, cued knee with/ behind toes see insole shoes Resistance 75# Shuttle Recovery Platform Stable Reps/Time 2x10 Shuttle Balance Red Details WBOS, Staggered (BLUE) Reps/Duration 6 min Comments forward, head turns EC WBOS 24 sec. Therapeutic Exercises Supine Exercises 3 Supine Exercise Name SLR Side bilateral Resistance 5#> #2 leg wt L, #5 leg on R Reps/Minutes 2x10 Comments cued quad set fac, improved knee extension w/less wt on RLE Sitting Exercises 1 Sitting Exercise Name LAQ Side bilateral Resistance 5# Equipment Used black table 20 Reps/Minutes x12 Comments cued slow pacing. Manual Therapy Treatment Soft Tissue Mobilization 1 Body Location Scar mobs Mobilization Type Cross-Friction Intensity/Depth Moderate Body Position Hooklying Comments manual and instruct self Joint Mobilizations 2 Joint Patellar mobs Grade II Comments manual and instruct self PT-OP-R Modalities Start: 08/10/21 15:19 Freq: Status: Active Protocol: Document 09/19/21 13:49 SP (Rec: 09/19/21 14:33 SP [id number]) Electric Stimulation Electric Stimulation algerian stim Body Location L knee Duration (Minutes) 8 Intensity 13 Frequency 10/30 Patient Position Hooklying Comments w/ SAQ over small blue foam roller PT-OP-T Assessment and Plan Start: 08/10/21 15:19 Freq: Status: Active Protocol: Document 09/19/21 13:49 SP (Rec: 09/19/21 14:33 SP [id number]) Physical Therapy Assessment Goals Three Impairment Left knee AROM limited to 10?- 92? Intermediate Goal (LTG) Pt to increase left knee AROM to 0?-120? to improve ability to perform transfers and ascend/descend stairs LTG Duration 10/10/21 Two Impairment Pt ambulates 368' during 6 MWT Intermediate Goal (LTG) A walking speed of less than 1 .87 ft/sec is indicative of further functional decline in older adults. Pt to increase distance of 6 MWT to at least 709' without an assistive device to demonstrate increased functional mobility and improved independence. LTG Duration 10/10/21 One Impairment Pt does not have an appropriate home exercise program Short Term Goal (STG) Pt to be independent and compliant with an appropriate HEP STG Duration 09/10/21 Assessment Summary Assessment Pt able to increase resistance shuttle recovery DL and add SL knee extension strengthening, improved quad facilitation post Serbian stim neuro re-ed. Pt decreased endurance shuttle balance this tx but able to stand blue chains with head turns and modified stagger stance EO,EC WBOS this tx Physical Therapy Plan Frequency and Duration Frequency of Treatment 2x/Week Duration of Treatment Two months Plan of Care Start Date 08/10/21 Plan of Care End Date 10/10/21 Therapeutic Interventions Therapeutic Interventions Aquatic Therapy,Balance Training,Gait Training,Home Exercise Program,Manual Therapy,Neuromuscular Re- education,Patient/Caregiver Education,Self-Care/Home Management,Soft Tissue Mobilization,Therapeutic Activities,Therapeutic Exercises Modalities Cold Pack/Ice Massage,Electric Stimulation,Hot Packs, Ultrasound Next Visit Focus/Plan Next Note Type Treatment Note Next Visit Plan ROM, strengthening, flexibility
--- NOTE | 2021-09-22 11:15 | PT.OTN ---
Current Diagnoses Unilateral primary osteoarthritis, right knee (09/22/21) Pain in left knee (09/22/21) Stiffness of left knee, not elsewhere classified (09/22/21) Other abnormalities of gait and mobility (09/22/21) Aftercare following joint replacement surgery (09/22/21) Physical Therapy Treatment Note PT-OP-A Visit Information Start: 08/10/21 15:19 Freq: Status: Active Protocol: Document 09/22/21 10:30 SP (Rec: 09/22/21 11:32 SP [id number]) Out-Patient Physical Therapy Visit Information Visit Information Visit Type Treatment Note Visit Start Time 10:30 Visit Stop Time 11:15 Total Visit Minutes 45 Visit Number 13 Number of ICU STAFF NURSE Visits 2 Evaluation Information Evaluation Date 08/10/21 PT-OP-B Current Condition Start: 08/10/21 15:19 Freq: Status: Active Protocol: Document 08/10/21 13:45 DCW (Rec: 08/10/21 15:36 DCW [id number]) Current Condition History of Current Condition Onset Date 08/02/21 Current Complaints Left knee pain, stiffness, and weakness s/p TKA History of Current Condition Pt is a 75 year old female presenting eight days s/p L TKA. Pt went home following her surgery, but unfortunately experienced three falls, slurred speech, and confusion. Pt was admitted to the hospital 08/05/21-08/08/21 with concerns of a TBI/CVA. Pt eventually diagnosed with a GI bleed/gastric ulcers and a UTI. Pt feeling much better now, and was able to get some PT while in the hospital and was able to get up and move around more. Notes her knee hurts horribly. Pt ambulates with a FWW, notes she does have a 4WW, but doesn't like to use it, feels it is too easy for the walker to get away from me. Has been able to do some of her HEP, including heel slides, quad/ glute sets, adductor squeeze, SLR, SAQ, and ankle pumps. Treatment Goals Patient/Caregiver Goals My goal is to do my six weeks of rehab and be good enough to be done with it. PT-OP-C Subjective Start: 08/10/21 15:19 Freq: Status: Active Protocol: Document 09/22/21 10:30 SP (Rec: 09/22/21 11:32 SP [id number]) OP-PT Subjective Patient Comments Patient Comments Pt stated was sore and little pain 06/12 noticing was here and did activity, has been trying the scar mob like shown feels does help with moving better. PT-OP-E Functional Tests Start: 08/10/21 15:19 Freq: Status: Active Protocol: Document 08/10/21 13:45 DCW (Rec: 08/10/21 15:36 DCW [id number]) Functional Tests 6 Minute Walk Test Distance 368' Device Used FWW Comments 1.02 ft/sec PT-OP-J Posture/Palpation/Skin Start: 08/10/21 15:19 Freq: Status: Active Protocol: Document 08/10/21 13:45 DCW (Rec: 08/10/21 15:36 DCW [id number]) Skin Assessment Incisional Assessment Incision Appearance/Comments Surgical incision covered in dressing, appears C, D, I PT-OP-K Range of Motion Start: 08/10/21 15:19 Freq: Status: Active Protocol: Document 09/22/21 10:30 SP (Rec: 09/22/21 11:32 SP [id number]) Knee Goniometric Range of Motion Knee Left Knee ROM WFL No Patient Position Supine Flexion Active (degrees) 123 Extension Active (degrees) 1 Comments supine PT-OP-M Strength Start: 08/10/21 15:19 Freq: Status: Active Protocol: Document 08/10/21 13:45 DCW (Rec: 08/10/21 15:36 DCW [id number]) Knee Strength Knee Manual Muscle Testing Right Flexion (S2) 4+ Good+ Extension (L3) 4 Good Left Flexion (S2) 4 Good Extension (L3) 3- Fair- PT-OP-Q Treatments Start: 08/10/21 15:19 Freq: Status: Active Protocol: Document 09/22/21 10:30 SP (Rec: 09/22/21 11:32 SP [id number]) Cardio Equipment Recumbent Bicycle Duration (Minutes) 6 Resistance 6 Seat Position 4 Other full revolution miles Gym Equipment Shuttle Recovery SL squat Details improved knee alignment Resistance 25# Shuttle Recovery Platform Stable Reps/Time x10 Bilateral Squats Details Hold in flexion, cued knee with/ behind toes see insole shoes Resistance 75# Shuttle Recovery Platform Stable Reps/Time 2x10 Shuttle Balance Red Details WBOS, Staggered (BLUE) Reps/Duration 6 min Comments forward, head turns NBOS look forward only- wobbly CG- 10%A cues corrections Therapeutic Exercises Supine Exercises 3 Supine Exercise Name SLR Side bilateral Resistance #2 leg wt L Reps/Minutes x10 Comments cued quad set fac, improved knee extension w/less wt on RLE paula post RussES Sitting Exercises sit to stands Resistance hands on lap Equipment Used 18 black table Reps/Minutes x5 reps Comments cued scoot forward, feet back, hip hinge up/slow eccentric down sit 1 Sitting Exercise Name LAQ Side bilateral Resistance 2# Equipment Used black table 20 Reps/Minutes 2X10 Comments good slow pacing. Manual Therapy Treatment Soft Tissue Mobilization 1 Body Location Scar mobs Mobilization Type Cross-Friction Intensity/Depth Moderate Body Position Hooklying Comments manual, review self gentle but beneficial as paula Joint Mobilizations 2 Joint Patellar mobs Grade II Comments manual, verbalized doing self as well. Neuro Re-Education Treatment Balance Activities corner balance Details NBOS, stagger Surface firm Equipment corner back, chair front Comments NBOS: head turn, EC up to 30 s Stagger: head forward and head turn little sway but self correct. PT-OP-R Modalities Start: 08/10/21 15:19 Freq: Status: Active Protocol: Document 09/22/21 10:30 SP (Rec: 09/22/21 11:32 SP [id number]) Electric Stimulation Electric Stimulation djiboutian stim Body Location L VMO Duration (Minutes) 8 Intensity 16 Frequency 10/10 Patient Position Hooklying Comments w/ SAQ over small blue foam roller- improved quad contraction hold- able increase 10/10 PT-OP-T Assessment and Plan Start: 08/10/21 15:19 Freq: Status: Active Protocol: Document 09/22/21 10:30 SP (Rec: 09/22/21 11:32 SP [id number]) Physical Therapy Assessment Goals Three Impairment Left knee AROM limited to 10?- 92? Senior Living Goal (LTG) Pt to increase left knee AROM to 0?-120? to improve ability to perform transfers and ascend/descend stairs 09/22/21: 1-123deg AROM L knee. LTG Duration 10/10/21 Two Impairment Pt ambulates 368' during 6 MWT Washer Operator Goal (LTG) A walking speed of less than 1 .87 ft/sec is indicative of further functional decline in older adults. Pt to increase distance of 6 MWT to at least 709' without an assistive device to demonstrate increased functional mobility and improved independence. LTG Duration 10/10/21 One Impairment Pt does not have an appropriate home exercise program Short Term Goal (STG) Pt to be independent and compliant with an appropriate HEP 09/22/21: HEP: QS, SLR, STS, LAQ, scar and patella mobs. STG Duration 09/10/21 Assessment Summary Assessment Pt improving in AROM gains 1- 123 deg L knee, improved awareness knee flexion and heel toe during gait. Pt able to complete STS with UE support on lap this tx. Physical Therapy Plan Frequency and Duration Frequency of Treatment 2x/Week Duration of Treatment Two months Plan of Care Start Date 08/10/21 Plan of Care End Date 10/10/21 Therapeutic Interventions Therapeutic Interventions Aquatic Therapy,Balance Training,Gait Training,Home Exercise Program,Manual Therapy,Neuromuscular Re- education,Patient/Caregiver Education,Self-Care/Home Management,Soft Tissue Mobilization,Therapeutic Activities,Therapeutic Exercises Modalities Cold Pack/Ice Massage,Electric Stimulation,Hot Packs, Ultrasound Next Visit Focus/Plan Next Note Type Treatment Note Next Visit Plan REview HEP: progress: ROM, strengthening, flexibility
--- NOTE | 2021-09-26 09:45 | PT.OTN ---
Current Diagnoses Unilateral primary osteoarthritis, right knee (09/26/21) Pain in left knee (09/26/21) Stiffness of left knee, not elsewhere classified (09/26/21) Other abnormalities of gait and mobility (09/26/21) Aftercare following joint replacement surgery (09/26/21) Physical Therapy Treatment Note PT-OP-A Visit Information Start: 08/10/21 15:19 Freq: Status: Active Protocol: Document 09/26/21 09:02 SP (Rec: 09/26/21 09:47 SP [id number]) Out-Patient Physical Therapy Visit Information Visit Information Visit Type Treatment Note Visit Start Time 09:03 Visit Stop Time 09:45 Total Visit Minutes 42 Visit Number 14 Number of OIL PLANT OPERATOR Visits 3 Evaluation Information Evaluation Date 08/10/21 PT-OP-B Current Condition Start: 08/10/21 15:19 Freq: Status: Active Protocol: Document 08/10/21 13:45 DCW (Rec: 08/10/21 15:36 DCW [id number]) Current Condition History of Current Condition Onset Date 08/02/21 Current Complaints Left knee pain, stiffness, and weakness s/p TKA History of Current Condition Pt is a 75 year old female presenting eight days s/p L TKA. Pt went home following her surgery, but unfortunately experienced three falls, slurred speech, and confusion. Pt was admitted to the hospital 08/05/21-08/08/21 with concerns of a TBI/CVA. Pt eventually diagnosed with a GI bleed/gastric ulcers and a UTI. Pt feeling much better now, and was able to get some PT while in the hospital and was able to get up and move around more. Notes her knee hurts horribly. Pt ambulates with a FWW, notes she does have a 4WW, but doesn't like to use it, feels it is too easy for the walker to get away from me. Has been able to do some of her HEP, including heel slides, quad/ glute sets, adductor squeeze, SLR, SAQ, and ankle pumps. Treatment Goals Patient/Caregiver Goals My goal is to do my six weeks of rehab and be good enough to be done with it. PT-OP-C Subjective Start: 08/10/21 15:19 Freq: Status: Active Protocol: Document 09/26/21 09:02 SP (Rec: 09/26/21 09:47 SP [id number]) OP-PT Subjective Patient Comments Patient Comments Pt stated having soreness over L medial knee and lower leg since last tx. She stated has been doing more walking and trying to be mindful of flexing the L knee when walking. She states even her R knee hurts today, not sure why. PT-OP-E Functional Tests Start: 08/10/21 15:19 Freq: Status: Active Protocol: Document 08/10/21 13:45 DCW (Rec: 08/10/21 15:36 DCW [id number]) Functional Tests 6 Minute Walk Test Distance 368' Device Used FWW Comments 1.02 ft/sec PT-OP-J Posture/Palpation/Skin Start: 08/10/21 15:19 Freq: Status: Active Protocol: Document 08/10/21 13:45 DCW (Rec: 08/10/21 15:36 DCW [id number]) Skin Assessment Incisional Assessment Incision Appearance/Comments Surgical incision covered in dressing, appears C, D, I PT-OP-K Range of Motion Start: 08/10/21 15:19 Freq: Status: Active Protocol: Document 09/22/21 10:30 SP (Rec: 09/22/21 11:32 SP [id number]) Knee Goniometric Range of Motion Knee Left Knee ROM WFL No Patient Position Supine Flexion Active (degrees) 123 Extension Active (degrees) 1 Comments supine PT-OP-M Strength Start: 08/10/21 15:19 Freq: Status: Active Protocol: Document 08/10/21 13:45 DCW (Rec: 08/10/21 15:36 DCW [id number]) Knee Strength Knee Manual Muscle Testing Right Flexion (S2) 4+ Good+ Extension (L3) 4 Good Left Flexion (S2) 4 Good Extension (L3) 3- Fair- PT-OP-Q Treatments Start: 08/10/21 15:19 Freq: Status: Active Protocol: Document 09/26/21 09:02 SP (Rec: 09/26/21 09:47 SP [id number]) Cardio Equipment Recumbent Bicycle Duration (Minutes) 8 Resistance 6 Seat Position 4 Other Miles 1.80 Gym Equipment Shuttle Recovery SL squat Details improved knee alignment Resistance 25# Shuttle Recovery Platform Stable Reps/Time x10 Bilateral Squats Details Hold in flexion, cued knee with/ behind toes see insole shoes Resistance 75# Shuttle Recovery Platform Stable Reps/Time 2x10 Therapeutic Exercises Supine Exercises 3 Supine Exercise Name SLR Side left Resistance AROM, Reps/Minutes x10 Comments cued quad set fac then lift, decreased extension ROM (not measured) Standing Exercises TKE Standing Exercise Name added to HEP Side left Resistance TB #1 Reps/Minutes 2x10 Manual Therapy Treatment Soft Tissue Mobilization pes ancerine Body Location L medial knee Mobilization Type Myofascial Release,Strumming Intensity/Depth Moderate Body Position Sitting 1 Body Location Scar mobs Mobilization Type Cross-Friction Intensity/Depth Moderate Body Position Hooklying Comments manual, review self gentle but beneficial as paula Neuro Re-Education Treatment Balance Activities corner balance Details NBOS, stagger Surface firm Equipment corner back, chair front Reps/Duration able 30 sec NBOS and Stagger small ANAIS Comments NBOS: head turn, EC up to 30 s Stagger: head forward and head turn little sway but self correct. Self-Care/Home Management Treatment Education Patient Education Home Exercise Program Other Education intiated TKE with good feedback quad facilitation. PT-OP-R Modalities Start: 08/10/21 15:19 Freq: Status: Active Protocol: Document 09/26/21 09:02 SP (Rec: 09/26/21 09:47 SP [id number]) Ultrasound Therapy Treatment Left Medial Proximal Leg Treatment Duration (minutes) 8 Patient Position Hooklying Applicator Size (cm2) 2 Frequency Setting (mHz) 1 Duty Cycle 50% Intensity Setting (w/cm2) 1.0 Comments good response, less pain over L medial knee (over pes ancerine). PT-OP-T Assessment and Plan Start: 08/10/21 15:19 Freq: Status: Active Protocol: Document 09/26/21 09:02 SP (Rec: 09/26/21 09:47 SP [id number]) Physical Therapy Assessment Goals Three Impairment Left knee AROM limited to 10?- 92? Potter Or Ceramic Artist Goal (LTG) Pt to increase left knee AROM to 0?-120? to improve ability to perform transfers and ascend/descend stairs 09/22/21: 1-123deg AROM L knee. LTG Duration 10/10/21 Two Impairment Pt ambulates 368' during 6 MWT Mcfp Goal (LTG) A walking speed of less than 1 .87 ft/sec is indicative of further functional decline in older adults. Pt to increase distance of 6 MWT to at least 709' without an assistive device to demonstrate increased functional mobility and improved independence. LTG Duration 10/10/21 One Impairment Pt does not have an appropriate home exercise program Short Term Goal (STG) Pt to be independent and compliant with an appropriate HEP 09/22/21: HEP: QS, SLR, STS, LAQ, scar and patella mobs. STG Duration 09/10/21 Assessment Summary Assessment Pt had decrease medial L knee pain with increase 90deg ROM during shuttle recovery. Pt stated decrease pain post manual, US and K taping over medial following adductor/ medial quad able to add TKE for quad strengthening and support knee extension, decrease noted ROM but not measured. Physical Therapy Plan Frequency and Duration Frequency of Treatment 2x/Week Duration of Treatment Two months Plan of Care Start Date 08/10/21 Plan of Care End Date 10/10/21 Therapeutic Interventions Therapeutic Interventions Aquatic Therapy,Balance Training,Gait Training,Home Exercise Program,Manual Therapy,Neuromuscular Re- education,Patient/Caregiver Education,Self-Care/Home Management,Soft Tissue Mobilization,Therapeutic Activities,Therapeutic Exercises Modalities Cold Pack/Ice Massage,Electric Stimulation,Hot Packs, Ultrasound Next Visit Focus/Plan Next Note Type Treatment Note Next Visit Plan Measure AROM, check TKE added last. REview HEP: progress: ROM, strengthening, flexibility
--- NOTE | 2021-09-28 11:14 | PT.OTN ---
Current Diagnoses Unilateral primary osteoarthritis, right knee (09/28/21) Pain in left knee (09/28/21) Stiffness of left knee, not elsewhere classified (09/28/21) Other abnormalities of gait and mobility (09/28/21) Aftercare following joint replacement surgery (09/28/21) Physical Therapy Treatment Note PT-OP-A Visit Information Start: 08/10/21 15:19 Freq: Status: Active Protocol: Document 09/28/21 10:30 DCW (Rec: 09/28/21 11:13 DCW [id number]) Out-Patient Physical Therapy Visit Information Visit Information Visit Type Treatment Note Visit Start Time 10:30 Visit Stop Time 11:15 Total Visit Minutes 45 Visit Number 15 Number of RN BEHAVIORAL HEALTH Visits 0 Evaluation Information Evaluation Date 08/10/21 PT-OP-B Current Condition Start: 08/10/21 15:19 Freq: Status: Active Protocol: Document 08/10/21 13:45 DCW (Rec: 08/10/21 15:36 DCW [id number]) Current Condition History of Current Condition Onset Date 08/02/21 Current Complaints Left knee pain, stiffness, and weakness s/p TKA History of Current Condition Pt is a 75 year old female presenting eight days s/p L TKA. Pt went home following her surgery, but unfortunately experienced three falls, slurred speech, and confusion. Pt was admitted to the hospital 08/05/21-08/08/21 with concerns of a TBI/CVA. Pt eventually diagnosed with a GI bleed/gastric ulcers and a UTI. Pt feeling much better now, and was able to get some PT while in the hospital and was able to get up and move around more. Notes her knee hurts horribly. Pt ambulates with a FWW, notes she does have a 4WW, but doesn't like to use it, feels it is too easy for the walker to get away from me. Has been able to do some of her HEP, including heel slides, quad/ glute sets, adductor squeeze, SLR, SAQ, and ankle pumps. Treatment Goals Patient/Caregiver Goals My goal is to do my six weeks of rehab and be good enough to be done with it. PT-OP-C Subjective Start: 08/10/21 15:19 Freq: Status: Active Protocol: Document 09/28/21 10:30 DCW (Rec: 09/28/21 11:14 DCW [id number]) OP-PT Subjective Patient Comments Patient Comments Pt reports she has been trying not to use her cane around her home. PT-OP-E Functional Tests Start: 08/10/21 15:19 Freq: Status: Active Protocol: Document 08/10/21 13:45 DCW (Rec: 08/10/21 15:36 DCW [id number]) Functional Tests 6 Minute Walk Test Distance 368' Device Used FWW Comments 1.02 ft/sec PT-OP-J Posture/Palpation/Skin Start: 08/10/21 15:19 Freq: Status: Active Protocol: Document 08/10/21 13:45 DCW (Rec: 08/10/21 15:36 DCW [id number]) Skin Assessment Incisional Assessment Incision Appearance/Comments Surgical incision covered in dressing, appears C, D, I PT-OP-K Range of Motion Start: 08/10/21 15:19 Freq: Status: Active Protocol: Document 09/22/21 10:30 SP (Rec: 09/22/21 11:32 SP [id number]) Knee Goniometric Range of Motion Knee Left Knee ROM WFL No Patient Position Supine Flexion Active (degrees) 123 Extension Active (degrees) 1 Comments supine PT-OP-M Strength Start: 08/10/21 15:19 Freq: Status: Active Protocol: Document 08/10/21 13:45 DCW (Rec: 08/10/21 15:36 DCW [id number]) Knee Strength Knee Manual Muscle Testing Right Flexion (S2) 4+ Good+ Extension (L3) 4 Good Left Flexion (S2) 4 Good Extension (L3) 3- Fair- PT-OP-Q Treatments Start: 08/10/21 15:19 Freq: Status: Active Protocol: Document 09/28/21 10:30 DCW (Rec: 09/28/21 11:13 DCW [id number]) Cardio Equipment Recumbent Bicycle Duration (Minutes) 6 Resistance 6 Seat Position 3 Other Distance 1.38 Gym Equipment Shuttle Recovery SL squat Details improved knee alignment Resistance 37# Shuttle Recovery Platform Stable Reps/Time x10 Bilateral Squats Details Hold in flexion, cued knee with/ behind toes see insole shoes Resistance 100# Shuttle Recovery Platform Stable Reps/Time 2x10 Shuttle Balance Red Details WBOS, Staggered Reps/Duration 6 min Therapeutic Exercises Supine Exercises 3 Supine Exercise Name SLR Side left Resistance AROM, Reps/Minutes x10 Comments cued quad set fac then lift, decreased extension ROM (not measured) Sitting Exercises 1 Sitting Exercise Name LAQ Side bilateral Resistance 5# Reps/Minutes 2X10 Comments good slow pacing. Other Exercises 1 Other Exercise Name Resisted side-stepping Resistance Red Manual Therapy Treatment Soft Tissue Mobilization pes ancerine Body Location L medial knee Mobilization Type Myofascial Release,Strumming Intensity/Depth Moderate Body Position Hooklying Joint Mobilizations 2 Joint Patellar mobs Grade II Comments manual, verbalized doing self as well. 1 Joint Tib-femoral Direction P->A Grade III Body Position Hooklying PT-OP-R Modalities Start: 08/10/21 15:19 Freq: Status: Active Protocol: Document 09/26/21 09:02 SP (Rec: 09/26/21 09:47 SP [id number]) Ultrasound Therapy Treatment Left Medial Proximal Leg Treatment Duration (minutes) 8 Patient Position Hooklying Applicator Size (cm2) 2 Frequency Setting (mHz) 1 Duty Cycle 50% Intensity Setting (w/cm2) 1.0 Comments good response, less pain over L medial knee (over pes ancerine). PT-OP-T Assessment and Plan Start: 08/10/21 15:19 Freq: Status: Active Protocol: Document 09/28/21 10:30 DCW (Rec: 09/28/21 11:13 DCW [id number]) Physical Therapy Assessment Impairments Impairments Activity Tolerance,Functional Activities,Functional Mobility ,Gait,Pain,ROM,Soft Tissue Mobility,Strength Goals Three Impairment Left knee AROM limited to 10?- 92? Histotechnician Goal (LTG) Pt to increase left knee AROM to 0?-120? to improve ability to perform transfers and ascend/descend stairs 09/22/21: 1-123deg AROM L knee. LTG Duration 10/10/21 Two Impairment Pt ambulates 368' during 6 MWT Fdc Goal (LTG) A walking speed of less than 1 .87 ft/sec is indicative of further functional decline in older adults. Pt to increase distance of 6 MWT to at least 709' without an assistive device to demonstrate increased functional mobility and improved independence. LTG Duration 10/10/21 One Impairment Pt does not have an appropriate home exercise program Short Term Goal (STG) Pt to be independent and compliant with an appropriate HEP 09/22/21: HEP: QS, SLR, STS, LAQ, scar and patella mobs. STG Duration Met Assessment Summary Assessment Pt ambulating much better today, feeling good with short distances without an AD. Improving strength and stability of knee. Physical Therapy Plan Frequency and Duration Frequency of Treatment 2x/Week Duration of Treatment Two months Plan of Care Start Date 08/10/21 Plan of Care End Date 10/10/21 Therapeutic Interventions Therapeutic Interventions Aquatic Therapy,Balance Training,Gait Training,Home Exercise Program,Manual Therapy,Neuromuscular Re- education,Patient/Caregiver Education,Self-Care/Home Management,Soft Tissue Mobilization,Therapeutic Activities,Therapeutic Exercises Modalities Cold Pack/Ice Massage,Electric Stimulation,Hot Packs, Ultrasound Next Visit Focus/Plan Next Note Type Treatment Note Next Visit Plan Measure AROM, check TKE added last. REview HEP: progress: ROM, strengthening, flexibility
--- NOTE | 2021-10-03 11:15 | PT.OTN ---
Current Diagnoses Unilateral primary osteoarthritis, right knee (10/03/21) Pain in left knee (10/03/21) Stiffness of left knee, not elsewhere classified (10/03/21) Other abnormalities of gait and mobility (10/03/21) Aftercare following joint replacement surgery (10/03/21) Physical Therapy Treatment Note PT-OP-A Visit Information Start: 08/10/21 15:19 Freq: Status: Active Protocol: Document 10/03/21 10:30 SP (Rec: 10/03/21 11:38 SP [id number]) Out-Patient Physical Therapy Visit Information Visit Information Visit Type Treatment Note Visit Start Time 10:30 Visit Stop Time 11:15 Total Visit Minutes 45 Visit Number 16 Number of WAX PATTERN ASSEMBLER Visits 1 Evaluation Information Evaluation Date 08/10/21 PT-OP-B Current Condition Start: 08/10/21 15:19 Freq: Status: Active Protocol: Document 08/10/21 13:45 DCW (Rec: 08/10/21 15:36 DCW [id number]) Current Condition History of Current Condition Onset Date 08/02/21 Current Complaints Left knee pain, stiffness, and weakness s/p TKA History of Current Condition Pt is a 75 year old female presenting eight days s/p L TKA. Pt went home following her surgery, but unfortunately experienced three falls, slurred speech, and confusion. Pt was admitted to the hospital 08/05/21-08/08/21 with concerns of a TBI/CVA. Pt eventually diagnosed with a GI bleed/gastric ulcers and a UTI. Pt feeling much better now, and was able to get some PT while in the hospital and was able to get up and move around more. Notes her knee hurts horribly. Pt ambulates with a FWW, notes she does have a 4WW, but doesn't like to use it, feels it is too easy for the walker to get away from me. Has been able to do some of her HEP, including heel slides, quad/ glute sets, adductor squeeze, SLR, SAQ, and ankle pumps. Treatment Goals Patient/Caregiver Goals My goal is to do my six weeks of rehab and be good enough to be done with it. PT-OP-C Subjective Start: 08/10/21 15:19 Freq: Status: Active Protocol: Document 10/03/21 10:30 SP (Rec: 10/03/21 11:38 SP [id number]) OP-PT Subjective Patient Comments Patient Comments Pt reported having alot pain medial and lateral L knee today. Requested retaping L knee today, feels helps support knee but falling off. Wants to review corner balance see how doing compared to prior txs. PT-OP-E Functional Tests Start: 08/10/21 15:19 Freq: Status: Active Protocol: Document 08/10/21 13:45 DCW (Rec: 08/10/21 15:36 DCW [id number]) Functional Tests 6 Minute Walk Test Distance 368' Device Used FWW Comments 1.02 ft/sec PT-OP-J Posture/Palpation/Skin Start: 08/10/21 15:19 Freq: Status: Active Protocol: Document 08/10/21 13:45 DCW (Rec: 08/10/21 15:36 DCW [id number]) Skin Assessment Incisional Assessment Incision Appearance/Comments Surgical incision covered in dressing, appears C, D, I PT-OP-K Range of Motion Start: 08/10/21 15:19 Freq: Status: Active Protocol: Document 09/22/21 10:30 SP (Rec: 09/22/21 11:32 SP [id number]) Knee Goniometric Range of Motion Knee Left Knee ROM WFL No Patient Position Supine Flexion Active (degrees) 123 Extension Active (degrees) 1 Comments supine PT-OP-M Strength Start: 08/10/21 15:19 Freq: Status: Active Protocol: Document 08/10/21 13:45 DCW (Rec: 08/10/21 15:36 DCW [id number]) Knee Strength Knee Manual Muscle Testing Right Flexion (S2) 4+ Good+ Extension (L3) 4 Good Left Flexion (S2) 4 Good Extension (L3) 3- Fair- PT-OP-Q Treatments Start: 08/10/21 15:19 Freq: Status: Active Protocol: Document 10/03/21 10:30 SP (Rec: 10/03/21 11:38 SP [id number]) Gym Equipment Shuttle Recovery SL squat Details improved knee alignment Resistance 37# R, 12# LLE stopped after 3 reps 2* pain Shuttle Recovery Platform Stable Reps/Time x10 Bilateral Squats Details Hold in flexion, cued knee with/ behind toes see insole shoes Resistance unable 100#> 87#> 75# Shuttle Recovery Platform Stable Reps/Time 2x10 Therapeutic Exercises Standing Exercises TKE Standing Exercise Name REviewed HEP Side left Resistance TB #1 Reps/Minutes 2x10 Comments cued set up/ alignment Gait Training Gait Activity 1 Description uneven surface Device Used SPC, CGA Level of Assistance CGA Surface 2 blue mats Distance/Duration x4 laps Treatment Focus L hip abd and core fac, even stance time and balanace recovery Comments cued L hip fac/pelvis under trunk w/ tall posture with awareness, LLE knee flexion foot clearance/stride better during swing phase advancement and hip abd fac during heel strike to midstance to toe off for improved stability. Instructed use cane for better / quality form. Manual Therapy Treatment Soft Tissue Mobilization pes ancerine Body Location L medial knee Mobilization Type Myofascial Release,Strumming Intensity/Depth Moderate Body Position Hooklying 1 Body Location Scar mobs Mobilization Type Cross-Friction Intensity/Depth Moderate Body Position Hooklying Comments manual, review self gentle but beneficial as paula Joint Mobilizations 2 Joint Patellar mobs Grade II Comments manual, verbalized doing self as well. Taping lymphedema taping Body Location L lateral knee jt Treatment Focus lymph return Type of Tape Kinesio Tape Skin Inspection intact, baseball circumference swelling Comments anchored anterolateral prox tib/fib superior/ lateral 1>3 strands 15% tension. L anterolateral knee Body Location along adductor (distal> prox) Treatment Focus knee stability, painrelief Type of Tape Kinesio Tape Skin Inspection intact, noted Lateral knee swelling baseball circumference Comments 50% tension medial taping along pes ancerine and to mid quad. Neuro Re-Education Treatment Balance Activities rocker board Details f/b/lateral wt shifts Equipment //bars PRN Comments cued tall posture, try wt shift more into LLE for even stance. corner balance Details NBOS, stagger Surface firm Equipment corner back, chair front Reps/Duration able 30 sec NBOS and Stagger small ANAIS Comments NBOS: EC 30 s Stagger: EC 30s each LE positioning tandem: EO, LLE forward 30s, 24s RLE forward PT-OP-R Modalities Start: 08/10/21 15:19 Freq: Status: Active Protocol: Document 09/26/21 09:02 SP (Rec: 09/26/21 09:47 SP [id number]) Ultrasound Therapy Treatment Left Medial Proximal Leg Treatment Duration (minutes) 8 Patient Position Hooklying Applicator Size (cm2) 2 Frequency Setting (mHz) 1 Duty Cycle 50% Intensity Setting (w/cm2) 1.0 Comments good response, less pain over L medial knee (over pes ancerine). PT-OP-T Assessment and Plan Start: 08/10/21 15:19 Freq: Status: Active Protocol: Document 10/03/21 10:30 SP (Rec: 10/03/21 11:38 SP [id number]) Physical Therapy Assessment Goals Three Impairment Left knee AROM limited to 10?- 92? Nursing Home Goal (LTG) Pt to increase left knee AROM to 0?-120? to improve ability to perform transfers and ascend/descend stairs 09/22/21: 1-123deg AROM L knee. 10/03/21: 3-120 L knee AROM, 1 deg ext with QS, 3 deg was relaxed ROM. LTG Duration 10/10/21 Two Impairment Pt ambulates 368' during 6 MWT Nursing Home Goal (LTG) A walking speed of less than 1 .87 ft/sec is indicative of further functional decline in older adults. Pt to increase distance of 6 MWT to at least 709' without an assistive device to demonstrate increased functional mobility and improved independence. LTG Duration 10/10/21 One Impairment Pt does not have an appropriate home exercise program Short Term Goal (STG) Pt to be independent and compliant with an appropriate HEP 09/22/21: HEP: QS, SLR, STS, LAQ, scar and patella mobs. STG Duration Met Progress Towards Goals Progress Towards Goals Slow Progress due to Activity Tolerance Progress Comments Decreased AROM L knee today due to pain, 3-120 deg, was 1- 124 deg past tx. Assessment Summary Assessment Improved L knee discomfort post manual, K taping and hip abd fac post education uneven gait and balance training. Needed to decreased shuttle recovery resistance due to L knee pain. Physical Therapy Plan Frequency and Duration Frequency of Treatment 2x/Week Duration of Treatment Two months Plan of Care Start Date 08/10/21 Plan of Care End Date 10/10/21 Therapeutic Interventions Therapeutic Interventions Aquatic Therapy,Balance Training,Gait Training,Home Exercise Program,Manual Therapy,Neuromuscular Re- education,Patient/Caregiver Education,Self-Care/Home Management,Soft Tissue Mobilization,Therapeutic Activities,Therapeutic Exercises Modalities Cold Pack/Ice Massage,Electric Stimulation,Hot Packs, Ultrasound Next Visit Focus/Plan Next Note Type Treatment Note Next Visit Plan Measure AROM, check TKE added last. REview HEP: progress: ROM, strengthening, flexibility
--- NOTE | 2021-10-12 12:28 | PT.OPPN ---
Current Diagnoses Unilateral primary osteoarthritis, right knee (10/12/21) Pain in left knee (10/12/21) Stiffness of left knee, not elsewhere classified (10/12/21) Other abnormalities of gait and mobility (10/12/21) Aftercare following joint replacement surgery (10/12/21) Physical Therapy Progress Note PT-OP-A Visit Information Start: 08/10/21 15:19 Freq: Status: Active Protocol: Document 10/12/21 10:33 AW (Rec: 10/12/21 12:28 AW [id number]) Out-Patient Physical Therapy Visit Information Visit Information Visit Type Treatment Note Visit Start Time 10:30 Visit Stop Time 11:15 Total Visit Minutes 45 Visit Number 17 Number of CUSTOMS APPRAISER Visits 0 Evaluation Information Evaluation Date 08/10/21 PT-OP-B Current Condition Start: 08/10/21 15:19 Freq: Status: Active Protocol: Document 08/10/21 13:45 DCW (Rec: 08/10/21 15:36 DCW [id number]) Current Condition History of Current Condition Onset Date 08/02/21 Current Complaints Left knee pain, stiffness, and weakness s/p TKA History of Current Condition Pt is a 75 year old female presenting eight days s/p L TKA. Pt went home following her surgery, but unfortunately experienced three falls, slurred speech, and confusion. Pt was admitted to the hospital 08/05/21-08/08/21 with concerns of a TBI/CVA. Pt eventually diagnosed with a GI bleed/gastric ulcers and a UTI. Pt feeling much better now, and was able to get some PT while in the hospital and was able to get up and move around more. Notes her knee hurts horribly. Pt ambulates with a FWW, notes she does have a 4WW, but doesn't like to use it, feels it is too easy for the walker to get away from me. Has been able to do some of her HEP, including heel slides, quad/ glute sets, adductor squeeze, SLR, SAQ, and ankle pumps. Treatment Goals Patient/Caregiver Goals My goal is to do my six weeks of rehab and be good enough to be done with it. PT-OP-C Subjective Start: 08/10/21 15:19 Freq: Status: Active Protocol: Document 10/12/21 10:33 AW (Rec: 10/12/21 12:28 AW [id number]) OP-PT Subjective Patient Comments Patient Comments I fell out of my bed last week and had to crawl on my knees. Now I sense a click in my left knee when I walk. I went for a long walk yesterday with my walking stick and had to take several standing rest breaks on the way back but I made it. Longest walk since surgery. PT-OP-E Functional Tests Start: 08/10/21 15:19 Freq: Status: Active Protocol: Document 08/10/21 13:45 DCW (Rec: 08/10/21 15:36 DCW [id number]) Functional Tests 6 Minute Walk Test Distance 368' Device Used FWW Comments 1.02 ft/sec PT-OP-J Posture/Palpation/Skin Start: 08/10/21 15:19 Freq: Status: Active Protocol: Document 08/10/21 13:45 DCW (Rec: 08/10/21 15:36 DCW [id number]) Skin Assessment Incisional Assessment Incision Appearance/Comments Surgical incision covered in dressing, appears C, D, I PT-OP-K Range of Motion Start: 08/10/21 15:19 Freq: Status: Active Protocol: Document 09/22/21 10:30 SP (Rec: 09/22/21 11:32 SP [id number]) Knee Goniometric Range of Motion Knee Measured in Degrees Left Knee ROM WFL No Patient Position Supine Flexion Active (degrees) 123 Extension Active (degrees) 1 Comments supine PT-OP-M Strength Start: 08/10/21 15:19 Freq: Status: Active Protocol: Document 08/10/21 13:45 DCW (Rec: 08/10/21 15:36 DCW [id number]) Knee Strength Knee Manual Muscle Testing Right Flexion (S2) 4+ Good+ Extension (L3) 4 Good Left Flexion (S2) 4 Good Extension (L3) 3- Fair- PT-OP-T Assessment and Plan Start: 08/10/21 15:19 Freq: Status: Active Protocol: Document 10/12/21 10:33 AW (Rec: 10/12/21 12:28 AW [id number]) Physical Therapy Assessment Goals Four Impairment strength Prison Goal (LTG) Pt will complete 5 Time Sit to machine cell tuber 13 seconds or less as a measure of improved LE strength. LTG Duration 7/11/22 Three Impairment Left knee AROM limited to 10?- 92? Prison Goal (LTG) Pt to increase left knee AROM to 0?-120? to improve ability to perform transfers and ascend/descend stairs 09/22/21: 1-123deg AROM L knee. 10/03/21: 3-120 L knee AROM, 1 deg ext with QS, 3 deg was relaxed ROM. 10/12/21: 1-122 L knee AROM LTG Duration GOAL MET Two Impairment Pt ambulates 368' during 6 MWT Prison Goal (LTG) A walking speed of less than 1 .87 ft/sec is indicative of further functional decline in older adults. Pt to increase distance of 6 MWT to at least 709' without an assistive device to demonstrate increased functional mobility and improved independence. 10/12/21: Pt walks 590 feet with SPC on 6MWT for average gait speed of 0.5 m/s. Continue toward goal LTG Duration 12/11/21 One Impairment Pt does not have an appropriate home exercise program Short Term Goal (STG) Pt to be independent and compliant with an appropriate HEP 09/22/21: HEP: QS, SLR, STS, LAQ, scar and patella mobs. STG Duration Met Assessment Summary Assessment Pt reports clicking in left knee at terminal stance which is palpable in weight shifting but appears benign. Will continue to monitor. Pt was feeling low energy today but completed 6MWT with average gait speed of 0.5 m/s. Plan to continue working on quad strength and gait for improved community ambulation. Physical Therapy Plan Frequency and Duration Frequency of Treatment 2x/Week Duration of Treatment Two months Plan of Care Start Date 10/11/21 Plan of Care End Date 12/11/21 Therapeutic Interventions Therapeutic Interventions Aquatic Therapy,Balance Training,Gait Training,Home Exercise Program,Manual Therapy,Neuromuscular Re- education,Patient/Caregiver Education,Self-Care/Home Management,Soft Tissue Mobilization,Therapeutic Activities,Therapeutic Exercises Modalities Cold Pack/Ice Massage,Electric Stimulation,Hot Packs, Ultrasound Next Visit Focus/Plan Next Note Type Treatment Note Next Visit Plan Measure AROM, check TKE added last. REview HEP: progress: ROM, strengthening, flexibility
--- NOTE | 2021-10-12 12:28 | PT.OPPOC ---
Physical, Occupational & Speech Therapy At [facility] Current Diagnoses Unilateral primary osteoarthritis, right knee (10/12/21) Pain in left knee (10/12/21) Stiffness of left knee, not elsewhere classified (10/12/21) Other abnormalities of gait and mobility (10/12/21) Aftercare following joint replacement surgery (10/12/21) Visit Care Team Role Provider Type Sylvie Roy DO Family Provider Physician Primary Care Provider Specialty: [facility] Address: [address] [place] [address], [place], [address] Email: [email or web address] Scott Rodriguez MD Attending Provider Physician Referring Provider Specialty: Orthopedics Orthopedic Surgery Address: [address] [place] [address], [id number] Email: [email or web address] Plan Of Care PT-OP-T Assessment and Plan Start: 08/10/21 15:19 Freq: Status: Active Protocol: Document 10/12/21 10:33 AW (Rec: 10/12/21 12:28 AW [id number]) Physical Therapy Assessment Goals Four Impairment strength Market Development Analyst Goal (LTG) Pt will complete 5 Time Sit to fire loss prevention engineer 13 seconds or less as a measure of improved LE strength. LTG Duration 12/11/21 Three Impairment Left knee AROM limited to 10?- 92? Senior Living Goal (LTG) Pt to increase left knee AROM to 0?-120? to improve ability to perform transfers and ascend/descend stairs 09/22/21: 1-123deg AROM L knee. 10/03/21: 3-120 L knee AROM, 1 deg ext with QS, 3 deg was relaxed ROM. 10/12/21: 1-122 L knee AROM LTG Duration GOAL MET Two Impairment Pt ambulates 368' during 6 MWT Senior Living Goal (LTG) A walking speed of less than 1 .87 ft/sec is indicative of further functional decline in older adults. Pt to increase distance of 6 MWT to at least 709' without an assistive device to demonstrate increased functional mobility and improved independence. 10/12/21: Pt walks 590 feet with SPC on 6MWT for average gait speed of 0.5 m/s. Continue toward goal LTG Duration 12/11/21 One Impairment Pt does not have an appropriate home exercise program Short Term Goal (STG) Pt to be independent and compliant with an appropriate HEP 09/22/21: HEP: QS, SLR, STS, LAQ, scar and patella mobs. STG Duration Met Assessment Summary Assessment Pt reports clicking in left knee at terminal stance which is palpable in weight shifting but appears benign. Will continue to monitor. Pt was feeling low energy today but completed 6MWT with average gait speed of 0.5 m/s. Plan to continue working on quad strength and gait for improved community ambulation. Physical Therapy Plan Frequency and Duration Frequency of Treatment 2x/Week Duration of Treatment Two months Plan of Care Start Date 10/11/21 Plan of Care End Date 12/11/21 Therapeutic Interventions Therapeutic Interventions Aquatic Therapy,Balance Training,Gait Training,Home Exercise Program,Manual Therapy,Neuromuscular Re- education,Patient/Caregiver Education,Self-Care/Home Management,Soft Tissue Mobilization,Therapeutic Activities,Therapeutic Exercises Modalities Cold Pack/Ice Massage,Electric Stimulation,Hot Packs, Ultrasound Next Visit Focus/Plan Next Note Type Treatment Note Next Visit Plan Measure AROM, check TKE added last. REview HEP: progress: ROM, strengthening, flexibility Plan of Care Dates Plan of Care Start Date 10/11/21 Plan of Care End Date 12/11/21 Electronically Signed by: Brandi Peterson, PT 10/12/21 1314 If you are in agreement with this Plan of Care, please return a signed and dated copy. I have reviewed this Plan of Care and certify that the skilled therapy services above are required to meet the patient?s needs. Physician Signature Date Printed Name and Credentials Clinical Instructor Signature Printed Name and Credentials
--- NOTE | 2021-11-02 11:16 | PT.OTN ---
Current Diagnoses Unilateral primary osteoarthritis, right knee (11/02/21) Pain in left knee (11/02/21) Stiffness of left knee, not elsewhere classified (11/02/21) Other abnormalities of gait and mobility (11/02/21) Aftercare following joint replacement surgery (11/02/21) Physical Therapy Treatment Note PT-OP-A Visit Information Start: 08/10/21 15:19 Freq: Status: Active Protocol: Document 11/02/21 10:30 DCW (Rec: 11/02/21 11:16 DCW [id number]) Out-Patient Physical Therapy Visit Information Visit Information Visit Type Treatment Note Visit Start Time 10:30 Visit Stop Time 11:15 Total Visit Minutes 45 Visit Number 18 Number of SOFTWARE VALIDATION TECHNICIAN Visits 0 Evaluation Information Evaluation Date 08/10/21 PT-OP-B Current Condition Start: 08/10/21 15:19 Freq: Status: Active Protocol: Document 08/10/21 13:45 DCW (Rec: 08/10/21 15:36 DCW [id number]) Current Condition History of Current Condition Onset Date 08/02/21 Current Complaints Left knee pain, stiffness, and weakness s/p TKA History of Current Condition Pt is a 75 year old female presenting eight days s/p L TKA. Pt went home following her surgery, but unfortunately experienced three falls, slurred speech, and confusion. Pt was admitted to the hospital 08/05/21-08/08/21 with concerns of a TBI/CVA. Pt eventually diagnosed with a GI bleed/gastric ulcers and a UTI. Pt feeling much better now, and was able to get some PT while in the hospital and was able to get up and move around more. Notes her knee hurts horribly. Pt ambulates with a FWW, notes she does have a 4WW, but doesn't like to use it, feels it is too easy for the walker to get away from me. Has been able to do some of her HEP, including heel slides, quad/ glute sets, adductor squeeze, SLR, SAQ, and ankle pumps. Treatment Goals Patient/Caregiver Goals My goal is to do my six weeks of rehab and be good enough to be done with it. PT-OP-C Subjective Start: 08/10/21 15:19 Freq: Status: Active Protocol: Document 11/02/21 10:30 DCW (Rec: 11/02/21 11:16 DCW [id number]) OP-PT Subjective Patient Comments Patient Comments I'm feeling good, dare I say fantastic. I am still having pain in the knee though. PT-OP-E Functional Tests Start: 08/10/21 15:19 Freq: Status: Active Protocol: Document 08/10/21 13:45 DCW (Rec: 08/10/21 15:36 DCW [id number]) Functional Tests 6 Minute Walk Test Distance 368' Device Used FWW Comments 1.02 ft/sec PT-OP-J Posture/Palpation/Skin Start: 08/10/21 15:19 Freq: Status: Active Protocol: Document 08/10/21 13:45 DCW (Rec: 08/10/21 15:36 DCW [id number]) Skin Assessment Incisional Assessment Incision Appearance/Comments Surgical incision covered in dressing, appears C, D, I PT-OP-K Range of Motion Start: 08/10/21 15:19 Freq: Status: Active Protocol: Document 09/22/21 10:30 SP (Rec: 09/22/21 11:32 SP [id number]) Knee Goniometric Range of Motion Knee Left Knee ROM WFL No Patient Position Supine Flexion Active (degrees) 123 Extension Active (degrees) 1 Comments supine PT-OP-M Strength Start: 08/10/21 15:19 Freq: Status: Active Protocol: Document 08/10/21 13:45 DCW (Rec: 08/10/21 15:36 DCW [id number]) Knee Strength Knee Manual Muscle Testing Right Flexion (S2) 4+ Good+ Extension (L3) 4 Good Left Flexion (S2) 4 Good Extension (L3) 3- Fair- PT-OP-Q Treatments Start: 08/10/21 15:19 Freq: Status: Active Protocol: Document 11/02/21 10:30 DCW (Rec: 11/02/21 11:16 DCW [id number]) Cardio Equipment Recumbent Bicycle Duration (Minutes) 6 Resistance 6 Seat Position 3 Gym Equipment Shuttle Recovery SL squat Details improved knee alignment Resistance 37# Shuttle Recovery Platform Stable Reps/Time x10 Bilateral Squats Resistance 75# Shuttle Recovery Platform Stable Reps/Time 2x15 Therapeutic Exercises Standing Exercises TKE Side left Resistance TB #2 Reps/Minutes 2x10 Comments cued set up/ alignment 2 Standing Exercise Name Hip abduction Side left Resistance Lv 2 1 Standing Exercise Name Hip extension Side left Resistance Lv 2 Gait Training Gait Activity 2 Description AD-free gait assessment Manual Therapy Treatment Joint Mobilizations 2 Joint Patellar mobs Grade II Comments manual Taping lymphedema taping Body Location L lateral knee jt Treatment Focus lymph return Type of Tape Kinesio Tape Skin Inspection intact, baseball circumference swelling Comments anchored anterolateral prox tib/fib superior/ lateral 1>3 strands 15% tension. L anterolateral knee Body Location along adductor (distal> prox) Treatment Focus knee stability, painrelief Type of Tape Kinesio Tape Skin Inspection intact, noted Lateral knee swelling baseball circumference Comments 50% tension medial taping along pes ancerine and to mid quad. PT-OP-R Modalities Start: 08/10/21 15:19 Freq: Status: Active Protocol: Document 09/26/21 09:02 SP (Rec: 09/26/21 09:47 SP [id number]) Ultrasound Therapy Treatment Left Medial Proximal Leg Treatment Duration (minutes) 8 Patient Position Hooklying Applicator Size (cm2) 2 Frequency Setting (mHz) 1 Duty Cycle 50% Intensity Setting (w/cm2) 1.0 Comments good response, less pain over L medial knee (over pes ancerine). PT-OP-T Assessment and Plan Start: 08/10/21 15:19 Freq: Status: Active Protocol: Document 11/02/21 10:30 DCW (Rec: 11/02/21 11:16 DCW [id number]) Physical Therapy Assessment Goals Four Impairment strength Sizing Machine Tender Goal (LTG) Pt will complete 5 Time Sit to director of financial planning 13 seconds or less as a measure of improved LE strength. LTG Duration 12/11/21 Three Impairment Left knee AROM limited to 10?- 92? Halfway Goal (LTG) Pt to increase left knee AROM to 0?-120? to improve ability to perform transfers and ascend/descend stairs 09/22/21: 1-123deg AROM L knee. 10/03/21: 3-120 L knee AROM, 1 deg ext with QS, 3 deg was relaxed ROM. 10/12/21: 1-122 L knee AROM LTG Duration GOAL MET Two Impairment Pt ambulates 368' during 6 MWT Halfway Goal (LTG) A walking speed of less than 1 .87 ft/sec is indicative of further functional decline in older adults. Pt to increase distance of 6 MWT to at least 709' without an assistive device to demonstrate increased functional mobility and improved independence. 10/12/21: Pt walks 590 feet with SPC on 6MWT for average gait speed of 0.5 m/s. Continue toward goal LTG Duration 12/11/21 One Impairment Pt does not have an appropriate home exercise program Short Term Goal (STG) Pt to be independent and compliant with an appropriate HEP 09/22/21: HEP: QS, SLR, STS, LAQ, scar and patella mobs. STG Duration Met Assessment Summary Assessment Pt gait still antalgic without an AD, discussed pt still using cane when out walking, pt feels k-tape helps knee feel more secure. Physical Therapy Plan Frequency and Duration Frequency of Treatment 2x/Week Duration of Treatment Two months Plan of Care Start Date 10/11/21 Plan of Care End Date 12/11/21 Therapeutic Interventions Therapeutic Interventions Aquatic Therapy,Balance Training,Gait Training,Home Exercise Program,Manual Therapy,Neuromuscular Re- education,Patient/Caregiver Education,Self-Care/Home Management,Soft Tissue Mobilization,Therapeutic Activities,Therapeutic Exercises Modalities Cold Pack/Ice Massage,Electric Stimulation,Hot Packs, Ultrasound Next Visit Focus/Plan Next Note Type Treatment Note Next Visit Plan Review HEP: progress: ROM, strengthening, flexibility
--- NOTE | 2021-11-07 11:18 | PT.OTN ---
Current Diagnoses Unilateral primary osteoarthritis, right knee (11/07/21) Pain in left knee (11/07/21) Stiffness of left knee, not elsewhere classified (11/07/21) Other abnormalities of gait and mobility (11/07/21) Aftercare following joint replacement surgery (11/07/21) Physical Therapy Treatment Note PT-OP-A Visit Information Start: 08/10/21 15:19 Freq: Status: Active Protocol: Document 11/07/21 10:37 SP (Rec: 11/07/21 11:40 SP [id number]) Out-Patient Physical Therapy Visit Information Visit Information Visit Type Treatment Note Visit Note NARROW GAUGE BRAKEMAN late bringing pt back. Visit Start Time 10:37 Visit Stop Time 11:18 Total Visit Minutes 41 Visit Number 19 Number of NARROW GAUGE BRAKEMAN Visits 1 Evaluation Information Evaluation Date 08/10/21 PT-OP-B Current Condition Start: 08/10/21 15:19 Freq: Status: Active Protocol: Document 08/10/21 13:45 DCW (Rec: 08/10/21 15:36 DCW [id number]) Current Condition History of Current Condition Onset Date 08/02/21 Current Complaints Left knee pain, stiffness, and weakness s/p TKA History of Current Condition Pt is a 75 year old female presenting eight days s/p L TKA. Pt went home following her surgery, but unfortunately experienced three falls, slurred speech, and confusion. Pt was admitted to the hospital 08/05/21-08/08/21 with concerns of a TBI/CVA. Pt eventually diagnosed with a GI bleed/gastric ulcers and a UTI. Pt feeling much better now, and was able to get some PT while in the hospital and was able to get up and move around more. Notes her knee hurts horribly. Pt ambulates with a FWW, notes she does have a 4WW, but doesn't like to use it, feels it is too easy for the walker to get away from me. Has been able to do some of her HEP, including heel slides, quad/ glute sets, adductor squeeze, SLR, SAQ, and ankle pumps. Treatment Goals Patient/Caregiver Goals My goal is to do my six weeks of rehab and be good enough to be done with it. PT-OP-C Subjective Start: 08/10/21 15:19 Freq: Status: Active Protocol: Document 11/07/21 10:37 SP (Rec: 11/07/21 11:40 SP [id number]) OP-PT Subjective Patient Comments Patient Comments Pt reported saw Dr Rodriguez gave feedback to clicking not concerning, hopefully will go away with strengthening. She states K taping medial helpful support. Finger edema taping between 2 strands itchy so removed but want retaping today. She states not really having pain just knee/muscle tiring weakness. PT-OP-E Functional Tests Start: 08/10/21 15:19 Freq: Status: Active Protocol: Document 08/10/21 13:45 DCW (Rec: 08/10/21 15:36 DCW [id number]) Functional Tests 6 Minute Walk Test Distance 368' Device Used FWW Comments 1.02 ft/sec PT-OP-J Posture/Palpation/Skin Start: 08/10/21 15:19 Freq: Status: Active Protocol: Document 08/10/21 13:45 DCW (Rec: 08/10/21 15:36 DCW [id number]) Skin Assessment Incisional Assessment Incision Appearance/Comments Surgical incision covered in dressing, appears C, D, I PT-OP-K Range of Motion Start: 08/10/21 15:19 Freq: Status: Active Protocol: Document 09/22/21 10:30 SP (Rec: 09/22/21 11:32 SP [id number]) Knee Goniometric Range of Motion Knee Left Knee ROM WFL No Patient Position Supine Flexion Active (degrees) 123 Extension Active (degrees) 1 Comments supine PT-OP-M Strength Start: 08/10/21 15:19 Freq: Status: Active Protocol: Document 08/10/21 13:45 DCW (Rec: 08/10/21 15:36 DCW [id number]) Knee Strength Knee Manual Muscle Testing Right Flexion (S2) 4+ Good+ Extension (L3) 4 Good Left Flexion (S2) 4 Good Extension (L3) 3- Fair- PT-OP-Q Treatments Start: 08/10/21 15:19 Freq: Status: Active Protocol: Document 11/07/21 10:37 SP (Rec: 11/07/21 11:40 SP [id number]) Cardio Equipment Recumbent Bicycle Duration (Minutes) 5 Resistance 3 Seat Position 3 Other little sore initially then better Therapeutic Exercises Sitting Exercises sit to stands Sitting Exercise Name reviewed HEP Resistance arms across chest Equipment Used 19 table Reps/Minutes x5 reps (suggested 3x/day) Comments cued scoot forward, feet back, hip hinge up/slow ecc down sit, knees apart Standing Exercises TKE Standing Exercise Name reviewed HEP Side left Resistance TB #2 Reps/Minutes 2x10 Comments cued only L knee moving, trunk still 2 Standing Exercise Name Hip abduction- added to HEP Side bilateral Resistance Lv 2 ( TB #1 loop home) Reps/Minutes 2x5 1 Standing Exercise Name Hip extension- added to HEP Side bilateral Resistance Lv 2 ( TB #1 loop) Reps/Minutes 2x5 Comments cued tall, hip abd L during Other Exercises 1 Other Exercise Name Resisted side-stepping- added to HEP Resistance Red ( TB #2 loop form home) Equipment Used RUE on rail trunk/L hip abd support Reps/Minutes 20 ft x2 laps Comments cued upright posture, PPT, book on head, trail LE clearance Manual Therapy Treatment Taping lymphedema taping Body Location L lateral knee jt Treatment Focus lymph return Type of Tape Kinesio Tape Skin Inspection intact, baseball circumference swelling Comments anchored anterolateral prox femur to superior/ lateral tib /fib 1>3 strands 15% tension. L anterolateral knee Body Location along abductor (distal> prox) Treatment Focus knee stability, painrelief Type of Tape Kinesio Tape Skin Inspection intact, noted Lateral knee swelling baseball circumference Comments 50% tension medial taping along pes ancerine and to mid quad. PT-OP-R Modalities Start: 08/10/21 15:19 Freq: Status: Active Protocol: Document 09/26/21 09:02 SP (Rec: 09/26/21 09:47 SP [id number]) Ultrasound Therapy Treatment Left Medial Proximal Leg Treatment Duration (minutes) 8 Patient Position Hooklying Applicator Size (cm2) 2 Frequency Setting (mHz) 1 Duty Cycle 50% Intensity Setting (w/cm2) 1.0 Comments good response, less pain over L medial knee (over pes ancerine). PT-OP-T Assessment and Plan Start: 08/10/21 15:19 Freq: Status: Active Protocol: Document 11/07/21 10:37 SP (Rec: 11/07/21 11:40 SP [id number]) Physical Therapy Assessment Goals Four Impairment strength Dry House Tender Goal (LTG) Pt will complete 5 Time Sit to hard rock miner blasting 13 seconds or less as a measure of improved LE strength. LTG Duration 12/11/21 Three Impairment Left knee AROM limited to 10?- 92? Dry House Tender Goal (LTG) Pt to increase left knee AROM to 0?-120? to improve ability to perform transfers and ascend/descend stairs 09/22/21: 1-123deg AROM L knee. 10/03/21: 3-120 L knee AROM, 1 deg ext with QS, 3 deg was relaxed ROM. 10/12/21: 1-122 L knee AROM LTG Duration GOAL MET Two Impairment Pt ambulates 368' during 6 MWT Dry House Tender Goal (LTG) A walking speed of less than 1 .87 ft/sec is indicative of further functional decline in older adults. Pt to increase distance of 6 MWT to at least 709' without an assistive device to demonstrate increased functional mobility and improved independence. 10/12/21: Pt walks 590 feet with SPC on 6MWT for average gait speed of 0.5 m/s. Continue toward goal LTG Duration 12/11/21 One Impairment Pt does not have an appropriate home exercise program Short Term Goal (STG) Pt to be independent and compliant with an appropriate HEP 09/22/21: HEP: QS, SLR, STS, LAQ, scar and patella mobs. STG Duration Met Assessment Summary Assessment Pt improve gait w/SPC verbalized understanding quality gait importance. She improved L quad and hip abd fac throughout ther ex post cues for upright posture and RUE support during ext, abd against resistance. Provided HOs for standing HEP for self form/carryover. Physical Therapy Plan Frequency and Duration Frequency of Treatment 2x/Week Duration of Treatment Two months Plan of Care Start Date 10/11/21 Plan of Care End Date 12/11/21 Therapeutic Interventions Therapeutic Interventions Aquatic Therapy,Balance Training,Gait Training,Home Exercise Program,Manual Therapy,Neuromuscular Re- education,Patient/Caregiver Education,Self-Care/Home Management,Soft Tissue Mobilization,Therapeutic Activities,Therapeutic Exercises Modalities Cold Pack/Ice Massage,Electric Stimulation,Hot Packs, Ultrasound Next Visit Focus/Plan Next Note Type Treatment Note Next Visit Plan Recheck K taping. Review HEP. Next tx add: lunge ROM LLE on step for self progress. POC Progress: ROM, strengthening, flexibility
--- NOTE | 2021-11-15 12:26 | PT.OTN ---
Current Diagnoses Unilateral primary osteoarthritis, right knee (11/15/21) Pain in left knee (11/15/21) Stiffness of left knee, not elsewhere classified (11/15/21) Other abnormalities of gait and mobility (11/15/21) Aftercare following joint replacement surgery (11/15/21) Physical Therapy Treatment Note PT-OP-A Visit Information Start: 08/10/21 15:19 Freq: Status: Active Protocol: Document 11/15/21 09:41 AW (Rec: 11/15/21 10:31 AW [id number]) Out-Patient Physical Therapy Visit Information Visit Information Visit Type Treatment Note Visit Start Time 09:45 Visit Stop Time 10:30 Total Visit Minutes 45 Visit Number 20 Number of EMBALMER ASSISTANT Visits 0 Evaluation Information Evaluation Date 08/10/21 PT-OP-B Current Condition Start: 08/10/21 15:19 Freq: Status: Active Protocol: Document 08/10/21 13:45 DCW (Rec: 08/10/21 15:36 DCW [id number]) Current Condition History of Current Condition Onset Date 08/02/21 Current Complaints Left knee pain, stiffness, and weakness s/p TKA History of Current Condition Pt is a 75 year old female presenting eight days s/p L TKA. Pt went home following her surgery, but unfortunately experienced three falls, slurred speech, and confusion. Pt was admitted to the hospital 08/05/21-08/08/21 with concerns of a TBI/CVA. Pt eventually diagnosed with a GI bleed/gastric ulcers and a UTI. Pt feeling much better now, and was able to get some PT while in the hospital and was able to get up and move around more. Notes her knee hurts horribly. Pt ambulates with a FWW, notes she does have a 4WW, but doesn't like to use it, feels it is too easy for the walker to get away from me. Has been able to do some of her HEP, including heel slides, quad/ glute sets, adductor squeeze, SLR, SAQ, and ankle pumps. Treatment Goals Patient/Caregiver Goals My goal is to do my six weeks of rehab and be good enough to be done with it. PT-OP-C Subjective Start: 08/10/21 15:19 Freq: Status: Active Protocol: Document 11/15/21 09:41 AW (Rec: 11/15/21 10:31 AW [id number]) OP-PT Subjective Patient Comments Patient Comments Left knee is bothering me today and I didn't sleep as well last night. PT-OP-E Functional Tests Start: 08/10/21 15:19 Freq: Status: Active Protocol: Document 08/10/21 13:45 DCW (Rec: 08/10/21 15:36 DCW [id number]) Functional Tests 6 Minute Walk Test Distance 368' Device Used FWW Comments 1.02 ft/sec PT-OP-J Posture/Palpation/Skin Start: 08/10/21 15:19 Freq: Status: Active Protocol: Document 08/10/21 13:45 DCW (Rec: 08/10/21 15:36 DCW [id number]) Skin Assessment Incisional Assessment Incision Appearance/Comments Surgical incision covered in dressing, appears C, D, I PT-OP-K Range of Motion Start: 08/10/21 15:19 Freq: Status: Active Protocol: Document 09/22/21 10:30 SP (Rec: 09/22/21 11:32 SP [id number]) Knee Goniometric Range of Motion Knee Left Knee ROM WFL No Patient Position Supine Flexion Active (degrees) 123 Extension Active (degrees) 1 Comments supine PT-OP-M Strength Start: 08/10/21 15:19 Freq: Status: Active Protocol: Document 08/10/21 13:45 DCW (Rec: 08/10/21 15:36 DCW [id number]) Knee Strength Knee Manual Muscle Testing Right Flexion (S2) 4+ Good+ Extension (L3) 4 Good Left Flexion (S2) 4 Good Extension (L3) 3- Fair- PT-OP-Q Treatments Start: 08/10/21 15:19 Freq: Status: Active Protocol: Document 11/15/21 09:41 AW (Rec: 11/15/21 10:31 AW [id number]) Cardio Equipment Recumbent Bicycle Duration (Minutes) 5 Resistance 3 Seat Position 3 Other no pain today Gym Equipment Shuttle Recovery SL squat Details improved knee alignment Resistance 37# Shuttle Recovery Platform Stable Reps/Time 2x10 Bilateral Squats Resistance 75# Shuttle Recovery Platform Stable,Unstable Reps/Time 2x15 - stable, unstable Therapeutic Exercises Sitting Exercises sit to stands Sitting Exercise Name reviewed HEP Resistance arms across chest Equipment Used 19 table Reps/Minutes 3x5 reps Comments cued scoot forward, feet back, hip hinge up/slow ecc down sit, knees apart Standing Exercises step up Standing Exercise Name step up - fwd Side left Resistance 4 step, 6 step Equipment Used R rail Reps/Minutes 1x10; 1x10 Comments cued weight over stance leg, glute drive; HEP TKE Standing Exercise Name reviewed HEP Side left Resistance TB #2 Reps/Minutes 2x10 Comments cued only L knee moving, trunk still Gait Training Gait Activity stairs Description stairs Device Used uni or B rail Level of Assistance SBA Surface 4 step Comments Step over step patterning with continued cues for weight over stance leg, glute drive. Uni rail ascending, B rails and increased instability descending, Manual Therapy Treatment Taping lymphedema taping Body Location L lateral knee jt Treatment Focus lymph return Type of Tape Kinesio Tape Skin Inspection intact, baseball circumference swelling Comments anchored anterolateral prox femur to superior/ lateral tib /fib 1>3 strands 15% tension. L anterolateral knee Body Location along abductor (distal> prox) Treatment Focus knee stability, painrelief Type of Tape Kinesio Tape Skin Inspection intact, noted Lateral knee swelling baseball circumference Comments 50% tension medial taping along pes ancerine and to mid quad. PT-OP-R Modalities Start: 08/10/21 15:19 Freq: Status: Active Protocol: Document 09/26/21 09:02 SP (Rec: 09/26/21 09:47 SP [id number]) Ultrasound Therapy Treatment Left Medial Proximal Leg Treatment Duration (minutes) 8 Patient Position Hooklying Applicator Size (cm2) 2 Frequency Setting (mHz) 1 Duty Cycle 50% Intensity Setting (w/cm2) 1.0 Comments good response, less pain over L medial knee (over pes ancerine). PT-OP-T Assessment and Plan Start: 08/10/21 15:19 Freq: Status: Active Protocol: Document 11/15/21 09:41 AW (Rec: 11/15/21 10:31 AW [id number]) Physical Therapy Assessment Goals Four Impairment strength Shell Mold Bonding Machine Operator Goal (LTG) Pt will complete 5 Time Sit to roading engineer 13 seconds or less as a measure of improved LE strength. LTG Duration 12/11/21 Three Impairment Left knee AROM limited to 10?- 92? Senior Care Goal (LTG) Pt to increase left knee AROM to 0?-120? to improve ability to perform transfers and ascend/descend stairs 09/22/21: 1-123deg AROM L knee. 10/03/21: 3-120 L knee AROM, 1 deg ext with QS, 3 deg was relaxed ROM. 10/12/21: 1-122 L knee AROM LTG Duration GOAL MET Two Impairment Pt ambulates 368' during 6 MWT Senior Care Goal (LTG) A walking speed of less than 1 .87 ft/sec is indicative of further functional decline in older adults. Pt to increase distance of 6 MWT to at least 709' without an assistive device to demonstrate increased functional mobility and improved independence. 10/12/21: Pt walks 590 feet with SPC on 6MWT for average gait speed of 0.5 m/s. Continue toward goal LTG Duration 12/11/21 One Impairment Pt does not have an appropriate home exercise program Short Term Goal (STG) Pt to be independent and compliant with an appropriate HEP 09/22/21: HEP: QS, SLR, STS, LAQ, scar and patella mobs. STG Duration Met Assessment Summary Assessment Trialed stair management with reciprocating pattern today and pt was able to manage 4 steps with unilateral rail up and bilateral rails down. She reported feeling less stable with descent. Added step up to HEP and plan to revisit stairs at next appointment. Physical Therapy Plan Frequency and Duration Frequency of Treatment 2x/Week Duration of Treatment Two months Plan of Care Start Date 10/11/21 Plan of Care End Date 12/11/21 Therapeutic Interventions Therapeutic Interventions Aquatic Therapy,Balance Training,Gait Training,Home Exercise Program,Manual Therapy,Neuromuscular Re- education,Patient/Caregiver Education,Self-Care/Home Management,Soft Tissue Mobilization,Therapeutic Activities,Therapeutic Exercises Modalities Cold Pack/Ice Massage,Electric Stimulation,Hot Packs, Ultrasound Next Visit Focus/Plan Next Note Type Treatment Note Next Visit Plan Stairs Next tx add: lunge ROM LLE on step for self progress. POC Progress: ROM, strengthening, flexibility
--- NOTE | 2021-11-22 11:16 | PT.OTN ---
Current Diagnoses Unilateral primary osteoarthritis, right knee (11/22/21) Pain in left knee (11/22/21) Stiffness of left knee, not elsewhere classified (11/22/21) Other abnormalities of gait and mobility (11/22/21) Aftercare following joint replacement surgery (11/22/21) Physical Therapy Treatment Note PT-OP-A Visit Information Start: 08/10/21 15:19 Freq: Status: Active Protocol: Document 11/22/21 08:57 AW (Rec: 11/22/21 11:16 AW [id number]) Out-Patient Physical Therapy Visit Information Visit Information Visit Type Treatment Note Visit Start Time 10:30 Visit Stop Time 11:15 Total Visit Minutes 45 Visit Number 21 Number of SALES MARKETING COORDINATOR Visits 0 Evaluation Information Evaluation Date 08/10/21 PT-OP-B Current Condition Start: 08/10/21 15:19 Freq: Status: Active Protocol: Document 08/10/21 13:45 DCW (Rec: 08/10/21 15:36 DCW [id number]) Current Condition History of Current Condition Onset Date 08/02/21 Current Complaints Left knee pain, stiffness, and weakness s/p TKA History of Current Condition Pt is a 75 year old female presenting eight days s/p L TKA. Pt went home following her surgery, but unfortunately experienced three falls, slurred speech, and confusion. Pt was admitted to the hospital 08/05/21-08/08/21 with concerns of a TBI/CVA. Pt eventually diagnosed with a GI bleed/gastric ulcers and a UTI. Pt feeling much better now, and was able to get some PT while in the hospital and was able to get up and move around more. Notes her knee hurts horribly. Pt ambulates with a FWW, notes she does have a 4WW, but doesn't like to use it, feels it is too easy for the walker to get away from me. Has been able to do some of her HEP, including heel slides, quad/ glute sets, adductor squeeze, SLR, SAQ, and ankle pumps. Treatment Goals Patient/Caregiver Goals My goal is to do my six weeks of rehab and be good enough to be done with it. PT-OP-C Subjective Start: 08/10/21 15:19 Freq: Status: Active Protocol: Document 11/22/21 08:57 AW (Rec: 11/22/21 11:16 AW [id number]) OP-PT Subjective Patient Comments Patient Comments Feeling good today. No new complaints. PT-OP-E Functional Tests Start: 08/10/21 15:19 Freq: Status: Active Protocol: Document 08/10/21 13:45 DCW (Rec: 08/10/21 15:36 DCW [id number]) Functional Tests 6 Minute Walk Test Distance 368' Device Used FWW Comments 1.02 ft/sec PT-OP-J Posture/Palpation/Skin Start: 08/10/21 15:19 Freq: Status: Active Protocol: Document 08/10/21 13:45 DCW (Rec: 08/10/21 15:36 DCW [id number]) Skin Assessment Incisional Assessment Incision Appearance/Comments Surgical incision covered in dressing, appears C, D, I PT-OP-K Range of Motion Start: 08/10/21 15:19 Freq: Status: Active Protocol: Document 09/22/21 10:30 SP (Rec: 09/22/21 11:32 SP [id number]) Knee Goniometric Range of Motion Knee Left Knee ROM WFL No Patient Position Supine Flexion Active (degrees) 123 Extension Active (degrees) 1 Comments supine PT-OP-M Strength Start: 08/10/21 15:19 Freq: Status: Active Protocol: Document 08/10/21 13:45 DCW (Rec: 08/10/21 15:36 DCW [id number]) Knee Strength Knee Manual Muscle Testing Right Flexion (S2) 4+ Good+ Extension (L3) 4 Good Left Flexion (S2) 4 Good Extension (L3) 3- Fair- PT-OP-Q Treatments Start: 08/10/21 15:19 Freq: Status: Active Protocol: Document 11/22/21 08:57 AW (Rec: 11/22/21 11:16 AW [id number]) Cardio Equipment Recumbent Bicycle Duration (Minutes) 5 Resistance 3 Seat Position 3 Other no pain today Gym Equipment Shuttle Recovery SL squat Details improved knee alignment Resistance 37# Shuttle Recovery Platform Stable Reps/Time 2x10 Bilateral Squats Resistance 75# Shuttle Recovery Platform Unstable Reps/Time 2x15 Therapeutic Exercises Sitting Exercises sit to stands Sitting Exercise Name reviewed HEP Resistance arms across chest Equipment Used mesh chair Reps/Minutes 3x5 reps Comments 19.7 sec, 17.5 sec Standing Exercises step up Standing Exercise Name step up - fwd only. attempted lateral but pt reported twisting at knee Side bilateral Resistance 4 step, 6 step Equipment Used R rail Reps/Minutes 1x10; 1x10 Comments cued weight over stance leg, glute drive; HEP Gait Training Gait Activity stairs Description stairs Device Used uni or B rail Level of Assistance SBA Surface 4 step; 6 step Comments Step over step patterning with continued cues for weight over stance leg, glute drive. Uni rail ascending, B rails and increased instability descending, 2 Description AD-free gait assessment Device Used none Level of Assistance SBA Surface carpet, tile Distance/Duration 1 min x 3 Treatment Focus step length, stance time Manual Therapy Treatment Taping lymphedema taping Body Location L lateral knee jt Treatment Focus lymph return Type of Tape Kinesio Tape Skin Inspection intact, baseball circumference swelling Comments anchored anterolateral prox femur to superior/ lateral tib /fib 1>3 strands 15% tension. L anterolateral knee Body Location along abductor (distal> prox) Treatment Focus knee stability, painrelief Type of Tape Kinesio Tape Skin Inspection intact, noted Lateral knee swelling baseball circumference Comments 50% tension medial taping along pes ancerine and to mid quad. PT-OP-R Modalities Start: 08/10/21 15:19 Freq: Status: Active Protocol: Document 09/26/21 09:02 SP (Rec: 09/26/21 09:47 SP [id number]) Ultrasound Therapy Treatment Left Medial Proximal Leg Treatment Duration (minutes) 8 Patient Position Hooklying Applicator Size (cm2) 2 Frequency Setting (mHz) 1 Duty Cycle 50% Intensity Setting (w/cm2) 1.0 Comments good response, less pain over L medial knee (over pes ancerine). PT-OP-T Assessment and Plan Start: 08/10/21 15:19 Freq: Status: Active Protocol: Document 11/22/21 08:57 AW (Rec: 11/22/21 11:16 AW [id number]) Physical Therapy Assessment Goals Four Impairment strength Snf Goal (LTG) Pt will complete 5 Time Sit to insolvency practitioner 13 seconds or less as a measure of improved LE strength. LTG Duration 12/11/21 Three Impairment Left knee AROM limited to 10?- 92? Bellstand Attendant Goal (LTG) Pt to increase left knee AROM to 0?-120? to improve ability to perform transfers and ascend/descend stairs 09/22/21: 1-123deg AROM L knee. 10/03/21: 3-120 L knee AROM, 1 deg ext with QS, 3 deg was relaxed ROM. 10/12/21: 1-122 L knee AROM LTG Duration GOAL MET Two Impairment Pt ambulates 368' during 6 MWT Bellstand Attendant Goal (LTG) A walking speed of less than 1 .87 ft/sec is indicative of further functional decline in older adults. Pt to increase distance of 6 MWT to at least 709' without an assistive device to demonstrate increased functional mobility and improved independence. 10/12/21: Pt walks 590 feet with SPC on 6MWT for average gait speed of 0.5 .m/s. Continue toward goal LTG Duration 12/11/21 One Impairment Pt does not have an appropriate home exercise program Short Term Goal (STG) Pt to be independent and compliant with an appropriate HEP 09/22/21: HEP: QS, SLR, STS, LAQ, scar and patella mobs. STG Duration Met Assessment Summary Assessment Continued work on stairs today . Pt had decreased tolerance today but was able to manage step over step pattern in descent on 4 and 6 stairs. Plan to assess 6MWT without AD next session. Physical Therapy Plan Frequency and Duration Frequency of Treatment 2x/Week Duration of Treatment Two months Plan of Care Start Date 10/11/21 Plan of Care End Date 12/11/21 Therapeutic Interventions Therapeutic Interventions Aquatic Therapy,Balance Training,Gait Training,Home Exercise Program,Manual Therapy,Neuromuscular Re- education,Patient/Caregiver Education,Self-Care/Home Management,Soft Tissue Mobilization,Therapeutic Activities,Therapeutic Exercises Modalities Cold Pack/Ice Massage,Electric Stimulation,Hot Packs, Ultrasound Next Visit Focus/Plan Next Note Type Treatment Note Next Visit Plan Assess 6MWT without AD FIRST. Stairs. Progress: ROM, strengthening, flexibility
--- NOTE | 2021-11-28 11:16 | PT.OTN ---
Current Diagnoses Unilateral primary osteoarthritis, right knee (11/28/21) Pain in left knee (11/28/21) Stiffness of left knee, not elsewhere classified (11/28/21) Other abnormalities of gait and mobility (11/28/21) Aftercare following joint replacement surgery (11/28/21) Physical Therapy Treatment Note PT-OP-A Visit Information Start: 08/10/21 15:19 Freq: Status: Active Protocol: Document 11/28/21 10:30 DCW (Rec: 11/28/21 11:16 DCW [id number]) Out-Patient Physical Therapy Visit Information Visit Information Visit Type Treatment Note Visit Start Time 10:30 Visit Stop Time 11:15 Total Visit Minutes 45 Visit Number 22 Number of PAINTING CONTRACTOR Visits 0 Evaluation Information Evaluation Date 08/10/21 PT-OP-B Current Condition Start: 08/10/21 15:19 Freq: Status: Active Protocol: Document 08/10/21 13:45 DCW (Rec: 08/10/21 15:36 DCW [id number]) Current Condition History of Current Condition Onset Date 08/02/21 Current Complaints Left knee pain, stiffness, and weakness s/p TKA History of Current Condition Pt is a 75 year old female presenting eight days s/p L TKA. Pt went home following her surgery, but unfortunately experienced three falls, slurred speech, and confusion. Pt was admitted to the hospital 08/05/21-08/08/21 with concerns of a TBI/CVA. Pt eventually diagnosed with a GI bleed/gastric ulcers and a UTI. Pt feeling much better now, and was able to get some PT while in the hospital and was able to get up and move around more. Notes her knee hurts horribly. Pt ambulates with a FWW, notes she does have a 4WW, but doesn't like to use it, feels it is too easy for the walker to get away from me. Has been able to do some of her HEP, including heel slides, quad/ glute sets, adductor squeeze, SLR, SAQ, and ankle pumps. Treatment Goals Patient/Caregiver Goals My goal is to do my six weeks of rehab and be good enough to be done with it. PT-OP-C Subjective Start: 08/10/21 15:19 Freq: Status: Active Protocol: Document 11/28/21 10:30 DCW (Rec: 11/28/21 11:16 DCW [id number]) OP-PT Subjective Patient Comments Patient Comments It feels good, but it still feels a little loose. PT-OP-E Functional Tests Start: 08/10/21 15:19 Freq: Status: Active Protocol: Document 08/10/21 13:45 DCW (Rec: 08/10/21 15:36 DCW [id number]) Functional Tests 6 Minute Walk Test Distance 368' Device Used FWW Comments 1.02 ft/sec PT-OP-J Posture/Palpation/Skin Start: 08/10/21 15:19 Freq: Status: Active Protocol: Document 08/10/21 13:45 DCW (Rec: 08/10/21 15:36 DCW [id number]) Skin Assessment Incisional Assessment Incision Appearance/Comments Surgical incision covered in dressing, appears C, D, I PT-OP-K Range of Motion Start: 08/10/21 15:19 Freq: Status: Active Protocol: Document 09/22/21 10:30 SP (Rec: 09/22/21 11:32 SP [id number]) Knee Goniometric Range of Motion Knee Left Knee ROM WFL No Patient Position Supine Flexion Active (degrees) 123 Extension Active (degrees) 1 Comments supine PT-OP-M Strength Start: 08/10/21 15:19 Freq: Status: Active Protocol: Document 08/10/21 13:45 DCW (Rec: 08/10/21 15:36 DCW [id number]) Knee Strength Knee Manual Muscle Testing Right Flexion (S2) 4+ Good+ Extension (L3) 4 Good Left Flexion (S2) 4 Good Extension (L3) 3- Fair- PT-OP-Q Treatments Start: 08/10/21 15:19 Freq: Status: Active Protocol: Document 11/28/21 10:30 DCW (Rec: 11/28/21 11:16 DCW [id number]) Cardio Equipment Recumbent Bicycle Duration (Minutes) 5 Resistance 3 Seat Position 3 Other no pain today Gym Equipment Shuttle Recovery SL squat Resistance 37# Shuttle Recovery Platform Stable Reps/Time 2x10 Bilateral Squats Resistance 75# Shuttle Recovery Platform Unstable Reps/Time 2x10 Therapeutic Exercises Sitting Exercises sit to stands Sitting Exercise Name reviewed HEP Resistance arms across chest Equipment Used mesh chair Reps/Minutes 3x5 reps Standing Exercises step up Standing Exercise Name step up - fwd Side bilateral Resistance 6 step Equipment Used R rail Reps/Minutes 2x10 Gait Training Gait Activity stairs Description stairs Device Used uni or B rail Level of Assistance SBA Surface 6 step Comments Step over step patterning with continued cues for weight over stance leg, glute drive. Uni rail ascending, B rails and increased instability descending, 2 Description AD-free gait assessment Device Used none Level of Assistance SBA Surface carpet, tile Distance/Duration 5 min Treatment Focus step length, stance time Manual Therapy Treatment Joint Mobilizations 2 Joint Patellar mobs Grade II Comments manual 1 Joint Tib-femoral Direction P->A Grade III Body Position Hooklying Taping lymphedema taping Body Location L lateral knee jt Treatment Focus lymph return Type of Tape Kinesio Tape Skin Inspection intact, baseball circumference swelling Comments anchored anterolateral prox femur to superior/ lateral tib /fib 1>3 strands 15% tension. L anterolateral knee Body Location along adductor (distal> prox) Treatment Focus knee stability, painrelief Type of Tape Kinesio Tape Skin Inspection intact, noted Lateral knee swelling baseball circumference Comments 50% tension medial taping along pes ancerine and to mid quad. PT-OP-R Modalities Start: 08/10/21 15:19 Freq: Status: Active Protocol: Document 09/26/21 09:02 SP (Rec: 09/26/21 09:47 SP [id number]) Ultrasound Therapy Treatment Left Medial Proximal Leg Treatment Duration (minutes) 8 Patient Position Hooklying Applicator Size (cm2) 2 Frequency Setting (mHz) 1 Duty Cycle 50% Intensity Setting (w/cm2) 1.0 Comments good response, less pain over L medial knee (over pes ancerine). PT-OP-T Assessment and Plan Start: 08/10/21 15:19 Freq: Status: Active Protocol: Document 11/28/21 10:30 DCW (Rec: 11/28/21 11:16 DCW [id number]) Physical Therapy Assessment Goals Four Impairment strength Sew Out Operator Goal (LTG) Pt will complete 5 Time Sit to sports marketing specialist 13 seconds or less as a measure of improved LE strength. LTG Duration 12/11/21 Three Impairment Left knee AROM limited to 10?- 92? Sew Out Operator Goal (LTG) Pt to increase left knee AROM to 0?-120? to improve ability to perform transfers and ascend/descend stairs 09/22/21: 1-123deg AROM L knee. 10/03/21: 3-120 L knee AROM, 1 deg ext with QS, 3 deg was relaxed ROM. 10/12/21: 1-122 L knee AROM LTG Duration GOAL MET Two Impairment Pt ambulates 368' during 6 MWT Sew Out Operator Goal (LTG) A walking speed of less than 1 .87 ft/sec is indicative of further functional decline in older adults. Pt to increase distance of 6 MWT to at least 709' without an assistive device to demonstrate increased functional mobility and improved independence. 10/12/21: Pt walks 590 feet with SPC on 6MWT for average gait speed of 0.5 .m/s. Continue toward goal LTG Duration 12/11/21 One Impairment Pt does not have an appropriate home exercise program Short Term Goal (STG) Pt to be independent and compliant with an appropriate HEP 09/22/21: HEP: QS, SLR, STS, LAQ, scar and patella mobs. STG Duration Met Assessment Summary Assessment Pt continuing to progress, doing better with stairs, increased tolerance of AD-free ambulation. Physical Therapy Plan Frequency and Duration Frequency of Treatment 2x/Week Duration of Treatment Two months Plan of Care Start Date 10/11/21 Plan of Care End Date 12/11/21 Therapeutic Interventions Therapeutic Interventions Aquatic Therapy,Balance Training,Gait Training,Home Exercise Program,Manual Therapy,Neuromuscular Re- education,Patient/Caregiver Education,Self-Care/Home Management,Soft Tissue Mobilization,Therapeutic Activities,Therapeutic Exercises Modalities Cold Pack/Ice Massage,Electric Stimulation,Hot Packs, Ultrasound Next Visit Focus/Plan Next Note Type Treatment Note Next Visit Plan Assess 6MWT without AD FIRST. Stairs. Progress: ROM, strengthening, flexibility
--- NOTE | 2021-11-30 12:16 | PT.OTN ---
Current Diagnoses Unilateral primary osteoarthritis, right knee (11/30/21) Pain in left knee (11/30/21) Stiffness of left knee, not elsewhere classified (11/30/21) Other abnormalities of gait and mobility (11/30/21) Aftercare following joint replacement surgery (11/30/21) Physical Therapy Treatment Note PT-OP-A Visit Information Start: 08/10/21 15:19 Freq: Status: Active Protocol: Document 11/30/21 08:54 AW (Rec: 11/30/21 10:29 AW [id number]) Out-Patient Physical Therapy Visit Information Visit Information Visit Type Treatment Note Visit Start Time 09:45 Visit Stop Time 10:30 Total Visit Minutes 45 Visit Number 23 Number of TEMPLE MEAT CUTTER Visits 0 Evaluation Information Evaluation Date 08/10/21 PT-OP-B Current Condition Start: 08/10/21 15:19 Freq: Status: Active Protocol: Document 08/10/21 13:45 DCW (Rec: 08/10/21 15:36 DCW [id number]) Current Condition History of Current Condition Onset Date 08/02/21 Current Complaints Left knee pain, stiffness, and weakness s/p TKA History of Current Condition Pt is a 75 year old female presenting eight days s/p L TKA. Pt went home following her surgery, but unfortunately experienced three falls, slurred speech, and confusion. Pt was admitted to the hospital 08/05/21-08/08/21 with concerns of a TBI/CVA. Pt eventually diagnosed with a GI bleed/gastric ulcers and a UTI. Pt feeling much better now, and was able to get some PT while in the hospital and was able to get up and move around more. Notes her knee hurts horribly. Pt ambulates with a FWW, notes she does have a 4WW, but doesn't like to use it, feels it is too easy for the walker to get away from me. Has been able to do some of her HEP, including heel slides, quad/ glute sets, adductor squeeze, SLR, SAQ, and ankle pumps. Treatment Goals Patient/Caregiver Goals My goal is to do my six weeks of rehab and be good enough to be done with it. PT-OP-C Subjective Start: 08/10/21 15:19 Freq: Status: Active Protocol: Document 11/30/21 08:54 AW (Rec: 11/30/21 10:29 AW [id number]) OP-PT Subjective Patient Comments Patient Comments I forgot my cane. PT-OP-E Functional Tests Start: 08/10/21 15:19 Freq: Status: Active Protocol: Document 08/10/21 13:45 DCW (Rec: 08/10/21 15:36 DCW [id number]) Functional Tests 6 Minute Walk Test Distance 368' Device Used FWW Comments 1.02 ft/sec PT-OP-J Posture/Palpation/Skin Start: 08/10/21 15:19 Freq: Status: Active Protocol: Document 08/10/21 13:45 DCW (Rec: 08/10/21 15:36 DCW [id number]) Skin Assessment Incisional Assessment Incision Appearance/Comments Surgical incision covered in dressing, appears C, D, I PT-OP-K Range of Motion Start: 08/10/21 15:19 Freq: Status: Active Protocol: Document 09/22/21 10:30 SP (Rec: 09/22/21 11:32 SP [id number]) Knee Goniometric Range of Motion Knee Left Knee ROM WFL No Patient Position Supine Flexion Active (degrees) 123 Extension Active (degrees) 1 Comments supine PT-OP-M Strength Start: 08/10/21 15:19 Freq: Status: Active Protocol: Document 08/10/21 13:45 DCW (Rec: 08/10/21 15:36 DCW [id number]) Knee Strength Knee Manual Muscle Testing Right Flexion (S2) 4+ Good+ Extension (L3) 4 Good Left Flexion (S2) 4 Good Extension (L3) 3- Fair- PT-OP-Q Treatments Start: 08/10/21 15:19 Freq: Status: Active Protocol: Document 11/30/21 08:54 AW (Rec: 11/30/21 10:29 AW [id number]) Cardio Equipment Recumbent Bicycle Duration (Minutes) 5 Resistance 3 Seat Position 3 Other no pain today Therapeutic Exercises Sitting Exercises sit to stands Sitting Exercise Name reviewed HEP Resistance arms across chest Equipment Used mesh chair Reps/Minutes 3x5 reps Standing Exercises SLS Standing Exercise Name SLS - modified Equipment Used say disc under raised foot, rail prn Reps/Minutes 15-20 sec trials Comments PT perturbed disc during last trials; pt able to withstand step up Standing Exercise Name step up - fwd Side bilateral Resistance 6 step; attempted 8 step but pt c/o inc pain Equipment Used R rail Reps/Minutes 2x10 Gait Training Gait Activity stairs Description stairs Device Used uni or B rail Level of Assistance SBA Surface 6 step Comments Step over step patterning with continued cues for weight over stance leg, glute drive. Uni rail ascending, B rails and increased instability descending, 2 Description 6MWT Device Used none Level of Assistance SBA Surface carpet, tile Distance/Duration 6 min/682 feet Treatment Focus fwd translation, decreased lateral lean Comments 2 brief standing rest breaks and one seated rest break. First lap was uninterrupted and pt had average gait speed of 0.65 m/s Manual Therapy Treatment Joint Mobilizations 2 Joint Patellar mobs Grade II Comments manual 1 Joint Tib-femoral Direction P->A Grade III Body Position Hooklying PT-OP-R Modalities Start: 08/10/21 15:19 Freq: Status: Active Protocol: Document 09/26/21 09:02 SP (Rec: 09/26/21 09:47 SP [id number]) Ultrasound Therapy Treatment Left Medial Proximal Leg Treatment Duration (minutes) 8 Patient Position Hooklying Applicator Size (cm2) 2 Frequency Setting (mHz) 1 Duty Cycle 50% Intensity Setting (w/cm2) 1.0 Comments good response, less pain over L medial knee (over pes ancerine). PT-OP-T Assessment and Plan Start: 08/10/21 15:19 Freq: Status: Active Protocol: Document 11/30/21 08:54 AW (Rec: 11/30/21 10:29 AW [id number]) Physical Therapy Assessment Goals Four Impairment strength Mcc Goal (LTG) Pt will complete 5 Time Sit to amusement ride inspector 13 seconds or less as a measure of improved LE strength. LTG Duration 12/11/21 Three Impairment Left knee AROM limited to 10?- 92? Beef Skinner Goal (LTG) Pt to increase left knee AROM to 0?-120? to improve ability to perform transfers and ascend/descend stairs 09/22/21: 1-123deg AROM L knee. 10/03/21: 3-120 L knee AROM, 1 deg ext with QS, 3 deg was relaxed ROM. 10/12/21: 1-122 L knee AROM LTG Duration GOAL MET Two Impairment Pt ambulates 368' during 6 MWT Beef Skinner Goal (LTG) A walking speed of less than 1 .87 ft/sec is indicative of further functional decline in older adults. Pt to increase distance of 6 MWT to at least 709' without an assistive device to demonstrate increased functional mobility and improved independence. 10/12/21: Pt walks 590 feet with SPC on 6MWT for average gait speed of 0.5 .m/s. Continue toward goal LTG Duration 12/11/21 One Impairment Pt does not have an appropriate home exercise program Short Term Goal (STG) Pt to be independent and compliant with an appropriate HEP 09/22/21: HEP: QS, SLR, STS, LAQ, scar and patella mobs. STG Duration Met Assessment Summary Assessment Assessed 6MWT without AD. Pt walked 682 feet in 6 minutes with standing and sitting rest breaks. First lap was uninterrupted with average gait speed of 0.65 m/s. Gait deviations predictably increased with distance. Plan to continue gait training and stair training. Physical Therapy Plan Frequency and Duration Frequency of Treatment 2x/Week Duration of Treatment Two months Plan of Care Start Date 10/11/21 Plan of Care End Date 12/11/21 Therapeutic Interventions Therapeutic Interventions Aquatic Therapy,Balance Training,Gait Training,Home Exercise Program,Manual Therapy,Neuromuscular Re- education,Patient/Caregiver Education,Self-Care/Home Management,Soft Tissue Mobilization,Therapeutic Activities,Therapeutic Exercises Modalities Cold Pack/Ice Massage,Electric Stimulation,Hot Packs, Ultrasound Next Visit Focus/Plan Next Note Type Treatment Note Next Visit Plan Stairs. Progress: ROM, strengthening, flexibility
--- NOTE | 2021-12-13 11:59 | PT.OTN ---
Current Diagnoses Unilateral primary osteoarthritis, right knee (12/13/21) Pain in left knee (12/13/21) Stiffness of left knee, not elsewhere classified (12/13/21) Other abnormalities of gait and mobility (12/13/21) Aftercare following joint replacement surgery (12/13/21) Physical Therapy Treatment Note PT-OP-A Visit Information Start: 08/10/21 15:19 Freq: Status: Active Protocol: Document 12/13/21 08:59 AW (Rec: 12/13/21 10:34 AW [id number]) Out-Patient Physical Therapy Visit Information Visit Information Visit Type Progress Note Visit Start Time 09:59 Visit Stop Time 10:30 Total Visit Minutes 31 Visit Number 24 Number of PACKAGE REINSPECTOR Visits 0 Evaluation Information Evaluation Date 08/10/21 PT-OP-B Current Condition Start: 08/10/21 15:19 Freq: Status: Active Protocol: Document 08/10/21 13:45 DCW (Rec: 08/10/21 15:36 DCW [id number]) Current Condition History of Current Condition Onset Date 08/02/21 Current Complaints Left knee pain, stiffness, and weakness s/p TKA History of Current Condition Pt is a 75 year old female presenting eight days s/p L TKA. Pt went home following her surgery, but unfortunately experienced three falls, slurred speech, and confusion. Pt was admitted to the hospital 08/05/21-08/08/21 with concerns of a TBI/CVA. Pt eventually diagnosed with a GI bleed/gastric ulcers and a UTI. Pt feeling much better now, and was able to get some PT while in the hospital and was able to get up and move around more. Notes her knee hurts horribly. Pt ambulates with a FWW, notes she does have a 4WW, but doesn't like to use it, feels it is too easy for the walker to get away from me. Has been able to do some of her HEP, including heel slides, quad/ glute sets, adductor squeeze, SLR, SAQ, and ankle pumps. Treatment Goals Patient/Caregiver Goals My goal is to do my six weeks of rehab and be good enough to be done with it. PT-OP-C Subjective Start: 08/10/21 15:19 Freq: Status: Active Protocol: Document 12/13/21 08:59 AW (Rec: 12/13/21 11:54 AW [id number]) OP-PT Subjective Patient Comments Patient Comments Pt is rushed. She went to lab for fasting labs and had to wait too long. PT-OP-E Functional Tests Start: 08/10/21 15:19 Freq: Status: Active Protocol: Document 08/10/21 13:45 DCW (Rec: 08/10/21 15:36 DCW [id number]) Functional Tests 6 Minute Walk Test Distance 368' Device Used FWW Comments 1.02 ft/sec PT-OP-J Posture/Palpation/Skin Start: 08/10/21 15:19 Freq: Status: Active Protocol: Document 08/10/21 13:45 DCW (Rec: 08/10/21 15:36 DCW [id number]) Skin Assessment Incisional Assessment Incision Appearance/Comments Surgical incision covered in dressing, appears C, D, I PT-OP-K Range of Motion Start: 08/10/21 15:19 Freq: Status: Active Protocol: Document 09/22/21 10:30 SP (Rec: 09/22/21 11:32 SP [id number]) Knee Goniometric Range of Motion Knee Left Knee ROM WFL No Patient Position Supine Flexion Active (degrees) 123 Extension Active (degrees) 1 Comments supine PT-OP-M Strength Start: 08/10/21 15:19 Freq: Status: Active Protocol: Document 08/10/21 13:45 DCW (Rec: 08/10/21 15:36 DCW [id number]) Knee Strength Knee Manual Muscle Testing Right Flexion (S2) 4+ Good+ Extension (L3) 4 Good Left Flexion (S2) 4 Good Extension (L3) 3- Fair- PT-OP-Q Treatments Start: 08/10/21 15:19 Freq: Status: Active Protocol: Document 12/13/21 08:59 AW (Rec: 12/13/21 10:34 AW [id number]) Therapeutic Exercises Sitting Exercises sit to stands Sitting Exercise Name 5xSTS Resistance arms across chest Equipment Used 17.3 sec, 14.1 sec Comments goal assessment Gait Training Gait Activity stairs Description stairs Device Used uni or B rail Level of Assistance SBA Surface 4 step Comments Step over step patterning with continued cues for weight over stance leg, glute drive. Uni rail ascending, B rails and cues for controlled RLE descent (eccentric LLE). 2 Description 6MWT Device Used none Level of Assistance SBA Surface carpet, tile Distance/Duration 6 min/815 feet Treatment Focus fwd translation, decreased lateral lean Comments 2 brief standing rest breaks. Average gait speed 0.69 m/s. Manual Therapy Treatment Joint Mobilizations 2 Joint Patellar mobs Grade II Comments manual 1 Joint Tib-femoral Direction P->A Grade III Body Position Hooklying Taping L anterolateral knee Body Location lateral and medial (distal> prox) Treatment Focus knee stability, painrelief Type of Tape Kinesio Tape Comments 50% tension medial and lateral taping for support. PT-OP-R Modalities Start: 08/10/21 15:19 Freq: Status: Active Protocol: Document 09/26/21 09:02 SP (Rec: 09/26/21 09:47 SP [id number]) Ultrasound Therapy Treatment Left Medial Proximal Leg Treatment Duration (minutes) 8 Patient Position Hooklying Applicator Size (cm2) 2 Frequency Setting (mHz) 1 Duty Cycle 50% Intensity Setting (w/cm2) 1.0 Comments good response, less pain over L medial knee (over pes ancerine). PT-OP-T Assessment and Plan Start: 08/10/21 15:19 Freq: Status: Active Protocol: Document 12/13/21 08:59 AW (Rec: 12/13/21 10:34 AW [id number]) Physical Therapy Assessment Goals Four Impairment strength Retirement Goal (LTG) Pt will complete 5 Time Sit to linter operator 13 seconds or less as a measure of improved LE strength. 12/13/21 - 17.3 sec, 14.1 sec on consecutive trials Advance goal to 5xSTS in 11 seconds LTG Duration 02/13/22 Three Impairment Left knee AROM limited to 10?- 92? Retirement Goal (LTG) Pt to increase left knee AROM to 0?-120? to improve ability to perform transfers and ascend/descend stairs 09/22/21: 1-123deg AROM L knee. 10/03/21: 3-120 L knee AROM, 1 deg ext with QS, 3 deg was relaxed ROM. 10/12/21: 1-122 L knee AROM LTG Duration GOAL MET Two Impairment Pt ambulates 368' during 6 MWT Drop Pit Worker Goal (LTG) A walking speed of less than 1 .87 ft/sec is indicative of further functional decline in older adults. Pt to increase distance of 6 MWT to at least 709' without an assistive device to demonstrate increased functional mobility and improved independence. 10/12/21: Pt walks 590 feet with SPC on 6MWT for average gait speed of 0.5 .m/s. Continue toward goal 11/30/21 Pt walk 682 feet without AD. PROGRESSING. Advance goal to 950 feet on 6MWT with no AD for average gait speed 0.8 m/s LTG Duration 02/13/22 One Impairment Pt does not have an appropriate home exercise program Short Term Goal (STG) Pt to be independent and compliant with an appropriate HEP 09/22/21: HEP: QS, SLR, STS, LAQ, scar and patella mobs. STG Duration Met Progress Towards Goals Progress Towards Goals Progressing Toward Goals Progress Comments Pt has progressed her gait distance on 6MWT and improved her time of 5 Time Sit to Stand. Gait speed without AD continues to be less than ideal for safe community ambulation and gait deviations are still apparent. Pt would benefit from continued PT to progress strength and gait. Assessment Summary Assessment Pt arrived late but was able to complete goal assessment to extend plan of care. Gait speed on 6MWT improved to 0.7 m/s without AD. Stair descent improved with cues and manual facilitation for eccentric control LLE. Plan to continue gait and stair training. Physical Therapy Plan Frequency and Duration Frequency of Treatment 2x/Week Duration of Treatment Two months Plan of Care Start Date 12/13/21 Plan of Care End Date 02/13/22 Therapeutic Interventions Therapeutic Interventions Aquatic Therapy,Balance Training,Gait Training,Home Exercise Program,Manual Therapy,Neuromuscular Re- education,Patient/Caregiver Education,Self-Care/Home Management,Soft Tissue Mobilization,Therapeutic Activities,Therapeutic Exercises Modalities Cold Pack/Ice Massage,Electric Stimulation,Hot Packs, Ultrasound Next Visit Focus/Plan Next Note Type Treatment Note Next Visit Plan Stairs. Progress: ROM, strengthening, flexibility
--- NOTE | 2021-12-13 12:00 | PT.OPPOC ---
Physical, Occupational & Speech Therapy At [facility] Current Diagnoses Unilateral primary osteoarthritis, right knee (12/13/21) Pain in left knee (12/13/21) Stiffness of left knee, not elsewhere classified (12/13/21) Other abnormalities of gait and mobility (12/13/21) Aftercare following joint replacement surgery (12/13/21) Visit Care Team Role Provider Type Sylvie Roy DO Family Provider Physician Primary Care Provider Specialty: [facility] Address: [address] [place] [address], [place], [address] Email: [email or web address] Scott Rodriguez MD Attending Provider Physician Referring Provider Specialty: Orthopedics Orthopedic Surgery Address: [address] [place] [address], [phone] Email: [email or web address] Plan Of Care PT-OP-T Assessment and Plan Start: 08/10/21 15:19 Freq: Status: Active Protocol: Document 12/13/21 08:59 AW (Rec: 12/13/21 10:34 AW [id number]) Physical Therapy Assessment Goals Four Impairment strength Meat Blender Goal (LTG) Pt will complete 5 Time Sit to robotic machine tender production 13 seconds or less as a measure of improved LE strength. 12/13/21 - 17.3 sec, 14.1 sec on consecutive trials Advance goal to 5xSTS in 11 seconds LTG Duration 02/13/22 Three Impairment Left knee AROM limited to 10?- 92? Senior Care Goal (LTG) Pt to increase left knee AROM to 0?-120? to improve ability to perform transfers and ascend/descend stairs 09/22/21: 1-123deg AROM L knee. 10/03/21: 3-120 L knee AROM, 1 deg ext with QS, 3 deg was relaxed ROM. 10/12/21: 1-122 L knee AROM LTG Duration GOAL MET Two Impairment Pt ambulates 368' during 6 MWT Meat Blender Goal (LTG) A walking speed of less than 1 .87 ft/sec is indicative of further functional decline in older adults. Pt to increase distance of 6 MWT to at least 709' without an assistive device to demonstrate increased functional mobility and improved independence. 10/12/21: Pt walks 590 feet with SPC on 6MWT for average gait speed of 0.5 .m/s. Continue toward goal 11/30/21 Pt walk 682 feet without AD. PROGRESSING. Advance goal to 950 feet on 6MWT with no AD for average gait speed 0.8 m/s LTG Duration 02/13/22 One Impairment Pt does not have an appropriate home exercise program Short Term Goal (STG) Pt to be independent and compliant with an appropriate HEP 09/22/21: HEP: QS, SLR, STS, LAQ, scar and patella mobs. STG Duration Met Progress Towards Goals Progress Towards Goals Progressing Toward Goals Progress Comments Pt has progressed her gait distance on 6MWT and improved her time of 5 Time Sit to Stand. Gait speed without AD continues to be less than ideal for safe community ambulation and gait deviations are still apparent. Pt would benefit from continued PT to progress strength and gait. Assessment Summary Assessment Pt arrived late but was able to complete goal assessment to extend plan of care. Gait speed on 6MWT improved to 0.7 m/s without AD. Stair descent improved with cues and manual facilitation for eccentric control LLE. Plan to continue gait and stair training. Physical Therapy Plan Frequency and Duration Frequency of Treatment 2x/Week Duration of Treatment Two months Plan of Care Start Date 12/13/21 Plan of Care End Date 02/13/22 Therapeutic Interventions Therapeutic Interventions Aquatic Therapy,Balance Training,Gait Training,Home Exercise Program,Manual Therapy,Neuromuscular Re- education,Patient/Caregiver Education,Self-Care/Home Management,Soft Tissue Mobilization,Therapeutic Activities,Therapeutic Exercises Modalities Cold Pack/Ice Massage,Electric Stimulation,Hot Packs, Ultrasound Next Visit Focus/Plan Next Note Type Treatment Note Next Visit Plan Stairs. Progress: ROM, strengthening, flexibility Plan of Care Dates Plan of Care Start Date 12/13/21 Plan of Care End Date 02/13/22 Electronically Signed by: Brandi Peterson PT 12/13/21 1200 If you are in agreement with this Plan of Care, please return a signed and dated copy. I have reviewed this Plan of Care and certify that the skilled therapy services above are required to meet the patient?s needs. Physician Signature Date Printed Name and Credentials Clinical Instructor Signature Printed Name and Credentials
--- NOTE | 2021-12-27 12:06 | PT.OTN ---
Current Diagnoses Unilateral primary osteoarthritis, right knee (12/27/21) Pain in left knee (12/27/21) Stiffness of left knee, not elsewhere classified (12/27/21) Other abnormalities of gait and mobility (12/27/21) Aftercare following joint replacement surgery (12/27/21) Physical Therapy Treatment Note PT-OP-A Visit Information Start: 08/10/21 15:19 Freq: Status: Active Protocol: Document 12/27/21 11:20 AW (Rec: 12/27/21 12:05 AW [id number]) Out-Patient Physical Therapy Visit Information Visit Information Visit Type Treatment Note Visit Start Time 01:15 Visit Stop Time 12:00 Total Visit Minutes 45 Visit Number 25 Number of PROJECT ACCOUNT MANAGER Visits 0 Evaluation Information Evaluation Date 08/10/21 PT-OP-B Current Condition Start: 08/10/21 15:19 Freq: Status: Active Protocol: Document 08/10/21 13:45 DCW (Rec: 08/10/21 15:36 DCW [id number]) Current Condition History of Current Condition Onset Date 08/02/21 Current Complaints Left knee pain, stiffness, and weakness s/p TKA History of Current Condition Pt is a 75 year old female presenting eight days s/p L TKA. Pt went home following her surgery, but unfortunately experienced three falls, slurred speech, and confusion. Pt was admitted to the hospital 08/05/21-08/08/21 with concerns of a TBI/CVA. Pt eventually diagnosed with a GI bleed/gastric ulcers and a UTI. Pt feeling much better now, and was able to get some PT while in the hospital and was able to get up and move around more. Notes her knee hurts horribly. Pt ambulates with a FWW, notes she does have a 4WW, but doesn't like to use it, feels it is too easy for the walker to get away from me. Has been able to do some of her HEP, including heel slides, quad/ glute sets, adductor squeeze, SLR, SAQ, and ankle pumps. Treatment Goals Patient/Caregiver Goals My goal is to do my six weeks of rehab and be good enough to be done with it. PT-OP-C Subjective Start: 08/10/21 15:19 Freq: Status: Active Protocol: Document 12/27/21 11:20 AW (Rec: 12/27/21 12:05 AW [id number]) OP-PT Subjective Patient Comments Patient Comments Pt has been very busy and active PT-OP-E Functional Tests Start: 08/10/21 15:19 Freq: Status: Active Protocol: Document 08/10/21 13:45 DCW (Rec: 08/10/21 15:36 DCW [id number]) Functional Tests 6 Minute Walk Test Distance 368' Device Used FWW Comments 1.02 ft/sec PT-OP-J Posture/Palpation/Skin Start: 08/10/21 15:19 Freq: Status: Active Protocol: Document 08/10/21 13:45 DCW (Rec: 08/10/21 15:36 DCW [id number]) Skin Assessment Incisional Assessment Incision Appearance/Comments Surgical incision covered in dressing, appears C, D, I PT-OP-K Range of Motion Start: 08/10/21 15:19 Freq: Status: Active Protocol: Document 09/22/21 10:30 SP (Rec: 09/22/21 11:32 SP [id number]) Knee Goniometric Range of Motion Knee Left Knee ROM WFL No Patient Position Supine Flexion Active (degrees) 123 Extension Active (degrees) 1 Comments supine PT-OP-M Strength Start: 08/10/21 15:19 Freq: Status: Active Protocol: Document 08/10/21 13:45 DCW (Rec: 08/10/21 15:36 DCW [id number]) Knee Strength Knee Manual Muscle Testing Right Flexion (S2) 4+ Good+ Extension (L3) 4 Good Left Flexion (S2) 4 Good Extension (L3) 3- Fair- PT-OP-Q Treatments Start: 08/10/21 15:19 Freq: Status: Active Protocol: Document 12/27/21 11:20 AW (Rec: 12/27/21 12:05 AW [id number]) Cardio Equipment Recumbent Bicycle Duration (Minutes) 5 Resistance 3 Seat Position 3 Other no pain today Gym Equipment Shuttle Recovery SL squat Resistance 37# Shuttle Recovery Platform Stable Reps/Time 2x10 Bilateral Squats Resistance 75# Shuttle Recovery Platform Unstable Reps/Time 2x10 Therapeutic Exercises Sitting Exercises sit to stands Sitting Exercise Name sit to stand Resistance arms across chest Equipment Used 21 20 19 18 Reps/Minutes 4 x 5 reps Comments good eccentric control all except 18 Standing Exercises SLS Standing Exercise Name SLS - modified Equipment Used say disc under raised foot, rail prn Reps/Minutes 15-20 sec trials requiring fingertip on rail support Manual Therapy Treatment Joint Mobilizations 2 Joint Patellar mobs Grade II Comments manual 1 Joint Tib-femoral Direction P->A Grade III Body Position Hooklying Neuro Re-Education Treatment Balance Activities uneven Details uneven Surface blue foam Comments - EO - EO w/ head turns - EO with head nods PT-OP-R Modalities Start: 08/10/21 15:19 Freq: Status: Active Protocol: Document 09/26/21 09:02 SP (Rec: 09/26/21 09:47 SP [id number]) Ultrasound Therapy Treatment Left Medial Proximal Leg Treatment Duration (minutes) 8 Patient Position Hooklying Applicator Size (cm2) 2 Frequency Setting (mHz) 1 Duty Cycle 50% Intensity Setting (w/cm2) 1.0 Comments good response, less pain over L medial knee (over pes ancerine). PT-OP-T Assessment and Plan Start: 08/10/21 15:19 Freq: Status: Active Protocol: Document 12/27/21 11:20 AW (Rec: 12/27/21 12:05 AW [id number]) Physical Therapy Assessment Goals Four Impairment strength Activity Therapy Specialist Goal (LTG) Pt will complete 5 Time Sit to semiconductor testing group leader 13 seconds or less as a measure of improved LE strength. 12/13/21 - 17.3 sec, 14.1 sec on consecutive trials Advance goal to 5xSTS in 11 seconds LTG Duration 02/13/22 Three Impairment Left knee AROM limited to 10?- 92? Activity Therapy Specialist Goal (LTG) Pt to increase left knee AROM to 0?-120? to improve ability to perform transfers and ascend/descend stairs 09/22/21: 1-123deg AROM L knee. 10/03/21: 3-120 L knee AROM, 1 deg ext with QS, 3 deg was relaxed ROM. 10/12/21: 1-122 L knee AROM LTG Duration GOAL MET Two Impairment Pt ambulates 368' during 6 MWT [facility]ci Goal (LTG) A walking speed of less than 1 .87 ft/sec is indicative of further functional decline in older adults. Pt to increase distance of 6 MWT to at least 709' without an assistive device to demonstrate increased functional mobility and improved independence. 10/12/21: Pt walks 590 feet with SPC on 6MWT for average gait speed of 0.5 .m/s. Continue toward goal 11/30/21 Pt walk 682 feet without AD. PROGRESSING. Advance goal to 950 feet on 6MWT with no AD for average gait speed 0.8 m/s LTG Duration 02/13/22 One Impairment Pt does not have an appropriate home exercise program Short Term Goal (STG) Pt to be independent and compliant with an appropriate HEP 09/22/21: HEP: QS, SLR, STS, LAQ, scar and patella mobs. STG Duration Met Assessment Summary Assessment Pt would like to be able to walk with trekking poles and agreed to bring hers in next visit. Began to work on uneven surface today and pt tolerated well. Physical Therapy Plan Frequency and Duration Frequency of Treatment 2x/Week Duration of Treatment Two months Plan of Care Start Date 12/13/21 Plan of Care End Date 02/13/22 Therapeutic Interventions Therapeutic Interventions Aquatic Therapy,Balance Training,Gait Training,Home Exercise Program,Manual Therapy,Neuromuscular Re- education,Patient/Caregiver Education,Self-Care/Home Management,Soft Tissue Mobilization,Therapeutic Activities,Therapeutic Exercises Modalities Cold Pack/Ice Massage,Electric Stimulation,Hot Packs, Ultrasound Next Visit Focus/Plan Next Note Type Treatment Note Next Visit Plan Stairs. Progress: ROM, strengthening, flexibility. Continue unstable surface training. Assess gait with trekking poles
--- NOTE | 2022-01-04 16:00 | PT-OP ANOTE ---
Pt cancelled appt within 24hrs due to had procedure and recommended by physician not to attend PT for few days.
--- NOTE | 2022-01-10 15:13 | PT.OTN ---
Current Diagnoses Unilateral primary osteoarthritis, right knee (01/10/22) Pain in left knee (01/10/22) Stiffness of left knee, not elsewhere classified (01/10/22) Other abnormalities of gait and mobility (01/10/22) Aftercare following joint replacement surgery (01/10/22) Physical Therapy Treatment Note PT-OP-A Visit Information Start: 08/10/21 15:19 Freq: Status: Active Protocol: Document 01/10/22 14:30 DCW (Rec: 01/10/22 15:13 DCW [id number]) Out-Patient Physical Therapy Visit Information Visit Information Visit Type Treatment Note Visit Start Time 14:30 Visit Stop Time 15:15 Total Visit Minutes 45 Visit Number 26 Number of ROTARY DRILL OPERATOR Visits 0 Evaluation Information Evaluation Date 08/10/21 PT-OP-B Current Condition Start: 08/10/21 15:19 Freq: Status: Active Protocol: Document 08/10/21 13:45 DCW (Rec: 08/10/21 15:36 DCW [id number]) Current Condition History of Current Condition Onset Date 08/02/21 Current Complaints Left knee pain, stiffness, and weakness s/p TKA History of Current Condition Pt is a 75 year old female presenting eight days s/p L TKA. Pt went home following her surgery, but unfortunately experienced three falls, slurred speech, and confusion. Pt was admitted to the hospital 08/05/21-08/08/21 with concerns of a TBI/CVA. Pt eventually diagnosed with a GI bleed/gastric ulcers and a UTI. Pt feeling much better now, and was able to get some PT while in the hospital and was able to get up and move around more. Notes her knee hurts horribly. Pt ambulates with a FWW, notes she does have a 4WW, but doesn't like to use it, feels it is too easy for the walker to get away from me. Has been able to do some of her HEP, including heel slides, quad/ glute sets, adductor squeeze, SLR, SAQ, and ankle pumps. Treatment Goals Patient/Caregiver Goals My goal is to do my six weeks of rehab and be good enough to be done with it. PT-OP-C Subjective Start: 08/10/21 15:19 Freq: Status: Active Protocol: Document 01/10/22 14:30 DCW (Rec: 01/10/22 15:13 DCW [id number]) OP-PT Subjective Patient Comments Patient Comments I'm feeling good for the most part. I had to have an MRI of my chest last week, and had to kind of kneel in position, and my knee still hurts a bit from that. But I was able to go for a nice walk yesterday and it felt pretty good. PT-OP-E Functional Tests Start: 08/10/21 15:19 Freq: Status: Active Protocol: Document 08/10/21 13:45 DCW (Rec: 08/10/21 15:36 DCW [id number]) Functional Tests 6 Minute Walk Test Distance 368' Device Used FWW Comments 1.02 ft/sec PT-OP-J Posture/Palpation/Skin Start: 08/10/21 15:19 Freq: Status: Active Protocol: Document 08/10/21 13:45 DCW (Rec: 08/10/21 15:36 DCW [id number]) Skin Assessment Incisional Assessment Incision Appearance/Comments Surgical incision covered in dressing, appears C, D, I PT-OP-K Range of Motion Start: 08/10/21 15:19 Freq: Status: Active Protocol: Document 09/22/21 10:30 SP (Rec: 09/22/21 11:32 SP [id number]) Knee Goniometric Range of Motion Knee Left Knee ROM WFL No Patient Position Supine Flexion Active (degrees) 123 Extension Active (degrees) 1 Comments supine PT-OP-M Strength Start: 08/10/21 15:19 Freq: Status: Active Protocol: Document 08/10/21 13:45 DCW (Rec: 08/10/21 15:36 DCW [id number]) Knee Strength Knee Manual Muscle Testing Right Flexion (S2) 4+ Good+ Extension (L3) 4 Good Left Flexion (S2) 4 Good Extension (L3) 3- Fair- PT-OP-Q Treatments Start: 08/10/21 15:19 Freq: Status: Active Protocol: Document 01/10/22 14:30 DCW (Rec: 01/10/22 15:13 DCW [id number]) Cardio Equipment Recumbent Bicycle Duration (Minutes) 5 Resistance 3 Seat Position 5 Other no pain today Gym Equipment Shuttle Recovery SL squat Resistance 37# Shuttle Recovery Platform Stable Reps/Time 2x10 Bilateral Squats Resistance 87# Shuttle Recovery Platform Unstable Reps/Time 2x10 Gait Training Gait Activity 1 Description Gait training with Snapd Apping poles Level of Assistance CGA Distance/Duration 2 laps Manual Therapy Treatment Joint Mobilizations 2 Joint Patellar mobs Grade II Comments manual 1 Joint Tib-femoral Direction P->A Grade III Body Position Hooklying Taping L anterolateral knee Body Location lateral and medial (distal> prox) Treatment Focus y-strip distal patella tendon to quad Type of Tape Kinesio Tape Comments 50% tension medial and lateral taping for support. PT-OP-R Modalities Start: 08/10/21 15:19 Freq: Status: Active Protocol: Document 09/26/21 09:02 SP (Rec: 09/26/21 09:47 SP [id number]) Ultrasound Therapy Treatment Left Medial Proximal Leg Treatment Duration (minutes) 8 Patient Position Hooklying Applicator Size (cm2) 2 Frequency Setting (mHz) 1 Duty Cycle 50% Intensity Setting (w/cm2) 1.0 Comments good response, less pain over L medial knee (over pes ancerine). PT-OP-T Assessment and Plan Start: 08/10/21 15:19 Freq: Status: Active Protocol: Document 01/10/22 14:30 DCW (Rec: 01/10/22 15:13 DCW [id number]) Physical Therapy Assessment Impairments Impairments Activity Tolerance,Functional Activities,Functional Mobility ,Gait,Pain,ROM,Soft Tissue Mobility,Strength Goals Four Impairment strength Detention Goal (LTG) Pt will complete 5 Time Sit to flight engineer helicopter 13 seconds or less as a measure of improved LE strength. 12/13/21 - 17.3 sec, 14.1 sec on consecutive trials Advance goal to 5xSTS in 11 seconds LTG Duration 02/13/22 Three Impairment Left knee AROM limited to 10?- 92? Detention Goal (LTG) Pt to increase left knee AROM to 0?-120? to improve ability to perform transfers and ascend/descend stairs 09/22/21: 1-123deg AROM L knee. 10/03/21: 3-120 L knee AROM, 1 deg ext with QS, 3 deg was relaxed ROM. 10/12/21: 1-122 L knee AROM LTG Duration GOAL MET Two Impairment Pt ambulates 368' during 6 MWT Detention Goal (LTG) A walking speed of less than 1 .87 ft/sec is indicative of further functional decline in older adults. Pt to increase distance of 6 MWT to at least 709' without an assistive device to demonstrate increased functional mobility and improved independence. 10/12/21: Pt walks 590 feet with SPC on 6MWT for average gait speed of 0.5 .m/s. Continue toward goal 11/30/21 Pt walk 682 feet without AD. PROGRESSING. Advance goal to 950 feet on 6MWT with no AD for average gait speed 0.8 m/s LTG Duration 02/13/22 One Impairment Pt does not have an appropriate home exercise program Short Term Goal (STG) Pt to be independent and compliant with an appropriate HEP 09/22/21: HEP: QS, SLR, STS, LAQ, scar and patella mobs. STG Duration Met Assessment Summary Assessment Pt trekking poles brought in and adjusted for proper height . Pt demonstrated good ability to ambulate using them, although required some verbal cues for sequencing and placement during gait pattern. Physical Therapy Plan Frequency and Duration Frequency of Treatment 2x/Week Duration of Treatment Two months Plan of Care Start Date 12/13/21 Plan of Care End Date 02/13/22 Therapeutic Interventions Therapeutic Interventions Aquatic Therapy,Balance Training,Gait Training,Home Exercise Program,Manual Therapy,Neuromuscular Re- education,Patient/Caregiver Education,Self-Care/Home Management,Soft Tissue Mobilization,Therapeutic Activities,Therapeutic Exercises Modalities Cold Pack/Ice Massage,Electric Stimulation,Hot Packs, Ultrasound Next Visit Focus/Plan Next Note Type Treatment Note Next Visit Plan Stairs. Progress: ROM, strengthening, flexibility. Continue unstable surface training.
--- NOTE | 2022-01-17 09:00 | PT.OTN ---
Current Diagnoses Unilateral primary osteoarthritis, right knee (01/17/22) Pain in left knee (01/17/22) Stiffness of left knee, not elsewhere classified (01/17/22) Other abnormalities of gait and mobility (01/17/22) Aftercare following joint replacement surgery (01/17/22) Physical Therapy Treatment Note PT-OP-A Visit Information Start: 08/10/21 15:19 Freq: Status: Active Protocol: Document 01/17/22 08:19 SP (Rec: 01/17/22 09:02 SP [id number]) Out-Patient Physical Therapy Visit Information Visit Information Visit Type Treatment Note Visit Start Time 08:19 Visit Stop Time 09:00 Total Visit Minutes 41 Visit Number 27 Number of COLLEGE BASKETBALL COACH Visits 1 Evaluation Information Evaluation Date 08/10/21 PT-OP-B Current Condition Start: 08/10/21 15:19 Freq: Status: Active Protocol: Document 08/10/21 13:45 DCW (Rec: 08/10/21 15:36 DCW [id number]) Current Condition History of Current Condition Onset Date 08/02/21 Current Complaints Left knee pain, stiffness, and weakness s/p TKA History of Current Condition Pt is a 75 year old female presenting eight days s/p L TKA. Pt went home following her surgery, but unfortunately experienced three falls, slurred speech, and confusion. Pt was admitted to the hospital 08/05/21-08/08/21 with concerns of a TBI/CVA. Pt eventually diagnosed with a GI bleed/gastric ulcers and a UTI. Pt feeling much better now, and was able to get some PT while in the hospital and was able to get up and move around more. Notes her knee hurts horribly. Pt ambulates with a FWW, notes she does have a 4WW, but doesn't like to use it, feels it is too easy for the walker to get away from me. Has been able to do some of her HEP, including heel slides, quad/ glute sets, adductor squeeze, SLR, SAQ, and ankle pumps. Treatment Goals Patient/Caregiver Goals My goal is to do my six weeks of rehab and be good enough to be done with it. PT-OP-C Subjective Start: 08/10/21 15:19 Freq: Status: Active Protocol: Document 01/17/22 08:19 SP (Rec: 01/17/22 09:02 SP [id number]) OP-PT Subjective Patient Comments Patient Comments Pt stated is walking more with trekk poles with friends for 2nd time. She stated k taping L knee still holding well. PT-OP-E Functional Tests Start: 08/10/21 15:19 Freq: Status: Active Protocol: Document 08/10/21 13:45 DCW (Rec: 08/10/21 15:36 DCW [id number]) Functional Tests 6 Minute Walk Test Distance 368' Device Used FWW Comments 1.02 ft/sec PT-OP-J Posture/Palpation/Skin Start: 08/10/21 15:19 Freq: Status: Active Protocol: Document 08/10/21 13:45 DCW (Rec: 08/10/21 15:36 DCW [id number]) Skin Assessment Incisional Assessment Incision Appearance/Comments Surgical incision covered in dressing, appears C, D, I PT-OP-K Range of Motion Start: 08/10/21 15:19 Freq: Status: Active Protocol: Document 09/22/21 10:30 SP (Rec: 09/22/21 11:32 SP [id number]) Knee Goniometric Range of Motion Knee Left Knee ROM WFL No Patient Position Supine Flexion Active (degrees) 123 Extension Active (degrees) 1 Comments supine PT-OP-M Strength Start: 08/10/21 15:19 Freq: Status: Active Protocol: Document 08/10/21 13:45 DCW (Rec: 08/10/21 15:36 DCW [id number]) Knee Strength Knee Manual Muscle Testing Right Flexion (S2) 4+ Good+ Extension (L3) 4 Good Left Flexion (S2) 4 Good Extension (L3) 3- Fair- PT-OP-Q Treatments Start: 08/10/21 15:19 Freq: Status: Active Protocol: Document 01/17/22 08:19 SP (Rec: 01/17/22 09:02 SP [id number]) Cardio Equipment Recumbent Bicycle Duration (Minutes) 7 Resistance 3 Seat Position 5 Other no pain today Gym Equipment Shuttle Recovery SL squat Details each LE, good form Resistance 37# Shuttle Recovery Platform Stable Reps/Time 2x10 Bilateral Squats Details good form Resistance 87# Shuttle Recovery Platform Unstable Reps/Time 2x10 Gait Training Gait Activity 1 Description Gait training with trekking poles Level of Assistance SBA Distance/Duration 2 laps (340 ft) Treatment Focus sequencing trek poles, endurance for outdoor gait Comments stated tiring performed end tx , cued LLE foot clearance. Good 2 pt gait. Manual Therapy Treatment Soft Tissue Mobilization pes ancerine Body Location L medial and lat knee Mobilization Type Myofascial Release,Strumming Intensity/Depth Moderate Body Position Hooklying Comments and distal ITB Soleus Body Location L Soleus Mobilization Type Strumming,Sustained Pressure Intensity/Depth Moderate Body Position Sitting Manual Techniques HS stretch Type L Comments manual supine HS stretch PT-OP-R Modalities Start: 08/10/21 15:19 Freq: Status: Active Protocol: Document 09/26/21 09:02 SP (Rec: 09/26/21 09:47 SP [id number]) Ultrasound Therapy Treatment Left Medial Proximal Leg Treatment Duration (minutes) 8 Patient Position Hooklying Applicator Size (cm2) 2 Frequency Setting (mHz) 1 Duty Cycle 50% Intensity Setting (w/cm2) 1.0 Comments good response, less pain over L medial knee (over pes ancerine). PT-OP-T Assessment and Plan Start: 08/10/21 15:19 Freq: Status: Active Protocol: Document 01/17/22 08:19 SP (Rec: 01/17/22 09:02 SP [id number]) Physical Therapy Assessment Goals Four Impairment strength Snf Goal (LTG) Pt will complete 5 Time Sit to portfolio management marketing 13 seconds or less as a measure of improved LE strength. 12/13/21 - 17.3 sec, 14.1 sec on consecutive trials Advance goal to 5xSTS in 11 seconds LTG Duration 02/13/22 Three Impairment Left knee AROM limited to 10?- 92? Skinning Machine Feeder Goal (LTG) Pt to increase left knee AROM to 0?-120? to improve ability to perform transfers and ascend/descend stairs 09/22/21: 1-123deg AROM L knee. 10/03/21: 3-120 L knee AROM, 1 deg ext with QS, 3 deg was relaxed ROM. 10/12/21: 1-122 L knee AROM LTG Duration GOAL MET Two Impairment Pt ambulates 368' during 6 MWT Skinning Machine Feeder Goal (LTG) A walking speed of less than 1 .87 ft/sec is indicative of further functional decline in older adults. Pt to increase distance of 6 MWT to at least 709' without an assistive device to demonstrate increased functional mobility and improved independence. 10/12/21: Pt walks 590 feet with SPC on 6MWT for average gait speed of 0.5 .m/s. Continue toward goal 11/30/21 Pt walk 682 feet without AD. PROGRESSING. Advance goal to 950 feet on 6MWT with no AD for average gait speed 0.8 m/s LTG Duration 02/13/22 One Impairment Pt does not have an appropriate home exercise program Short Term Goal (STG) Pt to be independent and compliant with an appropriate HEP 09/22/21: HEP: QS, SLR, STS, LAQ, scar and patella mobs. STG Duration Met Assessment Summary Assessment Pt experienced med/ lateral L knee pain during shuttle recovery. Improved post manual . Good feedback tiring with gait with trek poles end tx but stated not pain just muscle tiring. Physical Therapy Plan Frequency and Duration Frequency of Treatment 2x/Week Duration of Treatment Two months Plan of Care Start Date 12/13/21 Plan of Care End Date 02/13/22 Therapeutic Interventions Therapeutic Interventions Aquatic Therapy,Balance Training,Gait Training,Home Exercise Program,Manual Therapy,Neuromuscular Re- education,Patient/Caregiver Education,Self-Care/Home Management,Soft Tissue Mobilization,Therapeutic Activities,Therapeutic Exercises Modalities Cold Pack/Ice Massage,Electric Stimulation,Hot Packs, Ultrasound Next Visit Focus/Plan Next Note Type Treatment Note Next Visit Plan Stairs. Progress: ROM, strengthening, flexibility. Continue unstable surface training.
--- NOTE | 2022-01-24 08:55 | PT.OTN ---
Current Diagnoses Unilateral primary osteoarthritis, right knee (01/24/22) Pain in left knee (01/24/22) Stiffness of left knee, not elsewhere classified (01/24/22) Other abnormalities of gait and mobility (01/24/22) Aftercare following joint replacement surgery (01/24/22) Physical Therapy Treatment Note PT-OP-A Visit Information Start: 08/10/21 15:19 Freq: Status: Active Protocol: Document 01/24/22 08:22 SP (Rec: 01/24/22 08:58 SP [id number]) Out-Patient Physical Therapy Visit Information Visit Information Visit Type Treatment Note Visit Note Pt has to leave early for diagnostic appt. Visit Start Time 08:22 Visit Stop Time 08:55 Total Visit Minutes 33 Visit Number 28 Number of AUTO BRAKE TECHNICIAN Visits 2 Evaluation Information Evaluation Date 08/10/21 PT-OP-B Current Condition Start: 08/10/21 15:19 Freq: Status: Active Protocol: Document 08/10/21 13:45 DCW (Rec: 08/10/21 15:36 DCW [id number]) Current Condition History of Current Condition Onset Date 08/02/21 Current Complaints Left knee pain, stiffness, and weakness s/p TKA History of Current Condition Pt is a 75 year old female presenting eight days s/p L TKA. Pt went home following her surgery, but unfortunately experienced three falls, slurred speech, and confusion. Pt was admitted to the hospital 08/05/21-08/08/21 with concerns of a TBI/CVA. Pt eventually diagnosed with a GI bleed/gastric ulcers and a UTI. Pt feeling much better now, and was able to get some PT while in the hospital and was able to get up and move around more. Notes her knee hurts horribly. Pt ambulates with a FWW, notes she does have a 4WW, but doesn't like to use it, feels it is too easy for the walker to get away from me. Has been able to do some of her HEP, including heel slides, quad/ glute sets, adductor squeeze, SLR, SAQ, and ankle pumps. Treatment Goals Patient/Caregiver Goals My goal is to do my six weeks of rehab and be good enough to be done with it. PT-OP-C Subjective Start: 08/10/21 15:19 Freq: Status: Active Protocol: Document 01/24/22 08:22 SP (Rec: 01/24/22 08:58 SP [id number]) OP-PT Subjective Patient Comments Patient Comments Pt reports has to leave early due to diagnostic kenna at 9. She states feels so much better everywhere using her B trek poles. She reports was ableto walk full length [place]. PT-OP-E Functional Tests Start: 08/10/21 15:19 Freq: Status: Active Protocol: Document 08/10/21 13:45 DCW (Rec: 08/10/21 15:36 DCW [id number]) Functional Tests 6 Minute Walk Test Distance 368' Device Used FWW Comments 1.02 ft/sec PT-OP-J Posture/Palpation/Skin Start: 08/10/21 15:19 Freq: Status: Active Protocol: Document 08/10/21 13:45 DCW (Rec: 08/10/21 15:36 DCW [id number]) Skin Assessment Incisional Assessment Incision Appearance/Comments Surgical incision covered in dressing, appears C, D, I PT-OP-K Range of Motion Start: 08/10/21 15:19 Freq: Status: Active Protocol: Document 09/22/21 10:30 SP (Rec: 09/22/21 11:32 SP [id number]) Knee Goniometric Range of Motion Knee Left Knee ROM WFL No Patient Position Supine Flexion Active (degrees) 123 Extension Active (degrees) 1 Comments supine PT-OP-M Strength Start: 08/10/21 15:19 Freq: Status: Active Protocol: Document 08/10/21 13:45 DCW (Rec: 08/10/21 15:36 DCW [id number]) Knee Strength Knee Manual Muscle Testing Right Flexion (S2) 4+ Good+ Extension (L3) 4 Good Left Flexion (S2) 4 Good Extension (L3) 3- Fair- PT-OP-Q Treatments Start: 08/10/21 15:19 Freq: Status: Active Protocol: Document 01/24/22 08:22 SP (Rec: 01/24/22 08:58 SP [id number]) Cardio Equipment Recumbent Bicycle Duration (Minutes) 5 Resistance 4 Seat Position 5 Other no pain today, 1.15 miles Gym Equipment Shuttle Recovery SL squat Details each LE, good form Resistance 37# Shuttle Recovery Platform Stable Reps/Time 2x10 Bilateral Squats Details good form- states tiring Resistance 87# Shuttle Recovery Platform Unstable Reps/Time 2x10 Therapeutic Exercises Sitting Exercises sit to stands Sitting Exercise Name sit to stand Resistance arms across chest Equipment Used 18 Reps/Minutes 5x STS timer didn't work 1st set, 2nd 17 s Comments good eccentric control Gait Training Gait Activity 1 Description Gait training no AD Device Used carrying SPC, not needed use Level of Assistance SBA Surface firm Distance/Duration 2 laps (340 ft)- 1 stopped rest 15 sec Treatment Focus sequencing trek poles, endurance for outdoor gait Comments stated tiring performed end tx , cued LLE foot clearance. Good 2 pt gait. Neuro Re-Education Treatment Balance Activities hurdles Details step to: f/side Surface firm Equipment 6 hurdles Reps/Duration 2 laps each direction Comments cued try soft eccentric heel strike with core and hip abd fac support, not need UE support PT-OP-R Modalities Start: 08/10/21 15:19 Freq: Status: Active Protocol: Document 09/26/21 09:02 SP (Rec: 09/26/21 09:47 SP [id number]) Ultrasound Therapy Treatment Left Medial Proximal Leg Treatment Duration (minutes) 8 Patient Position Hooklying Applicator Size (cm2) 2 Frequency Setting (mHz) 1 Duty Cycle 50% Intensity Setting (w/cm2) 1.0 Comments good response, less pain over L medial knee (over pes ancerine). PT-OP-T Assessment and Plan Start: 08/10/21 15:19 Freq: Status: Active Protocol: Document 01/24/22 08:22 SP (Rec: 01/24/22 08:58 SP [id number]) Physical Therapy Assessment Goals Four Impairment strength World History Teacher Goal (LTG) Pt will complete 5 Time Sit to security alarm installer 13 seconds or less as a measure of improved LE strength. 12/13/21 - 17.3 sec, 14.1 sec on consecutive trials Advance goal to 5xSTS in 11 seconds 01/24/22: 17 sec 2nd trial (due to 1st timer did work for 1st 5 reps) LTG Duration 02/13/22 Three Impairment Left knee AROM limited to 10?- 92? Correction Goal (LTG) Pt to increase left knee AROM to 0?-120? to improve ability to perform transfers and ascend/descend stairs 09/22/21: 1-123deg AROM L knee. 10/03/21: 3-120 L knee AROM, 1 deg ext with QS, 3 deg was relaxed ROM. 10/12/21: 1-122 L knee AROM LTG Duration GOAL MET Two Impairment Pt ambulates 368' during 6 MWT World History Teacher Goal (LTG) A walking speed of less than 1 .87 ft/sec is indicative of further functional decline in older adults. Pt to increase distance of 6 MWT to at least 709' without an assistive device to demonstrate increased functional mobility and improved independence. 10/12/21: Pt walks 590 feet with SPC on 6MWT for average gait speed of 0.5 .m/s. Continue toward goal 11/30/21 Pt walk 682 feet without AD. PROGRESSING. Advance goal to 950 feet on 6MWT with no AD for average gait speed 0.8 m/s LTG Duration 02/13/22 One Impairment Pt does not have an appropriate home exercise program Short Term Goal (STG) Pt to be independent and compliant with an appropriate HEP 09/22/21: HEP: QS, SLR, STS, LAQ, scar and patella mobs. STG Duration Met Assessment Summary Assessment Pt good effort ther ex, tires quickly standing activities but states is recovering from walking large full distance mall yesterday using B trek poles. She walked end tx and needed 1 stop stand rest but no use AD this tx. She not meeting her personal goals yet and wants to progress balance and endurance gait with out SOB. Physical Therapy Plan Frequency and Duration Frequency of Treatment 2x/Week Duration of Treatment Two months Plan of Care Start Date 12/13/21 Plan of Care End Date 02/13/22 Next Visit Focus/Plan Next Note Type Treatment Note Next Visit Plan Stairs next tx. Progress: ROM, strengthening, flexibility. Continue unstable surface training.
--- NOTE | 2022-01-31 11:58 | PT.OTN ---
Current Diagnoses Unilateral primary osteoarthritis, right knee (01/31/22) Pain in left knee (01/31/22) Stiffness of left knee, not elsewhere classified (01/31/22) Other abnormalities of gait and mobility (01/31/22) Aftercare following joint replacement surgery (01/31/22) Physical Therapy Treatment Note PT-OP-A Visit Information Start: 08/10/21 15:19 Freq: Status: Active Protocol: Document 01/31/22 11:15 DCW (Rec: 01/31/22 11:58 DCW [id number]) Out-Patient Physical Therapy Visit Information Visit Information Visit Type Treatment Note Visit Start Time 11:15 Visit Stop Time 12:00 Total Visit Minutes 45 Visit Number 29 Number of MAILROOM ASSOCIATE Visits 0 Evaluation Information Evaluation Date 08/10/21 PT-OP-B Current Condition Start: 08/10/21 15:19 Freq: Status: Active Protocol: Document 08/10/21 13:45 DCW (Rec: 08/10/21 15:36 DCW [id number]) Current Condition History of Current Condition Onset Date 08/02/21 Current Complaints Left knee pain, stiffness, and weakness s/p TKA History of Current Condition Pt is a 75 year old female presenting eight days s/p L TKA. Pt went home following her surgery, but unfortunately experienced three falls, slurred speech, and confusion. Pt was admitted to the hospital 08/05/21-08/08/21 with concerns of a TBI/CVA. Pt eventually diagnosed with a GI bleed/gastric ulcers and a UTI. Pt feeling much better now, and was able to get some PT while in the hospital and was able to get up and move around more. Notes her knee hurts horribly. Pt ambulates with a FWW, notes she does have a 4WW, but doesn't like to use it, feels it is too easy for the walker to get away from me. Has been able to do some of her HEP, including heel slides, quad/ glute sets, adductor squeeze, SLR, SAQ, and ankle pumps. Treatment Goals Patient/Caregiver Goals My goal is to do my six weeks of rehab and be good enough to be done with it. PT-OP-C Subjective Start: 08/10/21 15:19 Freq: Status: Active Protocol: Document 01/31/22 11:15 DCW (Rec: 01/31/22 11:58 DCW [id number]) OP-PT Subjective Patient Comments Patient Comments I don't know if it's my knee or my head, but I sometimes go side to side as I walk, usually when it's later in the day and I'm tired. PT-OP-E Functional Tests Start: 08/10/21 15:19 Freq: Status: Active Protocol: Document 08/10/21 13:45 DCW (Rec: 08/10/21 15:36 DCW [id number]) Functional Tests 6 Minute Walk Test Distance 368' Device Used FWW Comments 1.02 ft/sec PT-OP-J Posture/Palpation/Skin Start: 08/10/21 15:19 Freq: Status: Active Protocol: Document 08/10/21 13:45 DCW (Rec: 08/10/21 15:36 DCW [id number]) Skin Assessment Incisional Assessment Incision Appearance/Comments Surgical incision covered in dressing, appears C, D, I PT-OP-K Range of Motion Start: 08/10/21 15:19 Freq: Status: Active Protocol: Document 09/22/21 10:30 SP (Rec: 09/22/21 11:32 SP [id number]) Knee Goniometric Range of Motion Knee Left Knee ROM WFL No Patient Position Supine Flexion Active (degrees) 123 Extension Active (degrees) 1 Comments supine PT-OP-M Strength Start: 08/10/21 15:19 Freq: Status: Active Protocol: Document 08/10/21 13:45 DCW (Rec: 08/10/21 15:36 DCW [id number]) Knee Strength Knee Manual Muscle Testing Right Flexion (S2) 4+ Good+ Extension (L3) 4 Good Left Flexion (S2) 4 Good Extension (L3) 3- Fair- PT-OP-Q Treatments Start: 08/10/21 15:19 Freq: Status: Active Protocol: Document 01/31/22 11:15 DCW (Rec: 01/31/22 11:58 DCW [id number]) Cardio Equipment Recumbent Bicycle Duration (Minutes) 5 Resistance 6 Seat Position 5 Other no pain today, 1.15 miles Gym Equipment Shuttle Recovery SL squat Details each LE, good form Resistance 37# Shuttle Recovery Platform Stable Reps/Time 2x10 Bilateral Squats Details good form- states tiring Resistance 87# Shuttle Recovery Platform Unstable Reps/Time 2x10 Therapeutic Exercises Standing Exercises SLS Standing Exercise Name SLS - modified Equipment Used say disc under raised foot, rail prn Reps/Minutes 15-20 sec trials requiring fingertip on rail support step up Standing Exercise Name step up - fwd Side bilateral Resistance 6 step Equipment Used R rail Reps/Minutes 2x10 Other Exercises 1 Other Exercise Name Resisted side-stepping Resistance Red Reps/Minutes 20 ft x2 laps Neuro Re-Education Treatment Balance Activities Tandem stance Details Tandem stance Equipment // bars hurdles Details step to: f/side Surface firm Equipment 6 hurdles Reps/Duration 2 laps each direction Comments no UE support uneven Details uneven Surface blue foam Comments - EO/EC - EO w/ head turns - EO with head nods rocker board Details f/b/lateral wt shifts Equipment //bars PRN Comments cued tall posture, try wt shift more into LLE for even stance. PT-OP-R Modalities Start: 08/10/21 15:19 Freq: Status: Active Protocol: Document 09/26/21 09:02 SP (Rec: 09/26/21 09:47 SP [id number]) Ultrasound Therapy Treatment Left Medial Proximal Leg Treatment Duration (minutes) 8 Patient Position Hooklying Applicator Size (cm2) 2 Frequency Setting (mHz) 1 Duty Cycle 50% Intensity Setting (w/cm2) 1.0 Comments good response, less pain over L medial knee (over pes ancerine). PT-OP-T Assessment and Plan Start: 08/10/21 15:19 Freq: Status: Active Protocol: Document 01/31/22 11:15 DCW (Rec: 01/31/22 11:58 DCW [id number]) Physical Therapy Assessment Goals Four Impairment strength Patient Assessment Coordinator Goal (LTG) Pt will complete 5 Time Sit to laborer wrecking and salvaging 13 seconds or less as a measure of improved LE strength. 12/13/21 - 17.3 sec, 14.1 sec on consecutive trials Advance goal to 5xSTS in 11 seconds 01/24/22: 17 sec 2nd trial (due to 1st timer did work for 1st 5 reps) LTG Duration 02/13/22 Three Impairment Left knee AROM limited to 10?- 92? Patient Assessment Coordinator Goal (LTG) Pt to increase left knee AROM to 0?-120? to improve ability to perform transfers and ascend/descend stairs 09/22/21: 1-123deg AROM L knee. 10/03/21: 3-120 L knee AROM, 1 deg ext with QS, 3 deg was relaxed ROM. 10/12/21: 1-122 L knee AROM LTG Duration GOAL MET Two Impairment Pt ambulates 368' during 6 MWT Alf Goal (LTG) A walking speed of less than 1 .87 ft/sec is indicative of further functional decline in older adults. Pt to increase distance of 6 MWT to at least 709' without an assistive device to demonstrate increased functional mobility and improved independence. 10/12/21: Pt walks 590 feet with SPC on 6MWT for average gait speed of 0.5 .m/s. Continue toward goal 11/30/21 Pt walk 682 feet without AD. PROGRESSING. Advance goal to 950 feet on 6MWT with no AD for average gait speed 0.8 m/s LTG Duration 02/13/22 One Impairment Pt does not have an appropriate home exercise program Short Term Goal (STG) Pt to be independent and compliant with an appropriate HEP 09/22/21: HEP: QS, SLR, STS, LAQ, scar and patella mobs. STG Duration Met Assessment Summary Assessment Pt making very good progress overall, still fatiguing quickly, but working hard with activities. Improving balance and mobility of her left knee , will likely be approaching discharge over the next few visits. Physical Therapy Plan Frequency and Duration Frequency of Treatment 2x/Week Duration of Treatment Two months Plan of Care Start Date 12/13/21 Plan of Care End Date 02/13/22 Therapeutic Interventions Therapeutic Interventions Aquatic Therapy,Balance Training,Gait Training,Home Exercise Program,Manual Therapy,Neuromuscular Re- education,Patient/Caregiver Education,Self-Care/Home Management,Soft Tissue Mobilization,Therapeutic Activities,Therapeutic Exercises Modalities Cold Pack/Ice Massage,Electric Stimulation,Hot Packs, Ultrasound Next Visit Focus/Plan Next Note Type Treatment Note Next Visit Plan Stairs. Progress: ROM, strengthening, flexibility. Continue unstable surface training.
--- NOTE | 2022-02-07 09:41 | PT.OTN ---
Current Diagnoses Unilateral primary osteoarthritis, right knee (02/07/22) Pain in left knee (02/07/22) Stiffness of left knee, not elsewhere classified (02/07/22) Other abnormalities of gait and mobility (02/07/22) Aftercare following joint replacement surgery (02/07/22) Physical Therapy Treatment Note PT-OP-A Visit Information Start: 08/10/21 15:19 Freq: Status: Active Protocol: Document 02/07/22 08:48 AW (Rec: 02/07/22 09:41 AW [id number]) Out-Patient Physical Therapy Visit Information Visit Information Visit Type Treatment Note Visit Start Time 08:58 Visit Stop Time 09:38 Total Visit Minutes 40 Visit Number 30 Number of GASOLINE PUMP MECHANIC Visits 0 Evaluation Information Evaluation Date 08/10/21 PT-OP-B Current Condition Start: 08/10/21 15:19 Freq: Status: Active Protocol: Document 08/10/21 13:45 DCW (Rec: 08/10/21 15:36 DCW [id number]) Current Condition History of Current Condition Onset Date 08/02/21 Current Complaints Left knee pain, stiffness, and weakness s/p TKA History of Current Condition Pt is a 75 year old female presenting eight days s/p L TKA. Pt went home following her surgery, but unfortunately experienced three falls, slurred speech, and confusion. Pt was admitted to the hospital 08/05/21-08/08/21 with concerns of a TBI/CVA. Pt eventually diagnosed with a GI bleed/gastric ulcers and a UTI. Pt feeling much better now, and was able to get some PT while in the hospital and was able to get up and move around more. Notes her knee hurts horribly. Pt ambulates with a FWW, notes she does have a 4WW, but doesn't like to use it, feels it is too easy for the walker to get away from me. Has been able to do some of her HEP, including heel slides, quad/ glute sets, adductor squeeze, SLR, SAQ, and ankle pumps. Treatment Goals Patient/Caregiver Goals My goal is to do my six weeks of rehab and be good enough to be done with it. PT-OP-C Subjective Start: 08/10/21 15:19 Freq: Status: Active Protocol: Document 02/07/22 08:48 AW (Rec: 02/07/22 09:41 AW [id number]) OP-PT Subjective Patient Comments Patient Comments Went to see [place] in [place] last weekend and did not use any assistive device. Usually walking with trekking poles in the neighborhood. PT-OP-E Functional Tests Start: 08/10/21 15:19 Freq: Status: Active Protocol: Document 08/10/21 13:45 DCW (Rec: 08/10/21 15:36 DCW [id number]) Functional Tests 6 Minute Walk Test Distance 368' Device Used FWW Comments 1.02 ft/sec PT-OP-J Posture/Palpation/Skin Start: 08/10/21 15:19 Freq: Status: Active Protocol: Document 08/10/21 13:45 DCW (Rec: 08/10/21 15:36 DCW [id number]) Skin Assessment Incisional Assessment Incision Appearance/Comments Surgical incision covered in dressing, appears C, D, I PT-OP-K Range of Motion Start: 08/10/21 15:19 Freq: Status: Active Protocol: Document 09/22/21 10:30 SP (Rec: 09/22/21 11:32 SP [id number]) Knee Goniometric Range of Motion Knee Left Knee ROM WFL No Patient Position Supine Flexion Active (degrees) 123 Extension Active (degrees) 1 Comments supine PT-OP-M Strength Start: 08/10/21 15:19 Freq: Status: Active Protocol: Document 08/10/21 13:45 DCW (Rec: 08/10/21 15:36 DCW [id number]) Knee Strength Knee Manual Muscle Testing Right Flexion (S2) 4+ Good+ Extension (L3) 4 Good Left Flexion (S2) 4 Good Extension (L3) 3- Fair- PT-OP-Q Treatments Start: 08/10/21 15:19 Freq: Status: Active Protocol: Document 02/07/22 08:48 AW (Rec: 02/07/22 09:41 AW [id number]) Therapeutic Exercises Sitting Exercises sit to stands Sitting Exercise Name sit to stand x 5 Resistance arms across chest Equipment Used 18 Reps/Minutes 17 sec; 12 sec Comments good eccentric control Gait Training Gait Activity 2 Description 6MWT Device Used none Level of Assistance SBA Surface carpet, tile Distance/Duration 6 min/840 feet Treatment Focus fwd translation, decreased lateral lean Comments 1 very brief standing rest breaks. Pt is conversing throughout. No sway observed. Average gait speed 0.71 m/s. Neuro Re-Education Treatment Balance Activities hurdles Details step to: f/side Surface firm Equipment 6 hurdles Reps/Duration 2 laps each direction Comments no UE support uneven Details uneven Surface blue foam Comments - EO/EC - EO w/ head turns - EO with head nods rocker board Details f/b/lateral wt shifts Equipment //bars PRN Comments cued tall posture, try wt shift more into LLE for even stance. PT-OP-R Modalities Start: 08/10/21 15:19 Freq: Status: Active Protocol: Document 09/26/21 09:02 SP (Rec: 09/26/21 09:47 SP [id number]) Ultrasound Therapy Treatment Left Medial Proximal Leg Treatment Duration (minutes) 8 Patient Position Hooklying Applicator Size (cm2) 2 Frequency Setting (mHz) 1 Duty Cycle 50% Intensity Setting (w/cm2) 1.0 Comments good response, less pain over L medial knee (over pes ancerine). PT-OP-T Assessment and Plan Start: 08/10/21 15:19 Freq: Status: Active Protocol: Document 02/07/22 08:48 AW (Rec: 02/07/22 09:41 AW [id number]) Physical Therapy Assessment Goals Four Impairment strength Factory Machine Computer Operator Goal (LTG) Pt will complete 5 Time Sit to assembling inspector 13 seconds or less as a measure of improved LE strength. 12/13/21 - 17.3 sec, 14.1 sec on consecutive trials Advance goal to 5xSTS in 11 seconds 01/24/22: 17 sec 2nd trial (due to 1st timer did work for 1st 5 reps) 02/07/22 - 12 seconds LTG Duration 03/09/22 Three Impairment Left knee AROM limited to 10?- 92? Long-Term Goal (LTG) Pt to increase left knee AROM to 0?-120? to improve ability to perform transfers and ascend/descend stairs 09/22/21: 1-123deg AROM L knee. 10/03/21: 3-120 L knee AROM, 1 deg ext with QS, 3 deg was relaxed ROM. 10/12/21: 1-122 L knee AROM LTG Duration GOAL MET Two Impairment Pt ambulates 368' during 6 MWT Long-Term Goal (LTG) A walking speed of less than 1 .87 ft/sec is indicative of further functional decline in older adults. Pt to increase distance of 6 MWT to at least 709' without an assistive device to demonstrate increased functional mobility and improved independence. 10/12/21: Pt walks 590 feet with SPC on 6MWT for average gait speed of 0.5 .m/s. Continue toward goal 11/30/21 Pt walk 682 feet without AD. PROGRESSING. Advance goal to 950 feet on 6MWT with no AD for average gait speed 0.8 m/s LTG Duration 03/09/22 One Impairment Pt does not have an appropriate home exercise program Short Term Goal (STG) Pt to be independent and compliant with an appropriate HEP 09/22/21: HEP: QS, SLR, STS, LAQ, scar and patella mobs. STG Duration Met Progress Towards Goals Progress Towards Goals Progressing Toward Goals Progress Comments Slight progress with 6MWT without AD even though pt was talking throughout. Gait remains antalgic but path maintenance is good. 5 Time Sit to Stand has improved to 12 seconds without UE support. Assessment Summary Assessment Lois has two more appointments scheduled. Updated POC today to cover final visits. She continues to progress as above but is likely approaching a plateau. Pt anticipates discharge at appointment. Physical Therapy Plan Frequency and Duration Frequency of Treatment 1-2x/week Duration of Treatment 1 month Plan of Care Start Date 02/07/22 Plan of Care End Date 03/09/22 Therapeutic Interventions Therapeutic Interventions Aquatic Therapy,Balance Training,Gait Training,Home Exercise Program,Manual Therapy,Neuromuscular Re- education,Patient/Caregiver Education,Self-Care/Home Management,Soft Tissue Mobilization,Therapeutic Activities,Therapeutic Exercises Modalities Cold Pack/Ice Massage,Electric Stimulation,Hot Packs, Ultrasound Next Visit Focus/Plan Next Note Type Treatment Note Next Visit Plan Stairs. Progress: ROM, strengthening, flexibility. Continue unstable surface training.
--- NOTE | 2022-02-07 09:42 | PT.OPPOC ---
Physical, Occupational & Speech Therapy At [facility] Current Diagnoses Unilateral primary osteoarthritis, right knee (02/07/22) Pain in left knee (02/07/22) Stiffness of left knee, not elsewhere classified (02/07/22) Other abnormalities of gait and mobility (02/07/22) Aftercare following joint replacement surgery (02/07/22) Visit Care Team Role Provider Type Sylvie Roy DO Family Provider Physician Primary Care Provider Specialty: [facility] Address: [address] [place] [address], [place], [address] Email: [email or web address] Scott Rodriguez MD Attending Provider Physician Referring Provider Specialty: Orthopedics Orthopedic Surgery Address: [address] [place] [address], [id number] Email: [email or web address] Plan Of Care PT-OP-T Assessment and Plan Start: 08/10/21 15:19 Freq: Status: Active Protocol: Document 02/07/22 08:48 AW (Rec: 02/07/22 09:41 AW [id number]) Physical Therapy Assessment Goals Four Impairment strength Media Librarian Goal (LTG) Pt will complete 5 Time Sit to production line mechanic 13 seconds or less as a measure of improved LE strength. 12/13/21 - 17.3 sec, 14.1 sec on consecutive trials Advance goal to 5xSTS in 11 seconds 01/24/22: 17 sec 2nd trial (due to 1st timer did work for 1st 5 reps) 02/07/22 - 12 seconds LTG Duration 03/09/22 Three Impairment Left knee AROM limited to 10?- 92? Fpc Goal (LTG) Pt to increase left knee AROM to 0?-120? to improve ability to perform transfers and ascend/descend stairs 09/22/21: 1-123deg AROM L knee. 10/03/21: 3-120 L knee AROM, 1 deg ext with QS, 3 deg was relaxed ROM. 10/12/21: 1-122 L knee AROM LTG Duration GOAL MET Two Impairment Pt ambulates 368' during 6 MWT Media Librarian Goal (LTG) A walking speed of less than 1 .87 ft/sec is indicative of further functional decline in older adults. Pt to increase distance of 6 MWT to at least 709' without an assistive device to demonstrate increased functional mobility and improved independence. 10/12/21: Pt walks 590 feet with SPC on 6MWT for average gait speed of 0.5 .m/s. Continue toward goal 11/30/21 Pt walk 682 feet without AD. PROGRESSING. Advance goal to 950 feet on 6MWT with no AD for average gait speed 0.8 m/s LTG Duration 03/09/22 One Impairment Pt does not have an appropriate home exercise program Short Term Goal (STG) Pt to be independent and compliant with an appropriate HEP 09/22/21: HEP: QS, SLR, STS, LAQ, scar and patella mobs. STG Duration Met Progress Towards Goals Progress Towards Goals Progressing Toward Goals Progress Comments Slight progress with 6MWT without AD even though pt was talking throughout. Gait remains antalgic but path maintenance is good. 5 Time Sit to Stand has improved to 12 seconds without UE support. Assessment Summary Assessment Lois has two more appointments scheduled. Updated POC today to cover final visits. She continues to progress as above but is likely approaching a plateau. Pt anticipates discharge at appointment. Physical Therapy Plan Frequency and Duration Frequency of Treatment 1-2x/week Duration of Treatment 1 month Plan of Care Start Date 02/07/22 Plan of Care End Date 03/09/22 Therapeutic Interventions Therapeutic Interventions Aquatic Therapy,Balance Training,Gait Training,Home Exercise Program,Manual Therapy,Neuromuscular Re- education,Patient/Caregiver Education,Self-Care/Home Management,Soft Tissue Mobilization,Therapeutic Activities,Therapeutic Exercises Modalities Cold Pack/Ice Massage,Electric Stimulation,Hot Packs, Ultrasound Next Visit Focus/Plan Next Note Type Treatment Note Next Visit Plan Stairs. Progress: ROM, strengthening, flexibility. Continue unstable surface training. Plan of Care Dates Plan of Care Start Date 02/07/22 Plan of Care End Date 03/09/22 Electronically Signed by: Brandi Peterson, PT 02/07/22 0942 If you are in agreement with this Plan of Care, please return a signed and dated copy. I have reviewed this Plan of Care and certify that the skilled therapy services above are required to meet the patient?s needs. Physician Signature Date Printed Name and Credentials Clinical Instructor Signature Printed Name and Credentials
--- NOTE | 2022-02-14 13:45 | PT.OTN ---
Current Diagnoses Unilateral primary osteoarthritis, right knee (02/14/22) Pain in left knee (02/14/22) Stiffness of left knee, not elsewhere classified (02/14/22) Other abnormalities of gait and mobility (02/14/22) Aftercare following joint replacement surgery (02/14/22) Physical Therapy Treatment Note PT-OP-A Visit Information Start: 08/10/21 15:19 Freq: Status: Active Protocol: Document 02/14/22 13:10 AW (Rec: 02/14/22 13:45 AW [id number]) Out-Patient Physical Therapy Visit Information Visit Information Visit Type Treatment Note Visit Start Time 13:13 Visit Stop Time 13:45 Total Visit Minutes 32 Evaluation Information Evaluation Date 08/10/21 PT-OP-B Current Condition Start: 08/10/21 15:19 Freq: Status: Active Protocol: Document 08/10/21 13:45 DCW (Rec: 08/10/21 15:36 DCW [id number]) Current Condition History of Current Condition Onset Date 08/02/21 Current Complaints Left knee pain, stiffness, and weakness s/p TKA History of Current Condition Pt is a 75 year old female presenting eight days s/p L TKA. Pt went home following her surgery, but unfortunately experienced three falls, slurred speech, and confusion. Pt was admitted to the hospital 08/05/21-08/08/21 with concerns of a TBI/CVA. Pt eventually diagnosed with a GI bleed/gastric ulcers and a UTI. Pt feeling much better now, and was able to get some PT while in the hospital and was able to get up and move around more. Notes her knee hurts horribly. Pt ambulates with a FWW, notes she does have a 4WW, but doesn't like to use it, feels it is too easy for the walker to get away from me. Has been able to do some of her HEP, including heel slides, quad/ glute sets, adductor squeeze, SLR, SAQ, and ankle pumps. Treatment Goals Patient/Caregiver Goals My goal is to do my six weeks of rehab and be good enough to be done with it. PT-OP-C Subjective Start: 08/10/21 15:19 Freq: Status: Active Protocol: Document 02/14/22 13:10 AW (Rec: 02/14/22 13:45 AW [id number]) OP-PT Subjective Patient Comments Patient Comments Lois was stuck in traffic so is arriving late today. Fell last weekend, landing on both knees. Knees and left big toe are still sore. PT-OP-E Functional Tests Start: 08/10/21 15:19 Freq: Status: Active Protocol: Document 08/10/21 13:45 DCW (Rec: 08/10/21 15:36 DCW [id number]) Functional Tests 6 Minute Walk Test Distance 368' Device Used FWW Comments 1.02 ft/sec PT-OP-J Posture/Palpation/Skin Start: 08/10/21 15:19 Freq: Status: Active Protocol: Document 08/10/21 13:45 DCW (Rec: 08/10/21 15:36 DCW [id number]) Skin Assessment Incisional Assessment Incision Appearance/Comments Surgical incision covered in dressing, appears C, D, I PT-OP-K Range of Motion Start: 08/10/21 15:19 Freq: Status: Active Protocol: Document 09/22/21 10:30 SP (Rec: 09/22/21 11:32 SP [id number]) Knee Goniometric Range of Motion Knee Left Knee ROM WFL No Patient Position Supine Flexion Active (degrees) 123 Extension Active (degrees) 1 Comments supine PT-OP-M Strength Start: 08/10/21 15:19 Freq: Status: Active Protocol: Document 08/10/21 13:45 DCW (Rec: 08/10/21 15:36 DCW [id number]) Knee Strength Knee Manual Muscle Testing Right Flexion (S2) 4+ Good+ Extension (L3) 4 Good Left Flexion (S2) 4 Good Extension (L3) 3- Fair- PT-OP-Q Treatments Start: 08/10/21 15:19 Freq: Status: Active Protocol: Document 02/14/22 13:10 AW (Rec: 02/14/22 13:45 AW [id number]) Therapeutic Exercises Sitting Exercises sit to stands Sitting Exercise Name sit to stand x 5 Resistance arms across chest Equipment Used 18 Reps/Minutes 14.3 sec; 15.3 sec Comments good eccentric control Standing Exercises calf stretch Standing Exercise Name calf stretch Equipment Used RADHA SLS Standing Exercise Name SLS - modified Equipment Used say disc under raised foot, rail prn Reps/Minutes 15-20 sec trials requiring fingertip on rail support step up Standing Exercise Name step up - fwd and step down Side bilateral Resistance 6 step Equipment Used R rail Reps/Minutes 2x10 Gait Training Gait Activity stairs Description stairs Device Used uni or B rail Level of Assistance SBA Surface 4 step, 6 step Comments Step over step patterning with continued cues for weight over stance leg, glute drive. Uni rail ascending and descending; cues for controlled RLE descent ( eccentric LLE). Neuro Re-Education Treatment Balance Activities Tandem stance Details Tandem stance Equipment // bars uneven Details uneven Surface blue foam Comments - EO/EC - EO w/ head turns - EO with head nods rocker board Details f/b/lateral wt shifts Equipment //bars PRN Comments cued tall posture, try wt shift more into LLE for even stance. PT-OP-R Modalities Start: 08/10/21 15:19 Freq: Status: Active Protocol: Document 09/26/21 09:02 SP (Rec: 09/26/21 09:47 SP [id number]) Ultrasound Therapy Treatment Left Medial Proximal Leg Treatment Duration (minutes) 8 Patient Position Hooklying Applicator Size (cm2) 2 Frequency Setting (mHz) 1 Duty Cycle 50% Intensity Setting (w/cm2) 1.0 Comments good response, less pain over L medial knee (over pes ancerine). PT-OP-T Assessment and Plan Start: 08/10/21 15:19 Freq: Status: Active Protocol: Document 02/14/22 13:10 AW (Rec: 02/14/22 13:45 AW [id number]) Physical Therapy Assessment Goals Four Impairment strength Long-Term Goal (LTG) Pt will complete 5 Time Sit to nib inspector 13 seconds or less as a measure of improved LE strength. 12/13/21 - 17.3 sec, 14.1 sec on consecutive trials Advance goal to 5xSTS in 11 seconds 01/24/22: 17 sec 2nd trial (due to 1st timer did work for 1st 5 reps) 02/07/22 - 12 seconds LTG Duration 03/09/22 Three Impairment Left knee AROM limited to 10?- 92? Die Caster Goal (LTG) Pt to increase left knee AROM to 0?-120? to improve ability to perform transfers and ascend/descend stairs 09/22/21: 1-123deg AROM L knee. 10/03/21: 3-120 L knee AROM, 1 deg ext with QS, 3 deg was relaxed ROM. 10/12/21: 1-122 L knee AROM LTG Duration GOAL MET Two Impairment Pt ambulates 368' during 6 MWT Die Caster Goal (LTG) A walking speed of less than 1 .87 ft/sec is indicative of further functional decline in older adults. Pt to increase distance of 6 MWT to at least 709' without an assistive device to demonstrate increased functional mobility and improved independence. 10/12/21: Pt walks 590 feet with SPC on 6MWT for average gait speed of 0.5 .m/s. Continue toward goal 11/30/21 Pt walk 682 feet without AD. PROGRESSING. Advance goal to 950 feet on 6MWT with no AD for average gait speed 0.8 m/s LTG Duration 03/09/22 One Impairment Pt does not have an appropriate home exercise program Short Term Goal (STG) Pt to be independent and compliant with an appropriate HEP 09/22/21: HEP: QS, SLR, STS, LAQ, scar and patella mobs. STG Duration Met Assessment Summary Assessment Lois was late due to traffic but worked hard on strength and balance activities today. She does report a fall last weekend which resulted in knee , hand, and left hip pain but she is recovering without incident. She is planning to discharge after next visit. Physical Therapy Plan Frequency and Duration Frequency of Treatment 1-2x/week Duration of Treatment 1 month Plan of Care Start Date 02/07/22 Plan of Care End Date 03/09/22 Therapeutic Interventions Therapeutic Interventions Aquatic Therapy,Balance Training,Gait Training,Home Exercise Program,Manual Therapy,Neuromuscular Re- education,Patient/Caregiver Education,Self-Care/Home Management,Soft Tissue Mobilization,Therapeutic Activities,Therapeutic Exercises Modalities Cold Pack/Ice Massage,Electric Stimulation,Hot Packs, Ultrasound Next Visit Focus/Plan Next Note Type Discharge Summary Next Visit Plan Stairs. Progress: ROM, strengthening, flexibility. Continue unstable surface training.
--- NOTE | 2022-02-21 11:02 | PT.OTN ---
Current Diagnoses Unilateral primary osteoarthritis, right knee (02/21/22) Pain in left knee (02/21/22) Stiffness of left knee, not elsewhere classified (02/21/22) Other abnormalities of gait and mobility (02/21/22) Aftercare following joint replacement surgery (02/21/22) Physical Therapy Treatment Note PT-OP-A Visit Information Start: 08/10/21 15:19 Freq: Status: Active Protocol: Document 02/21/22 10:30 DCW (Rec: 02/21/22 11:02 DCW [id number]) Out-Patient Physical Therapy Visit Information Visit Information Visit Type Discharge Summary Visit Start Time 10:30 Visit Stop Time 11:00 Total Visit Minutes 30 Visit Number 32 Number of [employer] Visits 0 Evaluation Information Evaluation Date 08/10/21 PT-OP-B Current Condition Start: 08/10/21 15:19 Freq: Status: Active Protocol: Document 08/10/21 13:45 DCW (Rec: 08/10/21 15:36 DCW [id number]) Current Condition History of Current Condition Onset Date 08/02/21 Current Complaints Left knee pain, stiffness, and weakness s/p TKA History of Current Condition Pt is a 75 year old female presenting eight days s/p L TKA. Pt went home following her surgery, but unfortunately experienced three falls, slurred speech, and confusion. Pt was admitted to the hospital 08/05/21-08/08/21 with concerns of a TBI/CVA. Pt eventually diagnosed with a GI bleed/gastric ulcers and a UTI. Pt feeling much better now, and was able to get some PT while in the hospital and was able to get up and move around more. Notes her knee hurts horribly. Pt ambulates with a FWW, notes she does have a 4WW, but doesn't like to use it, feels it is too easy for the walker to get away from me. Has been able to do some of her HEP, including heel slides, quad/ glute sets, adductor squeeze, SLR, SAQ, and ankle pumps. Treatment Goals Patient/Caregiver Goals My goal is to do my six weeks of rehab and be good enough to be done with it. PT-OP-C Subjective Start: 08/10/21 15:19 Freq: Status: Active Protocol: Document 02/21/22 10:30 DCW (Rec: 02/21/22 11:02 DCW [id number]) OP-PT Subjective Patient Comments Patient Comments Pt notes she is going up stairs mostly foot over foot. PT-OP-E Functional Tests Start: 08/10/21 15:19 Freq: Status: Active Protocol: Document 08/10/21 13:45 DCW (Rec: 08/10/21 15:36 DCW [id number]) Functional Tests 6 Minute Walk Test Distance 368' Device Used FWW Comments 1.02 ft/sec PT-OP-J Posture/Palpation/Skin Start: 08/10/21 15:19 Freq: Status: Active Protocol: Document 08/10/21 13:45 DCW (Rec: 08/10/21 15:36 DCW [id number]) Skin Assessment Incisional Assessment Incision Appearance/Comments Surgical incision covered in dressing, appears C, D, I PT-OP-K Range of Motion Start: 08/10/21 15:19 Freq: Status: Active Protocol: Document 09/22/21 10:30 SP (Rec: 09/22/21 11:32 SP [id number]) Knee Goniometric Range of Motion Knee Left Knee ROM WFL No Patient Position Supine Flexion Active (degrees) 123 Extension Active (degrees) 1 Comments supine PT-OP-M Strength Start: 08/10/21 15:19 Freq: Status: Active Protocol: Document 08/10/21 13:45 DCW (Rec: 08/10/21 15:36 DCW [id number]) Knee Strength Knee Manual Muscle Testing Right Flexion (S2) 4+ Good+ Extension (L3) 4 Good Left Flexion (S2) 4 Good Extension (L3) 3- Fair- PT-OP-Q Treatments Start: 08/10/21 15:19 Freq: Status: Active Protocol: Document 02/21/22 10:30 DCW (Rec: 02/21/22 11:02 DCW [id number]) Cardio Equipment Recumbent Bicycle Duration (Minutes) 5 Resistance 6 Seat Position 3 Therapeutic Exercises Sitting Exercises sit to stands Sitting Exercise Name sit to stand x 5 Resistance arms across chest Equipment Used 18 Reps/Minutes 13.56 sec Comments good eccentric control Gait Training Gait Activity 2 Description 6MWT Device Used none Level of Assistance SBA Surface carpet, tile Distance/Duration 6 min/930 feet Treatment Focus fwd translation, decreased lateral lean Comments Pt is conversing throughout. No sway observed. Average gait speed 2.58 ft/sec. PT-OP-R Modalities Start: 08/10/21 15:19 Freq: Status: Active Protocol: Document 09/26/21 09:02 SP (Rec: 09/26/21 09:47 SP [id number]) Ultrasound Therapy Treatment Left Medial Proximal Leg Treatment Duration (minutes) 8 Patient Position Hooklying Applicator Size (cm2) 2 Frequency Setting (mHz) 1 Duty Cycle 50% Intensity Setting (w/cm2) 1.0 Comments good response, less pain over L medial knee (over pes ancerine). PT-OP-T Assessment and Plan Start: 08/10/21 15:19 Freq: Status: Active Protocol: Document 02/21/22 10:30 DCW (Rec: 02/21/22 11:02 DCW [id number]) Physical Therapy Assessment Goals Four Impairment strength Chcf Goal (LTG) Pt will complete 5 Time Sit to field coordinator 13 seconds or less as a measure of improved LE strength. 12/13/21 - 17.3 sec, 14.1 sec on consecutive trials Advance goal to 5xSTS in 11 seconds 01/24/22: 17 sec 2nd trial (due to 1st timer did work for 1st 5 reps) 02/07/22 - 12 seconds 02/21/22 - 13 sec LTG Duration Partially Met Three Impairment Left knee AROM limited to 10?- 92? Project Inspector Goal (LTG) Pt to increase left knee AROM to 0?-120? to improve ability to perform transfers and ascend/descend stairs 09/22/21: 1-123deg AROM L knee. 10/03/21: 3-120 L knee AROM, 1 deg ext with QS, 3 deg was relaxed ROM. 10/12/21: 1-122 L knee AROM LTG Duration GOAL MET Two Impairment Pt ambulates 368' during 6 MWT Project Inspector Goal (LTG) A walking speed of less than 1 .87 ft/sec is indicative of further functional decline in older adults. Pt to increase distance of 6 MWT to at least 709' without an assistive device to demonstrate increased functional mobility and improved independence. 10/12/21: Pt walks 590 feet with SPC on 6MWT for average gait speed of 0.5 .m/s. Continue toward goal 11/30/21 Pt walk 682 feet without AD. PROGRESSING. Advance goal to 950 feet on 6MWT with no AD for average gait speed 0.8 m/s 02/21/22 6 MWT 930' /s AD LTG Duration Partially met One Impairment Pt does not have an appropriate home exercise program Short Term Goal (STG) Pt to be independent and compliant with an appropriate HEP 09/22/21: HEP: QS, SLR, STS, LAQ, scar and patella mobs. STG Duration Met Assessment Summary Assessment Pt met all initial goals, and has gotten very close to meeting advanced goals. Pt largely returned to baseline levels in daily functions, ROM WNL. Pt appropriate for discharge at this time. Physical Therapy Plan Frequency and Duration Frequency of Treatment 1-2x/week Duration of Treatment 1 month Plan of Care Start Date 02/07/22 Plan of Care End Date 03/09/22 Therapeutic Interventions Therapeutic Interventions Aquatic Therapy,Balance Training,Gait Training,Home Exercise Program,Manual Therapy,Neuromuscular Re- education,Patient/Caregiver Education,Self-Care/Home Management,Soft Tissue Mobilization,Therapeutic Activities,Therapeutic Exercises Modalities Cold Pack/Ice Massage,Electric Stimulation,Hot Packs, Ultrasound Discharge Physical Therapy Discharge Reasons Goals Met Next Visit Focus/Plan Next Note Type Discharge Summary
== END 2022-02-23 07:51 | disposition home or self-care (01) ==
LOC: PHYS 10:30
PROVIDERS: Family Provider Family Medicine; PCP Family Medicine; Referring Provider Orthopaedic Surgery; Visit Provider Orthopaedic Surgery
DX: M17.11 Unilateral primary osteoarthritis, right knee (principal); Z47.1 Aftercare following joint replacement surgery; M25.662 Stiffness of left knee, not elsewhere classified; M25.562 Pain in left knee; R26.89 Other abnormalities of gait and mobility
CPT/HCPCS: 97014; 97110; 97112; 97116; 97140; 97161; 97530; G0283

== ENCOUNTER → 2022-02-28 09:45 | Outpatient (CLI) | payer MEDICARE, OTHER, SELFPAY ==
[2021-08-14 12:08] VITALS: BMI 32.9
[2022-02-28 10:57] LABS: COVID19 -Nasal RAPID Negative (Negative)
== END ==
PROVIDERS: Family Provider Family Medicine; PCP Family Medicine; Visit Provider Surgery
DX: Z20.822 Contact with and (suspected) exposure to COVID-19 (principal); Z01.812 Encounter for preprocedural laboratory examination
CPT/HCPCS: 87635; C9803

== ENCOUNTER 2022-03-01 07:57 | Day surgery (SDC) | payer MEDICARE, OTHER, SELFPAY ==
[2021-08-14 12:08] VITALS: BMI 32.9
[2022-03-01] VITALS (7 sets, daily range): BP systolic 98–146; BP diastolic 59–79; PULSE 58–83; RESP 12–18; TEMP 36.7–36.8; O2SAT 91–98; BMI 32.3
--- NOTE | 2022-03-01 | PATH_ITS ---
[facility] Accession Number: [id number] . 01 Material submitted: . colon - DESCENDING COLON POLYP X2 . 01 Diagnosis: Descending Colon Polyp x2, Biopsy: Tubular adenoma. Hyperplastic polyp. MRV 03/07/2022 1320 Local . 01 Electronically signed: . Irish Villarreal MD, Pathologist NPI- [id number] . 01 Gross description: . DESCENDING COLON POLYP X2: Received in formalin are 2 fragment(s) of bynum, soft tissue measuring 0.7 x 0.3 x 0.3 cm to 1.2 x 0.7 x 0.2 cm submitted entirely in 1 cassette(s) /ELIN 03/06/2022 1856 Local . 01 Pathologist provided ICD-10: D12.4 . 01 CPT . 998118 Specimen Comment: A courtesy copy of this report has been sent to [phone] Performed at: 01 [facility] [address] [place] [address], [place], [place] [id number] MD Magan Alicea MD Phone: [phone]
[2022-03-01] MEDS: LACTATED RINGERS 1,000 ML 200 ML IV (09:05)
--- NOTE | 2022-03-01 09:14 | PM.HP.1 ---
History of Present Illness History of Present Illness Date Patient Seen: 03/01/22 Time Patient Seen: 09:14 Chief complaint: DX COLONOSCOPY Narrative: Lois is here for her colonoscopy for change in bowel habits. She believes it has been at least 9 years since her last colonoscopy. See office note from January for details. Patient History Medical History Acute upper GI bleed Anxiety Breast cancer (1992) Breast cancer, left breast (2016) Cataract (2010) Chicken pox Diabetes mellitus (~1987) Fractures GERD (gastroesophageal reflux disease) Hayfever (~1959) History of recurrent ear infection Hyperlipidemia (~1997) Hyperparathyroidism (2013) Hypertension (~1997) Impingement syndrome of right shoulder Left knee DJD Lumbar spine pain Measles Obesity (BMI 30-39.9) ROSCOE (obstructive sleep apnea) Osteopenia Osteoporosis Pneumonia Ribs, multiple fractures Shoulder pain (2014) Sternal fracture (2014) Unilateral primary osteoarthritis, left knee Urinary incontinence (2012) Vertigo (2011) Surgical History Anesthesia complication H/O lumpectomy H/O mastectomy History of fusion of cervical spine (2011) History of knee replacement (2006) History of lumbar spinal fusion (2009) History of lumbar spinal fusion Hx of bilateral cataract extraction Status post left knee replacement Family & Social History Family History Father Hypertension High cholesterol Pneumonia Mother Hypertension Mental health problem Stroke History of hip surgery Grandfather Heart disease Hypertension High cholesterol Grandmother Hypertension High cholesterol Social History: household members spouse Tobacco & Substance use: Smoking Status Never smoker alcohol intake current alcohol intake frequency holiday/special occasion Substance Use Type does not use Meds Home Medications and Allergies Home Medications Medication Instructions Recorded Confirmed Type pen needle, diabetic 31 gauge x #100 ea 03/03/18 01/22/22 Rx 5/16 (1st Tier Unifine Pentips) metformin 500 mg tablet,extended 1,000 mg PO DAILY 01/29/20 03/01/22 History release 24 hr insulin glargine 100 unit/mL (3 14 unit SUBCUT BEDTIME 06/14/20 03/01/22 History mL) subcutaneous pen (Tavonaglar KwzulayPen U-100 Insulin) sitagliptin 50 mg tablet (Januvia) 100 mg PO DAILY 06/14/20 03/01/22 History cholecalciferol (vitamin D3) 125 5,000 unit PO QDAY #0 caps 09/29/20 03/01/22 History mcg (5,000 unit) capsule coenzyme Q10 100 mg capsule 200 mg PO DAILY 09/29/20 03/01/22 History (CoQ-10) chlorthalidone 25 mg tablet 12.5 mg PO DAILY 07/03/21 03/01/22 History carvedilol 25 mg tablet See Rx Instructions .Route 07/11/21 03/01/22 Rx .COMPLEX #60 tabs glimepiride 4 mg tablet 8 mg PO QAM 07/26/21 03/01/22 History vitamins A,C,C-jotm-rosnbv 14,320 1 cap PO BID 07/26/21 03/01/22 History unit-226 mg-200 unit capsule (PreserVision AREDS) insulin aspart U-100 100 unit/mL 5 - 6 unit SUBCUT TIDWM 08/05/21 03/01/22 History (3 mL) subcutaneous pen (Novolog Flexpen U-100 Insulin aspart) amlodipine 10 mg tablet 5 mg PO DAILY #90 tabs 08/08/21 03/01/22 Rx escitalopram oxalate 10 mg tablet 10 mg PO QDAY #90 tabs 08/08/21 03/01/22 Rx (Lexapro) atorvastatin 10 mg tablet (Lipitor) 10 mg PO HS #90 tabs 09/19/21 03/01/22 Rx gabapentin 300 mg capsule 900 mg PO BEDTIME #270 caps 09/19/21 03/01/22 Rx losartan 100 mg tablet 100 mg PO BEDTIME #90 tabs 09/19/21 03/01/22 Rx blood sugar diagnostic (Blood #200 ea 10/19/21 01/22/22 Rx Glucose Test strips) zolpidem 10 mg tablet 5 mg PO BEDTIME PRN sleep #30 tabs 12/22/21 01/22/22 Rx sodium sul 1.479 gram-potas ch See Rx Instructions PO PER PKG DIR 01/31/22 Rx 0.188 gram-magnes sul 0.225 gram #24 tabs tablet (Sutab) Allergies Allergy/AdvReac Type Severity Reaction Status Date / Time Anesthetics - Amide Type - Allergy Severe PROJECTILE Verified 03/01/22 08:32 Select A VOMITING [Anesthetics - Amide Type] Anesthetics - Keke Type- Allergy Severe PROJECTILE Verified 03/01/22 08:32 Parabens VOMITING [Anesthetics - Keke Type] ibuprofen Allergy Intermediate gastic Verified 03/01/22 08:32 bleed Exam Vital Signs (past 8 hours): - 03/01/22 08:48 Temperature 98.2 F Pulse Rate 74 Respiratory Rate 16 Blood Pressure 117/75 Pulse Oximetry 98 Oxygen Delivery Method Room Air Oxygen Delivery Method Room Air Const General: comfortable Resp Effort & Inspection: normal respiratory effort Assessment & Plan Assessment and plan (1) Change in bowel function: Status: Acute Plan We reviewed the risks and benefits of colonoscopy for colon cancer screening and she would like to proceed. We also discussed her change in bowel habits. She thinks it may be her SSRI and she wants to try to stop that as an experiment which I think is a good idea. I also advised her to increase her dietary. Time Spent With Patient Critical Care time: I spent a total of [] minutes of critical care time on this patient's care today; this time is exclusive of procedural time.
[2022-03-01] MEDS: fentaNYL 100 MCG/2 ML INJ 175 MCG IV (09:40)
[2022-03-01] MEDS: MIDAZOLAM 5 MG/5 ML VIAL 6 MG IV (09:40)
--- NOTE | 2022-03-01 09:59 | P.OP.COLON_ITS ---
Operative Date/Time/Diagnoses Date of procedure: 03/01/22 Time of procedure: 09:59 Pre-op diagnosis: Colon cancer screening Post-op diagnosis: same Procedure & Clinicians Study performed: Colonoscopy Surgeon: Saravanan Atkinson Procedure Notes Procedure in detail: Surgeon: Saravanan Atkinson MD Procedure: The patient was brought to the endoscopy suite, placed in left lateral decubitus position. The patient was connected to monitoring devices. A time-out was performed. Sedation was administered. Once the patient was a dequately sedated, a digital rectal exam was performed and was normal. The scope was then inserted and advanced to the cecum where the appendiceal orifice was identified and photographed. The scope was then slowly withdrawn over greater than 6 minutes. The mucosa was thoroughly inspected. There were 2 polyps in the descending colon each about 6 mm. One was removed with hot snare and 1 was removed with cold snare. The scope was retroflexed in the rectum. No abnormalities were noted. The scope was straightened and removed. The patient was awakened and brought to recovery. Versed: 6 mg Fentanyl: 175 mcg EBL: 5 mL Findings: 2 descending colon polyps each less 1 cm Sedation minutes: 16 Post-procedure Recommendations: Will call with biopsy results Disposition: PACU
== END 2022-03-01 10:49 | disposition home or self-care (01) ==
PROVIDERS: Family Provider Family Medicine; PCP Family Medicine; Referring Provider Surgery; Visit Provider Surgery
PROC: 0DJD8ZZ Inspection of Lower Intestinal Tract, Via Natural or Artificial Opening Endoscopic (ICD-10-PCS; CPT 45378; principal; 2022-03-01 09:15)
DX: Z12.11 Encounter for screening for malignant neoplasm of colon (principal); D12.4 Benign neoplasm of descending colon
CPT/HCPCS: 45385; 99152; J2250; J3010

== ENCOUNTER → 2022-04-02 08:14 | Outpatient (CLI) | payer MEDICARE, OTHER, SELFPAY ==
[2021-08-14 12:08] VITALS: BMI 32.9
--- NOTE | 2022-04-02 08:38 | DI.US.S_ITS ---
PROCEDURE: US ABDOMEN LIMITED INDICATIONS: Change in bowel habits TECHNIQUE: Real-time scanning was performed of the abdominal and retroperitoneal organs, with image documentation. COMPARISON: None. FINDINGS: Liver: Liver is normal in size and homogeneous in echotexture. Gallbladder: The gallbladder wall measures 1.8 m diameter. No stones, sludge, pericholecystic fluid, or sonographic Mensah sign. Biliary ducts: Intrahepatic bile ducts are non-dilated. Extrahepatic bile duct caliber measures 6.3 mm. Normal is 6-7 mm or less in diameter, or 10 mm or less post-cholecystectomy. Pancreas: Visualized portions of the pancreas are sonographically normal. IMPRESSION: No cholelithiasis or findings to suggest choledocholithiasis or acute cholecystitis. Dictated by: Bing Gomes M.D. on 04/02/2022 at 10:08 Approved by: Bing Gomes M.D. on 04/02/2022 at 10:10
== END ==
PROVIDERS: Family Provider Family Medicine; PCP Family Medicine; Referring Provider Surgery; Visit Provider Surgery
DX: R19.8 Other specified symptoms and signs involving the digestive system and abdomen (principal)
CPT/HCPCS: 76705

== ENCOUNTER → 2022-05-24 15:55 | Outpatient (CLI) | payer MEDICARE, OTHER, SELFPAY ==
[2021-08-14 12:08] VITALS: BMI 32.9
[2022-05-24 16:49] LABS: Influenza A - CEPHEID Flu A NEGATIVE (NEGATIVE); Influenza B - CEPHEID Flu B NEGATIVE (NEGATIVE); Respiratory Syncytial Virus Negative (Negative)
[2022-05-24 16:59] LABS: COVID-19 CEPHEID 4-PLEX PCR Negative (Negative)
== END ==
PROVIDERS: Family Provider Family Medicine; PCP Family Medicine; Visit Provider Physician Assistant Medical
DX: J06.9 Acute upper respiratory infection, unspecified (principal); Z20.822 Contact with and (suspected) exposure to COVID-19
CPT/HCPCS: 0241U

== ENCOUNTER 2022-06-13 15:24 | Inpatient (IN) | payer MEDICARE, OTHER, SELFPAY ==
[2021-08-14 12:08] VITALS: BMI 32.9
[2022-06-13] VITALS (14 sets, daily range): BP systolic 134–169; BP diastolic 63–78; PULSE 69–79; RESP 16–39; TEMP 36.8–37.5; O2SAT 94–99; BMI 30.5
--- NOTE | 2022-06-13 16:10 | DI.RAD.S_ITS ---
PROCEDURE: XR CHEST 1V INDICATIONS: suspected sepsis TECHNIQUE: One view of the chest was acquired. COMPARISON: [facility], CT, CT CHEST WO CON, 06/13/2022, 17:22. [facility], CR, XR CHEST 1V, 08/04/2021, 17:32. [facility], CR, XR CHEST 2V, 09/29/2020, 11:13. FINDINGS: Surgical changes and devices: ACDF. Left axillary clips. Lumbar spine hardware. Lungs and pleura: Lungs are clear. No pleural effusions or pneumothorax. Mediastinum: Mediastinal contours appear normal. Heart size is normal. Bones and chest wall: No suspicious bony lesions identified. Overlying soft tissues appear unremarkable. IMPRESSION: No acute cardiopulmonary abnormality identified. Dictated by: Anuel King M.D. on 06/13/2022 at 17:43 Approved by: Anuel King M.D. on 06/13/2022 at 17:45
--- NOTE | 2022-06-13 16:26 | ED.WOUNDLAC ---
HPI - Wound/Laceration <Michelle Berman [facility] - Last Filed: 06/13/22 18:12> General Chief Complaint: Wound/Laceration Stated Complaint: surgery site infection/surgery date 87 Time Seen by Provider: 06/13/22 16:15 History of Present Illness HPI narrative: This is a 76-year-old female with history of breast cancer status post mastectomy and radiation most recently 2 years ago, lumpectomy, peptic ulcer disease, hyperlipidemia, hypertension, osteoporosis, lumbar radicular pain, CKD with baseline creatinine of 1.3 who presents to the emergency department complaining of 6 days of erythema, purulence drainage, now complains of chills, night sweats, dehydration, and symptoms concerning for cellulitis with abscess, and postsurgical wound infection. Patient denies nausea, vomiting, measured fever or altered mental status however she states that she feels miserable, has had worsening pain, it feels like fire and she has started to feel ill. Related Data Home Medications Medication Instructions Recorded Confirmed metformin 500 mg tablet,extended 1,000 mg PO DAILY 01/29/20 06/11/22 release 24 hr insulin glargine 100 unit/mL (3 14 unit SUBCUT BEDTIME 06/14/20 06/11/22 mL) subcutaneous pen (Basaglar KwikPen U-100 Insulin) sitagliptin phosphate 50 mg tablet 100 mg PO DAILY 06/14/20 06/11/22 (Januvia) cholecalciferol (vitamin D3) 125 5,000 unit PO QDAY #0 caps 09/29/20 06/11/22 mcg (5,000 unit) capsule coenzyme Q10 100 mg capsule 200 mg PO DAILY 09/29/20 06/11/22 (CoQ-10) chlorthalidone 25 mg tablet 12.5 mg PO DAILY 07/03/21 06/11/22 glimepiride 4 mg tablet 8 mg PO QAM 07/26/21 06/11/22 vitamins A,C,L-qefc-qogstd 14,320 1 cap PO BID 07/26/21 06/11/22 unit-226 mg-200 unit capsule (PreserVision AREDS) insulin aspart U-100 100 unit/mL 5 - 6 unit SUBCUT TIDWM 08/05/21 06/11/22 (3 mL) subcutaneous pen (Novolog Flexpen U-100 Insulin aspart) Previous Rx's Medication Instructions Recorded pen needle, diabetic 31 gauge x #100 ea 03/03/18 5/16 (1st Tier Unifine Pentips) carvedilol 25 mg tablet See Rx Instructions .Route 07/11/21 .COMPLEX #60 tabs amlodipine 10 mg tablet 5 mg PO DAILY #90 tabs 08/08/21 escitalopram oxalate 10 mg tablet 10 mg PO QDAY #90 tabs 08/08/21 (Lexapro) atorvastatin 10 mg tablet (Lipitor) 10 mg PO HS #90 tabs 09/19/21 gabapentin 300 mg capsule 900 mg PO BEDTIME #270 caps 09/19/21 losartan 100 mg tablet 100 mg PO BEDTIME #90 tabs 09/19/21 sodium sul 1.479 gram-potas ch See Rx Instructions PO PER PKG DIR 01/31/22 0.188 gram-magnes sul 0.225 gram #24 tabs tablet (Sutab) blood sugar diagnostic (Blood #200 ea 04/30/22 Glucose Test strips) famotidine 40 mg tablet 40 mg PO BEDTIME #30 tabs 05/24/22 ondansetron 4 mg disintegrating 4 mg PO Q8H PRN nausea and 05/24/22 tablet vomiting #10 tabs doxycycline hyclate 100 mg tablet 100 mg PO BID 10 days #20 tabs 06/11/22 zolpidem 10 mg tablet 5 mg PO BEDTIME PRN sleep #30 tabs 06/11/22 Allergies Allergy/AdvReac Type Severity Reaction Status Date / Time Anesthetics - Amide Type - Allergy Severe PROJECTILE Verified 06/11/22 14:19 Select A VOMITING [Anesthetics - Amide Type] Anesthetics - Keke Type- Allergy Severe PROJECTILE Verified 06/11/22 14:19 Parabens VOMITING [Anesthetics - Keke Type] ibuprofen Allergy Intermediate gastic Verified 06/11/22 14:19 bleed Review of Systems <ALEXSANDER Harkins - Last Filed: 06/13/22 18:12> Review of Systems ROS Unobtainable: All systems reviewed & are unremarkable except as noted in HPI and below Patient History <ALEXSANDER Harkins - Last Filed: 06/13/22 18:12> Medical History Acute upper GI bleed Anxiety Breast cancer (1992) Breast cancer, left breast (2017) Cataract (2010) Chicken pox Diabetes mellitus (~1987) Fractures GERD (gastroesophageal reflux disease) Hayfever (~1959) History of recurrent ear infection Hyperlipidemia (~1997) Hyperparathyroidism (2013) Hypertension (~1997) Impingement syndrome of right shoulder Lumbar spine pain Measles Obesity (BMI 30-39.9) ROSCOE (obstructive sleep apnea) Osteopenia Osteoporosis Pneumonia Shoulder pain (2014) Sternal fracture (2014) Unilateral primary osteoarthritis, left knee Urinary incontinence (2012) Vertigo (2011) Surgical History Anesthesia complication H/O lumpectomy H/O mastectomy History of fusion of cervical spine (2011) History of knee replacement (2006) History of lumbar spinal fusion (2009) History of lumbar spinal fusion Hx of bilateral cataract extraction Status post left knee replacement Family History Father Hypertension High cholesterol Pneumonia Mother Hypertension Mental health problem Stroke History of hip surgery Grandfather Heart disease Hypertension High cholesterol Grandmother Hypertension High cholesterol Social History marital status: household members: spouse occupational status: other Smoking Status: Never smoker alcohol intake: current substance use type: does not use Smoking Status: Never smoker alcohol intake frequency: holidays/special occasions only Substance Use Type: does not use Exam <ALEXSANDER Harkins - Last Filed: 06/13/22 18:12> Narrative Exam Narrative: Reviewed vitals signs and nursing notes. General: cooperative, comfortable, patient is obviously distressed, uncomfortable, without diaphoresis, well groomed HEENT: symmetrical facial expressions, moist mucous membranes, no anterior cervical lymphadenopathy, neck is supple, left chest with lymphangitis and firm and exquisitely tender to palpation, erythema covering all areas with scarring approximately 7 cm x 6 cm with crusted discharge in the center, pressure over the crust expresses purulent drainage, Chest: Left chest status post mastectomy with large area of erythema, mild fluctuance with crusting and pus, left axillary lymphadenopathy and palpable tenderness, no vesicular lesions or dermatomal expression of erythema Cardiovascular: regular rate and rhythm, no peripheral edema, warm extremities Respiratory: normal effort, able to speak in complete sentences, without wheezing, stridor, or abnormal breath sounds. No retractions or tachypnea. GI: abdomen soft, nontender to palpation, nondistended, without masses, rebound tenderness or exquisite tenderness with exam. MSK: moves all extremities, neurovascularly intact, no weakness, normal tone Skin: brisk capillary refill, without pallor, see above Neuro: normal speech and cognition, A&O x3, ambulatory, clear speech Psych: mental status is grossly normal, congruent mood, normal affect, pleasant and cooperative Initial Vital Signs Initial Vital Signs: Vital Signs Temperature 98.8 F 06/13/22 15:30 Pulse Rate 79 06/13/22 15:30 Respiratory Rate 16 06/13/22 15:30 Blood Pressure 165/68 H 06/13/22 15:30 Pulse Oximetry 99 06/13/22 15:30 Oxygen Delivery Method 06/13/22 15:30 <Eyad Bustillos DO - Last Filed: 06/13/22 18:15> Initial Vital Signs Initial Vital Signs: Vital Signs Temperature 98.8 F 06/13/22 15:30 Pulse Rate 79 06/13/22 15:30 Respiratory Rate 16 06/13/22 15:30 Blood Pressure 165/68 H 06/13/22 15:30 Pulse Oximetry 99 06/13/22 15:30 Oxygen Delivery Method 06/13/22 15:30 Course <ALEXSANDER Harkins - Last Filed: 06/13/22 18:12> Orders Ordered: ED Orders 06/13/22 16:10 XR chest 1V Stat EKG-12 Lead Stat 06/13/22 16:30 A1C [Hemoglobin A1C% w Est Avg Glu] Urgent CRP [C-Reactive Protein Quant] Stat Complete Blood Count AUTO DIFF Stat Comprehensive Metabolic Panel Stat ESR [Erythrocyte Sedimentation Rate] Stat Lactate (Lactic Acid) Stat Lipase Stat Magnesium Stat Partial Thromboplastin Time Stat Procalcitonin Stat Prothrombin Time INR Stat Wound Culture and Gram Stain Stat 06/13/22 16:50 Covid-19 + FLU A/B + RSV - PCR Stat 06/13/22 17:02 Blood Culture Stat 06/13/22 17:08 CT chest wo con Stat MRSA (Nasal) PCR Stat 06/14/22 05:00 BMP [Basic Metabolic Panel] DAILY CBC Auto Diff [Complete Blood Count AUTO DIFF] DAILY 06/15/22 05:00 BMP [Basic Metabolic Panel] DAILY CBC Auto Diff [Complete Blood Count AUTO DIFF] DAILY 06/16/22 05:00 BMP [Basic Metabolic Panel] DAILY CBC Auto Diff [Complete Blood Count AUTO DIFF] DAILY Acetaminophen (Acetaminophen 325 Mg Tablet) 650 mg PO Q6H PRN PRN Reason: Fever/Mild Pain (1-3) Amlodipine Besylate (Amlodipine 5 Mg Tablet) 5 mg PO DAILY [facility] Atorvastatin Calcium (Atorvastatin 20 Mg Tablet) 10 mg PO BEDTIME YAJAIRA Carvedilol (Carvedilol 12.5 Mg Tablet) 25 mg PO BID [facility] Dextrose (Dextrose 50 % In Water 25 Gm/50 Ml Syringe) 25 gm IV PRN PRN PRN Reason: Hypoglycemia Escitalopram Oxalate (Escitalopram 10 Mg Tablet) 10 mg PO DAILY [facility] Famotidine (Famotidine 20 Mg Tablet) 40 mg PO BEDTIME YAJAIRA Gabapentin (Gabapentin 300 Mg Capsule) 600 mg PO BEDTIME YAJAIRA Hydromorphone HCl (Hydromorphone 0.5 Mg Inj) 0.5 mg IV Q4H PRN PRN Reason: Pain, Moderate (4-6) Magnesium Sulfate (Magnesium Sulfate) 2 gm in 50 mls @ 25 mls/hr IV NOW ONE Stop: 06/13/22 19:07 Vancomycin HCl (Vancomycin) 1,250 mg in 250 mls @ 250 mls/hr IV NOW ONE Stop: 06/13/22 18:29 Sodium Chloride (Normal Saline 0.9%) 1,000 mls @ 100 mls/hr IV CONT [facility] Stop: 06/14/22 05:14 Meropenem 1 gm/ Sodium (Chloride) 100 mls @ 200 mls/hr IV Q12H [facility] Clindamycin Phosphate (Cleocin) 600 mg in 50 mls @ 50 mls/hr IV Q8H [facility] Insulin Glargine (Insulin Glargine 100 Unit/Ml 3ml Pen) 10 unit SUBCUT BEDTIME [facility] Insulin Human Lispro (Insulin Lispro 100 Unit/Ml 3ml Vial) 0 unit SUBCUT ACHS YAJAIRA; Protocol Melatonin (Melatonin 3 Mg Tablet) 6 mg PO BEDTIME PRN PRN Reason: Insomnia Naloxone HCl (Naloxone 0.4 Mg/Ml Vial) 0.2 mg IV Q2MIN PRN PRN Reason: Opiate Reversal Oxycodone HCl (Oxycodone Ir 5 Mg Tablet) 5 mg PO Q4HR PRN PRN Reason: Pain, Moderate (4-6) Polyethylene Glycol (Polyethylene Glycol 3350 17 Gm Powd.Pack) 17 gm PO DAILY PRN PRN Reason: Constipation Sennosides (Sennosides 8.6 Mg Tablet) 8.6 mg PO BID PRN PRN Reason: Constipation Vancomycin HCl (Vancomycin Per Pharmacy) 1 request MISC NOW ONE Stop: 06/13/22 18:03 Zolpidem Tartrate (Zolpidem 5 Mg Tablet) 5 mg PO BEDTIME PRN PRN Reason: sleep Discontinued Medications Acetaminophen (Acetaminophen 325 Mg Tablet) 650 mg PO NOW ONE Stop: 06/13/22 16:42 Heparin Sodium (Porcine) (Heparin 5,000 Unit/Ml Vial) 5,000 unit SUBCUT BID YAJAIRA Hydromorphone HCl (Hydromorphone 0.5 Mg Inj) 0.5 mg IV NOW ONE Stop: 06/13/22 16:42 Last Admin: 06/13/22 17:14 Dose: 0.5 mg Documented By: WILFRED Sodium Chloride (Normal Saline 0.9%) 1,000 mls @ 1,000 mls/hr IV BOLUS ONE Stop: 06/13/22 17:38 Last Admin: 06/13/22 16:45 Dose: 1,000 mls/hr Documented By: WILFRED Cefepime HCl 2 gm/ Sodium (Chloride) 100 mls @ 200 mls/hr IV NOW ONE Stop: 06/13/22 17:09 Last Admin: 06/13/22 17:14 Dose: 200 mls/hr Documented By: WILFRED Cefepime HCl 1 gm/ Sodium (Chloride) 100 mls @ 200 mls/hr IV Q12H YAJAIRA Oxycodone/Acetaminophen (Oxycodone/Acetaminophen 5/325 Tablet) 1 tab PO NOW ONE Stop: 06/13/22 16:42 Potassium Chloride (Potassium Chloride 20 Meq Tab) 40 meq PO NOW ONE Stop: 06/13/22 17:15 Vancomycin HCl (Vancomycin Per Pharmacy) 1 request MISC NOW ONE Stop: 06/13/22 17:09 Vital Signs Vital signs: Vital Signs - 8 hr 06/13/22 15:30 Temperature 98.8 F Pulse Rate 79 Respiratory Rate 16 Blood Pressure 165/68 H Pulse Oximetry 99 Oxygen Delivery Method Room Air <DO Dee George Last Filed: 06/13/22 18:15> Orders Ordered: ED Orders 06/13/22 16:10 XR chest 1V Stat EKG-12 Lead Stat 06/13/22 16:30 A1C [Hemoglobin A1C% w Est Avg Glu] Urgent CRP [C-Reactive Protein Quant] Stat Complete Blood Count AUTO DIFF Stat Comprehensive Metabolic Panel Stat ESR [Erythrocyte Sedimentation Rate] Stat Lactate (Lactic Acid) Stat Lipase Stat Magnesium Stat Partial Thromboplastin Time Stat Procalcitonin Stat Prothrombin Time INR Stat Wound Culture and Gram Stain Stat 06/13/22 16:50 Covid-19 + FLU A/B + RSV - PCR Stat 06/13/22 17:02 Blood Culture Stat 06/13/22 17:08 CT chest wo con Stat MRSA (Nasal) PCR Stat 06/14/22 05:00 BMP [Basic Metabolic Panel] DAILY CBC Auto Diff [Complete Blood Count AUTO DIFF] DAILY 06/15/22 05:00 BMP [Basic Metabolic Panel] DAILY CBC Auto Diff [Complete Blood Count AUTO DIFF] DAILY 06/16/22 05:00 BMP [Basic Metabolic Panel] DAILY CBC Auto Diff [Complete Blood Count AUTO DIFF] DAILY Acetaminophen (Acetaminophen 325 Mg Tablet) 650 mg PO Q6H PRN PRN Reason: Fever/Mild Pain (1-3) Amlodipine Besylate (Amlodipine 5 Mg Tablet) 5 mg PO DAILY YAJAIRA Atorvastatin Calcium (Atorvastatin 20 Mg Tablet) 10 mg PO BEDTIME YAJAIRA Carvedilol (Carvedilol 12.5 Mg Tablet) 25 mg PO BID YA[facility] Dextrose (Dextrose 50 % In Water 25 Gm/50 Ml Syringe) 25 gm IV PRN PRN PRN Reason: Hypoglycemia Escitalopram Oxalate (Escitalopram 10 Mg Tablet) 10 mg PO DAILY YA[facility]A Famotidine (Famotidine 20 Mg Tablet) 40 mg PO BEDTIME YAJAIRA Gabapentin (Gabapentin 300 Mg Capsule) 600 mg PO BEDTIME YAJAIRA Hydromorphone HCl (Hydromorphone 0.5 Mg Inj) 0.5 mg IV Q4H PRN PRN Reason: Pain, Moderate (4-6) Magnesium Sulfate (Magnesium Sulfate) 2 gm in 50 mls @ 25 mls/hr IV NOW ONE Stop: 06/13/22 19:07 Vancomycin HCl (Vancomycin) 1,250 mg in 250 mls @ 250 mls/hr IV NOW ONE Stop: 06/13/22 18:29 Sodium Chloride (Normal Saline 0.9%) 1,000 mls @ 100 mls/hr IV CONT YAJAIRA Stop: 06/14/22 05:14 Meropenem 1 gm/ Sodium (Chloride) 100 mls @ 200 mls/hr IV Q12H [facility] Clindamycin Phosphate (Cleocin) 600 mg in 50 mls @ 50 mls/hr IV Q8H [facility] Insulin Glargine (Insulin Glargine 100 Unit/Ml 3ml Pen) 10 unit SUBCUT BEDTIME Y[facility]IRA Insulin Human Lispro (Insulin Lispro 100 Unit/Ml 3ml Vial) 0 unit SUBCUT ACHS YAJAIRA; Protocol Melatonin (Melatonin 3 Mg Tablet) 6 mg PO BEDTIME PRN PRN Reason: Insomnia Naloxone HCl (Naloxone 0.4 Mg/Ml Vial) 0.2 mg IV Q2MIN PRN PRN Reason: Opiate Reversal Oxycodone HCl (Oxycodone Ir 5 Mg Tablet) 5 mg PO Q4HR PRN PRN Reason: Pain, Moderate (4-6) Polyethylene Glycol (Polyethylene Glycol 3350 17 Gm Powd.Pack) 17 gm PO DAILY PRN PRN Reason: Constipation Sennosides (Sennosides 8.6 Mg Tablet) 8.6 mg PO BID PRN PRN Reason: Constipation Vancomycin HCl (Vancomycin Per Pharmacy) 1 request MISC NOW ONE Stop: 06/13/22 18:03 Zolpidem Tartrate (Zolpidem 5 Mg Tablet) 5 mg PO BEDTIME PRN PRN Reason: sleep Discontinued Medications Acetaminophen (Acetaminophen 325 Mg Tablet) 650 mg PO NOW ONE Stop: 06/13/22 16:42 Heparin Sodium (Porcine) (Heparin 5,000 Unit/Ml Vial) 5,000 unit SUBCUT BID [facility] Hydromorphone HCl (Hydromorphone 0.5 Mg Inj) 0.5 mg IV NOW ONE Stop: 06/13/22 16:42 Last Admin: 06/13/22 17:14 Dose: 0.5 mg Documented By: WILFRED Sodium Chloride (Normal Saline 0.9%) 1,000 mls @ 1,000 mls/hr IV BOLUS ONE Stop: 06/13/22 17:38 Last Admin: 06/13/22 16:45 Dose: 1,000 mls/hr Documented By: WILFRED Cefepime HCl 2 gm/ Sodium (Chloride) 100 mls @ 200 mls/hr IV NOW ONE Stop: 06/13/22 17:09 Last Admin: 06/13/22 17:14 Dose: 200 mls/hr Documented By: WILFRED Cefepime HCl 1 gm/ Sodium (Chloride) 100 mls @ 200 mls/hr IV Q12H [facility] Oxycodone/Acetaminophen (Oxycodone/Acetaminophen 5/325 Tablet) 1 tab PO NOW ONE Stop: 06/13/22 16:42 Potassium Chloride (Potassium Chloride 20 Meq Tab) 40 meq PO NOW ONE Stop: 06/13/22 17:15 Vancomycin HCl (Vancomycin Per Pharmacy) 1 request MISC NOW ONE Stop: 06/13/22 17:09 Vital Signs Vital signs: Vital Signs - 8 hr 06/13/22 15:30 Temperature 98.8 F Pulse Rate 79 Respiratory Rate 16 Blood Pressure 165/68 H Pulse Oximetry 99 Oxygen Delivery Method Room Air MDM - Wound/Laceration <ALEXSANDER Harkins - Last Filed: 06/13/22 18:12> Lab Data Lab results narrative: [facility] CLIA ID [id number] [address] [place] [address] RUN DATE: 06/13/22 Specimen Inquiry PAGE 1 RUN TIME: 1742 Name: Lois Barakat Age/Sex: 76/F Attend Dr: Kenrick William D.O. Unit#: [id number] : 1945Location: AC 90A-1 Re06/13/22 Disch: Status: ADM IN SPEC #: [id number] PUNEET: 06/13/22 STATUS: RES REQ #: [id number] SPDESC: RECD: 06/13/22-[address]: Michelle Berman SOURCE: Chest ENTR: 06/13/22-[address]: Sylvie Roy D.O. FAX TO: ORDERED: WOUND Cx and GS Procedure Result Verified Site Gram Stain Final 06/13/22-1714 White blood cells Few poly WBCs Gram Positive Cocci 3+ Aerobic Culture for wounds Pending Anaerobic Culture Pending Result diagrams: 06/13/22 16:30 06/13/22 16:30 Labs: Lab Results 0106/13/22 06/13/22 Range/Units 16:30 16:30 16:30 WBC 11.4 H (4.5-11.0) X10^3/uL RBC 3.94 L (4.0-5.2) X10^6/uL Hgb 11.0 L (12.0-16.0) g/dL Hct 33.6 L (36-46) % MCV 85.2 (80-100) fL MCH 27.8 (26-34) PG MCHC 32.6 (30-36) % RDW 13.4 (11.6-14.8) % Plt Count 304 (150-400) X10^3/uL Neut % (Auto) 79.0 H (50-75) % Lymph % (Auto) 8.4 L (25-40) % Archuleta % (Auto) 10.5 (3-14) % Eos % (Auto) 1.0 L (2-4) % Baso % (Auto) 1.1 (0-2) % Neut # (Auto) 9000 H (8585-3655) /uL Lymph # (Auto) 1000 L (8114-3506) /uL Archuleta # (Auto) 1200 H (0-900) /uL Eos # (Auto) 100 (0-450) /uL Baso # (Auto) 100 (0-100) /uL ESR (0-20) MM/HR PT 14.2 H (10.1-12.7) SECONDS INR 1.2 (0.9-1.3) APTT 24 L (26-36) SECONDS Sodium 136 L (137-145) mmol/L Potassium 3.5 (3.4-5.1) mmol/L Chloride 96 L (98-107) mmol/L Carbon Dioxide 28 (22-32) mmol/L BUN 28 H (7-17) mg/dL Creatinine 1.49 H (0.52-1.04) mg/dL Estimated GFR 36 L (>60) mL/min BUN/Creatinine Ratio 18.8 (6-22) Glucose 186 H (80-110) mg/dL Hemoglobin A1c (4.0-6.0) % Lactate (0.7-2.1) mmol/L Calcium 9.0 (8.4-10.2) mg/dL Magnesium (1.6-2.3) mg/dL Total Bilirubin 0.7 (0.2-1.3) mg/dL AST 23 (14-36) IU/L ALT 23 (<35) IU/L Alkaline Phosphatase 94 (38-126) U/L C-Reactive Protein (<1.0) mg/dL Total Protein 7.7 (6.3-8.2) g/dL Albumin 3.9 (3.5-5.0) g/dL Globulin 3.8 (1.7-4.1) g/dL Albumin/Globulin Ratio 1.0 (1.0-2.8) Lipase 283 (23-300) U/L Procalcitonin 0.07 (<0.5) ng/mL SARS-CoV-2 (PCR) (Negative) Influenza A (RT-PCR) (NEGATIVE) Influenza B (RT-PCR) (NEGATIVE) RSV (PCR) (Negative) 06/13/22 06/13/22 06/13/22 Range/Units 16:30 16:30 16:30 WBC (4.5-11.0) X10^3/uL RBC (4.0-5.2) X10^6/uL Hgb (12.0-16.0) g/dL Hct (36-46) % MCV (80-100) fL MCH (26-34) PG MCHC (30-36) % RDW (11.6-14.8) % Plt Count (150-400) X10^3/uL Neut % (Auto) (50-75) % Lymph % (Auto) (25-40) % Archuleta % (Auto) (3-14) % Eos % (Auto) (2-4) % Baso % (Auto) (0-2) % Neut # (Auto) (4015-4143) /uL Lymph # (Auto) (3236-4487) /uL Archuleta # (Auto) (0-900) /uL Eos # (Auto) (0-450) /uL Baso # (Auto) (0-100) /uL ESR 66 H (0-20) MM/HR PT (10.1-12.7) SECONDS INR (0.9-1.3) APTT (26-36) SECONDS Sodium (137-145) mmol/L Potassium (3.4-5.1) mmol/L Chloride (98-107) mmol/L Carbon Dioxide (22-32) mmol/L BUN (7-17) mg/dL Creatinine (0.52-1.04) mg/dL Estimated GFR (>60) mL/min BUN/Creatinine Ratio (6-22) Glucose (80-110) mg/dL Hemoglobin A1c (4.0-6.0) % Lactate 1.5 (0.7-2.1) mmol/L Calcium (8.4-10.2) mg/dL Magnesium 1.5 L (1.6-2.3) mg/dL Total Bilirubin (0.2-1.3) mg/dL AST (14-36) IU/L ALT (<35) IU/L Alkaline Phosphatase (38-126) U/L C-Reactive Protein 6.1 H (<1.0) mg/dL Total Protein (6.3-8.2) g/dL Albumin (3.5-5.0) g/dL Globulin (1.7-4.1) g/dL Albumin/Globulin Ratio (1.0-2.8) Lipase (23-300) U/L Procalcitonin (<0.5) ng/mL SARS-CoV-2 (PCR) (Negative) Influenza A (RT-PCR) (NEGATIVE) Influenza B (RT-PCR) (NEGATIVE) RSV (PCR) (Negative) 06/13/22 06/13/22 Range/Units 16:30 16:50 WBC (4.5-11.0) X10^3/uL RBC (4.0-5.2) X10^6/uL Hgb (12.0-16.0) g/dL Hct (36-46) % MCV (80-100) fL MCH (26-34) PG MCHC (30-36) % RDW (11.6-14.8) % Plt Count (150-400) X10^3/uL Neut % (Auto) (50-75) % Lymph % (Auto) (25-40) % Archuleta % (Auto) (3-14) % Eos % (Auto) (2-4) % Baso % (Auto) (0-2) % Neut # (Auto) (8325-3825) /uL Lymph # (Auto) (7540-1952) /uL Archuleta # (Auto) (0-900) /uL Eos # (Auto) (0-450) /uL Baso # (Auto) (0-100) /uL ESR (0-20) MM/HR PT (10.1-12.7) SECONDS INR (0.9-1.3) APTT (26-36) SECONDS Sodium (137-145) mmol/L Potassium (3.4-5.1) mmol/L Chloride (98-107) mmol/L Carbon Dioxide (22-32) mmol/L BUN (7-17) mg/dL Creatinine (0.52-1.04) mg/dL Estimated GFR (>60) mL/min BUN/Creatinine Ratio (6-22) Glucose (80-110) mg/dL Hemoglobin A1c 7.2 H (4.0-6.0) % Lactate (0.7-2.1) mmol/L Calcium (8.4-10.2) mg/dL Magnesium (1.6-2.3) mg/dL Total Bilirubin (0.2-1.3) mg/dL AST (14-36) IU/L ALT (<35) IU/L Alkaline Phosphatase (38-126) U/L C-Reactive Protein (<1.0) mg/dL Total Protein (6.3-8.2) g/dL Albumin (3.5-5.0) g/dL Globulin (1.7-4.1) g/dL Albumin/Globulin Ratio (1.0-2.8) Lipase (23-300) U/L Procalcitonin (<0.5) ng/mL SARS-CoV-2 (PCR) Negative (Negative) Influenza A (RT-PCR) Flu a negative (NEGATIVE) Influenza B (RT-PCR) Flu b negative (NEGATIVE) RSV (PCR) Negative (Negative) Imaging Data CT scan - chest: Radiologist's Impression: PROCEDURE:? CT CHEST WO CON ? INDICATIONS:? abscess to left chest ? TECHNIQUE: Noncontrast 5 mm thick sections acquired from the pulmonary apices to the posterior costophrenic angles.? 1 mm lung window, 5 mm thick coronal and sagittal and 7 mm axial MIP reformats were then acquired.? For radiation dose reduction, the following was used:? automated exposure control, adjustment of mA and/or kV according to patient size.? ? COMPARISON:? [facility], CT, CT CHEST WO CON, 10/14/2019, 13:40. ? FINDINGS:? Image quality:? Excellent.? ? Lungs and pleura:? No acute air space opacities.? No pleural effusions or pneumothorax.? Central and peripheral airways are patent and normal in caliber.? ? Mediastinum:? Heart size is normal.? No pericardial effusion.? No mediastinal adenopathy by size criteria.? Thoracic aorta and central pulmonary arteries are normal in size.? Esophagus is normal in caliber.? No hiatal hernia.? ? Bones and chest wall:? There is gas containing focus within the left anterior chest wall measuring roughly 60 mm transverse with moderate surrounding fat stranding.? Soft tissue density within the left anteroinferior chest wall is present inferior to the gas containing focus.? No suspicious bony lesions.? No vertebral body compression fractures.? No axillary or supraclavicular adenopathy by size criteria.? Thyroid gland is within normal limits on noncontrast imaging .? Multiple bilateral rib fractures, which appear chronic. ? Abdomen:? Visualized upper abdominal solid organs and bowel loops appear normal in the absence of contrast.? ? IMPRESSION:? 1. Gas containing focus within the left anterior chest wall, suggestive of infection with a gas producing organism.? Surgical consultation recommended. 2. Soft tissue swelling within the left anterior chest wall inferior to the gas containing focus, suggestive of infection or neoplasm.? ? ? Dictated by: Tushar Tran M.D. on 06/13/2022 at 17:40 ? ? Approved by: Tushar Tran M.D. on 06/13/2022 at 17:43 ? Chest x-ray: Radiologist's Impression: PROCEDURE:? XR CHEST 1V ? INDICATIONS:? suspected sepsis ? TECHNIQUE:? One view of the chest was acquired.? ? COMPARISON:? [facility], CT, CT CHEST WO CON, 06/13/2022, 17:22.? [facility], CR, XR CHEST 1V, 08/04/2021, 17:32.? [facility], CR, XR CHEST 2V, 09/29/2020, 11:13. ? FINDINGS:? ? Surgical changes and devices:? ACDF.? Left axillary clips.? Lumbar spine hardware. ? Lungs and pleura:? Lungs are clear.? No pleural effusions or pneumothorax.? ? Mediastinum:? Mediastinal contours appear normal.? Heart size is normal.? ? Bones and chest wall:? No suspicious bony lesions identified.? Overlying soft tissues appear unremarkable.? ? IMPRESSION:? No acute cardiopulmonary abnormality identified. ? ? Dictated by: Anuel King M.D. on 06/13/2022 at 17:43 ? ? Approved by: Anuel King M.D. on 06/13/2022 at 17:45 ? MDM Narrative Medical decision making narrative: CC: PUS draining from left chest This is a very pleasant 76-year-old female with history of breast cancer status post mastectomy and radiation most recently 2 years ago, lumpectomy, peptic ulcer disease, hyperlipidemia, hypertension, osteoporosis, lumbar radicular pain, CKD with baseline creatinine of 1.3 who presents to the emergency department complaining of 6 days of erythema, purulence drainage, now complains of chills, night sweats, dehydration, and symptoms concerning for cellulitis with abscess, and postsurgical wound infection. Differential diagnoses include, but are not limited to: Cellulitis, Bacterial infection, abscess, pseudomonal infection, sirs, sepsis with skin source, lymphangitic spread, necrotizing fasciitis. Data collected from: Patient and her Complicating co-morbidities: Diabetes, CKD, immuno compromised Social determinants of health that may impact treatment or disposition: none Course of Care: Met with patient when she got to room, lab work was completed prior to her arrival or available at least by the time I walked out of her room to see that she has a mild leukocytosis with a left shift, and my exam is pertinent for Erythema, exquisite tenderness and enlarged localized lymph nodes into her upper chest concerning for cellulitis and abscess with purulence drainage, wound culture obtained and sent for stat Gram stain and wound culture, Consulted with hospitalist, Dr. William who agrees to CT chest to evaluate for abscess and start on broad-spectrum antibiotics, blood cultures were obtained gram stain shows Gram-positive cocci with polyWBCs, will follow for chest CT Lab test results independently reviewed as above. Pertinent findings: Leukocytosis of 11.4 with a left shift, mild anemia, mild elevation of her creatinine from baseline of 1.3-1.49, GFR is 36 today, lactate is 1.5, hypomagnesemia 1.5, CRP is elevated at 6.1, procalcitonin is 0.07, ESR of 66, negative COVID, influenza and RSV PCR. Imaging studies independently reviewed: Chest x-ray, chest CT 174 patient's g stain came back with GPCs, 1800 CT chest came back with concern for gas producing organism in the left chest wound with surrounding soft tissue edema inferior to the gas containing foci, Consultation with General surgery Dr. Choi who is aware of CT, consultation was placed and hospitalist aware. Patient's antibiotics were changed to meropenum and clindamycin. Patient received 2 g of IV magnesium for hypomagnesemia, pain was treated with hydromorphone IV x1 Percocet p.o. x1, Tylenol 650 mg p.o. x1 and potassium K-Chlor 40 mEq p.o. x1. I have reviewed the patient's vital signs, past medical records and encounters if available, and nursing notes. Patient's symptoms improved over duration of stay with above-stated therapies. Diagnosis: Abscess and cellulitis of the left anterior chest with gas producing organism, hypomagnesemia Disposition: Admission I have spoken with the patient/family and discussed today?s findings whom verbalize understanding. Counseling was provided regarding the diagnosis and prognosis, and specific details were provided for the plan of care. Questions are addressed and there is agreement with the plan. Patient was informed of lab and imaging results, pertinent diagnoses, consulting physicians, and treatment plan. I have spoken with the patient in regard to admission, patient understands and agrees. I have communicated the patient's evaluation and treatment plan to the admitting physician who agrees with admission. All questions answered at this time. MIPS: This encounter doesn't have any diagnosis associated with MIPS criteria. I, ALEXSANDER Parham, personally performed the services described in the documentation, and it accurately records my words and actions. I collaborated with the ED attending physician for DARÍO level 2, 3, and some level 4s as needed Electronically signed by: ALEXSANDER Parham <Eyad Bustillos, DO - Last Filed: 06/13/22 18:15> Lab Data Labs: Lab Results 06/13/22 06/13/22 06/13/22 Range/Units 16:30 16:30 16:30 WBC 11.4 H (4.5-11.0) X10^3/uL RBC 3.94 L (4.0-5.2) X10^6/uL Hgb 11.0 L (12.0-16.0) g/dL Hct 33.6 L (36-46) % MCV 85.2 (80-100) fL MCH 27.8 (26-34) PG MCHC 32.6 (30-36) % RDW 13.4 (11.6-14.8) % Plt Count 304 (150-400) X10^3/uL Neut % (Auto) 79.0 H (50-75) % Lymph % (Auto) 8.4 L (25-40) % [place] % (Auto) 10.5 (3-14) % Eos % (Auto) 1.0 L (2-4) % Baso % (Auto) 1.1 (0-2) % Neut # (Auto) 9000 H (9380-6547) /uL Lymph # (Auto) 1000 L (2486-7067) /uL [place] # (Auto) 1200 H (0-900) /uL Eos # (Auto) 100 (0-450) /uL Baso # (Auto) 100 (0-100) /uL ESR (0-20) MM/HR PT 14.2 H (10.1-12.7) SECONDS INR 1.2 (0.9-1.3) APTT 24 L (26-36) SECONDS Sodium 136 L (137-145) mmol/L Potassium 3.5 (3.4-5.1) mmol/L Chloride 96 L (98-107) mmol/L Carbon Dioxide 28 (22-32) mmol/L BUN 28 H (7-17) mg/dL Creatinine 1.49 H (0.52-1.04) mg/dL Estimated GFR 36 L (>60) mL/min BUN/Creatinine Ratio 18.8 (6-22) Glucose 186 H (80-110) mg/dL Hemoglobin A1c (4.0-6.0) % Lactate (0.7-2.1) mmol/L Calcium 9.0 (8.4-10.2) mg/dL Magnesium (1.6-2.3) mg/dL Total Bilirubin 0.7 (0.2-1.3) mg/dL AST 23 (14-36) IU/L ALT 23 (<35) IU/L Alkaline Phosphatase 94 (38-126) U/L C-Reactive Protein (<1.0) mg/dL Total Protein 7.7 (6.3-8.2) g/dL Albumin 3.9 (3.5-5.0) g/dL Globulin 3.8 (1.7-4.1) g/dL Albumin/Globulin Ratio 1.0 (1.0-2.8) Lipase 283 (23-300) U/L Procalcitonin 0.07 (<0.5) ng/mL SARS-CoV-2 (PCR) (Negative) Influenza A (RT-PCR) (NEGATIVE) Influenza B (RT-PCR) (NEGATIVE) RSV (PCR) (Negative) 06/13/22 06/13/22 06/13/22 Range/Units 16:30 16:30 16:30 WBC (4.5-11.0) X10^3/uL RBC (4.0-5.2) X10^6/uL Hgb (12.0-16.0) g/dL Hct (36-46) % MCV (80-100) fL MCH (26-34) PG MCHC (30-36) % RDW (11.6-14.8) % Plt Count (150-400) X10^3/uL Neut % (Auto) (50-75) % Lymph % (Auto) (25-40) % [place] % (Auto) (3-14) % Eos % (Auto) (2-4) % Baso % (Auto) (0-2) % Neut # (Auto) (4930-0601) /uL Lymph # (Auto) (9054-2875) /uL [place] # (Auto) (0-900) /uL Eos # (Auto) (0-450) /uL Baso # (Auto) (0-100) /uL ESR 66 H (0-20) MM/HR PT (10.1-12.7) SECONDS INR (0.9-1.3) APTT (26-36) SECONDS Sodium (137-145) mmol/L Potassium (3.4-5.1) mmol/L Chloride (98-107) mmol/L Carbon Dioxide (22-32) mmol/L BUN (7-17) mg/dL Creatinine (0.52-1.04) mg/dL Estimated GFR (>60) mL/min BUN/Creatinine Ratio (6-22) Glucose (80-110) mg/dL Hemoglobin A1c (4.0-6.0) % Lactate 1.5 (0.7-2.1) mmol/L Calcium (8.4-10.2) mg/dL Magnesium 1.5 L (1.6-2.3) mg/dL Total Bilirubin (0.2-1.3) mg/dL AST (14-36) IU/L ALT (<35) IU/L Alkaline Phosphatase (38-126) U/L C-Reactive Protein 6.1 H (<1.0) mg/dL Total Protein (6.3-8.2) g/dL Albumin (3.5-5.0) g/dL Globulin (1.7-4.1) g/dL Albumin/Globulin Ratio (1.0-2.8) Lipase (23-300) U/L Procalcitonin (<0.5) ng/mL SARS-CoV-2 (PCR) (Negative) Influenza A (RT-PCR) (NEGATIVE) Influenza B (RT-PCR) (NEGATIVE) RSV (PCR) (Negative) 06/13/22 06/13/22 Range/Units 16:30 16:50 WBC (4.5-11.0) X10^3/uL RBC (4.0-5.2) X10^6/uL Hgb (12.0-16.0) g/dL Hct (36-46) % MCV (80-100) fL MCH (26-34) PG MCHC (30-36) % RDW (11.6-14.8) % Plt Count (150-400) X10^3/uL Neut % (Auto) (50-75) % Lymph % (Auto) (25-40) % [place] % (Auto) (3-14) % Eos % (Auto) (2-4) % Baso % (Auto) (0-2) % Neut # (Auto) (6976-1492) /uL Lymph # (Auto) (5798-3625) /uL [place] # (Auto) (0-900) /uL Eos # (Auto) (0-450) /uL Baso # (Auto) (0-100) /uL ESR (0-20) MM/HR PT (10.1-12.7) SECONDS INR (0.9-1.3) APTT (26-36) SECONDS Sodium (137-145) mmol/L Potassium (3.4-5.1) mmol/L Chloride (98-107) mmol/L Carbon Dioxide (22-32) mmol/L BUN (7-17) mg/dL Creatinine (0.52-1.04) mg/dL Estimated GFR (>60) mL/min BUN/Creatinine Ratio (6-22) Glucose (80-110) mg/dL Hemoglobin A1c 7.2 H (4.0-6.0) % Lactate (0.7-2.1) mmol/L Calcium (8.4-10.2) mg/dL Magnesium (1.6-2.3) mg/dL Total Bilirubin (0.2-1.3) mg/dL AST (14-36) IU/L ALT (<35) IU/L Alkaline Phosphatase (38-126) U/L C-Reactive Protein (<1.0) mg/dL Total Protein (6.3-8.2) g/dL Albumin (3.5-5.0) g/dL Globulin (1.7-4.1) g/dL Albumin/Globulin Ratio (1.0-2.8) Lipase (23-300) U/L Procalcitonin (<0.5) ng/mL SARS-CoV-2 (PCR) Negative (Negative) Influenza A (RT-PCR) Flu a negative (NEGATIVE) Influenza B (RT-PCR) Flu b negative (NEGATIVE) RSV (PCR) Negative (Negative) Discharge Plan Departure Patient Disposition: Admitted As Inpatient Clinical Impression: Abscess or cellulitis of chest wall, Left-shifted white blood cells, Hypomagnesemia, S/P left mastectomy, S/P radiation therapy Admit Date/Time: 06/13/22 17:15 Admit Provider: Kenrick William <Eyad Bustillos, DO - Last Filed: 06/13/22 18:15> Cosign ED Attending Cosignature Attestation: Dr Bustillos Co-Sign Statement: I was available for consultation during this patient's emergency department visit. This chart is signed by myself for administrative purposes only. I did not have direct contact with this patient during this visit. They were seen independently by the APC.
[2022-06-13 16:42] LABS: Add Manual Diff / Slide Review NO; Basophils Absolute Auto 100 /uL (0-100); Basophils Percent Auto 1.1 % (0-2); Eosinophils Absolute Auto 100 /uL (0-450); Hematocrit 33.6 % (36-46); Lymphocytes Absolute Auto 1000 /uL (1100-4500); Lymphocytes Percent Auto 8.4 % (25-40); Mean Corpuscular HGB Conc 32.6 % (30-36); Mean Corpuscular Hemoglobin 27.8 PG (26-34); Mean Corpuscular Volume 85.2 fL (80-100); Monocytes Absolute Auto 1200 /uL (0-900); Monocytes Percent Auto 10.5 % (3-14); Neutrophils Absolute Auto 9000 /uL (1500-7000); Platelet Count 304 X10^3/uL (150-400); Red Blood Cell Count 3.94 X10^6/uL (4.0-5.2); Red Cell Distribution Width 13.4 % (11.6-14.8); White Blood Cell Count 11.4 X10^3/uL (4.5-11.0)
[2022-06-13] MEDS: SODIUM CHLORIDE 0.9% 1,000 ML 1000 ML IV (16:45)
[2022-06-13 16:51] LABS: INR 1.2 (0.9-1.3); Prothrombin Time 14.2 SECONDS (10.1-12.7)
[2022-06-13 16:54] LABS: PTT Partial Thromboplastin Tim 24 SECONDS (26-36)
[2022-06-13 16:56] LABS: Alanine Aminotransferase 23 IU/L (<35); Albumin 3.9 g/dL (3.5-5.0); Alkaline Phosphatase 94 U/L (38-126); Aspartate Aminotransferase 23 IU/L (14-36); BUN Creatinine Ratio 18.8 (6-22); Bilirubin Total 0.7 mg/dL (0.2-1.3); Blood Urea Nitrogen 28 mg/dL (7-17); Carbon Dioxide 28 mmol/L (22-32); Chloride 96 mmol/L (98-107); Estimated Glomerular Filt Rate 36 mL/min (>60); Globulin 3.8 g/dL (1.7-4.1); Glucose 186 mg/dL (80-110); HEMOLYSIS < 15 (0-50); Lactate (Lactic Acid) 1.5 mmol/L (0.7-2.1); Lipase 283 U/L (23-300); Magnesium 1.5 mg/dL (1.6-2.3); Potassium 3.5 mmol/L (3.4-5.1); Sodium 136 mmol/L (137-145); Total Protein 7.7 g/dL (6.3-8.2)
--- NOTE | 2022-06-13 17:08 | DI.CT.S_ITS ---
PROCEDURE: CT CHEST WO CON INDICATIONS: abscess to left chest TECHNIQUE: Noncontrast 5 mm thick sections acquired from the pulmonary apices to the posterior costophrenic angles. 1 mm lung window, 5 mm thick coronal and sagittal and 7 mm axial MIP reformats were then acquired. For radiation dose reduction, the following was used: automated exposure control, adjustment of mA and/or kV according to patient size. COMPARISON: [facility], CT, CT CHEST WO CON, 10/14/2019, 13:40. FINDINGS: Image quality: Excellent. Lungs and pleura: No acute air space opacities. No pleural effusions or pneumothorax. Central and peripheral airways are patent and normal in caliber. Mediastinum: Heart size is normal. No pericardial effusion. No mediastinal adenopathy by size criteria. Thoracic aorta and central pulmonary arteries are normal in size. Esophagus is normal in caliber. No hiatal hernia. Bones and chest wall: There is gas containing focus within the left anterior chest wall measuring roughly 60 mm transverse with moderate surrounding fat stranding. Soft tissue density within the left anteroinferior chest wall is present inferior to the gas containing focus. No suspicious bony lesions. No vertebral body compression fractures. No axillary or supraclavicular adenopathy by size criteria. Thyroid gland is within normal limits on noncontrast imaging . Multiple bilateral rib fractures, which appear chronic. Abdomen: Visualized upper abdominal solid organs and bowel loops appear normal in the absence of contrast. IMPRESSION: 1. Gas containing focus within the left anterior chest wall, suggestive of infection with a gas producing organism. Surgical consultation recommended. 2. Soft tissue swelling within the left anterior chest wall inferior to the gas containing focus, suggestive of infection or neoplasm. Dictated by: Tushar Tran M.D. on 06/13/2022 at 17:40 Approved by: Tushar Tran M.D. on 06/13/2022 at 17:43
[2022-06-13 17:13] LABS: Procalcitonin 0.07 ng/mL (<0.5)
[2022-06-13] MEDS: HYDROMORPHONE 0.5 MG INJ IV (17:14)
[2022-06-13] MEDS: CEFEPIME 2 GM in SODIUM CHLORIDE 0.9% 100 ML IV (17:14)
[2022-06-13 17:33] LABS: C-Reactive Protein Quant 6.1 mg/dL (<1.0)
[2022-06-13 17:47] LABS: Erythrocyte Sedimentation Rate 66 MM/HR (0-20)
[2022-06-13 17:53] LABS: Influenza A - CEPHEID Flu A NEGATIVE (NEGATIVE); Influenza B - CEPHEID Flu B NEGATIVE (NEGATIVE); Respiratory Syncytial Virus Negative (Negative)
[2022-06-13 17:58] LABS: COVID-19 CEPHEID 4-PLEX PCR Negative (Negative)
[2022-06-13 18:03] LABS: Hemoglobin A1C% w Est Avg Glu 7.2 % (4.0-6.0)
--- NOTE | 2022-06-13 18:55 | P.HP_ITS ---
History of Present Illness History of Present Illness Date Patient Seen: 06/13/22 Time Patient Seen: 18:30 Chief complaint: surgery site infection/surgery date 87 Narrative: Ms. Barakat is a 76W with PMH left breast cancer x2, with first diagnosis in 1993 resulting in chemotherapy and radiation, she had recurrence approximately five years ago and then underwent mastectomy and another course of radiation, DM on insulin, HTN, CKD who presents to the hospital with left breast pain. She notes first having symptoms about six days ago with pain, redness noted. This p rogressed and she felt symptomatic fevers and began to notice purulent drainage. She also noted progressing fatigue, night sweats. She did see her PCP two days ago who prescribed her doxycycline which she has been taking since the night of 06/11. Because she was feeling worse she presented to the hospital. In the ED workup was done, vitals notable for afebrile, systolic blood pressure in the 130s, O2 sats in the 90s. Labs notable for WBC 11.4, hgb 11, plts 304. ESR 66. BUN 28, creatinine 1.49. a1c 7.2. CRP 6.1. Magnesium 1.5. Procal 0.07. Lactate 1.5. Chest xray negative for an acute process. CT chest was notable for gas containing focus within the left anterior chest wall, there was soft tissue swelling with the anterior chest wall inferior to gas containing focus. Antibiotics ordered. Surgery consult was obtained. She was admitted for further treatment. Patient History Medical History Acute upper GI bleed Anxiety Breast cancer (1992) Breast cancer, left breast (2016) Cataract (2010) Chicken pox Diabetes mellitus (~1987) Fractures GERD (gastroesophageal reflux disease) Hayfever (~1959) History of recurrent ear infection Hyperlipidemia (~1997) Hyperparathyroidism (2013) Hypertension (~1997) Impingement syndrome of right shoulder Lumbar spine pain Measles Obesity (BMI 30-39.9) ROSCOE (obstructive sleep apnea) Osteopenia Osteoporosis Pneumonia Shoulder pain (2014) Sternal fracture (2014) Unilateral primary osteoarthritis, left knee Urinary incontinence (2012) Vertigo (2011) Surgical History Anesthesia complication H/O lumpectomy H/O mastectomy History of fusion of cervical spine (2011) History of knee replacement (2006) History of lumbar spinal fusion (2009) History of lumbar spinal fusion Hx of bilateral cataract extraction Status post left knee replacement Family & Social History Family History Father Hypertension High cholesterol Pneumonia Mother Hypertension Mental health problem Stroke History of hip surgery Grandfather Heart disease Hypertension High cholesterol Grandmother Hypertension High cholesterol Social History: household members spouse Safety & Behavioral: Feels Safe in Current Yes Environment Been Physically Hurt or No Threatened By a Person Tobacco & Substance use: Smoking Status Never smoker alcohol intake current alcohol intake frequency holiday/special occasion Substance Use Type does not use Meds Home Medications and Allergies Home Medications Medication Instructions Recorded Confirmed Type pen needle, diabetic 31 gauge x #100 ea 03/03/18 06/11/22 Rx 5/16 (1st Tier Unifine Pentips) metformin 500 mg tablet,extended 1,000 mg PO DAILY 01/29/20 06/11/22 History release 24 hr insulin glargine 100 unit/mL (3 14 unit SUBCUT BEDTIME 06/14/20 06/11/22 History mL) subcutaneous pen (Basaglar KwikPen U-100 Insulin) sitagliptin phosphate 50 mg tablet 100 mg PO DAILY 06/14/20 06/11/22 History (Januvia) cholecalciferol (vitamin D3) 125 5,000 unit PO QDAY #0 caps 09/29/20 06/11/22 History mcg (5,000 unit) capsule coenzyme Q10 100 mg capsule 200 mg PO DAILY 09/29/20 06/11/22 History (CoQ-10) chlorthalidone 25 mg tablet 12.5 mg PO DAILY 07/03/21 06/11/22 History carvedilol 25 mg tablet See Rx Instructions .Route 07/11/21 06/11/22 Rx .COMPLEX #60 tabs glimepiride 4 mg tablet 8 mg PO QAM 07/26/21 06/11/22 History vitamins A,C,Q-dzfu-ioinpt 14,320 1 cap PO BID 07/26/21 06/11/22 History unit-226 mg-200 unit capsule (PreserVision AREDS) insulin aspart U-100 100 unit/mL 5 - 6 unit SUBCUT TIDWM 08/05/21 06/11/22 History (3 mL) subcutaneous pen (Novolog Flexpen U-100 Insulin aspart) amlodipine 10 mg tablet 5 mg PO DAILY #90 tabs 08/08/21 06/11/22 Rx escitalopram oxalate 10 mg tablet 10 mg PO QDAY #90 tabs 08/08/21 06/11/22 Rx (Lexapro) atorvastatin 10 mg tablet (Lipitor) 10 mg PO HS #90 tabs 09/19/21 06/11/22 Rx gabapentin 300 mg capsule 900 mg PO BEDTIME #270 caps 09/19/21 06/11/22 Rx losartan 100 mg tablet 100 mg PO BEDTIME #90 tabs 09/19/21 06/11/22 Rx sodium sul 1.479 gram-potas ch See Rx Instructions PO PER PKG DIR 01/31/22 06/11/22 Rx 0.188 gram-magnes sul 0.225 gram #24 tabs tablet (Sutab) blood sugar diagnostic (Blood #200 ea 04/30/22 06/11/22 Rx Glucose Test strips) famotidine 40 mg tablet 40 mg PO BEDTIME #30 tabs 05/24/22 06/11/22 Rx ondansetron 4 mg disintegrating 4 mg PO Q8H PRN nausea and 05/24/22 06/11/22 Rx tablet vomiting #10 tabs doxycycline hyclate 100 mg tablet 100 mg PO BID 10 days #20 tabs 06/11/22 06/11/22 Rx zolpidem 10 mg tablet 5 mg PO BEDTIME PRN sleep #30 tabs 06/11/22 06/11/22 Rx Allergies Allergy/AdvReac Type Severity Reaction Status Date / Time Anesthetics - Amide Type - Allergy Severe PROJECTILE Verified 06/11/22 14:19 Select A VOMITING [Anesthetics - Amide Type] Anesthetics - Keke Type- Allergy Severe PROJECTILE Verified 06/11/22 14:19 Parabens VOMITING [Anesthetics - Keke Type] ibuprofen Allergy Intermediate gastic Verified 06/11/22 14:19 bleed Review of Systems Review of Systems Narrative: 14 systems reviewed and negative aside from what is noted in HPI Exam Vital Signs (past 8 hours): - 06/13/22 15:30 06/13/22 18:24 Temperature 98.8 F Pulse Rate 79 71 Respiratory Rate 16 17 Blood Pressure 165/68 H 134/63 Pulse Oximetry 99 96 Oxygen Delivery Method Room Air Room Air Oxygen Delivery Method Room Air Narrative Exam Narrative: GEN: in some distress secondary to pain HEENT: moist mucous membranes, PERRL NECK: trachea midline, no JVD CHEST: left chest is post mastectomy, she has scar, she has thickening of skin, she has significant tenderness to palpation on the lateral portion of the breast, she has significant red and somewhat violaceous skin with no active drainage noted by me at this time, area of erythema is approximately 10cm by 5cm CV: regular rate and rhythm, no murmurs PULM: clear bilaterally, no wheezes, rhonchi, rales ABD: soft, nontender, nondistended, no organomegaly EXT: warm and well perfused with no edema Objective Labs Result Diagrams: 06/13/22 16:30 06/13/22 16:30 Labs: Laboratory Results - last 24 hr 06/13/22 06/13/22 06/13/22 16:30 16:30 16:30 WBC 11.4 H RBC 3.94 L Hgb 11.0 L Hct 33.6 L MCV 85.2 MCH 27.8 MCHC 32.6 RDW 13.4 Plt Count 304 Neut % (Auto) 79.0 H Lymph % (Auto) 8.4 L [place] % (Auto) 10.5 Eos % (Auto) 1.0 L Baso % (Auto) 1.1 Neut # (Auto) 9000 H Lymph # (Auto) 1000 L [place] # (Auto) 1200 H Eos # (Auto) 100 Baso # (Auto) 100 ESR PT 14.2 H INR 1.2 APTT 24 L Sodium 136 L Potassium 3.5 Chloride 96 L Carbon Dioxide 28 BUN 28 H Creatinine 1.49 H Estimated GFR 36 L BUN/Creatinine Ratio 18.8 Glucose 186 H Hemoglobin A1c Lactate Calcium 9.0 Magnesium Total Bilirubin 0.7 AST 23 ALT 23 Alkaline Phosphatase 94 C-Reactive Protein Total Protein 7.7 Albumin 3.9 Globulin 3.8 Albumin/Globulin Ratio 1.0 Lipase 283 Procalcitonin 0.07 SARS-CoV-2 (PCR) Influenza A (RT-PCR) Influenza B (RT-PCR) RSV (PCR) 06/13/22 06/13/22 06/13/22 16:30 16:30 16:30 WBC RBC Hgb Hct MCV MCH MCHC RDW Plt Count Neut % (Auto) Lymph % (Auto) [place] % (Auto) Eos % (Auto) Baso % (Auto) Neut # (Auto) Lymph # (Auto) [place] # (Auto) Eos # (Auto) Baso # (Auto) ESR 66 H PT INR APTT Sodium Potassium Chloride Carbon Dioxide BUN Creatinine Estimated GFR BUN/Creatinine Ratio Glucose Hemoglobin A1c Lactate 1.5 Calcium Magnesium 1.5 L Total Bilirubin AST ALT Alkaline Phosphatase C-Reactive Protein 6.1 H Total Protein Albumin Globulin Albumin/Globulin Ratio Lipase Procalcitonin SARS-CoV-2 (PCR) Influenza A (RT-PCR) Influenza B (RT-PCR) RSV (PCR) 06/13/22 06/13/22 16:30 16:50 WBC RBC Hgb Hct MCV MCH MCHC RDW Plt Count Neut % (Auto) Lymph % (Auto) [place] % (Auto) Eos % (Auto) Baso % (Auto) Neut # (Auto) Lymph # (Auto) [place] # (Auto) Eos # (Auto) Baso # (Auto) ESR PT INR APTT Sodium Potassium Chloride Carbon Dioxide BUN Creatinine Estimated GFR BUN/Creatinine Ratio Glucose Hemoglobin A1c 7.2 H Lactate Calcium Magnesium Total Bilirubin AST ALT Alkaline Phosphatase C-Reactive Protein Total Protein Albumin Globulin Albumin/Globulin Ratio Lipase Procalcitonin SARS-CoV-2 (PCR) Negative Influenza A (RT-PCR) Flu a negative Influenza B (RT-PCR) Flu b negative RSV (PCR) Negative Assessment & Plan Assessment & Plan narrative: 1. Breast cellulitis with concern for gas producing organism -exam consistent with breast cellulitis, on differential includes forming abscess, or possible nec fasc, less likely recurrent malignancy -CT shows gas in left chest, I personally reviewed CT myself -patient with cultures ordered, will follow up -for now continue broad spectrum antibiotics with vanc/meropenem, add clinda for possible toxin effects -NPO for possible surgical intervention -consulted surgery and discussed concern of possible nec fasc, per surgery does not appear consistent with nec fasc at this point, but may benefit from debridement 2. Type 2 Diabetes on insulin -hold oral medications -ordered for insulin, with sliding scale 3. CKD stage 2-3 -renal dose medications -trend creatinine daily 4. Hypertension -hold anti-hypertensives for now Case was discussed with surgeon and ED provider and did obtain additional information from patient's which supported the history. CODE: DNR Proxy: Stu Barth, spouse I have utilized all available resources to reconcile the patient's home medications Time Spent With Patient Critical Care time: I spent a total of [] minutes of critical care time on this patient's care today; this time is exclusive of procedural time. Quality MIPS - Admit I confirm the patient?s Advance Care Plan is present, Code status is documented, Surrogate decision maker is in patient?s record [If Yes, STOP here]: Yes
--- NOTE | 2022-06-13 18:56 | PM.CALLCOV.1 ---
Call Coverage Note Note Date of Patient Contact: 06/13/22 Narrative of Care Provided: case reviewed personally, not c/w nec fas. May benefit from OR wash out and debridement. Will see in am. Currently spontaneously draining and on broad spectrum antibiotic.
--- NOTE | 2022-06-13 19:09 | PC.NURSE ---
Admit Note Arrived to room 227 from ER at 1845, walked SBA to bed, steady on feet. Alert and oriented x3. Left chest with erythema, crusted yellow in the center at what appears to be old incision site. No drainage noted. Culture sent in ER. Erythema border marked on arrival. SpO2 96-98% RA. Denies shortness of breath. Oriented to room and to call light/bed/tv controls. Call light within reach. Report given to Nilda SWENSON.
[2022-06-13] MEDS: FAMOTIDINE 20 MG TABLET 40 MG PO (20:44)
[2022-06-13] MEDS: ATORVASTATIN 20 MG TABLET 10 MG PO (20:45)
[2022-06-13] MEDS: POTASSIUM CHLORIDE 20 MEQ TAB 40 MEQ PO (20:45)
[2022-06-13] MEDS: ACETAMINOPHEN 325 MG TABLET 650 MG PO (20:45)
[2022-06-13] MEDS: ZOLPIDEM 5 MG TABLET PO (20:46)
[2022-06-13] MEDS: VANCOMYCIN 1,250 MG/250 ML PIGGYBACK 250 MG IV (20:55)
[2022-06-13] MEDS: SODIUM CHLORIDE 0.9% 1,000 ML 100 ML IV (20:55)
[2022-06-13] MEDS: MAGNESIUM SULFATE 2 GM/50 ML PIGGYBACK IV (20:55)
[2022-06-13] MEDS: MEROPENEM 1 GM in SODIUM CHLORIDE 0.9% 100 ML IV (20:56)
[2022-06-13] MEDS: CLINDAMYCIN 600 MG/50 ML PIGGYBACK 50 MG IV (23:06)
[2022-06-14] VITALS (31 sets, daily range): BP systolic 103–197; BP diastolic 58–85; PULSE 67–80; RESP 7–42; TEMP 36.2–37.3; O2SAT 77–99
[2022-06-14] MEDS: HYDROMORPHONE 0.5 MG INJ IV ×4 (00:51→17:34)
--- NOTE | 2022-06-14 02:56 | PC.NURSE ---
Addendum entered by Nilda Coles R.N. 06/14/22 07:12: BG result 51 lab value, CBG checked to be 49, MD informed, 1/2 amp Detrose given per prn order, IVF changed to D5NS, CBG rechecked to be 131. Zofran given for nausea, scopalamine patch placed behind right ear. Original Note: Solutions Analyst Note-Patient is A/Ox4, asks appropriate questions. SR, afebrile. All abx administered, Mg+ sulfate given. IV Dilaudid given for Lt breast pain, Tylenol not effective. CBG 94, no insulin given, declines pm Lantus. SBA into BR. NPO after MN.
[2022-06-14 05:44] LABS: Add Manual Diff / Slide Review NO; Basophils Absolute Auto 100 /uL (0-100); Basophils Percent Auto 0.6 % (0-2); Eosinophils Absolute Auto 200 /uL (0-450); Eosinophils Percent Auto 1.9 % (2-4); Hematocrit 31.9 % (36-46); Hemoglobin 10.6 g/dL (12.0-16.0); Lymphocytes Absolute Auto 1200 /uL (1100-4500); Lymphocytes Percent Auto 13.6 % (25-40); Mean Corpuscular HGB Conc 33.1 % (30-36); Mean Corpuscular Hemoglobin 28.4 PG (26-34); Mean Corpuscular Volume 85.8 fL (80-100); Monocytes Absolute Auto 900 /uL (0-900); Monocytes Percent Auto 11.1 % (3-14); Neutrophils Absolute Auto 6200 /uL (1500-7000); Neutrophils Percent Auto 72.8 % (50-75); Platelet Count 296 X10^3/uL (150-400); Red Blood Cell Count 3.72 X10^6/uL (4.0-5.2); Red Cell Distribution Width 13.4 % (11.6-14.8); White Blood Cell Count 8.5 X10^3/uL (4.5-11.0)
[2022-06-14 05:45] LABS: HEMOLYSIS < 15 (0-50); Sodium 138 mmol/L (137-145)
[2022-06-14 05:46] LABS: BUN Creatinine Ratio 18.7 (6-22); Blood Urea Nitrogen 23 mg/dL (7-17); Calcium 8.5 mg/dL (8.4-10.2); Carbon Dioxide 29 mmol/L (22-32); Chloride 102 mmol/L (98-107); Estimated Glomerular Filt Rate 46 mL/min (>60); Glucose 51 mg/dL (80-110); Potassium 3.8 mmol/L (3.4-5.1)
[2022-06-14] MEDS: DEXTROSE 50 % IN WATER 25 GM/50 ML SYRINGE IV (06:15)
[2022-06-14] MEDS: ONDANSETRON 4 MG/2 ML INJ IV ×2 (06:27→12:05)
[2022-06-14] MEDS: SCOPOLAMINE 1 PATCH TOP (06:59)
[2022-06-14] MEDS: DEXTROSE 5%-0.9% NS 1,000 ML 84 ML IV ×2 (06:59→21:02)
[2022-06-14] MEDS: CLINDAMYCIN 600 MG/50 ML PIGGYBACK 50 MG IV ×2 (07:31→17:35)
[2022-06-14] MEDS: MEROPENEM 1 GM in SODIUM CHLORIDE 0.9% 100 ML IV (09:44)
--- NOTE | 2022-06-14 12:10 | P.PN_ITS ---
Subjective Subjective Date Patient Seen: 06/14/22 Time Patient Seen: 09:00 Interval history: Today she notes no significant change in her symptoms. She still feels tired. Her pain is slightly improved. Exam Vital Signs (past 8 hours): - 06/14/22 06:00 06/14/22 06:04 06/14/22 06:05 Pulse Rate 74 72 Respiratory Rate 33 H 38 H Blood Pressure 177/84 H Pulse Oximetry 93 95 Oxygen Delivery Method 06/14/22 07:00 Pulse Rate Respiratory Rate Blood Pressure Pulse Oximetry Oxygen Delivery Method Room Air Oxygen Delivery Method Room Air Narrative Exam Narrative: GEN: in some distress secondary to pain HEENT: moist mucous membranes, PERRL NECK: trachea midline, no JVD CHEST: left chest is post mastectomy, she has scar, she has thickening of skin, she has significant tenderness to palpation on the lateral portion of the breast, she has significant red and somewhat violaceous skin with no active drainage noted by me at this time, area of erythema is approximately 10cm by 5cm CV: regular rate and rhythm, no murmurs PULM: clear bilaterally, no wheezes, rhonchi, rales ABD: soft, nontender, nondistended, no organomegaly EXT: warm and well perfused with no edema Objective Labs Result Diagrams: 06/14/22 05:04 06/14/22 05:04 Labs: Laboratory Results - last 24 hr 06/13/22 06/13/22 06/13/22 16:30 16:30 16:30 WBC 11.4 H RBC 3.94 L Hgb 11.0 L Hct 33.6 L MCV 85.2 MCH 27.8 MCHC 32.6 RDW 13.4 Plt Count 304 Neut % (Auto) 79.0 H Lymph % (Auto) 8.4 L Hughes % (Auto) 10.5 Eos % (Auto) 1.0 L Baso % (Auto) 1.1 Neut # (Auto) 9000 H Lymph # (Auto) 1000 L Hughes # (Auto) 1200 H Eos # (Auto) 100 Baso # (Auto) 100 ESR PT 14.2 H INR 1.2 APTT 24 L Sodium 136 L Potassium 3.5 Chloride 96 L Carbon Dioxide 28 BUN 28 H Creatinine 1.49 H Estimated GFR 36 L BUN/Creatinine Ratio 18.8 Glucose 186 H Hemoglobin A1c Lactate Calcium 9.0 Magnesium Total Bilirubin 0.7 AST 23 ALT 23 Alkaline Phosphatase 94 C-Reactive Protein Total Protein 7.7 Albumin 3.9 Globulin 3.8 Albumin/Globulin Ratio 1.0 Lipase 283 Procalcitonin 0.07 Nasal Screen MRSA (PCR) SARS-CoV-2 (PCR) Influenza A (RT-PCR) Influenza B (RT-PCR) RSV (PCR) 06/13/22 06/13/22 06/13/22 16:30 16:30 16:30 WBC RBC Hgb Hct MCV MCH MCHC RDW Plt Count Neut % (Auto) Lymph % (Auto) Hughes % (Auto) Eos % (Auto) Baso % (Auto) Neut # (Auto) Lymph # (Auto) Hughes # (Auto) Eos # (Auto) Baso # (Auto) ESR 66 H PT INR APTT Sodium Potassium Chloride Carbon Dioxide BUN Creatinine Estimated GFR BUN/Creatinine Ratio Glucose Hemoglobin A1c Lactate 1.5 Calcium Magnesium 1.5 L Total Bilirubin AST ALT Alkaline Phosphatase C-Reactive Protein 6.1 H Total Protein Albumin Globulin Albumin/Globulin Ratio Lipase Procalcitonin Nasal Screen MRSA (PCR) SARS-CoV-2 (PCR) Influenza A (RT-PCR) Influenza B (RT-PCR) RSV (PCR) 06/13/22 06/13/22 06/13/22 16:30 16:50 18:55 WBC RBC Hgb Hct MCV MCH MCHC RDW Plt Count Neut % (Auto) Lymph % (Auto) Hughes % (Auto) Eos % (Auto) Baso % (Auto) Neut # (Auto) Lymph # (Auto) Hughes # (Auto) Eos # (Auto) Baso # (Auto) ESR PT INR APTT Sodium Potassium Chloride Carbon Dioxide BUN Creatinine Estimated GFR BUN/Creatinine Ratio Glucose Hemoglobin A1c 7.2 H Lactate Calcium Magnesium Total Bilirubin AST ALT Alkaline Phosphatase C-Reactive Protein Total Protein Albumin Globulin Albumin/Globulin Ratio Lipase Procalcitonin Nasal Screen MRSA (PCR) Negative for mrsa SARS-CoV-2 (PCR) Negative Influenza A (RT-PCR) Flu a negative Influenza B (RT-PCR) Flu b negative RSV (PCR) Negative 06/14/22 06/14/22 05:04 05:04 WBC 8.5 RBC 3.72 L Hgb 10.6 L Hct 31.9 L MCV 85.8 MCH 28.4 MCHC 33.1 RDW 13.4 Plt Count 296 Neut % (Auto) 72.8 Lymph % (Auto) 13.6 L Hughes % (Auto) 11.1 Eos % (Auto) 1.9 L Baso % (Auto) 0.6 Neut # (Auto) 6200 Lymph # (Auto) 1200 Hughes # (Auto) 900 Eos # (Auto) 200 Baso # (Auto) 100 ESR PT INR APTT Sodium 138 Potassium 3.8 Chloride 102 Carbon Dioxide 29 BUN 23 H Creatinine 1.23 H Estimated GFR 46 L BUN/Creatinine Ratio 18.7 Glucose 51 L D Hemoglobin A1c Lactate Calcium 8.5 Magnesium Total Bilirubin AST ALT Alkaline Phosphatase C-Reactive Protein Total Protein Albumin Globulin Albumin/Globulin Ratio Lipase Procalcitonin Nasal Screen MRSA (PCR) SARS-CoV-2 (PCR) Influenza A (RT-PCR) Influenza B (RT-PCR) RSV (PCR) [facility] Medical History Acute upper GI bleed Anxiety Breast cancer (1992) Breast cancer, left breast (2016) Cataract (2010) Chicken pox Diabetes mellitus (~1987) Fractures GERD (gastroesophageal reflux disease) Hayfever (~1959) History of recurrent ear infection Hyperlipidemia (~1997) Hyperparathyroidism (2013) Hypertension (~1997) Impingement syndrome of right shoulder Lumbar spine pain Measles Obesity (BMI 30-39.9) ROSCOE (obstructive sleep apnea) Osteopenia Osteoporosis Pneumonia Shoulder pain (2014) Sternal fracture (2014) Unilateral primary osteoarthritis, left knee Urinary incontinence (2012) Vertigo (2011) Surgical History Anesthesia complication H/O lumpectomy H/O mastectomy History of fusion of cervical spine (2011) History of knee replacement (2006) History of lumbar spinal fusion (2009) History of lumbar spinal fusion Hx of bilateral cataract extraction Status post left knee replacement Family History Father Hypertension High cholesterol Pneumonia Mother Hypertension Mental health problem Stroke History of hip surgery Grandfather Heart disease Hypertension High cholesterol Grandmother Hypertension High cholesterol Social History marital status: household members: spouse occupational status: other Smoking Status: Never smoker alcohol intake: current substance use type: does not use Assessment & Plan Assessment & Plan narrative: 1. Breast cellulitis with concern for gas producing organism -exam consistent with breast cellulitis, on differential includes forming abscess, or possible nec fasc, less likely recurrent malignancy -CT shows gas in left chest, I personally reviewed CT myself -patient with cultures ordered, will follow up -for now continue broad spectrum antibiotics with vanc/meropenem, add clinda for possible toxin effects -NPO today with plan for surgical debridement -consulted surgery and discussed concern of possible nec fasc, per surgery does not appear consistent with nec fasc at this point, but may benefit from debridement 2. Type 2 Diabetes on insulin -hold oral medications -ordered for insulin, with sliding scale 3. CKD stage 2-3 -renal dose medications -trend creatinine daily 4. Hypertension -hold anti-hypertensives for now Case was discussed with surgeon and ED provider and did obtain additional information from patient's which supported the history. CODE: DNR Proxy: Stu Barth, spouse I have utilized all available resources to reconcile the patient's home medications Time Spent With Patient Critical Care time: I spent a total of [] minutes of critical care time on this patient's care today; this time is exclusive of procedural time.
--- NOTE | 2022-06-14 14:07 | P.CONS_ITS ---
History of Present Illness Consult details Date Patient Seen: 06/14/22 Time Patient Seen: 14:08 Chief complaint: surgery site infection/surgery date 87 Reason for consult: abscess in old mastectomy site Requesting provider: Kenrick William Narrative: 4 days of increasing redness and pain of left mastectomy site. Did have radiation treatment as well several years out. Spontaneously drained yesterday. lymphadema in left arm. Meds Home Medications and Allergies Home Medications Medication Instructions Recorded Confirmed Type pen needle, diabetic 31 gauge x #100 ea 03/03/18 06/11/22 Rx 5/16 (1st Tier Unifine Pentips) metformin 500 mg tablet,extended 1,000 mg PO DAILY 01/29/20 06/14/22 History release 24 hr insulin glargine 100 unit/mL (3 14 unit SUBCUT BEDTIME 06/14/20 06/14/22 History mL) subcutaneous pen (Basaglar KwikPen U-100 Insulin) sitagliptin phosphate 50 mg tablet 50 mg PO DAILY 06/14/20 06/14/22 History (Januvia) cholecalciferol (vitamin D3) 125 5,000 unit PO QDAY #0 caps 09/29/20 06/14/22 History mcg (5,000 unit) capsule coenzyme Q10 100 mg capsule 200 mg PO DAILY 09/29/20 06/14/22 History (CoQ-10) chlorthalidone 25 mg tablet 12.5 mg PO DAILY 07/03/21 06/14/22 History carvedilol 25 mg tablet See Rx Instructions .Route 07/11/21 06/14/22 Rx .COMPLEX #60 tabs glimepiride 4 mg tablet 8 mg PO QAM 07/26/21 06/14/22 History vitamins A,C,P-syai-gwcxtp 14,320 1 cap PO BID 07/26/21 06/14/22 History unit-226 mg-200 unit capsule (PreserVision AREDS) insulin aspart U-100 100 unit/mL 5 - 6 unit SUBCUT TIDWM 08/05/21 06/14/22 History (3 mL) subcutaneous pen (Novolog Flexpen U-100 Insulin aspart) amlodipine 10 mg tablet 5 mg PO DAILY #90 tabs 08/08/21 06/14/22 Rx escitalopram oxalate 10 mg tablet 10 mg PO QDAY #90 tabs 08/08/21 06/14/22 Rx (Lexapro) atorvastatin 10 mg tablet (Lipitor) 10 mg PO HS #90 tabs 09/19/21 06/14/22 Rx gabapentin 300 mg capsule 900 mg PO BEDTIME #270 caps 09/19/21 06/14/22 Rx losartan 100 mg tablet 100 mg PO BEDTIME #90 tabs 09/19/21 06/14/22 Rx sodium sul 1.479 gram-potas ch See Rx Instructions PO PER PKG DIR 01/31/22 06/11/22 Rx 0.188 gram-magnes sul 0.225 gram #24 tabs tablet (Sutab) blood sugar diagnostic (Blood #200 ea 04/30/22 06/11/22 Rx Glucose Test strips) famotidine 40 mg tablet 40 mg PO BEDTIME #30 tabs 05/24/22 06/14/22 Rx ondansetron 4 mg disintegrating 4 mg PO Q8H PRN nausea and 05/24/22 06/14/22 Rx tablet vomiting #10 tabs doxycycline hyclate 100 mg tablet 100 mg PO BID 10 days #20 tabs 06/11/22 06/11/22 Rx zolpidem 10 mg tablet 5 mg PO BEDTIME PRN sleep #30 tabs 06/11/22 06/14/22 Rx Allergies Allergy/AdvReac Type Severity Reaction Status Date / Time Anesthetics - Amide Type - Allergy Severe PROJECTILE Verified 06/11/22 14:19 Select A VOMITING [Anesthetics - Amide Type] Anesthetics - Keke Type- Allergy Severe PROJECTILE Verified 06/11/22 14:19 Parabens VOMITING [Anesthetics - Keke Type] ibuprofen Allergy Intermediate gastic Verified 06/11/22 14:19 bleed Review of Systems Review of Systems Narrative: itching from the antibiotics. ROS: Yes All systems reviewed with the patient and are negative except as other rojo documented Exam Vital Signs (past 8 hours): - 06/14/22 07:00 Oxygen Delivery Method Room Air Oxygen Delivery Method Room Air Const General: cooperative and comfortable HENMT Head: normal to inspection, normocephalic and atraumatic Eyes General: appearance normal, both eyes and all related structures Sclera: sclerae normal Neck Neck: normal visual inspection and trachea midline Chest Other: red and tender left breast old mastectomy site. Resp Effort & Inspection: normal respiratory effort and able to speak in complete sentences Cardio Rate: tachycardic Rhythm: regular rhythm GI Inspection: normal to inspection Skin General: atrophy and ecchymosis Neuro General: patient alert, patient awake and patient oriented x3 Cognition: normal cognition Psych Appearance: grossly normal Mental Status: mental status grossly normal Judgment: judgment good Objective Labs Result Diagrams: 06/14/22 05:04 06/14/22 05:04 Labs: Laboratory Results - last 24 hr 06/13/22 06/13/22 06/13/22 16:30 16:30 16:30 WBC 11.4 H RBC 3.94 L Hgb 11.0 L Hct 33.6 L MCV 85.2 MCH 27.8 MCHC 32.6 RDW 13.4 Plt Count 304 Neut % (Auto) 79.0 H Lymph % (Auto) 8.4 L Karnes % (Auto) 10.5 Eos % (Auto) 1.0 L Baso % (Auto) 1.1 Neut # (Auto) 9000 H Lymph # (Auto) 1000 L Karnes # (Auto) 1200 H Eos # (Auto) 100 Baso # (Auto) 100 ESR PT 14.2 H INR 1.2 APTT 24 L Sodium 136 L Potassium 3.5 Chloride 96 L Carbon Dioxide 28 BUN 28 H Creatinine 1.49 H Estimated GFR 36 L BUN/Creatinine Ratio 18.8 Glucose 186 H Hemoglobin A1c Lactate Calcium 9.0 Magnesium Total Bilirubin 0.7 AST 23 ALT 23 Alkaline Phosphatase 94 C-Reactive Protein Total Protein 7.7 Albumin 3.9 Globulin 3.8 Albumin/Globulin Ratio 1.0 Lipase 283 Procalcitonin 0.07 Nasal Screen MRSA (PCR) SARS-CoV-2 (PCR) Influenza A (RT-PCR) Influenza B (RT-PCR) RSV (PCR) 06/13/22 06/13/22 06/13/22 16:30 16:30 16:30 WBC RBC Hgb Hct MCV MCH MCHC RDW Plt Count Neut % (Auto) Lymph % (Auto) Karnes % (Auto) Eos % (Auto) Baso % (Auto) Neut # (Auto) Lymph # (Auto) Karnes # (Auto) Eos # (Auto) Baso # (Auto) ESR 66 H PT INR APTT Sodium Potassium Chloride Carbon Dioxide BUN Creatinine Estimated GFR BUN/Creatinine Ratio Glucose Hemoglobin A1c Lactate 1.5 Calcium Magnesium 1.5 L Total Bilirubin AST ALT Alkaline Phosphatase C-Reactive Protein 6.1 H Total Protein Albumin Globulin Albumin/Globulin Ratio Lipase Procalcitonin Nasal Screen MRSA (PCR) SARS-CoV-2 (PCR) Influenza A (RT-PCR) Influenza B (RT-PCR) RSV (PCR) 06/13/22 06/13/22 06/13/22 16:30 16:50 18:55 WBC RBC Hgb Hct MCV MCH MCHC RDW Plt Count Neut % (Auto) Lymph % (Auto) Karnes % (Auto) Eos % (Auto) Baso % (Auto) Neut # (Auto) Lymph # (Auto) Karnes # (Auto) Eos # (Auto) Baso # (Auto) ESR PT INR APTT Sodium Potassium Chloride Carbon Dioxide BUN Creatinine Estimated GFR BUN/Creatinine Ratio Glucose Hemoglobin A1c 7.2 H Lactate Calcium Magnesium Total Bilirubin AST ALT Alkaline Phosphatase C-Reactive Protein Total Protein Albumin Globulin Albumin/Globulin Ratio Lipase Procalcitonin Nasal Screen MRSA (PCR) Negative for mrsa SARS-CoV-2 (PCR) Negative Influenza A (RT-PCR) Flu a negative Influenza B (RT-PCR) Flu b negative RSV (PCR) Negative 06/14/22 06/14/22 05:04 05:04 WBC 8.5 RBC 3.72 L Hgb 10.6 L Hct 31.9 L MCV 85.8 MCH 28.4 MCHC 33.1 RDW 13.4 Plt Count 296 Neut % (Auto) 72.8 Lymph % (Auto) 13.6 L Karnes % (Auto) 11.1 Eos % (Auto) 1.9 L Baso % (Auto) 0.6 Neut # (Auto) 6200 Lymph # (Auto) 1200 Karnes # (Auto) 900 Eos # (Auto) 200 Baso # (Auto) 100 ESR PT INR APTT Sodium 138 Potassium 3.8 Chloride 102 Carbon Dioxide 29 BUN 23 H Creatinine 1.23 H Estimated GFR 46 L BUN/Creatinine Ratio 18.7 Glucose 51 L D Hemoglobin A1c Lactate Calcium 8.5 Magnesium Total Bilirubin AST ALT Alkaline Phosphatase C-Reactive Protein Total Protein Albumin Globulin Albumin/Globulin Ratio Lipase Procalcitonin Nasal Screen MRSA (PCR) SARS-CoV-2 (PCR) Influenza A (RT-PCR) Influenza B (RT-PCR) RSV (PCR) [facility] Medical History Acute upper GI bleed Anxiety Breast cancer (1992) Breast cancer, left breast (2017) Cataract (2010) Chicken pox Diabetes mellitus (~1987) Fractures GERD (gastroesophageal reflux disease) Hayfever (~1959) History of recurrent ear infection Hyperlipidemia (~1997) Hyperparathyroidism (2013) Hypertension (~1997) Impingement syndrome of right shoulder Lumbar spine pain Measles Obesity (BMI 30-39.9) ROSCOE (obstructive sleep apnea) Osteopenia Osteoporosis Pneumonia Shoulder pain (2014) Sternal fracture (2014) Unilateral primary osteoarthritis, left knee Urinary incontinence (2012) Vertigo (2011) Surgical History Anesthesia complication H/O lumpectomy H/O mastectomy History of fusion of cervical spine (2011) History of knee replacement (2006) History of lumbar spinal fusion (2009) History of lumbar spinal fusion Hx of bilateral cataract extraction Status post left knee replacement Family History Father Hypertension High cholesterol Pneumonia Mother Hypertension Mental health problem Stroke History of hip surgery Grandfather Heart disease Hypertension High cholesterol Grandmother Hypertension High cholesterol Social History marital status: household members: spouse occupational status: other Tobacco & Substance Use Smoking Status: Never smoker alcohol intake: current substance use type: does not use Assessment & Plan Assessment & Plan narrative: Left chest wall abscess in old mastectomy site. S/p radiation, +lymphedema in left arm. Plan: I and D in OR. COVID-19 COVID-19 status: Negative Time Spent With Patient Critical Care time: I spent a total of [] minutes of critical care time on this patient's care today; this time is exclusive of procedural time.
--- NOTE | 2022-06-14 14:53 | CM.DANOTE ---
DCP: Assessment, 76 yo hx breast cx, left breast cellulitis, with possible Necrotic Fascitis. This CM met with pt in her room and explained role. Pt, and son present. Pt states that she uses a 4ww at home at baseline sometimes when she wants to take things from one room to another. Pt reports that she lives with her and resides in [place], [place]. She states that DPOA paperwork is on file with this hospital and pt's and son are appointed. Pt reports that she does drive at baseline. She reports that she has a friend staying at her house for the last 15days that she has been caring for s/p surgery. PCP: Dr. Roy Insurance: Medicare; [facility] P: As of now plan per pt request once medically stable is home with no services. Awaiting PT/OT recommendations. Discharge Planning/Care Management CM Discharge Assessment Start: 06/14/22 14:46 Freq: Status: Active Protocol: Document 06/14/22 14:46 ARVIND (Rec: 06/14/22 14:53 ARVIND [id number]) Discharge Planning Assessment Assigned Lab Technologist Toña Paige RN Case Manager Advance Directives? Yes Advance Directives on File No History Provided By Patient,Significant Other, Medical Record Prior Living Arrangements House Household Members spouse Type of transporation used prior to Drives own vehicle admit Independent with ADL's Yes Is patient alert and oriented? Yes Caregiver for Another Yes: Friend who had recent surgery is staying with pt at her home DME Already Rented / Owned FWW / Walker Barriers to Discharge No Comment Pt reports that when discharged she will not need services. Discharge Plan Home Transportation Arrangement Spouse to provide transport. Referrals Initiated None needed Whiteboard Updated in Patient Room with Yes name and ext. # of Lab Technologist Review Status In Process Next Review Type Continued Stay Review
--- NOTE | 2022-06-14 15:36 | PM.OP.1 ---
Operative Date/Time/Diagnoses Date of procedure: 06/14/22 Time of procedure: 15:36 Pre-op diagnosis: left chest wall abscess Post-op diagnosis: same Procedure & Clinicians Procedure: I and D left chest wall abscess Same procedure as scheduled: Yes Indications: abscess Surgeon: Eliza Choi Click Yes if Unassisted: Yes Anesthesia Type: General Operative Notes Findings: left mastectomy site abscess Specimen(s): other (culture) Estimated Blood Loss (mL): 20 Procedure in detail: Preop diagnosis: Left breast abscess Postop diagnosis: Same Operative procedure I&D of left breast/chest wall abscess. Surgeon geraldine Choi MD Findings: [place] indurated scarred chest wall tissue status post radiation. Small pocket of foul-smelling watery fluid which was cultured. Appears the majority of the abscess drained spontaneously. Entire area of radiation scarring was investigated with multiple incisions. Procedure: Patient placed in a supine position. Prepped and draped sterile fashion expose her left chest wall. Incisions were created in multiple sites with a tonsil I mobilized the subcutaneous tissue to drain any fluid that remained. Only a small amount of foul-smelling watery liquid was discovered. No room for drain placement. Longest incision was approximately 4 cm in length and was closed with a running 4-0 PDS. All others were left open. Dry dressings were placed after a covering of Vaseline gauze. Patient was awakened, extubated, taken to recovery room in stable condition. Needle, instrument, sponge counts were correct. Blood loss: 20 mL Specimen: Wound culture left chest wall Complications: none Post-operative Condition: stable Disposition: PACU
--- NOTE | 2022-06-14 16:18 | SUR.OPER ---
Supine on padded OR stretcher, head on pillow, arms at side right side rail up left arm tucked with sheet, legs uncrossed, tape over blanket over lower legs.
--- NOTE | 2022-06-14 16:24 | PC.NURSE ---
Addendum entered by Beatrice Fletcher R.N. 06/14/22 18:34: Pt returned from surgery @ 1720 c/o pain 03/12 Just shoot me BP 190/80 HR 110, only given NORCO for pain in PACU. this nurse administer .5 of Dilaudid as noted in emar to no effect. Dr William gave one time order for 50mg of fentanyl. Pt sleeping at this time. Bed low and locked, call light within reach, will continue to monitor Original Note: Day shift note: A/O x4, VSS, sleeping most of the day, OOB to bathroom with minimal assistance, able to ambulate on her own although she uses a FWW at home, using IV pump for assistance here. Medicated throughout the day for pain and nausea, see emar for times. NPO pending I&D this afternoon. Uses call light appropriately, bed low and locked 1530 taken via wheelchair to surgery, no further pt contact at this time.
[2022-06-14] MEDS: HYDROCODONE/ACET 5/325 TABLET 1 TAB PO (17:05)
[2022-06-14] MEDS: MEROPENEM 500 MG in SODIUM CHLORIDE 0.9% 100 ML 200 MG IV (17:47)
[2022-06-14] MEDS: fentaNYL 100 MCG/2 ML INJ 50 MCG IV (18:42)
[2022-06-14] MEDS: VANCOMYCIN 1,250 MG/250 ML PIGGYBACK 250 MG IV (19:54)
[2022-06-14] MEDS: diphenhydrAMINE 25 MG TABLET 50 MG PO (20:36)
[2022-06-14] MEDS: OXYCODONE IR 5 MG TABLET 10 MG PO (20:36)
[2022-06-14] MEDS: ATORVASTATIN 20 MG TABLET 10 MG PO (20:36)
[2022-06-14] MEDS: INSULIN GLARGINE 100 UNIT/ML 3ML PEN 10 UNIT SUBCUT (20:37)
[2022-06-14] MEDS: FAMOTIDINE 20 MG TABLET PO (20:37)
[2022-06-15] VITALS (25 sets, daily range): BP systolic 133–192; BP diastolic 52–81; PULSE 65–85; RESP 15–27; TEMP 36.4–38.1; O2SAT 83–98
[2022-06-15] MEDS: MEROPENEM 500 MG in SODIUM CHLORIDE 0.9% 100 ML 200 MG IV ×3 (01:46→17:16)
[2022-06-15] MEDS: CLINDAMYCIN 600 MG/50 ML PIGGYBACK 50 MG IV ×3 (02:38→18:03)
[2022-06-15 05:22] LABS: Add Manual Diff / Slide Review NO; Basophils Absolute Auto 100 /uL (0-100); Basophils Percent Auto 0.6 % (0-2); Eosinophils Absolute Auto 100 /uL (0-450); Eosinophils Percent Auto 1.1 % (2-4); Hematocrit 30.3 % (36-46); Hemoglobin 10.2 g/dL (12.0-16.0); Lymphocytes Absolute Auto 700 /uL (1100-4500); Lymphocytes Percent Auto 5.5 % (25-40); Mean Corpuscular HGB Conc 33.5 % (30-36); Mean Corpuscular Hemoglobin 28.4 PG (26-34); Mean Corpuscular Volume 84.9 fL (80-100); Monocytes Absolute Auto 1000 /uL (0-900); Monocytes Percent Auto 8.2 % (3-14); Neutrophils Absolute Auto 10500 /uL (1500-7000); Neutrophils Percent Auto 84.6 % (50-75); Platelet Count 325 X10^3/uL (150-400); Red Blood Cell Count 3.57 X10^6/uL (4.0-5.2); Red Cell Distribution Width 13.2 % (11.6-14.8); White Blood Cell Count 12.4 X10^3/uL (4.5-11.0)
[2022-06-15 05:23] LABS: BUN Creatinine Ratio 13.8 (6-22); Blood Urea Nitrogen 15 mg/dL (7-17); Calcium 8.5 mg/dL (8.4-10.2); Carbon Dioxide 28 mmol/L (22-32); Chloride 99 mmol/L (98-107); Estimated Glomerular Filt Rate 53 mL/min (>60); Glucose 179 mg/dL (80-110); HEMOLYSIS < 15 (0-50); Potassium 3.7 mmol/L (3.4-5.1); Sodium 136 mmol/L (137-145)
[2022-06-15] MEDS: DEXTROSE 5%-0.9% NS 1,000 ML 84 ML IV ×2 (08:05→19:19)
[2022-06-15] MEDS: INSULIN LISPRO 100 UNIT/ML 3ML VIAL SUBCUT ×2 (08:31→16:50)
[2022-06-15] MEDS: ESCITALOPRAM 10 MG TABLET PO (09:01)
--- NOTE | 2022-06-15 09:18 | P.PN_ITS ---
Subjective Subjective Date Patient Seen: 06/15/22 Time Patient Seen: 09:18 Interval history: Patient confused this morning, complains of soreness in her chest and has pain in her throat. She is also quite confused, told nursing staff she was in a banana this morning, told me primary care office, but frequently states I'm not sure. Denies nausea, vomiting, or shortness of breath. Exam Vital Signs (past 8 hours): - 06/15/22 06:00 06/15/22 08:04 Temperature 97.8 F 100.5 F H Pulse Rate 82 79 Respiratory Rate 17 18 Blood Pressure 175/75 H 133/63 Pulse Oximetry 96 95 Oxygen Flow Rate 2 2 Oxygen Delivery Method Room Air Oxygen Flow Rate 2 Narrative Exam Narrative: GEN: in some distress secondary to pain HEENT: moist mucous membranes, PERRL NECK: trachea midline, no JVD CV: regular rate and rhythm, no murmurs PULM: clear bilaterally, no wheezes, rhonchi, rales ABD: soft, nontender, nondistended, no organomegaly EXT: warm and well perfused with no edema Objective Labs Result Diagrams: 06/15/22 04:38 06/15/22 04:38 Labs: Laboratory Results - last 24 hr 06/15/22 06/15/22 04:38 04:38 WBC 12.4 H RBC 3.57 L Hgb 10.2 L Hct 30.3 L MCV 84.9 MCH 28.4 MCHC 33.5 RDW 13.2 Plt Count 325 Neut % (Auto) 84.6 H Lymph % (Auto) 5.5 L [place] % (Auto) 8.2 Eos % (Auto) 1.1 L Baso % (Auto) 0.6 Neut # (Auto) 25406 H Lymph # (Auto) 700 L [place] # (Auto) 1000 H Eos # (Auto) 100 Baso # (Auto) 100 Sodium 136 L Potassium 3.7 Chloride 99 Carbon Dioxide 28 BUN 15 Creatinine 1.09 H Estimated GFR 53 L BUN/Creatinine Ratio 13.8 Glucose 179 H D Calcium 8.5 PFSH Medical History Acute upper GI bleed Anxiety Breast cancer (1992) Breast cancer, left breast (2016) Cataract (2010) Chicken pox Diabetes mellitus (~1987) Fractures GERD (gastroesophageal reflux disease) Hayfever (~1960) History of recurrent ear infection Hyperlipidemia (~1997) Hyperparathyroidism (2013) Hypertension (~1997) Impingement syndrome of right shoulder Lumbar spine pain Measles Obesity (BMI 30-39.9) ROSCOE (obstructive sleep apnea) Osteopenia Osteoporosis Pneumonia Shoulder pain (2014) Sternal fracture (2015) Unilateral primary osteoarthritis, left knee Urinary incontinence (2012) Vertigo (2011) Surgical History Anesthesia complication H/O lumpectomy H/O mastectomy History of fusion of cervical spine (2011) History of knee replacement (2006) History of lumbar spinal fusion (2009) History of lumbar spinal fusion Hx of bilateral cataract extraction Status post left knee replacement Family History Father Hypertension High cholesterol Pneumonia Mother Hypertension Mental health problem Stroke History of hip surgery Grandfather Heart disease Hypertension High cholesterol Grandmother Hypertension High cholesterol Social History marital status: household members: spouse occupational status: other Smoking Status: Never smoker alcohol intake: current substance use type: does not use Assessment & Plan Assessment & Plan narrative: 1. Sepsis secondary to Breast cellulitis and abscess, with concern for gas producing organism or necrotizing infection, with ROGER and metabolic encephalopathy. -now s/p I&D with general surgery on 06/14/22, reviewed patient's prior documentation and operative reports. -for now continue broad spectrum antibiotics with vanc/meropenem, add clinda for possible toxin effects, cultures positive for MRSA. -mild rise in WBC count, will continue to trend, likely in setting of debridement yesterday 2. Type 2 Diabetes on insulin -continue to hold oral medications -sliding scale insulin ordered, glucose <180 thus far, with diet today may need long acting at bedtime. 3. 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 4. Hypertension -hold anti-hypertensives for now, blood pressures normal today. 5. Metabolic encephalopathy, acute - suspect confusion in the setting of sepsis, operative interventions. No focal findings on exam concerning for stroke. Continue to monitor with improving renal function and appropriate antbiotic therapy. CODE: DNR Proxy: Stu Romanski, spouse I have utilized all available resources to reconcile the patient's home medications Time Spent With Patient Critical Care time: I spent a total of [] minutes of critical care time on this patient's care today; this time is exclusive of procedural time.
[2022-06-15] MEDS: OXYCODONE IR 5 MG TABLET 10 MG PO (09:37)
--- NOTE | 2022-06-15 13:15 | CM.DPC ---
DCP Cont: Discussed patient during team rounds. Hospitalist indicated, patient should be able to go home on oral antibiotics, as long as it is sensitive to oral antibiotics. Hospitalist will keep DC Planning updated. It is noted by last DC Office Equipment Mechanic, that patient has good home support. P: DCP to continue to follow for any needs. Last DC Office Equipment Mechanic note indicated that patient not interested in home health services. Elke Borrego RN/Fibreglass Laminator
--- NOTE | 2022-06-15 15:07 | PM.PNPO.1 ---
Subjective Subjective Date Patient Seen: 06/15/22 Time Patient Seen: 15:07 Interval history: some confusion reported by family and nurse. wound with minimal drainage and receding erythema Exam Vital Signs (past 8 hours): - 06/15/22 08:04 06/15/22 09:37 06/15/22 09:21 Temperature 100.5 F H 100.4 F H Pulse Rate 79 Respiratory Rate 18 Blood Pressure 133/63 Pulse Oximetry 95 Oxygen Delivery Method Nasal Cannula Oxygen Flow Rate 2 06/15/22 08:00 06/15/22 08:03 06/15/22 08:03 Temperature Pulse Rate 81 82 Respiratory Rate Blood Pressure 133/63 Pulse Oximetry 95 95 Oxygen Delivery Method Oxygen Flow Rate 06/15/22 10:00 06/15/22 11:13 06/15/22 11:13 Temperature Pulse Rate 75 77 Respiratory Rate Blood Pressure 135/59 L Pulse Oximetry 95 97 Oxygen Delivery Method Oxygen Flow Rate 06/15/22 11:22 06/15/22 12:00 Temperature 98.7 F 98.7 F Pulse Rate 71 Respiratory Rate 18 18 Blood Pressure 135/52 L Pulse Oximetry 95 Oxygen Delivery Method Oxygen Flow Rate 2 Oxygen Delivery Method Nasal Cannula Oxygen Flow Rate 2 Objective Labs Result Diagrams: 06/15/22 04:38 06/15/22 04:38 Labs: Laboratory Results - last 24 hr 06/15/22 06/15/22 04:38 04:38 WBC 12.4 H RBC 3.57 L Hgb 10.2 L Hct 30.3 L MCV 84.9 MCH 28.4 MCHC 33.5 RDW 13.2 Plt Count 325 Neut % (Auto) 84.6 H Lymph % (Auto) 5.5 L [place] % (Auto) 8.2 Eos % (Auto) 1.1 L Baso % (Auto) 0.6 Neut # (Auto) 95860 H Lymph # (Auto) 700 L [place] # (Auto) 1000 H Eos # (Auto) 100 Baso # (Auto) 100 Sodium 136 L Potassium 3.7 Chloride 99 Carbon Dioxide 28 BUN 15 Creatinine 1.09 H Estimated GFR 53 L BUN/Creatinine Ratio 13.8 Glucose 179 H D Calcium 8.5 PFSH Medical History Acute upper GI bleed Anxiety Breast cancer (1992) Breast cancer, left breast (2016) Cataract (2010) Chicken pox Diabetes mellitus (~1987) Fractures GERD (gastroesophageal reflux disease) Hayfever (~1959) History of recurrent ear infection Hyperlipidemia (~1997) Hyperparathyroidism (2013) Hypertension (~1997) Impingement syndrome of right shoulder Lumbar spine pain Measles Obesity (BMI 30-39.9) ROSCOE (obstructive sleep apnea) Osteopenia Osteoporosis Pneumonia Shoulder pain (2014) Sternal fracture (2014) Unilateral primary osteoarthritis, left knee Urinary incontinence (2012) Vertigo (2011) Surgical History Anesthesia complication H/O lumpectomy H/O mastectomy History of fusion of cervical spine (2011) History of knee replacement (2006) History of lumbar spinal fusion (2009) History of lumbar spinal fusion Hx of bilateral cataract extraction Status post left knee replacement Family History Father Hypertension High cholesterol Pneumonia Mother Hypertension Mental health problem Stroke History of hip surgery Grandfather Heart disease Hypertension High cholesterol Grandmother Hypertension High cholesterol Social History (Reviewed 06/13/22 @ 17:58 by Michelle Berman [facility]) marital status: household members: spouse occupational status: other Smoking Status: Never smoker alcohol intake: current substance use type: does not use Assessment & Plan Post-op Postoperative Procedures: Procedures Operation Date: 06/14/22 14:45 Actual Procedure Side Surgeon p I&D breast abscess Left Eliza Choi MD Postoperative day: 2 Postoperative status: doing well Postoperative status narrative: resolution of local erythema will be slow to resolved due to severe radiation injury to skin and lymphatics. no evidence of undrained infection Postoperative plan narrative: continue dry dressing as needed. Antibiotics per medical team.
[2022-06-15] MEDS: ACETAMINOPHEN 325 MG TABLET 650 MG PO (16:40)
[2022-06-15] MEDS: diphenhydrAMINE 25 MG TABLET 50 MG PO (16:41)
[2022-06-15] MEDS: VANCOMYCIN 1,250 MG/250 ML PIGGYBACK 250 MG IV (19:17)
[2022-06-15] MEDS: INSULIN GLARGINE 100 UNIT/ML 3ML PEN 10 UNIT SUBCUT (20:51)
[2022-06-15] MEDS: HYDROMORPHONE 0.5 MG INJ 1 MG IV (21:05)
[2022-06-16] VITALS (11 sets, daily range): BP systolic 127–178; BP diastolic 67–78; PULSE 67–108; RESP 17–22; TEMP 36.3–37.7; O2SAT 88–95
[2022-06-16] MEDS: MEROPENEM 500 MG in SODIUM CHLORIDE 0.9% 100 ML 200 MG IV ×2 (01:39→09:26)
[2022-06-16] MEDS: CLINDAMYCIN 600 MG/50 ML PIGGYBACK 50 MG IV ×2 (02:23→10:05)
[2022-06-16] MEDS: diphenhydrAMINE 25 MG TABLET 50 MG PO (03:53)
[2022-06-16] MEDS: ACETAMINOPHEN 325 MG TABLET 650 MG PO ×2 (03:54→21:39)
[2022-06-16 04:43] LABS: BUN Creatinine Ratio 15.2 (6-22); Blood Urea Nitrogen 16 mg/dL (7-17); Calcium 8.4 mg/dL (8.4-10.2); Carbon Dioxide 29 mmol/L (22-32); Chloride 98 mmol/L (98-107); Estimated Glomerular Filt Rate 55 mL/min (>60); Glucose 165 mg/dL (80-110); Sodium 135 mmol/L (137-145)
[2022-06-16 04:48] LABS: HEMOLYSIS 64 (0-50)
[2022-06-16 04:49] LABS: Potassium 3.9 mmol/L (3.4-5.1)
[2022-06-16 07:02] LABS: Add Manual Diff / Slide Review NO; Basophils Absolute Auto 100 /uL (0-100); Basophils Percent Auto 0.7 % (0-2); Eosinophils Absolute Auto 100 /uL (0-450); Hematocrit 30.4 % (36-46); Hemoglobin 10.3 g/dL (12.0-16.0); Lymphocytes Absolute Auto 800 /uL (1100-4500); Lymphocytes Percent Auto 7.3 % (25-40); Mean Corpuscular HGB Conc 33.8 % (30-36); Mean Corpuscular Hemoglobin 28.3 PG (26-34); Mean Corpuscular Volume 83.9 fL (80-100); Monocytes Absolute Auto 900 /uL (0-900); Monocytes Percent Auto 8.3 % (3-14); Neutrophils Absolute Auto 9100 /uL (1500-7000); Neutrophils Percent Auto 82.7 % (50-75); Platelet Count 325 X10^3/uL (150-400); Red Blood Cell Count 3.62 X10^6/uL (4.0-5.2); Red Cell Distribution Width 13.3 % (11.6-14.8)
--- NOTE | 2022-06-16 07:04 | PC.NURSE ---
Baseball Glove Stuffer Note-Patient has been drowsy and forgetful, not very talkative, but is aware of place and situation. Impulsive, does not use call light, bed alarm on. Has apnea, desats to 80%, not always cooperative with O2, had NC and Oximask on intermittently. Tylenol and Dilaudid given for pain, PO Benadryl for puritis. Naty to Lt breast D/I.
[2022-06-16] MEDS: INSULIN LISPRO 100 UNIT/ML 3ML VIAL SUBCUT (08:31)
[2022-06-16] MEDS: ESCITALOPRAM 10 MG TABLET PO (08:44)
[2022-06-16] MEDS: ENOXAPARIN 40 MG/0.4 ML SYRINGE SUBCUT (08:44)
--- NOTE | 2022-06-16 13:15 | PM.PN.1 ---
Subjective Subjective Date Patient Seen: 06/16/22 Interval history: Patient with improved confusion yesterday evening, given pain meds overnight and again lethargic and confused this AM. Opiate dosing was markedly reduced today. Exam Vital Signs (past 8 hours): - 06/16/22 06:00 06/16/22 08:00 06/16/22 08:00 Temperature 98 F Pulse Rate 87 Respiratory Rate 18 Blood Pressure 154/67 H Pulse Oximetry 89 L 95 Oxygen Delivery Method Room Air Oxygen Flow Rate 0 06/16/22 06:00 06/16/22 08:00 06/16/22 08:11 Temperature Pulse Rate 82 90 80 Respiratory Rate Blood Pressure Pulse Oximetry 89 L 94 95 Oxygen Delivery Method Oxygen Flow Rate 06/16/22 08:11 06/16/22 10:53 Temperature Pulse Rate Respiratory Rate Blood Pressure 154/67 H Pulse Oximetry 93 Oxygen Delivery Method Oxygen Flow Rate Oxygen Delivery Method Room Air Oxygen Flow Rate 0 Narrative Exam Narrative: GEN: awake, nodding only, doesn't want to speak but nods appropriately. HEENT: moist mucous membranes, PERRL NECK: trachea midline, no JVD CV: regular rate and rhythm, no murmurs PULM: clear bilaterally, no wheezes, rhonchi, rales ABD: soft, nontender, nondistended, no organomegaly EXT: warm and well perfused with no edema Objective Labs Result Diagrams: 06/16/22 06:50 06/16/22 03:56 Labs: Laboratory Results - last 24 hr 06/16/22 06/16/22 03:56 06:50 WBC 11.0 RBC 3.62 L Hgb 10.3 L Hct 30.4 L MCV 83.9 MCH 28.3 MCHC 33.8 RDW 13.3 Plt Count 325 Neut % (Auto) 82.7 H Lymph % (Auto) 7.3 L [place] % (Auto) 8.3 Eos % (Auto) 1.0 L Baso % (Auto) 0.7 Neut # (Auto) 9100 H Lymph # (Auto) 800 L [place] # (Auto) 900 Eos # (Auto) 100 Baso # (Auto) 100 Sodium 135 L Potassium 3.9 Chloride 98 Carbon Dioxide 29 BUN 16 Creatinine 1.05 H Estimated GFR 55 L BUN/Creatinine Ratio 15.2 Glucose 165 H Calcium 8.4 PFSH Medical History Acute upper GI bleed Anxiety Breast cancer (1992) Breast cancer, left breast (2017) Cataract (2010) Chicken pox Diabetes mellitus (~1987) Fractures GERD (gastroesophageal reflux disease) Hayfever (~1959) History of recurrent ear infection Hyperlipidemia (~1997) Hyperparathyroidism (2013) Hypertension (~1997) Impingement syndrome of right shoulder Lumbar spine pain Measles Obesity (BMI 30-39.9) ROSCOE (obstructive sleep apnea) Osteopenia Osteoporosis Pneumonia Shoulder pain (2014) Sternal fracture (2014) Unilateral primary osteoarthritis, left knee Urinary incontinence (2012) Vertigo (2011) Surgical History Anesthesia complication H/O lumpectomy H/O mastectomy History of fusion of cervical spine (2011) History of knee replacement (2006) History of lumbar spinal fusion (2009) History of lumbar spinal fusion Hx of bilateral cataract extraction Status post left knee replacement Family History Father Hypertension High cholesterol Pneumonia Mother Hypertension Mental health problem Stroke History of hip surgery Grandfather Heart disease Hypertension High cholesterol Grandmother Hypertension High cholesterol Social History marital status: household members: spouse occupational status: other Smoking Status: Never smoker alcohol intake: current substance use type: does not use Assessment & Plan Assessment & Plan narrative: 1. Sepsis secondary to Breast cellulitis and abscess, present on admission, with concern for gas producing organism or necrotizing infection, with ROGER and metabolic encephalopathy. -now s/p I&D with general surgery on 06/14/22, reviewed patient's prior documentation and operative reports. Sepsis was present on admission given infection with development of ROGER and encephalopathy. -for now continue broad spectrum antibiotics with vanc/meropenem, add clinda for possible toxin effects, cultures positive for MRSA. -mild rise in WBC count, will continue to trend, likely in setting of debridement now improving. -narrow to doxycycline based on cultures, MRSA resistant to clinda. - continue to follow WBC count. 2. Type 2 Diabetes on insulin -continue to hold oral medications -sliding scale insulin ordered, glucose <180 thus far, with diet today may need long acting at bedtime. 3. 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 4. Hypertension -increasing BP today, will resume home coreg today, restart slowly. Home meds are coreg, amlodipine, and losartan. 5. Metabolic encephalopathy, acute - suspect confusion in the setting of sepsis, operative interventions, and opiates. No focal findings on exam concerning for stroke. Continue to monitor with improving renal function and appropriate antbiotic therapy. CODE: DNR Proxy: Stu Barth, spouse I have utilized all available resources to reconcile the patient's home medications Time Spent With Patient Critical Care time: I spent a total of [] minutes of critical care time on this patient's care today; this time is exclusive of procedural time.
--- NOTE | 2022-06-16 15:50 | PC.NURSE ---
Received pt from ICU around 1500 Pt alert/oriented, some word searching noted. Dsg to the left chest CDI Hl right hand intact/patent. Pt requests door open when family not present i get scared. Call light w/in reach, bed alarm on for pt safety. Continue w/plan of care.
--- NOTE | 2022-06-16 16:23 | PC.NURSE ---
1400 L breast dressing removed. Small amount of serosangenous drainage noted, DSD replaced.
[2022-06-16] MEDS: ONDANSETRON 4 MG/2 ML INJ IV (20:47)
[2022-06-16] MEDS: ATORVASTATIN 20 MG TABLET 10 MG PO (21:26)
[2022-06-16] MEDS: FAMOTIDINE 20 MG TABLET PO (21:26)
[2022-06-16] MEDS: DOXYCYCLINE HYCLATE 100 MG TABLET PO (21:26)
[2022-06-16] MEDS: carvediloL 12.5 MG TABLET 25 MG PO (21:27)
[2022-06-16] MEDS: INSULIN GLARGINE 100 UNIT/ML 3ML PEN 10 UNIT SUBCUT (21:27)
[2022-06-16] MEDS: ZOLPIDEM 5 MG TABLET PO (21:39)
[2022-06-17] VITALS: BP 123/75; PULSE 90; RESP 17; TEMP 36.6; O2SAT 96
[2022-06-17] MEDS: SCOPOLAMINE 1 PATCH TOP (06:25)
[2022-06-17 06:29] VITALS: BP 136/67; PULSE 68; RESP 17; TEMP 36.6; O2SAT 93
[2022-06-17] MEDS: DOXYCYCLINE HYCLATE 100 MG TABLET PO ×2 (08:02→20:23)
[2022-06-17] MEDS: ENOXAPARIN 40 MG/0.4 ML SYRINGE SUBCUT (08:02)
[2022-06-17] MEDS: ESCITALOPRAM 10 MG TABLET PO (08:02)
[2022-06-17] MEDS: carvediloL 12.5 MG TABLET 25 MG PO ×2 (08:02→20:24)
[2022-06-17] MEDS: INSULIN LISPRO 100 UNIT/ML 3ML VIAL SUBCUT ×3 (08:09→16:56)
[2022-06-17 08:55] VITALS: BP 146/80; PULSE 79; RESP 18; TEMP 36.4; O2SAT 94
--- NOTE | 2022-06-17 09:38 | CM.DPC ---
DCP Cont: Discussed patient yesterday in rounds. She was noting some confusion, possibly secondary to pain medication. Patient had recent I&D here at the hospital secondary to left breast cellulitis. Will confirm at team rounds this am that patient can go home on oral antibiotics, and if home health may be appropriate. P: DCP to continue to follow closely for needs. Patient lives with spouse in [place]. Elke Borrego RN/Armature Repairer
--- NOTE | 2022-06-17 12:24 | PT.IIE ---
Current Diagnoses Mastitis without abscess (06/13/22) Surgery Performed Operation Date: 06/14/22 14:45 Actual Procedures p I&D breast abscess(Left) - Eliza Choi MD Surgical History (Last Reviewed 06/14/22 @ 14:10 by Eliza Choi MD) Anesthesia complication H/O lumpectomy H/O mastectomy History of fusion of cervical spine (2011) History of knee replacement (2006) History of lumbar spinal fusion (2009) History of lumbar spinal fusion Hx of bilateral cataract extraction Status post left knee replacement Medical History (Last Reviewed 06/14/22 @ 14:10 by Eliza Choi MD) Acute upper GI bleed Anxiety Breast cancer (1992) Breast cancer, left breast (2016) Cataract (2010) Chicken pox Diabetes mellitus (~1987) Fractures GERD (gastroesophageal reflux disease) Hayfever (~1959) History of recurrent ear infection Hyperlipidemia (~1997) Hyperparathyroidism (2013) Hypertension (~1997) Impingement syndrome of right shoulder Lumbar spine pain Measles Obesity (BMI 30-39.9) ROSCOE (obstructive sleep apnea) Osteopenia Osteoporosis Pneumonia Shoulder pain (2014) Sternal fracture (2014) Unilateral primary osteoarthritis, left knee Urinary incontinence (2012) Vertigo (2011) Physical Therapy Inpatient Evaluation/Re-Eval M1 PT/OT-IP Prior Functional Status Start: 06/17/22 11:49 Freq: NEEDED Status: Active Protocol: Document 06/17/22 12:24 AW (Rec: 06/17/22 13:14 AW [id number]) Medical Review Prior Functional Status Medical History Reviewed Yes Communication WNL. Pt is an effective verbal communicator. Mobility and Gait Independent without AD during the day. Pt does use a 4WW for nighttime bathroom trips. Activities of Daily Living and IADL's Independent with self-care. Pt cooks, manages her own meds, and drives. Prior Functional Level (Other details) History of left breast cancer s/p mastectomy and radiation in 2016. Pt was subsequently treated for LUE lymphedema and has a compression sleeve though she does not wear it regularly. PMH also includes L TKA in August 2021. Social History Household Members spouse Living Arrangements House Number of Floors (Floors) Two Floors Number of Stairs To Enter/Railing? Level entrance. Pt stays on the main level. Home Environment High Toilet,Walk in Shower, Built-In Shower Seat Home Equipment Front Wheel Walker,Four Wheel Walker,Hand Held Shower,Grab Bars Near Toilet,Grab Bars In Shower Additional Social History Comment Pt lives in [place] with her spouse, Stu. M2 PT-IP Current Condition Start: 06/17/22 11:49 Freq: NEEDED Status: Active Protocol: Document 06/17/22 12:24 AW (Rec: 06/17/22 13:14 AW [id number]) Physical Therapy Current Condition Current Condition Evaluation Date 06/17/22 Treatment Diagnosis infected L mastectomy scar s/p I&D; impaired balance and gait Onset Date 06/11/22 M3 PT-IP Subjective Start: 06/17/22 11:49 Freq: NEEDED Status: Active Protocol: Document 06/17/22 12:24 AW (Rec: 06/17/22 13:14 AW [id number]) Subjective Physical Therapy Visit Type Type Initial Evaluation Visit Start Time 12:04 Visit Stop Time 12:24 Total Visit Minutes 20 Notes Pt's spouse was present throughout assessment Physical Therapy Visit Comments Patient Comments Pt is willing to participate with PT Patient Goals Improve balance. Return to regular activity Therapy Pain Assessment Pain When Pain Assessed During Mobility Pain Present Pain Present Pain Reported Location Left Chest Scale Used not quantified M4 PT-IP Mobility and Gait Start: 06/17/22 11:49 Freq: NEEDED Status: Active Protocol: Document 06/17/22 12:24 AW (Rec: 06/17/22 13:14 AW [id number]) PT-Bed Mobility Assessment Supine to Sit Supine to Sit Standby Assistance Scooting Scooting to Edge of Bed Standby Assistance PT-Transfer Assessment Sit to and From Stand Sit to and from Stand Contact Guard Assistance,Use of Upper Extremities Equipment Transfer Assistive Device Gait Belt,Front Wheeled Walker Orthotic/Prosthetic Devices or Brace: No Transfers Transfer Destination Bed Transfer Technique ambulated with FWW Transfer Ability Level of Assist Contact Guard Assistance Comments Mobility Comments Pt was lying in bed as PT arrived. BP 121/65 HR 75. She sat up EOB SBA and stated she has been using FWW in the hospital due to weakness and poor balance. She stood CGA and stepped away from the bed without AD, losing her balance to the right and needing min A to recover. She used FWW to ambulate around the room with supervision/SBA. Assessed ambulation without AD and gait was more unsteady, requiring CGA. Pt sat EOB and reported feeling nauseous. Informed RN. Pt was left sitting EOB with call light in reach. Gait Assessment Gait Gait Assistance Required: Standby Assistance,Contact Guard Assist Distance (Feet) 40 Assistive Devices Assistive Device None,Gait Belt,Front Wheeled Walker Orthotic/Prosthetic Devices or Brace: No Gait Deviations General Gait Pattern Antalgic,Decreased Stride Length,Decreased Feet Clearance Factors Limiting Gait Function Factors Limiting Gait Function Decreased Strength,Limited Range of Motion,Pain,Poor Balance,Poor Safety Awareness Comments Gait Comments Pt walked 40' with FWW SBA and 40' without AD CGA/min A. See mobility comments for details . Stair Climbing Assessment Comments Stair Climbing Comments Not assessed. Pt does not need to climb stairs at home. PT-Balance Assessment Sitting Balance and Reactions Static Sitting Balance Ability Good Dynamic Sitting Balance Ability Good Standing Balance and Reactions Static Standing Balance Ability Fair Dynamic Standing Balance Ability Fair Device Used FWW Balance Tests Romberg able EO and with sternal nudge ; begins to fall EC Tandem Standing able to stand semi-tandem but only for 5 sec M5 PT-IP Objective Assessments Start: 06/17/22 11:49 Freq: NEEDED Status: Active Protocol: Document 06/17/22 12:24 AW (Rec: 06/17/22 13:14 AW [id number]) Orientation Orientation/Cognition Level of Alertness Confusional State Orientation Name,Day of Week,Place, Situation Safety Awareness Decreased Safety Awareness Comments Pt states the year is 1922. She is familiar to this PT from the outpatient setting and does appear to require some extra processing time this date. Gross Range of Motion Lower Extremity ROM Assessment Within Functional Limits Strength Lower Extremity Strength Hip B 4+/5 Knee R 4+/5; L 4/5 Ankle B 4+/5 Sensation Assessment Sensation Gross Sensation WNL Muscle Tone Muscle Tone WNL Yes Other Assessments Other Other Assessments LUE appears swollen compared with RUE. M6 PT-IP Treatment Start: 06/17/22 11:49 Freq: NEEDED Status: Active Protocol: Document 06/17/22 12:24 AW (Rec: 06/17/22 13:14 AW [id number]) Physical Therapy Treatment Other Treatments Other Treatment Performed Educated pt on managing lymphedema long-term and encouraged her to resume wearing her UE compression garment for swelling reduction and to maintain ROM. Also educated on recommendation for FWW or 4WW at home. Pt agreed . M7 PT-IP Assessment and Plan Start: 06/17/22 11:49 Freq: NEEDED Status: Active Protocol: Document 06/17/22 12:24 AW (Rec: 06/17/22 13:14 AW [id number]) PT Summary Assessment and Plan Potential Rehabilitation Potential Good Status of Condition at Evaluation Evolving Summary Impairments Pain,Strength,Balance, Cognition,Transfers,Gait Assessment Summary Lois is a 76 yo woman admitted with infected left mastectomy site and increased confusion. Today, she is POD3 s/p I&D. She is known to this PT from rehab following her L TKA within the past year. PLOF : Independent mobility without AD (except for use of 4WW during nighttime trips to the bathroom). CLOF: Pt demonstrates decreased static and dynamic balance and has confusion affecting her safety awareness. She benefits from use of FWW. Pt agrees to use FWW vs 4WW at home. She may benefit from home health PT to improve her strength and mobility independence. Goals Bed Mobility Goal Independent Transfer Goal Independent Gait Goal Independent,Four Wheel Walker Gait Distance 200 Other Goals - pt will complete 5 Time Sit to Stand from standard height chair in 13 seconds or less ( last known measure from TKA rehab in March 2022) Days to Meet Goals 5 Frequency of Treatment Frequency Of Treatment Once a Day Treatment Plan Physical Therapy Treatment Plan Bed Mobility Training,Transfer Training,Gait Training, Therapeutic Exercise,Balance Retraining,Post Op Education, Discharge Planning,Hot or Cold Pack,Neuromuscular Re-ed Other Recommendations and Next Treatment 5xSTS; assess gait with 4WW Focus Precautions Other Precautions falls risk Recommendations To Nursing Amount of Assist Needed Standby Assistance,1 Person Assist Discharge Recommendations PT Discharge Recommendations Home with Assistance,Home Health Transportation Needs at Discharge Private Vehicle
[2022-06-17] MEDS: ONDANSETRON 4 MG/2 ML INJ IV (12:50)
--- NOTE | 2022-06-17 14:01 | P.PN_ITS ---
Subjective Subjective Date Patient Seen: 06/17/22 Interval history: With reduced pain medications patient much less confused today. Minimal breast pain today and asking appropriate questions, she does not recall the past few days much at all. She is weak, want to work with PT. Exam Vital Signs (past 8 hours): - 06/17/22 06:29 06/17/22 08:55 Temperature 97.8 F 97.5 F L Pulse Rate 68 79 Respiratory Rate 17 18 Blood Pressure 136/67 146/80 H Pulse Oximetry 93 94 Oxygen Flow Rate 0 0 Oxygen Delivery Method Room Air Oxygen Flow Rate 0 Narrative Exam Narrative: GEN: awake, nodding only, doesn't want to speak but nods appropriately. HEENT: moist mucous membranes, PERRL NECK: trachea midline, no JVD CV: regular rate and rhythm, no murmurs PULM: clear bilaterally, no wheezes, rhonchi, rales ABD: soft, nontender, nondistended, no organomegaly EXT: warm and well perfused with no edema Objective Labs Result Diagrams: 06/16/22 06:50 06/16/22 03:56 [facility] Medical History Acute upper GI bleed Anxiety Breast cancer (1992) Breast cancer, left breast (2016) Cataract (2010) Chicken pox Diabetes mellitus (~1987) Fractures GERD (gastroesophageal reflux disease) Hayfever (~1959) History of recurrent ear infection Hyperlipidemia (~1997) Hyperparathyroidism (2013) Hypertension (~1997) Impingement syndrome of right shoulder Lumbar spine pain Measles Obesity (BMI 30-39.9) ROSCOE (obstructive sleep apnea) Osteopenia Osteoporosis Pneumonia Shoulder pain (2014) Sternal fracture (2014) Unilateral primary osteoarthritis, left knee Urinary incontinence (2012) Vertigo (2011) Surgical History Anesthesia complication H/O lumpectomy H/O mastectomy History of fusion of cervical spine (2011) History of knee replacement (2006) History of lumbar spinal fusion (2009) History of lumbar spinal fusion Hx of bilateral cataract extraction Status post left knee replacement Family History Father Hypertension High cholesterol Pneumonia Mother Hypertension Mental health problem Stroke History of hip surgery Grandfather Heart disease Hypertension High cholesterol Grandmother Hypertension High cholesterol Social History marital status: household members: spouse occupational status: other Smoking Status: Never smoker alcohol intake: current substance use type: does not use Assessment & Plan Assessment & Plan narrative: 1. Sepsis secondary to Breast cellulitis and abscess, present on admission, with concern for gas producing organism or necrotizing infection, with ROGER and metabolic encephalopathy. -now s/p I&D with general surgery on 06/14/22, reviewed patient's prior documentation and operative reports. Sepsis was present on admission given infection with development of ROGER and encephalopathy. -for now continue broad spectrum antibiotics with vanc/meropenem, add clinda for possible toxin effects, cultures positive for MRSA. -mild rise in WBC count, will continue to trend, likely in setting of debridement now improving. -narrow to doxycycline based on cultures, MRSA resistant to clinda. - continue to follow WBC count. 2. Type 2 Diabetes on insulin -continue to hold oral medications -sliding scale insulin ordered, glucose <180 thus far, with diet today may need long acting at bedtime. 3. 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 4. Hypertension -BP still elevated today, resumed home coreg, will resume losartan tomorrow. Home meds are coreg, amlodipine, and losartan. 5. Metabolic encephalopathy, acute, improving - suspect confusion in the setting of sepsis, operative interventions, and opiates. No focal findings on exam concerning for stroke. Continue to monitor with improving renal function and appropriate antbiotic therapy. - PT evaluation ordered CODE: DNR Proxy: Stu Barth, spouse Dispo: Anticipate discharge home possibly with home health depending on PT evaluations, possibly as soon as tomorrow. I have utilized all available resources to reconcile the patient's home medications Time Spent With Patient Critical Care time: I spent a total of [] minutes of critical care time on this patient's care today; this time is exclusive of procedural time.
[2022-06-17 15:07] VITALS: BP 124/62; PULSE 79; RESP 16; TEMP 36.4; O2SAT 94
[2022-06-17] MEDS: ACETAMINOPHEN 325 MG TABLET 650 MG PO (16:44)
--- NOTE | 2022-06-17 17:35 | PC.NURSE ---
pt assist to br with walker, left breast drsg changed ss drainage noted with small amt of pus at incision site otherwise very red and excoriated looking and sore pt medicated with tylenol and drsg with abd and silk tape placed.
[2022-06-17 19:50] VITALS: BP 125/63; PULSE 77; RESP 21; TEMP 36.6; O2SAT 95
[2022-06-17] MEDS: FAMOTIDINE 20 MG TABLET PO (20:23)
[2022-06-17] MEDS: ATORVASTATIN 20 MG TABLET 10 MG PO (20:23)
[2022-06-17 20:24] VITALS: BP 125/67; PULSE 77
[2022-06-17] MEDS: INSULIN GLARGINE 100 UNIT/ML 3ML PEN 10 UNIT SUBCUT (20:25)
[2022-06-17] MEDS: ZOLPIDEM 5 MG TABLET PO (20:25)
[2022-06-17] MEDS: SODIUM CHLORIDE 0.9% FLUSH 10 ML IV (20:36)
[2022-06-18 01:45] VITALS: BP 141/64; PULSE 79; RESP 18; TEMP 37; O2SAT 95
[2022-06-18] MEDS: diphenhydrAMINE 25 MG TABLET 50 MG PO (03:25)
[2022-06-18 06:20] LABS: Add Manual Diff / Slide Review NO; Basophils Absolute Auto 100 /uL (0-100); Basophils Percent Auto 0.7 % (0-2); Eosinophils Absolute Auto 300 /uL (0-450); Eosinophils Percent Auto 3.4 % (2-4); Hematocrit 30.3 % (36-46); Hemoglobin 10.4 g/dL (12.0-16.0); Lymphocytes Absolute Auto 1000 /uL (1100-4500); Lymphocytes Percent Auto 12.5 % (25-40); Mean Corpuscular HGB Conc 34.1 % (30-36); Mean Corpuscular Hemoglobin 28.4 PG (26-34); Mean Corpuscular Volume 83.1 fL (80-100); Monocytes Absolute Auto 900 /uL (0-900); Monocytes Percent Auto 10.4 % (3-14); Neutrophils Absolute Auto 6100 /uL (1500-7000); Platelet Count 406 X10^3/uL (150-400); Red Blood Cell Count 3.65 X10^6/uL (4.0-5.2); Red Cell Distribution Width 13.4 % (11.6-14.8); White Blood Cell Count 8.4 X10^3/uL (4.5-11.0)
[2022-06-18 06:23] LABS: BUN Creatinine Ratio 25.4 (6-22); Blood Urea Nitrogen 36 mg/dL (7-17); Calcium 8.9 mg/dL (8.4-10.2); Carbon Dioxide 32 mmol/L (22-32); Chloride 98 mmol/L (98-107); Estimated Glomerular Filt Rate 38 mL/min (>60); Glucose 155 mg/dL (80-110); HEMOLYSIS < 15 (0-50); Magnesium 1.6 mg/dL (1.6-2.3); Potassium 3.7 mmol/L (3.4-5.1); Sodium 137 mmol/L (137-145)
--- NOTE | 2022-06-18 08:10 | PT.IPTN ---
Current Diagnoses Mastitis without abscess (06/13/22) Surgery Performed Operation Date: 06/14/22 14:45 Actual Procedures p I&D breast abscess(Left) - Eliza Choi MD Physical Therapy Treatment Note M2 PT-IP Current Condition Start: 06/17/22 11:49 Freq: NEEDED Status: Discharge Protocol: Document 06/18/22 07:51 SP (Rec: 06/18/22 16:02 SP [id number]) Physical Therapy Current Condition Current Condition Evaluation Date 06/17/22 Treatment Diagnosis infected L mastectomy scar s/p I&D; impaired balance and gait Onset Date 06/11/22 M3 PT-IP Subjective Start: 06/17/22 11:49 Freq: NEEDED Status: Discharge Protocol: Document 06/18/22 07:51 SP (Rec: 06/18/22 16:02 SP [id number]) Subjective Physical Therapy Visit Type Type Treatment Note Visit Start Time 07:51 Visit Stop Time 08:10 Total Visit Minutes 19 Number of SKIP PIT WORKER Visits 1 Physical Therapy Visit Comments Patient Comments Pt was sleeping initially when arrived, is willing to participate with PT. Patient Goals Return home with to assist her if needed, improved balance return to activity with no or SPC. Therapy Pain Assessment Pain When Pain Assessed During Mobility Pain Present Pain Present Pain Reported Location Left Chest Scale Used low Description With Movement Pain Behaviors Facial Grimacing Pain Management Techniques Distraction,Modification of Treatment,Re-positioning M4 PT-IP Mobility and Gait Start: 06/17/22 11:49 Freq: NEEDED Status: Discharge Protocol: Document 06/18/22 07:51 SP (Rec: 06/18/22 16:02 SP [id number]) PT-Bed Mobility Assessment Supine to Sit Supine to Sit Standby Assistance Scooting Scooting to Edge of Bed Standby Assistance PT-Transfer Assessment Sit to and From Stand Sit to and from Stand Standby Assistance,Use of Upper Extremities Equipment Transfer Assistive Device Gait Belt,Front Wheeled Walker Orthotic/Prosthetic Devices or Brace: No Transfers Transfer Destination Chair,Toilet Transfer Technique ambulated with FWW Transfer Ability Level of Assist Standby Assistance,Use of Upper Extremities Comments Mobility Comments Pt was lying in bed sleeping when SKIP PIT WORKER arrived, easily to wake. BP 168/97 HR 70 SaO2 95% on RA. Complete HOB flat, demonstrated log roll to R use of UEs grasping sheets/WB on bed to help self transition to sit, scoot SBA. STS, cued push from bed with 1 UE opp on FWW for safety, gait w/ FWW to bathroom 12 ft, cued improved chest lift upright posture. Self brief mgt and Sit<>stand, good slow descend toilet use grab bar and FWW sBA. Pt completed in sitting gown and brief change, cleanse under arms with provided wet washcloth and self pericare S. Gait bathroom to door across room w/ FWW and back to chair 30 ft, preferred to use supervisor assembly department dispenser, states sink water is cold. She has good safety center front chair and use UE support sit. Completed 5x STS from chair UE support 16 sec, increase 3 sec from previous outpt baseline. Pt had call light and all needs in reach with breakfast before left. Provided warm blankets. Pt declined CP at this time, stated will ask nursing if needed. Gait Assessment Gait Gait Assistance Required: Standby Assistance Distance (Feet) 42 Assistive Devices Assistive Device Gait Belt,Front Wheeled Walker Orthotic/Prosthetic Devices or Brace: No Gait Deviations General Gait Pattern Decreased Stride Length,Flexed Trunk Factors Limiting Gait Function Factors Limiting Gait Function Decreased Activity Tolerance, Decreased Strength,Limited Range of Motion,Pain,Poor Balance,Poor Safety Awareness Comments Gait Comments Pt walked 42 ft total w/ FWW around room/bathroom SBA, receiprocal gait, cues for occasional proximity to FWW and upright chest lift posturing. Stair Climbing Assessment Comments Stair Climbing Comments Not assessed. Pt does not need to climb stairs at home. PT-Balance Assessment Sitting Balance and Reactions Static Sitting Balance Ability Normal Dynamic Sitting Balance Ability Good Standing Balance and Reactions Static Standing Balance Ability Fair Dynamic Standing Balance Ability Fair Device Used FWW Balance Tests Romberg able EO and with sternal nudge ; stable EC 3 sec bf LOB Tandem Standing able to stand semi-tandem but only for 3 sec Functional Assessments Functional Tests 5 Times Sit to Stand 16 sec w/ UE support M5 PT-IP Objective Assessments Start: 06/17/22 11:49 Freq: NEEDED Status: Discharge Protocol: Document 06/17/22 12:24 AW (Rec: 06/17/22 13:14 AW [id number]) Orientation Orientation/Cognition Level of Alertness Confusional State Orientation Name,Day of Week,Place, Situation Safety Awareness Decreased Safety Awareness Comments Pt states the year is 1922. She is familiar to this PT from the outpatient setting and does appear to require some extra processing time this date. Gross Range of Motion Lower Extremity ROM Assessment Within Functional Limits Strength Lower Extremity Strength Hip B 4+/5 Knee R 4+/5; L 4/5 Ankle B 4+/5 Sensation Assessment Sensation Gross Sensation WNL Muscle Tone Muscle Tone WNL Yes Other Assessments Other Other Assessments LUE appears swollen compared with RUE. M6 PT-IP Treatment Start: 06/17/22 11:49 Freq: NEEDED Status: Discharge Protocol: Document 06/17/22 12:24 AW (Rec: 06/17/22 13:14 AW [id number]) Physical Therapy Treatment Other Treatments Other Treatment Performed Educated pt on managing lymphedema long-term and encouraged her to resume wearing her UE compression garment for swelling reduction and to maintain ROM. Also educated on recommendation for FWW or 4WW at home. Pt agreed . M7 PT-IP Assessment and Plan Start: 06/17/22 11:49 Freq: NEEDED Status: Discharge Protocol: Document 06/18/22 07:51 SP (Rec: 06/18/22 16:02 SP [id number]) PT Summary Assessment and Plan Potential Rehabilitation Potential Good Status of Condition at Evaluation Evolving Summary Impairments Pain,Strength,Balance, Cognition,Transfers,Gait Progress Towards Goals Progressing Toward Goals,Slow Progress due to Activity Tolerance Assessment Summary Pt SBA for all mobility use of FWW for mobility at this time 42 ft total in room this tx. Pt able to complete 5x STS 16 sec UE support. SKIP PIT WORKER updated communication board, notified nursing and car mgt, is ok to return home with when medically cleared, recommending HHPT to progress strength/ functional mobility, balance back to PLOF use SPC/ no AD. Goals Bed Mobility Goal Independent Transfer Goal Independent Gait Goal Independent,Four Wheel Walker Gait Distance 200 Other Goals - pt will complete 5 Time Sit to Stand from standard height chair in 13 seconds or less ( last known measure from [facility] in March 2022) Days to Meet Goals 5 Frequency of Treatment Frequency Of Treatment Once a Day Treatment Plan Physical Therapy Treatment Plan Bed Mobility Training,Transfer Training,Gait Training, Therapeutic Exercise,Balance Retraining,Post Op Education, Discharge Planning,Hot or Cold Pack,Neuromuscular Re-ed Other Recommendations and Next Treatment standing balance activities, Focus gait LRAD further distance. Precautions Other Precautions falls risk Recommendations To Nursing Amount of Assist Needed Standby Assistance Discharge Recommendations PT Discharge Recommendations Home with Assistance,Home Health Transportation Needs at Discharge Private Vehicle
[2022-06-18] MEDS: INSULIN LISPRO 100 UNIT/ML 3ML VIAL SUBCUT ×2 (08:52→12:12)
[2022-06-18 08:53] VITALS: BP 130/50; PULSE 76; RESP 16; TEMP 36.3; O2SAT 95
[2022-06-18] MEDS: ENOXAPARIN 40 MG/0.4 ML SYRINGE SUBCUT (08:59)
[2022-06-18] MEDS: ESCITALOPRAM 10 MG TABLET PO (09:00)
[2022-06-18] MEDS: DOXYCYCLINE HYCLATE 100 MG TABLET PO (09:00)
[2022-06-18] MEDS: carvediloL 12.5 MG TABLET 25 MG PO (09:00)
[2022-06-18] MEDS: SODIUM CHLORIDE 0.9% FLUSH 10 ML IV (09:00)
--- NOTE | 2022-06-18 09:27 | CM.DPC ---
Addendum entered by Toña Paige R.N. 06/18/22 10:32: Dr. Choi will be doing rounds today to speak with pt prior to discharge. P: Home with , no home services needed. Original Note: DCP Continued: This DCP spoke with pt who is agreeable to perform own dressing changes at home as is dry protective dressing change. This DCP spoke with floor RN Maria, who will assure that pt is taught drsg change prior to discharge. P: Home with . No home services needed. Toña Paige RN Case Manager
--- NOTE | 2022-06-18 10:41 | PM.DS.1 ---
History of Present Illness History of Present Illness Date Patient Seen: 06/18/22 Chief complaint: surgery site infection/surgery date 87 Narrative: Ms. Barakat is a 76W with PMH left breast cancer x2, with first diagnosis in 1993 resulting in chemotherapy and radiation, she had recurrence approximately five years ago and then underwent mastectomy and another course of radiation, DM on insulin, HTN, CKD who presents to the hospital with left breast pain. She notes first having symptoms about six days ago with pain, redness noted. This progressed and she felt symptomatic fevers and began to notice purulent drainage. She also noted progressing fatigue, night sweats. She did see her PCP two days ago who prescribed her doxycycline which she has been taking since the night of 06/11. Because she was feeling worse she presented to the hospital. In the ED workup was done, vitals notable for afebrile, systolic blood pressure in the 130s, O2 sats in the 90s. Labs notable for WBC 11.4, hgb 11, plts 304. ESR 66. BUN 28, creatinine 1.49. a1c 7.2. CRP 6.1. Magnesium 1.5. Procal 0.07. Lactate 1.5. Chest xray negative for an acute process. CT chest was notable for gas containing focus within the left anterior chest wall, there was soft tissue swelling with the anterior chest wall inferior to gas containing focus. Antibiotics ordered. Surgery consult was obtained. She was admitted for further treatment. Discharge Providers Provider Date of admission: 06/13/22 17:15 Discharge Date: 06/18/22 Primary care physician: Sylvie Roy DO Consults: 06/13/22 17:51 Consult to General Surgery Routine Comment: Consulting Provider: Eliza Choi Reason for consultation: concern for gas producing org/abscess left chest Has provider been notified: Yes 06/17/22 10:27 Consult to Physical Therapy Evaluate & Treat Comment: Physician Instructions: Evaluate and Treat Discharge provider: Saúl Wilkes DO Summary Hospital Course Discharge Diagnosis: 1. Sepsis secondary to Breast cellulitis and abscess, present on admission, with concern for gas producing organism or necrotizing infection, with ROGER and metabolic encephalopathy. 2. Type 2 Diabetes on insulin 3. 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 Hypertension 5. Metabolic encephalopathy, acute, improving Hospital Course: 76 year old female admitted with sepsis secondary to breast cellulitis and abscess. She was initially started on broad antibiotics including vancomycin, meropenem, and clindamycin given possible gas on initial imaging. She underwent I&D with general surgery. Her encephalopathy was slow to recover, likely due to a combination of sensitivity to opiates and sepsis. Once her opiates were reduced she did begin to improve and was at her baseline mental status prior to discharge home. She also had ROGER related to her sepsis which improved with fluids. Cultures from her wound grew MRSA, sensitive to doxycycline. She will continue on doxycycline for 9 additional days after discharge to complete 2 week total course given extensive scarring noted by surgeon in the OR. She can resume her home antihypertensives at the time of discharge, and no medication changes are recommended regarding her diabetes medications at this time. Time Spent with Patient Time spent: Greater than 30 minutes Exam Vital Signs (past 8 hours): - 06/18/22 08:53 Temperature 97.4 F L Pulse Rate 76 Respiratory Rate 16 Blood Pressure 130/50 L Pulse Oximetry 95 Oxygen Flow Rate 0 Oxygen Delivery Method Room Air Oxygen Flow Rate 0 Narrative Exam Narrative: GEN: awake, alert, no acute distress today. HEENT: moist mucous membranes, PERRL NECK: trachea midline, no JVD CV: regular rate and rhythm, no murmurs PULM: clear bilaterally, no wheezes, rhonchi, rales ABD: soft, nontender, nondistended, no organomegaly EXT: warm and well perfused with no edema Objective Labs Result Diagrams: 06/18/22 05:52 06/18/22 05:52 Labs: Laboratory Results - last 24 hr 06/18/22 06/18/22 05:52 05:52 WBC 8.4 RBC 3.65 L Hgb 10.4 L Hct 30.3 L MCV 83.1 MCH 28.4 MCHC 34.1 RDW 13.4 Plt Count 406 H Neut % (Auto) 73.0 Lymph % (Auto) 12.5 L [place] % (Auto) 10.4 Eos % (Auto) 3.4 Baso % (Auto) 0.7 Neut # (Auto) 6100 Lymph # (Auto) 1000 L [place] # (Auto) 900 Eos # (Auto) 300 Baso # (Auto) 100 Sodium 137 Potassium 3.7 Chloride 98 Carbon Dioxide 32 BUN 36 H Creatinine 1.42 H Estimated GFR 38 L BUN/Creatinine Ratio 25.4 H Glucose 155 H Calcium 8.9 Magnesium 1.6 [facility] Medical History Acute upper GI bleed Anxiety Breast cancer (1992) Breast cancer, left breast (2016) Cataract (2010) Chicken pox Diabetes mellitus (~1987) Fractures GERD (gastroesophageal reflux disease) Hayfever (~1959) History of recurrent ear infection Hyperlipidemia (~1997) Hyperparathyroidism (2013) Hypertension (~1997) Impingement syndrome of right shoulder Lumbar spine pain Measles Obesity (BMI 30-39.9) ROSCOE (obstructive sleep apnea) Osteopenia Osteoporosis Pneumonia Shoulder pain (2014) Sternal fracture (2014) Unilateral primary osteoarthritis, left knee Urinary incontinence (2012) Vertigo (2011) Surgical History Anesthesia complication H/O lumpectomy H/O mastectomy History of fusion of cervical spine (2011) History of knee replacement (2006) History of lumbar spinal fusion (2009) History of lumbar spinal fusion Hx of bilateral cataract extraction Status post left knee replacement Family History Father Hypertension High cholesterol Pneumonia Mother Hypertension Mental health problem Stroke History of hip surgery Grandfather Heart disease Hypertension High cholesterol Grandmother Hypertension High cholesterol Social History marital status: household members: spouse occupational status: other Smoking Status: Never smoker alcohol intake: current substance use type: does not use Discharge Plan Discharge Plan Patient Disposition: Home Provider Discharge Comment: You were admitted to the hospital with cellulitis and abscess of your L breast. Improved with drainage and IV antibiotics. Stable now on oral antibiotics. Discharge orders & Medications Prescriptions: New doxycycline hyclate 100 mg Tablet 100 mg PO BID 9 Days Qty: 18 0RF oxycodone 5 mg Tablet 2.5 mg PO Q3HR PRN (Reason: Pain, Moderate (4-6)) 7 Days Qty: 10 0RF Continued coenzyme Q10 [CoQ-10] 100 mg capsule 200 mg PO DAILY cholecalciferol (vitamin D3) 125 mcg (5,000 unit) capsule 5,000 unit PO QDAY Qty: 0 chlorthalidone 25 mg tablet 12.5 mg PO DAILY atorvastatin [Lipitor] 10 mg tablet 10 mg PO HS Qty: 90 3RF losartan 100 mg tablet 100 mg PO BEDTIME Qty: 90 3RF gabapentin 300 mg capsule 900 mg PO BEDTIME Qty: 270 3RF Label Comments: Pt reports she's been taking 2 caps recently famotidine 40 mg tablet 40 mg PO BEDTIME Qty: 30 0RF zolpidem 10 mg tablet 5 mg PO BEDTIME PRN (Reason: sleep) Qty: 30 0RF Rx Instructions: takes 2.5mg (DME) pen needle, diabetic [1st Tier Unifine Pentips] 31 gauge x 5/16 needle See Dose Instructions .ROUTE .MEDSUPPLY Qty: 100 11RF Dose Instruction: As directed Rx Instructions: use to inject insulin at bedtime carvedilol 25 mg tablet See Rx Instructions .ROUTE .COMPLEX Qty: 60 5RF Dose Instruction: take 1 tablet by mouth twice a day with food or with meals Rx Instructions: take 1 tablet by mouth twice a day with food or with meals amlodipine 10 mg tablet 5 mg PO DAILY Qty: 90 3RF escitalopram oxalate [Lexapro] 10 mg tablet 10 mg PO QDAY Qty: 90 3RF Hold Instructions: med change Sutab 1.479-0.188- 0.225 gram tablet See Rx Instructions PO PER PKG DIR Qty: 24 0RF Rx Instructions: Take as directed by Physician (DME) Blood Glucose Test Strip See Rx Instructions .ROUTE .MEDSUPPLY Qty: 200 11RF Rx Instructions: use to test blood sugar three times daily as directed ondansetron 4 mg tablet,disintegrating 4 mg PO Q8H PRN (Reason: nausea and vomiting) Qty: 10 0RF metformin 500 mg tablet extended release 24 hr 1,000 mg PO DAILY glimepiride 4 mg Tablet 8 mg PO QAM PreserVision AREDS [id number] Capsule 1 cap PO BID insulin aspart U-100 [Novolog Flexpen U-100 Insulin] 100 unit/mL (3 mL) insulin pen 5 - 6 unit SUBCUT TIDWM Rx Instructions: 3 nits insulin glargine [Basaglar KwikPen U-100 Insulin] 100 unit/mL (3 mL) Insulin Pen 14 unit SUBCUT BEDTIME Januvia 50 mg Tablet 50 mg PO DAILY Discontinued doxycycline hyclate 100 mg tablet 100 mg PO BID 10 Days Qty: 20 0RF Label Comments: Patient states she is not taking. Follow up/Referrals: Sylvie Roy DO [Primary Care Provider] - Visit Report/Discharge Packet Instructions: DI for Prescription Opioid Use, DI for Incision and Drainage, Doxycycline (By mouth) Stand Alone Forms: Patient Portal/API, Stroke Signs & Symptoms Discharge Data Primary Care Provider: Sylvie Roy
--- NOTE | 2022-06-18 13:19 | PC.NURSE ---
patient changed her own dressing. old dressing was saturated with blood and yellowish drainage.
--- NOTE | 2022-06-18 14:31 | PM.PNPO.1 ---
Subjective Subjective Date Patient Seen: 06/18/22 Time Patient Seen: 14:31 Interval history: s/p I and D left breast mastectomy site abscess. Doing well. +MRSA. Exam Vital Signs (past 8 hours): - 06/18/22 08:53 06/18/22 09:00 Temperature 97.4 F L Pulse Rate 76 Respiratory Rate 16 Blood Pressure 130/50 L Pulse Oximetry 95 Oxygen Delivery Method Room Air Oxygen Flow Rate 0 Oxygen Delivery Method Room Air Oxygen Flow Rate 0 Objective Labs Result Diagrams: 06/18/22 05:52 06/18/22 05:52 Labs: Laboratory Results - last 24 hr 06/18/22 06/18/22 05:52 05:52 WBC 8.4 RBC 3.65 L Hgb 10.4 L Hct 30.3 L MCV 83.1 MCH 28.4 MCHC 34.1 RDW 13.4 Plt Count 406 H Neut % (Auto) 73.0 Lymph % (Auto) 12.5 L [place] % (Auto) 10.4 Eos % (Auto) 3.4 Baso % (Auto) 0.7 Neut # (Auto) 6100 Lymph # (Auto) 1000 L [place] # (Auto) 900 Eos # (Auto) 300 Baso # (Auto) 100 Sodium 137 Potassium 3.7 Chloride 98 Carbon Dioxide 32 BUN 36 H Creatinine 1.42 H Estimated GFR 38 L BUN/Creatinine Ratio 25.4 H Glucose 155 H Calcium 8.9 Magnesium 1.6 PFSH Medical History Acute upper GI bleed Anxiety Breast cancer (1992) Breast cancer, left breast (2016) Cataract (2010) Chicken pox Diabetes mellitus (~1987) Fractures GERD (gastroesophageal reflux disease) Hayfever (~1959) History of recurrent ear infection Hyperlipidemia (~1997) Hyperparathyroidism (2013) Hypertension (~1997) Impingement syndrome of right shoulder Lumbar spine pain Measles Obesity (BMI 30-39.9) ROSCOE (obstructive sleep apnea) Osteopenia Osteoporosis Pneumonia Shoulder pain (2014) Sternal fracture (2014) Unilateral primary osteoarthritis, left knee Urinary incontinence (2012) Vertigo (2011) Surgical History Anesthesia complication H/O lumpectomy H/O mastectomy History of fusion of cervical spine (2011) History of knee replacement (2006) History of lumbar spinal fusion (2009) History of lumbar spinal fusion Hx of bilateral cataract extraction Status post left knee replacement Family History Father Hypertension High cholesterol Pneumonia Mother Hypertension Mental health problem Stroke History of hip surgery Grandfather Heart disease Hypertension High cholesterol Grandmother Hypertension High cholesterol Social History (Reviewed 06/13/22 @ 17:58 by Michelle Berman [facility]) marital status: household members: spouse occupational status: other Smoking Status: Never smoker alcohol intake: current substance use type: does not use Assessment & Plan Post-op Postoperative Procedures: Procedures Operation Date: 06/14/22 14:45 Actual Procedure Side Surgeon p I&D breast abscess Left Eliza Choi MD Postoperative status: doing well Postoperative status narrative: Going home Postoperative plan narrative: shower and change dressing daily and prn. Time Spent With Patient Time with patient: 25 - 35 minutes
== END 2022-06-18 14:31 | disposition home or self-care (01) | DRG 853 ==
LOC: ED 17:07 → AC 17:15 → ICU 18:30 → AC 06-16 14:45
PROVIDERS: Emergency Medicine; Internal Medicine; Surgery; Admitting Provider Student in an Organized Health Care Education/Training Program; Emergency Provider Nurse Practitioner Critical Care Medicine; Family Provider Family Medicine; PCP Family Medicine; Referring Provider Nurse Practitioner Critical Care Medicine; Visit Provider Student in an Organized Health Care Education/Training Program
PROC: 0H9U0ZZ Drainage of Left Breast, Open Approach (ICD-10-PCS; principal; 2022-06-14 14:45)
DX: A41.9 Sepsis, unspecified organism (principal); G93.41 Metabolic encephalopathy; N17.9 Acute kidney failure, unspecified; N61.1 Abscess of the breast and nipple; E11.22 Type 2 diabetes mellitus with diabetic chronic kidney disease; I12.9 Hypertensive chronic kidney disease with stage 1 through stage 4 chronic kidney disease, or unspecified chronic kidney disease; N18.30 Chronic kidney disease, stage 3 unspecified; B95.62 Methicillin resistant Staphylococcus aureus infection as the cause of diseases classified elsewhere; R65.20 Severe sepsis without septic shock; E78.5 Hyperlipidemia, unspecified; K21.9 Gastro-esophageal reflux disease without esophagitis; Z79.84 Long term (current) use of oral hypoglycemic drugs; Z20.822 Contact with and (suspected) exposure to COVID-19; Z66 Do not resuscitate; Z79.4 Long term (current) use of insulin
CPT/HCPCS: 0241U; 10060; 36415; 71045; 71250; 80048; 80053; 81003; 82962; 83036; 83605; 83690; 83735; 84145; 85025; 85610; 85651; 85730; 86140; 87040; 87070; 87075; 87077; 87147; 87186; 87205; 87797; 96365; 96375; 97162; 97530; 99232; 99284; A9270; J0692; J1170; J1650; J1815; J2185; J2250; J2405; J2704; J3010; J3475

== ENCOUNTER → 2022-07-13 10:37 | Outpatient (CLI) | payer MEDICARE, OTHER, SELFPAY ==
[2022-06-29 16:00] VITALS: BMI 30.5
== END ==
PROVIDERS: Family Provider Family Medicine; PCP Family Medicine; Visit Provider Surgery
DX: L02.818 Cutaneous abscess of other sites (principal); L03.818 Cellulitis of other sites
CPT/HCPCS: 87070; 87075; 87077; 87147; 87176; 87186; 87205

== ENCOUNTER → 2022-07-13 13:04 | Outpatient (CLI) | payer MEDICARE, OTHER, SELFPAY ==
[2022-06-29 16:00] VITALS: BMI 30.5
--- NOTE | 2022-07-13 13:08 | DI.CT.S_ITS ---
PROCEDURE: CT CHEST W CON INDICATIONS: follow up wound infection- LEFT mastectomy site. TECHNIQUE: After the administration of intravenous contrast, 5 mm thick sections acquired from the pulmonary apices to the posterior costophrenic angles. 1 mm axial lung, 5 mm thick coronal and sagittal reformats and 7 mm axial MIP were acquired. For radiation dose reduction, the following was used: automated exposure control, adjustment of mA and/or kV according to patient size. COMPARISON: [facility], CT, CT CHEST W CON, 05/12/2021, 11:15. [facility], CT, CT CHEST WO CON, 06/13/2022, 17:22. FINDINGS: Image quality: Excellent. Lungs and pleura: No acute air space opacities. No pleural effusions or pneumothorax. Central and peripheral airways are patent and normal in caliber. Mediastinum: Heart size is normal. Mild coronary artery calcifications. No pericardial effusion. No mediastinal or hilar adenopathy by size criteria. Thoracic aorta and central pulmonary arteries are normal in size. Esophagus is normal in caliber. No hiatal hernia. Bones and chest wall: Prior sternal fracture. ACDF. Multifocal areas of sclerosis at the left anterior ribs is unchanged. No vertebral body compression fractures. Enlarged right axillary lymph node measuring 1.5 cm, (2/14), previously 1.5 cm, and previously 1.2 cm. No supraclavicular adenopathy by size criteria. Prior left axillary dissection. Small left thyroid nodule. Right posterior lateral chest wall subcutaneous nodule measuring 1.7 cm, (2/39), previously 1.6 cm, and more remotely 1.2 cm. Left breast cavity measures 6.2 cm in diameter, (2/33), previously 5.4 cm. Overlying bandage or wound packing. Small amount of gas within the collection. There is thickening along the inferior anterior left chest wall. Abdomen: Hypodensity in the liver is unchanged. IMPRESSION: 1. Left breast cavity is not significantly changed. 2. Enlarged right axillary node is unchanged. 3. Right posterior lateral subcutaneous nodule is unchanged. This is indeterminate but could represent a sebaceous cysts. 4. Left anterior rib sclerosis is unchanged. Dictated by: Anuel King M.D. on 07/13/2022 at 15:16 Approved by: Anuel King M.D. on 07/13/2022 at 15:27
[2022-07-13 14:58] LABS: Add Manual Diff / Slide Review NO; Basophils Absolute Auto 100 /uL (0-100); Basophils Percent Auto 0.6 % (0-2); Eosinophils Absolute Auto 200 /uL (0-450); Eosinophils Percent Auto 2.3 % (2-4); Hematocrit 29.4 % (36-46); Hemoglobin 9.6 g/dL (12.0-16.0); Lymphocytes Absolute Auto 1000 /uL (1100-4500); Lymphocytes Percent Auto 11.8 % (25-40); Mean Corpuscular HGB Conc 32.8 % (30-36); Mean Corpuscular Hemoglobin 27.7 PG (26-34); Mean Corpuscular Volume 84.3 fL (80-100); Monocytes Absolute Auto 800 /uL (0-900); Monocytes Percent Auto 9.8 % (3-14); Neutrophils Absolute Auto 6500 /uL (1500-7000); Neutrophils Percent Auto 75.5 % (50-75); Platelet Count 299 X10^3/uL (150-400); Red Blood Cell Count 3.48 X10^6/uL (4.0-5.2); Red Cell Distribution Width 14.2 % (11.6-14.8); White Blood Cell Count 8.6 X10^3/uL (4.5-11.0)
[2022-07-13 15:25] LABS: BUN Creatinine Ratio 20.7 (6-22); Blood Urea Nitrogen 40 mg/dL (7-17); Calcium 8.5 mg/dL (8.4-10.2); Carbon Dioxide 25 mmol/L (22-32); Chloride 99 mmol/L (98-107); Estimated Glomerular Filt Rate 27 mL/min (>60); Glucose 243 mg/dL (80-110); HEMOLYSIS < 15 (0-50); Potassium 3.7 mmol/L (3.4-5.1); Sodium 134 mmol/L (137-145)
== END ==
PROVIDERS: Family Provider Family Medicine; PCP Family Medicine; Referring Provider Surgery; Visit Provider Surgery
DX: L03.818 Cellulitis of other sites; L02.818 Cutaneous abscess of other sites; R59.0 Localized enlarged lymph nodes; M89.9 Disorder of bone, unspecified
CPT/HCPCS: 36415; 71260; 80048; 85025; 87070; 87075; 87077; 87147; 87176; 87186; 87205; 99213; Q9967

== ENCOUNTER → 2022-07-17 14:19 | Outpatient (CLI) | payer MEDICARE, OTHER, SELFPAY ==
[2022-06-29 16:00] VITALS: BMI 30.5
== END ==
PROVIDERS: Family Provider Family Medicine; PCP Family Medicine; Referring Provider Surgery; Visit Provider Surgery
DX: S21.002A Unspecified open wound of left breast, initial encounter (principal); L59.9 Disorder of the skin and subcutaneous tissue related to radiation, unspecified; E11.628 Type 2 diabetes mellitus with other skin complications; B95.62 Methicillin resistant Staphylococcus aureus infection as the cause of diseases classified elsewhere; L53.9 Erythematous condition, unspecified
CPT/HCPCS: 11042; 99204; 99213

== ENCOUNTER → 2022-07-24 13:20 | Outpatient (CLI) | payer MEDICARE, OTHER, SELFPAY ==
[2022-06-29 16:00] VITALS: BMI 30.5
== END ==
PROVIDERS: Family Provider Family Medicine; PCP Family Medicine; Referring Provider Family Medicine; Visit Provider Surgery
DX: S21.002A Unspecified open wound of left breast, initial encounter (principal); T81.31XA Disruption of external operation (surgical) wound, not elsewhere classified, initial encounter; L59.8 Other specified disorders of the skin and subcutaneous tissue related to radiation; B95.62 Methicillin resistant Staphylococcus aureus infection as the cause of diseases classified elsewhere; R60.0 Localized edema; L53.9 Erythematous condition, unspecified; L08.9 Local infection of the skin and subcutaneous tissue, unspecified; L03.313 Cellulitis of chest wall; L59.9 Disorder of the skin and subcutaneous tissue related to radiation, unspecified
CPT/HCPCS: 11042; 36415; 80048; 83036; 85025

== ENCOUNTER → 2022-07-24 14:07 | Outpatient (CLI) | payer MEDICARE, OTHER, SELFPAY ==
[2022-06-29 16:00] VITALS: BMI 30.5
[2022-07-24 15:38] LABS: Add Manual Diff / Slide Review NO; Basophils Absolute Auto 100 /uL (0-100); Basophils Percent Auto 0.8 % (0-2); Eosinophils Absolute Auto 100 /uL (0-450); Eosinophils Percent Auto 0.8 % (2-4); Hemoglobin 10.1 g/dL (12.0-16.0); Lymphocytes Absolute Auto 1000 /uL (1100-4500); Lymphocytes Percent Auto 9.9 % (25-40); Mean Corpuscular HGB Conc 33.7 % (30-36); Mean Corpuscular Hemoglobin 28.1 PG (26-34); Mean Corpuscular Volume 83.5 fL (80-100); Monocytes Absolute Auto 700 /uL (0-900); Monocytes Percent Auto 6.4 % (3-14); Neutrophils Absolute Auto 8600 /uL (1500-7000); Neutrophils Percent Auto 82.1 % (50-75); Platelet Count 384 X10^3/uL (150-400); Red Blood Cell Count 3.59 X10^6/uL (4.0-5.2); Red Cell Distribution Width 14.7 % (11.6-14.8); White Blood Cell Count 10.4 X10^3/uL (4.5-11.0)
[2022-07-24 15:47] LABS: Hemoglobin A1C% w Est Avg Glu 7.5 % (4.0-6.0)
[2022-07-24 16:08] LABS: BUN Creatinine Ratio 32.4 (6-22); Blood Urea Nitrogen 55 mg/dL (7-17); Calcium 8.6 mg/dL (8.4-10.2); Carbon Dioxide 25 mmol/L (22-32); Chloride 100 mmol/L (98-107); Estimated Glomerular Filt Rate 31 mL/min (>60); Glucose 343 mg/dL (80-110); HEMOLYSIS < 15 (0-50); Potassium 3.8 mmol/L (3.4-5.1); Sodium 135 mmol/L (137-145)
== END ==
PROVIDERS: Family Provider Family Medicine; PCP Family Medicine; Referring Provider Surgery; Visit Provider Surgery
DX: L03.313 Cellulitis of chest wall (principal); L59.9 Disorder of the skin and subcutaneous tissue related to radiation, unspecified
CPT/HCPCS: 36415; 80048; 83036; 85025

== ENCOUNTER → 2022-07-31 10:51 | Outpatient (CLI) | payer MEDICARE, OTHER, SELFPAY ==
[2022-06-29 16:00] VITALS: BMI 30.5
== END ==
PROVIDERS: Family Provider Family Medicine; PCP Family Medicine; Referring Provider Family Medicine; Visit Provider Surgery
DX: L59.8 Other specified disorders of the skin and subcutaneous tissue related to radiation (principal); S21.002A Unspecified open wound of left breast, initial encounter; B95.62 Methicillin resistant Staphylococcus aureus infection as the cause of diseases classified elsewhere; L03.313 Cellulitis of chest wall; Z85.3 Personal history of malignant neoplasm of breast
CPT/HCPCS: 11042

== ENCOUNTER → 2022-08-01 15:40 | Outpatient (CLI) | payer MEDICARE, OTHER, SELFPAY ==
[2022-06-29 16:00] VITALS: BMI 30.5
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
== END ==
PROVIDERS: Family Provider Family Medicine; PCP Family Medicine; Referring Provider Family Medicine; Visit Provider Family Medicine
DX: E11.9 Type 2 diabetes mellitus without complications (principal); Z79.4 Long term (current) use of insulin; Z79.84 Long term (current) use of oral hypoglycemic drugs; Z71.3 Dietary counseling and surveillance
CPT/HCPCS: 97802

== ENCOUNTER → 2022-08-07 11:10 | Outpatient (CLI) | payer MEDICARE, OTHER, SELFPAY ==
[2022-06-29 16:00] VITALS: BMI 30.5
== END ==
PROVIDERS: Family Provider Family Medicine; PCP Family Medicine; Referring Provider Family Medicine; Visit Provider Surgery
DX: C50.919 Malignant neoplasm of unspecified site of unspecified female breast (principal); S21.002A Unspecified open wound of left breast, initial encounter; L59.8 Other specified disorders of the skin and subcutaneous tissue related to radiation; L53.9 Erythematous condition, unspecified; R60.0 Localized edema; R21 Rash and other nonspecific skin eruption
CPT/HCPCS: 11042; 36415; 80048; 83880; 85025; 87070; 87075; 87077; 87147; 87186; 87205; 99214

== ENCOUNTER → 2022-08-07 12:15 | Outpatient (CLI) | payer MEDICARE, OTHER, SELFPAY ==
[2022-06-29 16:00] VITALS: BMI 30.5
[2022-08-07 12:52] LABS: Add Manual Diff / Slide Review NO; Basophils Absolute Auto 100 /uL (0-100); Basophils Percent Auto 0.5 % (0-2); Eosinophils Absolute Auto 200 /uL (0-450); Eosinophils Percent Auto 1.8 % (2-4); Hematocrit 27.9 % (36-46); Hemoglobin 9.1 g/dL (12.0-16.0); Lymphocytes Absolute Auto 700 /uL (1100-4500); Lymphocytes Percent Auto 6.7 % (25-40); Mean Corpuscular HGB Conc 32.8 % (30-36); Mean Corpuscular Hemoglobin 27.5 PG (26-34); Mean Corpuscular Volume 83.8 fL (80-100); Monocytes Absolute Auto 900 /uL (0-900); Monocytes Percent Auto 8.1 % (3-14); Neutrophils Absolute Auto 8900 /uL (1500-7000); Neutrophils Percent Auto 82.9 % (50-75); Platelet Count 326 X10^3/uL (150-400); Red Blood Cell Count 3.33 X10^6/uL (4.0-5.2); White Blood Cell Count 10.7 X10^3/uL (4.5-11.0)
[2022-08-07 13:18] LABS: BUN Creatinine Ratio 19.3 (6-22); Blood Urea Nitrogen 27 mg/dL (7-17); Carbon Dioxide 29 mmol/L (22-32); Chloride 101 mmol/L (98-107); Estimated Glomerular Filt Rate 39 mL/min (>60); Glucose 233 mg/dL (80-110); HEMOLYSIS < 15 (0-50); Potassium 4.1 mmol/L (3.4-5.1); Sodium 136 mmol/L (137-145)
[2022-08-09 11:27] LABS: NT-proBNP (BNP-Adult 18+) 1060 pg/mL (<450)
== END ==
PROVIDERS: Physician Assistant; Family Provider Family Medicine; PCP Family Medicine; Referring Provider Surgery; Visit Provider Surgery
DX: C50.919 Malignant neoplasm of unspecified site of unspecified female breast (principal)
CPT/HCPCS: 36415; 80048; 85025

== ENCOUNTER → 2022-08-08 13:16 | Outpatient (CLI) | payer MEDICARE, OTHER, SELFPAY ==
[2022-06-29 16:00] VITALS: BMI 30.5
--- NOTE | 2022-08-08 13:18 | DI.RAD.S_ITS ---
PROCEDURE: XR CHEST 2V INDICATIONS: Suspect pulmonary edema TECHNIQUE: 2 views of the chest were acquired. COMPARISON: Merged With [facility], CR, XR CHEST 1V, 06/13/2022, 16:32. Merged With [facility], CT, CT CHEST W CON, 07/13/2022, 13:49. Merged With [facility], CT, CT CHEST WO CON, 06/13/2022, 17:22. Merged With [facility], CR, XR CHEST 2V, 09/29/2020, 11:13. FINDINGS: Surgical changes and devices: None. Lungs and pleura: Ill-defined opacities seen in the left upper lung zone. No pleural effusions or pneumothorax. Mediastinum: Mediastinal contours are normal. Heart size is normal. Bones and chest wall: There is left mastectomy. Surgical clips are seen in the left axilla. No suspicious bony abnormalities. Soft tissues appear unremarkable. IMPRESSION: Ill-defined opacities in the left upper lung zone which could represent scars, atelectasis or post radiation change but superimposed acute pneumonia cannot be excluded. Recommend clinical correlation. No findings to suggest pulmonary edema. Dictated by: Cole Lam M.D. on 08/09/2022 at 9:14 Approved by: Cole aLm M.D. on 08/09/2022 at 9:21
== END ==
PROVIDERS: Family Provider Family Medicine; PCP Family Medicine; Referring Provider Physician Assistant; Visit Provider Physician Assistant
DX: N18.32 Chronic kidney disease, stage 3b (principal); R05.9 Cough, unspecified; R60.9 Edema, unspecified
CPT/HCPCS: 71046

== ENCOUNTER → 2022-08-14 12:58 | Outpatient (CLI) | payer MEDICARE, OTHER, SELFPAY ==
[2022-06-29 16:00] VITALS: BMI 30.5
== END ==
PROVIDERS: Family Provider Family Medicine; PCP Family Medicine; Referring Provider Surgery; Visit Provider Surgery
DX: L59.8 Other specified disorders of the skin and subcutaneous tissue related to radiation (principal); S21.002A Unspecified open wound of left breast, initial encounter; L03.313 Cellulitis of chest wall; B95.62 Methicillin resistant Staphylococcus aureus infection as the cause of diseases classified elsewhere; R60.0 Localized edema; R21 Rash and other nonspecific skin eruption
CPT/HCPCS: 11042; 99212; 99213

== ENCOUNTER → 2022-08-16 06:43 | Outpatient (CLI) | payer MEDICARE, OTHER, SELFPAY ==
[2022-06-29 16:00] VITALS: BMI 30.5
--- NOTE | 2022-08-16 06:45 | DI.ECHO.S_ITS ---
Version: 1 Study ID: [id number] [place] [id number] Name: ALAN SAL Study Date: 08/16/2022, 6: 20 AM : 1945 BP: 153 / 76 mmHg Gender: Female Height: 62 in Age: 76 Years Weight: 183 lb BSA: 1.84 mA? Ordering: DIPESH NG Referring: DIPESH NG Clinician: Aliza Sanchez Reason For Study: EDEMA, ELEVATED BNP History: Summary Statements This is a technically difficult study complicated by difficulty with parasternal views due to chest wound. Normal sinus rhythm. Normal LV size and wall thickness. Normal wall motion and LV systolic function. Ejection fraction is 60-65%. Borderline LA enlargement; otherwise normal chamber sizes. Moderate mitral annular calcification and aortic sclerosis without stenosis. Otherwise no significant valvular abnormalities otherwise. Compared to prior study obtained 10/25/2020, no significant changes have occurred. Procedure: A two-dimensional transthoracic echocardiogram with color flow and Doppler was performed. The study quality was technically adequate. Comparison is made with the echocardiogram of 10/25/2020. Patient had a packed open wound on chest which was very sensitive to work around. The patient was in sinus rhythm with heart rates between 62-74 bpm during the exam. Left Ventricle: The ejection fraction is estimated to be 60-65%. The left ventricle is normal in size. Left ventricular wall thickness is mildly increased. Right Ventricle: The right ventricle is normal in size and function. Atria: There is no Doppler evidence for an interatrial shunt. The left atrium is borderline dilated. Right atrial size is normal. Mitral Valve: There is no mitral regurgitation noted. The mitral valve is normal in structure and function. Aortic Valve: There is mild aortic regurgitation. There is no aortic valve stenosis. The aortic valve opens well. Tricuspid Valve: No tricuspid regurgitation. Pulmonary artery pressures cannot be estimated because of the lack of a measurable TR jet velocity. The tricuspid valve is not well visualized, but is grossly normal. Pulmonic Valve: There is no pulmonic valvular regurgitation. The pulmonic valve leaflets are thin and pliable; valve motion is normal. Great Vessels: The aortic root is normal size. The IVC is of normal diameter and collapses greater than 50% with a sniff. This suggests a low right atrial pressure of 3 mm Hg. Pericardium/ Pleura: There is no pericardial effusion. There is no pleural effusion. 2D and M-Mode Measurements and Calculations LVIDd: 3.3 cm LVOT diam: 2.04 cm LVIDs: 2.35 cm Ao root diam: 3.2 cm IVSd: 0.94 cm asc Aorta Diam: 3.2 cm LVPWd: 1.30 cm LV moise. diameter/BSA (cm/m^2): 1.80 LV sys. diameter/BSA (cm/m^2): 1.28 TAPSE: 1.78 cm LA A4 area: 15.9 cooperative education director? IVC diam: 1.66 cm LA A2 area: 24.5 cooperative education director? RA area: 15.1 cooperative education director? LA length (vol): 5.3 cm RA long axis: 4.5 cm LA vol: 62.2 ml RA vol: 43.3 ml LA vol index: 33.8 ml/mA? RA : 23.5 ml/mA? Doppler Measurements and Calculations Ao V2 max: 130.4 cm/sec LVOT Max Memo: 107.2 cm/sec Ao V2 mean: 95.6 cm/sec LV V1 max P.6 mmHg Ao V2 VTI: 30.9 cm LV V1 VTI: 26.6 cm Ao max P.8 mmHg SV(LVOT): 87.2 ml Ao mean P.0 mmHg LOC(I,D): 2.8 cooperative education director? LOC(V,D): 2.7 cooperative education director? LOC indexed to BSA (cm^2/m^2): 1.53 sev ratio: 0.86 MV E max memo: 94.5 cm/sec MV dec time: 0.17 sec MV A max memo: 75.6 cm/sec MV E/A: 1.25 Med Peak E' Memo: 7.6 cm/sec Lat Peak E' Memo: 8.3 cm/sec E/e' average: 11.9 PA V2 max: 88.0 cm/sec PA mean P.78 mmHg Electronically signed by: Michelle Henry M.D. 08/16/2022, 6: 59 PM
== END ==
PROVIDERS: Family Provider Family Medicine; PCP Family Medicine; Referring Provider Family Medicine; Visit Provider Family Medicine
DX: I35.1 Nonrheumatic aortic (valve) insufficiency (principal); R60.9 Edema, unspecified; R79.89 Other specified abnormal findings of blood chemistry
CPT/HCPCS: 93306

== ENCOUNTER → 2022-08-21 12:51 | Outpatient (CLI) | payer MEDICARE, OTHER, SELFPAY ==
[2022-08-16 11:07] VITALS: BMI 30.5
--- NOTE | 2022-08-21 15:50 | PC.NURSE ---
CHRONIC WOUND AT LEFT MASTECTOMY SITE: PATIENT CALLED WANTING TO MAKE DR CONTRERAS AWARE AND SEE HIM, IF HE THOUGHT ADVISABLE, EARLIER THAN HER F/U SCHEDULED FOR MARCH. SHE STATED THAT SHE WILL BE SOON STARTING HYPERBARIC TXS FOR THE NON-HEALING WOUND AT THE L. MASTECTOMY SITE. DR CONTRERAS INFORMED WITH THIS NOTE WITH REQUEST FOR ANY NEW ORDERS.
== END ==
PROVIDERS: Family Provider Family Medicine; PCP Family Medicine; Referring Provider Surgery; Visit Provider Surgery
DX: B95.62 Methicillin resistant Staphylococcus aureus infection as the cause of diseases classified elsewhere (principal); L59.8 Other specified disorders of the skin and subcutaneous tissue related to radiation; S21.002A Unspecified open wound of left breast, initial encounter; L03.313 Cellulitis of chest wall; R21 Rash and other nonspecific skin eruption; R60.9 Edema, unspecified; L53.9 Erythematous condition, unspecified
CPT/HCPCS: 11042

== ENCOUNTER → 2022-08-24 10:50 | Outpatient (CLI) | payer MEDICARE, OTHER, SELFPAY ==
[2022-08-16 11:07] VITALS: BMI 30.5
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
== END ==
PROVIDERS: Family Provider Family Medicine; PCP Family Medicine; Referring Provider Family Medicine; Visit Provider Family Medicine
DX: E11.9 Type 2 diabetes mellitus without complications (principal); Z79.84 Long term (current) use of oral hypoglycemic drugs; Z79.4 Long term (current) use of insulin; Z71.3 Dietary counseling and surveillance
CPT/HCPCS: 97803

== ENCOUNTER → 2022-08-29 09:45 | Outpatient (CLI) | payer MEDICARE, OTHER, SELFPAY ==
[2022-08-16 11:07] VITALS: BMI 30.5
== END ==
PROVIDERS: Family Provider Family Medicine; PCP Family Medicine; Referring Provider Surgery; Visit Provider Surgery
DX: L59.8 Other specified disorders of the skin and subcutaneous tissue related to radiation (principal); S21.002A Unspecified open wound of left breast, initial encounter; B95.62 Methicillin resistant Staphylococcus aureus infection as the cause of diseases classified elsewhere; Z85.3 Personal history of malignant neoplasm of breast
CPT/HCPCS: 11042; 97605; 99213

== ENCOUNTER → 2022-08-31 14:17 | Outpatient (CLI) | payer MEDICARE, OTHER, SELFPAY ==
[2022-08-16 11:07] VITALS: BMI 30.5
== END ==
PROVIDERS: Family Provider Family Medicine; PCP Family Medicine; Referring Provider Family Medicine; Visit Provider Nurse Practitioner Family
DX: L59.8 Other specified disorders of the skin and subcutaneous tissue related to radiation (principal); S21.002A Unspecified open wound of left breast, initial encounter; R60.0 Localized edema; R21 Rash and other nonspecific skin eruption
CPT/HCPCS: 97605; 99211; 99212

== ENCOUNTER → 2022-09-04 10:55 | Outpatient (CLI) | payer MEDICARE, OTHER, SELFPAY ==
[2022-08-16 11:07] VITALS: BMI 30.5
== END ==
PROVIDERS: Family Provider Family Medicine; PCP Family Medicine; Referring Provider Surgery; Visit Provider Surgery
DX: L59.8 Other specified disorders of the skin and subcutaneous tissue related to radiation (principal); S21.002A Unspecified open wound of left breast, initial encounter; R60.0 Localized edema
CPT/HCPCS: 97605; 99183; 99212; G0277

== ENCOUNTER → 2022-09-05 14:54 | Outpatient (CLI) | payer MEDICARE, OTHER, SELFPAY ==
[2022-08-16 11:07] VITALS: BMI 30.5
== END ==
PROVIDERS: Family Provider Family Medicine; PCP Family Medicine; Referring Provider Family Medicine; Visit Provider Nurse Practitioner Family
DX: B95.62 Methicillin resistant Staphylococcus aureus infection as the cause of diseases classified elsewhere (principal); L03.313 Cellulitis of chest wall; T81.31XD Disruption of external operation (surgical) wound, not elsewhere classified, subsequent encounter; L59.8 Other specified disorders of the skin and subcutaneous tissue related to radiation
CPT/HCPCS: 99183; G0277

== ENCOUNTER → 2022-09-06 13:25 | Outpatient (CLI) | payer MEDICARE, OTHER, SELFPAY ==
[2022-08-16 11:07] VITALS: BMI 30.5
== END ==
PROVIDERS: Family Provider Family Medicine; PCP Family Medicine; Referring Provider Surgery; Visit Provider Nurse Practitioner Family
DX: L59.8 Other specified disorders of the skin and subcutaneous tissue related to radiation (principal)
CPT/HCPCS: 99183; G0277

== ENCOUNTER → 2022-09-07 12:52 | Outpatient (CLI) | payer MEDICARE, OTHER, SELFPAY ==
[2022-08-16 11:07] VITALS: BMI 30.5
== END ==
PROVIDERS: Family Provider Family Medicine; PCP Family Medicine; Referring Provider Family Medicine; Visit Provider Nurse Practitioner Family
DX: L03.313 Cellulitis of chest wall (principal); B95.62 Methicillin resistant Staphylococcus aureus infection as the cause of diseases classified elsewhere; T81.31XD Disruption of external operation (surgical) wound, not elsewhere classified, subsequent encounter; L59.8 Other specified disorders of the skin and subcutaneous tissue related to radiation; S21.002A Unspecified open wound of left breast, initial encounter
CPT/HCPCS: 97605; 99183; G0277

== ENCOUNTER → 2022-09-10 13:16 | Outpatient (CLI) | payer MEDICARE, OTHER, SELFPAY ==
[2022-08-16 11:07] VITALS: BMI 30.5
== END ==
PROVIDERS: Family Provider Family Medicine; PCP Family Medicine; Referring Provider Family Medicine; Visit Provider Surgery
DX: L03.313 Cellulitis of chest wall (principal); B95.62 Methicillin resistant Staphylococcus aureus infection as the cause of diseases classified elsewhere; T81.31XD Disruption of external operation (surgical) wound, not elsewhere classified, subsequent encounter; L59.8 Other specified disorders of the skin and subcutaneous tissue related to radiation
CPT/HCPCS: 99183; G0277

== ENCOUNTER → 2022-09-11 09:49 | Outpatient (CLI) | payer MEDICARE, OTHER, SELFPAY ==
[2022-08-16 11:07] VITALS: BMI 30.5
== END ==
PROVIDERS: Family Provider Family Medicine; PCP Family Medicine; Referring Provider Surgery; Visit Provider Surgery
DX: L59.8 Other specified disorders of the skin and subcutaneous tissue related to radiation (principal); B95.62 Methicillin resistant Staphylococcus aureus infection as the cause of diseases classified elsewhere; L03.313 Cellulitis of chest wall; T81.31XD Disruption of external operation (surgical) wound, not elsewhere classified, subsequent encounter; S21.002A Unspecified open wound of left breast, initial encounter; R60.0 Localized edema; R21 Rash and other nonspecific skin eruption
CPT/HCPCS: 11042; 97605; 99183; 99212; 99213; G0277

== ENCOUNTER → 2022-09-12 15:21 | Outpatient (CLI) | payer MEDICARE, OTHER, SELFPAY ==
[2022-08-16 11:07] VITALS: BMI 30.5
== END ==
PROVIDERS: Family Provider Family Medicine; PCP Family Medicine; Referring Provider Family Medicine; Visit Provider Surgery
DX: L03.313 Cellulitis of chest wall (principal); B95.62 Methicillin resistant Staphylococcus aureus infection as the cause of diseases classified elsewhere; T81.31XD Disruption of external operation (surgical) wound, not elsewhere classified, subsequent encounter; L59.8 Other specified disorders of the skin and subcutaneous tissue related to radiation
CPT/HCPCS: 99183; G0277

== ENCOUNTER → 2022-09-13 13:04 | Outpatient (CLI) | payer MEDICARE, OTHER, SELFPAY ==
[2022-08-16 11:07] VITALS: BMI 30.5
== END ==
PROVIDERS: Family Provider Family Medicine; PCP Family Medicine; Referring Provider Surgery; Visit Provider Surgery
DX: L59.8 Other specified disorders of the skin and subcutaneous tissue related to radiation (principal); B95.62 Methicillin resistant Staphylococcus aureus infection as the cause of diseases classified elsewhere; L03.313 Cellulitis of chest wall; T81.31XD Disruption of external operation (surgical) wound, not elsewhere classified, subsequent encounter
CPT/HCPCS: 99183; G0277

== ENCOUNTER → 2022-09-14 11:33 | Outpatient (CLI) | payer MEDICARE, OTHER, SELFPAY ==
[2022-08-16 11:07] VITALS: BMI 30.5
== END ==
PROVIDERS: Family Provider Family Medicine; PCP Family Medicine; Referring Provider Family Medicine; Visit Provider Nurse Practitioner Family
DX: L59.8 Other specified disorders of the skin and subcutaneous tissue related to radiation (principal); S21.002A Unspecified open wound of left breast, initial encounter; R60.0 Localized edema; L53.9 Erythematous condition, unspecified
CPT/HCPCS: 97605; 99183; G0277

== ENCOUNTER → 2022-09-17 13:33 | Outpatient (CLI) | payer MEDICARE, OTHER, SELFPAY ==
[2022-08-16 11:07] VITALS: BMI 30.5
== END ==
PROVIDERS: Family Provider Family Medicine; PCP Family Medicine; Referring Provider Family Medicine; Visit Provider Surgery
DX: L03.313 Cellulitis of chest wall (principal); B95.62 Methicillin resistant Staphylococcus aureus infection as the cause of diseases classified elsewhere; T81.31XD Disruption of external operation (surgical) wound, not elsewhere classified, subsequent encounter; L59.8 Other specified disorders of the skin and subcutaneous tissue related to radiation
CPT/HCPCS: 99183; G0277

== ENCOUNTER → 2022-09-18 11:56 | Outpatient (CLI) | payer MEDICARE, OTHER, SELFPAY ==
[2022-08-16 11:07] VITALS: BMI 30.5
== END ==
PROVIDERS: Family Provider Family Medicine; PCP Family Medicine; Referring Provider Surgery; Visit Provider Surgery
DX: L59.8 Other specified disorders of the skin and subcutaneous tissue related to radiation (principal); S21.002A Unspecified open wound of left breast, initial encounter; B95.62 Methicillin resistant Staphylococcus aureus infection as the cause of diseases classified elsewhere; L03.313 Cellulitis of chest wall; T81.31XD Disruption of external operation (surgical) wound, not elsewhere classified, subsequent encounter
CPT/HCPCS: 11042; 97605; 99183; G0277

== ENCOUNTER → 2022-09-19 12:55 | Outpatient (CLI) | payer MEDICARE, OTHER, SELFPAY ==
[2022-08-16 11:07] VITALS: BMI 30.5
== END ==
PROVIDERS: Family Provider Family Medicine; PCP Family Medicine; Referring Provider Surgery; Visit Provider Surgery
DX: B95.62 Methicillin resistant Staphylococcus aureus infection as the cause of diseases classified elsewhere (principal); L03.313 Cellulitis of chest wall; T81.31XD Disruption of external operation (surgical) wound, not elsewhere classified, subsequent encounter; L59.8 Other specified disorders of the skin and subcutaneous tissue related to radiation
CPT/HCPCS: 99183; G0277

== ENCOUNTER → 2022-09-20 13:23 | Outpatient (CLI) | payer MEDICARE, OTHER, SELFPAY ==
[2022-08-16 11:07] VITALS: BMI 30.5
== END ==
PROVIDERS: Family Provider Family Medicine; PCP Family Medicine; Referring Provider Family Medicine; Visit Provider Surgery
DX: L59.8 Other specified disorders of the skin and subcutaneous tissue related to radiation (principal); B95.62 Methicillin resistant Staphylococcus aureus infection as the cause of diseases classified elsewhere; L03.313 Cellulitis of chest wall; T81.31XD Disruption of external operation (surgical) wound, not elsewhere classified, subsequent encounter
CPT/HCPCS: 99183; G0277

== ENCOUNTER → 2022-09-21 12:56 | Outpatient (CLI) | payer MEDICARE, OTHER, SELFPAY ==
[2022-08-16 11:07] VITALS: BMI 30.5
== END ==
PROVIDERS: Family Provider Family Medicine; PCP Family Medicine; Referring Provider Family Medicine; Visit Provider Nurse Practitioner Family
DX: L59.8 Other specified disorders of the skin and subcutaneous tissue related to radiation (principal); B95.62 Methicillin resistant Staphylococcus aureus infection as the cause of diseases classified elsewhere; L03.313 Cellulitis of chest wall; T81.31XD Disruption of external operation (surgical) wound, not elsewhere classified, subsequent encounter; S21.002A Unspecified open wound of left breast, initial encounter; R60.0 Localized edema; R21 Rash and other nonspecific skin eruption
CPT/HCPCS: 97605; 99183; G0277

== ENCOUNTER → 2022-09-24 13:46 | Outpatient (CLI) | payer MEDICARE, OTHER, SELFPAY ==
[2022-08-16 11:07] VITALS: BMI 30.5
== END ==
PROVIDERS: Family Provider Family Medicine; PCP Family Medicine; Referring Provider Family Medicine; Visit Provider Surgery
DX: B95.62 Methicillin resistant Staphylococcus aureus infection as the cause of diseases classified elsewhere (principal); L03.313 Cellulitis of chest wall; L59.8 Other specified disorders of the skin and subcutaneous tissue related to radiation; T81.31XD Disruption of external operation (surgical) wound, not elsewhere classified, subsequent encounter
CPT/HCPCS: 99183; G0277

== ENCOUNTER → 2022-09-25 12:54 | Outpatient (CLI) | payer MEDICARE, OTHER, SELFPAY ==
[2022-08-16 11:07] VITALS: BMI 30.5
== END ==
PROVIDERS: Family Provider Family Medicine; PCP Family Medicine; Referring Provider Surgery; Visit Provider Surgery
DX: L59.8 Other specified disorders of the skin and subcutaneous tissue related to radiation (principal); L03.313 Cellulitis of chest wall; B95.62 Methicillin resistant Staphylococcus aureus infection as the cause of diseases classified elsewhere
CPT/HCPCS: 11042; 97605; 99183; G0277

== ENCOUNTER → 2022-09-26 11:31 | Outpatient (CLI) | payer MEDICARE, OTHER, SELFPAY ==
[2022-08-16 11:07] VITALS: BMI 30.5
== END ==
PROVIDERS: Family Provider Family Medicine; PCP Family Medicine; Referring Provider Family Medicine; Visit Provider Nurse Practitioner Family
DX: L59.8 Other specified disorders of the skin and subcutaneous tissue related to radiation (principal); B95.62 Methicillin resistant Staphylococcus aureus infection as the cause of diseases classified elsewhere; L03.313 Cellulitis of chest wall; T81.31XD Disruption of external operation (surgical) wound, not elsewhere classified, subsequent encounter
CPT/HCPCS: 99183; G0277

== ENCOUNTER → 2022-09-27 13:03 | Outpatient (CLI) | payer MEDICARE, OTHER, SELFPAY ==
[2022-08-16 11:07] VITALS: BMI 30.5
== END ==
PROVIDERS: Family Provider Family Medicine; PCP Family Medicine; Referring Provider Surgery; Visit Provider Surgery
DX: L03.313 Cellulitis of chest wall (principal); B95.62 Methicillin resistant Staphylococcus aureus infection as the cause of diseases classified elsewhere; T81.31XD Disruption of external operation (surgical) wound, not elsewhere classified, subsequent encounter; L59.8 Other specified disorders of the skin and subcutaneous tissue related to radiation
CPT/HCPCS: 99183; G0277

== ENCOUNTER → 2022-09-28 12:49 | Outpatient (CLI) | payer MEDICARE, OTHER, SELFPAY ==
[2022-08-16 11:07] VITALS: BMI 30.5
== END ==
PROVIDERS: Family Provider Family Medicine; PCP Family Medicine; Referring Provider Family Medicine; Visit Provider Nurse Practitioner Family
DX: L03.313 Cellulitis of chest wall (principal); B95.62 Methicillin resistant Staphylococcus aureus infection as the cause of diseases classified elsewhere; T81.31XD Disruption of external operation (surgical) wound, not elsewhere classified, subsequent encounter; L59.8 Other specified disorders of the skin and subcutaneous tissue related to radiation; S21.002A Unspecified open wound of left breast, initial encounter; R60.0 Localized edema; R21 Rash and other nonspecific skin eruption; L53.9 Erythematous condition, unspecified
CPT/HCPCS: 97605; 99183; G0277

== ENCOUNTER → 2022-10-01 13:29 | Outpatient (CLI) | payer MEDICARE, OTHER, SELFPAY ==
[2022-08-16 11:07] VITALS: BMI 30.5
== END ==
PROVIDERS: Family Provider Family Medicine; PCP Family Medicine; Referring Provider Family Medicine; Visit Provider Surgery
DX: B95.62 Methicillin resistant Staphylococcus aureus infection as the cause of diseases classified elsewhere (principal); L03.313 Cellulitis of chest wall; T81.31XD Disruption of external operation (surgical) wound, not elsewhere classified, subsequent encounter; L59.8 Other specified disorders of the skin and subcutaneous tissue related to radiation
CPT/HCPCS: 99183; G0277

== ENCOUNTER → 2022-10-02 12:57 | Outpatient (CLI) | payer MEDICARE, OTHER, SELFPAY ==
[2022-08-16 11:07] VITALS: BMI 30.5
== END ==
PROVIDERS: Family Provider Family Medicine; PCP Family Medicine; Referring Provider Surgery; Visit Provider Surgery
DX: L59.8 Other specified disorders of the skin and subcutaneous tissue related to radiation (principal); B95.62 Methicillin resistant Staphylococcus aureus infection as the cause of diseases classified elsewhere; L03.313 Cellulitis of chest wall; T81.31XD Disruption of external operation (surgical) wound, not elsewhere classified, subsequent encounter
CPT/HCPCS: 11042; 87070; 87075; 87077; 87147; 87186; 87205; 97605; 99183; 99213; G0277

== ENCOUNTER → 2022-10-03 13:00 | Outpatient (CLI) | payer MEDICARE, OTHER, SELFPAY ==
[2022-08-16 11:07] VITALS: BMI 30.5
== END ==
PROVIDERS: Family Provider Family Medicine; PCP Family Medicine; Referring Provider Surgery; Visit Provider Surgery
DX: L59.8 Other specified disorders of the skin and subcutaneous tissue related to radiation (principal); B95.62 Methicillin resistant Staphylococcus aureus infection as the cause of diseases classified elsewhere; L03.313 Cellulitis of chest wall; T81.31XD Disruption of external operation (surgical) wound, not elsewhere classified, subsequent encounter
CPT/HCPCS: 99183; G0277

== ENCOUNTER → 2022-10-04 13:29 | Outpatient (CLI) | payer MEDICARE, OTHER, SELFPAY ==
[2022-08-16 11:07] VITALS: BMI 30.5
== END ==
PROVIDERS: Family Provider Family Medicine; PCP Family Medicine; Referring Provider Surgery; Visit Provider Surgery
DX: L59.8 Other specified disorders of the skin and subcutaneous tissue related to radiation (principal); B95.62 Methicillin resistant Staphylococcus aureus infection as the cause of diseases classified elsewhere; L03.313 Cellulitis of chest wall; T81.31XD Disruption of external operation (surgical) wound, not elsewhere classified, subsequent encounter
CPT/HCPCS: 99183; G0277

== ENCOUNTER → 2022-10-05 11:56 | Outpatient (CLI) | payer MEDICARE, OTHER, SELFPAY ==
[2022-08-16 11:07] VITALS: BMI 30.5
== END ==
PROVIDERS: Family Provider Family Medicine; PCP Family Medicine; Referring Provider Surgery; Visit Provider Nurse Practitioner Family
DX: S21.002A Unspecified open wound of left breast, initial encounter (principal); L59.8 Other specified disorders of the skin and subcutaneous tissue related to radiation; R60.0 Localized edema; L53.9 Erythematous condition, unspecified; R21 Rash and other nonspecific skin eruption; B95.62 Methicillin resistant Staphylococcus aureus infection as the cause of diseases classified elsewhere; L03.313 Cellulitis of chest wall; T81.31XD Disruption of external operation (surgical) wound, not elsewhere classified, subsequent encounter
CPT/HCPCS: 97605; 99183; G0277

== ENCOUNTER → 2022-10-08 15:06 | Outpatient (CLI) | payer MEDICARE, OTHER, SELFPAY ==
[2022-08-16 11:07] VITALS: BMI 30.5
== END ==
PROVIDERS: Family Provider Family Medicine; PCP Family Medicine; Referring Provider Family Medicine; Visit Provider Surgery
DX: L59.8 Other specified disorders of the skin and subcutaneous tissue related to radiation (principal); B95.62 Methicillin resistant Staphylococcus aureus infection as the cause of diseases classified elsewhere; L03.313 Cellulitis of chest wall; T81.31XD Disruption of external operation (surgical) wound, not elsewhere classified, subsequent encounter
CPT/HCPCS: 99183; G0277

== ENCOUNTER → 2022-10-09 12:54 | Outpatient (CLI) | payer MEDICARE, OTHER, SELFPAY ==
[2022-08-16 11:07] VITALS: BMI 30.5
== END ==
PROVIDERS: Family Provider Family Medicine; PCP Family Medicine; Referring Provider Family Medicine; Visit Provider Surgery
DX: B95.62 Methicillin resistant Staphylococcus aureus infection as the cause of diseases classified elsewhere (principal); L03.313 Cellulitis of chest wall; T81.31XD Disruption of external operation (surgical) wound, not elsewhere classified, subsequent encounter; L59.8 Other specified disorders of the skin and subcutaneous tissue related to radiation
CPT/HCPCS: 11042; 97605; 99183; 99213; G0277

== ENCOUNTER → 2022-10-10 12:11 | Outpatient (CLI) | payer MEDICARE, OTHER, SELFPAY ==
[2022-08-16 11:07] VITALS: BMI 30.5
== END ==
PROVIDERS: Family Provider Family Medicine; PCP Family Medicine; Referring Provider Surgery; Visit Provider Surgery
DX: B95.62 Methicillin resistant Staphylococcus aureus infection as the cause of diseases classified elsewhere (principal); L03.313 Cellulitis of chest wall; T81.31XD Disruption of external operation (surgical) wound, not elsewhere classified, subsequent encounter; L59.8 Other specified disorders of the skin and subcutaneous tissue related to radiation
CPT/HCPCS: 99183; G0277

== ENCOUNTER → 2022-10-11 13:32 | Outpatient (CLI) | payer MEDICARE, OTHER, SELFPAY ==
[2022-08-16 11:07] VITALS: BMI 30.5
== END ==
PROVIDERS: Family Provider Family Medicine; PCP Family Medicine; Referring Provider Surgery; Visit Provider Surgery
DX: B95.62 Methicillin resistant Staphylococcus aureus infection as the cause of diseases classified elsewhere (principal); L03.313 Cellulitis of chest wall; T81.31XD Disruption of external operation (surgical) wound, not elsewhere classified, subsequent encounter; L59.8 Other specified disorders of the skin and subcutaneous tissue related to radiation
CPT/HCPCS: 99183; G0277

== ENCOUNTER → 2022-10-12 10:41 | Outpatient (CLI) | payer MEDICARE, OTHER, SELFPAY ==
[2022-08-16 11:07] VITALS: BMI 30.5
== END ==
PROVIDERS: Family Provider Family Medicine; PCP Family Medicine; Referring Provider Surgery; Visit Provider Nurse Practitioner Family
DX: B95.62 Methicillin resistant Staphylococcus aureus infection as the cause of diseases classified elsewhere (principal); L03.313 Cellulitis of chest wall; T81.31XD Disruption of external operation (surgical) wound, not elsewhere classified, subsequent encounter; L59.8 Other specified disorders of the skin and subcutaneous tissue related to radiation
CPT/HCPCS: 97605; 99183; G0277

== ENCOUNTER → 2022-10-15 14:18 | Outpatient (CLI) | payer MEDICARE, OTHER, SELFPAY ==
[2022-08-16 11:07] VITALS: BMI 30.5
== END ==
PROVIDERS: Family Provider Family Medicine; PCP Family Medicine; Referring Provider Family Medicine; Visit Provider Surgery
DX: L59.8 Other specified disorders of the skin and subcutaneous tissue related to radiation (principal); B95.62 Methicillin resistant Staphylococcus aureus infection as the cause of diseases classified elsewhere; L03.313 Cellulitis of chest wall; T81.31XD Disruption of external operation (surgical) wound, not elsewhere classified, subsequent encounter
CPT/HCPCS: 99183; G0277

== ENCOUNTER → 2022-10-16 13:04 | Outpatient (CLI) | payer MEDICARE, OTHER, SELFPAY ==
[2022-08-16 11:07] VITALS: BMI 30.5
== END ==
PROVIDERS: Family Provider Family Medicine; PCP Family Medicine; Referring Provider Family Medicine; Visit Provider Surgery
DX: L03.313 Cellulitis of chest wall (principal); B95.62 Methicillin resistant Staphylococcus aureus infection as the cause of diseases classified elsewhere; T81.31XD Disruption of external operation (surgical) wound, not elsewhere classified, subsequent encounter; L59.8 Other specified disorders of the skin and subcutaneous tissue related to radiation; S21.002A Unspecified open wound of left breast, initial encounter; R60.0 Localized edema; L53.9 Erythematous condition, unspecified
CPT/HCPCS: 97605; 99183; G0277

== ENCOUNTER → 2022-10-17 10:46 | Outpatient (CLI) | payer MEDICARE, OTHER, SELFPAY ==
[2022-08-16 11:07] VITALS: BMI 30.5
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
== END ==
PROVIDERS: Family Provider Family Medicine; PCP Family Medicine; Referring Provider Family Medicine; Visit Provider Family Medicine
DX: E11.9 Type 2 diabetes mellitus without complications (principal); Z68.30 Body mass index [BMI] 30.0-30.9, adult; Z71.3 Dietary counseling and surveillance
CPT/HCPCS: 97803

== ENCOUNTER → 2022-10-17 13:30 | Outpatient (CLI) | payer MEDICARE, OTHER, SELFPAY ==
[2022-08-16 11:07] VITALS: BMI 30.5
== END ==
PROVIDERS: Family Provider Family Medicine; PCP Family Medicine; Referring Provider Family Medicine; Visit Provider Surgery
DX: L59.8 Other specified disorders of the skin and subcutaneous tissue related to radiation (principal); T81.31XD Disruption of external operation (surgical) wound, not elsewhere classified, subsequent encounter; L03.313 Cellulitis of chest wall; B95.62 Methicillin resistant Staphylococcus aureus infection as the cause of diseases classified elsewhere; S21.002A Unspecified open wound of left breast, initial encounter
CPT/HCPCS: 97605; 99183; G0277

== ENCOUNTER → 2022-10-18 13:57 | Outpatient (CLI) | payer MEDICARE, OTHER, SELFPAY ==
[2022-08-16 11:07] VITALS: BMI 30.5
== END ==
PROVIDERS: Family Provider Family Medicine; PCP Family Medicine; Referring Provider Family Medicine; Visit Provider Surgery
DX: B95.62 Methicillin resistant Staphylococcus aureus infection as the cause of diseases classified elsewhere (principal); L03.313 Cellulitis of chest wall; T81.31XD Disruption of external operation (surgical) wound, not elsewhere classified, subsequent encounter; L59.8 Other specified disorders of the skin and subcutaneous tissue related to radiation
CPT/HCPCS: 99183; G0277

== ENCOUNTER → 2022-10-19 13:51 | Outpatient (CLI) | payer MEDICARE, OTHER, SELFPAY ==
[2022-08-16 11:07] VITALS: BMI 30.5
== END ==
PROVIDERS: Family Provider Family Medicine; PCP Family Medicine; Referring Provider Family Medicine; Visit Provider Physician Assistant
DX: L03.313 Cellulitis of chest wall (principal); B95.62 Methicillin resistant Staphylococcus aureus infection as the cause of diseases classified elsewhere; T81.31XD Disruption of external operation (surgical) wound, not elsewhere classified, subsequent encounter; L59.8 Other specified disorders of the skin and subcutaneous tissue related to radiation; S21.002A Unspecified open wound of left breast, initial encounter; Z90.12 Acquired absence of left breast and nipple
CPT/HCPCS: 97605; 99183; G0277

== ENCOUNTER → 2022-10-22 11:00 | Outpatient (CLI) | payer MEDICARE, OTHER, SELFPAY ==
[2022-08-16 11:07] VITALS: BMI 30.5
== END ==
PROVIDERS: Family Provider Family Medicine; PCP Family Medicine; Referring Provider Family Medicine; Visit Provider Surgery
DX: L03.313 Cellulitis of chest wall (principal); B95.62 Methicillin resistant Staphylococcus aureus infection as the cause of diseases classified elsewhere; T81.31XD Disruption of external operation (surgical) wound, not elsewhere classified, subsequent encounter; L59.8 Other specified disorders of the skin and subcutaneous tissue related to radiation; S21.002A Unspecified open wound of left breast, initial encounter; L08.9 Local infection of the skin and subcutaneous tissue, unspecified; R60.0 Localized edema; L53.9 Erythematous condition, unspecified
CPT/HCPCS: 11042; 97605; 99183; G0277

== ENCOUNTER → 2022-10-23 12:30 | Outpatient (CLI) | payer MEDICARE, OTHER, SELFPAY ==
[2022-08-16 11:07] VITALS: BMI 30.5
== END ==
PROVIDERS: Family Provider Family Medicine; PCP Family Medicine; Referring Provider Surgery; Visit Provider Surgery
DX: L59.8 Other specified disorders of the skin and subcutaneous tissue related to radiation (principal)
CPT/HCPCS: 99183; G0277

== ENCOUNTER → 2022-10-24 12:37 | Outpatient (CLI) | payer MEDICARE, OTHER, SELFPAY ==
[2022-08-16 11:07] VITALS: BMI 30.5
== END ==
PROVIDERS: Family Provider Family Medicine; PCP Family Medicine; Referring Provider Surgery; Visit Provider Surgery
DX: L59.8 Other specified disorders of the skin and subcutaneous tissue related to radiation (principal)
CPT/HCPCS: 99183; G0277

== ENCOUNTER → 2022-10-30 10:32 | Outpatient (CLI) | payer MEDICARE, OTHER, SELFPAY ==
[2022-08-16 11:07] VITALS: BMI 30.5
== END ==
PROVIDERS: Family Provider Family Medicine; PCP Family Medicine; Referring Provider Surgery; Visit Provider Surgery
DX: B95.62 Methicillin resistant Staphylococcus aureus infection as the cause of diseases classified elsewhere (principal); L03.313 Cellulitis of chest wall; T81.31XD Disruption of external operation (surgical) wound, not elsewhere classified, subsequent encounter; L59.8 Other specified disorders of the skin and subcutaneous tissue related to radiation
CPT/HCPCS: 11042; 99183; G0277

== ENCOUNTER → 2022-10-31 13:22 | Outpatient (CLI) | payer MEDICARE, OTHER, SELFPAY ==
[2022-08-16 11:07] VITALS: BMI 30.5
== END ==
PROVIDERS: Family Provider Family Medicine; PCP Family Medicine; Referring Provider Surgery; Visit Provider Surgery
DX: L03.313 Cellulitis of chest wall (principal); T81.31XD Disruption of external operation (surgical) wound, not elsewhere classified, subsequent encounter; L59.8 Other specified disorders of the skin and subcutaneous tissue related to radiation; B95.62 Methicillin resistant Staphylococcus aureus infection as the cause of diseases classified elsewhere
CPT/HCPCS: 97605; 99183; G0277

== ENCOUNTER → 2022-11-01 11:53 | Outpatient (CLI) | payer MEDICARE, OTHER, SELFPAY ==
[2022-08-16 11:07] VITALS: BMI 30.5
== END ==
PROVIDERS: Family Provider Family Medicine; PCP Family Medicine; Referring Provider Family Medicine; Visit Provider Surgery
DX: B95.62 Methicillin resistant Staphylococcus aureus infection as the cause of diseases classified elsewhere (principal); L03.313 Cellulitis of chest wall; T81.31XD Disruption of external operation (surgical) wound, not elsewhere classified, subsequent encounter; L59.8 Other specified disorders of the skin and subcutaneous tissue related to radiation
CPT/HCPCS: 99183; G0277

== ENCOUNTER → 2022-11-02 11:39 | Outpatient (CLI) | payer MEDICARE, OTHER, SELFPAY ==
[2022-08-16 11:07] VITALS: BMI 30.5
== END ==
PROVIDERS: Family Provider Family Medicine; PCP Family Medicine; Referring Provider Family Medicine; Visit Provider Physician Assistant
DX: L03.313 Cellulitis of chest wall (principal); T81.31XD Disruption of external operation (surgical) wound, not elsewhere classified, subsequent encounter; L59.8 Other specified disorders of the skin and subcutaneous tissue related to radiation; B95.62 Methicillin resistant Staphylococcus aureus infection as the cause of diseases classified elsewhere
CPT/HCPCS: 99183; G0277

== ENCOUNTER → 2022-11-05 11:37 | Outpatient (CLI) | payer MEDICARE, OTHER, SELFPAY ==
[2022-08-16 11:07] VITALS: BMI 30.5
== END ==
PROVIDERS: Family Provider Family Medicine; PCP Family Medicine; Referring Provider Family Medicine; Visit Provider Surgery
DX: L03.313 Cellulitis of chest wall (principal); T81.31XD Disruption of external operation (surgical) wound, not elsewhere classified, subsequent encounter; B95.62 Methicillin resistant Staphylococcus aureus infection as the cause of diseases classified elsewhere; L59.8 Other specified disorders of the skin and subcutaneous tissue related to radiation
CPT/HCPCS: 99183; G0277

== ENCOUNTER → 2022-11-06 10:40 | Outpatient (CLI) | payer MEDICARE, OTHER, SELFPAY ==
[2022-08-16 11:07] VITALS: BMI 30.5
== END ==
PROVIDERS: Family Provider Family Medicine; PCP Family Medicine; Referring Provider Surgery; Visit Provider Surgery
DX: L59.8 Other specified disorders of the skin and subcutaneous tissue related to radiation (principal); S21.002A Unspecified open wound of left breast, initial encounter; R60.0 Localized edema; L53.9 Erythematous condition, unspecified
CPT/HCPCS: 15271; 99183; 99213; G0277; Q4196

== ENCOUNTER → 2022-11-07 11:53 | Outpatient (CLI) | payer MEDICARE, OTHER, SELFPAY ==
[2022-08-16 11:07] VITALS: BMI 30.5
== END ==
PROVIDERS: Family Provider Family Medicine; PCP Family Medicine; Referring Provider Family Medicine; Visit Provider Surgery
DX: B95.62 Methicillin resistant Staphylococcus aureus infection as the cause of diseases classified elsewhere (principal); L03.313 Cellulitis of chest wall; T81.31XD Disruption of external operation (surgical) wound, not elsewhere classified, subsequent encounter; L59.8 Other specified disorders of the skin and subcutaneous tissue related to radiation
CPT/HCPCS: 99183; G0277

== ENCOUNTER → 2022-11-08 13:16 | Outpatient (CLI) | payer MEDICARE, OTHER, SELFPAY ==
[2022-08-16 11:07] VITALS: BMI 30.5
== END ==
PROVIDERS: Family Provider Family Medicine; PCP Family Medicine; Referring Provider Surgery; Visit Provider Surgery
DX: B95.62 Methicillin resistant Staphylococcus aureus infection as the cause of diseases classified elsewhere (principal); L03.313 Cellulitis of chest wall; T81.31XD Disruption of external operation (surgical) wound, not elsewhere classified, subsequent encounter; L59.8 Other specified disorders of the skin and subcutaneous tissue related to radiation
CPT/HCPCS: 99183; G0277

== ENCOUNTER → 2022-11-09 08:51 | Outpatient (CLI) | payer MEDICARE, OTHER, SELFPAY ==
[2022-08-16 11:07] VITALS: BMI 30.5
== END ==
PROVIDERS: Family Provider Family Medicine; PCP Family Medicine; Referring Provider Surgery; Visit Provider Physician Assistant
DX: B95.62 Methicillin resistant Staphylococcus aureus infection as the cause of diseases classified elsewhere (principal); L03.313 Cellulitis of chest wall; T81.31XD Disruption of external operation (surgical) wound, not elsewhere classified, subsequent encounter; L59.8 Other specified disorders of the skin and subcutaneous tissue related to radiation
CPT/HCPCS: 99183; G0277

== ENCOUNTER → 2022-11-13 09:45 | Outpatient (CLI) | payer MEDICARE, OTHER, SELFPAY ==
[2022-08-16 11:07] VITALS: BMI 30.5
== END ==
PROVIDERS: Family Provider Family Medicine; PCP Family Medicine; Referring Provider Surgery; Visit Provider Surgery
DX: L03.313 Cellulitis of chest wall (principal); T81.31XD Disruption of external operation (surgical) wound, not elsewhere classified, subsequent encounter; L59.8 Other specified disorders of the skin and subcutaneous tissue related to radiation; B95.62 Methicillin resistant Staphylococcus aureus infection as the cause of diseases classified elsewhere
CPT/HCPCS: 11042; 99183; 99212; 99213; G0277

== ENCOUNTER → 2022-11-14 11:20 | Outpatient (CLI) | payer MEDICARE, OTHER, SELFPAY ==
[2022-08-16 11:07] VITALS: BMI 30.5
== END ==
PROVIDERS: Family Provider Family Medicine; PCP Family Medicine; Referring Provider Surgery; Visit Provider Surgery
DX: B95.62 Methicillin resistant Staphylococcus aureus infection as the cause of diseases classified elsewhere (principal); L03.313 Cellulitis of chest wall; T81.31XD Disruption of external operation (surgical) wound, not elsewhere classified, subsequent encounter; L59.8 Other specified disorders of the skin and subcutaneous tissue related to radiation
CPT/HCPCS: 99183; G0277

== ENCOUNTER → 2022-11-15 12:32 | Outpatient (CLI) | payer MEDICARE, OTHER, SELFPAY ==
[2022-08-16 11:07] VITALS: BMI 30.5
== END ==
PROVIDERS: Family Provider Family Medicine; PCP Family Medicine; Referring Provider Surgery; Visit Provider Surgery
DX: L03.313 Cellulitis of chest wall (principal); B95.62 Methicillin resistant Staphylococcus aureus infection as the cause of diseases classified elsewhere; T81.31XD Disruption of external operation (surgical) wound, not elsewhere classified, subsequent encounter; L59.8 Other specified disorders of the skin and subcutaneous tissue related to radiation
CPT/HCPCS: 99183; G0277

== ENCOUNTER → 2022-11-16 09:29 | Outpatient (CLI) | payer MEDICARE, OTHER, SELFPAY ==
[2022-08-16 11:07] VITALS: BMI 30.5
== END ==
PROVIDERS: Family Provider Family Medicine; PCP Family Medicine; Referring Provider Surgery; Visit Provider Physician Assistant
DX: L03.313 Cellulitis of chest wall (principal); B95.62 Methicillin resistant Staphylococcus aureus infection as the cause of diseases classified elsewhere; T81.31XD Disruption of external operation (surgical) wound, not elsewhere classified, subsequent encounter; L59.8 Other specified disorders of the skin and subcutaneous tissue related to radiation
CPT/HCPCS: 99183; G0277

== ENCOUNTER → 2022-11-19 13:01 | Outpatient (CLI) | payer MEDICARE, OTHER, SELFPAY ==
[2022-08-16 11:07] VITALS: BMI 30.5
--- NOTE | 2022-11-19 16:25 | PC.NURSE ---
Move f/u: request made to schedulers to move appt to next available and call patient. Patient had reported that a suspicious lymph node was found on the MRI doen at [facility].
== END ==
PROVIDERS: Family Provider Family Medicine; PCP Family Medicine; Referring Provider Family Medicine; Visit Provider Surgery
DX: L03.313 Cellulitis of chest wall (principal); B95.62 Methicillin resistant Staphylococcus aureus infection as the cause of diseases classified elsewhere; T81.31XD Disruption of external operation (surgical) wound, not elsewhere classified, subsequent encounter; L59.8 Other specified disorders of the skin and subcutaneous tissue related to radiation
CPT/HCPCS: 99183; G0277

== ENCOUNTER → 2022-11-20 09:16 | Outpatient (CLI) | payer MEDICARE, OTHER, SELFPAY ==
[2022-08-16 11:07] VITALS: BMI 30.5
== END ==
PROVIDERS: Family Provider Family Medicine; PCP Family Medicine; Referring Provider Surgery; Visit Provider Surgery
DX: L03.313 Cellulitis of chest wall (principal); B95.62 Methicillin resistant Staphylococcus aureus infection as the cause of diseases classified elsewhere; T81.31XD Disruption of external operation (surgical) wound, not elsewhere classified, subsequent encounter; L59.8 Other specified disorders of the skin and subcutaneous tissue related to radiation; L72.3 Sebaceous cyst; S21.002A Unspecified open wound of left breast, initial encounter; L02.212 Cutaneous abscess of back [any part, except buttock and flank]; R60.0 Localized edema; L53.9 Erythematous condition, unspecified
CPT/HCPCS: 10060; 11042; 97605; 99183; 99213; G0277

== ENCOUNTER → 2022-11-21 12:25 | Outpatient (CLI) | payer MEDICARE, OTHER, SELFPAY ==
[2022-08-16 11:07] VITALS: BMI 30.5
== END ==
PROVIDERS: Family Provider Family Medicine; PCP Family Medicine; Referring Provider Surgery; Visit Provider Surgery
DX: L03.313 Cellulitis of chest wall (principal); B95.62 Methicillin resistant Staphylococcus aureus infection as the cause of diseases classified elsewhere; T81.31XD Disruption of external operation (surgical) wound, not elsewhere classified, subsequent encounter; L59.8 Other specified disorders of the skin and subcutaneous tissue related to radiation; L72.3 Sebaceous cyst
CPT/HCPCS: 99183; G0277

== ENCOUNTER → 2022-11-22 11:23 | Outpatient (CLI) | payer MEDICARE, OTHER, SELFPAY ==
[2022-08-16 11:07] VITALS: BMI 30.5
== END ==
PROVIDERS: Family Provider Family Medicine; PCP Family Medicine; Referring Provider Surgery; Visit Provider Surgery
DX: L03.313 Cellulitis of chest wall (principal); B95.62 Methicillin resistant Staphylococcus aureus infection as the cause of diseases classified elsewhere; T81.31XD Disruption of external operation (surgical) wound, not elsewhere classified, subsequent encounter; L59.8 Other specified disorders of the skin and subcutaneous tissue related to radiation; L72.3 Sebaceous cyst
CPT/HCPCS: 99183; G0277

== ENCOUNTER → 2022-11-23 12:37 | Outpatient (CLI) | payer MEDICARE, OTHER, SELFPAY ==
[2022-08-16 11:07] VITALS: BMI 30.5
== END ==
PROVIDERS: Family Provider Family Medicine; PCP Family Medicine; Referring Provider Surgery; Visit Provider Surgery
DX: S21.002A Unspecified open wound of left breast, initial encounter (principal); L59.8 Other specified disorders of the skin and subcutaneous tissue related to radiation; B95.62 Methicillin resistant Staphylococcus aureus infection as the cause of diseases classified elsewhere; L03.313 Cellulitis of chest wall
CPT/HCPCS: 11042; 97605

== ENCOUNTER → 2022-11-26 13:17 | Outpatient (CLI) | payer MEDICARE, OTHER, SELFPAY ==
[2022-08-16 11:07] VITALS: BMI 30.5
== END ==
PROVIDERS: Family Provider Family Medicine; PCP Family Medicine; Referring Provider Family Medicine; Visit Provider Surgery
DX: L03.313 Cellulitis of chest wall (principal); B95.62 Methicillin resistant Staphylococcus aureus infection as the cause of diseases classified elsewhere; T81.31XD Disruption of external operation (surgical) wound, not elsewhere classified, subsequent encounter; L59.8 Other specified disorders of the skin and subcutaneous tissue related to radiation; L72.3 Sebaceous cyst
CPT/HCPCS: 99183; G0277

== ENCOUNTER → 2022-11-27 11:33 | Outpatient (CLI) | payer MEDICARE, OTHER, SELFPAY ==
[2022-08-16 11:07] VITALS: BMI 30.5
== END ==
PROVIDERS: Family Provider Family Medicine; PCP Family Medicine; Referring Provider Family Medicine; Visit Provider Surgery
DX: L03.313 Cellulitis of chest wall (principal); B95.62 Methicillin resistant Staphylococcus aureus infection as the cause of diseases classified elsewhere; T81.31XD Disruption of external operation (surgical) wound, not elsewhere classified, subsequent encounter; L59.8 Other specified disorders of the skin and subcutaneous tissue related to radiation; L72.3 Sebaceous cyst; S21.002A Unspecified open wound of left breast, initial encounter; S21.201A Unspecified open wound of right back wall of thorax without penetration into thoracic cavity, initial encounter
CPT/HCPCS: 11042; 97605; 99183; G0277

== ENCOUNTER → 2022-11-28 11:53 | Outpatient (CLI) | payer MEDICARE, OTHER, SELFPAY ==
[2022-08-16 11:07] VITALS: BMI 30.5
== END ==
PROVIDERS: Family Provider Family Medicine; PCP Family Medicine; Referring Provider Surgery; Visit Provider Surgery
DX: L03.313 Cellulitis of chest wall (principal); B95.62 Methicillin resistant Staphylococcus aureus infection as the cause of diseases classified elsewhere; T81.31XD Disruption of external operation (surgical) wound, not elsewhere classified, subsequent encounter; L59.8 Other specified disorders of the skin and subcutaneous tissue related to radiation; L72.3 Sebaceous cyst
CPT/HCPCS: 99183; G0277

== ENCOUNTER → 2022-11-29 12:36 | Outpatient (CLI) | payer MEDICARE, OTHER, SELFPAY ==
[2022-08-16 11:07] VITALS: BMI 30.5
== END ==
PROVIDERS: Family Provider Family Medicine; PCP Family Medicine; Referring Provider Family Medicine; Visit Provider Surgery
DX: L03.313 Cellulitis of chest wall (principal); T81.31XD Disruption of external operation (surgical) wound, not elsewhere classified, subsequent encounter; L59.8 Other specified disorders of the skin and subcutaneous tissue related to radiation; B95.62 Methicillin resistant Staphylococcus aureus infection as the cause of diseases classified elsewhere; L72.3 Sebaceous cyst
CPT/HCPCS: 99183; G0277

== ENCOUNTER → 2022-11-30 11:13 | Outpatient (CLI) | payer MEDICARE, OTHER, SELFPAY ==
[2022-08-16 11:07] VITALS: BMI 30.5
== END ==
PROVIDERS: Family Provider Family Medicine; PCP Family Medicine; Referring Provider Surgery; Visit Provider Physician Assistant
DX: L59.8 Other specified disorders of the skin and subcutaneous tissue related to radiation (principal); S21.002A Unspecified open wound of left breast, initial encounter; R60.0 Localized edema; L53.9 Erythematous condition, unspecified; L02.212 Cutaneous abscess of back [any part, except buttock and flank]; M54.59 Other low back pain
CPT/HCPCS: 97605; 99183; G0277

== ENCOUNTER → 2022-12-05 11:26 | Outpatient (CLI) | payer MEDICARE, OTHER, SELFPAY ==
[2022-08-16 11:07] VITALS: BMI 30.5
== END ==
PROVIDERS: Family Provider Family Medicine; PCP Family Medicine; Referring Provider Surgery; Visit Provider Surgery
DX: L59.8 Other specified disorders of the skin and subcutaneous tissue related to radiation (principal); S21.102A Unspecified open wound of left front wall of thorax without penetration into thoracic cavity, initial encounter; S21.201A Unspecified open wound of right back wall of thorax without penetration into thoracic cavity, initial encounter; L72.3 Sebaceous cyst; Z85.3 Personal history of malignant neoplasm of breast; Z92.3 Personal history of irradiation; Z90.12 Acquired absence of left breast and nipple; Z79.2 Long term (current) use of antibiotics
CPT/HCPCS: 11042; 97605; 99183; 99212; G0277

== ENCOUNTER → 2022-12-10 10:24 | Outpatient (CLI) | payer MEDICARE, OTHER, SELFPAY ==
[2022-08-16 11:07] VITALS: BMI 30.5
== END ==
PROVIDERS: Family Provider Family Medicine; PCP Family Medicine; Referring Provider Surgery; Visit Provider Surgery
DX: S21.002A Unspecified open wound of left breast, initial encounter (principal); B95.62 Methicillin resistant Staphylococcus aureus infection as the cause of diseases classified elsewhere; T81.31XA Disruption of external operation (surgical) wound, not elsewhere classified, initial encounter; L03.313 Cellulitis of chest wall; L59.8 Other specified disorders of the skin and subcutaneous tissue related to radiation; L72.3 Sebaceous cyst
CPT/HCPCS: 11042; 97597; 97605

== ENCOUNTER → 2022-12-14 13:49 | Outpatient (CLI) | payer MEDICARE, OTHER, SELFPAY ==
[2022-08-16 11:07] VITALS: BMI 30.5
== END ==
PROVIDERS: Family Provider Family Medicine; PCP Family Medicine; Referring Provider Family Medicine; Visit Provider Physician Assistant
DX: L59.8 Other specified disorders of the skin and subcutaneous tissue related to radiation (principal); L53.9 Erythematous condition, unspecified; S21.002A Unspecified open wound of left breast, initial encounter; L02.212 Cutaneous abscess of back [any part, except buttock and flank]; R60.0 Localized edema
CPT/HCPCS: 97605

== ENCOUNTER → 2022-12-18 10:52 | Outpatient (CLI) | payer MEDICARE, OTHER, SELFPAY ==
[2022-08-16 11:07] VITALS: BMI 30.5
== END ==
PROVIDERS: Family Provider Family Medicine; PCP Family Medicine; Referring Provider Surgery; Visit Provider Surgery
DX: S21.002A Unspecified open wound of left breast, initial encounter (principal); L59.8 Other specified disorders of the skin and subcutaneous tissue related to radiation; L02.212 Cutaneous abscess of back [any part, except buttock and flank]; R60.0 Localized edema; L53.9 Erythematous condition, unspecified
CPT/HCPCS: 11042; 97605

== ENCOUNTER → 2022-12-21 11:17 | Outpatient (CLI) | payer MEDICARE, OTHER, SELFPAY ==
[2022-08-16 11:07] VITALS: BMI 30.5
== END ==
PROVIDERS: Family Provider Family Medicine; PCP Family Medicine; Referring Provider Family Medicine; Visit Provider Physician Assistant
DX: S21.002A Unspecified open wound of left breast, initial encounter (principal); L59.8 Other specified disorders of the skin and subcutaneous tissue related to radiation; R60.0 Localized edema; L53.9 Erythematous condition, unspecified
CPT/HCPCS: 97605

== ENCOUNTER → 2022-12-25 13:00 | Outpatient (CLI) | payer MEDICARE, OTHER, SELFPAY ==
[2022-08-16 11:07] VITALS: BMI 30.5
== END ==
PROVIDERS: Family Provider Family Medicine; PCP Family Medicine; Referring Provider Surgery; Visit Provider Surgery
DX: S21.002A Unspecified open wound of left breast, initial encounter (principal); L59.8 Other specified disorders of the skin and subcutaneous tissue related to radiation; R60.0 Localized edema
CPT/HCPCS: 97605

== ENCOUNTER → 2022-12-28 13:00 | Outpatient (CLI) | payer MEDICARE, OTHER, SELFPAY ==
[2022-08-16 11:07] VITALS: BMI 30.5
== END ==
PROVIDERS: Family Provider Family Medicine; PCP Family Medicine; Referring Provider Surgery; Visit Provider Physician Assistant
DX: L59.8 Other specified disorders of the skin and subcutaneous tissue related to radiation (principal); S21.002A Unspecified open wound of left breast, initial encounter
CPT/HCPCS: 97605; 99213

== ENCOUNTER → 2023-01-01 14:34 | Outpatient (CLI) | payer MEDICARE, OTHER, SELFPAY ==
[2022-08-16 11:07] VITALS: BMI 30.5
== END ==
PROVIDERS: Family Provider Family Medicine; PCP Family Medicine; Referring Provider Surgery; Visit Provider Surgery
DX: L59.8 Other specified disorders of the skin and subcutaneous tissue related to radiation (principal); S21.002A Unspecified open wound of left breast, initial encounter; R60.0 Localized edema
CPT/HCPCS: 11042; 97605; 99212; 99213

== ENCOUNTER → 2023-01-04 11:19 | Outpatient (CLI) | payer MEDICARE, OTHER, SELFPAY ==
[2022-08-16 11:07] VITALS: BMI 30.5
== END ==
PROVIDERS: Family Provider Family Medicine; PCP Family Medicine; Referring Provider Surgery; Visit Provider Surgery
DX: L59.8 Other specified disorders of the skin and subcutaneous tissue related to radiation (principal); S21.002A Unspecified open wound of left breast, initial encounter; R60.0 Localized edema
CPT/HCPCS: 97605

== ENCOUNTER → 2023-01-08 11:18 | Outpatient (CLI) | payer MEDICARE, OTHER, SELFPAY ==
[2022-08-16 11:07] VITALS: BMI 30.5
== END ==
PROVIDERS: Family Provider Family Medicine; PCP Family Medicine; Referring Provider Surgery; Visit Provider Surgery
DX: L59.8 Other specified disorders of the skin and subcutaneous tissue related to radiation (principal); S21.002A Unspecified open wound of left breast, initial encounter
CPT/HCPCS: 11042; 97605

== ENCOUNTER → 2023-01-11 10:33 | Outpatient (CLI) | payer MEDICARE, OTHER, SELFPAY ==
[2022-08-16 11:07] VITALS: BMI 30.5
== END ==
PROVIDERS: Family Provider Family Medicine; PCP Family Medicine; Referring Provider Surgery; Visit Provider Physician Assistant
DX: S21.002A Unspecified open wound of left breast, initial encounter (principal); L59.8 Other specified disorders of the skin and subcutaneous tissue related to radiation; R60.0 Localized edema
CPT/HCPCS: 97605

== ENCOUNTER → 2023-01-14 10:54 | Outpatient (CLI) | payer MEDICARE, OTHER, SELFPAY ==
[2022-08-16 11:07] VITALS: BMI 30.5
== END ==
PROVIDERS: Family Provider Family Medicine; PCP Family Medicine; Referring Provider Family Medicine; Visit Provider Surgery
DX: S21.002A Unspecified open wound of left breast, initial encounter (principal); L59.8 Other specified disorders of the skin and subcutaneous tissue related to radiation; Z85.3 Personal history of malignant neoplasm of breast
CPT/HCPCS: 11042; 97605

== ENCOUNTER → 2023-01-18 10:14 | Outpatient (CLI) | payer MEDICARE, OTHER, SELFPAY ==
[2022-08-16 11:07] VITALS: BMI 30.5
== END ==
PROVIDERS: Family Provider Family Medicine; PCP Family Medicine; Referring Provider Family Medicine; Visit Provider Physician Assistant
DX: S21.002A Unspecified open wound of left breast, initial encounter (principal); L59.8 Other specified disorders of the skin and subcutaneous tissue related to radiation
CPT/HCPCS: 99213

== ENCOUNTER → 2023-01-22 10:05 | Outpatient (CLI) | payer MEDICARE, OTHER, SELFPAY ==
[2022-08-16 11:07] VITALS: BMI 30.5
== END ==
PROVIDERS: Family Provider Family Medicine; PCP Family Medicine; Referring Provider Surgery; Visit Provider Surgery
DX: L59.8 Other specified disorders of the skin and subcutaneous tissue related to radiation (principal); S21.002A Unspecified open wound of left breast, initial encounter; T81.89XA Other complications of procedures, not elsewhere classified, initial encounter; R60.0 Localized edema; L03.313 Cellulitis of chest wall; L72.3 Sebaceous cyst
CPT/HCPCS: 11042

== ENCOUNTER → 2023-01-29 10:12 | Outpatient (CLI) | payer MEDICARE, OTHER, SELFPAY ==
[2022-08-16 11:07] VITALS: BMI 30.5
== END ==
PROVIDERS: Family Provider Family Medicine; PCP Family Medicine; Referring Provider Surgery; Visit Provider Surgery
DX: L59.8 Other specified disorders of the skin and subcutaneous tissue related to radiation (principal); S21.002A Unspecified open wound of left breast, initial encounter; L03.313 Cellulitis of chest wall; B95.62 Methicillin resistant Staphylococcus aureus infection as the cause of diseases classified elsewhere; R60.0 Localized edema
CPT/HCPCS: 11042

== ENCOUNTER → 2023-02-05 10:44 | Outpatient (CLI) | payer MEDICARE, OTHER, SELFPAY ==
[2022-08-16 11:07] VITALS: BMI 30.5
== END ==
PROVIDERS: Family Provider Family Medicine; PCP Family Medicine; Referring Provider Surgery; Visit Provider Surgery
DX: L59.8 Other specified disorders of the skin and subcutaneous tissue related to radiation (principal); T81.89XA Other complications of procedures, not elsewhere classified, initial encounter; S21.002A Unspecified open wound of left breast, initial encounter
CPT/HCPCS: 11042; 99213

== ENCOUNTER → 2023-02-11 10:17 | Outpatient (CLI) | payer MEDICARE, OTHER, SELFPAY ==
[2022-08-16 11:07] VITALS: BMI 30.5
== END ==
PROVIDERS: Family Provider Family Medicine; PCP Family Medicine; Referring Provider Surgery; Visit Provider Surgery
DX: S21.002A Unspecified open wound of left breast, initial encounter (principal); L59.8 Other specified disorders of the skin and subcutaneous tissue related to radiation; B95.62 Methicillin resistant Staphylococcus aureus infection as the cause of diseases classified elsewhere; L72.3 Sebaceous cyst; C50.912 Malignant neoplasm of unspecified site of left female breast
CPT/HCPCS: 11042; 87070; 87075; 87077; 87186; 87205; 99213

== ENCOUNTER → 2023-02-18 10:27 | Outpatient (CLI) | payer MEDICARE, OTHER, SELFPAY ==
[2022-08-16 11:07] VITALS: BMI 30.5
== END ==
PROVIDERS: Family Provider Family Medicine; PCP Family Medicine; Referring Provider Surgery; Visit Provider Surgery
DX: L59.8 Other specified disorders of the skin and subcutaneous tissue related to radiation (principal); S21.002A Unspecified open wound of left breast, initial encounter; R60.0 Localized edema
CPT/HCPCS: 11042

== ENCOUNTER → 2023-02-25 13:58 | Outpatient (CLI) | payer MEDICARE, OTHER, SELFPAY ==
[2022-08-16 11:07] VITALS: BMI 30.5
== END ==
PROVIDERS: Family Provider Family Medicine; PCP Family Medicine; Referring Provider Family Medicine; Visit Provider Surgery
DX: L59.8 Other specified disorders of the skin and subcutaneous tissue related to radiation (principal); S21.002A Unspecified open wound of left breast, initial encounter; R60.0 Localized edema
CPT/HCPCS: 11042

== ENCOUNTER → 2023-03-04 11:28 | Outpatient (CLI) | payer MEDICARE, OTHER, SELFPAY ==
[2022-08-16 11:07] VITALS: BMI 30.5
== END ==
PROVIDERS: Family Provider Family Medicine; PCP Internal Medicine; Referring Provider Surgery; Visit Provider Surgery
DX: L59.8 Other specified disorders of the skin and subcutaneous tissue related to radiation (principal); S21.002A Unspecified open wound of left breast, initial encounter; B95.62 Methicillin resistant Staphylococcus aureus infection as the cause of diseases classified elsewhere; L03.313 Cellulitis of chest wall; L72.3 Sebaceous cyst
CPT/HCPCS: 11042; 87070; 87075; 87077; 87186; 87205; 99213

== ENCOUNTER → 2023-03-11 11:22 | Outpatient (CLI) | payer MEDICARE, OTHER, SELFPAY ==
[2022-08-16 11:07] VITALS: BMI 30.5
== END ==
PROVIDERS: Family Provider Family Medicine; PCP Internal Medicine; Referring Provider Surgery; Visit Provider Surgery
DX: L59.8 Other specified disorders of the skin and subcutaneous tissue related to radiation (principal); S21.002A Unspecified open wound of left breast, initial encounter; R60.0 Localized edema
CPT/HCPCS: 11042

== ENCOUNTER → 2023-03-18 10:11 | Outpatient (CLI) | payer MEDICARE, OTHER, SELFPAY ==
[2022-08-16 11:07] VITALS: BMI 30.5
== END ==
PROVIDERS: Family Provider Family Medicine; PCP Internal Medicine; Referring Provider Surgery; Visit Provider Surgery
DX: L59.8 Other specified disorders of the skin and subcutaneous tissue related to radiation (principal); B95.62 Methicillin resistant Staphylococcus aureus infection as the cause of diseases classified elsewhere; S21.002A Unspecified open wound of left breast, initial encounter; L03.313 Cellulitis of chest wall; R60.0 Localized edema
CPT/HCPCS: 11042

== ENCOUNTER → 2023-03-25 11:07 | Outpatient (CLI) | payer MEDICARE, OTHER, SELFPAY ==
[2022-08-16 11:07] VITALS: BMI 30.5
== END ==
PROVIDERS: Family Provider Family Medicine; PCP Internal Medicine; Referring Provider Surgery; Visit Provider Surgery
DX: L59.8 Other specified disorders of the skin and subcutaneous tissue related to radiation (principal); S21.002A Unspecified open wound of left breast, initial encounter; R60.0 Localized edema
CPT/HCPCS: 11042

== ENCOUNTER 2023-05-20 12:03 | Emergency (ER) | payer MEDICARE, OTHER, SELFPAY ==
[2022-08-16 11:07] VITALS: BMI 30.5
[2023-05-20] VITALS (27 sets, daily range): BP systolic 130–238; BP diastolic 68–102; PULSE 67–78; RESP 14–25; TEMP 36.4–37; O2SAT 92–99; BMI 32.5
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
--- NOTE | 2023-05-20 12:09 | ED_ITS ---
HPI - Fall General Chief Complaint: Trauma Stated Complaint: Fall on Thinners Time Seen by Provider: 05/20/23 12:07 History of Present Illness HPI Narrative: Patient comes to the ED today by ambulance after a ground level fall at home. She slipped and fell with her will socks on a tile floor and went hit her head against the edge of a tiled bathroom wall. No loss of consciousness. No other injury or illness today. She has chronic wound infection/delayed healing with a wound VAC. No new illness or injury today. She is had a couple of slip and falls at home just sliding out of a chair but no other symptoms or injuries. Related Data Home Medications Medication Instructions Recorded Confirmed insulin glargine 100 unit/mL (3 14 unit SUBCUT BEDTIME 06/14/20 02/27/23 mL) subcutaneous pen (Basaglar KwikPen U-100 Insulin) cholecalciferol (vitamin D3) 125 5,000 unit PO QDAY #0 caps 09/29/20 02/27/23 mcg (5,000 unit) capsule coenzyme Q10 100 mg capsule 200 mg PO DAILY 09/29/20 02/27/23 (CoQ-10) chlorthalidone 25 mg tablet 12.5 mg PO DAILY 07/03/21 02/27/23 vitamins A,C,J-tpkk-tsaxvt 4,296 1 cap PO BID 07/26/21 02/27/23 mcg-226 mg-90 mg capsule (PreserVision AREDS) insulin aspart U-100 100 unit/mL 5 - 6 unit SUBCUT TIDWM 08/05/21 02/27/23 (3 mL) subcutaneous pen (Novolog FlexPen U-100 Insulin aspart) amlodipine 10 mg tablet 5 mg PO DAILY 02/27/23 02/27/23 atorvastatin 10 mg tablet 10 mg PO DAILY 02/27/23 02/27/23 carvedilol 25 mg tablet 25 mg PO BID 02/27/23 02/27/23 cephalexin 500 mg capsule 500 mg PO BID 02/27/23 02/27/23 gabapentin 300 mg capsule 900 mg PO BEDTIME 02/27/23 02/27/23 glimepiride 4 mg tablet 8 mg PO QAM 02/27/23 02/27/23 losartan 100 mg tablet 100 mg PO DAILY 02/27/23 02/27/23 sitagliptin phosphate 50 mg tablet 50 mg PO DAILY 02/27/23 02/27/23 (Januvia) Previous Rx's Medication Instructions Recorded pen needle, diabetic 31 gauge x #100 ea 03/03/1810/16 (1st Tier Unifine Pentips) blood sugar diagnostic (Blood #200 ea 04/30/22 Glucose Test strips) terconazole 0.4 % vaginal cream 1 appful vaginal BEDTIME #45 grams 08/01/22 escitalopram oxalate 10 mg tablet 10 mg PO QDAY #90 tabs 08/30/22 (Lexapro) oxycodone 5 mg tablet 5 mg PO BID PRN pain #30 tabs 10/23/22 Disability Placard #1 ea 12/31/22 zolpidem 10 mg tablet 5 - 10 mg (0.5 - 1 x 10 mg) PO 03/04/23 BEDTIME PRN insomnia #60 tabs ondansetron 4 mg disintegrating 4 mg PO Q8H PRN nausea and 04/30/23 tablet vomiting #14 tabs Allergies Allergy/AdvReac Type Severity Reaction Status Date / Time Anesthetics - Amide Type - Allergy Severe PROJECTILE Verified 02/27/23 08:51 Select A VOMITING [Anesthetics - Amide Type] Anesthetics - Keke Type- Allergy Severe PROJECTILE Verified 02/27/23 08:51 Parabens VOMITING [Anesthetics - Keke Type] ibuprofen Allergy Intermediate gastic Verified 02/27/23 08:51 bleed Patient History Medical History (Updated 05/20/23 @ 13:18 by Moisés Feliciano MD) History of colonic polyps Depression, major, recurrent Cerebrovascular disease Anemia in CKD (chronic kidney disease) Stage 3b chronic kidney disease (CKD) Insulin use (long-term) in type 2 diabetes Type 2 diabetes mellitus with stage 3b chronic kidney disease Candidiasis Pneumonia ROSCOE (obstructive sleep apnea) Unilateral primary osteoarthritis, left knee Obesity (BMI 30-39.9) Acute upper GI bleed Impingement syndrome of right shoulder Sternal fracture (2014) Hyperparathyroidism (2013) History of recurrent ear infection Vertigo (2011) Shoulder pain (2014) Lumbar spine pain GERD (gastroesophageal reflux disease) Hyperlipidemia (~1997) Urinary incontinence (2012) Cataract (2010) Chicken pox Measles Hayfever (~1959) Anxiety Fractures Surgical History Status post left knee replacement Hx of bilateral cataract extraction H/O lumpectomy H/O mastectomy History of lumbar spinal fusion Anesthesia complication History of fusion of cervical spine (2011) History of lumbar spinal fusion (2009) History of knee replacement (2006) Family History Father Hypertension High cholesterol Pneumonia Mother Hypertension Mental health problem Stroke History of hip surgery Grandfather Heart disease Hypertension High cholesterol Grandmother Hypertension High cholesterol Social History marital status: details: (Stu Barth), 1 son, 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 HEAD: Atraumatic. Normocephalic. EYES: Sclera are clear without icterus. Extraocular movements are full. ENT: No rhinorrhea. Oropharynx is moist. Mouth exam is benign. NECK: Supple. Full range of motion. CARDIOVASCULAR: Normal rate and rhythm without murmur gallop or rub. RESPIRATORY: Clear to auscultation. Breath sounds equal bilaterally. No wheezes, rales, or rhonchi. GASTROINTESTINAL: Abdomen soft, non-tender, nondistended. EXTREMITIES: No edema, full range of motion. No obvious trauma. Good range of motion of upper and lower extremities throughout. No cervical spine tenderness midline. Good range of motion. BACK: Normal inspection, no CVA tenderness. NEURO: Nonfocal examination, normal speech SKIN: Wound VAC on midabdomen PSYCH: Normally oriented. Normal range of affect. Appropriate behavior Initial Vital Signs Initial Vital Signs: Vital Signs Temperature 97.8 F 05/20/23 12:07 Pulse Rate 67 05/20/23 12:07 Respiratory Rate 14 05/20/23 12:07 Blood Pressure 196/84 H 05/20/23 12:07 Pulse Oximetry 95 05/20/23 12:07 Oxygen Delivery Method Room Air 05/20/23 12:07 Course Orders Ordered: ED Orders 05/20/23 12:08 CT head/brain wo con Stat CBC Auto Diff [Complete Blood Count AUTO DIFF] Stat UA dip and micro [Urinalysis and Microscopic] Stat 05/20/23 12:12 EKG-12 Lead Stat 05/20/23 12:29 CMP [Comprehensive Metabolic Panel] Stat Vital Signs Vital signs: Vital Signs - 8 hr 05/20/23 12:07 Temperature 97.8 F Pulse Rate 67 Respiratory Rate 14 Blood Pressure 196/84 H Pulse Oximetry 95 Oxygen Delivery Method Room Air MDM - Fall Lab Data 05/20/23 12:29 05/20/23 12:29 Labs: Lab Results 05/20/23 05/20/23 Range/Units 12: 12:29 WBC 10.7 (4.5-11.0) X10^3/uL RBC 3.12 L (4.0-5.2) X10^6/uL Hgb 8.7 L (12.0-16.0) g/dL Hct 26.5 L (36-46) % MCV 84.9 (80-100) fL MCH 27.9 (26-34) PG MCHC 32.9 (30-36) % RDW 19.6 H (11.6-14.8) % Plt Count 418 H (150-400) X10^3/uL Neut % (Auto) 80.9 H (50-75) % Lymph % (Auto) 8.1 L (25-40) % Piute % (Auto) 7.6 (3-14) % Eos % (Auto) 2.8 (2-4) % Baso % (Auto) 0.6 (0-2) % Neut # (Auto) 8600 H (5290-5400) /uL Lymph # (Auto) 900 L (4578-3166) /uL Piute # (Auto) 800 (0-900) /uL Eos # (Auto) 300 (0-450) /uL Baso # (Auto) 100 (0-100) /uL Sodium 138 (137-145) mmol/L Potassium 3.9 (3.4-5.1) mmol/L Chloride 103 (98-107) mmol/L Carbon Dioxide 28 (22-32) mmol/L BUN 23 H (7-17) mg/dL Creatinine 1.30 H (0.52-1.04) mg/dL Estimated GFR 42 L (>60) mL/min BUN/Creatinine Ratio 17.7 (6-22) Glucose 119 H (80-110) mg/dL Calcium 9.2 (8.4-10.2) mg/dL Total Bilirubin 0.6 (0.2-1.3) mg/dL AST 32 (14-36) IU/L ALT 20 (<35) IU/L Alkaline Phosphatase 115 (38-126) U/L Total Protein 6.8 (6.3-8.2) g/dL Albumin 3.3 L (3.5-5.0) g/dL Globulin 3.5 (1.7-4.1) g/dL Albumin/Globulin Ratio 0.9 L (1.0-2.8) Urine Color Yellow Urine Appearance Clear Urine pH 8.0 (4.5-8.0) Ur Specific [place] 1.010 (1.000-1.035) Urine Protein Negative (Negative) Urine Glucose (UA) Negative (Negative) g/dL Urine Ketones Negative (NEGATIVE) Urine Occult Blood Negative (Negative) Urine Nitrate Negative (Negative) Urine Bilirubin Negative (NEGATIVE) Urine Urobilinogen 0.2 (0.2) E.U./dL Ur Leukocyte Esterase Negative (NEGATIVE) Urine RBC None seen (0-5/HPF) Urine WBC None seen (0-5/HPF) Ur Squamous Epith Cells None seen (0-5/HPF) Urine Bacteria None seen (None) Ur Culture Indicated? Cult not indicated MDM Narrative Medical decision making narrative: Low risk fall but taking Eliquis. Will proceed with CT head imaging. Will also proceed with the ECG CBC CMP and urinalysis to look for occult cause for falling. 1314 Workup is reassuring. If the patient is able to ambulate without difficulty will discharge. Moderate to severe anemia is present. No transfusion indicated. No active blood loss. Refer outpatient follow-up for this. Discharge Plan Departure Patient Disposition: Home Clinical Impression: Fall Instructions: DI for Trauma Activity Restrictions/Additional Instructions: No immediately dangerous injury is identified on careful evaluation. Nor do I find a cause for her frequent falls recently. I recommend cautious observation with attention to fall prevention. Follow-up with primary care and research and development specialist as previously arranged. Return to the ED for new or worsening symptoms especially if they are associated with high fever, fainting, chest pain, repeated vomiting or severe things such as this. Prescriptions: No Action escitalopram oxalate [Lexapro] 10 mg tablet 10 mg PO QDAY Qty: 90 3RF Hold Instructions: med change oxycodone 5 mg tablet 5 mg PO BID PRN (Reason: pain) Qty: 30 0RF coenzyme Q10 [CoQ-10] 100 mg capsule 200 mg PO DAILY cholecalciferol (vitamin D3) 125 mcg (5,000 unit) capsule 5,000 unit PO QDAY Qty: 0 chlorthalidone 25 mg tablet 12.5 mg PO DAILY terconazole 0.4 % cream 1 appful vaginal BEDTIME Qty: 45 3RF Rx Instructions: Apply to affected area(s) at bedtime for 7-10 nights (DME) Disability Placard See Rx Instructions .Route .MEDSUPPLY Qty: 1 0RF Rx Instructions: Patient qualifies for Disability Placard (DME) pen needle, diabetic [1st Tier Unifine Pentips] 31 gauge x 5/16 needle See Dose Instructions .ROUTE .MEDSUPPLY Qty: 100 11RF Dose Instruction: As directed Rx Instructions: use to inject insulin at bedtime (DME) Blood Glucose Test Strip See Rx Instructions .ROUTE .MEDSUPPLY Qty: 200 11RF Rx Instructions: use to test blood sugar three times daily as directed zolpidem 10 mg tablet 5 - 10 mg PO BEDTIME PRN (Reason: insomnia) Qty: 60 2RF ondansetron 4 mg tablet,disintegrating 4 mg PO Q8H PRN (Reason: nausea and vomiting) Qty: 14 3RF amlodipine 10 mg tablet 5 mg PO DAILY carvedilol 25 mg tablet 25 mg PO BID Rx Instructions: take 1 tablet by mouth twice a day with food or with meals cephalexin 500 mg capsule 500 mg PO BID atorvastatin 10 mg tablet 10 mg PO DAILY losartan 100 mg tablet 100 mg PO DAILY gabapentin 300 mg capsule 900 mg PO BEDTIME PreserVision AREDS [id number] Capsule 1 cap PO BID glimepiride 4 mg tablet 8 mg PO QAM insulin aspart U-100 [Novolog FlexPen U-100 Insulin] 100 unit/mL (3 mL) insulin pen 5 - 6 unit SUBCUT TIDWM Rx Instructions: 3 nits insulin glargine [Basaglar KwikPen U-100 Insulin] 100 unit/mL (3 mL) Insulin Pen 14 unit SUBCUT BEDTIME Januvia 50 mg tablet 50 mg PO DAILY Referrals: Butch Browning MD [Primary Care Provider] - Stand Alone Forms: Patient Portal/API
[2023-05-20 12:33] LABS: Appearance Urine UA CLEAR; Bilirubin Urine UA NEGATIVE (NEGATIVE); Color Urine UA YELLOW; Glucose Urine UA NEGATIVE (Negative); Ketones Urine UA NEGATIVE (NEGATIVE); Leukocyte Esterase Urine UA NEGATIVE (NEGATIVE); Nitrite Urine UA NEGATIVE (Negative); Occult Blood Urine UA NEGATIVE (Negative); Protein Urine UA NEGATIVE (Negative); Urobilinogen Urine UA 0.2 E.U./dL (0.2)
[2023-05-20 12:35] LABS: Add Manual Diff / Slide Review NO; Basophils Absolute Auto 100 /uL (0-100); Basophils Percent Auto 0.6 % (0-2); Eosinophils Absolute Auto 300 /uL (0-450); Eosinophils Percent Auto 2.8 % (2-4); Hematocrit 26.5 % (36-46); Hemoglobin 8.7 g/dL (12.0-16.0); Lymphocytes Absolute Auto 900 /uL (1100-4500); Lymphocytes Percent Auto 8.1 % (25-40); Mean Corpuscular HGB Conc 32.9 % (30-36); Mean Corpuscular Hemoglobin 27.9 PG (26-34); Mean Corpuscular Volume 84.9 fL (80-100); Monocytes Absolute Auto 800 /uL (0-900); Monocytes Percent Auto 7.6 % (3-14); Neutrophils Absolute Auto 8600 /uL (1500-7000); Neutrophils Percent Auto 80.9 % (50-75); Platelet Count 418 X10^3/uL (150-400); Red Blood Cell Count 3.12 X10^6/uL (4.0-5.2); Red Cell Distribution Width 19.6 % (11.6-14.8); White Blood Cell Count 10.7 X10^3/uL (4.5-11.0)
[2023-05-20 12:36] LABS: Bacteria Urine None Seen; Culture Indicated Urine Cult Not Indicated; RBC Urine None Seen (0-5/HPF); Squamous Epithelial Cell Urine None Seen (0-5/HPF); WBC Urine None Seen (0-5/HPF)
--- NOTE | 2023-05-20 12:37 | PC.NURSE ---
Pt came to the ED today via EMS because she has had 3 falls in 24 hours and takes eliquis. Son reports that the last 2 falls were more of a slide to the floor due to weakness. Pt has recently had 7 surgeries within 1.5 months to correct necrotic and infected tissue from a past mastectomy 25 years ago. pt was recently at [facility] and underwent an extensive thoracic surgery to remove infected tissue and cover old wounds. Pt is MRSA and Klebsiella positive as reported by [facility] and pt's son. Pt reports that her infection is systemic and that the wounds themselves are not infectious. Pt currently has a single lumen picc line in right arm that which she gets daily abx infusions at home. Pt has 2 BRITTNI drains both located on the left and right abd. One wound vac that is located on the left mastectomy site. Pt is currently 4 days post op. Son notes that pt was dx with PE in the left lung 5 days ago at [facility]. Pt afebrile. Denies cp, sob, n/v. Pt states that she has been feeling increasingly weaker than normal s/p surgeries. Pt hypertensive 196/84 and HR 67. o2 sat 96% on RA. Pt a7ox4. 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 Dr Feliciano at bedside during triage. Labs drawn from picc and sent. EKG done.
[2023-05-20 12:52] LABS: Alanine Aminotransferase 20 IU/L (<35); Albumin 3.3 g/dL (3.5-5.0); Albumin Globulin Ratio 0.9 (1.0-2.8); Alkaline Phosphatase 115 U/L (38-126); Aspartate Aminotransferase 32 IU/L (14-36); BUN Creatinine Ratio 17.7 (6-22); Bilirubin Total 0.6 mg/dL (0.2-1.3); Blood Urea Nitrogen 23 mg/dL (7-17); Calcium 9.2 mg/dL (8.4-10.2); Carbon Dioxide 28 mmol/L (22-32); Chloride 103 mmol/L (98-107); Estimated Glomerular Filt Rate 42 mL/min (>60); Globulin 3.5 g/dL (1.7-4.1); Glucose 119 mg/dL (80-110); HEMOLYSIS < 15 (0-50); Potassium 3.9 mmol/L (3.4-5.1); Sodium 138 mmol/L (137-145); Total Protein 6.8 g/dL (6.3-8.2)
--- NOTE | 2023-05-20 15:03 | PC.NURSE ---
PT at bedside to evaluate patient's mobility status. Pt weak and unsteady on her feet. Pt arousablet o sound and touch, but increasingly sleepy.
--- NOTE | 2023-05-20 15:31 | PT.IIE ---
Surgical History (Last Reviewed 02/27/23 @ 04:47 by Butch Browning MD) Anesthesia complication H/O lumpectomy H/O mastectomy History of fusion of cervical spine (2011) History of knee replacement (2006) History of lumbar spinal fusion (2009) History of lumbar spinal fusion Hx of bilateral cataract extraction Status post left knee replacement Medical History (Last Updated 02/27/23 @ 09:36 by Butch Browning MD) Acute upper GI bleed Anemia in CKD (chronic kidney disease) Anxiety Candidiasis Cataract (2010) Cerebrovascular disease Chicken pox Depression, major, recurrent Fractures GERD (gastroesophageal reflux disease) Hayfever (~1959) History of colonic polyps History of recurrent ear infection Hyperlipidemia (~1997) Hyperparathyroidism (2013) Impingement syndrome of right shoulder Insulin use (long-term) in type 2 diabetes Lumbar spine pain Measles Obesity (BMI 30-39.9) ROSCOE (obstructive sleep apnea) Pneumonia Shoulder pain (2014) Stage 3b chronic kidney disease (CKD) Sternal fracture (2014) Type 2 diabetes mellitus with stage 3b chronic kidney disease Unilateral primary osteoarthritis, left knee Urinary incontinence (2012) Vertigo (2011) Physical Therapy Inpatient Evaluation/Re-Eval M1 PT/OT-IP Prior Functional Status Start: 05/20/23 13:52 Freq: Status: Active Protocol: Document 05/20/23 14:40 MB (Rec: 05/20/23 15:30 MB [id number]) Medical Review Prior Functional Status Medical History Reviewed Yes Diet/Fluid Consistency Regular Communication Some impulsivity/decreased safety awareness at SNF a month ago Mobility and Gait Rollator use Activities of Daily Living and IADL's Son reports that she was mod I Social History Household Members spouse Living Arrangements House Number of Floors (Floors) One Floor Number of Stairs To Enter/Railing? Accessible living situation Home Environment Walk in Shower Home Equipment Four Wheel Walker Employment Status Retired Additional Social History Comment Son and pt do not provide details but pt reports accessible house, that they built it that way M2 PT-IP Current Condition Start: 05/20/23 13:52 Freq: Status: Active Protocol: Document 05/20/23 14:40 MB (Rec: 05/20/23 15:30 MB [id number]) Physical Therapy Current Condition Current Condition Evaluation Date 05/20/23 Treatment Diagnosis Fall, AMS M3 PT-IP Subjective Start: 05/20/23 13:52 Freq: Status: Active Protocol: Document 05/20/23 14:40 MB (Rec: 05/20/23 15:30 MB [id number]) Subjective Physical Therapy Visit Type Type Initial Evaluation Visit Start Time 14:40 Visit Stop Time 15:10 Total Visit Minutes 30 Number of BIOMEDICAL ELECTRONICS TECHNICIAN Visits 0 Physical Therapy Visit Comments Patient Comments Pt with confusion and tends to keep her eyes closed. Son provides recent history as not a lot of information available in the chart. Pt left [facility] last month for home. She was home about a week before returning to [facility] and she underwent two more surgical procedures on left chest area where she has had wound. She has a wound vac and drains. Therapy Pain Assessment Pain Present Pain Present Denied Pain M4 PT-IP Mobility and Gait Start: 05/20/23 13:52 Freq: Status: Active Protocol: Document 05/20/23 14:40 MB (Rec: 05/20/23 15:30 MB [id number]) PT-Bed Mobility Assessment Supine to Sit Supine to Sit Minimal Assistance,2 Person Assistance,Head of Bed Elevated Sit to Supine Sit to Supine Maximum Assistance,2 Person Assistance,Head of Bed Elevated Scooting Scooting to Edge of Bed Minimal Assistance PT-Transfer Assessment Sit to and From Stand Sit to and from Stand Moderate Assistance,2 Person Assistance,Use of Upper Extremities Equipment Transfer Assistive Device Gait Belt,Front Wheeled Walker Gait Assessment Gait Gait Assistance Required: Moderate Assistance,2 Person Assist Distance (Feet) 1 Able to Maintain Weight Bearing Status Yes During Gait Assistive Devices Assistive Device Gait Belt,Front Wheeled Walker Gait Deviations General Gait Pattern Decreased Feet Clearance, Flexed Trunk,Step-to Gait,Wide Based Gait Factors Limiting Gait Function Factors Limiting Gait Function Decreased Activity Tolerance, Decreased Strength,Difficulty Following Directions,Poor Safety Awareness Comments Gait Comments Pt takes a few right side steps and nsg and PT assistance and constant cueing PT-Balance Assessment Sitting Balance and Reactions Static Sitting Balance Ability Fair Dynamic Sitting Balance Ability Fair Standing Balance and Reactions Static Standing Balance Ability Fair Dynamic Standing Balance Ability Fair Device Used RW M5 PT-IP Objective Assessments Start: 05/20/23 13:52 Freq: Status: Active Protocol: Document 05/20/23 14:40 MB (Rec: 05/20/23 15:30 MB [id number]) Orientation Orientation/Cognition Level of Alertness Confusional State Orientation Name,Birthday Language Function Ability Garbled Speech Safety Awareness Decreased Safety Awareness Memory Description Short Term Impaired,Senior Care Impaired Comments Pt is very confused and has trouble following commands and answering questions. She is very lethargic and keeps her eyes closed through most of assessment. Nsg is nearby. BP taken around ankle and is high on both legs with systolic BP over 200 mmHg Gross Range of Motion Upper Extremity ROM Impairments Pt does not follow commands and wish to limit left shoulder elevation given left chest surgeries, wound vac Lower Extremity ROM Impairments Pt does not follow commands, functional movement with mobility Strength Comments Strength Comments Pt does not follow strength commands today Coordination Assessment Assessment Coordination Comments Pt cannot follow any coordination or sensation commands Sensation Assessment Comments Sensation Comments Pt cannot follow commands M7 PT-IP Assessment and Plan Start: 05/20/23 13:52 Freq: Status: Active Protocol: Document 05/20/23 14:40 MB (Rec: 05/20/23 15:30 MB [id number]) PT Summary Assessment and Plan Potential Rehabilitation Potential Fair Status of Condition at Evaluation Unstable Summary Impairments ROM,Strength,Balance,Cognition ,Bed Mobility,Transfers,Gait, Activity Tolerance Progress Towards Goals Slow Progress due to Activity Tolerance Assessment Summary Pt is a 77 y/o female seen in ED. There is not a lot of information available in the chart. Son reports she was d/ cd from [facility] on Saturday after two more procedures for her left chest wound and she has a wound vac. Pt with fall at home and she has severely impaired mental status in the ED and her BP is high and is taken in her B LEs. Nsg and son nearby during assessment and assist PT. Pt keeps her eyes closed for most of the assessment and does get up to EOB with assistance and back to [facility] with assistance of therapist and nsg. PT does recommend ongoing skilled therapy in the acute and post-acute settings. Hopefully, her cognition will improve soon. Goals Bed Mobility Goal Independent Transfer Goal Independent,Front Wheeled Walker Gait Goal Independent,Front Wheel Walker Gait Distance 100 Other Goals Pt to progress to LRAD with gait as appropriate Days to Meet Goals 5 Frequency of Treatment Frequency Of Treatment Once a Day Treatment Plan Physical Therapy Treatment Plan Bed Mobility Training,Transfer Training,Gait Training, Therapeutic Exercise,Balance Retraining,Discharge Planning Precautions Other Precautions Monitor left arm movement given chest wound vac/post-op Recommendations To Nursing Amount of Assist Needed 2 Person Assist Discharge Recommendations PT Discharge Recommendations SNF Rehab Transportation Needs at Discharge Wheelchair/Cabulance
--- NOTE | 2023-05-20 16:33 | CM.SWNOTE ---
ED MANAGER ENVIRONMENTAL HEALTH Note Patient is 77 y/o female who presents to the ED via EMS post GLF on blood thinners. It is reported that patient has had three GLFs in the last 24 hours. Patent had recent inpatient stay at [facility] from 05/07/23-05/17/23 due to PE in left lung, wound vac surgery and discharged to home with [facility]. Patient was also inpatient at [facility] on 03/29/23-04/11/23 and discharged to [facility] SNF rehab. Patient's PCP is Dr. Browning, patient has [employer] and [facility] insurance. Patient has hx of GLFs, Cerebrovascular, Anemia in CKD, Stage 3b CKD, Type 2 diabetes, open wound of left chest wall, hx of left breast cancer and Depression. Upon medical clearance, MANAGER ENVIRONMENTAL HEALTH receives MANAGER ENVIRONMENTAL HEALTH consult due to patient's son (TOBY) Brandon requesting SNF rehab for patient. There is reported concern for patient's frequent GLFs and difficulty managing ADLs at home since d/c from . Patient presents A/Ox3 but presents with some confusion. Patient resides in [place] with spouse and patient has caregiver that stays overnight at home. It is reported that patient's son Brandon resides in [place] but he has been staying with patient recently. Patient has FWW at home. Patient and son endorse preference for [facility] SNF rehab. Son states preference for private room and that they are willing to pay the cost differential to ensure patient gets a private room. Per PT eval, patient presents with confusion and keeps her eyes closed during evaluation. PT endorses concern for patient's safety and awareness. PT recommends SNF rehab. MANAGER ENVIRONMENTAL HEALTH calls [facility] and endorses patient's recent inpatient stay at and that patient was at [facility] in April 2023, it is reported that they will review patient. MANAGER ENVIRONMENTAL HEALTH requests preference for private room for patient, Darlene states she will review it with the team and states that family will need to pay $462 daily rate and pay for a month up front, but will likely receive a 10% discount. MANAGER ENVIRONMENTAL HEALTH calls [facility] regarding patient and pending transfer to SNF rehab, MANAGER ENVIRONMENTAL HEALTH leaves . MANAGER ENVIRONMENTAL HEALTH calls [facility] intake back at 1600 requesting update on patient status and leaves requesting return call. Plan: patient to board in ED awaiting acceptance and transfer to [facility] rehab. Ara Zapata OLIVE PITTER
[2023-05-20] MEDS: carvediloL 12.5 MG TABLET 25 MG PO ×2 (16:48→21:14)
[2023-05-20] MEDS: APIXABAN 5 MG TABLET 10 MG PO ×2 (16:48→21:13)
[2023-05-20] MEDS: INSULIN REGULAR 100 UNIT/ML 3 ML VIAL SUBCUT (16:58)
[2023-05-20] MEDS: ERTAPENEM 1 GM in SODIUM CHLORIDE 0.9% 100 ML IV (18:07)
--- NOTE | 2023-05-20 18:09 | PC.NURSE ---
Pt up to bsc with 1 person assist. Pt speaking in full sentences and is more alert at this time. Pt a&ox4.
--- NOTE | 2023-05-20 18:59 | PC.NURSE ---
Pt moved to room 6 and tolerated well. Pt a&0x4 and answers questions appropriately. Pt easily arousable to name, touch and sound. BP 165/77 HR 70
[2023-05-20] MEDS: INSULIN GLARGINE 100 UNIT/ML 3ML PEN 14 UNIT SUBCUT (21:12)
[2023-05-20] MEDS: AMLODIPINE 5 MG TABLET PO (21:13)
[2023-05-20] MEDS: ATORVASTATIN 20 MG TABLET 10 MG PO (21:14)
[2023-05-20 21:37] LABS: COVID19 -Nasal RAPID Negative (Negative)
[2023-05-20] MEDS: OXYCODONE IR 5 MG TABLET PO (22:57)
[2023-05-21] VITALS (19 sets, daily range): BP systolic 131–171; BP diastolic 62–79; PULSE 66–71; RESP 16–18; TEMP 37; O2SAT 94–97
[2023-05-21 06:23] LABS: Add Manual Diff / Slide Review NO; Basophils Absolute Auto 100 /uL (0-100); Basophils Percent Auto 1.1 % (0-2); Eosinophils Absolute Auto 300 /uL (0-450); Eosinophils Percent Auto 3.4 % (2-4); Hematocrit 24.4 % (36-46); Hemoglobin 8.1 g/dL (12.0-16.0); Lymphocytes Absolute Auto 900 /uL (1100-4500); Lymphocytes Percent Auto 11.2 % (25-40); Mean Corpuscular HGB Conc 33.1 % (30-36); Mean Corpuscular Hemoglobin 27.8 PG (26-34); Mean Corpuscular Volume 84.2 fL (80-100); Monocytes Absolute Auto 800 /uL (0-900); Monocytes Percent Auto 9.6 % (3-14); Neutrophils Absolute Auto 6300 /uL (1500-7000); Neutrophils Percent Auto 74.7 % (50-75); Platelet Count 391 X10^3/uL (150-400); Red Blood Cell Count 2.89 X10^6/uL (4.0-5.2); Red Cell Distribution Width 19.4 % (11.6-14.8); White Blood Cell Count 8.5 X10^3/uL (4.5-11.0)
[2023-05-21 06:32] LABS: Alanine Aminotransferase 17 IU/L (<35); Albumin Globulin Ratio 0.9 (1.0-2.8); Alkaline Phosphatase 107 U/L (38-126); Aspartate Aminotransferase 22 IU/L (14-36); BUN Creatinine Ratio 14.6 (6-22); Bilirubin Total 0.5 mg/dL (0.2-1.3); Blood Urea Nitrogen 18 mg/dL (7-17); Calcium 9.1 mg/dL (8.4-10.2); Carbon Dioxide 27 mmol/L (22-32); Chloride 105 mmol/L (98-107); Estimated Glomerular Filt Rate 45 mL/min (>60); Globulin 3.5 g/dL (1.7-4.1); Glucose 58 mg/dL (80-110); HEMOLYSIS < 15 (0-50); Potassium 3.4 mmol/L (3.4-5.1); Sodium 137 mmol/L (137-145); Total Protein 6.5 g/dL (6.3-8.2)
[2023-05-21] MEDS: APIXABAN 5 MG TABLET 10 MG PO (08:15)
[2023-05-21] MEDS: AMLODIPINE 5 MG TABLET PO (08:15)
[2023-05-21] MEDS: SITAGLIPTIN 50 MG TABLET PO (08:16)
[2023-05-21] MEDS: CHLORTHALIDONE 25 MG TABLET 12.5 MG PO (08:16)
[2023-05-21] MEDS: ESCITALOPRAM 10 MG TABLET PO (08:16)
[2023-05-21] MEDS: carvediloL 12.5 MG TABLET 25 MG PO ×2 (08:17→21:07)
[2023-05-21] MEDS: INSULIN REGULAR 100 UNIT/ML 3 ML VIAL SUBCUT ×2 (08:17→17:25)
[2023-05-21] MEDS: ERTAPENEM 1 GM in SODIUM CHLORIDE 0.9% 100 ML IV (08:21)
[2023-05-21] MEDS: OXYCODONE IR 5 MG TABLET PO (10:21)
--- NOTE | 2023-05-21 13:16 | PT.IPTN ---
Physical Therapy Treatment Note M2 PT-IP Current Condition Start: 05/20/23 13:52 Freq: Status: Active Protocol: Document 05/20/23 14:40 MB (Rec: 05/20/23 15:30 MB [id number]) Physical Therapy Current Condition Current Condition Evaluation Date 05/20/23 Treatment Diagnosis Fall, AMS M3 PT-IP Subjective Start: 05/20/23 13:52 Freq: Status: Active Protocol: Document 05/21/23 14:16 TS (Rec: 05/21/23 14:25 TS [id number]) Subjective Physical Therapy Visit Type Type Treatment Note Visit Start Time 13:16 Visit Stop Time 13:44 Total Visit Minutes 28 Notes Spouse present. Number of AGED OR DISABLED CARE WORKER Visits 1 Physical Therapy Visit Comments Patient Comments Pt is alert and responds to questions appropriately, can make needs known. Pt reports feeling much better today now that she has had some sleep. She is agreeable to PT. M4 PT-IP Mobility and Gait Start: 05/20/23 13:52 Freq: Status: Active Protocol: Document 05/21/23 14:16 TS (Rec: 05/21/23 14:25 TS [id number]) PT-Bed Mobility Assessment Supine to Sit Supine to Sit Standby Assistance Sit to Supine Sit to Supine Minimal Assistance,1 Person Assistance Scooting Scooting to Edge of Bed Standby Assistance PT-Transfer Assessment Sit to and From Stand Sit to and from Stand Contact Guard Assistance,Use of Upper Extremities Equipment Transfer Assistive Device Gait Belt,Front Wheeled Walker Comments Mobility Comments Supine to sit SBA with BUE support. She performed sit to stand CGA with use of FWW, requires assist with wound vac . She ambulated in hallway ~80 'SBA/CGA with FWW, has a step to gait with slow luna. Pt ambulated back to room, sit to supine Marybel for LEs into bed, pt assists with use of step stool to push feet off of. Pt was left in bed, nursing in room. Gait Assessment Gait Gait Assistance Required: Standby Assistance,Contact Guard Assist,1 Person Assist Distance (Feet) 80 Able to Maintain Weight Bearing Status Yes During Gait Assistive Devices Assistive Device Gait Belt,Front Wheeled Walker Gait Deviations General Gait Pattern Decreased Feet Clearance, Flexed Trunk,Step-to Gait,Wide Based Gait Factors Limiting Gait Function Factors Limiting Gait Function Decreased Activity Tolerance, Decreased Strength,Difficulty Following Directions,Poor Safety Awareness Comments Gait Comments See mobility comments. PT-Balance Assessment Sitting Balance and Reactions Static Sitting Balance Ability Fair Dynamic Sitting Balance Ability Fair Standing Balance and Reactions Static Standing Balance Ability Fair Dynamic Standing Balance Ability Fair Device Used RW M5 PT-IP Objective Assessments Start: 05/20/23 13:52 Freq: Status: Active Protocol: Document 05/20/23 14:40 MB (Rec: 05/20/23 15:30 MB [id number]) Orientation Orientation/Cognition Level of Alertness Confusional State Orientation Name,Birthday Language Function Ability Garbled Speech Safety Awareness Decreased Safety Awareness Memory Description Short Term Impaired,Alf Impaired Comments Pt is very confused and has trouble following commands and answering questions. She is very lethargic and keeps her eyes closed through most of assessment. Nsg is nearby. BP taken around ankle and is high on both legs with systolic BP over 200 mmHg Gross Range of Motion Upper Extremity ROM Impairments Pt does not follow commands and wish to limit left shoulder elevation given left chest surgeries, wound vac Lower Extremity ROM Impairments Pt does not follow commands, functional movement with mobility Strength Comments Strength Comments Pt does not follow strength commands today Coordination Assessment Assessment Coordination Comments Pt cannot follow any coordination or sensation commands Sensation Assessment Comments Sensation Comments Pt cannot follow commands M7 PT-IP Assessment and Plan Start: 05/20/23 13:52 Freq: Status: Active Protocol: Document 05/21/23 14:16 TS (Rec: 05/21/23 14:25 TS [id number]) PT Summary Assessment and Plan Potential Rehabilitation Potential Fair Summary Impairments ROM,Strength,Balance,Cognition ,Bed Mobility,Transfers,Gait, Activity Tolerance Progress Towards Goals Progressing Toward Goals Assessment Summary Lois is making some progress with her mobility. She is SBA for supine to sit to EOB. She performed sit to stand CGA x1 with use of FWW. She progressed her ambulation to ~ 80'SBA/CGA with use of FWW. Pt appears more clear today and can answer all questions. PT is recommending SNF rehab this time to progress strength and functional mobility before safe d/c home. Goals Bed Mobility Goal Independent Transfer Goal Independent,Front Wheeled Walker Gait Goal Independent,Front Wheel Walker Gait Distance 100 Other Goals Pt to progress to LRAD with gait as appropriate Days to Meet Goals 5 Frequency of Treatment Frequency Of Treatment Once a Day Treatment Plan Physical Therapy Treatment Plan Bed Mobility Training,Transfer Training,Gait Training, Therapeutic Exercise,Balance Retraining,Discharge Planning Precautions Other Precautions Monitor left arm movement given chest wound vac/post-op Recommendations To Nursing Amount of Assist Needed 1 Person Assist Discharge Recommendations Transportation Needs at Discharge Wheelchair/Cabulance
--- NOTE | 2023-05-21 13:45 | PC.NURSE ---
VM notes reviewed, hgb 8.1 on 05/17/23
--- NOTE | 2023-05-21 16:59 | CM.SWNOTE ---
DCP Note Continued Patient has wound KCI wound vac in place, BRITTNI drain and PICC line. MEMBERSHIP SALES ADVISOR receives message from [facility] that they cannot accommodate patient's home needs at this time due to concern for acuity of wound care and recent GLFs. MEMBERSHIP SALES ADVISOR calls son and he states that he and his dad were managing PICC line antibiotics at home since d/c from [facility]. MEMBERSHIP SALES ADVISOR receives VM from Darlene at [facility] that states they can accept patient at [facility] with [facility] but they cannot provide patient with a private room due to the current room status. MEMBERSHIP SALES ADVISOR reviews this with family and they indicate agreement and understanding. It is reported that patient will need wound care referral with wound care. MEMBERSHIP SALES ADVISOR calls wound care clinic and faxes referral. It is reported that wound care clinic can see patient starting Saturday05/24/23 @ 1:30pm. [facility] states they can accept patient as early as tomorrow 05/22/23 at 11:30am, patient will transport via wheelchair. PASSR completed, MEMBERSHIP SALES ADVISOR to prepare transfer packet with signed med list and SNF orders. Plan: patient to transfer to [facility] SNF rehab tomorrow morning at 11:30 via wheelchair and [facility] staff. SNF packet to be provided to staff. DIANE KaplanSW
[2023-05-21] MEDS: ATORVASTATIN 20 MG TABLET 10 MG PO (21:08)
[2023-05-21] MEDS: APIXABAN 5 MG TABLET PO (21:08)
[2023-05-21] MEDS: INSULIN GLARGINE 100 UNIT/ML 3ML PEN 14 UNIT SUBCUT (21:11)
[2023-05-22] VITALS (7 sets, daily range): BP systolic 139–163; BP diastolic 60–78; PULSE 72–81; RESP 14; TEMP 36.7–37; O2SAT 93–97
--- NOTE | 2023-05-22 01:52 | PC.NURSE ---
Both LEFT and RIGHT BRITTNI drains emptied. 10cc of serosanguineous fluid from each drain.
--- NOTE | 2023-05-22 01:55 | PC.NURSE ---
This nurse received report from [facility]. This nurse assessed bot right and left BRITTNI drain, both are patent, with serosanguineous drainage visible in drainage device. Both dressings are clean, dry and intact. Wound vac assessed, dressing clean, dry and intact around incision site, wound vac on and setting to 125mmHg. Patient alert and orientedx4, GCS 15. Patient getting up to use the commode with one person assist with AHSAN Ramirez Tech. Patient denied pain at this time.
[2023-05-22] MEDS: ERTAPENEM 1 GM in SODIUM CHLORIDE 0.9% 100 ML IV (08:29)
[2023-05-22] MEDS: carvediloL 12.5 MG TABLET 25 MG PO (08:30)
[2023-05-22] MEDS: CHLORTHALIDONE 25 MG TABLET 12.5 MG PO (08:30)
[2023-05-22] MEDS: AMLODIPINE 5 MG TABLET PO (08:30)
[2023-05-22] MEDS: ESCITALOPRAM 10 MG TABLET PO (08:30)
[2023-05-22] MEDS: APIXABAN 5 MG TABLET PO (08:30)
[2023-05-22] MEDS: SITAGLIPTIN 50 MG TABLET PO (08:30)
[2023-05-22] MEDS: INSULIN REGULAR 100 UNIT/ML 3 ML VIAL SUBCUT (08:31)
[2023-05-22] MEDS: OXYCODONE IR 5 MG TABLET PO (08:45)
--- NOTE | 2023-05-22 11:13 | PC.NURSE ---
note about leg bag entered on wrong patient.
== END 2023-05-22 11:30 ==
PROVIDERS: Emergency Medicine; Emergency Provider Family Medicine Addiction Medicine; Family Provider Family Medicine; PCP Internal Medicine
DX: S09.90XA Unspecified injury of head, initial encounter (principal); W18.30XA Fall on same level, unspecified, initial encounter; Z79.01 Long term (current) use of anticoagulants; R03.0 Elevated blood-pressure reading, without diagnosis of hypertension
CPT/HCPCS: 36415; 70450; 80053; 81001; 82272; 82962; 85025; 87635; 93005; 93010; 96365; 96366; 96372; 97116; 97161; 97530; 99284; C9803; J1335

== ENCOUNTER → 2023-05-24 14:22 | Outpatient (CLI) | payer MEDICARE, OTHER, SELFPAY ==
[2022-08-16 11:07] VITALS: BMI 30.5
== END ==
PROVIDERS: Family Provider Family Medicine; PCP Internal Medicine; Referring Provider Surgery; Visit Provider Physician Assistant
DX: S31.109A Unspecified open wound of abdominal wall, unspecified quadrant without penetration into peritoneal cavity, initial encounter (principal); T81.31XA Disruption of external operation (surgical) wound, not elsewhere classified, initial encounter
CPT/HCPCS: 97605; 99215

== ENCOUNTER → 2023-05-29 11:06 | Outpatient (CLI) | payer MEDICARE, OTHER, SELFPAY ==
[2022-08-16 11:07] VITALS: BMI 30.5
== END ==
LOC: WC 11:08
PROVIDERS: Family Provider Family Medicine; PCP Internal Medicine; Referring Provider Internal Medicine; Visit Provider Surgery
DX: T81.89XA Other complications of procedures, not elsewhere classified, initial encounter (principal); S21.102A Unspecified open wound of left front wall of thorax without penetration into thoracic cavity, initial encounter
CPT/HCPCS: 97605

== ENCOUNTER → 2023-06-04 10:59 | Outpatient (CLI) | payer MEDICARE, OTHER, SELFPAY ==
[2022-08-16 11:07] VITALS: BMI 30.5
== END ==
LOC: WC 11:00
PROVIDERS: Family Provider Family Medicine; PCP Internal Medicine; Referring Provider Surgery; Visit Provider Surgery
DX: T81.89XA Other complications of procedures, not elsewhere classified, initial encounter (principal); S21.102A Unspecified open wound of left front wall of thorax without penetration into thoracic cavity, initial encounter; L53.9 Erythematous condition, unspecified; E11.628 Type 2 diabetes mellitus with other skin complications; I26.99 Other pulmonary embolism without acute cor pulmonale; I10 Essential (primary) hypertension; N18.9 Chronic kidney disease, unspecified; Z85.3 Personal history of malignant neoplasm of breast; Z79.899 Other long term (current) drug therapy
CPT/HCPCS: 11042; 11045; 97605

== ENCOUNTER → 2023-06-07 09:43 | Outpatient (CLI) | payer MEDICARE, OTHER, SELFPAY ==
[2023-06-05 15:47] VITALS: BMI 30.5
== END ==
LOC: WC 09:44
PROVIDERS: Family Provider Family Medicine; PCP Internal Medicine; Referring Provider Surgery; Visit Provider Physician Assistant
DX: T81.89XA Other complications of procedures, not elsewhere classified, initial encounter (principal); S31.112A Laceration without foreign body of abdominal wall, epigastric region without penetration into peritoneal cavity, initial encounter
CPT/HCPCS: 97605

== ENCOUNTER 2023-06-09 14:16 | Emergency (ER) | payer MEDICARE, OTHER, SELFPAY ==
[2023-06-05 15:47] VITALS: BMI 30.5
--- NOTE | 2023-06-09 14:21 | ED.ALLEREA ---
HPI - Allergic Reaction General Stated complaint: fall Time Seen by Provider: 06/09/23 14:20 Related Data Home Medications Medication Instructions Recorded Confirmed insulin glargine 100 unit/mL (3 14 unit SUBCUT BEDTIME 06/14/20 05/20/23 mL) subcutaneous pen (Basaglar KwikPen U-100 Insulin) coenzyme Q10 100 mg capsule 200 mg PO DAILY 09/29/20 05/20/23 (CoQ-10) chlorthalidone 25 mg tablet 12.5 mg PO DAILY 07/03/21 05/20/23 insulin aspart U-100 100 unit/mL 5 - 6 unit SUBCUT TIDWM 08/05/21 05/20/23 (3 mL) subcutaneous pen (Novolog FlexPen U-100 Insulin aspart) atorvastatin 10 mg tablet 10 mg PO DAILY 02/27/23 05/20/23 carvedilol 25 mg tablet 25 mg PO BID 02/27/23 05/20/23 gabapentin 300 mg capsule 900 mg PO BEDTIME 02/27/23 05/20/23 sitagliptin phosphate 50 mg tablet 50 mg PO DAILY 02/27/23 05/20/23 (Januvia) amlodipine 5 mg tablet 5 mg PO DAILY 05/20/23 05/20/23 apixaban 5 mg tablet (Eliquis) 5 mg PO BID 05/20/23 05/21/23 ertapenem 1 gram solution for 1 g IM Q24H 05/20/23 05/20/23 injection Previous Rx's Medication Instructions Recorded pen needle, diabetic 31 gauge x #100 ea 03/03/1810/16 (1st Tier Unifine Pentips) blood sugar diagnostic (Blood #200 ea 04/30/22 Glucose Test strips) escitalopram oxalate 10 mg tablet 10 mg PO QDAY #90 tabs 08/30/22 (Lexapro) oxycodone 5 mg tablet 5 mg PO BID PRN pain #30 tabs 10/23/22 Disability Placard #1 ea 12/31/22 ertapenem 1 gram solution for 1 g IM Q24H #5 ea 05/22/23 injection escitalopram oxalate 10 mg tablet 10 mg PO DAILY #30 tabs 05/22/23 (Lexapro) oxycodone 5 mg tablet 5 mg PO BID PRN pain #20 tabs 05/22/23 Allergies Allergy/AdvReac Type Severity Reaction Status Date / Time Anesthetics - Amide Type - Allergy Severe PROJECTILE Verified 05/22/23 06:32 Select A VOMITING [Anesthetics - Amide Type] Anesthetics - Keke Type- Allergy Severe PROJECTILE Verified 05/22/23 06:32 Parabens VOMITING [Anesthetics - Keke Type] ibuprofen Allergy Intermediate gastic Verified 05/22/23 06:32 bleed Patient History Medical History (Updated 06/06/23 @ 00:00 by ) History of colonic polyps Depression, major, recurrent Cerebrovascular disease Anemia in CKD (chronic kidney disease) Stage 3b chronic kidney disease (CKD) Insulin use (long-term) in type 2 diabetes Type 2 diabetes mellitus with stage 3b chronic kidney disease Candidiasis Pneumonia ROSCOE (obstructive sleep apnea) Unilateral primary osteoarthritis, left knee Obesity (BMI 30-39.9) Acute upper GI bleed Impingement syndrome of right shoulder Sternal fracture (2014) Hyperparathyroidism (2013) History of recurrent ear infection Vertigo (2011) Shoulder pain (2014) Lumbar spine pain GERD (gastroesophageal reflux disease) Hyperlipidemia (~1997) Urinary incontinence (2012) Cataract (2010) Chicken pox Measles Hayfever (~1959) Anxiety Fractures Surgical History Status post left knee replacement Hx of bilateral cataract extraction H/O lumpectomy H/O mastectomy History of lumbar spinal fusion Anesthesia complication History of fusion of cervical spine (2011) History of lumbar spinal fusion (2009) History of knee replacement (2006) Family History Father Hypertension High cholesterol Pneumonia Mother Hypertension Mental health problem Stroke History of hip surgery Grandfather Heart disease Hypertension High cholesterol Grandmother Hypertension High cholesterol Social History marital status: details: (Stu Barth), 1 son, 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, 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 members: spouse occupational status: other Smoking Status: Never smoker alcohol intake: current substance use type: does not use Smoking Status: Never smoker alcohol intake frequency: holidays/special occasions only Substance Use Type: does not use Discharge Plan Departure Prescriptions: No Action escitalopram oxalate [Lexapro] 10 mg tablet 10 mg PO QDAY Qty: 90 3RF Hold Instructions: med change oxycodone 5 mg tablet 5 mg PO BID PRN (Reason: pain) Qty: 30 0RF coenzyme Q10 [CoQ-10] 100 mg capsule 200 mg PO DAILY chlorthalidone 25 mg tablet 12.5 mg PO DAILY (DME) Disability Placard See Rx Instructions .Route .MEDSUPPLY Qty: 1 0RF Rx Instructions: Patient qualifies for Disability Placard (DME) pen needle, diabetic [1st Tier Unifine Pentips] 31 gauge x 5/16 needle See Dose Instructions .ROUTE .MEDSUPPLY Qty: 100 11RF Dose Instruction: As directed Rx Instructions: use to inject insulin at bedtime (DME) Blood Glucose Test Strip See Rx Instructions .ROUTE .MEDSUPPLY Qty: 200 11RF Rx Instructions: use to test blood sugar three times daily as directed carvedilol 25 mg tablet 25 mg PO BID Rx Instructions: take 1 tablet by mouth twice a day with food or with meals atorvastatin 10 mg tablet 10 mg PO DAILY gabapentin 300 mg capsule 900 mg PO BEDTIME insulin aspart U-100 [Novolog FlexPen U-100 Insulin] 100 unit/mL (3 mL) insulin pen 5 - 6 unit SUBCUT TIDWM Rx Instructions: 3 nits Eliquis 5 mg tablet 5 mg PO BID Rx Instructions: completed 10 mg bid dosing 05/21 w/ am dose. amlodipine 5 mg tablet 5 mg PO DAILY ertapenem 1 gram Recon Soln 1 g IM Q24H oxycodone 5 mg tablet 5 mg PO BID PRN (Reason: pain) Qty: 20 0RF escitalopram oxalate [Lexapro] 10 mg tablet 10 mg PO DAILY Qty: 30 0RF ertapenem 1 gram recon soln 1 g IM Q24H Qty: 5 0RF insulin glargine [Basaglar KwikPen U-100 Insulin] 100 unit/mL (3 mL) Insulin Pen 14 unit SUBCUT BEDTIME Januvia 50 mg tablet 50 mg PO DAILY Referrals: Butch Browning MD [Primary Care Provider] -
--- NOTE | 2023-06-09 14:27 | ED_ITS ---
HPI - Fall <Francine Draper PA-C - Last Filed: 06/09/23 19:07> General Chief Complaint: Extremity Injury, Lower Stated Complaint: fall Time Seen by Provider: 06/09/23 14:20 History of Present Illness HPI Narrative: Patient is a 77-year-old female presenting for evaluation of right knee pain x 4 days. She has had bilateral knee replacements previously. She is multiple comorbidities including several wounds with drains and a wound VAC, she is anticoagulated on Eliquis, has DM type 2, HTN, HLD and CKD. She reports that her pain started 4 days ago after she squatted on the ground to retrieve utensils from under her bed. She states that while squatting she felt a pain in her right knee. She states she was able to gently lean herself to the side, straighten her right leg and call for help. Over the following 2 days, she noticed a bruise over the medial side of her right knee as well as increased swelling and pain. She reports that she has been able to stand and walk with a cane, but is concerned because her right knee seems to be continuing to swell. She is taken 2 tablets of Tylenol prior to coming into the emergency department today. She states that Tylenol helps her pain. She denies any numbness of her right foot and states she has been able to move her foot easily without pain. She denies any calf pain or swelling. Evaluation of previous records show that she was seen in the emergency department on May 20 for a fall. [facility] to receive [facility] due to 3 ground falls over the past several days prior to her ER visit, prolonged complex wound care as well as needing IV antibiotics PICC care. Evaluation of sniff notes show that she receives daily ertapenem and has a PICC line. She had her right knee arthroplasty done in 2007 in [facility]. Related Data Home Medications Medication Instructions Recorded Confirmed insulin glargine 100 unit/mL (3 14 unit SUBCUT BEDTIME 06/14/20 05/20/23 mL) subcutaneous pen (Basaglar KwikPen U-100 Insulin) coenzyme Q10 100 mg capsule 200 mg PO DAILY 09/29/20 05/20/23 (CoQ-10) chlorthalidone 25 mg tablet 12.5 mg PO DAILY 07/03/21 05/20/23 insulin aspart U-100 100 unit/mL 5 - 6 unit SUBCUT TIDWM 08/05/21 05/20/23 (3 mL) subcutaneous pen (Novolog FlexPen U-100 Insulin aspart) atorvastatin 10 mg tablet 10 mg PO DAILY 02/27/23 05/20/23 carvedilol 25 mg tablet 25 mg PO BID 02/27/23 05/20/23 gabapentin 300 mg capsule 900 mg PO BEDTIME 02/27/23 05/20/23 sitagliptin phosphate 50 mg tablet 50 mg PO DAILY 02/27/23 05/20/23 (Januvia) amlodipine 5 mg tablet 5 mg PO DAILY 05/20/23 05/20/23 apixaban 5 mg tablet (Eliquis) 5 mg PO BID 05/20/23 05/21/23 ertapenem 1 gram solution for 1 g IM Q24H 05/20/23 05/20/23 injection Previous Rx's Medication Instructions Recorded pen needle, diabetic 31 gauge x #100 ea 03/03/1810/16 (1st Tier Unifine Pentips) blood sugar diagnostic (Blood #200 ea 04/30/22 Glucose Test strips) escitalopram oxalate 10 mg tablet 10 mg PO QDAY #90 tabs 08/30/22 (Lexapro) oxycodone 5 mg tablet 5 mg PO BID PRN pain #30 tabs 10/23/22 Disability Placard #1 ea 12/31/22 ertapenem 1 gram solution for 1 g IM Q24H #5 ea 05/22/23 injection escitalopram oxalate 10 mg tablet 10 mg PO DAILY #30 tabs 05/22/23 (Lexapro) oxycodone 5 mg tablet 5 mg PO BID PRN pain #20 tabs 05/22/23 Allergies Allergy/AdvReac Type Severity Reaction Status Date / Time Anesthetics - Amide Type - Allergy Severe PROJECTILE Verified 05/22/23 06:32 Select A VOMITING [Anesthetics - Amide Type] Anesthetics - Keke Type- Allergy Severe PROJECTILE Verified 05/22/23 06:32 Parabens VOMITING [Anesthetics - Keke Type] ibuprofen Allergy Intermediate gastic Verified 05/22/23 06:32 bleed Review of Systems <Francine Draper PA-C - Last Filed: 06/09/23 19:07> Review of Systems Narrative: See HPI Patient History <Francine Draper PA-C - Last Filed: 06/09/23 19:07> Medical History History of colonic polyps Depression, major, recurrent Cerebrovascular disease Anemia in CKD (chronic kidney disease) Stage 3b chronic kidney disease (CKD) Insulin use (long-term) in type 2 diabetes Type 2 diabetes mellitus with stage 3b chronic kidney disease Candidiasis Pneumonia ROSCOE (obstructive sleep apnea) Unilateral primary osteoarthritis, left knee Obesity (BMI 30-39.9) Acute upper GI bleed Impingement syndrome of right shoulder Sternal fracture (2014) Hyperparathyroidism (2013) History of recurrent ear infection Vertigo (2011) Shoulder pain (2014) Lumbar spine pain GERD (gastroesophageal reflux disease) Hyperlipidemia (~1997) Urinary incontinence (2012) Cataract (2010) Chicken pox Measles Hayfever (~1959) Anxiety Fractures Surgical History Status post left knee replacement Hx of bilateral cataract extraction H/O lumpectomy H/O mastectomy History of lumbar spinal fusion Anesthesia complication History of fusion of cervical spine (2011) History of lumbar spinal fusion (2009) History of knee replacement (2006) Family History Father Hypertension High cholesterol Pneumonia Mother Hypertension Mental health problem Stroke History of hip surgery Grandfather Heart disease Hypertension High cholesterol Grandmother Hypertension High cholesterol Social History marital status: details: (Stu Barth), 1 son, 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, 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 members: spouse occupational status: other Smoking Status: Never smoker alcohol intake: current substance use type: does not use Smoking Status: Never smoker alcohol intake frequency: holidays/special occasions only Substance Use Type: does not use Exam <Francine Draper PA-C - Last Filed: 06/09/23 19:07> Initial Vital Signs Initial Vital Signs: Vital Signs Temperature 98.1 F 06/09/23 14:30 Pulse Rate 71 06/09/23 14:30 Respiratory Rate 18 06/09/23 14:30 Blood Pressure 151/67 H 06/09/23 14:30 Pulse Oximetry 98 06/09/23 14:30 Oxygen Delivery Method Room Air 06/09/23 14:30 GENERAL: 77 year old patient appears stated age. Well-developed patient, in no acute distress. HEAD: Atraumatic. Normocephalic. EYES: Pupils equal round No scleral icterus. No injection or drainage. NECK: Trachea midline, supple RESPIRATORY: Speaking comfortably normal tone of voice without any increased work of breathing. EXTREMITIES: Bruising about 4 cm across on the medial aspect of right knee, 5/5 ankle dorsiflexion and plantar flexion present, posterior tibialis pulse 2 +bilaterally, no pitting edema in distal right lower extremity, she is tender to palpation over superior medial aspect of right knee just medial to patella, no patellar tenderness noted, she can not tolerate knee flexion without pain in the same location, no tenderness of tibial plateau, she has medial discomfort with valgus stress test, but joint appears stable, no tenderness with valgus stress test, unable to complete Minda's or Bertha's due to patient's tenderness to knee flexion. No lower extremity calf swelling or bruising or erythema noted NEURO: AOx3. SKIN: No rash or erythema of visible areas <Eyad Bustillos DO - Last Filed: 06/11/23 17:59> Initial Vital Signs Initial Vital Signs: Vital Signs Temperature 98.1 F 06/09/23 14:30 Pulse Rate 71 06/09/23 14:30 Respiratory Rate 18 06/09/23 14:30 Blood Pressure 151/67 H 06/09/23 14:30 Pulse Oximetry 98 06/09/23 14:30 Oxygen Delivery Method Room Air 06/09/23 14:30 Course <Francine Draper PA-C - Last Filed: 06/09/23 19:07> Orders Ordered: ED Orders 06/09/23 14:52 XR knee RT 3V Stat 06/09/23 17:13 CT LE RT wo con Stat Vital Signs Vital signs: Vital Signs - 8 hr 06/09/23 14:30 06/09/23 16:08 Temperature 98.1 F Pulse Rate 71 66 Respiratory Rate 18 16 Blood Pressure 151/67 H 150/68 H Pulse Oximetry 98 95 Oxygen Delivery Method Room Air Room Air <DO Dee George Last Filed: 06/11/23 17:59> Orders Ordered: ED Orders 06/09/23 14:52 XR knee RT 3V Stat 06/09/23 17:13 CT LE RT wo con Stat Vital Signs Vital signs: Vital Signs - 8 hr 06/09/23 14:30 06/09/23 16:08 Temperature 98.1 F Pulse Rate 71 66 Respiratory Rate 18 16 Blood Pressure 151/67 H 150/68 H Pulse Oximetry 98 95 Oxygen Delivery Method Room Air Room Air MDM - Fall <Francine Draper PA-C - Last Filed: 06/09/23 19:07> Imaging Data Rt Knee xray: Radiologist's Impression: PROCEDURE: XR KNEE RT 3V INDICATIONS: Painful right knee, difficulty flexing TECHNIQUE: 3 views of the knee were acquired. COMPARISON: [facility], SARAH, XR KNEE LT 1TO2V, 08/02/2021, 10:29. FINDINGS: Bones: There is a mildly displaced medial condylar fracture. Fracture lucency extends to the level of the arthroplasty.. No suspicious bony lesions. Knee arthroplasty. Hardware is intact without hardware fracture or periprosthetic lucency to suggest loosening. Alignment is stable. Soft tissues: Moderate joint effusion. No suspicious soft tissue calcifications. IMPRESSION: Mildly displaced medial condylar fracture with fracture lucency extending to the level of the arthroplasty. Arthroplasty appears intact. Dictated by: Maryam Barnes M.D. on 06/09/2023 at 15:50 Approved by: Maryam Barnes M.D. on 06/09/2023 at 15:51 CT Rt LE wo Contrast: Radiologist's Impression: PROCEDURE: CT LE RT WO CON INDICATIONS: Medial condyle fracture TECHNIQUE: Noncontrast 1-1.5 mm axial sections acquired from the mid-patella to the proximal tibia, with coronal and sagittal reformats. COMPARISON: [facility], SARAH, XR KNEE RT 3V, 06/09/2023, 14:57. FINDINGS: Image quality: The imaging quality on this study is highly compromised by streak artifact from the knee arthroplasty hardware. Images are provided with metal reduction algorithm, with some improvement. Bones: As previously demonstrated by plain film, there is a mildly displaced fracture seen of the medial femoral condyle of the distal femur. This can be seen on series 3, image 146 and on series 4, image 69. No definite additional fractures are seen. Soft tissues: There is a moderate joint effusion. No fat fluid level is detected. IMPRESSION: There is a fracture of the medial femoral condyle seen. There is a moderate joint effusion. Dictated by: Juan Mcintyre M.D. on 06/09/2023 at 16:57 Approved by: Juan Mcintyre M.D. on 06/09/2023 at 17:00 [facility] Narrative Medical decision making narrative: Patient is a 77-year-old female presenting for evaluation of right-sided medial knee pain after squatting on her right knee 4 days ago. Her right knee has been previously replaced in 2007 in [place]. She has multiple comorbidities including PICC line to receive ertapenem for nonhealing wounds in her left chest, HTN, HLD, type 2 diabetes. X-ray shows mildly displaced medial condylar fracture with lucency extending to the level of the arthroplasty. Arthroplasty appears intact. Ortho consultation with Dr. Bai: He requested CT without contrast of patient's right knee prior to discharge. He states she should be okay for discharge with knee immobilization and walker use. He noted that she is at risk of an avulsion of her MCL and if it of pulses completely than her right knee will become unstable. Recommend follow up with him in clinic. Review of CT right lower extremity shows no new findings other than fracture seen. Advised patient to keep knee immobilized and ambulate only with a walker and do so quite carefully. Advised her of the risk with the medial collateral ligament avulsion. I have provided within her discharge paperwork a number to follow up with Dr. Bai in office. She is agreeable with plan of care and ready to go home. We have given her a knee immobilizer and instructed her to use a walker as she has a walker at home. She may continue to use Tylenol as needed for discomfort as well as elevate her knee, and apply ice. Multiple etiologies for patient's symptoms considered including, but not limited to: Tendon tear, ligament tear, fracture, DVT Findings and discharge diagnosis discussed with patient/family followed by verbalization of understanding Return precautions discussed with patient/family whom verbalize understanding of diagnosis and plan Discharge Plan Departure Patient Disposition: Home Clinical Impression: Fracture of medial condyle of femur Qualifiers: Encounter type: initial encounter Fracture type: closed Fracture alignment: displaced Laterality: right Qualified Code(s): S72.431A - Displaced fracture of medial condyle of right femur, initial encounter for closed fracture Activity Restrictions/Additional Instructions: Thank you for coming in today for your care. You were diagnosed with a fracture of the medial condyle of your right femur. I discussed the case with Dr. Bai with [facility]. You may call for follow up with him in clinic at [phone]. You have been placed in a knee immobilizer. You may walk, but do so very carefully and only with a walker in the knee immobilizer in place. The location of this fracture puts your knee at risk of becoming unstable if the medial collateral ligament attached at this location should separate further. You may continue treatment with Tylenol. Keep your leg elevated and apply ice for comfort. It was a pleasure seeing you today. Prescriptions: No Action escitalopram oxalate [Lexapro] 10 mg tablet 10 mg PO QDAY Qty: 90 3RF Hold Instructions: med change oxycodone 5 mg tablet 5 mg PO BID PRN (Reason: pain) Qty: 30 0RF coenzyme Q10 [CoQ-10] 100 mg capsule 200 mg PO DAILY chlorthalidone 25 mg tablet 12.5 mg PO DAILY (DME) Disability Placard See Rx Instructions .Route .MEDSUPPLY Qty: 1 0RF Rx Instructions: Patient qualifies for Disability Placard (DME) pen needle, diabetic [1st Tier Unifine Pentips] 31 gauge x 5/16 needle See Dose Instructions .ROUTE .MEDSUPPLY Qty: 100 11RF Dose Instruction: As directed Rx Instructions: use to inject insulin at bedtime (DME) Blood Glucose Test Strip See Rx Instructions .ROUTE .MEDSUPPLY Qty: 200 11RF Rx Instructions: use to test blood sugar three times daily as directed carvedilol 25 mg tablet 25 mg PO BID Rx Instructions: take 1 tablet by mouth twice a day with food or with meals atorvastatin 10 mg tablet 10 mg PO DAILY gabapentin 300 mg capsule 900 mg PO BEDTIME insulin aspart U-100 [Novolog FlexPen U-100 Insulin] 100 unit/mL (3 mL) insulin pen 5 - 6 unit SUBCUT TIDWM Rx Instructions: 3 nits Eliquis 5 mg tablet 5 mg PO BID Rx Instructions: completed 10 mg bid dosing 12 w/ am dose. amlodipine 5 mg tablet 5 mg PO DAILY ertapenem 1 gram Recon Soln 1 g IM Q24H oxycodone 5 mg tablet 5 mg PO BID PRN (Reason: pain) Qty: 20 0RF escitalopram oxalate [Lexapro] 10 mg tablet 10 mg PO DAILY Qty: 30 0RF ertapenem 1 gram recon soln 1 g IM Q24H Qty: 5 0RF insulin glargine [Basaglar KwikPen U-100 Insulin] 100 unit/mL (3 mL) Insulin Pen 14 unit SUBCUT BEDTIME Januvia 50 mg tablet 50 mg PO DAILY Referrals: Butch Browning MD [Primary Care Provider] - Stand Alone Forms: Patient Portal/API ED Sign-out <Eyad Bustillos, DO - Last Filed: 06/11/23 17:59> Cosign ED Attending Cosignature Attestation: Dr Bustillos Co-Sign Statement: I was available for consultation during this patient's emergency department visit. This chart is signed by myself for administrative purposes only. I did not have direct contact with this patient during this visit. They were seen independently by the APC.
[2023-06-09 14:30] VITALS: BP 151/67; PULSE 71; RESP 18; TEMP 36.7; O2SAT 98; BMI 30.2
--- NOTE | 2023-06-09 14:37 | PC.NURSE ---
provider at bedside
--- NOTE | 2023-06-09 14:52 | DI.RAD.S_ITS ---
PROCEDURE: XR KNEE RT 3V INDICATIONS: Painful right knee, difficulty flexing TECHNIQUE: 3 views of the knee were acquired. COMPARISON: [facility], CR, XR KNEE LT 1TO2V, 08/02/2021, 10:29. FINDINGS: Bones: There is a mildly displaced medial condylar fracture. Fracture lucency extends to the level of the arthroplasty.. No suspicious bony lesions. Knee arthroplasty. Hardware is intact without hardware fracture or periprosthetic lucency to suggest loosening. Alignment is stable. Soft tissues: Moderate joint effusion. No suspicious soft tissue calcifications. IMPRESSION: Mildly displaced medial condylar fracture with fracture lucency extending to the level of the arthroplasty. Arthroplasty appears intact. Dictated by: Maryam Barnes M.D. on 06/09/2023 at 15:50 Approved by: Maryam Barnes M.D. on 06/09/2023 at 15:51
[2023-06-09 16:08] VITALS: BP 150/68; PULSE 66; RESP 16; O2SAT 95
--- NOTE | 2023-06-09 17:13 | DI.CT.S_ITS ---
PROCEDURE: CT LE RT WO CON INDICATIONS: Medial condyle fracture TECHNIQUE: Noncontrast 1-1.5 mm axial sections acquired from the mid-patella to the proximal tibia, with coronal and sagittal reformats. COMPARISON: [facility], CR, XR KNEE RT 3V, 06/09/2023, 14:57. FINDINGS: Image quality: The imaging quality on this study is highly compromised by streak artifact from the knee arthroplasty hardware. Images are provided with metal reduction algorithm, with some improvement. Bones: As previously demonstrated by plain film, there is a mildly displaced fracture seen of the medial femoral condyle of the distal femur. This can be seen on series 3, image 146 and on series 4, image 69. No definite additional fractures are seen. Soft tissues: There is a moderate joint effusion. No fat fluid level is detected. IMPRESSION: There is a fracture of the medial femoral condyle seen. There is a moderate joint effusion. Dictated by: Juan Mcintyre M.D. on 06/09/2023 at 16:57 Approved by: Juan Mcintyre M.D. on 06/09/2023 at 17:00
== END 2023-06-09 18:45 | disposition home or self-care (01) ==
PROVIDERS: Emergency Provider Physician Assistant; Family Provider Family Medicine; PCP Internal Medicine
DX: S72.431A Displaced fracture of medial condyle of right femur, initial encounter for closed fracture (principal); Z79.899 Other long term (current) drug therapy; Z79.01 Long term (current) use of anticoagulants
CPT/HCPCS: 73562; 73700; 99283; 99284

== ENCOUNTER → 2023-06-11 10:09 | Outpatient (CLI) | payer MEDICARE, OTHER, SELFPAY ==
[2023-06-05 15:47] VITALS: BMI 30.5
== END ==
LOC: WC 10:10
PROVIDERS: Family Provider Family Medicine; PCP Internal Medicine; Referring Provider Surgery; Visit Provider Surgery
DX: T81.31XA Disruption of external operation (surgical) wound, not elsewhere classified, initial encounter (principal); I26.99 Other pulmonary embolism without acute cor pulmonale; E11.22 Type 2 diabetes mellitus with diabetic chronic kidney disease; I12.9 Hypertensive chronic kidney disease with stage 1 through stage 4 chronic kidney disease, or unspecified chronic kidney disease; N18.9 Chronic kidney disease, unspecified; Z85.3 Personal history of malignant neoplasm of breast; E78.5 Hyperlipidemia, unspecified; Z92.3 Personal history of irradiation; Z90.12 Acquired absence of left breast and nipple; Z79.2 Long term (current) use of antibiotics; Z79.01 Long term (current) use of anticoagulants
CPT/HCPCS: 11042; 11045; 97605

== ENCOUNTER → 2023-06-18 11:03 | Outpatient (CLI) | payer MEDICARE, OTHER, SELFPAY ==
[2023-06-05 15:47] VITALS: BMI 30.5
== END ==
LOC: WC 11:05
PROVIDERS: Family Provider Family Medicine; PCP Internal Medicine; Referring Provider Surgery; Visit Provider Physician Assistant
DX: T81.89XA Other complications of procedures, not elsewhere classified, initial encounter (principal); S21.102A Unspecified open wound of left front wall of thorax without penetration into thoracic cavity, initial encounter
CPT/HCPCS: 97605

== ENCOUNTER → 2023-06-21 09:20 | Outpatient (CLI) | payer MEDICARE, OTHER, SELFPAY ==
[2023-06-05 15:47] VITALS: BMI 30.5
== END ==
LOC: WC 06-24 09:22
PROVIDERS: Family Provider Family Medicine; PCP Internal Medicine; Referring Provider Surgery; Visit Provider Physician Assistant
DX: T81.89XA Other complications of procedures, not elsewhere classified, initial encounter (principal); S21.102A Unspecified open wound of left front wall of thorax without penetration into thoracic cavity, initial encounter
CPT/HCPCS: 97605

== ENCOUNTER → 2023-06-25 10:15 | Outpatient (CLI) | payer MEDICARE, OTHER, SELFPAY ==
[2023-06-05 15:47] VITALS: BMI 30.5
== END ==
PROVIDERS: Family Provider Family Medicine; PCP Internal Medicine; Referring Provider Dermatology MOHS-Micrographic Surgery; Visit Provider Surgery
DX: E11.628 Type 2 diabetes mellitus with other skin complications (principal); T81.31XA Disruption of external operation (surgical) wound, not elsewhere classified, initial encounter; S21.202A Unspecified open wound of left back wall of thorax without penetration into thoracic cavity, initial encounter; Z85.3 Personal history of malignant neoplasm of breast; Z92.3 Personal history of irradiation; I26.99 Other pulmonary embolism without acute cor pulmonale; Z79.899 Other long term (current) drug therapy; I10 Essential (primary) hypertension
CPT/HCPCS: 11042; 36415; 80053; 85025; 97605; 99212; 99213

== ENCOUNTER → 2023-06-25 11:21 | Outpatient (CLI) | payer MEDICARE, OTHER, SELFPAY ==
[2023-06-05 15:47] VITALS: BMI 30.5
[2023-06-25 12:43] LABS: Add Manual Diff / Slide Review NO; Basophils Absolute Auto 100 /uL (0-100); Basophils Percent Auto 1.2 % (0-2); Eosinophils Absolute Auto 400 /uL (0-450); Eosinophils Percent Auto 5.5 % (2-4); Hematocrit 27.9 % (36-46); Hemoglobin 9.2 g/dL (12.0-16.0); Lymphocytes Absolute Auto 900 /uL (1100-4500); Lymphocytes Percent Auto 12.4 % (25-40); Mean Corpuscular HGB Conc 32.9 % (30-36); Mean Corpuscular Hemoglobin 27.6 PG (26-34); Mean Corpuscular Volume 84.1 fL (80-100); Monocytes Absolute Auto 700 /uL (0-900); Monocytes Percent Auto 9.6 % (3-14); Neutrophils Absolute Auto 5000 /uL (1500-7000); Neutrophils Percent Auto 71.3 % (50-75); Platelet Count 401 X10^3/uL (150-400); Red Blood Cell Count 3.32 X10^6/uL (4.0-5.2); Red Cell Distribution Width 17.1 % (11.6-14.8)
[2023-06-25 13:36] LABS: Alanine Aminotransferase 13 IU/L (<35); Albumin 3.3 g/dL (3.5-5.0); Alkaline Phosphatase 139 U/L (38-126); Aspartate Aminotransferase 21 IU/L (14-36); BUN Creatinine Ratio 26.4 (6-22); Bilirubin Total 0.4 mg/dL (0.2-1.3); Blood Urea Nitrogen 33 mg/dL (7-17); Calcium 9.5 mg/dL (8.4-10.2); Carbon Dioxide 26 mmol/L (22-32); Chloride 100 mmol/L (98-107); Estimated Glomerular Filt Rate 44 mL/min (>60); Globulin 3.2 g/dL (1.7-4.1); Glucose 128 mg/dL (80-110); HEMOLYSIS < 15 (0-50); Sodium 136 mmol/L (137-145); Total Protein 6.5 g/dL (6.3-8.2)
== END ==
PROVIDERS: Family Provider Family Medicine; PCP Internal Medicine; Referring Provider Physician Assistant; Visit Provider Physician Assistant
DX: N18.32 Chronic kidney disease, stage 3b (principal); D63.1 Anemia in chronic kidney disease
CPT/HCPCS: 36415; 80053; 85025

== ENCOUNTER → 2023-07-02 10:14 | Outpatient (CLI) | payer MEDICARE, OTHER, SELFPAY ==
[2023-06-05 15:47] VITALS: BMI 30.5
== END ==
LOC: WC 10:15
PROVIDERS: Family Provider Family Medicine; PCP Internal Medicine; Referring Provider Surgery; Visit Provider Surgery
DX: E11.628 Type 2 diabetes mellitus with other skin complications (principal); T81.31XA Disruption of external operation (surgical) wound, not elsewhere classified, initial encounter; S21.102A Unspecified open wound of left front wall of thorax without penetration into thoracic cavity, initial encounter; L59.8 Other specified disorders of the skin and subcutaneous tissue related to radiation; Z85.3 Personal history of malignant neoplasm of breast; I26.99 Other pulmonary embolism without acute cor pulmonale; I10 Essential (primary) hypertension; E78.5 Hyperlipidemia, unspecified; N18.9 Chronic kidney disease, unspecified; D64.9 Anemia, unspecified
CPT/HCPCS: 11042; 97605; 99213

== ENCOUNTER → 2023-07-08 16:04 | Outpatient (CLI) | payer MEDICARE, OTHER, SELFPAY ==
[2023-06-05 15:47] VITALS: BMI 30.5
--- NOTE | 2023-07-08 16:06 | DI.RAD.S_ITS ---
PROCEDURE: XR CHEST 2V INDICATIONS: evaluate for safety of HBO treatment TECHNIQUE: 2 views of the chest were acquired. COMPARISON: [facility], CR, XR CHEST 2V, 08/08/2022, 13:36. [facility], CR, XR CHEST 1V, 06/13/2022, 16:32. FINDINGS: Surgical changes and devices: Left axillary surgical clips and ACDF. Partially visualized surgical fusion hardware of the lumbar spine. Lungs and pleura: Lungs are clear. No pleural effusions or pneumothorax. Left lung calcifications. Mediastinum: Mediastinal contours are normal. Heart size is normal. Bones and chest wall: No suspicious bony abnormalities. Soft tissues appear unremarkable. IMPRESSION: No acute cardiopulmonary abnormality is seen. Dictated by: Sam Jarvis M.D. on 07/08/2023 at 16:56 Approved by: Sam Jarvis M.D. on 07/08/2023 at 16:56
[2023-07-08 18:00] LABS: Hemoglobin A1C% w Est Avg Glu 6.6 % (4.0-6.0)
[2023-07-08 18:14] LABS: BUN Creatinine Ratio 37.3 (6-22); Blood Urea Nitrogen 60 mg/dL (7-17); Calcium 9.4 mg/dL (8.4-10.2); Carbon Dioxide 24 mmol/L (22-32); Chloride 103 mmol/L (98-107); Estimated Glomerular Filt Rate 33 mL/min (>60); Glucose 236 mg/dL (80-110); HEMOLYSIS < 15 (0-50); Potassium 3.1 mmol/L (3.4-5.1); Sodium 139 mmol/L (137-145)
== END ==
PROVIDERS: Family Provider Family Medicine; PCP Internal Medicine; Referring Provider Internal Medicine; Visit Provider Internal Medicine
DX: L59.8 Other specified disorders of the skin and subcutaneous tissue related to radiation (principal); E11.22 Type 2 diabetes mellitus with diabetic chronic kidney disease; N18.9 Chronic kidney disease, unspecified; D63.1 Anemia in chronic kidney disease; N18.32 Chronic kidney disease, stage 3b
CPT/HCPCS: 36415; 71046; 80048; 83036

== ENCOUNTER → 2023-07-09 10:06 | Outpatient (CLI) | payer MEDICARE, OTHER, SELFPAY ==
[2023-06-05 15:47] VITALS: BMI 30.5
== END ==
LOC: WC 10:13
PROVIDERS: Family Provider Family Medicine; PCP Internal Medicine; Referring Provider Surgery; Visit Provider Surgery
DX: T81.31XA Disruption of external operation (surgical) wound, not elsewhere classified, initial encounter (principal); L59.8 Other specified disorders of the skin and subcutaneous tissue related to radiation; E11.628 Type 2 diabetes mellitus with other skin complications; I10 Essential (primary) hypertension; I26.99 Other pulmonary embolism without acute cor pulmonale; D64.9 Anemia, unspecified; Z79.01 Long term (current) use of anticoagulants
CPT/HCPCS: 11042; 97605

== ENCOUNTER → 2023-07-16 09:56 | Outpatient (CLI) | payer MEDICARE, OTHER, SELFPAY ==
[2023-06-05 15:47] VITALS: BMI 30.5
[2023-07-16 11:36] LABS: Microalbumi Creatinin Ratio Ur 19.2 ug/mg CR (<30); Microalbumin Urine Random 1.1 mg/dL (0-1.6)
== END ==
PROVIDERS: Family Provider Family Medicine; PCP Internal Medicine; Referring Provider Internal Medicine; Visit Provider Internal Medicine
DX: E11.22 Type 2 diabetes mellitus with diabetic chronic kidney disease (principal); N18.9 Chronic kidney disease, unspecified; D63.1 Anemia in chronic kidney disease; N18.32 Chronic kidney disease, stage 3b
CPT/HCPCS: 82043; 82570

== ENCOUNTER → 2023-07-16 11:32 | Outpatient (CLI) | payer MEDICARE, OTHER, SELFPAY ==
[2023-06-05 15:47] VITALS: BMI 30.5
== END ==
PROVIDERS: Family Provider Family Medicine; PCP Internal Medicine; Referring Provider Surgery; Visit Provider Surgery
DX: T81.31XA Disruption of external operation (surgical) wound, not elsewhere classified, initial encounter (principal); L59.8 Other specified disorders of the skin and subcutaneous tissue related to radiation; Z85.3 Personal history of malignant neoplasm of breast; Z92.3 Personal history of irradiation; Z90.12 Acquired absence of left breast and nipple; E11.22 Type 2 diabetes mellitus with diabetic chronic kidney disease; I12.9 Hypertensive chronic kidney disease with stage 1 through stage 4 chronic kidney disease, or unspecified chronic kidney disease; N18.9 Chronic kidney disease, unspecified; E78.5 Hyperlipidemia, unspecified; D64.9 Anemia, unspecified; E66.9 Obesity, unspecified; Z68.30 Body mass index [BMI] 30.0-30.9, adult; Z86.711 Personal history of pulmonary embolism; Z79.01 Long term (current) use of anticoagulants
CPT/HCPCS: 11042; 82043; 82570; 97605

== ENCOUNTER → 2023-07-19 12:09 | Outpatient (CLI) | payer MEDICARE, OTHER, SELFPAY ==
[2023-06-05 15:47] VITALS: BMI 30.5
== END ==
LOC: WC 07-29 12:10
PROVIDERS: Family Provider Family Medicine; PCP Internal Medicine; Referring Provider Internal Medicine; Visit Provider Physician Assistant
DX: T81.31XA Disruption of external operation (surgical) wound, not elsewhere classified, initial encounter (principal); S21.102A Unspecified open wound of left front wall of thorax without penetration into thoracic cavity, initial encounter; L59.8 Other specified disorders of the skin and subcutaneous tissue related to radiation
CPT/HCPCS: 97605

== ENCOUNTER → 2023-07-23 10:26 | Outpatient (CLI) | payer MEDICARE, OTHER, SELFPAY ==
[2023-06-05 15:47] VITALS: BMI 30.5
== END ==
LOC: WC 10:27
PROVIDERS: Family Provider Family Medicine; PCP Internal Medicine; Referring Provider Internal Medicine; Visit Provider Surgery
DX: T81.31XA Disruption of external operation (surgical) wound, not elsewhere classified, initial encounter (principal); L59.8 Other specified disorders of the skin and subcutaneous tissue related to radiation; L53.9 Erythematous condition, unspecified; E11.628 Type 2 diabetes mellitus with other skin complications; I10 Essential (primary) hypertension; Z79.01 Long term (current) use of anticoagulants
CPT/HCPCS: 11042; 97605; 99212; 99213

== ENCOUNTER → 2023-07-29 10:26 | Outpatient (CLI) | payer MEDICARE, OTHER, SELFPAY ==
[2023-06-05 15:47] VITALS: BMI 30.5
== END ==
LOC: WC 10:43
PROVIDERS: Family Provider Family Medicine; PCP Internal Medicine; Referring Provider Surgery; Visit Provider Surgery
DX: Z92.3 Personal history of irradiation (principal); Z85.3 Personal history of malignant neoplasm of breast; L59.8 Other specified disorders of the skin and subcutaneous tissue related to radiation; T81.31XA Disruption of external operation (surgical) wound, not elsewhere classified, initial encounter; S21.102A Unspecified open wound of left front wall of thorax without penetration into thoracic cavity, initial encounter; E11.628 Type 2 diabetes mellitus with other skin complications; I10 Essential (primary) hypertension; E78.5 Hyperlipidemia, unspecified; D64.9 Anemia, unspecified; N18.9 Chronic kidney disease, unspecified; Z79.01 Long term (current) use of anticoagulants
CPT/HCPCS: 11042; 97605; 99183; G0277

== ENCOUNTER → 2023-07-30 10:03 | Outpatient (CLI) | payer MEDICARE, OTHER, SELFPAY ==
[2023-06-05 15:47] VITALS: BMI 30.5
== END ==
LOC: WC 10:04
PROVIDERS: Family Provider Family Medicine; PCP Internal Medicine; Referring Provider Surgery; Visit Provider Surgery
DX: S21.102D Unspecified open wound of left front wall of thorax without penetration into thoracic cavity, subsequent encounter (principal); T81.31XD Disruption of external operation (surgical) wound, not elsewhere classified, subsequent encounter; L59.8 Other specified disorders of the skin and subcutaneous tissue related to radiation
CPT/HCPCS: 99183; G0277

== ENCOUNTER → 2023-07-31 11:44 | Outpatient (CLI) | payer MEDICARE, OTHER, SELFPAY ==
[2023-06-05 15:47] VITALS: BMI 30.5
== END ==
LOC: WC 11:45
PROVIDERS: Family Provider Family Medicine; PCP Internal Medicine; Referring Provider Surgery; Visit Provider Surgery
DX: S21.102D Unspecified open wound of left front wall of thorax without penetration into thoracic cavity, subsequent encounter (principal); T81.31XD Disruption of external operation (surgical) wound, not elsewhere classified, subsequent encounter; L59.8 Other specified disorders of the skin and subcutaneous tissue related to radiation
CPT/HCPCS: 99183; G0277

== ENCOUNTER → 2023-08-06 14:36 | Outpatient (CLI) | payer MEDICARE, OTHER, SELFPAY ==
[2023-06-05 15:47] VITALS: BMI 30.5
== END ==
LOC: WC 14:38
PROVIDERS: Family Provider Family Medicine; PCP Internal Medicine; Referring Provider Surgery; Visit Provider Physician Assistant
DX: L59.8 Other specified disorders of the skin and subcutaneous tissue related to radiation (principal); Z16.24 Resistance to multiple antibiotics; Z92.3 Personal history of irradiation; Z85.3 Personal history of malignant neoplasm of breast; T81.31XA Disruption of external operation (surgical) wound, not elsewhere classified, initial encounter; S21.102A Unspecified open wound of left front wall of thorax without penetration into thoracic cavity, initial encounter
CPT/HCPCS: 97605; 99183; G0277

== ENCOUNTER → 2023-08-07 10:36 | Outpatient (CLI) | payer MEDICARE, OTHER, SELFPAY ==
[2023-06-05 15:47] VITALS: BMI 30.5
== END ==
LOC: WC 10:37
PROVIDERS: Family Provider Family Medicine; PCP Internal Medicine; Referring Provider Surgery; Visit Provider Nurse Practitioner Family
DX: L59.8 Other specified disorders of the skin and subcutaneous tissue related to radiation (principal); I26.99 Other pulmonary embolism without acute cor pulmonale; M95.4 Acquired deformity of chest and rib; Z85.3 Personal history of malignant neoplasm of breast; Z92.3 Personal history of irradiation; Z16.24 Resistance to multiple antibiotics
CPT/HCPCS: 99183; G0277

== ENCOUNTER → 2023-08-08 10:04 | Outpatient (CLI) | payer MEDICARE, OTHER, SELFPAY ==
[2023-06-05 15:47] VITALS: BMI 30.5
== END ==
LOC: WC 10:05
PROVIDERS: Family Provider Family Medicine; PCP Internal Medicine; Referring Provider Surgery; Visit Provider Nurse Practitioner Family
DX: M95.4 Acquired deformity of chest and rib (principal); Z16.24 Resistance to multiple antibiotics; Z92.3 Personal history of irradiation; Z85.3 Personal history of malignant neoplasm of breast; I26.99 Other pulmonary embolism without acute cor pulmonale; S21.102D Unspecified open wound of left front wall of thorax without penetration into thoracic cavity, subsequent encounter; T81.31XD Disruption of external operation (surgical) wound, not elsewhere classified, subsequent encounter; L59.8 Other specified disorders of the skin and subcutaneous tissue related to radiation; T81.31XA Disruption of external operation (surgical) wound, not elsewhere classified, initial encounter; E11.628 Type 2 diabetes mellitus with other skin complications; Z79.01 Long term (current) use of anticoagulants; S21.102A Unspecified open wound of left front wall of thorax without penetration into thoracic cavity, initial encounter; L98.8 Other specified disorders of the skin and subcutaneous tissue
CPT/HCPCS: 97597; 97605; 99183; 99214; G0277

== ENCOUNTER → 2023-08-12 15:28 | Outpatient (CLI) | payer MEDICARE, OTHER, SELFPAY ==
[2023-06-05 15:47] VITALS: BMI 30.5
== END ==
LOC: WC 15:29
PROVIDERS: Family Provider Family Medicine; PCP Internal Medicine; Referring Provider Surgery; Visit Provider Surgery
DX: T81.31XA Disruption of external operation (surgical) wound, not elsewhere classified, initial encounter (principal); S21.102A Unspecified open wound of left front wall of thorax without penetration into thoracic cavity, initial encounter; L59.8 Other specified disorders of the skin and subcutaneous tissue related to radiation; Z79.01 Long term (current) use of anticoagulants; E11.628 Type 2 diabetes mellitus with other skin complications
CPT/HCPCS: 11042; 97605

== ENCOUNTER → 2023-08-27 13:31 | Outpatient (CLI) | payer MEDICARE, OTHER, SELFPAY ==
[2023-06-05 15:47] VITALS: BMI 30.5
== END ==
LOC: WC 13:32
PROVIDERS: Family Provider Family Medicine; PCP Internal Medicine; Referring Provider Surgery; Visit Provider Surgery
DX: E11.628 Type 2 diabetes mellitus with other skin complications (principal); T81.31XA Disruption of external operation (surgical) wound, not elsewhere classified, initial encounter; L59.8 Other specified disorders of the skin and subcutaneous tissue related to radiation; Z92.3 Personal history of irradiation; Z79.01 Long term (current) use of anticoagulants; I10 Essential (primary) hypertension; E78.5 Hyperlipidemia, unspecified; D64.9 Anemia, unspecified
CPT/HCPCS: 11042; 97605; 99212; 99213

== ENCOUNTER → 2023-09-02 14:23 | Outpatient (CLI) | payer MEDICARE, OTHER, SELFPAY ==
[2023-06-05 15:47] VITALS: BMI 30.5
== END ==
LOC: WC 14:31
PROVIDERS: Family Provider Family Medicine; PCP Internal Medicine; Referring Provider Surgery; Visit Provider Surgery
DX: Z16.24 Resistance to multiple antibiotics (principal); Z92.3 Personal history of irradiation; Z85.3 Personal history of malignant neoplasm of breast; M95.4 Acquired deformity of chest and rib; I26.99 Other pulmonary embolism without acute cor pulmonale; S21.102D Unspecified open wound of left front wall of thorax without penetration into thoracic cavity, subsequent encounter; T81.31XD Disruption of external operation (surgical) wound, not elsewhere classified, subsequent encounter
CPT/HCPCS: 99183; G0277

== ENCOUNTER → 2023-09-03 13:47 | Outpatient (CLI) | payer MEDICARE, OTHER, SELFPAY ==
[2023-06-05 15:47] VITALS: BMI 30.5
== END ==
LOC: WC 13:48
PROVIDERS: Family Provider Family Medicine; PCP Internal Medicine; Referring Provider Surgery; Visit Provider Surgery
DX: M95.4 Acquired deformity of chest and rib (principal); Z16.24 Resistance to multiple antibiotics; Z92.3 Personal history of irradiation; Z85.3 Personal history of malignant neoplasm of breast; I26.99 Other pulmonary embolism without acute cor pulmonale; S21.102D Unspecified open wound of left front wall of thorax without penetration into thoracic cavity, subsequent encounter; T81.31XD Disruption of external operation (surgical) wound, not elsewhere classified, subsequent encounter; L59.8 Other specified disorders of the skin and subcutaneous tissue related to radiation
CPT/HCPCS: 11042; 97605; 99183; G0277

== ENCOUNTER → 2023-09-04 10:27 | Outpatient (CLI) | payer MEDICARE, OTHER, SELFPAY ==
[2023-06-05 15:47] VITALS: BMI 30.5
== END ==
LOC: WC 10:28
PROVIDERS: Family Provider Family Medicine; PCP Internal Medicine; Referring Provider Surgery; Visit Provider Surgery
DX: I26.99 Other pulmonary embolism without acute cor pulmonale (principal); Z16.24 Resistance to multiple antibiotics; Z92.3 Personal history of irradiation; Z85.3 Personal history of malignant neoplasm of breast; M95.4 Acquired deformity of chest and rib; S21.102D Unspecified open wound of left front wall of thorax without penetration into thoracic cavity, subsequent encounter; T81.31XD Disruption of external operation (surgical) wound, not elsewhere classified, subsequent encounter; L59.8 Other specified disorders of the skin and subcutaneous tissue related to radiation
CPT/HCPCS: 99183; G0277

== ENCOUNTER → 2023-09-05 13:23 | Outpatient (CLI) | payer MEDICARE, OTHER, SELFPAY ==
[2023-06-05 15:47] VITALS: BMI 30.5
== END ==
LOC: WC 13:23
PROVIDERS: Family Provider Family Medicine; PCP Internal Medicine; Referring Provider Surgery; Visit Provider Surgery
DX: I26.99 Other pulmonary embolism without acute cor pulmonale (principal); Z16.24 Resistance to multiple antibiotics; Z92.3 Personal history of irradiation; Z85.3 Personal history of malignant neoplasm of breast; M95.4 Acquired deformity of chest and rib; S21.102D Unspecified open wound of left front wall of thorax without penetration into thoracic cavity, subsequent encounter; T81.31XD Disruption of external operation (surgical) wound, not elsewhere classified, subsequent encounter; L59.8 Other specified disorders of the skin and subcutaneous tissue related to radiation
CPT/HCPCS: 99183; G0277

== ENCOUNTER → 2023-09-09 09:04 | Outpatient (CLI) | payer MEDICARE, OTHER, SELFPAY ==
[2023-09-05 15:41] VITALS: BMI 30.5
== END ==
LOC: WC 09-11 11:16
PROVIDERS: Family Provider Family Medicine; PCP Internal Medicine; Referring Provider Surgery; Visit Provider Surgery
DX: M95.4 Acquired deformity of chest and rib (principal); Z16.24 Resistance to multiple antibiotics; Z92.3 Personal history of irradiation; Z85.3 Personal history of malignant neoplasm of breast; I26.99 Other pulmonary embolism without acute cor pulmonale; S21.102D Unspecified open wound of left front wall of thorax without penetration into thoracic cavity, subsequent encounter; T81.31XD Disruption of external operation (surgical) wound, not elsewhere classified, subsequent encounter; L59.8 Other specified disorders of the skin and subcutaneous tissue related to radiation
CPT/HCPCS: 99183; 99212; G0277

== ENCOUNTER → 2023-09-10 13:39 | Outpatient (CLI) | payer MEDICARE, OTHER, SELFPAY ==
[2023-09-05 15:41] VITALS: BMI 30.5
== END ==
LOC: WC 13:40
PROVIDERS: Family Provider Family Medicine; PCP Internal Medicine; Referring Provider Surgery; Visit Provider Surgery
DX: Z92.3 Personal history of irradiation (principal); Z16.24 Resistance to multiple antibiotics; Z85.3 Personal history of malignant neoplasm of breast; M95.4 Acquired deformity of chest and rib; I26.99 Other pulmonary embolism without acute cor pulmonale; S21.102D Unspecified open wound of left front wall of thorax without penetration into thoracic cavity, subsequent encounter; T81.31XD Disruption of external operation (surgical) wound, not elsewhere classified, subsequent encounter; L59.8 Other specified disorders of the skin and subcutaneous tissue related to radiation
CPT/HCPCS: 99183; G0277

== ENCOUNTER → 2023-09-11 09:18 | Outpatient (CLI) | payer MEDICARE, OTHER, SELFPAY ==
[2023-09-05 15:41] VITALS: BMI 30.5
== END ==
LOC: WC 09:21
PROVIDERS: Family Provider Family Medicine; PCP Internal Medicine; Referring Provider Surgery; Visit Provider Surgery
DX: Z16.24 Resistance to multiple antibiotics (principal); Z92.3 Personal history of irradiation; Z85.3 Personal history of malignant neoplasm of breast; M95.4 Acquired deformity of chest and rib; I26.99 Other pulmonary embolism without acute cor pulmonale; S21.102D Unspecified open wound of left front wall of thorax without penetration into thoracic cavity, subsequent encounter; T81.31XD Disruption of external operation (surgical) wound, not elsewhere classified, subsequent encounter; L59.8 Other specified disorders of the skin and subcutaneous tissue related to radiation
CPT/HCPCS: 99183; G0277

== ENCOUNTER → 2023-09-12 12:51 | Outpatient (CLI) | payer MEDICARE, OTHER, SELFPAY ==
[2023-09-05 15:41] VITALS: BMI 30.5
== END ==
LOC: WC 12:52
PROVIDERS: Family Provider Family Medicine; PCP Internal Medicine; Referring Provider Surgery; Visit Provider Surgery
DX: Z16.24 Resistance to multiple antibiotics (principal); Z92.3 Personal history of irradiation; Z85.3 Personal history of malignant neoplasm of breast; M95.4 Acquired deformity of chest and rib; I26.99 Other pulmonary embolism without acute cor pulmonale; S21.102D Unspecified open wound of left front wall of thorax without penetration into thoracic cavity, subsequent encounter; T81.31XD Disruption of external operation (surgical) wound, not elsewhere classified, subsequent encounter; L59.8 Other specified disorders of the skin and subcutaneous tissue related to radiation
CPT/HCPCS: 11042; 99183; G0277

== ENCOUNTER → 2023-09-13 10:56 | Outpatient (CLI) | payer MEDICARE, OTHER, SELFPAY ==
[2023-09-05 15:41] VITALS: BMI 30.5
[2023-09-19 11:04] LABS: Add Manual Diff / Slide Review NO; Basophils Absolute Auto 100 /uL (0-100); Basophils Percent Auto 0.9 % (0-2); Eosinophils Absolute Auto 200 /uL (0-450); Hematocrit 28.8 % (36-46); Hemoglobin 9.5 g/dL (12.0-16.0); Lymphocytes Absolute Auto 600 /uL (1100-4500); Lymphocytes Percent Auto 7.5 % (25-40); Mean Corpuscular HGB Conc 32.8 % (30-36); Mean Corpuscular Volume 82.4 fL (80-100); Monocytes Absolute Auto 600 /uL (0-900); Monocytes Percent Auto 7.8 % (3-14); Neutrophils Absolute Auto 6800 /uL (1500-7000); Neutrophils Percent Auto 81.8 % (50-75); Platelet Count 358 X10^3/uL (150-400); Red Cell Distribution Width 19.3 % (11.6-14.8); White Blood Cell Count 8.4 X10^3/uL (4.5-11.0)
[2023-09-19 11:12] LABS: Alanine Aminotransferase 14 IU/L (<35); Albumin 3.9 g/dL (3.5-5.0); Albumin Globulin Ratio 1.1 (1.0-2.8); Alkaline Phosphatase 94 U/L (38-126); Aspartate Aminotransferase 22 IU/L (14-36); BUN Creatinine Ratio 21.8 (6-22); Bilirubin Total 0.5 mg/dL (0.2-1.3); Blood Urea Nitrogen 32 mg/dL (7-17); C-Reactive Protein Quant 2.9 mg/dL (<1.0); Calcium 9.2 mg/dL (8.4-10.2); Carbon Dioxide 33 mmol/L (22-32); Chloride 102 mmol/L (98-107); Creatine Kinase 59 U/L (30-135); Estimated Glomerular Filt Rate 37 mL/min (>60); Globulin 3.4 g/dL (1.7-4.1); Glucose 214 mg/dL (80-110); HEMOLYSIS < 15 (0-50); Potassium 3.7 mmol/L (3.4-5.1); Sodium 139 mmol/L (137-145); Total Protein 7.3 g/dL (6.3-8.2)
== END ==
PROVIDERS: Family Provider Family Medicine; PCP Internal Medicine; Referring Provider Surgery; Visit Provider Physician Assistant
DX: Z16.24 Resistance to multiple antibiotics (principal); Z92.3 Personal history of irradiation; Z85.3 Personal history of malignant neoplasm of breast; M95.4 Acquired deformity of chest and rib; I26.99 Other pulmonary embolism without acute cor pulmonale; S21.102D Unspecified open wound of left front wall of thorax without penetration into thoracic cavity, subsequent encounter; T81.31XD Disruption of external operation (surgical) wound, not elsewhere classified, subsequent encounter; L59.8 Other specified disorders of the skin and subcutaneous tissue related to radiation
CPT/HCPCS: 80053; 82550; 85025; 86140; 99183; G0277

== ENCOUNTER → 2024-02-21 07:49 | Outpatient (CLI) | payer MEDICARE, OTHER, SELFPAY ==
[2023-09-05 15:41] VITALS: BMI 30.5
--- NOTE | 2024-02-21 07:51 | DI.MRI.S_ITS ---
PROCEDURE: MR CERVICAL SPINE WO CON INDICATIONS: SPINAL STENOSIS TECHNIQUE: Noncontrast sagittal T1 spin echo and T2 fast spin echo, sagittal STIR, foraminal oblique sagittal T2 fast spin echo, and axial gradient echo or T2 fast spin echo through the cervical spine. COMPARISON: [facility], MR, MR CERVICAL SPINE WO CON, 02/15/2020, 7:02. FINDINGS: Image quality: Diagnostic. Post ACDF changes are noted in cervical spine with susceptibility artifacts partially limits evaluation. Alignment and Curvature: There is straightening of normal cervical lordosis not significantly changed from previous study. 2 mm retrolisthesis of C4 on C5 is seen. Post ACDF changes are noted at C5 through C7 levels. There is partial bony union at C5-6 level and near complete bony union at C6-7 level. Bone Marrow: There is marrow edema involving C4 vertebral body without discrete fracture line. No gross bony erosive changes. Similar marrow edema in C5 vertebral body is likely present with questionable erosive changes involving superior endplate of C5. No other area of marrow edema is seen. Spinal Cord: Visualized spinal cord has normal signal. No cerebellar tonsillar herniation. Paraspinous Soft Tissues: No paravertebral masses. There is prevertebral soft tissue edema and swelling along anterior aspect of C4 and C5 vertebral bodies. C2-C3: Normal appearance. C3-C4: Disc desiccation. There is no significant central canal stenosis or neural foraminal narrowing. C4-C5: There is fluid signal within C4-5 intervertebral space. Loss of disc height and central disc herniation is seen. Superimposed broad-based disc bulge and bilateral uncovertebral hypertrophic changes also noted. There is moderate to severe central canal stenosis and moderate to severe right-sided neural foraminal narrowing. C5-C6: Postsurgical changes. Bilateral uncovertebral hypertrophic changes are noted. Mild left-sided neural foraminal narrowing is seen. C6-C7: Postsurgical changes. No significant central canal stenosis or neural foraminal narrowing. C7-T1: Normal appearance. IMPRESSION: 1. Prior ACDF at C5 through C7 levels. Susceptibility artifacts are seen. No gross acute fracture or dislocation is seen in cervical spine. 2. Extensive marrow edema involving C4 and C5 vertebral bodies with loss of intervertebral disc space, fluid signal within intervertebral disc space and questionable superior endplate erosive changes at C5 concerning for discitis, suggest clinical correlation. Adjacent prevertebral soft tissue swelling at this level is also noted. 3. Broad-based disc bulge and superimposed central disc herniation at C4-5 level causing moderate to severe central canal stenosis and moderate to severe right-sided neural foraminal narrowing. 4. Mild degenerative disc disease throughout rest of the cervical spine as described above. Dictated by: Adrian Nassar M.D. on 02/21/2024 at 9:39 Approved by: Adrian Nassar M.D. on 02/21/2024 at 12:09
== END ==
PROVIDERS: Family Provider Family Medicine; PCP Internal Medicine; Referring Provider Physical Medicine & Rehabilitation; Visit Provider Physical Medicine & Rehabilitation
DX: M48.02 Spinal stenosis, cervical region (principal); M50.321 Other cervical disc degeneration at C4-C5 level; M50.221 Other cervical disc displacement at C4-C5 level; Z98.1 Arthrodesis status
CPT/HCPCS: 72141

== ENCOUNTER → 2024-02-27 12:19 | Outpatient (CLI) | payer MEDICARE, OTHER, SELFPAY ==
[2023-09-05 15:41] VITALS: BMI 30.5
--- NOTE | 2024-02-27 12:21 | EKG_ITS ---
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
== END ==
PROVIDERS: Family Provider Family Medicine; PCP Internal Medicine; Referring Provider Orthopaedic Surgery Orthopaedic Surgery of the Spine; Visit Provider Orthopaedic Surgery Orthopaedic Surgery of the Spine
DX: Z01.818 Encounter for other preprocedural examination (principal)
CPT/HCPCS: 93005; 93010

== ENCOUNTER 2024-03-11 06:16 | Inpatient (IN) | payer MEDICARE, OTHER, SELFPAY ==
[2023-09-05 15:41] VITALS: BMI 30.5
[2024-03-06 10:41] VITALS: BMI 32.5
[2024-03-11] VITALS (14 sets, daily range): BP systolic 118–169; BP diastolic 52–72; PULSE 62–81; RESP 12–24; TEMP 36.1–36.6; O2SAT 93–99; BMI 33.0
--- NOTE | 2024-03-11 | DI.RAD.S_ITS ---
PROCEDURE: XR CERVICAL SPINE 2V OR 3V INDICATIONS: ACDF C4-5 TECHNIQUE: 2 view(s) of the cervical spine were acquired. COMPARISON: None. FINDINGS: Two intraoperative fluoroscopic images demonstrate C4-C5 ACDF. No evidence of hardware complication. IMPRESSION: C4-C5 ACDF intraoperative fluoroscopic images. Please see separately dictated operative report for full details. Approved by: Bina Youngblood M.D.,Ph.D. on 03/11/2024 at 23:59
[2024-03-11] MEDS: LACTATED RINGERS 1,000 ML 42 ML IV (06:45)
--- NOTE | 2024-03-11 07:18 | SUR.OPER ---
Supine on padded OR bed, head on gel donut, arms padded and tucked at sides, legs uncrossed, safety belt at thigh, tape over blanket over lower legs .
--- NOTE | 2024-03-11 07:27 | P.HP_ITS ---
History of Present Illness History of Present Illness Chief complaint: ACDF [facility] Medical History (Updated 03/06/24 @ 10:58 by Susi Pickard RN) MRSA (methicillin resistant staph aureus) culture positive Breast cancer HTN (hypertension) Age-related osteoporosis without current pathological fracture History of colonic polyps Depression, major, recurrent Cerebrovascular disease Anemia in CKD (chronic kidney disease) Stage 3b chronic kidney disease (CKD) Insulin use (long-term) in type 2 diabetes Type 2 diabetes mellitus with stage 3b chronic kidney disease Candidiasis Pneumonia ROSCOE (obstructive sleep apnea) Unilateral primary osteoarthritis, left knee Obesity (BMI 30-39.9) Acute upper GI bleed Impingement syndrome of right shoulder Sternal fracture (2014) Hyperparathyroidism (2013) History of recurrent ear infection Vertigo (2011) Shoulder pain (2014) Lumbar spine pain GERD (gastroesophageal reflux disease) Hyperlipidemia (~1997) Urinary incontinence (2012) Cataract (2010) Chicken pox Measles Hayfever (~1959) Anxiety Fractures Surgical History (Updated 03/06/24 @ 11:01 by Susi Pickard RN) S/P debridement H/O breast reconstruction Status post left knee replacement Hx of bilateral cataract extraction H/O lumpectomy H/O mastectomy History of lumbar spinal fusion Anesthesia complication History of fusion of cervical spine (2011) History of lumbar spinal fusion (2009) History of knee replacement (2006) Family History Father Hypertension High cholesterol Pneumonia Mother Hypertension Mental health problem Stroke History of hip surgery Grandfather Heart disease Hypertension High cholesterol Grandmother Hypertension High cholesterol Social History marital status: details: (Stu Barth), 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, 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, 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 members: spouse occupational status: other Smoking Status: Never smoker alcohol intake: current substance use type: does not use Meds Home Medications and Allergies Home Medications Medication Instructions Recorded Confirmed Type pen needle, diabetic 31 gauge x #100 ea 03/03/18 03/05/24 Rx 5/16 (1st Tier Unifine Pentips) insulin glargine 100 unit/mL (3 14 unit SUBCUT BEDTIME 06/14/20 03/11/24 History mL) subcutaneous pen (Basaglar KwikPen U-100 Insulin) coenzyme Q10 100 mg capsule 200 mg PO DAILY 09/29/20 03/11/24 History (CoQ-10) sitagliptin phosphate 50 mg tablet 50 mg PO DAILY 02/27/23 03/11/24 History (Januvia) amlodipine 5 mg tablet 5 mg PO DAILY #90 tabs 07/08/23 03/11/24 Rx blood sugar diagnostic (Blood #50 ea 07/08/23 03/05/24 Rx Glucose Test strips) chlorthalidone 25 mg tablet 12.5 mg (1/2 x 25 mg) PO DAILY #45 07/08/23 03/11/24 Rx tabs glimepiride 4 mg tablet 8 mg PO QPM 10/07/23 03/11/24 History insulin aspart U-100 100 unit/mL See Rx Instructions .Route .COMPLEX 10/07/23 03/11/24 History (3 mL) subcutaneous pen (Novolog FlexPen U-100 Insulin aspart) escitalopram oxalate 10 mg tablet 10 mg PO QDAY #90 tabs 10/09/23 03/11/24 Rx (Lexapro) atorvastatin 10 mg tablet 10 mg PO DAILY #90 tabs 10/30/23 03/11/24 Rx Disabled Parking permit See Rx Instructions .Route 11/07/23 03/05/24 Rx .COMPLEX #1 ea carvedilol 25 mg tablet 25 mg PO BID #180 tabs 11/15/23 03/11/24 Rx gabapentin 300 mg capsule 900 mg (3 x 300 mg) PO BEDTIME #90 02/24/24 03/11/24 Rx caps doxycycline hyclate 100 mg capsule 100 mg PO BID 03/05/24 03/11/24 History tramadol 50 mg tablet 50 mg PO TID PRN Pain (Scale Score 03/05/24 03/11/24 History 4-6) acetaminophen 500 mg capsule 500 mg PO PRN PRN Pain (Scale 03/06/24 03/11/24 History Score 4-6) esomeprazole magnesium 20 mg 20 mg PO DAILY 03/06/24 03/11/24 History tablet,delayed release ferrous sulfate 325 mg (65 mg 325 mg PO DAILY 03/06/24 03/11/24 History iron) tablet (iron) oxycodone 5 mg tablet 5 mg PO PRN PRN Pain (Scale Score 03/06/24 03/06/24 History 4-6) potassium chloride 20 mEq 20 meq PO DAILY 03/06/24 03/06/24 History tablet,extended release vitamins A,C,O-gate-xyfegv 2,148 2 tab PO BID 03/06/24 03/11/24 History mcg-113 mg-45 mg-17.4 mg tablet (PreserVision AREDS) Allergies Allergy/AdvReac Type Severity Reaction Status Date / Time Anesthetics - Amide Type - Allergy Severe PROJECTILE Verified 03/11/24 07:01 Select A VOMITING [Anesthetics - Amide Type] Anesthetics - Keke Type- Allergy Severe PROJECTILE Verified 03/11/24 07:01 Parabens VOMITING [Anesthetics - Keke Type] ibuprofen Allergy Intermediate gastic Verified 03/11/24 07:01 bleed levofloxacin AdvReac Intermediate arm/leg Unverified 03/11/24 07:02 pain NSAIDS (Non-Steroidal AdvReac Gastrointestinal Verified 03/11/24 07:01 Anti-Inflamma Upset Exam Vital Signs (past 8 hours): - 03/11/24 07:10 Temperature 97.9 F Pulse Rate 62 Respiratory Rate 17 Blood Pressure 118/70 Pulse Oximetry 97 Oxygen Delivery Method Room Air Oxygen Delivery Method Room Air Assessment & Plan Time-Based Coding :: [TOTAL MINUTES] spent with patient and on the chart (including review of chart, obtaining history, exam, reviewing outside data, placing orders, documenting exam and treatment plan, and counseling patient) on [DATE].
[2024-03-11] MEDS: SCOPOLAMINE 1 PATCH TOP (07:38)
--- NOTE | 2024-03-11 07:40 | PM.PREOP ---
Pre-operative Note Interval Note History & Physical reviewed/Exam performed by Physician: Yes Changes to H&P: No
[2024-03-11] MEDS: CEFAZOLIN 2 GM/100 ML PREMIX 100 ML IV ×3 (07:57→23:46)
[2024-03-11] MEDS: BUPIVACAINE 0.25% (PF) 10 ML, EPINEPHrine 0.15 MG INJ (08:23)
[2024-03-11] MEDS: AMLODIPINE 5 MG TABLET PO (09:40)
[2024-03-11] MEDS: carvediloL 12.5 MG TABLET 25 MG PO ×2 (09:40→21:25)
--- NOTE | 2024-03-11 10:11 | P.OP_ITS ---
Operative Date/Time/Diagnoses Date of procedure: 03/11/24 Time of procedure: 07:40 Pre-op diagnosis: 1. C4-5 spinal stenosis 2. Cervical radiculopathy 3. History C5-7 ACDF with retained hardware Post-op diagnosis: same Procedure & Clinicians Procedure: 1. C4-5 anterior cervical discectomy and fusion 2. C4-5 anterior interbody cage placement 3. C4-5 anterior instrumentation with plate and screw placement 4. Anterior deep hardware removal 5. Utilization of microsurgical technique and operating microscope Same procedure as scheduled: Yes Indications: Patient has been having chronic neck pain and worsening cervical radiculopathy. Patient had history of C5-7 anterior cervical diskectomy and fusion several years ago. Patient currently has right C5 radiculopathy correlating with her MRI finding of adjacent level disease at C4-5. Patient failed multiple conservative management with worsening pain weakness and numbness in her upper extremity. Patient has been having difficulty performing activity of daily living. After discussing risks benefits of treatment options, patient elected proceed with surgery. Surgeon: Rae Saunders Oil Burner Technician: Jaqueline Castro Click Yes if Unassisted: No Anesthesia Type: General Operative Notes Closure Type: primary Specimen(s): none sent Prosthetic devices, grafts, tissues, transplants, or devices: Globus Coalition plate, Hedron IC cage Estimated Blood Loss (mL): 5 Blood products transfused: none Procedure in detail: Patient was seen in the preoperative area. Risks and benefits of the surgery was discussed with the patient. Operative consent was obtained and placed in the chart. Patient was then taken to the operative room. Prophylactic antibiotic was given less than 0.5 hr prior to skin incision. General anesthesia was administered. Patient was placed into a supine position on her radiolucent table. Bilateral shoulders were taped down to allow proper C-arm imaging. Anterior cervical area was prepped and draped in a sterile fashion. Time-out was performed at this time. Using lateral C-arm imaging, the level between C4 and C5 was identified and marked on patient's neck. A oblique incision from midline towards medial border of sternocleidomastoid muscle was made. The platysma muscle was incised in line with skin incision. Metzenbaum scissor was used to develop the plane between the medial border of sternocleidomastoid d and the strap muscles medially. The carotid sheath and its contents were identified and protected behind the hand- held retractor during the entire case. The plane between the carotid sheath and strap muscles was developed with Metzenbaum scissors. Dissection was made down to the level of the anterior cervical fascia. Longus colli muscle was incised on the anterior aspect of vertebral bodies bilaterally from C4-5. The carotid sheath and the esophagus were retracted and protected during the entire case. At this time the previously placed hardware rest exposed from C5 level. Screwdriver was used to unlock the screws from the plate. Screwdriver was then used to remove the screws from the vertebral bodies. The 2 screws at C5 level was able to be removed without any difficulty. The screws were removed in order to allow new screw placement without hitting the previously placed hardware. Using microsurgical technique and operative microscope, anterior cervical diskectomy was performed at C4-5 level. This was done by removing the disc material, removing the anterior and posterior osteophytes posterior longitudinal ligaments along with performing bilateral foraminotomies bilaterally. Patient was found to have severe central and foraminal stenosis at C4-5 level. Patient's stenosis was fully decompressed after decompression was completed. After the diskectomy was completed, the endplate was decorticated in preparation for fusion. 1 anterior Hedronc IC interbody cage were obtained. The cage were packed with DBM bone grafting material. The cage was assembled with the Coalition plate on the back table and inserted into the interbody using the sawmill production worker. After the cages were placed, the anterior cervical plate was stabilized to the C4 and C5 level using 1 screw at each each level. Total 2 screws were placed. After confirming placement of the hardware with AP and lateral C-arm imaging, the screws were locked into the plate using the locking mechanism and torque limiting screwdriver. After the hardware was placed and confirmed with AP and lateral C-arm imaging, the wound was irrigated with sterile normal saline. The wound was inspected and hemostasis was maintained using bipolar. No visible bleeding was identified at the end of procedure prior to closure of the wound. The platysma muscle and the subcutaneous tissue was closed with 2-0 Vicryl. The skin was closed with 4-0 Monocryl and Steri-Strips. Patient tolerated the procedure well. Patient was transferred recovery room in stable condition. There were no complications. Neuro monitoring was used throughout the procedure and patient's neurologic st atus was stable throughout the entire procedure. The Operation could not have been safely performed without compromising the technical result or length of the procedure, without the assistance of a skilled certified surgical technologist. The certified surgical technologist was medically necessary for proper positioning, retraction and manipulation of instruments, proper exposure, surgical preparation, and manipulation of tissue. Complications: none Post-operative Condition: stable Disposition: PACU Plan for aftercare: Admit to inpatient hospital
[2024-03-11] MEDS: HYDROMORPHONE 1 MG INJ IV ×2 (10:42→10:49)
[2024-03-11] MEDS: hydrOXYzine 50 MG/ML INJ 25 MG IM (10:42)
[2024-03-11] MEDS: LACTATED RINGERS 1,000 ML 125 ML IV ×2 (11:26→19:52)
[2024-03-11] MEDS: INSULIN LISPRO 100 UNIT/ML 3ML VIAL SUBCUT ×2 (12:14→21:28)
[2024-03-11] MEDS: VIT C/E/ZN/COPPR/LUTEIN/ZEAXAN CAPSULE 2 CAP PO ×2 (12:40→21:27)
--- NOTE | 2024-03-11 15:13 | OT.IPNOTE ---
Attempted OT eval, pt not ready, able to get home set-up from her . Let nursing know pt's wondering where pt's FWW is at.
--- NOTE | 2024-03-11 15:53 | PT-IP ANOTE ---
PT eval received and EMR reviewed. checked on pt and pt asleep. spouse in room. stated that pt has been asleep since surgery and wants pt to just rest for now.
[2024-03-11] MEDS: GLIMEPIRIDE 2 MG TABLET 8 MG PO (17:27)
[2024-03-11] MEDS: ACETAMINOPHEN 325 MG TABLET 650 MG PO (17:33)
[2024-03-11] MEDS: SENNOSIDES 8.6 MG TABLET 17.2 MG PO (21:27)
[2024-03-11] MEDS: GABAPENTIN 300 MG CAPSULE 900 MG PO (21:27)
[2024-03-11] MEDS: DOXYCYCLINE HYCLATE 100 MG TABLET PO (21:27)
[2024-03-11] MEDS: DOCUSATE 100 MG CAPSULE PO (21:27)
[2024-03-11] MEDS: ATORVASTATIN 20 MG TABLET 10 MG PO (21:27)
[2024-03-11] MEDS: INSULIN GLARGINE 100 UNIT/ML 3ML PEN 14 UNIT SUBCUT (21:28)
[2024-03-12] MEDS: LACTATED RINGERS 1,000 ML 125 ML IV (02:50)
[2024-03-12] MEDS: PANTOPRAZOLE DR 20 MG TABLET PO (05:17)
--- NOTE | 2024-03-12 07:32 | P.PN_ITS ---
Subjective Subjective Date Patient Seen: 03/12/24 Time Patient Seen: 07:32 Interval history: Patient's pain is moderate. Her throat is a little sore. No shortness of breath or chest pain. Exam Vital Signs (past 8 hours): Oxygen Delivery Method Oximask Oxygen Flow Rate 3 Narrative Exam Narrative: 70-year-old female resting comfortably in bed in no apparent distress. Soft collar in place. Neurovascular status is intact bilateral upper extremity. Const General: cooperative and comfortable Nutritional Appearance: average body habitus Orientation: alert [facility] Medical History MRSA (methicillin resistant staph aureus) culture positive Breast cancer HTN (hypertension) Age-related osteoporosis without current pathological fracture History of colonic polyps Depression, major, recurrent Cerebrovascular disease Anemia in CKD (chronic kidney disease) Stage 3b chronic kidney disease (CKD) Insulin use (long-term) in type 2 diabetes Type 2 diabetes mellitus with stage 3b chronic kidney disease Candidiasis Pneumonia ROSCOE (obstructive sleep apnea) Unilateral primary osteoarthritis, left knee Obesity (BMI 30-39.9) Acute upper GI bleed Impingement syndrome of right shoulder Sternal fracture (2014) Hyperparathyroidism (2013) History of recurrent ear infection Vertigo (2011) Shoulder pain (2014) Lumbar spine pain GERD (gastroesophageal reflux disease) Hyperlipidemia (~1997) Urinary incontinence (2012) Cataract (2010) Chicken pox Measles Hayfever (~1960) Anxiety Fractures Surgical History S/P debridement H/O breast reconstruction Status post left knee replacement Hx of bilateral cataract extraction H/O lumpectomy H/O mastectomy History of lumbar spinal fusion Anesthesia complication History of fusion of cervical spine (2011) History of lumbar spinal fusion (2009) History of knee replacement (2006) Family History Father Hypertension High cholesterol Pneumonia Mother Hypertension Mental health problem Stroke History of hip surgery Grandfather Heart disease Hypertension High cholesterol Grandmother Hypertension High cholesterol Social History marital status: details: (Stu Barth), 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, 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, 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 members: spouse occupational status: other Smoking Status: Never smoker alcohol intake: current substance use type: does not use Assessment & Plan Post-op Postoperative Procedures: Procedures Operation Date: 03/11/24 07:45 Actual Procedure Side Surgeon p C4-5 ACDF Rae Saunders MD Postoperative day: 1 Postoperative status: doing well Postoperative status narrative: Stable Postoperative plan narrative: Soft collar for comfort Mobilize with PT, limit bending, twisting, lifting Keep dressing clean and dry Discharge home today or tomorrow Quality VTE Deep Vein Thrombosis/Pulmonary Embolism Present on Admission: No
[2024-03-12 08:00] VITALS: BP 144/57; PULSE 75; RESP 19; TEMP 36.8; O2SAT 92
[2024-03-12] MEDS: CHLORTHALIDONE 25 MG TABLET 12.5 MG PO (09:40)
[2024-03-12] MEDS: DOCUSATE 100 MG CAPSULE PO ×2 (09:40→21:09)
[2024-03-12] MEDS: ESCITALOPRAM 10 MG TABLET PO (09:40)
[2024-03-12] MEDS: DOXYCYCLINE HYCLATE 100 MG TABLET PO ×2 (09:40→21:08)
[2024-03-12] MEDS: POTASSIUM CHLORIDE 20 MEQ TAB PO (09:40)
[2024-03-12] MEDS: SITAGLIPTIN 50 MG TABLET PO (09:40)
[2024-03-12] MEDS: FERROUS SULFATE 325 MG TABLET PO (09:40)
--- NOTE | 2024-03-12 10:15 | PT-IP ANOTE ---
PT consult received. PT reviewed chart and therapists checked on pt. Pt on the phone and stating she is receiving a cancer diagnosis, is tearful, states it is not a good time. Will check back.
--- NOTE | 2024-03-12 10:54 | OT.IPNOTE ---
Pt not wanting to be seen this morning as talking on the phone and said finding out about cancer diagnosis.
--- NOTE | 2024-03-12 12:00 | OT.IP.EVAL ---
Current Diagnoses Spinal stenosis, cervical region (03/11/24) Surgery Performed Operation Date: 03/11/24 07:45 Actual Procedures p C4-5 ACDF - Rae Saunders MD Past Medical History (Last Reviewed 03/12/24 @ 07:33 by Gregory Granados PA-C) Acute upper GI bleed Age-related osteoporosis without current pathological fracture Anemia in CKD (chronic kidney disease) Anxiety Breast cancer Candidiasis Cataract (2010) Cerebrovascular disease Chicken pox Depression, major, recurrent Fractures GERD (gastroesophageal reflux disease) Hayfever (~1959) History of colonic polyps History of recurrent ear infection HTN (hypertension) Hyperlipidemia (~1997) Hyperparathyroidism (2013) Impingement syndrome of right shoulder Insulin use (long-term) in type 2 diabetes Lumbar spine pain Measles MRSA (methicillin resistant staph aureus) culture positive Obesity (BMI 30-39.9) ROSCOE (obstructive sleep apnea) Pneumonia Shoulder pain (2014) Stage 3b chronic kidney disease (CKD) Sternal fracture (2014) Type 2 diabetes mellitus with stage 3b chronic kidney disease Unilateral primary osteoarthritis, left knee Urinary incontinence (2012) Vertigo (2011) Surgical History (Last Reviewed 03/12/24 @ 07:33 by Gregory Granados PA-C) Anesthesia complication H/O breast reconstruction H/O lumpectomy H/O mastectomy History of fusion of cervical spine (2011) History of knee replacement (2006) History of lumbar spinal fusion (2009) History of lumbar spinal fusion Hx of bilateral cataract extraction S/P debridement Status post left knee replacement Occupational Therapy Inpatient Evaluation/Re-Eval M1 PT/OT-IP Prior Functional Status Start: 03/11/24 15:07 Freq: NEEDED Status: Active Protocol: Document 03/12/24 12:29 [facility] (Rec: 03/12/24 12:49 [facility] [id number]) Medical Review Prior Functional Status Communication I Mobility and Gait Pt having to use a FWW. Activities of Daily Living and IADL's Pt able to do ADL needs with pain and increased time. Social History Household Members spouse Living Arrangements House Number of Floors (Floors) Two Floors Number of Stairs To Enter/Railing? Bedroom on main floor with no steps and does not had to go upstairs. Home Environment High Toilet,Walk in Shower, Built-In Shower Seat Home Equipment Front Wheel Walker,Four Wheel Walker,Bedside Commode,Hand Held Shower,Long Handled Sponge,Long Handled Shoe Horn, Director Internal Control,Sock Aid,Grab Bars Near Toilet,Grab Bars In Shower M2 OT-IP Current Condition Start: 03/11/24 15:07 Freq: Status: Active Protocol: Document 03/12/24 12:29 [facility] (Rec: 03/12/24 12:49 [facility] [id number]) Occupational Therapy Current Condition Current Condition Evaluation Date 03/12/24 Treatment Diagnosis S/P C4-5 ACDF Diagnosis Onset Date 03/11/24 M3 OT- IP Subjective and Pain Start: 03/11/24 15:07 Freq: Status: Active Protocol: Document 03/12/24 12:29 [facility] (Rec: 03/12/24 12:49 [facility] [id number]) OT- Subjective Occupational Therapy Visit Type Type Initial Evaluation Visit Start Time 12:00 Visit Stop Time 12:25 Occupational Therapy Visit Comments Patient Comments Pt agreed to get up to brush her teeth. Patient/Caregiver Goals To go home tomorrow. OT Pain Assessment Pain When Pain Assessed During Mobility Pain Present Pain Present Pain Reported Location neck Pain Behaviors Facial Grimacing,Holding Area M4 OT- IP ADL's Start: 03/11/24 15:07 Freq: Status: Active Protocol: Document 03/12/24 12:29 [facility] (Rec: 03/12/24 12:49 [facility] [id number]) OT [id number] Comments OT Self-Feeding Comments Educated to eat upright , chew food thoroughly, colder foods , take smaller bited and sips. OT ADL-Grooming General Evaluation Grooming Ability Standby Assistance OT ADL-Oral Care General Eval Oral Care Ability Standby Assistance Comments Oral Care Comments Educated to spit into a cup in order to best follow her cervical precautions. OT ADL-Dressing Comments OT Dressing Comments Educated pt how to kori/doff her soft collar. Pt has LB dressing equipment at home to be able to assist with her needs. OT ADL-Toileting Comments OT Toileting Comments Pt not having to go, educated pt to be mindful of her head positioning during ADL needs. OT ADL-Bathing Comments OT Bathing Comments Spoke of showering needs and to avoid getting her neck wet. M5 OT- IP IADL's Start: 03/11/24 15:07 Freq: Status: Active Protocol: Document 03/12/24 12:29 [facility] (Rec: 03/12/24 12:49 [facility] [id number]) OT-Instrumental Activities of Daily Living Meal Preparation Meal Preparation Caregiver Provides Assist Sales Administrator Sales Administrator Caregiver Provides Assist M6 OT- IP Functional Cognition Start: 03/11/24 15:07 Freq: Status: Active Protocol: Document 03/12/24 12:29 [facility] (Rec: 03/12/24 12:49 [facility] [id number]) Cognitive Factors Limiting Selfcare Function Cognitive Ability Level of Alertness Alert Patient Orientation Name,Place,Situation Attention Span Ability Capable of Focused Attention, Capable of Sustained Attention Ability to Follow Commands Able to Follow One Step Commands Safety Awareness Decreased Ability to Apply Precautions Cognitive Comments Cognitive Assessment Comments Pt tends to be a little impulsive and needing reminders to incorporate her cervical precautions for ADL needs. OT- Vision and Hearing OT- Vision Assessment Visual Acuity Glasses For Reading Visual Attentiveness WFL Occular Pursuits WFL M7 OT- IP Mobility and Balance Start: 03/11/24 15:07 Freq: Status: Active Protocol: Document 03/12/24 12:29 [facility] (Rec: 03/12/24 12:49 [facility] [id number]) OT-Transfer Assessment Sit to and From Stand Sit to and from Stand Contact Guard Assistance Transfers Transfer Ability Contact Guard Assistance Technique Transfer Destination Chair Comments Mobility Comments CGA with FWW to walk to the sink and back to the recliner. OT- Balance Assessment Sitting Balance and Reactions Static Sitting Balance Ability Good Dynamic Sitting Balance Ability Good Standing Balance and Reactions Static Standing Balance Ability Fair Dynamic Standing Balance Ability Fair M9 OT- IP Assessment and Plan Start: 03/11/24 15:07 Freq: Status: Active Protocol: Document 03/12/24 12:29 [facility] (Rec: 03/12/24 12:49 [facility] [id number]) OT Summary Assessment and Plan Potential Rehabilitation Potential Good Analytic Complexity at Evaluation Low Summary OT Impairments Pain,Strength,Balance, Functional Mobility,Dressing, Toileting,Bathing,Toilet Transfers,Shower Transfers, Activity Tolerance Progress Towards Goals Progressing Toward Goals Assessment Summary Pt just finding out she has breast cancer and just having S/P C4-5 ACDF. Pt moving well but needing lots of VC for for safety to follow her cervical precautions. Pt would benefit from home health to assess safety at home as pt is a little impulsive and per pt her will not be able to assist her. Also maybe helpful to have a bath aid for pt. Goals Self-Feeding Goal Independent Grooming Goal Independent Dressing Goal Independent Toileting Goal Independent Bathing Goal Minimal Assistance Toilet Transfer Goal Independent Shower Transfer Goal Standby Assistance Days to Meet Goals 5 Frequency of Treatment Other frequency 5x/week Treatment Plan OT Treatment Plan ADL Training,Functional Mobility,Patient/Family Education,Discharge Planning Discharge Recommendations OT Discharge Recommendations Home with 24/7 Assist Available,Home Health Transportation Needs at Discharge Private Vehicle
[2024-03-12] MEDS: INSULIN LISPRO 100 UNIT/ML 3ML VIAL 6 UNIT SUBCUT (12:31)
--- NOTE | 2024-03-12 13:09 | PT.IIE ---
Current Diagnoses Spinal stenosis, cervical region (03/11/24) Surgery Performed Operation Date: 03/11/24 07:45 Actual Procedures p C4-5 ACDF - Rae Saunders MD Surgical History (Last Reviewed 03/12/24 @ 07:33 by Gregory Granados PA-C) Anesthesia complication H/O breast reconstruction H/O lumpectomy H/O mastectomy History of fusion of cervical spine (2011) History of knee replacement (2006) History of lumbar spinal fusion (2009) History of lumbar spinal fusion Hx of bilateral cataract extraction S/P debridement Status post left knee replacement Medical History (Last Reviewed 03/12/24 @ 07:33 by Gregory Granados PA-C) Acute upper GI bleed Age-related osteoporosis without current pathological fracture Anemia in CKD (chronic kidney disease) Anxiety Breast cancer Candidiasis Cataract (2010) Cerebrovascular disease Chicken pox Depression, major, recurrent Fractures GERD (gastroesophageal reflux disease) Hayfever (~1959) History of colonic polyps History of recurrent ear infection HTN (hypertension) Hyperlipidemia (~1997) Hyperparathyroidism (2013) Impingement syndrome of right shoulder Insulin use (long-term) in type 2 diabetes Lumbar spine pain Measles MRSA (methicillin resistant staph aureus) culture positive Obesity (BMI 30-39.9) ROSCOE (obstructive sleep apnea) Pneumonia Shoulder pain (2014) Stage 3b chronic kidney disease (CKD) Sternal fracture (2014) Type 2 diabetes mellitus with stage 3b chronic kidney disease Unilateral primary osteoarthritis, left knee Urinary incontinence (2012) Vertigo (2011) Physical Therapy Inpatient Evaluation/Re-Eval M1 PT/OT-IP Prior Functional Status Start: 03/11/24 15:07 Freq: NEEDED Status: Active Protocol: Document 03/12/24 12:29 [facility] (Rec: 03/12/24 12:49 [facility] [id number]) Medical Review Prior Functional Status Communication I Mobility and Gait Pt having to use a FWW. Activities of Daily Living and IADL's Pt able to do ADL needs with pain andn increased time. Social History Household Members spouse Living Arrangements House Number of Floors (Floors) Two Floors Number of Stairs To Enter/Railing? Bedroom on main floor with no steps and does not had to go upstairs. Home Environment High Toilet,Walk in Shower, Built-In Shower Seat Home Equipment Front Wheel Walker,Four Wheel Walker,Bedside Commode,Hand Held Shower,Long Handled Sponge,Long Handled Shoe Horn, Army Officer,Sock Aid,Grab Bars Near Toilet,Grab Bars In Shower M2 PT-IP Current Condition Start: 03/12/24 08:28 Freq: NEEDED Status: Active Protocol: Document 03/12/24 11:32 MB (Rec: 03/12/24 13:09 MB [id number]) Physical Therapy Current Condition Current Condition Evaluation Date 03/12/24 Treatment Diagnosis s/p L4-5 ACDF M3 PT-IP Subjective Start: 03/12/24 08:28 Freq: NEEDED Status: Active Protocol: Document 03/12/24 11:32 MB (Rec: 03/12/24 13:09 MB [id number]) Subjective Physical Therapy Visit Type Type Initial Evaluation Visit Start Time 11:32 Visit Stop Time 12:05 Number of RN PROVIDER RELATIONS Visits 0 Physical Therapy Visit Comments Patient Comments Third attempt checking on pt and she is upon BSC and so PT enters to assist and assess mobility. Pt with nearby, pt talking on phone and many people checking in. Therapy Pain Assessment Pain When Pain Assessed At Rest Pain Present Pain Present Denied Pain M4 PT-IP Mobility and Gait Start: 03/12/24 08:28 Freq: NEEDED Status: Active Protocol: Document 03/12/24 11:32 MB (Rec: 03/12/24 13:09 MB [id number]) PT-Transfer Assessment Sit to and From Stand Sit to and from Stand Contact Guard Assistance Equipment Transfer Assistive Device Gait Belt,Front Wheeled Walker Orthotic/Prosthetic Devices or Brace: No Transfers Transfer Destination Chair Transfer Technique Ambulation Transfer Ability Level of Assist Contact Guard Assistance Comments Mobility Comments Pt wearing soft collar. Pt requires set-up assist for getting t.p. and for a new brief and then she manages brief in sitting and hygiene with CGA in standing with RW. Pt is initally unsteady and requires CGA for safety. Pt with some impulsivity. Gait Assessment Gait Gait Assistance Required: Contact Guard Assist Distance (Feet) 20 Able to Maintain Weight Bearing Status Yes During Gait Assistive Devices Assistive Device Gait Belt,Front Wheeled Walker Orthotic/Prosthetic Devices or Brace: No Gait Deviations General Gait Pattern Decreased Stride Length,Wide Based Gait Factors Limiting Gait Function Factors Limiting Gait Function Difficulty Following Directions,Poor Balance,Poor Safety Awareness Comments Gait Comments Pt moves rather quickly and does not always look where she is going and tends to con't conversations with mobility PT-Balance Assessment Sitting Balance and Reactions Static Sitting Balance Ability Good Dynamic Sitting Balance Ability Good Standing Balance and Reactions Static Standing Balance Ability Good Dynamic Standing Balance Ability Fair Device Used RW M5 PT-IP Objective Assessments Start: 03/12/24 08:28 Freq: NEEDED Status: Active Protocol: Document 03/12/24 11:32 MB (Rec: 03/12/24 13:09 MB [id number]) Orientation Orientation/Cognition Level of Alertness Alert Orientation Name,Age,Place,Situation Language Function Ability No Deficits Noted Safety Awareness Decreased Safety Awareness Comments frequently interrupts pt during history taking and they frequently disagree about answers and pt appears to not recall recent fall OOB and tends to minimize reports as far as reports about her recent functional mobility and I. Gross Range of Motion Upper Extremity ROM Impairments Defer to OT and ed pt to be careful with reaching too far forward and overhead post-op, re-ed in log rolling to protect neck and not to lift too much weight Lower Extremity ROM Impairments LE range and strength are functional Strength Comments Strength Comments Pt has recent right LE fracture per and pt ( they report femur and patella) and that she covered, range and strength functional today for mobility Sensation Assessment Comments Sensation Comments Pt denies paresthesias Muscle Tone Muscle Tone WNL Yes M6 PT-IP Treatment Start: 03/12/24 08:28 Freq: NEEDED Status: Active Protocol: Document 03/12/24 11:32 MB (Rec: 03/12/24 13:09 [id number]) Physical Therapy Treatment Education Education Provided Precautions,Safety Other Treatments Other Treatment Performed Ed in log rolling and not lifting a lot of weight and OT reviews cervical education handout with pt and M7 PT-IP Assessment and Plan Start: 03/12/24 08:28 Freq: NEEDED Status: Active Protocol: Document 03/12/24 11:32 MB (Rec: 03/12/24 13:09 MB [id number]) PT Summary Assessment and Plan Potential Rehabilitation Potential Fair Status of Condition at Evaluation Evolving Summary Impairments ROM,Balance,Cognition,Bed Mobility,Transfers,Gait, Activity Tolerance Assessment Summary Pt is a 78 y/o female presenting with history of falls, injuries impulsivity, multiple left breast surgeries after cancer and wounds and she reports newly dx right breast cancer today (received call). She is POD1 ACDF. Pt is in good spirits when PT arrives third time today. She presents with some impulsivity and imbalance with transfers and gait. She and would like plan to be d/c home . Con't PT as pt in acute setting. Goals Bed Mobility Goal Independent Transfer Goal Independent,Front Wheeled Walker,Four Wheeled Walker Gait Goal Independent,Front Wheel Walker ,Four Wheel Walker Gait Distance 100 Other Goals Pt will perform log rolling with mod I. Days to Meet Goals 2 Frequency of Treatment Frequency Of Treatment Twice a Day Treatment Plan Physical Therapy Treatment Plan Bed Mobility Training,Transfer Training,Gait Training, Therapeutic Exercise,Balance Retraining,Post Op Education, Discharge Planning,Hot or Cold Pack,Neuromuscular Re-ed, Coordination Retraining,Manual Therapy Precautions Cervical Spine Precautions Soft Collar for Comfort,No Heavy Lifting,Log Roll Recommendations To Nursing Amount of Assist Needed 1 Person Assist Discharge Recommendations PT Discharge Recommendations Home with 24/12 Assist Available,Home Health Other Discharge Recommendations Home safety consult from PT d/ t history of falls and impulsivity Transportation Needs at Discharge Private Vehicle
--- NOTE | 2024-03-12 13:54 | PT.IPTN ---
Current Diagnoses Spinal stenosis, cervical region (03/11/24) Surgery Performed Operation Date: 03/11/24 07:45 Actual Procedures p C4-5 ACDF - Rae Saunders MD Physical Therapy Treatment Note M2 PT-IP Current Condition Start: 03/12/24 08:28 Freq: NEEDED Status: Active Protocol: Document 03/12/24 11:32 MB (Rec: 03/12/24 13:09 MB [id number]) Physical Therapy Current Condition Current Condition Evaluation Date 03/12/24 Treatment Diagnosis s/p L4-5 ACDF M3 PT-IP Subjective Start: 03/12/24 08:28 Freq: NEEDED Status: Active Protocol: Document 03/12/24 14:18 TS (Rec: 03/12/24 14:23 TS [id number]) Subjective Physical Therapy Visit Type Type Treatment Note Visit Start Time 13:54 Visit Stop Time 14:10 Number of SEISMIC SURVEY ASSISTANT Visits 1 Physical Therapy Visit Comments Patient Comments Pt found resting in the chair, she is agreeable to PT. M4 PT-IP Mobility and Gait Start: 03/12/24 08:28 Freq: NEEDED Status: Active Protocol: Document 03/12/24 14:18 TS (Rec: 03/12/24 14:23 TS [id number]) PT-Bed Mobility Assessment Sit to Supine Sit to Supine Minimal Assistance,1 Person Assistance PT-Transfer Assessment Sit to and From Stand Sit to and from Stand Contact Guard Assistance Equipment Transfer Assistive Device Gait Belt,Front Wheeled Walker Comments Mobility Comments STS with FWW CGA. Pt ambulates ~400'SBA with FWW, had no buckling or LOB. Sit to supine into bed Marybel for Le's, pt dmeonstrates carryover of logroll technique. Pt wsa left in bed, all needs met. Gait Assessment Gait Gait Assistance Required: Contact Guard Assist Distance (Feet) 400 Able to Maintain Weight Bearing Status Yes During Gait Assistive Devices Assistive Device Gait Belt,Front Wheeled Walker Orthotic/Prosthetic Devices or Brace: No Gait Deviations General Gait Pattern Decreased Stride Length,Wide Based Gait Factors Limiting Gait Function Factors Limiting Gait Function Difficulty Following Directions,Poor Balance,Poor Safety Awareness PT-Balance Assessment Sitting Balance and Reactions Static Sitting Balance Ability Good Dynamic Sitting Balance Ability Good Standing Balance and Reactions Static Standing Balance Ability Good Dynamic Standing Balance Ability Fair Device Used RW M5 PT-IP Objective Assessments Start: 03/12/24 08:28 Freq: NEEDED Status: Active Protocol: Document 03/12/24 11:32 MB (Rec: 03/12/24 13:09 MB [id number]) Orientation Orientation/Cognition Level of Alertness Alert Orientation Name,Age,Place,Situation Language Function Ability No Deficits Noted Safety Awareness Decreased Safety Awareness Comments frequently interrupts pt during history taking and they frequently disagree about answers and pt appears to not recall recent fall OOB and tends to minimize reports as far as reports about her recent functional mobility and I. Gross Range of Motion Upper Extremity ROM Impairments Defer to OT and ed pt to be careful with reaching too far forward and overhead post-op, re-ed in log rolling to protect neck and not to lift too much weight Lower Extremity ROM Impairments LE range and strength are functional Strength Comments Strength Comments Pt has recent right LE fracture per and pt ( they report femur and patella) and that she covered, range and strength functional today for mobility Sensation Assessment Comments Sensation Comments Pt denies paresthesias Muscle Tone Muscle Tone WNL Yes M6 PT-IP Treatment Start: 03/12/24 08:28 Freq: NEEDED Status: Active Protocol: Document 03/12/24 14:18 TS (Rec: 03/12/24 14:23 TS [id number]) Physical Therapy Treatment Education Education Provided Precautions,Safety M7 PT-IP Assessment and Plan Start: 03/12/24 08:28 Freq: NEEDED Status: Active Protocol: Document 03/12/24 14:18 TS (Rec: 03/12/24 14:23 TS [id number]) PT Summary Assessment and Plan Potential Rehabilitation Potential Fair Summary Impairments ROM,Balance,Cognition,Bed Mobility,Transfers,Gait, Activity Tolerance Progress Towards Goals Progressing Toward Goals Assessment Summary Lois is progressing well with her mobility. She is CGA for STS with use of FWW. She progressed her gait to ~400' SBA with use of FWW. She demonstrates good carryover of her logroll and understands her precautions. PT is recommending home with assist. Goals Bed Mobility Goal Independent Transfer Goal Independent,Front Wheeled Walker,Four Wheeled Walker Gait Goal Independent,Front Wheel Walker ,Four Wheel Walker Gait Distance 100 Other Goals Pt will perform log rolling with mod I. Days to Meet Goals 2 Frequency of Treatment Frequency Of Treatment Twice a Day Treatment Plan Physical Therapy Treatment Plan Bed Mobility Training,Transfer Training,Gait Training, Therapeutic Exercise,Balance Retraining,Post Op Education, Discharge Planning,Hot or Cold Pack,Neuromuscular Re-ed, Coordination Retraining,Manual Therapy Precautions Cervical Spine Precautions Soft Collar for Comfort,No Heavy Lifting,Log Roll Recommendations To Nursing Amount of Assist Needed 1 Person Assist Discharge Recommendations PT Discharge Recommendations Home with 24/12 Assist Available,Home Health Other Discharge Recommendations Home safety consult from PT d/ t history of falls and impulsivity Transportation Needs at Discharge Private Vehicle
[2024-03-12] MEDS: GLIMEPIRIDE 2 MG TABLET 8 MG PO (17:12)
[2024-03-12] MEDS: INSULIN LISPRO 100 UNIT/ML 3ML VIAL 10 UNIT SUBCUT (17:15)
[2024-03-12] MEDS: INSULIN LISPRO 100 UNIT/ML 3ML VIAL SUBCUT (17:17)
--- NOTE | 2024-03-12 18:48 | PC.NURSE ---
Addendum entered by Melida Long R.N. 03/12/24 18:51: Covered w/ insulin as per orders. SBA to BR Call light w/in reach, pt calls appropriately for needs. Continue w/plan of care. Original Note: Pt A/O, Denies discomfort. Soft collar in place. Dsg CDI. SL intact/patent. CBG 169, 138 covde
[2024-03-12 20:04] VITALS: BP 172/63; PULSE 84; RESP 16; TEMP 37.1; O2SAT 94
[2024-03-12] MEDS: ATORVASTATIN 20 MG TABLET 10 MG PO (21:08)
[2024-03-12] MEDS: GABAPENTIN 300 MG CAPSULE 900 MG PO (21:08)
[2024-03-12] MEDS: SENNOSIDES 8.6 MG TABLET 17.2 MG PO (21:08)
[2024-03-12 21:09] VITALS: BP 172/63; PULSE 84
[2024-03-12] MEDS: VIT C/E/ZN/COPPR/LUTEIN/ZEAXAN CAPSULE 2 CAP PO (21:09)
[2024-03-12] MEDS: carvediloL 12.5 MG TABLET 25 MG PO (21:09)
[2024-03-12] MEDS: ACETAMINOPHEN 325 MG TABLET 650 MG PO (21:10)
[2024-03-12] MEDS: INSULIN GLARGINE 100 UNIT/ML 3ML PEN 14 UNIT SUBCUT (21:21)
[2024-03-12 22:32] VITALS: BP 141/58; PULSE 78
[2024-03-12] MEDS: guaiFENesin Solution 100 MG/5 ML UDC 200 MG PO (23:52)
[2024-03-13] MEDS: PANTOPRAZOLE DR 20 MG TABLET PO (05:36)
[2024-03-13 08:00] VITALS: BP 119/66; PULSE 78; TEMP 36.6; O2SAT 94
--- NOTE | 2024-03-13 08:22 | PM.DS.1 ---
History of Present Illness History of Present Illness Date Patient Seen: 03/13/24 Time Patient Seen: 07:30 Chief complaint: ACDF Narrative: Patient has been having chronic neck pain and worsening cervical radiculopathy. Patient had history of C5-7 anterior cervical diskectomy and fusion several years ago. Patient currently has right C5 radiculopathy correlating with her MRI finding of adjacent level disease at C4-5. Patient failed multiple conservative management with worsening pain weakness and numbness in her upper extremity. Patient has been having difficulty performing activity of daily living. After discussing risks benefits of treatment options, patient elected proceed with surgery. Discharge Providers Provider Date of admission: 03/11/24 06:16 Discharge Date: 03/13/24 Primary care physician: Butch Browning MD Consults: 03/11/24 11:06 Consult to Occupational Therapy Evaluate & Treat Comment: Physician Instructions: Evaluate and treat Consult to Physical Therapy Evaluate & Treat Comment: Physician Instructions: Evaluate and Treat Discharge provider: Esau Luong PA-C Summary Hospital Course Discharge Diagnosis: 1. C4-5 spinal stenosis 2. Cervical radiculopathy 3. History C5-7 ACDF with retained hardware Hospital Course: Procedure & Clinicians Procedure: 1. C4-5 anterior cervical discectomy and fusion 2. C4-5 anterior interbody cage placement 3. C4-5 anterior instrumentation with plate and screw placement 4. Anterior deep hardware removal 5. Utilization of microsurgical technique and operating microscope Same procedure as scheduled: Yes Surgeon: Rae Saunders Rubber Grinder: Jaqueline Castro Click Yes if Unassisted: No Anesthesia Type: General Operative Notes Closure Type: primary Specimen(s): none sent Prosthetic devices, grafts, tissues, transplants, or devices: [employer] plate, Hedron IC cage Estimated Blood Loss (mL): 5 Blood products transfused: none Multi-modal pain control PT and OT sessions Status at Discharge Cognitive/behavioral status at discharge: oriented Overall status at discharge: patient is back to baseline Time Spent with Patient Time spent: Less than 30 minutes Exam Vital Signs (past 8 hours): Oxygen Delivery Method Oximask Oxygen Flow Rate 0 Narrative Exam Narrative: Patient found sitting comfortably in bed. Denies any new numbness or tingling to her upper extremities. Pain is controlled with tramadol. Patient is been working with occupational therapy and physical therapy. Patient is anxious to return home. She has assistance from her and daughter who will be coming in this weekend. [facility] Medical History MRSA (methicillin resistant staph aureus) culture positive Breast cancer HTN (hypertension) Age-related osteoporosis without current pathological fracture History of colonic polyps Depression, major, recurrent Cerebrovascular disease Anemia in CKD (chronic kidney disease) Stage 3b chronic kidney disease (CKD) Insulin use (long-term) in type 2 diabetes Type 2 diabetes mellitus with stage 3b chronic kidney disease Candidiasis Pneumonia ROSCOE (obstructive sleep apnea) Unilateral primary osteoarthritis, left knee Obesity (BMI 30-39.9) Acute upper GI bleed Impingement syndrome of right shoulder Sternal fracture (2014) Hyperparathyroidism (2013) History of recurrent ear infection Vertigo (2011) Shoulder pain (2014) Lumbar spine pain GERD (gastroesophageal reflux disease) Hyperlipidemia (~1997) Urinary incontinence (2012) Cataract (2010) Chicken pox Measles Hayfever (~1959) Anxiety Fractures Surgical History S/P debridement H/O breast reconstruction Status post left knee replacement Hx of bilateral cataract extraction H/O lumpectomy H/O mastectomy History of lumbar spinal fusion Anesthesia complication History of fusion of cervical spine (2011) History of lumbar spinal fusion (2009) History of knee replacement (2006) Family History Father Hypertension High cholesterol Pneumonia Mother Hypertension Mental health problem Stroke History of hip surgery Grandfather Heart disease Hypertension High cholesterol Grandmother Hypertension High cholesterol Social History marital status: details: (Stu Barth), 1 son, 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 Plan of Treatment: Discharge to home. Baseline pain relief with acetaminophen 500 mg every 4 hours as needed. Prescribed tramadol 50 mg take 1 tablet every 6 hours as needed for mild to moderate post operative pain. May utilize soft collar as needed for symptomatic relief. No lifting over 10 pounds. Follow-up in 2 weeks in clinic for wound check. Discharge Plan Discharge Plan Patient Disposition: Home Discharge orders & Medications Prescriptions: Continued coenzyme Q10 [CoQ-10] 100 mg capsule 200 mg PO DAILY (DME) pen needle, diabetic [1st Tier Unifine Pentips] 31 gauge x 5/16 needle See Dose Instructions .ROUTE .MEDSUPPLY Qty: 100 11RF Dose Instruction: As directed Rx Instructions: use to inject insulin at bedtime escitalopram oxalate [Lexapro] 10 mg tablet 10 mg PO QDAY Qty: 90 3RF Hold Instructions: med change atorvastatin 10 mg tablet 10 mg PO DAILY Qty: 90 3RF Disabled Parking permit See Rx Instructions .ROUTE .COMPLEX Qty: 1 0RF Rx Instructions: 6 mo. Disabled Parking permit carvedilol 25 mg tablet 25 mg PO BID Qty: 180 3RF Rx Instructions: take 1 tablet by mouth twice a day with food or with meals gabapentin 300 mg capsule 900 mg PO BEDTIME Qty: 90 3RF chlorthalidone 25 mg tablet 12.5 mg PO DAILY Qty: 45 3RF (DME) Blood Glucose Test Strip See Rx Instructions .ROUTE .MEDSUPPLY Qty: 50 5RF Rx Instructions: use to test blood sugar three times daily as directed amlodipine 5 mg tablet 5 mg PO DAILY Qty: 90 3RF tramadol 50 mg tablet 50 mg PO TID PRN (Reason: Pain (Scale Score 4-6)) doxycycline hyclate 100 mg capsule 100 mg PO BID glimepiride 4 mg tablet 8 mg PO QPM insulin aspart U-100 [Novolog FlexPen U-100 Insulin] 100 unit/mL (3 mL) insulin pen See Rx Instructions .ROUTE .COMPLEX Rx Instructions: 6 units breakfast and lunch, 10 units dinner, 4 units with snack. insulin glargine [Basaglar KwikPen U-100 Insulin] 100 unit/mL (3 mL) Insulin Pen 14 unit SUBCUT BEDTIME Rx Instructions: 12 units last night Januvia 50 mg tablet 50 mg PO DAILY ferrous sulfate [iron] 325 mg (65 mg iron) Tablet 325 mg PO DAILY acetaminophen 500 mg Capsule 500 mg PO PRN PRN (Reason: Pain (Scale Score 4-6)) PreserVision AREDS 2,148 mcg-113 mg-45 mg-17.4mg Tablet 2 tab PO BID Rx Instructions: administer with AM and PM meals esomeprazole magnesium 20 mg Tablet,Delayed Release (Dr/Ec) 20 mg PO DAILY potassium chloride 20 mEq tablet extended release 20 meq PO DAILY Discontinued oxycodone 5 mg Tablet 5 mg PO PRN PRN (Reason: Pain (Scale Score 4-6)) Follow up/Referrals: Butch Browning MD [Primary Care Provider] - Rae Saunders MD [Physician] - 03/25/24 10:20 am (Follow up w/ Gregory Granados PA-C, at [facility] office in [place].) Diet/Activity/Treatments Diet: Diet as Tolerated Food texture: Soft Diet comment: Discomfort swallowing is common after surgery; start with soft foods. Activity: Soft cervical collar for comfort only; you do not need to have it on. Most people feel more comfortable when wearing it while sleeping. No lifting over 10 pounds. Cold/Heat Therapy: Heating pad to back of neck/between shoulder blades as needed for pain. Skin/Wound/Dressing Care Report to your healthcare provider any signs of infection, such as:: chills, fever, night sweats, unusual drainage and unusual redness Dressing: May shower. Leave dressing intact until follow up in office. If dressing becomes wet inside, may remove but leave steri strips in place. Visit Report/Discharge Packet Instructions: DI for Anterior Cervical Discectomy and Fusion Stand Alone Forms: Patient Portal/API, Stroke Signs & Symptoms, Surgery Discharge Discharge Data Primary Care Provider: Butch Browning V Quality VTE Deep Vein Thrombosis/Pulmonary Embolism Present on Admission: No
[2024-03-13] MEDS: POTASSIUM CHLORIDE 20 MEQ TAB PO (09:36)
[2024-03-13] MEDS: ESCITALOPRAM 10 MG TABLET PO (09:36)
[2024-03-13] MEDS: AMLODIPINE 5 MG TABLET PO (09:36)
[2024-03-13] MEDS: CHLORTHALIDONE 25 MG TABLET 12.5 MG PO (09:36)
[2024-03-13] MEDS: carvediloL 12.5 MG TABLET 25 MG PO (09:37)
[2024-03-13] MEDS: guaiFENesin Solution 100 MG/5 ML UDC 200 MG PO (09:38)
[2024-03-13] MEDS: FERROUS SULFATE 325 MG TABLET PO (09:38)
[2024-03-13] MEDS: VIT C/E/ZN/COPPR/LUTEIN/ZEAXAN CAPSULE 2 CAP PO (09:46)
[2024-03-13] MEDS: SITAGLIPTIN 50 MG TABLET PO (09:46)
--- NOTE | 2024-03-13 10:23 | PC.NURSE ---
Day shift: Left unit at approx 1020 via WC. States I'm really happy to be going home today. Paperwork signed and all questions answered. Spouse in room for d/c teachings. Pt has all personal belongings. No new MD scripts.
--- NOTE | 2024-03-13 10:29 | CM.DPC ---
DCP Continued: Reviewed EMR and team rounds for pt?s medical status. Per Provider, pt cleared for discharge home with family. DCP entered room, introduced self and role. Present in the room is pt's , Stu. Patient was found in bed, alert and oriented, wearing a neck brace. DCP discussed home health with patient as previous nurse noted that pt will need a bath aide. Patient agreeable to home health referral and stated a history of services with [facility]. DCP noted this with Ortho PAHarrison, who indicated understanding. DCP sent referral to [facility] and with signed orders, pt pending acceptance. Plan: Anticipating discharge home with , HH to follow. CM Team will continue to follow for coordination of discharge plans. MARBELLA Carroll
== END 2024-03-13 10:25 | disposition home health service (06) | DRG 473 ==
PROVIDERS: Admitting Provider Orthopaedic Surgery Orthopaedic Surgery of the Spine; Family Provider Family Medicine; PCP Internal Medicine; Referring Provider Physical Medicine & Rehabilitation; Visit Provider Orthopaedic Surgery Orthopaedic Surgery of the Spine
PROC: 0RG10A0 Fusion of Cervical Vertebral Joint with Interbody Fusion Device, Anterior Approach, Anterior Column, Open Approach (ICD-10-PCS; principal; 2024-03-11 07:45)
DX: M48.02 Spinal stenosis, cervical region (principal); M54.12 Radiculopathy, cervical region; F32.A Depression, unspecified; F41.9 Anxiety disorder, unspecified; E78.5 Hyperlipidemia, unspecified; K21.9 Gastro-esophageal reflux disease without esophagitis; D64.9 Anemia, unspecified; E11.22 Type 2 diabetes mellitus with diabetic chronic kidney disease; I12.9 Hypertensive chronic kidney disease with stage 1 through stage 4 chronic kidney disease, or unspecified chronic kidney disease; N18.9 Chronic kidney disease, unspecified; D63.1 Anemia in chronic kidney disease; Z79.84 Long term (current) use of oral hypoglycemic drugs; Z98.1 Arthrodesis status; Z79.4 Long term (current) use of insulin
CPT/HCPCS: 72040; 76000; 82962; 94762; 97161; 97165; 97530; 97535; J0171; J0690; J1100; J1171; J1815; J2405; J2704; J3010; J3410

== ENCOUNTER → 2024-04-17 07:46 | Outpatient (CLI) | payer MEDICARE, OTHER, SELFPAY ==
[2024-03-11 15:29] VITALS: BMI 33.0
--- NOTE | 2024-04-20 17:33 | DI.NM.S_ITS ---
DATE OF SERVICE: 04/17/2024 NUCLEAR CARDIOLOGY MYOCARDIAL PERFUSION STUDY PROCEDURE: Pharmacologic vasodilator stress and rest myocardial perfusion imaging with gating to assess ejection fraction and regional wall motion. ORDERING PROVIDER: Butch Browning MD. INDICATIONS: The patient is a 78-year-old diabetic female who requires preoperative cardiovascular risk assessment. PHARMACOLOGIC STRESS: Per protocol, 0.4 mg of regadenoson was infused with a normal hemodynamic response without chest discomfort and only minimal dyspnea. Her resting ECG is normal and there are no significant ST-segment shifts with stress. She had rare PACs, but no complex ectopy. Per protocol, 25.7 mCi of technetium-99m Myoview was injected and she was imaged 15 minutes later using a gated SPECT acquisition protocol. Three days prior while at rest, she had been injected with 24.4 mCi technetium-99m Myoview and imaged 15 minutes later, again using a gated SPECT acquisition protocol. FINDINGS: 1. Raw Data: There is fairly good myocardial tracer uptake, although mild breast shadows are noted. The lung/heart ratio is at the upper limits of normal at 0.42 but is not visually obvious and thus nonspecific. The TID ratio is normal at 0.78. 2. Post-stress ejection fraction is 94%, likely an overestimate because of relatively small left ventricular volume. There are no focal wall motion abnormalities. Resting ejection fraction is 83% with a resting end-diastolic volume of 80 mL. 3. Myocardial perfusion imaging: Post-stress supine images show a fairly normal myocardial perfusion pattern without any perfusion defects. The resting images show a normal perfusion pattern without any areas of improvement. The patient was unable to lie prone to assess for any attenuation artifact. IMPRESSION: 1. Normal myocardial perfusion study. 2. No evidence of myocardial ischemia or previous myocardial infarction. 3. High-normal left ventricular systolic function without any focal wall motion abnormality. Left ventricular volumes are normal. 4. No angina or ECG evidence of ischemia with pharmacologic vasodilator stress. She had rare isolated PACs, but no complex ectopy. Lois Barakat - RS/fn/DE doc#: [id number]/job#: [id number] dd: 04/20/2024 17:06:00 dt: 04/20/2024 17:15:00 DICTATING MD/COPIES TO: Yang Fletcher MD; Butch Browning MD COPIES MNE: POOJA;
== END ==
LOC: NUCM 07:47
PROVIDERS: Family Provider Family Medicine; PCP Internal Medicine; Referring Provider Internal Medicine; Visit Provider Internal Medicine
DX: E11.22 Type 2 diabetes mellitus with diabetic chronic kidney disease (principal); N18.32 Chronic kidney disease, stage 3b; R06.09 Other forms of dyspnea
CPT/HCPCS: 78452; 93017; A9502; J2785

== ENCOUNTER → 2024-04-23 11:46 | Outpatient (CLI) | payer MEDICARE, OTHER, SELFPAY ==
[2024-03-11 15:29] VITALS: BMI 33.0
--- NOTE | 2024-04-23 11:48 | DI.MRI.S_ITS ---
BREAST MRI OF BOTH BREASTS: 04/23/2024 CLINICAL: Personal history of left breast cancer. PROCEDURE: MR BREAST BI WO/W CON INDICATIONS: HX OF CANCER, DENSE BREASTS TECHNIQUE: The patient was placed prone in a dedicated breast imaging coil. Precontrast axial STIR and 3D FLASH without fat saturation sequences were obtained. Both before and after bolus injection of contrast, sequential 1-minute axial 3D FLASH with fat saturation sequences for 3 time points, with subtraction images and maximum intensity projections (MIP's) generated. Delayed sagittal FLASH images with fat saturation were also obtained. Computer-aided detection, including computer algorithm analysis of MRI image data for lesion detection and characterization, pharmacokinetic analysis, with further physician review for interpretation, was performed. COMPARISON: [facility], , MR BREAST BI WO/W CON, 01/02/2022, 9:16. FINDINGS: Image quality: There is inter-scan and intra-scan motion resulting in pseudo enhancement which mildly limits quality of exam. There is heterogeneous amount fibroglandular tissue in the right breast. There is mild background parenchymal enhancement. Right breast: There is a biopsy clip in the right breast at 12 o'clock posterior depth corresponding to site of prior high risk pathology (ALH) with minimal surrounding enhancement, decreased since prior MRI 01/02/2022. No other areas of suspicious enhancement or lymphadenopathy. Left breast: Status post left breast mastectomy with flap reconstruction. No areas of suspicious enhancement. No axillary lymphadenopathy. Stable prominent left internal mammary chain lymph nodes since prior MRI 01/02/2022, for example series 5, image 51 and image 41. IMPRESSION: BENIGN 1) Status post right breast needle biopsy with minimal surrounding enhancement corresponding to site of prior high risk atypical lobular hyperplasia (ALH). No MRI evidence of malignancy in the right breast. Recommend continued routine annual screening. Patient is due for right breast screening mammogram (last mammogram dated 01/24/2022). 2) Left breast status post mastectomy with flap reconstruction. No MRI evidence of malignancy. This exam was interpreted at Station ID: [id number]. Electronically Signed By: Bina Youngblood M.D., Ph.D. eb/:04/24/2024 08:49:56 letter sent: Normal Exam ACR BI-RADS Category 2: Benign
[2024-04-23 13:22] LABS: Hematocrit 35.3 % (36-46); Hemoglobin 11.7 g/dL (12.0-16.0); Mean Corpuscular HGB Conc 33.1 % (30-36); Mean Corpuscular Hemoglobin 28.7 PG (26-34); Mean Corpuscular Volume 86.7 fL (80-100); Platelet Count 329 X10^3/uL (150-400); Red Blood Cell Count 4.07 X10^6/uL (4.0-5.2); White Blood Cell Count 5.5 X10^3/uL (4.5-11.0)
[2024-04-23 13:38] LABS: Alanine Aminotransferase 21 IU/L (<35); Albumin 4.1 g/dL (3.5-5.0); Albumin Globulin Ratio 1.3 (1.0-2.8); Alkaline Phosphatase 77 U/L (38-126); Aspartate Aminotransferase 30 IU/L (14-36); BUN Creatinine Ratio 27.3 (6-22); Bilirubin Total 0.5 mg/dL (0.2-1.3); Blood Urea Nitrogen 42 mg/dL (7-17); Calcium 9.7 mg/dL (8.4-10.2); Carbon Dioxide 33 mmol/L (22-32); Chloride 100 mmol/L (98-107); Estimated Glomerular Filt Rate 34 mL/min (>60); Globulin 3.2 g/dL (1.7-4.1); Glucose 140 mg/dL (80-110); HEMOLYSIS < 15 (0-50); Potassium 3.6 mmol/L (3.4-5.1); Sodium 140 mmol/L (137-145); Total Protein 7.3 g/dL (6.3-8.2)
[2024-04-23 13:40] LABS: Hemoglobin A1C% w Est Avg Glu 7.3 % (4.0-6.0)
[2024-04-23 14:08] LABS: TSH w/ Reflex to FT4 1.19 uIU/mL (0.47-4.68)
== END ==
PROVIDERS: Family Provider Family Medicine; PCP Internal Medicine; Referring Provider Surgery; Visit Provider Surgery
DX: N60.91 Unspecified benign mammary dysplasia of right breast (principal); Z85.3 Personal history of malignant neoplasm of breast; R92.30 Dense breasts, unspecified; Z90.12 Acquired absence of left breast and nipple; E11.22 Type 2 diabetes mellitus with diabetic chronic kidney disease; N18.32 Chronic kidney disease, stage 3b; D63.1 Anemia in chronic kidney disease
CPT/HCPCS: 36415; 77049; 80053; 83036; 84443; 85027; A9579

== ENCOUNTER → 2024-08-07 15:05 | Outpatient (CLI) | payer MEDICARE, OTHER, SELFPAY ==
[2024-03-11 15:29] VITALS: BMI 33.0
[2024-08-07 16:05] LABS: Influenza A - CEPHEID Flu A NEGATIVE (NEGATIVE); Influenza B - CEPHEID Flu B NEGATIVE (NEGATIVE); Respiratory Syncytial Virus Negative (Negative)
[2024-08-07 16:06] LABS: COVID-19 CEPHEID 4-PLEX PCR Negative (Negative)
== END ==
LOC: LAB 15:06
PROVIDERS: Family Provider Family Medicine; PCP Internal Medicine; Visit Provider Nurse Practitioner Family
DX: R05.9 Cough, unspecified (principal); R11.0 Nausea
CPT/HCPCS: 0241U

== ENCOUNTER → 2024-08-07 15:23 | Outpatient (CLI) | payer MEDICARE, OTHER, SELFPAY ==
[2024-03-11 15:29] VITALS: BMI 33.0
--- NOTE | 2024-08-07 15:24 | DI.RAD.S_ITS ---
PROCEDURE: XR CHEST 2V INDICATIONS: Cough TECHNIQUE: 2 views of the chest were acquired. COMPARISON: [facility], CR, XR CHEST 2V, 02/28/2018, 12:20. FINDINGS: Surgical changes and devices: Sternal wires and thoracolumbar fixation rods. Axillary clips. Lungs and pleura: Lungs are clear. No pleural effusions or pneumothorax. Mediastinum: Mediastinal contours are normal. Heart size is prominent. Bones and chest wall: No suspicious bony abnormalities. Soft tissues appear unremarkable. IMPRESSION: No acute pulmonary process. Dictated by: Maryam Barnes M.D. on 08/07/2024 at 16:19 Approved by: Maryam Barnes M.D. on 08/07/2024 at 16:19
== END ==
PROVIDERS: Family Provider Family Medicine; PCP Internal Medicine; Referring Provider Nurse Practitioner Family; Visit Provider Nurse Practitioner Family
DX: R05.9 Cough, unspecified (principal); R11.0 Nausea
CPT/HCPCS: 0241U; 71046

== ENCOUNTER 2024-10-24 09:14 | Emergency (ER) | payer MEDICARE, OTHER, SELFPAY ==
[2024-03-11 15:29] VITALS: BMI 33.0
[2024-10-24 09:42] VITALS: PULSE 77; O2SAT 99
[2024-10-24 09:45] VITALS: BP 152/75; PULSE 79; RESP 18; TEMP 36.6; O2SAT 98; BMI 31.9
--- NOTE | 2024-10-24 09:51 | DI.RAD.S_ITS ---
PROCEDURE: XR HIP W PEL IF DONE LT 2V INDICATIONS: left hip pain TECHNIQUE: AP pelvis with lateral view of the left hip. COMPARISON: [facility], CR, [id number] W PEL IF PERFORMED, 11/22/2015, 8:14. FINDINGS: Bones: Postsurgical changes are seen in the lumbosacral spine including bilateral pedicle screws and interbody rods as well as bilateral sacroiliac screws. Laminectomy changes are noted. Mild generalized osteopenia. No acute osseous fracture or dislocation. Moderate degenerative changes in the hips bilaterally. Soft tissues: The visualized bowel gas pattern is normal. No suspicious soft tissue calcifications. IMPRESSION: No acute osseous abnormality. If there is continued clinical concern or persistent symptoms, repeat radiographs or cross-sectional imaging (e.g. CT, MRI) may be helpful for further evaluation. Approved by: Diogenes Maciel M.D. on 10/24/2024 at 9:34
--- NOTE | 2024-10-24 09:56 | ED_ITS ---
HPI - Extremity Injury (Lower) General Chief Complaint: Extremity Injury, Lower Stated Complaint: lt hip pain t-1 Time Seen by Provider: 10/24/24 09:21 Source: patient Mode of arrival: Ambulatory History of Present Illness HPI Narrative: 78-year-old female with history of arthritis in the left hip, has been trying to increase her activity, walking with walking sticks recent days, no fall or twist injuries, has increasing left-sided hip pain, particularly in the buttock area. No distal pain to the posterior thigh knee leg foot. No other areas of new discomfort. She also denies any chest pain shortness of breath. She denies abdominal discomfort. No painful or frequent urination. No fevers or chills. Related Data Home Medications Medication Instructions Recorded Confirmed insulin glargine 100 unit/mL (3 14 unit SUBCUT BEDTIME 06/14/20 09/07/24 mL) subcutaneous pen (Basaglar KwikPen U-100 Insulin) coenzyme Q10 100 mg capsule 200 mg PO DAILY 09/29/20 09/07/24 (CoQ-10) sitagliptin phosphate 50 mg tablet 50 mg PO DAILY 02/27/23 09/07/24 (Januvia) acetaminophen 500 mg capsule 500 mg PO PRN PRN Pain (Scale 03/06/24 09/07/24 Score 4-6) esomeprazole magnesium 20 mg 20 mg PO DAILY 03/06/24 09/07/24 tablet,delayed release ferrous sulfate 325 mg (65 mg 325 mg PO DAILY 03/06/24 09/07/24 iron) tablet (iron) potassium chloride 20 mEq 20 meq PO DAILY 03/06/24 09/07/24 tablet,extended release vitamins A,C,N-itjw-qufrzd 2,148 2 tab PO BID 03/06/24 09/07/24 mcg-113 mg-45 mg-17.4 mg tablet (PreserVision AREDS) dulaglutide 0.75 mg/0.5 mL 0.75 mg SUBCUT QWEEK 08/07/24 09/07/24 subcutaneous pen injector (Trulicity) insulin aspart 1 sliding scale dose SUBCUT 09/07/24 09/07/24 (niacinamide)(U-100) 100 unit/mL(3 USEASDIRECTD mL) subcutaneous pen (Fiasp FlexTouch U-100 Insulin) Previous Rx's Medication Instructions Recorded pen needle, diabetic 31 gauge x #100 ea 03/03/1810/16 (1st Tier Unifine Pentips) blood sugar diagnostic (Blood #50 ea 07/08/23 Glucose Test strips) atorvastatin 10 mg tablet 10 mg PO DAILY #90 tabs 10/30/23 Disabled Parking permit See Rx Instructions .Route 03/24/24 .COMPLEX #1 ea amlodipine 5 mg tablet 5 mg PO DAILY #90 tabs 06/15/24 gabapentin 300 mg capsule 900 mg (3 x 300 mg) PO BEDTIME #90 06/22/24 caps amoxicillin 875 mg-potassium 1 tab PO BID #20 tabs 08/10/24 clavulanate 125 mg tablet Parking Permit... #1 ea 09/07/24 chlorthalidone 25 mg tablet 12.5 mg (1/2 x 25 mg) PO DAILY #45 09/07/24 tabs mirtazapine 15 mg tablet 15 mg PO BEDTIME #90 tabs 09/07/24 carvedilol 25 mg tablet 25 mg PO BID #180 tabs 10/08/24 methocarbamol 500 mg tablet 500 mg PO TID 7 days #21 tabs 10/24/24 Allergies Allergy/AdvReac Type Severity Reaction Status Date / Time Anesthetics - Amide Type - Allergy Severe PROJECTILE Verified 09/07/24 09:37 Select A VOMITING [Anesthetics - Amide Type] Anesthetics - Keke Type- Allergy Severe PROJECTILE Verified 09/07/24 09:37 Parabens VOMITING [Anesthetics - Keke Type] ibuprofen Allergy Intermediate gastic Verified 09/07/24 09:37 bleed amoxicillin [From Augmentin] AdvReac Intermediate Diarrhea Verified 09/07/24 10:00 clavulanic acid AdvReac Intermediate Diarrhea Verified 09/07/24 10:00 [From Augmentin] levofloxacin AdvReac Intermediate arm/leg Verified 09/07/24 09:37 pain NSAIDS (Non-Steroidal AdvReac Gastrointestinal Verified 09/07/24 09:37 Anti-Inflamma Upset Patient History Medical History (Updated 10/24/24 @ 10:12 by Esau Sebastian MD) Osteopenia Breast cancer, right Cervical stenosis of spine MRSA (methicillin resistant staph aureus) culture positive HTN (hypertension) Age-related osteoporosis without current pathological fracture History of colonic polyps Depression, major, recurrent Cerebrovascular disease Anemia in CKD (chronic kidney disease) Stage 3b chronic kidney disease (CKD) Insulin use (long-term) in type 2 diabetes Type 2 diabetes mellitus with stage 3b chronic kidney disease Candidiasis Pneumonia ROSCOE (obstructive sleep apnea) Unilateral primary osteoarthritis, left knee Obesity (BMI 30-39.9) Acute upper GI bleed Impingement syndrome of right shoulder Sternal fracture (2014) Hyperparathyroidism (2014) History of recurrent ear infection Vertigo (2012) Shoulder pain (2015) Lumbar spine pain GERD (gastroesophageal reflux disease) Hyperlipidemia (~1998) Urinary incontinence (2012) Cataract (2010) Chicken pox Measles Hayfever (~1960) Anxiety Fractures Surgical History (Updated 09/07/24 @ 12:33 by Buthc Browning MD) S/P right mastectomy (05/19/24) S/P debridement H/O breast reconstruction Status post left knee replacement Hx of bilateral cataract extraction H/O lumpectomy H/O mastectomy History of lumbar spinal fusion Anesthesia complication History of fusion of cervical spine (2011) History of lumbar spinal fusion (2009) History of knee replacement (2006) Family History Father Hypertension High cholesterol Pneumonia Mother Hypertension Mental health problem Stroke History of hip surgery Grandfather Heart disease Hypertension High cholesterol Grandmother Hypertension High cholesterol Social History marital status: details: (Stu Barth), 1 son, 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 HEAD: Atraumatic. Normocephalic. EYES: Pupils equal round and reactive. Extraocular motions intact. No scleral icterus. No injection or drainage. ENT: Nose without bleeding, purulent drainage. Throat without erythema, tonsillar hypertrophy or exudate. Airway patent. NECK: Trachea midline. Non tender CARDIOVASCULAR: Regular rate and rhythm without murmurs, gallops, or rubs. RESPIRATORY: Clear to auscultation. Breath sounds equal bilaterally. No wheezes, rales, or rhonchi. GASTROINTESTINAL: Abdomen soft, non-tender, nondistended. EXTREMITIES: No edema or joint tenderness. No limb length discrepancy. No anterior left hip tenderness, nor along the trochanteric left hip, but some tenderness the superior left gluteal region. BACK: Nontender without deformity or crepitance. No flank tenderness. NEURO: AOx3. Motor functions grossly nonfocal SKIN: No rash or erythema of visible areas Initial Vital Signs Initial Vital Signs: Vital Signs Pulse Rate 77 10/24/24 09:42 Pulse Oximetry 99 10/24/24 09:42 Course Orders Ordered: ED Orders 10/24/24 09:51 XR hip w pel LT 2V Stat Vital Signs Vital signs: Vital Signs - 8 hr 10/24/24 09:45 Temperature 98 F Pulse Rate 79 Respiratory Rate 18 Blood Pressure 152/75 H Pulse Oximetry 98 Oxygen Delivery Method Room Air MDM - Extremity Injury (Lower) Imaging Data Extremity x-ray #1: Radiologist's Impression: [address] [address] XRay Report Signed Patient: Lois Barakat MR#: [id number] : 1945 Acct:[id number] Age/Sex: 78 / F Date of Service: 10/24/24 Loc: ED Accession Number: [id number] Procedure: XR hip w pel LT 2V Ordering Provider: Esau Sebastian MD PROCEDURE: XR HIP W PEL IF DONE LT 2V INDICATIONS: left hip pain TECHNIQUE: AP pelvis with lateral view of the left hip. COMPARISON: [facility], , [id number] W PEL IF PERFORMED, 11/22/2015, 8:14. FINDINGS: Bones: Postsurgical changes are seen in the lumbosacral spine including bilateral pedicle screws and interbody rods as well as bilateral sacroiliac screws. Laminectomy changes are noted. Mild generalized osteopenia. No acute osseous fracture or dislocation. Moderate degenerative changes in the hips bilaterally. Soft tissues: The visualized bowel gas pattern is normal. No suspicious soft tissue calcifications. IMPRESSION: No acute osseous abnormality. If there is continued clinical concern or persistent symptoms, repeat radiographs or cross-sectional imaging (e.g. CT, MRI) may be helpful for further evaluation. Approved by: Diogenes Maciel M.D. on 10/24/2024 at 9:34 [facility] Narrative Medical decision making narrative: 78-year-old female with left hip pain increased over recent baseline with flat surface walking activity. Some tenderness gluteal area on examination. X-ray left hip ordered from triage. Suspect she may have hip strain with underlying osteoarthritis by history. No fall or direct blow to her hip. She seems amenable to trial of muscle relaxant, if x-ray showed no actionable pathology. X-ray pelvis with left hip, shows spinal internal fixation hardware that seemed to be in good position, no obvious left hip fracture or dislocation, significant arthritis with loss of joint space both hips. ED wet read. Await Radiology report. XR hip/pelvis no acute changes, arthritic changes noted. See radiology report. Home trial Robaxin muscle relaxant for possible gluteal strain/overuse. Home with . Return precautions discussed. Discharge Plan Departure Patient Disposition: Home Clinical Impression: Muscle strain of left hip Activity Restrictions/Additional Instructions: Left hip pain without fall or blunt trauma, history of arthritis known, recent walking activity, possible overuse. X-ray of the left hip showed osteoarthritis like changes, no obvious dislocation or fractures. Some tenderness along the left gluteal muscle, possible gluteal or other muscular strain. Trial of muscle relaxant. Consider [id number] Tylenol as needed for pain control. Robaxin/methocarbamol muscle relaxant prescription sent to your pharmacy to trial. Recheck advised with your regular doctor this next week. Recheck earlier to this/nearest emergency department for any change worsening symptoms or any concerns prior. Prescriptions: New methocarbamol 500 mg tablet 500 mg PO TID 7 Days Qty: 21 0RF No Action coenzyme Q10 [CoQ-10] 100 mg capsule 200 mg PO DAILY Trulicity 0.75 mg/0.5 mL pen injector 0.75 mg SUBCUT QWEEK (DME) pen needle, diabetic [1st Tier Unifine Pentips] 31 gauge x 5/16 needle See Dose Instructions .ROUTE .MEDSUPPLY Qty: 100 11RF Dose Instruction: As directed Rx Instructions: use to inject insulin at bedtime atorvastatin 10 mg tablet 10 mg PO DAILY Qty: 90 3RF amlodipine 5 mg tablet 5 mg PO DAILY Qty: 90 3RF gabapentin 300 mg capsule 900 mg PO BEDTIME Qty: 90 3RF carvedilol 25 mg tablet 25 mg PO BID Qty: 180 3RF Rx Instructions: take 1 tablet by mouth twice a day with food or with meals (DME) Blood Glucose Test Strip See Rx Instructions .ROUTE .MEDSUPPLY Qty: 50 5RF Rx Instructions: use to test blood sugar three times daily as directed amoxicillin-pot clavulanate 875-125 mg tablet 1 tab PO BID Qty: 20 1RF Fiasp FlexTouch U-100 Insulin 100 unit/mL (3 mL) insulin pen 1 sliding scale dose SUBCUT USEASDIRECTD chlorthalidone 25 mg tablet 12.5 mg PO DAILY Qty: 45 3RF (DME) Parking Permit... See Rx Instructions .Route .MEDSUPPLY Qty: 1 0RF Rx Instructions: As directed mirtazapine 15 mg tablet 15 mg PO BEDTIME Qty: 90 3RF Disabled Parking permit See Rx Instructions .ROUTE .COMPLEX Qty: 1 0RF Rx Instructions: 6 mo. Disabled Parking permit insulin glargine [Basaglar KwikPen U-100 Insulin] 100 unit/mL (3 mL) Insulin Pen 14 unit SUBCUT BEDTIME Rx Instructions: 12 units last night Januvia 50 mg tablet 50 mg PO DAILY ferrous sulfate [iron] 325 mg (65 mg iron) Tablet 325 mg PO DAILY acetaminophen 500 mg Capsule 500 mg PO PRN PRN (Reason: Pain (Scale Score 4-6)) PreserVision AREDS 2,148 mcg-113 mg-45 mg-17.4mg Tablet 2 tab PO BID Rx Instructions: administer with AM and PM meals esomeprazole magnesium 20 mg Tablet,Delayed Release (Dr/Ec) 20 mg PO DAILY potassium chloride 20 mEq tablet extended release 20 meq PO DAILY Referrals: Butch Browning MD [Primary Care Provider] - Stand Alone Forms: Patient Portal/API/Survey
[2024-10-24 10:00] VITALS: PULSE 76; O2SAT 96
[2024-10-24 10:30] VITALS: PULSE 70; O2SAT 96
[2024-10-24 11:00] VITALS: PULSE 70; O2SAT 94
[2024-10-24 11:06] VITALS: BP 165/78; PULSE 68; O2SAT 98
--- NOTE | 2024-10-24 19:22 | PC.NURSE ---
This RN was present for all interaction with this patient and student RN. All student final inspector movement assembly as been reviewed and agreed upon by this RN.
== END 2024-10-24 11:10 | disposition home or self-care (01) ==
PROVIDERS: Emergency Provider Emergency Medicine; Family Provider Family Medicine; PCP Internal Medicine
DX: S76.012A Strain of muscle, fascia and tendon of left hip, initial encounter (principal)
CPT/HCPCS: 73502; 99281; 99283

== ENCOUNTER → 2025-01-01 08:31 | Outpatient (CLI) | payer MEDICARE, OTHER, SELFPAY ==
[2024-03-11 15:29] VITALS: BMI 33.0
--- NOTE | 2025-01-01 08:32 | DI.MRI.S_ITS ---
PROCEDURE: MR HIP LT WO CON INDICATIONS: Evaluate left hip for gluteal tendinopathy TECHNIQUE: Noncontrast coronal T1 spin echo and STIR through the bony pelvis. Coronal and axial T2 fast spin echo with fat saturation, sagittal T1 spin echo, and oblique axial T2 fast spin echo with fat saturation through the hip. COMPARISON: [facility], CR, XR HIP W PEL LT 2V, 10/24/2024, 9:53. Former[facility], CR, ORTHO-XR HIP LT 2V, 12/29/2024, 9:44. FINDINGS: Image quality: Excellent. Bones and joints: Bone marrow of the pelvic ring and proximal femurs show normal signal throughout. No intraosseous lesions or fractures. No avascular necrosis of the femoral head. Postsurgical changes are seen at the lower lumbar spine and sacroiliac joints with associated metal artifact that obscures surrounding structures. Mild degenerative changes at the pubic symphysis. Tendons and ligaments: There is at least high-grade partial tearing of the distal gluteus medius and minimus tendons at their distal insertions. A few attenuated fibers may remain in continuity anteriorly and posteriorly. Moderate trochanteric and small subgluteal bursal effusions. There is mild asymmetric atrophy of the right gluteus musculature. The proximal iliotibial band appears intact. The iliopsoas tendon appears intact, without adjacent bursal fluid collections. The origin of the hamstring tendon demonstrates mild tendinosis. The tendons for the direct and indirect heads of the rectus femoris muscle appear intact. Labrum and cartilage: Diffuse labral degeneration and chronic degenerative tearing. Mild partial-thickness cartilage irregularity with small marginal osteophytes. No significant hip effusion. Soft tissues: Visualized muscles demonstrate normal bulk and internal signal. Quadratus femoris muscle demonstrates no internal edema to suggest ischiofemoral impingement. The proximal sciatic neurovascular bundle appears normal adjacent to the hamstring tendons. Pelvic soft tissues demonstrate no acute abnormality. IMPRESSION: 1. High-grade partial versus complete tearing of the left gluteus medius and minimus tendons at their distal insertions. A few attenuated tendon fibers may remain in continuity. Moderate overlying trochanteric bursal effusion. 2. 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 Diffuse labral degeneration and chronic degenerative tearing. 3. Mild proximal hamstring tendinosis. 4. Postsurgical changes at the lumbar spine and sacroiliac joints. Approved by: Diogenes Maciel M.D. on 01/02/2025 at 15:56
== END ==
PROVIDERS: Family Provider Internal Medicine; PCP Internal Medicine; Referring Provider Orthopaedic Surgery Adult Reconstructive Orthopaedic Surgery; Visit Provider Orthopaedic Surgery Adult Reconstructive Orthopaedic Surgery
DX: M25.552 Pain in left hip (principal); S76.012A Strain of muscle, fascia and tendon of left hip, initial encounter; M25.452 Effusion, left hip; M94.252 Chondromalacia, left hip; Z98.890 Other specified postprocedural states
CPT/HCPCS: 73721

== ENCOUNTER → 2025-01-04 09:45 | Outpatient (CLI) | payer MEDICARE, OTHER, SELFPAY ==
[2024-03-11 15:29] VITALS: BMI 33.0
[2025-01-04 11:52] LABS: Hematocrit 37.3 % (36-46); Hemoglobin 12.6 g/dL (12.0-16.0); Mean Corpuscular HGB Conc 33.7 % (30-36); Mean Corpuscular Hemoglobin 29.8 PG (26-34); Mean Corpuscular Volume 88.5 fL (80-100); Platelet Count 251 X10^3/uL (150-400)
[2025-01-04 12:03] LABS: Appearance Urine UA CLEAR; Bilirubin Urine UA NEGATIVE (NEGATIVE); Color Urine UA YELLOW; Glucose Urine UA NEGATIVE (Negative); Ketones Urine UA NEGATIVE (NEGATIVE); Leukocyte Esterase Urine UA TRACE (NEGATIVE); Nitrite Urine UA NEGATIVE (Negative); Occult Blood Urine UA NEGATIVE (Negative); Protein Urine UA NEGATIVE (Negative); Specific Gravity Urine UA 1.010 (1.000-1.035); Urobilinogen Urine UA 0.2 E.U./dL (0.2)
[2025-01-04 12:04] LABS: pH Urine UA 5.5 (4.5-8.0)
[2025-01-04 12:10] LABS: Culture Indicated Urine Specimen Cultured
[2025-01-04 12:24] LABS: Alanine Aminotransferase 21 IU/L (<35); Albumin 4.2 g/dL (3.5-5.0); Albumin Globulin Ratio 1.6 (1.0-2.8); Alkaline Phosphatase 77 U/L (38-126); Amylase 60 U/L (30-110); Blood Urea Nitrogen 36 mg/dL (7-17); Calcium 9.5 mg/dL (8.4-10.2); Carbon Dioxide 27 mmol/L (22-32); Chloride 100 mmol/L (98-107); Estimated Glomerular Filt Rate 34 mL/min (>60); Globulin 2.6 g/dL (1.7-4.1); Glucose 114 mg/dL (70-99); HEMOLYSIS < 15 (0-50); Lipase 304 U/L (23-300); Potassium 4.4 mmol/L (3.4-5.1); Sodium 138 mmol/L (137-145); Total Protein 6.8 g/dL (6.3-8.2)
== END ==
PROVIDERS: Family Provider Internal Medicine; PCP Internal Medicine; Referring Provider Internal Medicine; Visit Provider Internal Medicine
DX: R11.0 Nausea (principal); R10.9 Unspecified abdominal pain; R10.30 Lower abdominal pain, unspecified
CPT/HCPCS: 36415; 80053; 81001; 82150; 83690; 85027; 87077; 87086; 87186